=== PATIENT | male | born 1970 | race Caucasian/White ===

== ENCOUNTER 2018-09-21 15:08 | Inpatient (IN) | payer OTHER, SELFPAY ==
--- NOTE | 2018-09-21 16:33 | RAD ---
SINGLE VIEW OF THE CHEST: Comparison: 09-24-16 History: Chest pain, shortness of breath. FINDINGS: Single view of the chest shows an enlarged but stable cardiomediastinal silhouette. Multifocal mixed opacities are seen scattered throughout the lungs. IMPRESSION: Scattered multifocal opacities may represent pulmonary edema or multifocal infiltrates. POS: [facility]
[2018-09-21] MEDS ORDERED: Morphine 2 MG/ML SYRINGE ONE (17:19)
[2018-09-21] MEDS ORDERED: cefTRIAXone\\ROCEPHIN 2 GM VIAL ONE (17:20)
[2018-09-21 17:26] LABS: #Eosinphils 0.1 thou/uL (0.0-0.7); #Lymphocytes 2.6 thou/uL (1.20-3.40); #Monocytes 0.9 thou/uL (0.11-0.59); #Neutrophils 7.5 thou/uL (1.40-6.50); %Basophils 0.2 % (0.0-1.0); %Eosinophils 0.6 % (0.0-10.0); %Lymphocytes 23.7 % (21.0-51.0); %Monocytes 7.9 % (0.0-10.0); %Neutrophils 67.5 % (42.0-75.0); Hemoglobin 15.9 g/dL (14.0-18.0); Mean Corpuscular HGB CONC 34.2 g/dL (32.0-36.0); Mean Corpuscular Hemoglobin 35.2 pg (27.0-31.0); Mean Platelet Volume 7.3 fL (7.4-10.4); Platelet Count 266 thou/uL (130-400); RBC Distribution Width 13.5 % (11.5-14.5); Red Blood Cell (RBC) Count 4.52 mill/uL (4.70-6.10); White Blood Cell (WBC) Count 11.1 thou/uL (4.8-10.8)
--- NOTE | 2018-09-21 17:47 | ULT ---
BILATERAL LOWER EXTREMITY VENOUS ULTRASOUND: Comparison: 09-24-16 History: Severe bilateral lower extremity edema. Technique: Multiplanar grayscale and color doppler images were obtained in a bilateral lower extremit y venous ultrasound. Spectral analysis of the doppler waveforms were performed. FINDINGS: This is exam is limited due to patient's large body habitus. No thrombus is visualized within the com mon femoral veins, profunda femoral veins, superficial femoral veins, or popliteal veins. There is la ck of compressibility of the bilateral superficial femoral veins, but is likely to be secondary to shaniqua damon's body habitus rather than thrombus. The popliteal veins were unable to be seen on either side. The posterior tibial veins were unable to be seen. Greater saphenous vein is patent bilaterally. IMPRESSION: Limited exam without obvious thrombus in the venous structures above the knee. POS: [facility]
[2018-09-21 17:52] LABS: ALT (SGPT) 20 U/L (8-55); AST (SGOT) 24 U/L (5-34); Albumin 3.5 g/dL (3.5-5.0); Alkaline Phosphatase 123 U/L (40-150); Anion Gap 14 mmol/L (10-20); BUN (Urea Nitrogen) Less than 4 mg/dL (8.9-20.6); CK (CPK) 38 U/L (30-200); Calc. Creatinine Clearance 0 mL/min (70-130); Calcium 9.5 mg/dL (7.8-10.44); Carbon Dioxide 32 mmol/L (22-29); Chloride 90 mmol/L (98-107); Estimated GFR-MDRD Greater than 90; Globulin 3.6 g/dL (2.4-3.5); Glucose 93 mg/dL (70-105); Potassium 3.3 mmol/L (3.5-5.1); Protein, Total 7.1 g/dL (6.0-8.3); Sodium 133 mmol/L (136-145)
[2018-09-21 17:56] LABS: CKMB 0.9 ng/mL (0-6.6); Troponin I Less than 0.010 ng/mL (< 0.028)
[2018-09-21] MEDS ORDERED: Azithromycin 500 MG VIAL ONE (18:50)
[2018-09-21] MEDS ORDERED: Ondansetron ODT 4 MG TAB PO PRN (20:19)
[2018-09-21] MEDS ORDERED: Calcium Carbonate 500 MG ChewTAB PO PRN (20:19)
[2018-09-21] MEDS ORDERED: Zolpidem Tartrate 5 MG TAB PO PRN (20:19)
[2018-09-21] MEDS ORDERED: Acetaminophen 325 MG TAB PO PRN (20:19)
[2018-09-21] MEDS ORDERED: Ondansetron PF 4 MG/2 ML Vial IVP PRN (20:19)
[2018-09-21] MEDS ORDERED: Famotidine 20 MG TAB ONE (23:29)
[2018-09-22 03:52] LABS: #Lymphocytes 2.7 thou/uL (1.20-3.40); #Monocytes 0.8 thou/uL (0.11-0.59); #Neutrophils 6.5 thou/uL (1.40-6.50); %Basophils 0.2 % (0.0-1.0); %Eosinophils 0.5 % (0.0-10.0); %Neutrophils 64.3 % (42.0-75.0); Hemoglobin 14.9 g/dL (14.0-18.0); Mean Corpuscular HGB CONC 33.8 g/dL (32.0-36.0); Mean Corpuscular Hemoglobin 35.2 pg (27.0-31.0); Mean Platelet Volume 7.2 fL (7.4-10.4); Platelet Count 245 thou/uL (130-400); RBC Distribution Width 13.7 % (11.5-14.5); Red Blood Cell (RBC) Count 4.23 mill/uL (4.70-6.10)
[2018-09-22 04:09] LABS: Anion Gap 12 mmol/L (10-20); BUN (Urea Nitrogen) 5 mg/dL (8.9-20.6); Calc. Creatinine Clearance 0 mL/min (70-130); Carbon Dioxide 33 mmol/L (22-29); Chloride 93 mmol/L (98-107); Estimated GFR-MDRD Greater than 90; Glucose 105 mg/dL (70-105); Potassium 3.5 mmol/L (3.5-5.1); Sodium 134 mmol/L (136-145)
[2018-09-22] MEDS ORDERED: Furosemide 40 MG/4 ML VIAL ONE (05:58)
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
--- NOTE | 2018-09-22 09:15 | PDOC.PN ---
- Subjective Encounter Start Date: 09/22/18 Encounter Start Time: 09:13 Subjective: pleuritic pain with coughing - Objective Resuscitation Status - Order Detail: 09/21/18 20:19 Resuscitation Status Routine Resuscitation Status: FULL: Full Resuscitation MAR Reviewed: Yes Vital Signs & Weight: Vital Signs (12 hours) Pulse Resp Pulse Ox 09/22/18 06:54 90 20 93 L 09/21/18 23:19 93 L 09/21/18 23:18 103 H 22 H 93 L Result Diagrams: 09/22/18 03:33 09/22/18 03:33 Phys Exam - Physical Examination Neck: no JVD Respiratory: clear to auscultation bilateral Cardiovascular: RRR, no significant murmur Gastrointestinal: soft, positive bowel sounds lymphedema, chronic severe changes Dx/Plan (1) Chronic hypercapnic respiratory failure Code(s): J96.12 - CHRONIC RESPIRATORY FAILURE WITH HYPERCAPNIA Status: Acute (2) Alcohol abuse Code(s): F10.10 - ALCOHOL ABUSE, UNCOMPLICATED Status: Acute (3) COPD exacerbation Code(s): J44.1 - CHRONIC OBSTRUCTIVE PULMONARY DISEASE W (ACUTE) EXACERBATION Status: Acute (4) HTN (hypertension) Code(s): I10 - ESSENTIAL (PRIMARY) HYPERTENSION Status: Acute (5) Lymphedema of both lower extremities Code(s): I89.0 - LYMPHEDEMA, NOT ELSEWHERE CLASSIFIED Status: Acute (6) Pickwickian syndrome Code(s): E66.2 - MORBID (SEVERE) OBESITY WITH ALVEOLAR HYPOVENTILATION Status : Acute (7) Tobacco abuse Code(s): Z72.0 - TOBACCO USE Status: Acute (8) Morbid obesity Code(s): E66.01 - MORBID (SEVERE) OBESITY DUE TO EXCESS CALORIES Status: Chronic - Plan cont tx for COPD exac -: cont iv lasix -: cxr does not appear changed on my review * .
[2018-09-22] MEDS ORDERED: predniSONE 20 MG TAB ONE (09:18)
[2018-09-22] MEDS ORDERED: Famotidine/PF 20 mg/2ml Vial ONE (09:18)
[2018-09-22] MEDS ORDERED: Enoxaparin Sodium 40 MG/0.4 ML SYRINGE ONE ×2 (09:18)
[2018-09-22] MEDS ORDERED: Acetaminophen 325 MG TAB ONE (12:47)
[2018-09-22] MEDS: Famotidine 20 MG TAB PO SCH ×2 (15:08→20:42)
[2018-09-22] MEDS: Famotidine/PF 20 mg/2ml Vial SLOW IVP SCH ×2 (15:08→20:42)
[2018-09-22] MEDS: Enoxaparin Sodium 40 MG/0.4 ML SYRINGE SC SCH (15:09)
[2018-09-22] MEDS: predniSONE 20 MG TAB PO SCH (15:09)
[2018-09-22] MEDS: Furosemide 40 MG/4 ML VIAL SLOW IVP SCH ×2 (15:09→17:04)
[2018-09-23] MEDS: Furosemide 40 MG/4 ML VIAL SLOW IVP SCH ×2 (05:59→15:32)
[2018-09-23] MEDS: predniSONE 20 MG TAB PO SCH (08:26)
[2018-09-23] MEDS: Enoxaparin Sodium 40 MG/0.4 ML SYRINGE SC SCH (08:26)
[2018-09-23] MEDS: Famotidine 20 MG TAB PO SCH ×2 (08:26→20:17)
[2018-09-23] MEDS: Famotidine/PF 20 mg/2ml Vial SLOW IVP SCH ×2 (08:27→20:17)
--- NOTE | 2018-09-23 10:27 | PDOC.PN ---
- Subjective Encounter Start Date: 09/23/18 Encounter Start Time: 10:26 Subjective: less sob - Objective Resuscitation Status - Order Detail: 09/21/18 20:19 Resuscitation Status Routine Resuscitation Status: FULL: Full Resuscitation MAR Reviewed: Yes Vital Signs & Weight: Vital Signs (12 hours) Temp Pulse Resp BP BP Pulse Ox 09/23/18 07:24 98 F 90 21 H 147/72 H 91 L 09/23/18 07:06 90 18 09/23/18 04:00 97.9 F 88 20 157/83 H 92 L 09/23/18 01:23 87 18 89 L 09/23/18 00:00 97.7 F 92 20 143/68 H 92 L I&O: 09/22/18 09/23/18 09/24/18 06:59 06:59 06:59 Intake Total 630 Output Total 2400 200 Balance -1770 -200 Result Diagrams: 09/22/18 03:33 09/22/18 03:33 Phys Exam - Physical Examination Neck: no JVD Respiratory: clear to auscultation bilateral Cardiovascular: RRR, no significant murmur Gastrointestinal: soft, positive bowel sounds 4+ lymphedema Dx/Plan (1) Chronic hypercapnic respiratory failure Code(s): J96.12 - CHRONIC RESPIRATORY FAILURE WITH HYPERCAPNIA Status: Acute (2) Alcohol abuse Code(s): F10.10 - ALCOHOL ABUSE, UNCOMPLICATED Status: Acute (3) COPD exacerbation Code(s): J44.1 - CHRONIC OBSTRUCTIVE PULMONARY DISEASE W (ACUTE) EXACERBATION Status: Acute (4) HTN (hypertension) Code(s): I10 - ESSENTIAL (PRIMARY) HYPERTENSION Status: Acute (5) Lymphedema of both lower extremities Code(s): I89.0 - LYMPHEDEMA, NOT ELSEWHERE CLASSIFIED Status: Acute (6) Pickwickian syndrome Code(s): E66.2 - MORBID (SEVERE) OBESITY WITH ALVEOLAR HYPOVENTILATION Status : Acute (7) Tobacco abuse Code(s): Z72.0 - TOBACCO USE Status: Acute (8) Morbid obesity Code(s): E66.01 - MORBID (SEVERE) OBESITY DUE TO EXCESS CALORIES Status: Chronic - Plan cont iv lasix -: cont nebs, levaquin, teper steroids * .
[2018-09-24] MEDS: Furosemide 40 MG/4 ML VIAL SLOW IVP SCH ×2 (05:30→15:07)
[2018-09-24] MEDS: Famotidine 20 MG TAB PO SCH ×2 (08:13→20:00)
[2018-09-24] MEDS: Famotidine/PF 20 mg/2ml Vial SLOW IVP SCH ×2 (08:14→20:00)
[2018-09-24] MEDS: predniSONE 20 MG TAB PO SCH (08:14)
[2018-09-24] MEDS: Enoxaparin Sodium 40 MG/0.4 ML SYRINGE SC SCH (08:14)
--- NOTE | 2018-09-24 09:43 | PDOC.PN ---
- Subjective Encounter Start Date: 09/24/18 Encounter Start Time: 09:41 Subjective: some SOB, desats quickly with exertion - Objective Resuscitation Status - Order Detail: 09/21/18 20:19 Resuscitation Status Routine Resuscitation Status: FULL: Full Resuscitation MAR Reviewed: Yes Vital Signs & Weight: Vital Signs (12 hours) Temp Pulse Resp BP BP Pulse Ox 09/24/18 08:08 98.6 F 104 H 20 107/61 90 L 09/24/18 06:56 89 20 92 L 09/24/18 04:00 98.1 F 107 H 20 112/62 90 L 09/24/18 01:39 97.8 F 93 18 128/76 92 L 09/24/18 00:08 93 20 92 L I&O: 09/23/18 09/24/18 09/25/18 06:59 06:59 06:59 Intake Total 630 Output Total 2400 3000 Balance -1770 -3000 Result Diagrams: 09/22/18 03:33 09/22/18 03:33 Phys Exam - Physical Examination Neck: no JVD Respiratory: clear to auscultation bilateral Cardiovascular: RRR, no significant murmur Gastrointestinal: soft, positive bowel sounds 4+ lymphedema Dx/Plan (1) Chronic hypercapnic respiratory failure Code(s): J96.12 - CHRONIC RESPIRATORY FAILURE WITH HYPERCAPNIA Status: Acute (2) Alcohol abuse Code(s): F10.10 - ALCOHOL ABUSE, UNCOMPLICATED Status: Acute (3) COPD exacerbation Code(s): J44.1 - CHRONIC OBSTRUCTIVE PULMONARY DISEASE W (ACUTE) EXACERBATION Status: Acute (4) HTN (hypertension) Code(s): I10 - ESSENTIAL (PRIMARY) HYPERTENSION Status: Acute Qualifiers: Hypertension type: essential hypertension Qualified Code(s): I10 - Essential (primary) hypertension (5) Lymphedema of both lower extremities Code(s): I89.0 - LYMPHEDEMA, NOT ELSEWHERE CLASSIFIED Status: Acute (6) Pickwickian syndrome Code(s): E66.2 - MORBID (SEVERE) OBESITY WITH ALVEOLAR HYPOVENTILATION Status : Acute (7) Tobacco abuse Code(s): Z72.0 - TOBACCO USE Status: Acute (8) Morbid obesity Code(s): E66.01 - MORBID (SEVERE) OBESITY DUE TO EXCESS CALORIES Status: Chronic - Plan CXR, ABG, CBC-then reevaluate * .
[2018-09-24 09:57] LABS: Actual Bicarbonate (HCO3a) 33.4 mEq/L (22-28); Base Excess (BEa) 9.1 mEq/L (-2.0 to +3.0); CO2 Tension 43.8 mmHg (35.0-45.0); Calcium, Ionized 1.09 mmol/L (1.12-1.30); Carboxyhemoglobin (COHb) 2.3 gm% (0.0-3.0); Hemoglobin (Hb) 14.9 g/dL (14.0-18.0); Potassium - ABG Lab 3.54 mmol/L (3.70-5.30)
[2018-09-24 09:59] LABS: Puncture Site RRA
[2018-09-24 10:32] LABS: #Lymphocytes 1.5 thou/uL (1.20-3.40); #Monocytes 0.8 thou/uL (0.11-0.59); #Neutrophils 7.3 thou/uL (1.40-6.50); %Basophils 0.3 % (0.0-1.0); %Eosinophils 0.3 % (0.0-10.0); %Lymphocytes 15.7 % (21.0-51.0); %Monocytes 8.4 % (0.0-10.0); %Neutrophils 75.2 % (42.0-75.0); Hemoglobin 14.3 g/dL (14.0-18.0); Mean Corpuscular HGB CONC 31.9 g/dL (32.0-36.0); Mean Corpuscular Hemoglobin 33.4 pg (27.0-31.0); Mean Platelet Volume 7.3 fL (7.4-10.4); Platelet Count 258 thou/uL (130-400); RBC Distribution Width 13.4 % (11.5-14.5); Red Blood Cell (RBC) Count 4.27 mill/uL (4.70-6.10); White Blood Cell (WBC) Count 9.7 thou/uL (4.8-10.8)
--- NOTE | 2018-09-24 11:40 | RAD ---
CHEST ONE VIEW: History: Pneumonia. Comparison: 09-21-18 FINDINGS: Cardiac silhouette is magnified and enlarged. Pulmonary vasculature is more engorged than on the prio r study. Patient has had severe wide spread interstitial opacity for many years. It has become progressively m ore severe. No lobar consolidation is evident. No evidence of pneumothorax. IMPRESSION: 1. CHF is favored to be present, upon chronic/worsening interstitial lung disease. 2. No lobar consolidation is evident. POS: [facility]
--- NOTE | 2018-09-24 16:42 | PDOC.EVN ---
Event Note - Event Note Event Note: reviewed cxr, cbc, abg- pulmonology consult
[2018-09-25] MEDS: Furosemide 40 MG/4 ML VIAL SLOW IVP SCH ×2 (05:00→14:34)
[2018-09-25] MEDS: Famotidine/PF 20 mg/2ml Vial SLOW IVP SCH ×2 (08:37→20:14)
[2018-09-25] MEDS: Enoxaparin Sodium 40 MG/0.4 ML SYRINGE SC SCH (08:43)
[2018-09-25] MEDS: predniSONE 20 MG TAB PO SCH (08:43)
[2018-09-25] MEDS: Famotidine 20 MG TAB PO SCH ×2 (08:43→20:13)
--- NOTE | 2018-09-25 08:47 | PDOC.PN ---
- Subjective Encounter Start Date: 09/25/18 Encounter Start Time: 08:45 Subjective: less sob, pos 3000ml diuresis - Objective Resuscitation Status - Order Detail: 09/21/18 20:19 Resuscitation Status Routine Resuscitation Status: FULL: Full Resuscitation Vital Signs & Weight: Vital Signs (12 hours) Temp Pulse Resp BP Pulse Ox 09/25/18 07:15 98.6 F 103 H 22 H 114/64 90 L 09/25/18 06:45 97 16 93 L 09/25/18 04:09 91 L 09/25/18 00:19 95 09/25/18 00:14 102 H 16 94 L I&O: 09/24/18 09/25/18 09/26/18 06:59 06:59 06:59 Intake Total 950 Output Total 5729 5865 Balance -3965 -9692 Result Diagrams: 09/24/18 09:58 09/22/18 03:33 Phys Exam - Physical Examination Constitutional: NAD Neck: no JVD Respiratory: clear to auscultation bilateral Cardiovascular: RRR, no significant murmur Gastrointestinal: soft 4+ lymphedema Dx/Plan (1) Chronic hypercapnic respiratory failure Code(s): J96.12 - CHRONIC RESPIRATORY FAILURE WITH HYPERCAPNIA Status: Acute (2) Alcohol abuse Code(s): F10.10 - ALCOHOL ABUSE, UNCOMPLICATED Status: Acute (3) COPD exacerbation Code(s): J44.1 - CHRONIC OBSTRUCTIVE PULMONARY DISEASE W (ACUTE) EXACERBATION Status: Acute (4) HTN (hypertension) Code(s): I10 - ESSENTIAL (PRIMARY) HYPERTENSION Status: Acute Qualifiers: Hypertension type: essential hypertension Qualified Code(s): I10 - Essential (primary) hypertension (5) Lymphedema of both lower extremities Code(s): I89.0 - LYMPHEDEMA, NOT ELSEWHERE CLASSIFIED Status: Acute (6) Pickwickian syndrome Code(s): E66.2 - MORBID (SEVERE) OBESITY WITH ALVEOLAR HYPOVENTILATION Status : Acute (7) Tobacco abuse Code(s): Z72.0 - TOBACCO USE Status: Acute (8) Morbid obesity Code(s): E66.01 - MORBID (SEVERE) OBESITY DUE TO EXCESS CALORIES Status: Chronic - Plan cont antibx, nebs -: cont diuresis -: discuss with pulmonology * .
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
[2018-09-26] MEDS: Furosemide 40 MG/4 ML VIAL SLOW IVP SCH ×2 (05:22→15:22)
[2018-09-26] MEDS: Famotidine/PF 20 mg/2ml Vial SLOW IVP SCH ×2 (08:47→20:35)
[2018-09-26] MEDS: Enoxaparin Sodium 40 MG/0.4 ML SYRINGE SC SCH (08:48)
[2018-09-26] MEDS: Famotidine 20 MG TAB PO SCH ×2 (08:48→22:29)
[2018-09-26] MEDS: predniSONE 20 MG TAB PO SCH (08:48)
--- NOTE | 2018-09-26 08:53 | PRG ---
DATE OF SERVICE: 09/26/2018 SUBJECTIVE: He feels better. He is continuing diuresis profusely. OBJECTIVE: VITAL SIGNS: Temperature is 98.5, pulse 97, respirations 18, O2 saturation 92% on 3 L, and blood pressure 109/57. Intake 850, output 5900. HEENT: Unremarkable. NECK: No JVD. LUNGS: Clear, but distant. CARDIAC: S1 and S2, regular. ABDOMEN: Obese. EXTREMITIES: Edematous. ASSESSMENT: 1. Biventricular heart failure with significant edema. 2. Probable underlying sleep apnea. PLAN: He is continuing diuresis. Hopefully that will help the appearance of his chest x-ray. Pulmonary will be available as concerns arise. Job ID: [id number]
--- NOTE | 2018-09-26 13:52 | PDOC.PN ---
- Subjective Encounter Start Date: 09/26/18 Encounter Start Time: 10:10 Doing a little better. Breathing slightly better. Says he typically does get up and around a little at home. - Objective Resuscitation Status - Order Detail: 09/21/18 20:19 Resuscitation Status Routine Resuscitation Status: FULL: Full Resuscitation Vital Signs & Weight: Vital Signs (12 hours) Temp Pulse Resp BP BP Pulse Ox 09/26/18 11:45 92 16 93 L 09/26/18 11:35 98.8 F 92 18 116/67 90 L 09/26/18 08:00 98.5 F 97 18 109/57 L 90 L 09/26/18 05:48 95 16 92 L 09/26/18 05:00 99 F 95 20 119/71 92 L I&O: 09/25/18 09/26/18 09/27/18 06:59 06:59 06:59 Intake Total 950 850 Output Total 7251 5900 Balance -0725 -6390 Result Diagrams: 09/24/18 09:58 09/22/18 03:33 Phys Exam - Physical Examination Constitutional: NAD Morbidly obese. Respiratory: no wheezing, no rhonchi Scattered mild rales and coarse breath sounds. Cardiovascular: RRR, no significant murmur, no rub Gastrointestinal: soft, non-tender, no distention, positive bowel sounds Musculoskeletal: no edema Neurological: non-focal Psychiatric: normal affect, A&O x 3 Deviation from normal: Severe hypertrophic chronic stasis dermatitis LE's. Dx/Plan - Plan * .
[2018-09-27] MEDS: Furosemide 40 MG/4 ML VIAL SLOW IVP SCH (06:29)
[2018-09-27 07:05] LABS: #Basophils 0.1 thou/uL (0.0-0.2); #Eosinphils 0.1 thou/uL (0.0-0.7); #Lymphocytes 2.8 thou/uL (1.20-3.40); #Neutrophils 7.4 thou/uL (1.40-6.50); %Basophils 0.6 % (0.0-1.0); %Eosinophils 0.8 % (0.0-10.0); %Lymphocytes 24.9 % (21.0-51.0); %Monocytes 8.8 % (0.0-10.0); %Neutrophils 64.8 % (42.0-75.0); Hemoglobin 15.5 g/dL (14.0-18.0); Mean Corpuscular HGB CONC 32.9 g/dL (32.0-36.0); Mean Corpuscular Hemoglobin 33.9 pg (27.0-31.0); Mean Platelet Volume 7.2 fL (7.4-10.4); Platelet Count 303 thou/uL (130-400); RBC Distribution Width 13.2 % (11.5-14.5); Red Blood Cell (RBC) Count 4.57 mill/uL (4.70-6.10); White Blood Cell (WBC) Count 11.4 thou/uL (4.8-10.8)
[2018-09-27 07:26] LABS: Albumin 3.4 g/dL (3.5-5.0); Chloride 98 mmol/L (98-107)
[2018-09-27 07:27] LABS: Calcium 9.1 mg/dL (7.8-10.44); Potassium 4.4 mmol/L (3.5-5.1); Sodium 134 mmol/L (136-145)
[2018-09-27 07:28] LABS: Globulin 3.2 g/dL (2.4-3.5); Glucose 106 mg/dL (70-105); Protein, Total 6.6 g/dL (6.0-8.3)
[2018-09-27 07:29] LABS: Anion Gap 14 mmol/L (10-20); Carbon Dioxide 26 mmol/L (22-29)
[2018-09-27 07:30] LABS: Bilirubin, Total 1.1 mg/dL (0.2-1.2)
[2018-09-27 07:31] LABS: Alkaline Phosphatase 101 U/L (40-150); Calc. Creatinine Clearance 0 mL/min (70-130); Estimated GFR-MDRD Greater than 90
[2018-09-27 07:32] LABS: BUN (Urea Nitrogen) 13 mg/dL (8.9-20.6)
[2018-09-27 07:33] LABS: AST (SGOT) 47 U/L (5-34)
[2018-09-27 07:34] LABS: ALT (SGPT) 49 U/L (8-55)
[2018-09-27] MEDS: Famotidine/PF 20 mg/2ml Vial SLOW IVP SCH ×2 (07:54→20:10)
[2018-09-27] MEDS: Enoxaparin Sodium 40 MG/0.4 ML SYRINGE SC SCH (07:54)
[2018-09-27] MEDS: predniSONE 20 MG TAB PO SCH (07:54)
[2018-09-27] MEDS: Famotidine 20 MG TAB PO SCH ×2 (07:54→20:50)
--- NOTE | 2018-09-27 13:06 | PDOC.PN ---
- Subjective Encounter Start Date: 09/27/18 Encounter Start Time: 11:15 Patient is feeling better. Getting back to his baseline. Was able to get up to bathroom to get bathed. Gives history that he was given Lasix and HCTZ and lost 120 pounds over several months. He was getting routine monthly labs. He was told at one point that his kidneys were failing and to stop the HCTZ. He went to see the provider and was told that his kidneys and liver were failing and that he was terminal. He left that clinic out of frustration and therefore did not have any more diuretics. He then regained substantial weight and edema. - Objective Resuscitation Status - Order Detail: 09/21/18 20:19 Resuscitation Status Routine Resuscitation Status: FULL: Full Resuscitation Vital Signs & Weight: Vital Signs (12 hours) Temp Pulse Resp BP Pulse Ox 09/27/18 11:36 91 18 93 L 09/27/18 08:12 98.7 F 91 18 165/69 H 92 L 09/27/18 05:55 94 18 92 L I&O: 09/26/18 09/27/18 09/28/18 06:59 06:59 06:59 Intake Total 850 900 Output Total 5900 3900 Balance -5050 -3000 Result Diagrams: 09/27/18 06:50 09/27/18 06:50 Phys Exam - Physical Examination Constitutional: NAD Appears to have JULIA while sleeping. Fairly easily awakened. NAD. Respiratory: no wheezing, no rales, no rhonchi, clear to auscultation bilateral Cardiovascular: RRR, no significant murmur, no rub Gastrointestinal: soft, non-tender, no distention Substantial obesity in LE's, but edema largely resolved. Neurological: non-focal, normal sensation Psychiatric: normal affect, A&O x 3 Deviation from normal: Chronic, severe stasis dermatitis with thick scaling. Dx/Plan (1) Acute respiratory failure Code(s): J96.00 - ACUTE RESPIRATORY FAILURE, UNSP W HYPOXIA OR HYPERCAPNIA Status: Acute (2) Right heart failure Status: Chronic (3) Chronic hypercapnic respiratory failure Code(s): J96.12 - CHRONIC RESPIRATORY FAILURE WITH HYPERCAPNIA Status: Chronic (4) HTN (hypertension) Code(s): I10 - ESSENTIAL (PRIMARY) HYPERTENSION Status: Chronic Qualifiers: Hypertension type: essential hypertension Qualified Code(s): I10 - Essential (primary) hypertension (5) Lymphedema of both lower extremities Code(s): I89.0 - LYMPHEDEMA, NOT ELSEWHERE CLASSIFIED Status: Chronic (6) Pickwickian syndrome Code(s): E66.2 - MORBID (SEVERE) OBESITY WITH ALVEOLAR HYPOVENTILATION Status : Chronic (7) Tobacco abuse Code(s): Z72.0 - TOBACCO USE Status: Chronic (8) Morbid obesity Code(s): E66.01 - MORBID (SEVERE) OBESITY DUE TO EXCESS CALORIES Status: Chronic - Plan * Very close to his baseline. Will change IV's meds to po today. * Ambulate today. * Anticipate discharge tomorrow for outpatient followup. * Continue diuresis.
[2018-09-27] MEDS: Furosemide 40 MG TAB PO SCH (13:52)
[2018-09-28 06:36] LABS: #Basophils 0.1 thou/uL (0.0-0.2); #Eosinphils 0.1 thou/uL (0.0-0.7); #Lymphocytes 2.9 thou/uL (1.20-3.40); #Neutrophils 7.6 thou/uL (1.40-6.50); %Basophils 0.7 % (0.0-1.0); %Lymphocytes 24.6 % (21.0-51.0); %Monocytes 8.8 % (0.0-10.0); %Neutrophils 64.9 % (42.0-75.0); Hemoglobin 15.2 g/dL (14.0-18.0); Mean Corpuscular HGB CONC 32.8 g/dL (32.0-36.0); Mean Corpuscular Hemoglobin 33.6 pg (27.0-31.0); Mean Platelet Volume 7.2 fL (7.4-10.4); Platelet Count 301 thou/uL (130-400); RBC Distribution Width 13.1 % (11.5-14.5); Red Blood Cell (RBC) Count 4.52 mill/uL (4.70-6.10); White Blood Cell (WBC) Count 11.7 thou/uL (4.8-10.8)
[2018-09-28 06:53] LABS: Anion Gap 10 mmol/L (10-20); BUN (Urea Nitrogen) 14 mg/dL (8.9-20.6); Calc. Creatinine Clearance 0 mL/min (70-130); Calcium 9.1 mg/dL (7.8-10.44); Carbon Dioxide 31 mmol/L (22-29); Chloride 97 mmol/L (98-107); Estimated GFR-MDRD Greater than 90; Glucose 98 mg/dL (70-105); Potassium 4.1 mmol/L (3.5-5.1); Sodium 134 mmol/L (136-145)
[2018-09-28 07:25] VITALS: BP 136/74; TEMP 98.4
[2018-09-28] MEDS: Famotidine/PF 20 mg/2ml Vial SLOW IVP SCH (08:09)
[2018-09-28] MEDS: Famotidine 20 MG TAB PO SCH (08:11)
[2018-09-28] MEDS: Enoxaparin Sodium 40 MG/0.4 ML SYRINGE SC SCH (08:11)
[2018-09-28] MEDS: predniSONE 20 MG TAB PO SCH (08:11)
[2018-09-28] MEDS: Furosemide 40 MG TAB PO SCH (08:11)
--- NOTE | 2018-09-30 09:03 | DIS ---
DATE OF ADMISSION: 09/21/2018 DATE OF DISCHARGE: 09/28/2018 DISCHARGE DIAGNOSES: 1. Acute respiratory failure. 2. Right heart failure. 3. Chronic hypercapnic respiratory failure. 4. Hypertension. 5. Chronic lymphedema of both lower extremities. 6. Pickwickian syndrome. 7. Tobacco abuse. 8. Morbid obesity. HISTORY: This patient is a 48-year-old male, who is substantially obese, who has some chronic stasis in his lower extremities. The patient reports that he had been going to a clinic and was prescribed diuretics including Lasix and spironolactone for his severe fluid retention in his legs. He reports that he lost approximately 120 pounds with the diuretics. He reports he was getting regular lab work. He was subsequently told to follow up with the clinic, where he was told that he had kidney and liver failure and that he was terminal. He decided that he did not want to follow up with that clinic any further because of this, and he subsequently had no more access to his diuretics. He then gained about another 100 pounds and presented to the emergency department with complaints of dyspnea on exertion and generalized shortness of breath. His initial chest x-ray was concerning for the possibility of some pulmonary edema. Of note, the patient was also a continued fairly heavy smoker. HOSPITAL COURSE: The patient was admitted to the hospital with shortness of breath, likely a result of fluid overload and potentially some COPD. He was initially thought to possibly have some cellulitis of the lower extremities as well and he was started on antibiotics including vancomycin. The patient was started back on diuretics as well, and over the following several days, had substantial diuresis. The patient continued to have improvement and was able to become more functional and less short of breath. His lower extremities had decrease in erythema and it was felt that this was more likely related to chronic stasis dermatitis than it was acute infection, antibiotics were discontinued. He was seen in consultation by Pulmonology. The patient certainly was deserving a more workup. However, his morbid obesity made it impossible for him to undergo some of the testing that would have been appropriate including CT scan of the chest. The patient was felt to likely have congestive heart failure related to diastolic dysfunction and likely some systolic function as well, although this could not be fully elucidated given limitations of his workup. Ultimately, he did respond well to the antibiotics and felt like he was back to his baseline breathing and functional status. PHYSICAL EXAMINATION: VITAL SIGNS: On the day of discharge, temperature 98.4, pulse 93, respirations 20, O2 saturation 93% on 3 L, and BP was 136/74. GENERAL: He is awake, alert, oriented, pleasant, and cooperative. HEART: Regular rate and rhythm without murmurs, gallops, or rubs. LUNGS: Clear, slightly diminished. ABDOMEN: Morbidly obese, nondistended, and nontender. EXTREMITIES: Had persistent erythema and chronic thickened skin with scaling, but no evidence of acute cellulitic changes. DISPOSITION: The patient was strongly advised to quit smoking. He stated that he felt confident that he could stop smoking on his own as he had done it previously. He reports that his also smoked, but was very good about staying away from him. When she did so, so as not to make it harder for him to quit. He also understands that he likely has obstructive sleep apnea and needs to get full testing once he is capable of doing so as an outpatient. The patient is discharged to home. He is to be on a regular diet. His activity level is as tolerated. He will be on Lasix 40 mg p.o. daily. He is to follow up with Dr. Gurmeet Negrete as an outpatient. He can return to the hospital should he have any problems prior to that time. The patient also has information on establishing with a new PCP provider as well. Job ID: [id number]
== END 2018-09-28 13:09 | disposition home or self-care (01) | DRG 291 ==
LOC: ERS 15:08 → ERHOLD 19:49 → T4-A 09-22 14:39
PROVIDERS: ADMIT Internal Medicine; ATTEND Internal Medicine
PROC: B51D1ZZ Fluoroscopy of Bilateral Lower Extremity Veins using Low Osmolar Contrast (ICD-10-PCS; principal; 2018-09-21)
DX: I11.0 Hypertensive heart disease with heart failure (principal); J96.22 Acute and chronic respiratory failure with hypercapnia; J44.1 Chronic obstructive pulmonary disease with (acute) exacerbation; E66.2 Morbid (severe) obesity with alveolar hypoventilation; I50.42 Chronic combined systolic (congestive) and diastolic (congestive) heart failure; F10.10 Alcohol abuse, uncomplicated; I89.0 Lymphedema, not elsewhere classified; F17.210 Nicotine dependence, cigarettes, uncomplicated; E66.01 Morbid (severe) obesity due to excess calories; G47.33 Obstructive sleep apnea (adult) (pediatric)
CPT/HCPCS: 36415; 71045; 80048; 80053; 82550; 82553; 82805; 83880; 84484; 85025; 85379; 93005; 93970; 94640; 96365; 96366; 96367; 96375; 99406; J0456; J0696; J1650; J1940; J1956; J2270; J3370; J7050; J7506; J7620; S0028

== ENCOUNTER 2019-02-09 10:11 | Inpatient (IN) | payer SELFPAY ==
--- NOTE | 2019-02-09 10:44 | RAD ---
PORTABLE CHEST 1 VIEW: DATE: 02/09/2019. TIME: 10:21 a.m. HISTORY: Dyspnea. FINDINGS: Comparison is made with the exam of 09/24/2018. The heart is enlarged. There is pulmonary vascular congestion. Plate of atelectasis versus infiltra te is seen in the left mid lung. No pneumothoraces or large effusions are identified. POS: [facility]
[2019-02-09 11:07] LABS: #Eosinphils 0.1 thou/uL (0.0-0.7); #Lymphocytes 2.7 thou/uL (1.20-3.40); #Monocytes 0.7 thou/uL (0.11-0.59); #Neutrophils 5.2 thou/uL (1.40-6.50); %Basophils 0.5 % (0.0-1.0); %Eosinophils 1.2 % (0.0-10.0); %Lymphocytes 31.3 % (21.0-51.0); %Monocytes 7.8 % (0.0-10.0); %Neutrophils 59.1 % (42.0-75.0); Hemoglobin 16.7 g/dL (14.0-18.0); Mean Corpuscular HGB CONC 32.2 g/dL (32.0-36.0); Mean Corpuscular Hemoglobin 32.9 pg (27.0-31.0); Mean Platelet Volume 8.5 fL (7.4-10.4); Platelet Count 236 thou/uL (130-400); RBC Distribution Width 14.1 % (11.5-14.5); Red Blood Cell (RBC) Count 5.06 mill/uL (4.70-6.10); White Blood Cell (WBC) Count 8.7 thou/uL (4.8-10.8)
[2019-02-09] MEDS ORDERED: Aspirin Chewable 81 MG TAB ONE (11:59)
[2019-02-09 12:05] LABS: ALT (SGPT) 40 U/L (8-55); AST (SGOT) 55 U/L (5-34); Albumin 3.1 g/dL (3.5-5.0); Alkaline Phosphatase 124 U/L (40-150); Anion Gap 17 mmol/L (10-20); BUN (Urea Nitrogen) Less than 4 mg/dL (8.9-20.6); Bilirubin, Total 0.8 mg/dL (0.2-1.2); CK (CPK) 29 U/L (30-200); Calc. Creatinine Clearance 0 mL/min (70-130); Calcium 9.1 mg/dL (7.8-10.44); Carbon Dioxide 28 mmol/L (22-29); Chloride 95 mmol/L (98-107); Estimated GFR-MDRD Greater than 90; Globulin 3.9 g/dL (2.4-3.5); Glucose 76 mg/dL (70-105); Potassium 3.6 mmol/L (3.5-5.1); Sodium 136 mmol/L (136-145)
[2019-02-09 14:03] LABS: Troponin I Less than 0.010 ng/mL (< 0.028)
[2019-02-09 15:09] LABS: Lactic Acid 1.2 mmol/L (0.5-2.2)
[2019-02-09] MEDS ORDERED: Acetaminophen 325 MG TAB PO PRN (16:09)
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
[2019-02-09 17:25] LABS: Troponin I Less than 0.010 ng/mL (< 0.028)
[2019-02-09] MEDS: Nicotine 21 MG PATCH TD SCH (21:16)
--- NOTE | 2019-02-09 23:08 | ULT ---
Bilateral lower extremity venous Doppler ultrasound: 02/09/2019 COMPARISON: None HISTORY: Swelling, edema, assess for DVT TECHNIQUE: Multiplanar grayscale sonographic imaging venous structures bilateral lower extremities ob tained with color flow and spectral analysis FINDINGS: Bilateral common femoral veins, greater saphenous veins, profunda femoral veins, femoral ve ins, popliteal veins, and posterior tibial veins appear patent. There is normal blood flow augmentation and compression within the deep venous system bilaterally. No evidence for DVT. Prominen t edema is noted within bilateral lower extremities. IMPRESSION: No evidence for deep venous thrombosis of either lower extremity.
--- NOTE | 2019-02-10 01:09 | CON ---
DATE OF CONSULTATION: 02/09/2019 I am seeing Mr. 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 His problems are from, 1. Paroxysmal atrial flutter with rapid ventricular rates, possibly typical isthmus dependent in morphology. a. Spontaneous conversion back to sinus rhythm noted in the ER. 2. History of preserved LV systolic function by echo and no significant valvular heart disease. 3. Morbid obesity. 4. Chronic lower extremity lymphedema. ALLERGIES: NONE NOTED. MEDICATIONS: At home included ipratropium, aspirin, nicotine patch, furosemide , and Lovenox. SUBJECTIVE: Mr. Morgan is here with progressive dyspnea over last week. It is much worse with ambulation. Denies PND or orthopnea, but does wake up at night being feeling somewhat short of breath. Uses 2 L oxygen at home. He has occasional cough with mild productive atypical chest pains also noted. He does not pass out. Denies palpitations or sensation of rapid heartbeats. No fever, chills, cough. He has chronic lower extremity edema which is massive. REVIEW OF SYSTEMS: Rest of 12-point system otherwise unremarkable. PAST MEDICAL HISTORY: As above. He has history of obesity and hypoventilation syndrome, chronic bilateral lymphedema. SOCIAL HISTORY: The patient smokes one pack of cigarettes a day. Denies drug use. Drinks two alcoholic drinks a day. FAMILY HISTORY: Not contributory, but significant for hypertension and coronary artery disease. OBJECTIVE: VITAL SIGNS: Blood pressure is 146/68, heart rate 96, respirations 20. The patient is afebrile. GENERAL: Alert and oriented, morbidly obese man, in no apparent distress. NECK: Supple. Jugular veins not distended. CHEST: Coarse without crackles. HEART: Sounds are regular to rate and rhythm. No murmur or gallop is heard. Distant heart sounds are noted. PMI is nonpalpable. ABDOMEN: Benign. Bowel sounds positive. Hepatosplenomegaly is not able to palpate. LOWER EXTREMITIES: Bilaterally, has extreme swelling, chronic venous stasis, and lymphedema is present. Stasis dermatitis also noted. ASSESSMENT AND PLAN: Mr. Morgan is a pleasant 48-year-old man with prior history of atrial flutter, which is newly found, appears to be typical isthmus dependent based on EKG morphology. He spontaneously converted back to sinus rhythm. The exact duration of the flutter is unclear, but he has had symptoms for about a week. The atrial flutter with rapid rates could contribute to his exertional dyspnea. I discussed the mechanism of atrial flutter and the potential treatment options. We discussed option of medical suppression, but also discussed the benefit of atrial flutter ablation. This may be a consideration for him, although due to his morbid obesity, venous access might be challenging. For now, he is undecided for which treatment options to take. I will keep him n.p.o. for tomorrow for potential EP study ablation. Hold Lovenox tomorrow. 2D echo and venous Doppler will be requested. Addendum. Pt jackson proved to be in excess of the cathlab table's weight limit. Continuing medical therapy. Job ID: [id number] [facility]
[2019-02-10] MEDS: Furosemide 40 MG/4 ML VIAL SLOW IVP SCH ×2 (06:02→16:00)
[2019-02-10 06:43] LABS: #Basophils 0.1 thou/uL (0.0-0.2); #Eosinphils 0.1 thou/uL (0.0-0.7); #Lymphocytes 2.8 thou/uL (1.20-3.40); #Monocytes 0.8 thou/uL (0.11-0.59); #Neutrophils 5.6 thou/uL (1.40-6.50); %Basophils 0.8 % (0.0-1.0); %Eosinophils 1.1 % (0.0-10.0); %Lymphocytes 29.7 % (21.0-51.0); %Monocytes 8.3 % (0.0-10.0); %Neutrophils 60.1 % (42.0-75.0); Hemoglobin 14.5 g/dL (14.0-18.0); Mean Corpuscular HGB CONC 32.5 g/dL (32.0-36.0); Mean Corpuscular Hemoglobin 33.4 pg (27.0-31.0); Mean Platelet Volume 8.5 fL (7.4-10.4); Platelet Count 222 thou/uL (130-400); RBC Distribution Width 14.2 % (11.5-14.5); Red Blood Cell (RBC) Count 4.33 mill/uL (4.70-6.10); White Blood Cell (WBC) Count 9.3 thou/uL (4.8-10.8)
[2019-02-10 06:54] LABS: Anion Gap 10 mmol/L (10-20); BUN (Urea Nitrogen) 4 mg/dL (8.9-20.6); Calc. Creatinine Clearance 454 mL/min (70-130); Calcium 8.8 mg/dL (7.8-10.44); Carbon Dioxide 36 mmol/L (22-29); Chloride 95 mmol/L (98-107); Estimated GFR-MDRD Greater than 90; Glucose 96 mg/dL (70-105); Potassium 3.6 mmol/L (3.5-5.1); Sodium 137 mmol/L (136-145)
--- NOTE | 2019-02-10 13:49 | PDOC.PN ---
- Subjective Encounter Start Date: 02/10/19 Encounter Start Time: 13:40 Subjective: f/u for A-flutter with consideration of ablation. Tele with SR currently. -: Some SOB with ambulation. Appetite ok. Voiding regularly. - Objective MAR Reviewed: Yes Vital Signs & Weight: Vital Signs (12 hours) Temp Pulse Resp BP Pulse Ox 02/10/19 12:43 98.4 F 96 18 118/59 L 95 02/10/19 09:25 97.9 F 90 18 128/60 95 02/10/19 03:38 98.1 F 101 H 15 132/65 93 L Weight Weight 487 lb 14.4 oz I&O: 02/09/19 02/10/19 02/11/19 06:59 06:59 06:59 Intake Total 240 Balance 240 Result Diagrams: 02/10/19 06:20 02/10/19 06:19 Additional Labs: Microbiology 02/09/19 11:16 Venous blood - Right Arm Blood Culture - Preliminary Specimen has been received and culture in progress. No Growth to date. 02/09/19 11:08 Venous blood - Left Arm Blood Culture - Preliminary Specimen has been received and culture in progress. No Growth to date. Laboratory Tests 02/09/19 02/09/19 10:39 14:42 Lactic Acid 3.1 H 1.2 Radiology Reviewed by me: Yes (Echo - EF 55-60%, mild LAE) EKG Reviewed by me: Yes (Tele - SR) Phys Exam - Physical Examination Constitutional: NAD HEENT: PERRLA, sclera anicteric, oral pharynx no lesions Neck: no nodes, no JVD, supple, full ROM Respiratory: no wheezing, no rales, no rhonchi, clear to auscultation bilateral S1, S2 Cardiovascular: RRR, no significant murmur, no rub, gallop Gastrointestinal: soft, non-tender, no distention, positive bowel sounds Musculoskeletal: pulses present, edema present Neurological: non-focal, normal sensation, moves all 4 limbs Psychiatric: A&O x 3 Skin: normal turgor, cap refill <2 seconds Dx/Plan (1) Atrial flutter with rapid ventricular response Code(s): I48.92 - UNSPECIFIED ATRIAL FLUTTER Status: Acute Comment: Spontaneous conversion to SR, start Coreg 6.25mg BID, ASA 81mg daily, outpt follow up with Cardiology (2) Dyspnea Code(s): R06.00 - DYSPNEA, UNSPECIFIED Status: Chronic Comment: Likely multifactorial given morbid obesity, tobacco abuse and #1, stable currently (3) Lymphedema of both lower extremities Code(s): I89.0 - LYMPHEDEMA, NOT ELSEWHERE CLASSIFIED Status: Chronic Comment: chronic condition (4) Morbid obesity Code(s): E66.01 - MORBID (SEVERE) OBESITY DUE TO EXCESS CALORIES Status: Chronic Comment: Weight loss resources (5) Tobacco abuse Code(s): Z72.0 - TOBACCO USE Status: Chronic Comment: Tobacco cessation resources - Plan plan discussed w/ family, protective services social worker, out of bed/ambulate Stable currently -: Start Coreg 6.25mg BID -: Start ASA 81mg daily -: Continue Lasix IV another 24h -: Likely home in 24h * .
[2019-02-10 13:50] VITALS: BMI 74.2
[2019-02-10] MEDS ORDERED: Aspirin 81 mg Enteric Coated Tablet PO SCH (14:45)
[2019-02-10] MEDS ORDERED: Carvedilol 6.25 MG TAB PO SCH (15:00)
[2019-02-10] MEDS: Nicotine 21 MG PATCH TD SCH (16:01)
--- NOTE | 2019-02-10 16:07 | PDOC.CTH ---
Cardiology Progress Note - Subjective Ep follow up note 02/10/19 Abhinav feeling better. Continues withpout palpitations. - Objective Vital Signs Temp Pulse Resp BP BP Pulse Ox 02/10/19 16:02 105/54 L 02/10/19 12:43 98.4 F 96 18 118/59 L 95 02/10/19 09:25 97.9 F 90 18 128/60 95 Admit Weight 480 lb 8 oz Weight 487 lb 14.4 oz 02/09/19 02/10/19 02/11/19 06:59 06:59 06:59 Intake Total 240 Balance 240 - Physical Examination General/Neuro: alert & oriented x3, NAD Neck: no JVD present Lungs: CTA Heart: RRR Abdomen: no HSM, soft - Telemetry Telemetry Rhythm: SR - Labs Result Diagrams: 02/10/19 06:20 02/10/19 06:19 Troponin/CKMB Troponin I Less than 0.010 ng/mL (< 0.028) 02/09/19 16:38 - Assessment/Plan 1. Paroxysmal typical atrial flutter. Spontaneously resolved. Now in SR. -Considered ablation, but pt is too heavy for cathlb table. Advise medical therapy, possibly BB vs diltiazem. -CHADVASC SCORE 0. For now recommend ASA only. 2. Lymphodema.- Diurise as per primary team. 3. Morbid obesity- Weight loss recommended. 4. COPD/Smoking. Cessation. Will follow. If weight drastically reduced with diuresis <450lb, may reconsider ablation.
[2019-02-10] MEDS: Enoxaparin Sodium 40 MG/0.4 ML SYRINGE SC SCH (17:33)
[2019-02-11] MEDS: Furosemide 40 MG/4 ML VIAL SLOW IVP SCH ×2 (05:49→18:44)
[2019-02-11] MEDS ORDERED: Aspirin 81 mg Enteric Coated Tablet PO SCH (09:00)
[2019-02-11] MEDS: Carvedilol 6.25 MG TAB PO SCH ×2 (09:28→18:47)
[2019-02-11] MEDS: Enoxaparin Sodium 40 MG/0.4 ML SYRINGE SC SCH (09:28)
--- NOTE | 2019-02-11 12:53 | PDOC.CTH ---
Cardiology Progress Note - Subjective Ep follow up note 02/11/19 Abhinav feeling better. Continues withpout palpitations. - Objective Vital Signs Temp Pulse Resp BP BP Pulse Ox 02/11/19 09:28 108/64 02/11/19 08:10 94 L 02/11/19 08:00 98.9 F 88 18 108/64 94 L 02/11/19 04:50 97.5 F L 79 16 107/58 L 95 Admit Weight 480 lb 8 oz Weight 478 lb 9.6 oz 02/10/19 02/11/19 02/12/19 06:59 06:59 06:59 Intake Total 240 550 Output Total 3450 Balance 240 -2900 - Physical Examination General/Neuro: alert & oriented x3 Neck: no JVD present Lungs: CTA Heart: RRR Abdomen: no HSM - Telemetry Telemetry Rhythm: SR - Labs Result Diagrams: 02/10/19 06:20 02/10/19 06:19 Troponin/CKMB Troponin I Less than 0.010 ng/mL (< 0.028) 02/09/19 16:38 - Assessment/Plan 1. Paroxysmal typical atrial flutter. Spontaneously resolved. Now in SR. -Considered ablation, but pt is too heavy for cathlb table. Advise medical therapy, possibly BB vs diltiazem. -CHADVASC SCORE 0. For now recommend ASA only. 2. Lymphodema.- Diurise as per primary team. 3. Morbid obesity- Weight loss recommended. 4. COPD/Smoking. Cessation. Would sign off. If weight drastically reduced with diuresis <450lb, may reconsider ablation as outpt. Happy to see him back in office if needed in 6 weeks. Please call if further questions.
--- NOTE | 2019-02-11 18:05 | DIS ---
DATE OF ADMISSION: 02/09/2019 DATE OF DISCHARGE: 02/11/2019 DISCHARGE DIAGNOSES: 1. Paroxysmal atrial flutter with rapid ventricular response with spontaneous conversion to sinus mechanism. 2. Dyspnea, multifactorial including tobacco abuse. 3. Chronic lymphedema, bilateral lower extremities. 4. Morbid obesity. 5. Tobacco abuse. CONSULTATIONS: Star Francisco MD, with Electrophysiology Service. PERTINENT LAB AND X-RAY FINDINGS: Basic metabolic profile within normal limits. Lactic acid level ranged between 1.2 to 3.1. Troponin I negative x3. BNP 54. CBC within normal limits. Blood cultures x2 dated 02/09/2019, showed no growth to date. Portable chest x-ray dated 02/09/2019, showed cardiomegaly with pulmonary vascular prominence. 2D transthoracic echocardiogram dated 02/10/2019, showed ejection fraction of 55% to 60%. Technically suboptimal exam due to patient's body habitus. Mild left atrial enlargement. Bilateral lower extremity venous Doppler study dated 02/09/2019, showed no evidence for DVT. HOSPITAL COURSE: The patient was initially admitted to the telemetry unit after presenting with increased shortness of breath in the context of ongoing tobacco use and morbid obesity. The patient was initially evaluated in the emergency room with telemetry monitoring showing atrial flutter with rapid ventricular response with spontaneous conversion to sinus mechanism before transfer to the telemetry unit. The patient was initiated on Coreg 6.25 mg b.i.d. and aspirin 81 mg daily. The patient was evaluated by Electrophysiology Service with recommendations for medical management as the patient was morbidly obese and too large to undergo cardiac evaluation and ablation due to the limits of technical mechanism to perform the procedure. The patient overall remained clinically stable, receiving IV Lasix during the hospital course. The patient symptomatically improved and was counseled regarding the need for tobacco cessation. Current telemetry monitoring shows sinus mechanism without recurrence of atrial flutter or fibrillation. The patient may be deemed an appropriate candidate for ongoing cardiac evaluation and subsequent ablation in the future if patient is able to decrease his overall weight to less than 450 pounds. I examined the patient at the time of discharge and discussed followup instructions. The patient verbalized understanding and agreement ready for discharge on 02/11/2019. DISCHARGE MEDICATIONS: 1. Coreg 6.25 mg p.o. b.i.d. 2. Lasix 40 mg p.o. b.i.d. x3 days followed by 40 mg p.o. daily. 3. Enteric-coated aspirin 81 mg p.o. daily. FOLLOWUP: The patient may follow up with Dr. Tee Villalobos after discharge. CONDITION ON DISCHARGE: Fair. ACTIVITY: Ad-audrey. DIET: Heart healthy. CODE STATUS: Full. DISPOSITION: To home, 02/11/2019. TIME SPENT: Total time preparing and coordinating discharge, 32 minutes. Job ID: [id number]
[2019-02-11 18:47] VITALS: BP 127/60
[2019-02-11] MEDS: Nicotine 21 MG PATCH TD SCH (19:28)
[2019-02-11 23:03] VITALS: TEMP 97.9
== END 2019-02-11 20:41 | disposition home or self-care (01) | DRG 309 ==
LOC: ERS 10:11 → ERHOLD 12:00 → 2NO 19:22
PROVIDERS: ADMIT Internal Medicine; ATTEND Internal Medicine
DX: I48.3 Typical atrial flutter (principal); Z68.45 Body mass index [BMI] 70 or greater, adult; R06.00 Dyspnea, unspecified; I89.0 Lymphedema, not elsewhere classified; E66.01 Morbid (severe) obesity due to excess calories; J44.9 Chronic obstructive pulmonary disease, unspecified; E78.5 Hyperlipidemia, unspecified; F17.210 Nicotine dependence, cigarettes, uncomplicated; Z71.6 Tobacco abuse counseling; Z90.49 Acquired absence of other specified parts of digestive tract; Z90.89 Acquired absence of other organs
CPT/HCPCS: 36415; 71045; 80048; 80053; 82550; 83605; 83880; 84484; 85025; 87040; 90471; 90732; 93005; 93306; 93798; 93970; 94640; 99406; G0009; J1650; J1940; J7620

== ENCOUNTER 2019-03-22 05:55 | Inpatient (IN) | payer MEDICAID, SELFPAY ==
[2019-03-22 06:44] LABS: #Eosinphils 0.1 thou/uL (0.0-0.7); #Lymphocytes 2.2 thou/uL (1.20-3.40); #Monocytes 0.7 thou/uL (0.11-0.59); #Neutrophils 6.4 thou/uL (1.40-6.50); %Basophils 0.3 % (0.0-1.0); %Eosinophils 0.9 % (0.0-10.0); %Lymphocytes 23.3 % (21.0-51.0); %Monocytes 7.8 % (0.0-10.0); %Neutrophils 67.8 % (42.0-75.0); Mean Corpuscular HGB CONC 32.6 g/dL (32.0-36.0); Mean Corpuscular Hemoglobin 33.1 pg (27.0-31.0); Mean Platelet Volume 7.9 fL (7.4-10.4); Platelet Count 214 thou/uL (130-400); Red Blood Cell (RBC) Count 4.52 mill/uL (4.70-6.10); White Blood Cell (WBC) Count 9.4 thou/uL (4.8-10.8)
[2019-03-22 07:06] LABS: ALT (SGPT) 23 U/L (8-55); AST (SGOT) 31 U/L (5-34); Albumin 3.1 g/dL (3.5-5.0); Alkaline Phosphatase 114 U/L (40-150); Anion Gap 13 mmol/L (10-20); BUN (Urea Nitrogen) 8 mg/dL (8.9-20.6); Bilirubin, Total 2.7 mg/dL (0.2-1.2); Calc. Creatinine Clearance 0 mL/min (70-130); Calcium 8.7 mg/dL (7.8-10.44); Carbon Dioxide 34 mmol/L (22-29); Chloride 77 mmol/L (98-107); Estimated GFR-MDRD Greater than 90; Glucose 91 mg/dL (70-105); Potassium 3.4 mmol/L (3.5-5.1); Protein, Total 7.1 g/dL (6.0-8.3); Sodium 121 mmol/L (136-145)
[2019-03-22] MEDS ORDERED: Piperacillin/Tazobactam 4.5 GM VIAL ONE (07:23)
[2019-03-22] MEDS ORDERED: Furosemide 40 MG/4 ML VIAL ONE (07:23)
--- NOTE | 2019-03-22 07:37 | RAD ---
FRONTAL VIEW CHEST: COMPARISON: 02/09/2019. CLINICAL INDICATION: Difficulty breathing with productive cough. FINDINGS: There is diffuse abnormal alveolar and interstitial opacity throughout the lungs. The cardiomediasti nal silhouette and pulmonary vasculature are enlarged. There is slight blunting of the left lateral costophrenic sulcus. IMPRESSION: 1. Diffuse alveolar and interstitial opacities of the lungs which may be on the basis of edema and/o r atypical pneumonia. Enlarged cardiac silhouette and pulmonary vasculature. 2. Probable mild left pleural effusion. 3. Recommend continued imaging followup. POS: [facility]
[2019-03-22] MEDS ORDERED: Bisacodyl 5 MG TAB PO PRN (09:33)
[2019-03-22] MEDS ORDERED: Zolpidem Tartrate 5 MG TAB PO PRN (09:33)
[2019-03-22] MEDS ORDERED: Ondansetron PF 4 MG/2 ML Vial IVP PRN (09:33)
[2019-03-22] MEDS ORDERED: Acetaminophen 325 MG TAB PO PRN (09:33)
[2019-03-22] MEDS ORDERED: Guaifenesin DM 100-10/5 ML UDCUP PO PRN (09:33)
[2019-03-22 09:47] VITALS: BMI 74.7
[2019-03-22 11:02] LABS: Troponin I 0.022 ng/mL (< 0.028)
[2019-03-22] MEDS ORDERED: Dextrose 50% Abboject 50 ML SYRINGE SLOW IVP PRN (12:59)
[2019-03-22] MEDS ORDERED: HumaLOG 300 UNITS/3 ML VIAL SC PRN ×2 (12:59)
[2019-03-22] MEDS ORDERED: Dextrose 5% in Water 1,000 ML IV PRN (12:59)
--- NOTE | 2019-03-22 12:59 | PDOC.EVN ---
Event Note - Event Note Event Note: H&P #[id number]
[2019-03-22 13:53] LABS: Troponin I 0.023 ng/mL (< 0.028)
--- NOTE | 2019-03-22 13:55 | HP ---
CHIEF COMPLAINT: Shortness of breath. HISTORY OF PRESENT ILLNESS: This is a 48-year-old male, who is recently admitted here, presenting to the hospital complaining of shortness of breath and chest pain. The patient states that he has not had any opportunity to make any significant dietary changes, continues to smoke, and also notes that his lower legs have been swelling worse than prior. The patient was admitted to the Internal Medicine team from the ER, having given antibiotics as well as some diuretics. The patient at point in time during evaluation states that he is hurting all over, feels a bit short of breath as well. Otherwise, no complaints or symptoms. The patient is seen and examined in the hospital bed. All questions answered. at bedside. SOCIAL HISTORY: The patient is a smoker of 3 to 4 packs a day for the past 20 to 25 years, as well as a social drinker. FAMILY HISTORY: Positive for hypertension, diabetes. PAST MEDICAL HISTORY: Positive for sleep apnea, morbid obesity, hypertension, diabetes mellitus type 2, congestive heart failure, COPD, lymphedema, edema, as well as hyperlipidemia and metabolic syndrome. REVIEW OF SYSTEMS: All systems reviewed, pertinent positive in HPI, otherwise negative. HOME MEDICATIONS: See MAR. ALLERGIES: NO KNOWN DRUG ALLERGIES. PHYSICAL EXAMINATION: VITAL SIGNS: Blood pressure 130/64, O2 saturations 93% on 5 L high-flow nasal cannula, temperature 97.8, pulse of 83, respiratory rate of 20. GENERAL: The patient is morbidly obese with both legs flowing outside of the bed, appears in mild discomfort and significantly older than his stated age. HEENT: Pupils are equal, round, and reactive to light and accommodation. Extraocular muscles intact. Oral cavity, moist and pink. NECK: Large, nontender. PULMONARY: Mild wheezing noted. Distant lung sounds. No rales or rhonchi. No respiratory distress. CARDIOVASCULAR: Regular rate and rhythm. S1 and S2. Faint murmur appreciated. Distant heart sounds as well. ABDOMEN: Rotund. Positive bowel sounds. Soft, nontender. EXTREMITIES: 2+ peripheral pulses on upper extremities. Pulses nonpalpable for the dorsalis pedis or pedal pulses in bilateral lower extremities as well as popliteal and inguinal pulses are palpated through significant difficulty. The patient has bilateral lower extremity hypertrophic skin ranging from his feet all the way up to his upper thighs as well as significant lymphedema. LABORATORY DATA: Reviewed. IMAGING DATA: Reviewed. ASSESSMENT: 1. Congestive heart failure. 2. Hyponatremia, likely secondary to volume overload and congestive heart failure. 3. Hyperlipidemia. 4. Diabetes mellitus type 2. 5. Smoking addiction and tobacco dependence. 6. Morbid obesity with a BMI of 75. 7. Lymphedema. 8. Likely chronic kidney disease stage 3. Creatinine at 0.73. However, the patient appears to have probably close to 60 or 70 pounds of free water on him, so creatinine may be slightly higher. He does exhibit some uremic symptoms as well regarding food taste changes as well as sleep pattern reversals. PLAN: At this point in time, we will start the patient on Lasix 40 IV q.12h. Repeat BMP and CBC in the morning. Consult with Cardiology and Nephrology as well. The patient had an echocardiogram done approximately on 02/10 of this month, which showed suboptimal study. Ejection fraction was intact, however, some mild diastolic dysfunction likely present. Trace mitral regurgitation also noted. The patient's overall prognosis is significantly poor. The patient understands this. He states that he is unable to quit smoking. He also understands that his physical condition is significantly poor. Wishes to be a DNR at this point in time after discussion, but is interested in treatments for now. He states that he will consider hospice if he gets readmitted next time. For now, we will pursue with diuretics. We will await Cardio and Renal evaluation, and insulin for his diabetes. Case and plan discussed with the patient and at length, they understood and agreed with this plan. Job ID: [id number]
[2019-03-22] MEDS ORDERED: Furosemide 40 MG/4 ML VIAL SLOW IVP SCH (14:00)
[2019-03-22] MEDS: Carvedilol 6.25 MG TAB PO SCH (16:07)
[2019-03-22 16:20] LABS: Hemoglobin A1c 4.7 % (4.0-6.0)
--- NOTE | 2019-03-22 16:52 | CON ---
DATE OF CONSULTATION: HISTORY OF PRESENT ILLNESS: The patient is an unfortunate 48-year-old gentleman, who suffers from morbid obesity and presents with increasing dyspnea. The patient has a previous cardiac history of atrial flutter. Because of his excess weight, he has been on medical therapy. He underwent an echocardiogram last month, which revealed a normal left ventricular ejection fraction with normal PA systolic pressure. The patient presents with worsening edema and shortness of breath. PAST MEDICAL HISTORY: Significant for, 1. Hypertension. 2. Diabetes mellitus. 3. COPD. 4. Lymphedema. PAST SURGICAL HISTORY: He has had appendectomy, tonsillectomy, ankle surgery. SOCIAL HISTORY: The patient has a long history of tobacco abuse. MEDICATIONS: See nursing list. FAMILY HISTORY: Strong family history of coronary artery disease. REVIEW OF SYSTEMS: Ten-point system noticeable for worsening edema. PHYSICAL EXAMINATION: GENERAL: Morbidly obese gentleman. VITAL SIGNS: Blood pressure 130/64. NECK: Full. LUNGS: Have crackles in both lung jacques. HEART: Regular rate and rhythm. Normal S1 and S2. ABDOMEN: Markedly distended. EXTREMITIES: Showed severe bilateral edema. VASCULAR: Radial pulses 2+. LABORATORY DATA: Sodium 121, potassium 3.4, chloride 77, bicarb 34, BUN 8, and creatinine 0.73, glucose 91. Troponin 0.023. White blood cell count 9.4, hemoglobin 15.0, hematocrit 46.0, platelets are 214. IMAGING STUDIES: His EKG reveals him to have normal sinus rhythm with a nonspecific T-wave abnormality. His chest x-ray revealed cardiomegaly with bilateral edema. IMPRESSION: 1. Dyspnea, congestive heart failure, probably secondary to diastolic dysfunction. 2. Hypertension. 3. Diabetes mellitus. 4. Morbid obesity. 5. Chronic obstructive pulmonary disease. 6. Tobacco abuse. 7. Hyponatremia. PLAN: This gentleman presents with probable congestive heart failure secondary to diastolic dysfunction. With his low sodium, would recommend the patient be treated with tolvaptan. We will ask Renal to assist in the use of this medication. Would hold Lasix with his severe hyponatremia. We will follow this patient with you through his hospitalization. Please note my office. Job ID: [id number]
--- NOTE | 2019-03-22 19:26 | CON ---
DATE OF CONSULTATION: 03/22/2019 CONSULTING PHYSICIAN: Joseph Fry DO REASON FOR CONSULTATION: Hyponatremia. REASON FOR ADMISSION: Shortness of breath. HISTORY OF PRESENT ILLNESS: A 48-year-old male with history of sleep apnea, morbid obesity, hypertension, type 2 diabetes, COPD, and CHF, came to the hospital with shortness of breath and is being evaluated and was found to have hyponatremia with oliguria. Nephrology was consulted. The patient was also having shortness of breath. While examining him, no chest pain or palpitation reported to me. He continues to smoke. PAST MEDICAL HISTORY: Positive for sleep apnea, morbid obesity, hypertension, type 2 diabetes, CHF, COPD, lymphedema, hyperlipidemia, and metabolic syndrome. PAST SURGICAL HISTORY: Appendectomy, tonsillectomy, and left ankle surgery. HOME MEDICATIONS: 1. Aspirin. 2. Carvedilol. 3. Furosemide. ALLERGIES: NO KNOWN DRUG ALLERGIES. SOCIAL HISTORY: History of smoking present. No alcohol use reported. No illicit drug abuse. FAMILY HISTORY: Positive for hypertension and diabetes. REVIEW OF SYSTEMS: CONSTITUTIONAL: Negative for weight loss or gain, ability to conduct usual activities. SKIN: Negative for rash, itching. EYES: Negative for double vision, pain. ENT/MOUTH: Negative for nose bleeding, neck stiffness, pain, tenderness. CARDIOVASCULAR: Negative for palpitations, dyspnea on exertion, orthopnea. RESPIRATORY: Negative for shortness of breath, wheezing, cough, hemoptysis, fever or night sweats. GASTROINTESTINAL: Negative for poor appetite, abdominal pain, heartburn, nausea, vomiting, constipation, or diarrhea. GENITOURINARY: Negative for urgency, frequency, dysuria, nocturia. MUSCULOSKELETAL: Negative for pain, swelling. NEUROLOGIC/PSYCHIATRIC: Negative for anxiety, depression. ALLERGY/IMMUNOLOGIC: Negative for skin rash, bleeding tendency. PHYSICAL EXAMINATION: GENERAL: This is a morbidly obese white male, in no apparent distress. VITAL SIGNS: Temperature 97.8, pulse 85, respiratory rate 20, and blood pressure 130/64. HEENT: Atraumatic and normocephalic. NECK: Supple. CVS: S1 and S2 heard. RESPIRATORY: Crackles present. GI: Abdomen is obese. MUSCULOSKELETAL: 1+ edema. DERMATOLOGIC: No skin rash. NEUROLOGIC: Alert and awake. Moving all the extremities. PSYCHIATRIC: Mood and affect normal. LABORATORY DATA: Hemoglobin is 15.0. Potassium 3.4, sodium is 121, bicarb is 34, BUN is 8, and creatinine is 0.7. ASSESSMENT AND PLAN: 1. Hyponatremia, most likely from fluid overload. Agree with the Lasix and limiting fluid intake. 2. Hypokalemia, replaced. 3. Hypochloremia. 4. Metabolic alkalosis based on BMP. 5. Hypoalbuminemia. 6. History of hypertension. 7. Morbid obesity and metabolic syndrome. Long-term prognosis is poor. The patient was counseled and continued on Lasix. Limit fluid intake. We will follow sodium closely. Job ID: [id number]
[2019-03-22] MEDS ORDERED: Insulin Glargine 10 UNITS in Pre-Filled Syringe SC SCH (21:00)
[2019-03-23 04:07] LABS: #Basophils 0.1 thou/uL (0.0-0.2); #Eosinphils 0.1 thou/uL (0.0-0.7); #Lymphocytes 2.5 thou/uL (1.20-3.40); #Monocytes 0.8 thou/uL (0.11-0.59); #Neutrophils 6.1 thou/uL (1.40-6.50); %Basophils 0.6 % (0.0-1.0); %Eosinophils 1.2 % (0.0-10.0); %Lymphocytes 26.3 % (21.0-51.0); %Monocytes 7.9 % (0.0-10.0); Mean Corpuscular HGB CONC 32.4 g/dL (32.0-36.0); Mean Corpuscular Hemoglobin 33.2 pg (27.0-31.0); Mean Platelet Volume 7.7 fL (7.4-10.4); Platelet Count 225 thou/uL (130-400); RBC Distribution Width 16.8 % (11.5-14.5); Red Blood Cell (RBC) Count 4.22 mill/uL (4.70-6.10); White Blood Cell (WBC) Count 9.5 thou/uL (4.8-10.8)
[2019-03-23 04:20] LABS: BUN (Urea Nitrogen) 8 mg/dL (8.9-20.6); Calc. Creatinine Clearance 389 mL/min (70-130); Calcium 8.7 mg/dL (7.8-10.44); Estimated GFR-MDRD Greater than 90; Glucose 111 mg/dL (70-105)
[2019-03-23 04:26] LABS: Troponin I 0.019 ng/mL (< 0.028)
[2019-03-23 04:29] LABS: Anion Gap 12 mmol/L (10-20); Carbon Dioxide 40 mmol/L (22-29); Chloride 78 mmol/L (98-107); Potassium 3.3 mmol/L (3.5-5.1); Sodium 127 mmol/L (136-145)
[2019-03-23] MEDS: Aspirin 81 mg Enteric Coated Tablet PO SCH (09:04)
[2019-03-23] MEDS: Enoxaparin Sodium 40 MG/0.4 ML SYRINGE SC SCH (09:04)
[2019-03-23] MEDS: Carvedilol 6.25 MG TAB PO SCH ×2 (09:04→17:35)
[2019-03-23 10:21] LABS: BUN (Urea Nitrogen) 7 mg/dL (8.9-20.6); Calc. Creatinine Clearance 389 mL/min (70-130); Calcium 8.8 mg/dL (7.8-10.44); Estimated GFR-MDRD Greater than 90; Glucose 104 mg/dL (70-105)
[2019-03-23 10:31] LABS: Anion Gap 10 mmol/L (10-20); Chloride 77 mmol/L (98-107); Potassium 3.4 mmol/L (3.5-5.1); Sodium 127 mmol/L (136-145)
[2019-03-23 10:44] LABS: Carbon Dioxide 43 mmol/L (22-29)
--- NOTE | 2019-03-23 10:55 | PDOC.PN ---
- Subjective Encounter Start Date: 03/23/19 Encounter Start Time: 08:30 -: old records requested/rev pt does not feel good, no fever, no cough, weak Patient seen and examined. No new complaints. No overnight events - Objective Resuscitation Status - Order Detail: 03/22/19 18:32 Resuscitation Status Routine Resuscitation Status: FULL: Full Resuscitation Discussed with: ALVARO Robles Spoke with patient Additional comments: Physician updates at 1834 MAR Reviewed: Yes Vital Signs & Weight: Vital Signs (12 hours) Temp Pulse Resp BP BP Pulse Ox 03/23/19 09:04 121/56 L 03/23/19 08:00 98.0 F 60 18 121/56 L 90 L 03/23/19 04:00 97.6 F 91 19 129/63 90 L Weight Weight 491 lb 3.2 oz I&O: 03/22/19 03/23/19 03/24/19 06:59 06:59 06:59 Intake Total 520 340 Output Total 900 Balance -380 340 Result Diagrams: 03/23/19 03:53 03/23/19 09:39 Additional Labs: Accuchecks 03/23/19 03/23/19 03/22/19 10:38 06:06 22:47 POC Glucose 125 H 117 H 112 H Radiology Reviewed by me: Yes EKG Reviewed by me: Yes (nsr) Phys Exam - Physical Examination Constitutional: NAD HEENT: PERRLA, moist MMs, sclera anicteric Neck: no JVD, supple Respiratory: no wheezing, no rales, no rhonchi morbid obesity limiting exam Cardiovascular: RRR, no significant murmur, no rub Gastrointestinal: soft, non-tender, no distention, positive bowel sounds morbid obesity Musculoskeletal: edema present chronic lymphoedema Neurological: non-focal, normal sensation Lymphatic: no nodes Psychiatric: normal affect, A&O x 3 Skin: no rash, normal turgor Dx/Plan (1) Abnormal blood electrolyte level Code(s): E87.8 - OTH DISORDERS OF ELECTROLYTE AND FLUID BALANCE, NEC Status: Acute (2) Acute on chronic diastolic ACC/AHA stage C congestive heart failure Code(s): I50.33 - ACUTE ON CHRONIC DIASTOLIC (CONGESTIVE) HEART FAILURE Status : Acute (3) Acute on chronic respiratory failure with hypoxia and hypercapnia Code(s): J96.21 - ACUTE AND CHRONIC RESPIRATORY FAILURE WITH HYPOXIA; J96.22 - ACUTE AND CHRONIC RESPIRATORY FAILURE WITH HYPERCAPNIA Status: Acute (4) Alcohol abuse Code(s): F10.10 - ALCOHOL ABUSE, UNCOMPLICATED Status: Chronic (5) HTN (hypertension) Code(s): I10 - ESSENTIAL (PRIMARY) HYPERTENSION Status: Chronic Qualifiers: (6) Lymphedema of both lower extremities Code(s): I89.0 - LYMPHEDEMA, NOT ELSEWHERE CLASSIFIED Status: Chronic Comment: chronic condition (7) Macrocytosis Code(s): D75.89 - OTHER SPECIFIED DISEASES OF BLOOD AND BLOOD-FORMING ORGANS Status: Chronic (8) Morbid obesity with BMI of 70 and over, adult Code(s): E66.01 - MORBID (SEVERE) OBESITY DUE TO EXCESS CALORIES; Z68.45 - BODY MASS INDEX (BMI) 70 OR GREATER, ADULT Status: Chronic (9) Pickwickian syndrome Code(s): E66.2 - MORBID (SEVERE) OBESITY WITH ALVEOLAR HYPOVENTILATION Status : Chronic (10) Tobacco abuse Code(s): Z72.0 - TOBACCO USE Status: Chronic Comment: Tobacco cessation resources - Plan cont current plan of care, continue antibiotics * today will correct electrolyte abnormality * nephrology following * continue levaquin * he will need sleep study after discharge * medication reviewed as below * symptomatic treatment. * repeat labs tomorrow Review of Systems - Review of Systems Constitutional: weakness. negative: fever, chills, sweats, malaise, other ENT: negative: Ear Pain, Ear Discharge, Nose Pain, Nose Discharge, Nose Congestion, Mouth Pain, Mouth Swelling, Throat Pain, Throat Swelling, Other Respiratory: negative: Cough, Dry, Shortness of Breath, Hemoptysis, SOB with Excertion, Pleuritic Pain, Sputum, Wheezing Cardiovascular: negative: chest pain, palpitations, orthopnea, paroxysmal nocturnal dyspnea, edema, light headedness, other Gastrointestinal: negative: Nausea, Vomiting, Abdominal Pain, Diarrhea, Constipation, Melena, Hematochezia, Other Genitourinary: negative: Dysuria, Frequency, Incontinence, Hematuria, Retention , Other Musculoskeletal: negative: Neck Pain, Shoulder Pain, Arm Pain, Back Pain, Hand Pain, Leg Pain, Foot Pain, Other - Medications/Allergies Allergies/Adverse Reactions: Allergies Allergy/AdvReac Type Severity Reaction Status Date / Time No Known Drug Allergies Allergy Verified 03/22/19 09:37 Medications: Current Medications Acetaminophen (Tylenol) 650 mg PO Q4H PRN PRN Reason: Headache/Fever/Mild Pain (1-3) Aspirin (Ecotrin) 81 mg PO DAILY [facility] Last Admin: 03/23/19 09:04 Dose: 81 mg Bisacodyl (Dulcolax) 10 mg PO DAILYPRN PRN PRN Reason: Constipation Carvedilol (Coreg) 6.25 mg PO BID-[facility] Last Admin: 03/23/19 09:04 Dose: 6.25 mg Enoxaparin Sodium (Lovenox) 40 mg SC 0900 [facility] Last Admin: 03/23/19 09:04 Dose: 40 mg Guaifenesin/Dextromethorphan (Robitussin Dm) 15 ml PO Q4H PRN PRN Reason: Cough Levofloxacin 500 mg/ Device 100 mls @ 100 mls/hr IVPB 0800 [facility] Last Admin: 03/23/19 09:03 Dose: 100 mls Ondansetron HCl (Zofran) 4 mg IVP Q6H PRN PRN Reason: Nausea/Vomiting Sodium Chloride (Flush - Normal Saline) 10 ml IVF Q12HR [facility] Last Admin: 03/22/19 21:18 Dose: 10 ml Sodium Chloride (Flush - Normal Saline) 10 ml IVF PRN PRN PRN Reason: Saline Flush Zolpidem Tartrate (Ambien) 5 mg PO HSPRN PRN PRN Reason: Insomnia
[2019-03-23] MEDS ORDERED: Nystatin Powder 15 GM BOT TOP PRN (11:40)
[2019-03-23] MEDS ORDERED: Ondansetron ODT 4 MG TAB PO PRN (11:41)
[2019-03-23] MEDS ORDERED: hydrALAZINE 20 MG/ML VIAL SLOW IVP PRN (11:41)
[2019-03-23] MEDS ORDERED: Diabetic Tussin 200 MG/10 ML UDCUP PO PRN (11:41)
[2019-03-23] MEDS ORDERED: Cepastat Lozenges 1 LOZ PO PRN (11:41)
[2019-03-23] MEDS ORDERED: Calcium Carbonate 500 MG ChewTAB PO PRN (11:41)
[2019-03-23] MEDS ORDERED: Artificial Tears 18 DROP/0.9 ML EA EYE PRN (11:41)
[2019-03-23] MEDS ORDERED: Loperamide HCl 2 MG CAP PO PRN (11:41)
--- NOTE | 2019-03-23 11:43 | PRG ---
DATE OF SERVICE: 03/23/2019 SUBJECTIVE: This is a 48-year-old gentleman being seen for hyponatremia. The patient denies nausea, vomiting, or chest pain. PHYSICAL EXAMINATION: CONSTITUTIONAL: The patient is awake and alert. GENERAL APPEARANCE AND MENTAL STATUS: Fair. VITAL SIGNS: Afebrile, pulse 75, breathing 16, and blood pressure was 121/53. HEAD/NECK: Normocephalic. Atraumatic. EYES: EOMI. No deformity. EARS: Clear. No ulcers. NOSE: Intact. No lesions. MOUTH: Clear. No discharge. THROAT: Clear. No exudate. LUNGS: Clear. No crackles. CARDIAC: S1, S2. No rub. ABDOMEN: Benign. Bowel sounds positive. GENITALIA/RECTUM: Noguera absent. BACK/EXTREMITIES: Edema 0+. NEUROLOGICAL: Alert and motor intact. SKIN: LYMPHATICS: LABORATORY DATA: Labs show sodium of 127. ASSESSMENT AND PLAN: 1. Hyponatremia, improved. We would recommend fluid restriction. 2. Anemia, stable. I will order a TSH level as well as a serum osmolality and urine osmolality. 3. Hypokalemia, recommend high potassium diet. 4. Elevated bicarbonate. I would recommend getting a blood gas. Job ID: [id number]
[2019-03-23 20:43] LABS: BUN (Urea Nitrogen) 8 mg/dL (8.9-20.6); Calc. Creatinine Clearance 394 mL/min (70-130); Calcium 8.8 mg/dL (7.8-10.44); Estimated GFR-MDRD Greater than 90; Glucose 116 mg/dL (70-105)
[2019-03-23 20:44] LABS: Chloride 78 mmol/L (98-107); Potassium 3.5 mmol/L (3.5-5.1); Sodium 125 mmol/L (136-145)
[2019-03-23 20:58] LABS: Anion Gap 16 mmol/L (10-20); Carbon Dioxide 35 mmol/L (22-29)
[2019-03-24 08:14] LABS: Creatinine, Urine 141.91 mg/dL (63-166); Sodium, Urine Less than 20 mmol/L (Not Available)
[2019-03-24 09:12] LABS: BUN (Urea Nitrogen) 7 mg/dL (8.9-20.6); Calc. Creatinine Clearance 417 mL/min (70-130); Estimated GFR-MDRD Greater than 90; Glucose 110 mg/dL (70-105); Magnesium 1.2 mg/dL (1.6-2.6); Phosphorus 3.3 mg/dL (2.3-4.7)
[2019-03-24 09:21] LABS: Anion Gap 15 mmol/L (10-20); Carbon Dioxide 38 mmol/L (22-29); Chloride 77 mmol/L (98-107); Potassium 3.6 mmol/L (3.5-5.1); Sodium 126 mmol/L (136-145)
[2019-03-24] MEDS: Aspirin 81 mg Enteric Coated Tablet PO SCH (09:34)
[2019-03-24] MEDS: Cyanocobalamin (Vitamin B-12) 1,000 MCG TAB PO SCH (09:34)
[2019-03-24] MEDS: AcetaZOLAMIDE 250 MG TAB PO SCH ×2 (09:34→20:30)
[2019-03-24] MEDS: Carvedilol 6.25 MG TAB PO SCH ×2 (09:34→16:54)
[2019-03-24] MEDS: Enoxaparin Sodium 40 MG/0.4 ML SYRINGE SC SCH (09:35)
[2019-03-24] MEDS: Folic Acid 1 MG TAB PO SCH (09:35)
[2019-03-24] MEDS ORDERED: Magnesium Sulfate 3 GM in Sodium Chloride 0.9% 100 ML IVPB SCH (11:00)
--- NOTE | 2019-03-24 11:21 | PDOC.PN ---
- Subjective Encounter Start Date: 03/24/19 Encounter Start Time: 08:40 Patient seen and examined. No new complaints. No overnight events - Objective Resuscitation Status - Order Detail: 03/22/19 18:32 Resuscitation Status Routine Resuscitation Status: FULL: Full Resuscitation Discussed with: ALVARO Robles Spoke with patient Additional comments: Physician updates at 1834 MAR Reviewed: Yes Vital Signs & Weight: Vital Signs (12 hours) Temp Pulse Resp BP Pulse Ox 03/24/19 07:15 97.6 F 86 16 136/66 94 L 03/24/19 03:42 97.4 F L 87 20 123/68 92 L Weight Weight 491 lb 3.2 oz I&O: 03/23/19 03/24/19 03/25/19 06:59 06:59 06:59 Intake Total 520 1540 Output Total 900 1075 Balance -380 465 Result Diagrams: 03/23/19 03:53 03/24/19 08:22 Additional Labs: Accuchecks 03/24/19 03/23/19 03/23/19 05:18 20:08 16:53 POC Glucose 112 H 117 H 106 Phys Exam - Physical Examination Constitutional: NAD HEENT: PERRLA, moist MMs, sclera anicteric Neck: no JVD, supple Respiratory: no wheezing, no rales, no rhonchi Cardiovascular: RRR, no significant murmur, no rub Gastrointestinal: soft, non-tender, no distention, positive bowel sounds morbid obesity+ Musculoskeletal: pulses present chronic lymphoedema Neurological: non-focal, normal sensation Lymphatic: no nodes Psychiatric: normal affect, A&O x 3 Skin: no rash, normal turgor Dx/Plan (1) Abnormal blood electrolyte level Code(s): E87.8 - OTH DISORDERS OF ELECTROLYTE AND FLUID BALANCE, NEC Status: Acute (2) Acute on chronic diastolic ACC/AHA stage C congestive heart failure Code(s): I50.33 - ACUTE ON CHRONIC DIASTOLIC (CONGESTIVE) HEART FAILURE Status : Acute (3) Acute on chronic respiratory failure with hypoxia and hypercapnia Code(s): J96.21 - ACUTE AND CHRONIC RESPIRATORY FAILURE WITH HYPOXIA; J96.22 - ACUTE AND CHRONIC RESPIRATORY FAILURE WITH HYPERCAPNIA Status: Acute (4) Alcohol abuse Code(s): F10.10 - ALCOHOL ABUSE, UNCOMPLICATED Status: Chronic (5) HTN (hypertension) Code(s): I10 - ESSENTIAL (PRIMARY) HYPERTENSION Status: Chronic Qualifiers: (6) Lymphedema of both lower extremities Code(s): I89.0 - LYMPHEDEMA, NOT ELSEWHERE CLASSIFIED Status: Chronic Comment: chronic condition (7) Macrocytosis Code(s): D75.89 - OTHER SPECIFIED DISEASES OF BLOOD AND BLOOD-FORMING ORGANS Status: Chronic (8) Morbid obesity with BMI of 70 and over, adult Code(s): E66.01 - MORBID (SEVERE) OBESITY DUE TO EXCESS CALORIES; Z68.45 - BODY MASS INDEX (BMI) 70 OR GREATER, ADULT Status: Chronic (9) Pickwickian syndrome Code(s): E66.2 - MORBID (SEVERE) OBESITY WITH ALVEOLAR HYPOVENTILATION Status : Chronic (10) Tobacco abuse Code(s): Z72.0 - TOBACCO USE Status: Chronic Comment: Tobacco cessation resources - Plan cont current plan of care, continue antibiotics * follow on blood culture * continue IV levaquin 750 mg * medication reviewed as below * symptomatic treatment * will send hyponatremia work up * will repeat labs tomorrow. * replace magnesium for hypomagnesemia Review of Systems - Review of Systems ENT: negative: Ear Pain, Ear Discharge, Nose Pain, Nose Discharge, Nose Congestion, Mouth Pain, Mouth Swelling, Throat Pain, Throat Swelling, Other Respiratory: negative: Cough, Dry, Shortness of Breath, Hemoptysis, SOB with Excertion, Pleuritic Pain, Sputum, Wheezing Cardiovascular: negative: chest pain, palpitations, orthopnea, paroxysmal nocturnal dyspnea, edema, light headedness, other Gastrointestinal: negative: Nausea, Vomiting, Abdominal Pain, Diarrhea, Constipation, Melena, Hematochezia, Other Genitourinary: negative: Dysuria, Frequency, Incontinence, Hematuria, Retention , Other Musculoskeletal: negative: Neck Pain, Shoulder Pain, Arm Pain, Back Pain, Hand Pain, Leg Pain, Foot Pain, Other - Medications/Allergies Allergies/Adverse Reactions: Allergies Allergy/AdvReac Type Severity Reaction Status Date / Time No Known Drug Allergies Allergy Verified 03/22/19 09:37 Medications: Current Medications Acetaminophen (Tylenol) 650 mg PO Q4H PRN PRN Reason: Headache/Fever/Mild Pain (1-3) Acetazolamide (Diamox) 250 mg PO BID [facility] Last Admin: 03/24/19 09:34 Dose: 250 mg Albuterol/Ipratropium (Duoneb) 3 ml NEB [id number] PRN PRN Reason: SOB &/or Wheezing Artificial Tears (Tears Naturale) 2 drop EA EYE PRN PRN PRN Reason: Dry Eyes Aspirin (Ecotrin) 81 mg PO DAILY [facility] Last Admin: 03/24/19 09:34 Dose: 81 mg Bisacodyl (Dulcolax) 10 mg PO DAILYPRN PRN PRN Reason: Constipation Calcium Carbonate (Tums) 1,000 mg PO Q4H PRN PRN Reason: Heartburn or Indigestion Carvedilol (Coreg) 6.25 mg PO BID-[facility] Last Admin: 03/24/19 09:34 Dose: 6.25 mg Cyanocobalamin (Vitamin B-12) 1,000 mcg PO DAILY [facility] Last Admin: 03/24/19 09:34 Dose: 1,000 mcg Enoxaparin Sodium (Lovenox) 40 mg SC 0900 [facility] Last Admin: 03/24/19 09:35 Dose: 40 mg Folic Acid (Folvite) 1 mg PO DAILY [facility] Last Admin: 03/24/19 09:35 Dose: 1 mg Guaifenesin (Robitussin Sf) 200 mg PO Q4H PRN PRN Reason: Cough Guaifenesin/Dextromethorphan (Robitussin Dm) 15 ml PO Q4H PRN PRN Reason: Cough Hydralazine HCl (Apresoline) 10 mg SLOW IVP Q4H PRN PRN Reason: SBP > 180 and HR < 70 Levofloxacin 750 mg/ Device 150 mls @ 100 mls/hr IVPB 1000 [facility] Last Admin: 03/24/19 09:34 Dose: 150 mls Magnesium Sulfate 3 gm/ Sodium (Chloride) 106 mls @ 100 mls/hr IVPB NOW [facility] Stop: 03/24/19 13:00 Loperamide HCl (Imodium) 2 mg PO PRN PRN PRN Reason: Diarrhea/Loose Stools Nystatin (Mycostatin Powder) 1 gm TOP BID PRN PRN Reason: Topical Irritations Ondansetron HCl (Zofran) 4 mg IVP Q6H PRN PRN Reason: Nausea/Vomiting Ondansetron HCl (Zofran Odt) 4 mg PO Q6H PRN PRN Reason: Nausea/Vomiting Sodium Chloride (Flush - Normal Saline) 10 ml IVF Q12HR [facility] Last Admin: 03/24/19 09:48 Dose: 10 ml Sodium Chloride (Flush - Normal Saline) 10 ml IVF PRN PRN PRN Reason: Saline Flush Sodium Chloride ([place] Nasal [place] 0.65%) 0 ml EA NARE QIDPRN PRN PRN Reason: Nasal Congestion Throat Lozenges (Cepastat Lozenges) 1 ro PO Q2H PRN PRN Reason: Sore Throat Zolpidem Tartrate (Ambien) 5 mg PO HSPRN PRN PRN Reason: Insomnia
[2019-03-24] MEDS ORDERED: Magnesium Sulfate 1 GM/2 ML VIAL IM SCH (12:30)
--- NOTE | 2019-03-24 12:53 | PRG ---
DATE OF SERVICE: 03/24/2019 SUBJECTIVE: This is a 48-year-old gentleman, being seen for hyponatremia. The patient denies any nausea, vomiting, or chest pain. PHYSICAL EXAMINATION: CONSTITUTIONAL: The patient is awake and alert. VITAL SIGNS: Afebrile. Pulse 80, breathing 16, and blood pressure 127/65. GENERAL APPEARANCE AND MENTAL STATUS: Fair. HEAD/NECK: Normocephalic. Atraumatic. EYES: EOMI. No deformity. EARS: Clear. No ulcers. NOSE: Intact. No lesions. MOUTH: Clear. No discharge. THROAT: Clear. No exudate. LUNGS: Clear. No crackles. CARDIAC: S1, S2. No rub. ABDOMEN: Benign. Bowel sounds positive. GENITALIA/RECTUM: Noguera absent. BACK/EXTREMITIES: Edema 0+. NEUROLOGICAL: Alert and motor intact. SKIN: LYMPHATICS: LABORATORY DATA: Labs show sodium 126. ASSESSMENT AND PLAN: 1. Hyponatremia, improved. 2. Chronic kidney disease, stage 1, stable. I would recommend fluid restriction. 3. Hypomagnesemia. I would recommend 1 g of mag sulfate IV. Job ID: [id number]
[2019-03-25 05:13] LABS: BUN (Urea Nitrogen) 8 mg/dL (8.9-20.6); Calc. Creatinine Clearance 430 mL/min (70-130); Estimated GFR-MDRD Greater than 90; Glucose 105 mg/dL (70-105); Magnesium 1.7 mg/dL (1.6-2.6)
[2019-03-25 05:21] LABS: Anion Gap 14 mmol/L (10-20); Carbon Dioxide 38 mmol/L (22-29); Chloride 78 mmol/L (98-107); Potassium 3.5 mmol/L (3.5-5.1); Sodium 126 mmol/L (136-145)
[2019-03-25] MEDS: Folic Acid 1 MG TAB PO SCH (07:53)
[2019-03-25] MEDS: AcetaZOLAMIDE 250 MG TAB PO SCH (07:53)
[2019-03-25] MEDS: Cyanocobalamin (Vitamin B-12) 1,000 MCG TAB PO SCH (07:53)
[2019-03-25] MEDS: Aspirin 81 mg Enteric Coated Tablet PO SCH (07:53)
[2019-03-25] MEDS: Carvedilol 6.25 MG TAB PO SCH ×2 (07:53→16:42)
[2019-03-25] MEDS: Enoxaparin Sodium 40 MG/0.4 ML SYRINGE SC SCH (07:54)
--- NOTE | 2019-03-25 14:02 | PDOC.PN ---
- Subjective Encounter Start Date: 03/25/19 Encounter Start Time: 08:15 Patient seen and examined. No new complaints. No overnight events - Objective Resuscitation Status - Order Detail: 03/22/19 18:32 Resuscitation Status Routine Resuscitation Status: FULL: Full Resuscitation Discussed with: ALVARO Robles Spoke with patient Additional comments: Physician updates at 1834 MAR Reviewed: Yes Vital Signs & Weight: Vital Signs (12 hours) Temp Pulse Resp BP BP Pulse Ox 03/25/19 12:00 97.8 F 82 22 H 130/71 89 L 03/25/19 08:00 98.1 F 75 18 126/64 90 L 03/25/19 07:53 126/64 03/25/19 03:15 97.4 F L 81 20 124/62 94 L Weight Weight 491 lb 3.2 oz I&O: 03/24/19 03/25/19 03/26/19 06:59 06:59 06:59 Intake Total 1540 880 440 Output Total 1075 2470 Balance 465 -1590 440 Result Diagrams: 03/23/19 03:53 03/25/19 04:17 EKG Reviewed by me: Yes Phys Exam - Physical Examination Constitutional: NAD HEENT: PERRLA, moist MMs, sclera anicteric Neck: no JVD, supple Respiratory: no wheezing, no rales, no rhonchi obesity limiting exam Cardiovascular: RRR, no significant murmur, no rub Gastrointestinal: soft, non-tender, no distention, positive bowel sounds morbid obesity+ bilateral lymphoedema+ Neurological: non-focal, normal sensation, moves all 4 limbs Lymphatic: no nodes Psychiatric: normal affect, A&O x 3 Skin: no rash, normal turgor Dx/Plan (1) Abnormal blood electrolyte level Code(s): E87.8 - OTH DISORDERS OF ELECTROLYTE AND FLUID BALANCE, NEC Status: Acute (2) Acute on chronic diastolic ACC/AHA stage C congestive heart failure Code(s): I50.33 - ACUTE ON CHRONIC DIASTOLIC (CONGESTIVE) HEART FAILURE Status : Acute (3) Acute on chronic respiratory failure with hypoxia and hypercapnia Code(s): J96.21 - ACUTE AND CHRONIC RESPIRATORY FAILURE WITH HYPOXIA; J96.22 - ACUTE AND CHRONIC RESPIRATORY FAILURE WITH HYPERCAPNIA Status: Acute (4) Alcohol abuse Code(s): F10.10 - ALCOHOL ABUSE, UNCOMPLICATED Status: Chronic (5) HTN (hypertension) Code(s): I10 - ESSENTIAL (PRIMARY) HYPERTENSION Status: Chronic Qualifiers: (6) Lymphedema of both lower extremities Code(s): I89.0 - LYMPHEDEMA, NOT ELSEWHERE CLASSIFIED Status: Chronic Comment: chronic condition (7) Macrocytosis Code(s): D75.89 - OTHER SPECIFIED DISEASES OF BLOOD AND BLOOD-FORMING ORGANS Status: Chronic (8) Morbid obesity with BMI of 70 and over, adult Code(s): E66.01 - MORBID (SEVERE) OBESITY DUE TO EXCESS CALORIES; Z68.45 - BODY MASS INDEX (BMI) 70 OR GREATER, ADULT Status: Chronic (9) Pickwickian syndrome Code(s): E66.2 - MORBID (SEVERE) OBESITY WITH ALVEOLAR HYPOVENTILATION Status : Chronic (10) Tobacco abuse Code(s): Z72.0 - TOBACCO USE Status: Chronic Comment: Tobacco cessation resources - Plan cont current plan of care, plan discussed w/ family, continue antibiotics, PT/OT , bilingual social worker * continue levaquin * follow blood culture result * discussed with family bedside * nephrology managing sodium * will consult palliative care * medication reviewed as below * symptomatic treatment. Review of Systems - Review of Systems Constitutional: weakness. negative: fever, chills, sweats, malaise, other Respiratory: negative: Cough, Dry, Shortness of Breath, Hemoptysis, SOB with Excertion, Pleuritic Pain, Sputum, Wheezing Cardiovascular: light headedness. negative: chest pain, palpitations, orthopnea , paroxysmal nocturnal dyspnea, edema, other Gastrointestinal: negative: Nausea, Vomiting, Abdominal Pain, Diarrhea, Constipation, Melena, Hematochezia, Other Genitourinary: negative: Dysuria, Frequency, Incontinence, Hematuria, Retention , Other Musculoskeletal: negative: Neck Pain, Shoulder Pain, Arm Pain, Back Pain, Hand Pain, Leg Pain, Foot Pain, Other - Medications/Allergies Allergies/Adverse Reactions: Allergies Allergy/AdvReac Type Severity Reaction Status Date / Time No Known Drug Allergies Allergy Verified 03/22/19 09:37 Medications: Current Medications Acetaminophen (Tylenol) 650 mg PO Q4H PRN PRN Reason: Headache/Fever/Mild Pain (1-3) Albuterol/Ipratropium (Duoneb) 3 ml NEB [id number] PRN PRN Reason: SOB &/or Wheezing Artificial Tears (Tears Naturale) 2 drop EA EYE PRN PRN PRN Reason: Dry Eyes Aspirin (Ecotrin) 81 mg PO DAILY [facility] Last Admin: 03/25/19 07:53 Dose: 81 mg Bisacodyl (Dulcolax) 10 mg PO DAILYPRN PRN PRN Reason: Constipation Calcium Carbonate (Tums) 1,000 mg PO Q4H PRN PRN Reason: Heartburn or Indigestion Carvedilol (Coreg) 6.25 mg PO BID-[facility] Last Admin: 03/25/19 07:53 Dose: 6.25 mg Cyanocobalamin (Vitamin B-12) 1,000 mcg PO DAILY [facility] Last Admin: 03/25/19 07:53 Dose: 1,000 mcg Enoxaparin Sodium (Lovenox) 40 mg SC 0900 [facility] Last Admin: 03/25/19 07:54 Dose: 40 mg Folic Acid (Folvite) 1 mg PO DAILY [facility] Last Admin: 03/25/19 07:53 Dose: 1 mg Guaifenesin (Robitussin Sf) 200 mg PO Q4H PRN PRN Reason: Cough Guaifenesin/Dextromethorphan (Robitussin Dm) 15 ml PO Q4H PRN PRN Reason: Cough Hydralazine HCl (Apresoline) 10 mg SLOW IVP Q4H PRN PRN Reason: SBP > 180 and HR < 70 Levofloxacin 750 mg/ Device 150 mls @ 100 mls/hr IVPB 1000 [facility] Last Admin: 03/25/19 09:25 Dose: 150 mls Loperamide HCl (Imodium) 2 mg PO PRN PRN PRN Reason: Diarrhea/Loose Stools Nystatin (Mycostatin Powder) 1 gm TOP BID PRN PRN Reason: Topical Irritations Ondansetron HCl (Zofran) 4 mg IVP Q6H PRN PRN Reason: Nausea/Vomiting Ondansetron HCl (Zofran Odt) 4 mg PO Q6H PRN PRN Reason: Nausea/Vomiting Sodium Chloride (Flush - Normal Saline) 10 ml IVF Q12HR [facility] Last Admin: 03/25/19 07:54 Dose: 10 ml Sodium Chloride (Flush - Normal Saline) 10 ml IVF PRN PRN PRN Reason: Saline Flush Sodium Chloride ([place] Nasal [place] 0.65%) 0 ml EA NARE QIDPRN PRN PRN Reason: Nasal Congestion Throat Lozenges (Cepastat Lozenges) 1 ro PO Q2H PRN PRN Reason: Sore Throat Zolpidem Tartrate (Ambien) 5 mg PO HSPRN PRN PRN Reason: Insomnia
--- NOTE | 2019-03-25 14:51 | PRG ---
DATE OF SERVICE: 03/25/2019 SUBJECTIVE: This is a 48-year-old gentleman, being seen for hyponatremia. The patient denied nausea, vomiting, or chest pain. OBJECTIVE: CONSTITUTIONAL: The patient is awake, alert, in no acute distress. GENERAL APPEARANCE AND MENTAL STATUS: Fair. VITAL SIGNS: Pulse 75, breathing 16, blood pressure was 150/71. HEAD/NECK: Normocephalic. Atraumatic. EYES: EOMI. No deformity. EARS: Clear. No ulcers. NOSE: Intact. No lesions. MOUTH: Clear. No discharge. THROAT: Clear. No exudate. LUNGS: Clear. No crackles. CARDIAC: S1, S2. No rub. ABDOMEN: Benign. Bowel sounds positive. GENITALIA/RECTUM: Noguera absent. BACK/EXTREMITIES: Edema 0+. NEUROLOGICAL: Alert and motor intact. SKIN: LYMPHATICS: LABORATORY DATA: Hemoglobin 14. Sodium 126. ASSESSMENT AND PLAN: 1. Chronic kidney disease, stage 1, stable. 2. Hyponatremia, stable. 3. Respiratory acidosis. The patient is on acetazolamide. I would recommend Pulmonary consultation. 4. Hypomagnesemia, resolved. 5. Overall prognosis is poor. Job ID: [id number]
[2019-03-26] MEDS: Aspirin 81 mg Enteric Coated Tablet PO SCH (08:27)
[2019-03-26] MEDS: Carvedilol 6.25 MG TAB PO SCH ×2 (08:27→17:49)
[2019-03-26] MEDS: Cyanocobalamin (Vitamin B-12) 1,000 MCG TAB PO SCH (08:27)
[2019-03-26] MEDS: Folic Acid 1 MG TAB PO SCH (08:27)
[2019-03-26] MEDS: Enoxaparin Sodium 40 MG/0.4 ML SYRINGE SC SCH (08:27)
[2019-03-26 09:57] LABS: BUN (Urea Nitrogen) 9 mg/dL (8.9-20.6); Calc. Creatinine Clearance 394 mL/min (70-130); Calcium 9.2 mg/dL (7.8-10.44); Estimated GFR-MDRD Greater than 90; Glucose 97 mg/dL (70-105)
[2019-03-26 10:07] LABS: Anion Gap 15 mmol/L (10-20); Carbon Dioxide 37 mmol/L (22-29); Chloride 79 mmol/L (98-107); Potassium 3.5 mmol/L (3.5-5.1); Sodium 127 mmol/L (136-145)
--- NOTE | 2019-03-26 11:52 | PDOC.PN ---
- Subjective Encounter Start Date: 03/26/19 Encounter Start Time: 09:00 Patient seen and examined. No new complaints. No overnight events - Objective Resuscitation Status - Order Detail: 03/22/19 18:32 Resuscitation Status Routine Resuscitation Status: FULL: Full Resuscitation Discussed with: ALVARO Robles Spoke with patient Additional comments: Physician updates at 1834 MAR Reviewed: Yes Vital Signs & Weight: Vital Signs (12 hours) Temp Pulse Resp BP BP Pulse Ox 03/26/19 11:36 98.0 F 80 18 128/72 90 L 03/26/19 08:27 130/71 03/26/19 08:00 97.4 F L 78 18 131/75 93 L 03/26/19 03:57 97.2 F L 72 20 128/70 92 L Weight Weight 491 lb 3.2 oz I&O: 03/25/19 03/26/19 03/27/19 06:59 06:59 06:59 Intake Total 880 1010 240 Output Total 2470 1675 Balance -1590 -665 240 Result Diagrams: 03/23/19 03:53 03/26/19 09:17 EKG Reviewed by me: Yes (nsr) Phys Exam - Physical Examination Constitutional: NAD HEENT: PERRLA, moist MMs, sclera anicteric Neck: no JVD, supple Respiratory: no wheezing, no rales, no rhonchi morbid obesity limiting exam Cardiovascular: RRR, no significant murmur, no rub Gastrointestinal: soft, non-tender, no distention, positive bowel sounds morbid obesity+ chronic lymphoedema Lymphatic: no nodes Psychiatric: normal affect, A&O x 3 Skin: no rash, normal turgor Dx/Plan (1) Abnormal blood electrolyte level Code(s): E87.8 - OTH DISORDERS OF ELECTROLYTE AND FLUID BALANCE, NEC Status: Acute (2) Acute on chronic diastolic ACC/AHA stage C congestive heart failure Code(s): I50.33 - ACUTE ON CHRONIC DIASTOLIC (CONGESTIVE) HEART FAILURE Status : Acute (3) Acute on chronic respiratory failure with hypoxia and hypercapnia Code(s): J96.21 - ACUTE AND CHRONIC RESPIRATORY FAILURE WITH HYPOXIA; J96.22 - ACUTE AND CHRONIC RESPIRATORY FAILURE WITH HYPERCAPNIA Status: Acute (4) Alcohol abuse Code(s): F10.10 - ALCOHOL ABUSE, UNCOMPLICATED Status: Chronic (5) HTN (hypertension) Code(s): I10 - ESSENTIAL (PRIMARY) HYPERTENSION Status: Chronic Qualifiers: (6) Lymphedema of both lower extremities Code(s): I89.0 - LYMPHEDEMA, NOT ELSEWHERE CLASSIFIED Status: Chronic Comment: chronic condition (7) Macrocytosis Code(s): D75.89 - OTHER SPECIFIED DISEASES OF BLOOD AND BLOOD-FORMING ORGANS Status: Chronic (8) Morbid obesity with BMI of 70 and over, adult Code(s): E66.01 - MORBID (SEVERE) OBESITY DUE TO EXCESS CALORIES; Z68.45 - BODY MASS INDEX (BMI) 70 OR GREATER, ADULT Status: Chronic (9) Pickwickian syndrome Code(s): E66.2 - MORBID (SEVERE) OBESITY WITH ALVEOLAR HYPOVENTILATION Status : Chronic (10) Tobacco abuse Code(s): Z72.0 - TOBACCO USE Status: Chronic Comment: Tobacco cessation resources - Plan cont current plan of care, continue antibiotics, PT/OT, social insurance adviser * continue levaquin, pt is responding to this antibiotics * medication reviewed as below * symptomatic treatment * start PT/OT and discharge planning * supportive care. Review of Systems - Review of Systems ENT: negative: Ear Pain, Ear Discharge, Nose Pain, Nose Discharge, Nose Congestion, Mouth Pain, Mouth Swelling, Throat Pain, Throat Swelling, Other Respiratory: negative: Cough, Dry, Shortness of Breath, Hemoptysis, SOB with Excertion, Pleuritic Pain, Sputum, Wheezing Cardiovascular: negative: chest pain, palpitations, orthopnea, paroxysmal nocturnal dyspnea, edema, light headedness, other Gastrointestinal: negative: Nausea, Vomiting, Abdominal Pain, Diarrhea, Constipation, Melena, Hematochezia, Other Genitourinary: negative: Dysuria, Frequency, Incontinence, Hematuria, Retention , Other Musculoskeletal: negative: Neck Pain, Shoulder Pain, Arm Pain, Back Pain, Hand Pain, Leg Pain, Foot Pain, Other - Medications/Allergies Allergies/Adverse Reactions: Allergies Allergy/AdvReac Type Severity Reaction Status Date / Time No Known Drug Allergies Allergy Verified 03/22/19 09:37 Medications: Current Medications Acetaminophen (Tylenol) 650 mg PO Q4H PRN PRN Reason: Headache/Fever/Mild Pain (1-3) Albuterol/Ipratropium (Duoneb) 3 ml NEB [id number] PRN PRN Reason: SOB &/or Wheezing Artificial Tears (Tears Naturale) 2 drop EA EYE PRN PRN PRN Reason: Dry Eyes Aspirin (Ecotrin) 81 mg PO DAILY [facility] Last Admin: 03/26/19 08:27 Dose: 81 mg Bisacodyl (Dulcolax) 10 mg PO DAILYPRN PRN PRN Reason: Constipation Calcium Carbonate (Tums) 1,000 mg PO Q4H PRN PRN Reason: Heartburn or Indigestion Carvedilol (Coreg) 6.25 mg PO BID-[facility] Last Admin: 03/26/19 08:27 Dose: 6.25 mg Cyanocobalamin (Vitamin B-12) 1,000 mcg PO DAILY [facility] Last Admin: 03/26/19 08:27 Dose: 1,000 mcg Enoxaparin Sodium (Lovenox) 40 mg SC 0900 [facility] Last Admin: 03/26/19 08:27 Dose: 40 mg Folic Acid (Folvite) 1 mg PO DAILY [facility] Last Admin: 03/26/19 08:27 Dose: 1 mg Guaifenesin (Robitussin Sf) 200 mg PO Q4H PRN PRN Reason: Cough Guaifenesin/Dextromethorphan (Robitussin Dm) 15 ml PO Q4H PRN PRN Reason: Cough Hydralazine HCl (Apresoline) 10 mg SLOW IVP Q4H PRN PRN Reason: SBP > 180 and HR < 70 Levofloxacin 750 mg/ Device 150 mls @ 100 mls/hr IVPB 1000 [facility] Last Admin: 03/26/19 10:07 Dose: 150 mls Loperamide HCl (Imodium) 2 mg PO PRN PRN PRN Reason: Diarrhea/Loose Stools Nystatin (Mycostatin Powder) 1 gm TOP BID PRN PRN Reason: Topical Irritations Ondansetron HCl (Zofran) 4 mg IVP Q6H PRN PRN Reason: Nausea/Vomiting Ondansetron HCl (Zofran Odt) 4 mg PO Q6H PRN PRN Reason: Nausea/Vomiting Sodium Chloride (Flush - Normal Saline) 10 ml IVF Q12HR [facility] Last Admin: 03/26/19 08:28 Dose: 10 ml Sodium Chloride (Flush - Normal Saline) 10 ml IVF PRN PRN PRN Reason: Saline Flush Sodium Chloride ([place] Nasal [place] 0.65%) 0 ml EA NARE QIDPRN PRN PRN Reason: Nasal Congestion Throat Lozenges (Cepastat Lozenges) 1 ro PO Q2H PRN PRN Reason: Sore Throat Zolpidem Tartrate (Ambien) 5 mg PO HSPRN PRN PRN Reason: Insomnia
--- NOTE | 2019-03-26 12:45 | PRG ---
DATE OF SERVICE: 03/26/2019 SUBJECTIVE: A 48-year-old gentleman, being seen for hyponatremia. The patient denies any nausea, vomiting, or chest pain. OBJECTIVE: CONSTITUTIONAL: The patient is awake and alert. VITAL SIGNS: Afebrile, pulse 80, breathing 16, and blood pressure 122/72. GENERAL APPEARANCE AND MENTAL STATUS: Fair. HEAD/NECK: Normocephalic. Atraumatic. EYES: EOMI. No deformity. EARS: Clear. No ulcers. NOSE: Intact. No lesions. MOUTH: Clear. No discharge. THROAT: Clear. No exudate. LUNGS: Clear. No crackles. CARDIAC: S1, S2. No rub. ABDOMEN: Benign. Bowel sounds positive. GENITALIA/RECTUM: Noguera absent. BACK/EXTREMITIES: Edema 0+. NEUROLOGICAL: Alert and motor intact. SKIN: LYMPHATICS: LABORATORY DATA: Labs show creatinine 0.7 and sodium 127. ASSESSMENT AND PLAN: 1. Hyponatremia, improving. We would recommend 800 mL fluid restriction. 2. Anemia, stable. 3. Medication based on GFR appropriate. No indication for hypertonic saline. Job ID: [id number]
[2019-03-27 05:17] LABS: #Eosinphils 0.1 thou/uL (0.0-0.7); #Monocytes 0.8 thou/uL (0.11-0.59); #Neutrophils 4.2 thou/uL (1.40-6.50); %Basophils 0.4 % (0.0-1.0); %Eosinophils 1.8 % (0.0-10.0); %Lymphocytes 27.5 % (21.0-51.0); %Monocytes 10.7 % (0.0-10.0); %Neutrophils 59.6 % (42.0-75.0); Hemoglobin 13.6 g/dL (14.0-18.0); Mean Corpuscular HGB CONC 32.4 g/dL (32.0-36.0); Mean Corpuscular Hemoglobin 33.2 pg (27.0-31.0); Mean Platelet Volume 7.4 fL (7.4-10.4); Platelet Count 204 thou/uL (130-400); RBC Distribution Width 16.7 % (11.5-14.5); White Blood Cell (WBC) Count 7.1 thou/uL (4.8-10.8)
[2019-03-27 05:31] LABS: BUN (Urea Nitrogen) 9 mg/dL (8.9-20.6); Calc. Creatinine Clearance 443 mL/min (70-130); Calcium 9.1 mg/dL (7.8-10.44); Estimated GFR-MDRD Greater than 90; Glucose 97 mg/dL (70-105)
[2019-03-27 05:40] LABS: Anion Gap 15 mmol/L (10-20); Carbon Dioxide 34 mmol/L (22-29); Chloride 82 mmol/L (98-107); Potassium 3.6 mmol/L (3.5-5.1); Sodium 127 mmol/L (136-145)
[2019-03-27] MEDS ORDERED: Tolvaptan 15 MG TAB PO SCH (10:15)
[2019-03-27] MEDS: Carvedilol 6.25 MG TAB PO SCH ×2 (10:47→16:37)
[2019-03-27] MEDS: Enoxaparin Sodium 40 MG/0.4 ML SYRINGE SC SCH (10:48)
[2019-03-27] MEDS: Cyanocobalamin (Vitamin B-12) 1,000 MCG TAB PO SCH (10:48)
[2019-03-27] MEDS: Aspirin 81 mg Enteric Coated Tablet PO SCH (10:48)
[2019-03-27] MEDS: Folic Acid 1 MG TAB PO SCH (10:49)
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
--- NOTE | 2019-03-27 12:48 | PRG ---
DATE OF SERVICE: 03/27/2019 SUBJECTIVE: This 48-year-old gentleman being seen for hyponatremia. The patient denies any nausea, vomiting, or chest pain. OBJECTIVE: CONSTITUTIONAL: The patient is awake and alert. VITAL SIGNS: Afebrile, pulse 70, breathing 16, blood pressure 124/65. GENERAL APPEARANCE AND MENTAL STATUS: Fair. HEAD/NECK: Normocephalic. Atraumatic. EYES: EOMI. No deformity. EARS: Clear. No ulcers. NOSE: Intact. No lesions. MOUTH: Clear. No discharge. THROAT: Clear. No exudate. LUNGS: Clear. No crackles. CARDIAC: S1, S2. No rub. ABDOMEN: Benign. Bowel sounds positive. GENITALIA/RECTUM: Noguera absent. BACK/EXTREMITIES: Edema 0+. NEUROLOGICAL: Alert and motor intact. SKIN: LYMPHATICS: LABORATORY DATA: Hemoglobin 13.6. Creatinine 0.65, sodium 127. ASSESSMENT: 1. Hyponatremia, slight improvement, but no immediate change. We will start the patient on Samsca. I discussed the benefits of this medication including given side effects were discussed . 2. Hypertension, stable. 3. Anemia, stable. PLAN: 1. Medication based on GFR appropriate. 2. No indication for hypertonic saline. 3. I would again recommend aggressive fluid restriction. Job ID: [id number]
[2019-03-28] MEDS: Sodium Chloride 0.65% Nasal 44 ML BOT EA NARE PRN ×2 (05:33→08:57)
[2019-03-28] MEDS ORDERED: Clopidogrel Bisulfate 75 MG TAB ONE (07:24)
[2019-03-28] MEDS: Aspirin 81 mg Enteric Coated Tablet PO SCH (08:52)
[2019-03-28] MEDS: Carvedilol 6.25 MG TAB PO SCH ×2 (08:52→16:18)
[2019-03-28] MEDS: Enoxaparin Sodium 40 MG/0.4 ML SYRINGE SC SCH (08:53)
[2019-03-28] MEDS: Folic Acid 1 MG TAB PO SCH (08:53)
[2019-03-28] MEDS: Cyanocobalamin (Vitamin B-12) 1,000 MCG TAB PO SCH (08:53)
[2019-03-28 10:46] LABS: BUN (Urea Nitrogen) 8 mg/dL (8.9-20.6); Calc. Creatinine Clearance 430 mL/min (70-130); Calcium 9.5 mg/dL (7.8-10.44); Estimated GFR-MDRD Greater than 90; Glucose 74 mg/dL (70-105)
[2019-03-28 10:56] LABS: Anion Gap 15 mmol/L (10-20); Carbon Dioxide 34 mmol/L (22-29); Chloride 87 mmol/L (98-107); Potassium 3.8 mmol/L (3.5-5.1); Sodium 132 mmol/L (136-145)
--- NOTE | 2019-03-28 11:12 | PDOC.PN ---
- Subjective Encounter Start Date: 03/28/19 Encounter Start Time: 10:30 Patient seen and examined. No new complaints. No overnight events - Objective Resuscitation Status - Order Detail: 03/22/19 18:32 Resuscitation Status Routine Resuscitation Status: FULL: Full Resuscitation Discussed with: ALVARO Robles Spoke with patient Additional comments: Physician updates at 1834 MAR Reviewed: Yes Vital Signs & Weight: Vital Signs (12 hours) Temp Pulse Resp BP BP Pulse Ox 03/28/19 08:52 134/76 03/28/19 08:00 92 L 03/28/19 07:28 97.8 F 82 19 134/76 92 L 03/28/19 04:34 98.2 F 83 18 109/70 03/28/19 03:49 90 L 03/28/19 00:40 97.8 F 83 18 106/65 90 L Weight Weight 491 lb 3.2 oz I&O: 03/27/19 03/28/19 03/29/19 06:59 06:59 06:59 Intake Total 1600 1110 Output Total 2800 3515 400 Balance -1200 -2405 -400 Result Diagrams: 03/27/19 04:19 03/28/19 10:19 Phys Exam - Physical Examination Constitutional: NAD HEENT: PERRLA, moist MMs, sclera anicteric Neck: no JVD, supple Respiratory: no wheezing, no rales, no rhonchi Cardiovascular: RRR, no significant murmur, no rub Gastrointestinal: soft, non-tender, no distention, positive bowel sounds morbid obesity+ chronic lyphoedema Neurological: non-focal, normal sensation Psychiatric: normal affect, A&O x 3 Skin: no rash, normal turgor Dx/Plan (1) Abnormal blood electrolyte level Code(s): E87.8 - OTH DISORDERS OF ELECTROLYTE AND FLUID BALANCE, NEC Status: Acute (2) Acute on chronic diastolic ACC/AHA stage C congestive heart failure Code(s): I50.33 - ACUTE ON CHRONIC DIASTOLIC (CONGESTIVE) HEART FAILURE Status : Acute (3) Acute on chronic respiratory failure with hypoxia and hypercapnia Code(s): J96.21 - ACUTE AND CHRONIC RESPIRATORY FAILURE WITH HYPOXIA; J96.22 - ACUTE AND CHRONIC RESPIRATORY FAILURE WITH HYPERCAPNIA Status: Acute (4) Alcohol abuse Code(s): F10.10 - ALCOHOL ABUSE, UNCOMPLICATED Status: Chronic (5) HTN (hypertension) Code(s): I10 - ESSENTIAL (PRIMARY) HYPERTENSION Status: Chronic Qualifiers: (6) Lymphedema of both lower extremities Code(s): I89.0 - LYMPHEDEMA, NOT ELSEWHERE CLASSIFIED Status: Chronic Comment: chronic condition (7) Macrocytosis Code(s): D75.89 - OTHER SPECIFIED DISEASES OF BLOOD AND BLOOD-FORMING ORGANS Status: Chronic (8) Morbid obesity with BMI of 70 and over, adult Code(s): E66.01 - MORBID (SEVERE) OBESITY DUE TO EXCESS CALORIES; Z68.45 - BODY MASS INDEX (BMI) 70 OR GREATER, ADULT Status: Chronic (9) Pickwickian syndrome Code(s): E66.2 - MORBID (SEVERE) OBESITY WITH ALVEOLAR HYPOVENTILATION Status : Chronic (10) Tobacco abuse Code(s): Z72.0 - TOBACCO USE Status: Chronic Comment: Tobacco cessation resources - Plan cont current plan of care, continue antibiotics, 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 * sodium improving Review of Systems - Review of Systems Constitutional: weakness. negative: fever, chills, sweats, malaise, other ENT: negative: Ear Pain, Ear Discharge, Nose Pain, Nose Discharge, Nose Congestion, Mouth Pain, Mouth Swelling, Throat Pain, Throat Swelling, Other Respiratory: negative: Cough, Dry, Shortness of Breath, Hemoptysis, SOB with Excertion, Pleuritic Pain, Sputum, Wheezing Cardiovascular: negative: chest pain, palpitations, orthopnea, paroxysmal nocturnal dyspnea, edema, light headedness, other Gastrointestinal: negative: Nausea, Vomiting, Abdominal Pain, Diarrhea, Constipation, Melena, Hematochezia, Other Genitourinary: negative: Dysuria, Frequency, Incontinence, Hematuria, Retention , Other Musculoskeletal: negative: Neck Pain, Shoulder Pain, Arm Pain, Back Pain, Hand Pain, Leg Pain, Foot Pain, Other - Medications/Allergies Allergies/Adverse Reactions: Allergies Allergy/AdvReac Type Severity Reaction Status Date / Time No Known Drug Allergies Allergy Verified 03/22/19 09:37 Medications: Current Medications Acetaminophen (Tylenol) 650 mg PO Q4H PRN PRN Reason: Headache/Fever/Mild Pain (1-3) Albuterol/Ipratropium (Duoneb) 3 ml NEB [id number] PRN PRN Reason: SOB &/or Wheezing Artificial Tears (Tears Naturale) 2 drop EA EYE PRN PRN PRN Reason: Dry Eyes Aspirin (Ecotrin) 81 mg PO DAILY [facility] Last Admin: 03/28/19 08:52 Dose: 81 mg Bisacodyl (Dulcolax) 10 mg PO DAILYPRN PRN PRN Reason: Constipation Calcium Carbonate (Tums) 1,000 mg PO Q4H PRN PRN Reason: Heartburn or Indigestion Carvedilol (Coreg) 6.25 mg PO BID-[facility] Last Admin: 03/28/19 08:52 Dose: 6.25 mg Cyanocobalamin (Vitamin B-12) 1,000 mcg PO DAILY [facility] Last Admin: 03/28/19 08:53 Dose: 1,000 mcg Enoxaparin Sodium (Lovenox) 40 mg SC 0900 [facility] Last Admin: 03/28/19 08:53 Dose: 40 mg Folic Acid (Folvite) 1 mg PO DAILY [facility] Last Admin: 03/28/19 08:53 Dose: 1 mg Guaifenesin (Robitussin Sf) 200 mg PO Q4H PRN PRN Reason: Cough Guaifenesin/Dextromethorphan (Robitussin Dm) 15 ml PO Q4H PRN PRN Reason: Cough Hydralazine HCl (Apresoline) 10 mg SLOW IVP Q4H PRN PRN Reason: SBP > 180 and HR < 70 Levofloxacin (Levaquin) 750 mg PO 0600 [facility] Loperamide HCl (Imodium) 2 mg PO PRN PRN PRN Reason: Diarrhea/Loose Stools Nystatin (Mycostatin Powder) 1 gm TOP BID PRN PRN Reason: Topical Irritations Ondansetron HCl (Zofran) 4 mg IVP Q6H PRN PRN Reason: Nausea/Vomiting Ondansetron HCl (Zofran Odt) 4 mg PO Q6H PRN PRN Reason: Nausea/Vomiting Sodium Chloride (Flush - Normal Saline) 10 ml IVF Q12HR [facility] Last Admin: 03/28/19 08:53 Dose: 10 ml Sodium Chloride (Flush - Normal Saline) 10 ml IVF PRN PRN PRN Reason: Saline Flush Sodium Chloride ([place] Nasal [place] 0.65%) 0 ml EA NARE QIDPRN PRN PRN Reason: Nasal Congestion Last Admin: 03/28/19 08:57 Dose: 1 spr Throat Lozenges (Cepastat Lozenges) 1 ro PO Q2H PRN PRN Reason: Sore Throat Zolpidem Tartrate (Ambien) 5 mg PO HSPRN PRN PRN Reason: Insomnia
--- NOTE | 2019-03-28 11:26 | PRG ---
DATE OF SERVICE: 03/28/2019 SUBJECTIVE: This is a 48-year-old gentleman, being seen for hyponatremia. The patient denies any nausea, vomiting, or chest pain. OBJECTIVE: CONSTITUTIONAL: The patient is awake and alert. VITAL SIGNS: Afebrile, pulse 82, breathing 16, blood pressure 134/76. GENERAL APPEARANCE AND MENTAL STATUS: Fair. HEAD/NECK: Normocephalic. Atraumatic. EYES: EOMI. No deformity. EARS: Clear. No ulcers. NOSE: Intact. No lesions. MOUTH: Clear. No discharge. THROAT: Clear. No exudate. LUNGS: Clear. No crackles. CARDIAC: S1, S2. No rub. ABDOMEN: Benign. Bowel sounds positive. GENITALIA/RECTUM: [place] absent. BACK/EXTREMITIES: Edema 0+. NEUROLOGICAL: Alert and motor intact. SKIN: LYMPHATICS: LABORATORY DATA: Showed hemoglobin 13.6. Sodium 132. ASSESSMENT AND PLAN: 1. Hyponatremia, resolved. 2. Hypertension, stable. 3. Anemia, stable. We would recommend 800 mL fluid restriction. I will sign off on this patient. Please reconsult as needed. Job ID: [id number]
--- NOTE | 2019-03-28 15:12 | EKG ---
Test Reason : Blood Pressure : / mmHG Vent. Rate : 085 BPM Atrial Rate : 085 BPM P-R Int : 150 ms QRS Dur : 082 ms QT Int : 428 ms P-R-T Axes : 050 048 062 degrees QTc Int : 509 ms Normal sinus rhythm Possible Left atrial enlargement Nonspecific T wave abnormality Prolonged QT Abnormal ECG Confirmed by INDIA SORIA ([id number]), primer expeditor and drier FITZ DICKEY ([id number]) on 03/28/2019 3:12:29 PM Referred By: Confirmed By:INDIA SORIA
[2019-03-29] MEDS: Aspirin 81 mg Enteric Coated Tablet PO SCH (08:08)
[2019-03-29] MEDS: Cyanocobalamin (Vitamin B-12) 1,000 MCG TAB PO SCH (08:08)
[2019-03-29] MEDS: Carvedilol 6.25 MG TAB PO SCH ×2 (08:08→16:37)
[2019-03-29] MEDS: Folic Acid 1 MG TAB PO SCH (08:09)
[2019-03-29] MEDS: Enoxaparin Sodium 40 MG/0.4 ML SYRINGE SC SCH (08:09)
--- NOTE | 2019-03-29 12:34 | PDOC.PN ---
- Subjective Encounter Start Date: 03/29/19 Encounter Start Time: 10:00 Patient seen and examined. No new complaints. No overnight events - Objective Resuscitation Status - Order Detail: 03/22/19 18:32 Resuscitation Status Routine Resuscitation Status: FULL: Full Resuscitation Discussed with: ALVARO Robles Spoke with patient Additional comments: Physician updates at 1834 MAR Reviewed: Yes Vital Signs & Weight: Vital Signs (12 hours) Temp Pulse Resp BP BP Pulse Ox 03/29/19 08:08 118/73 03/29/19 08:00 97.5 F L 82 17 120/67 91 L 03/29/19 04:00 97.7 F 82 18 118/73 92 L Weight Weight 491 lb 3.2 oz I&O: 03/28/19 03/29/19 03/30/19 06:59 06:59 06:59 Intake Total 1110 820 Output Total 3515 2970 Balance -2405 -2150 Result Diagrams: 03/27/19 04:19 03/28/19 10:19 Phys Exam - Physical Examination Constitutional: NAD HEENT: PERRLA, moist MMs, sclera anicteric Neck: no JVD, supple Respiratory: no wheezing, no rales, no rhonchi Cardiovascular: RRR, no significant murmur, no rub Gastrointestinal: soft, non-tender, no distention, positive bowel sounds morbid obesity chronic lymphoedema Neurological: non-focal, normal sensation Lymphatic: no nodes Psychiatric: normal affect, A&O x 3 Skin: no rash, normal turgor Dx/Plan (1) Abnormal blood electrolyte level Code(s): E87.8 - OTH DISORDERS OF ELECTROLYTE AND FLUID BALANCE, NEC Status: Acute (2) Acute on chronic diastolic ACC/AHA stage C congestive heart failure Code(s): I50.33 - ACUTE ON CHRONIC DIASTOLIC (CONGESTIVE) HEART FAILURE Status : Acute (3) Acute on chronic respiratory failure with hypoxia and hypercapnia Code(s): J96.21 - ACUTE AND CHRONIC RESPIRATORY FAILURE WITH HYPOXIA; J96.22 - ACUTE AND CHRONIC RESPIRATORY FAILURE WITH HYPERCAPNIA Status: Acute (4) Alcohol abuse Code(s): F10.10 - ALCOHOL ABUSE, UNCOMPLICATED Status: Chronic (5) HTN (hypertension) Code(s): I10 - ESSENTIAL (PRIMARY) HYPERTENSION Status: Chronic Qualifiers: (6) Lymphedema of both lower extremities Code(s): I89.0 - LYMPHEDEMA, NOT ELSEWHERE CLASSIFIED Status: Chronic Comment: chronic condition (7) Macrocytosis Code(s): D75.89 - OTHER SPECIFIED DISEASES OF BLOOD AND BLOOD-FORMING ORGANS Status: Chronic (8) Morbid obesity with BMI of 70 and over, adult Code(s): E66.01 - MORBID (SEVERE) OBESITY DUE TO EXCESS CALORIES; Z68.45 - BODY MASS INDEX (BMI) 70 OR GREATER, ADULT Status: Chronic (9) Pickwickian syndrome Code(s): E66.2 - MORBID (SEVERE) OBESITY WITH ALVEOLAR HYPOVENTILATION Status : Chronic (10) Tobacco abuse Code(s): Z72.0 - TOBACCO USE Status: Chronic Comment: Tobacco cessation resources - Plan cont current plan of care, continue antibiotics, PT/OT, adoption social 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 Review of Systems - Review of Systems ENT: negative: Ear Pain, Ear Discharge, Nose Pain, Nose Discharge, Nose Congestion, Mouth Pain, Mouth Swelling, Throat Pain, Throat Swelling, Other Respiratory: negative: Cough, Dry, Shortness of Breath, Hemoptysis, SOB with Excertion, Pleuritic Pain, Sputum, Wheezing Cardiovascular: negative: chest pain, palpitations, orthopnea, paroxysmal nocturnal dyspnea, edema, light headedness, other Gastrointestinal: negative: Nausea, Vomiting, Abdominal Pain, Diarrhea, Constipation, Melena, Hematochezia, Other Genitourinary: negative: Dysuria, Frequency, Incontinence, Hematuria, Retention , Other - Medications/Allergies Allergies/Adverse Reactions: Allergies Allergy/AdvReac Type Severity Reaction Status Date / Time No Known Drug Allergies Allergy Verified 03/22/19 09:37 Medications: Current Medications Acetaminophen (Tylenol) 650 mg PO Q4H PRN PRN Reason: Headache/Fever/Mild Pain (1-3) Albuterol/Ipratropium (Duoneb) 3 ml NEB [id number] PRN PRN Reason: SOB &/or Wheezing Artificial Tears (Tears Naturale) 2 drop EA EYE PRN PRN PRN Reason: Dry Eyes Aspirin (Ecotrin) 81 mg PO DAILY [facility] Last Admin: 03/29/19 08:08 Dose: 81 mg Bisacodyl (Dulcolax) 10 mg PO DAILYPRN PRN PRN Reason: Constipation Calcium Carbonate (Tums) 1,000 mg PO Q4H PRN PRN Reason: Heartburn or Indigestion Carvedilol (Coreg) 6.25 mg PO BID-[facility] Last Admin: 03/29/19 08:08 Dose: 6.25 mg Cyanocobalamin (Vitamin B-12) 1,000 mcg PO DAILY [facility] Last Admin: 03/29/19 08:08 Dose: 1,000 mcg Enoxaparin Sodium (Lovenox) 40 mg SC 09 [facility] Last Admin: 03/29/19 08:09 Dose: 40 mg Folic Acid (Folvite) 1 mg PO DAILY [facility] Last Admin: 03/29/19 08:09 Dose: 1 mg Guaifenesin (Robitussin Sf) 200 mg PO Q4H PRN PRN Reason: Cough Guaifenesin/Dextromethorphan (Robitussin Dm) 15 ml PO Q4H PRN PRN Reason: Cough Hydralazine HCl (Apresoline) 10 mg SLOW IVP Q4H PRN PRN Reason: SBP > 180 and HR < 70 Levofloxacin (Levaquin) 750 mg PO 06 [facility] Last Admin: 03/29/19 05:40 Dose: 750 mg Loperamide HCl (Imodium) 2 mg PO PRN PRN PRN Reason: Diarrhea/Loose Stools Nystatin (Mycostatin Powder) 1 gm TOP BID PRN PRN Reason: Topical Irritations Ondansetron HCl (Zofran) 4 mg IVP Q6H PRN PRN Reason: Nausea/Vomiting Ondansetron HCl (Zofran Odt) 4 mg PO Q6H PRN PRN Reason: Nausea/Vomiting Sodium Chloride (Flush - Normal Saline) 10 ml IVF Q12HR [facility] Last Admin: 03/29/19 08:09 Dose: 10 ml Sodium Chloride (Flush - Normal Saline) 10 ml IVF PRN PRN PRN Reason: Saline Flush Sodium Chloride ([place] Nasal [place] 0.65%) 0 ml EA NARE QIDPRN PRN PRN Reason: Nasal Congestion Last Admin: 03/28/19 08:57 Dose: 1 spr Throat Lozenges (Cepastat Lozenges) 1 ro PO Q2H PRN PRN Reason: Sore Throat Zolpidem Tartrate (Ambien) 5 mg PO HSPRN PRN PRN Reason: Insomnia
[2019-03-30] MEDS: Carvedilol 6.25 MG TAB PO SCH ×2 (09:35→18:13)
[2019-03-30] MEDS: Folic Acid 1 MG TAB PO SCH (09:36)
[2019-03-30] MEDS: Cyanocobalamin (Vitamin B-12) 1,000 MCG TAB PO SCH (09:36)
[2019-03-30] MEDS: Enoxaparin Sodium 40 MG/0.4 ML SYRINGE SC SCH (09:36)
[2019-03-30] MEDS: Aspirin 81 mg Enteric Coated Tablet PO SCH (09:36)
--- NOTE | 2019-03-30 12:15 | PDOC.PN ---
- Subjective Encounter Start Date: 03/30/19 Encounter Start Time: 09:45 Patient seen and examined. No new complaints. No overnight events today pt was able to walk few steps - Objective Resuscitation Status - Order Detail: 03/22/19 18:32 Resuscitation Status Routine Resuscitation Status: FULL: Full Resuscitation Discussed with: ALVARO Robles Spoke with patient Additional comments: Physician updates at 1834 MAR Reviewed: Yes Vital Signs & Weight: Vital Signs (12 hours) Temp Pulse Resp BP BP Pulse Ox 03/30/19 09:35 105/66 03/30/19 08:00 97.7 F 83 20 105/66 89 L 03/30/19 04:00 98.2 F 85 18 104/66 91 L Weight Weight 491 lb 3.2 oz I&O: 03/29/19 03/30/19 03/31/19 06:59 06:59 06:59 Intake Total 820 790 Output Total 2970 1870 Balance -2150 -1080 Result Diagrams: 03/27/19 04:19 03/28/19 10:19 Phys Exam - Physical Examination Constitutional: NAD HEENT: PERRLA, moist MMs, sclera anicteric Neck: no JVD, supple Respiratory: no wheezing, no rales, no rhonchi Cardiovascular: RRR, no significant murmur, no rub Gastrointestinal: soft, non-tender, no distention, positive bowel sounds morbid obesity limiting exam chronic lymphoedema Neurological: non-focal, normal sensation Lymphatic: no nodes Psychiatric: normal affect, A&O x 3 Skin: no rash, normal turgor Dx/Plan (1) Abnormal blood electrolyte level Code(s): E87.8 - OTH DISORDERS OF ELECTROLYTE AND FLUID BALANCE, NEC Status: Acute (2) Acute on chronic diastolic ACC/AHA stage C congestive heart failure Code(s): I50.33 - ACUTE ON CHRONIC DIASTOLIC (CONGESTIVE) HEART FAILURE Status : Acute (3) Acute on chronic respiratory failure with hypoxia and hypercapnia Code(s): J96.21 - ACUTE AND CHRONIC RESPIRATORY FAILURE WITH HYPOXIA; J96.22 - ACUTE AND CHRONIC RESPIRATORY FAILURE WITH HYPERCAPNIA Status: Acute (4) Alcohol abuse Code(s): F10.10 - ALCOHOL ABUSE, UNCOMPLICATED Status: Chronic (5) HTN (hypertension) Code(s): I10 - ESSENTIAL (PRIMARY) HYPERTENSION Status: Chronic Qualifiers: (6) Lymphedema of both lower extremities Code(s): I89.0 - LYMPHEDEMA, NOT ELSEWHERE CLASSIFIED Status: Chronic Comment: chronic condition (7) Macrocytosis Code(s): D75.89 - OTHER SPECIFIED DISEASES OF BLOOD AND BLOOD-FORMING ORGANS Status: Chronic (8) Morbid obesity with BMI of 70 and over, adult Code(s): E66.01 - MORBID (SEVERE) OBESITY DUE TO EXCESS CALORIES; Z68.45 - BODY MASS INDEX (BMI) 70 OR GREATER, ADULT Status: Chronic (9) Pickwickian syndrome Code(s): E66.2 - MORBID (SEVERE) OBESITY WITH ALVEOLAR HYPOVENTILATION Status : Chronic (10) Tobacco abuse Code(s): Z72.0 - TOBACCO USE Status: Chronic Comment: Tobacco cessation resources - Plan cont current plan of care, continue antibiotics, PT/OT, 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 Review of Systems - Review of Systems Constitutional: weakness. negative: fever, chills, sweats, malaise, other ENT: negative: Ear Pain, Ear Discharge, Nose Pain, Nose Discharge, Nose Congestion, Mouth Pain, Mouth Swelling, Throat Pain, Throat Swelling, Other Respiratory: negative: Cough, Dry, Shortness of Breath, Hemoptysis, SOB with Excertion, Pleuritic Pain, Sputum, Wheezing Cardiovascular: negative: chest pain, palpitations, orthopnea, paroxysmal nocturnal dyspnea, edema, light headedness, other Gastrointestinal: negative: Nausea, Vomiting, Abdominal Pain, Diarrhea, Constipation, Melena, Hematochezia, Other Genitourinary: negative: Dysuria, Frequency, Incontinence, Hematuria, Retention , Other Musculoskeletal: negative: Neck Pain, Shoulder Pain, Arm Pain, Back Pain, Hand Pain, Leg Pain, Foot Pain, Other - Medications/Allergies Allergies/Adverse Reactions: Allergies Allergy/AdvReac Type Severity Reaction Status Date / Time No Known Drug Allergies Allergy Verified 03/22/19 09:37 Medications: Current Medications Acetaminophen (Tylenol) 650 mg PO Q4H PRN PRN Reason: Headache/Fever/Mild Pain (1-3) Albuterol/Ipratropium (Duoneb) 3 ml NEB [id number] PRN PRN Reason: SOB &/or Wheezing Artificial Tears (Tears Naturale) 2 drop EA EYE PRN PRN PRN Reason: Dry Eyes Aspirin (Ecotrin) 81 mg PO DAILY [facility] Last Admin: 03/30/19 09:36 Dose: 81 mg Bisacodyl (Dulcolax) 10 mg PO DAILYPRN PRN PRN Reason: Constipation Calcium Carbonate (Tums) 1,000 mg PO Q4H PRN PRN Reason: Heartburn or Indigestion Carvedilol (Coreg) 6.25 mg PO BID-[facility] Last Admin: 03/30/19 09:35 Dose: Not Given Cyanocobalamin (Vitamin B-12) 1,000 mcg PO DAILY [facility] Last Admin: 03/30/19 09:36 Dose: 1,000 mcg Enoxaparin Sodium (Lovenox) 40 mg SC 09 [facility] Last Admin: 03/30/19 09:36 Dose: 40 mg Folic Acid (Folvite) 1 mg PO DAILY [facility] Last Admin: 03/30/19 09:36 Dose: 1 mg Guaifenesin (Robitussin Sf) 200 mg PO Q4H PRN PRN Reason: Cough Guaifenesin/Dextromethorphan (Robitussin Dm) 15 ml PO Q4H PRN PRN Reason: Cough Hydralazine HCl (Apresoline) 10 mg SLOW IVP Q4H PRN PRN Reason: SBP > 180 and HR < 70 Levofloxacin (Levaquin) 750 mg PO 0600 [facility] Last Admin: 03/30/19 05:13 Dose: 750 mg Loperamide HCl (Imodium) 2 mg PO PRN PRN PRN Reason: Diarrhea/Loose Stools Nystatin (Mycostatin Powder) 1 gm TOP BID PRN PRN Reason: Topical Irritations Ondansetron HCl (Zofran) 4 mg IVP Q6H PRN PRN Reason: Nausea/Vomiting Ondansetron HCl (Zofran Odt) 4 mg PO Q6H PRN PRN Reason: Nausea/Vomiting Sodium Chloride (Flush - Normal Saline) 10 ml IVF Q12HR [facility] Last Admin: 03/30/19 09:37 Dose: 10 ml Sodium Chloride (Flush - Normal Saline) 10 ml IVF PRN PRN PRN Reason: Saline Flush Sodium Chloride ([place] Nasal [place] 0.65%) 0 ml EA NARE QIDPRN PRN PRN Reason: Nasal Congestion Last Admin: 03/28/19 08:57 Dose: 1 spr Throat Lozenges (Cepastat Lozenges) 1 ro PO Q2H PRN PRN Reason: Sore Throat Zolpidem Tartrate (Ambien) 5 mg PO HSPRN PRN PRN Reason: Insomnia
[2019-03-31] MEDS: Aspirin 81 mg Enteric Coated Tablet PO SCH (08:28)
[2019-03-31] MEDS: Cyanocobalamin (Vitamin B-12) 1,000 MCG TAB PO SCH (08:28)
[2019-03-31] MEDS: Folic Acid 1 MG TAB PO SCH (08:28)
[2019-03-31] MEDS: Carvedilol 6.25 MG TAB PO SCH (08:28)
[2019-03-31] MEDS: Enoxaparin Sodium 40 MG/0.4 ML SYRINGE SC SCH (08:32)
--- NOTE | 2019-03-31 11:25 | DIS ---
DATE OF ADMISSION: 03/22/2019 DATE OF DISCHARGE: 03/31/2019 PRIMARY CARE PHYSICIAN: Tee Villalobos MD. DISCHARGE DISPOSITION: Home with home health as well as oxygen. PRIMARY DISCHARGE DIAGNOSES: 1. Acute on chronic respiratory failure with hypoxia and hypercapnia. 2. Acute on chronic diastolic ACC AHA stage C congestive heart failure exacerbation. 3. Hyponatremia due to syndrome of inappropriate antidiuretic hormone secretion. 4. Bacteremia with Acinetobacter. SECONDARY DISCHARGE DIAGNOSES: Morbid obesity, obesity hypoventilation syndrome (Pickwickian syndrome), obstructive sleep apnea, macrocytosis, chronic lymphoedema of bilateral lower extremity, hypertension, history of alcohol abuse, tobacco abuse, chronic diastolic heart failure, chronic respiratory failure with hypoxia and hypercapnia, life-threatening obesity with BMI 74, physical deconditioning. PRIMARY PROCEDURE/OPERATION: None. RADIOLOGICAL INVESTIGATION: Chest x-ray showed cardiomegaly, pulmonary vascular congestion, pleural effusion, diffuse alveolar and interstitial opacity consistent with fluid overload status. SIGNIFICANT LABORATORY DATA: WBC 7.1, hemoglobin 13.6, platelets 204. Sodium 132, potassium 3.8, BUN 8, creatinine 0.67, calcium 9.5. Urinalysis, urine osmolarity 431, urine creatinine 141, urine sodium less than 20. Blood culture one out of two was positive for Acinetobacter. DISCHARGE MEDICATIONS: 1. Aspirin 81 mg p.o. daily. 2. Coreg 3.125 mg b.i.d. 3. Vitamin B12 of 1000 mcg p.o. daily. 4. Folic acid 1 mg daily. 5. Lasix 40 mg p.o. daily. 6. Levaquin 750 mg p.o. daily for 5 more days. CONTRAINDICATION: The patient has previous history of atrial flutter, but since then he does not have anymore atrial flutter and he does not require any chronic anticoagulation. He only requires aspirin. CODE STATUS: Full code. INPATIENT MOBILE SALES ASSISTANT: Nephrology, Dr. Edwards and Dr. Saini was following for hyponatremia. Dr. Cordero was following for diastolic heart failure. TEST RESULT PENDING ON DISCHARGE: None. ALLERGIES: NO KNOWN DRUG ALLERGIES. DISCHARGE PLAN: Posthospital, the patient will follow up with Dr. Villalobos on April 02, 2019 at 1:45 p.m. The patient will follow up with [facility]. The patient will follow up with Dr. Bairon Cordero. HOSPITAL COURSE: A 48-year-old male, who has life-threatening morbid obesity with BMI 74, who was admitted by Dr. Joseph Fry, please see his H and P for further details. On admission, the patient was found with fluid overload status. He was having bilateral interstitial infiltration on chest x-ray. He was also complaining of dyspnea and he was also requiring more oxygen to maintain his saturation. He was also having more weight gain. Clinically, he was having diastolic heart failure exacerbation that is why he was admitted to telemetry floor. Cardiology was consulted and Cardiology agreed with diuretic therapy. With diuretic therapy, his volume status improved. He was given Lasix 40 mg p.o. daily. Necessary patient education about fluid restriction, dietary education, and heart failure education given. He is instructed to follow up with [facility], and Dr. Cordero. The patient was also having hyponatremia, and that is why he was treated initially with fluid restriction, but his sodium was not improving and that is why addiction social worker started tolvaptan therapy and his sodium improved to 132. While in hospital, we have provided the patient education to avoid smoking as well as alcohol abuse. Initially, the patient was admitted to telemetry floor and subsequently, we transferred him to medical floor. This patient has been treated optimally with diuretic therapy and his volume status is now improved. Even after that, his oxygen saturation running less than 88% and with physical therapy, his oxygen saturation drops. This is related with his chronic respiratory failure from morbid obesity and life-threatening morbid obesity and obesity hypoventilation syndrome as well as sleep apnea. This patient needs home oxygen therapy upon discharge. He qualifies for home oxygen therapy. We treated him medically conservatively, but he still needs home oxygen therapy and that is why with help of correctional case records supervisor, we are arranging home oxygen therapy. If necessary, paperwork for home oxygen arrangement done. He has macrocytosis and that is why we are giving him folic acid and vitamin B12 therapy. I have seen and examined the patient bedside today. We have evaluated for his home oxygen and he qualifies for home oxygen. PHYSICAL EXAMINATION: VITAL SIGNS: Currently, temperature 97.7, pulse 83, blood pressure 105/70, saturation 91% on 4 L nasal cannula. Weight 491 pounds. GENERAL: The patient is currently alert, awake, in no obvious acute distress. HEENT: Head; normocephalic, atraumatic. NECK: Supple. No JVD. No thyromegaly. LUNGS: Clear to auscultation. Morbid obesity limiting examination. CARDIAC: S1 and S2 appears regular. No murmur. ABDOMEN: Morbid obesity limiting examination. EXTREMITIES: Bilateral lower extremity chronic lymphoedema. While in the hospital at this time, we noted that his blood culture was positive for Acinetobacter and that is why he received IV levofloxacin. On discharge, we prescribed 5 more days of levofloxacin therapy. We also noted during this admission that the patient's blood pressure was running low and that is why we reduced dose of Coreg as well as Lasix. Overall, the patient is medically stable for discharge once oxygen arrangement is done. Total time spent on discharge day 31 minutes. Job ID: [id number] MTDD
[2019-03-31 12:54] VITALS: BP 119/77; TEMP 98.3
== END 2019-03-31 14:59 | disposition home or self-care (01) | DRG 291 ==
LOC: ERS 05:55 → 2NO 09:05 → T4-B 03-27 17:39
PROVIDERS: ADMIT Internal Medicine; ATTEND Internal Medicine
DX: I13.0 Hypertensive heart and chronic kidney disease with heart failure and stage 1 through stage 4 chronic kidney disease, or unspecified chronic kidney disease (principal); I50.33 Acute on chronic diastolic (congestive) heart failure; J96.21 Acute and chronic respiratory failure with hypoxia; J96.22 Acute and chronic respiratory failure with hypercapnia; Z68.45 Body mass index [BMI] 70 or greater, adult; E87.3 Alkalosis; E22.2 Syndrome of inappropriate secretion of antidiuretic hormone; R78.81 Bacteremia; E66.2 Morbid (severe) obesity with alveolar hypoventilation; F17.210 Nicotine dependence, cigarettes, uncomplicated; E78.5 Hyperlipidemia, unspecified; J44.9 Chronic obstructive pulmonary disease, unspecified; E87.6 Hypokalemia; E87.8 Other disorders of electrolyte and fluid balance, not elsewhere classified; F10.10 Alcohol abuse, uncomplicated; I89.0 Lymphedema, not elsewhere classified; B96.89 Other specified bacterial agents as the cause of diseases classified elsewhere; N18.1 Chronic kidney disease, stage 1; Z79.899 Other long term (current) drug therapy; Z79.4 Long term (current) use of insulin; Z79.82 Long term (current) use of aspirin; E83.42 Hypomagnesemia; E11.22 Type 2 diabetes mellitus with diabetic chronic kidney disease; D63.1 Anemia in chronic kidney disease
CPT/HCPCS: 36415; 36416; 71045; 80048; 80053; 82533; 82570; 83036; 83605; 83735; 83880; 83930; 83935; 84100; 84300; 84443; 84484; 85025; 87040; 87077; 87149; 93005; 93798; 96365; 96367; 96375; J1650; J1825; J1940; J1956; J2543; J3370; J3475; J3490; J7620

== ENCOUNTER 2019-04-24 21:48 | Inpatient (IN) | payer MEDICAID, OTHER ==
[2019-04-24 22:11] LABS: Actual Bicarbonate (HCO3a) 36.4 mEq/L (22-28); Analyzer IN Cardio ER; Base Excess (BEa) 6.6 mEq/L (-2.0 to +3.0); Carboxyhemoglobin (COHb) 3.3 gm% (0.0-3.0); Hemoglobin (Hb) 14.5 g/dL (14.0-18.0); O2 Tension (PaO2) 75.7 mmHg (80.0-100.0); Potassium - ABG Lab 4.51 mmol/L (3.70-5.30); pH, Arterial 7.28 (7.35-7.45)
[2019-04-24 22:12] LABS: ALV-art Gradient 538.425 (0-20); CO2 Tension 79.1 mmHg (35.0-45.0); Puncture Site LRA
--- NOTE | 2019-04-24 23:11 | RAD ---
Exam: Chest one view HISTORY:Hypoxia. Altered mental status. Comparison: 03/22/2019 FINDINGS: Cardiac silhouette:Cardiomegaly. Pulmonary vessels: Prominent Costophrenic angles: Small bilateral pleural effusions are suspected LUNGS: Diffuse interstitial and alveolar opacities. Pneumothorax: None Osseous abnormalities: None IMPRESSION: 1. Congestive heart failure. Superimposed infiltrate cannot be excluded. 2. Continued surveillance.
[2019-04-24 23:17] LABS: #Lymphocytes 1.2 thou/uL (1.20-3.40); #Monocytes 0.7 thou/uL (0.11-0.59); #Neutrophils 3.6 thou/uL (1.40-6.50); %Basophils 0.3 % (0.0-1.0); %Eosinophils 0.6 % (0.0-10.0); %Lymphocytes 21.1 % (21.0-51.0); %Monocytes 12.7 % (0.0-10.0); %Neutrophils 65.3 % (42.0-75.0); Hemoglobin 13.3 g/dL (14.0-18.0); Mean Corpuscular HGB CONC 31.5 g/dL (32.0-36.0); Mean Corpuscular Hemoglobin 32.7 pg (27.0-31.0); Mean Platelet Volume 7.7 fL (7.4-10.4); Platelet Count 202 thou/uL (130-400); RBC Distribution Width 16.6 % (11.5-14.5); Red Blood Cell (RBC) Count 4.06 mill/uL (4.70-6.10); White Blood Cell (WBC) Count 5.5 thou/uL (4.8-10.8)
[2019-04-24] MEDS ORDERED: Acetaminophen 325 MG TAB PO PRN (23:42)
[2019-04-24] MEDS ORDERED: Acetaminophen 650 MG Suppository PR PRN (23:42)
[2019-04-24] MEDS ORDERED: Ondansetron ODT 4 MG TAB PO PRN (23:42)
[2019-04-24] MEDS ORDERED: Ondansetron PF 4 MG/2 ML Vial IVP PRN (23:42)
[2019-04-24] MEDS ORDERED: Nitroglycerin 2% Ointment 1 INCH/1 GM Packet ONE (23:48)
[2019-04-24] MEDS ORDERED: Furosemide 40 MG/4 ML VIAL ONE (23:48)
[2019-04-24] MEDS ORDERED: Metoprolol Tartrate 25 MG TAB ONE (23:48)
[2019-04-24] MEDS ORDERED: Metoprolol Tartrate 5 MG/5 ML VIAL ONE (23:50)
[2019-04-25 00:05] LABS: ALT (SGPT) 36 U/L (8-55); AST (SGOT) 63 U/L (5-34); Albumin 3.2 g/dL (3.5-5.0); Alkaline Phosphatase 97 U/L (40-150); Anion Gap 20 mmol/L (10-20); BUN (Urea Nitrogen) 22 mg/dL (8.9-20.6); Bilirubin, Total 1.9 mg/dL (0.2-1.2); Calc. Creatinine Clearance 0 mL/min (70-130); Calcium 8.8 mg/dL (7.8-10.44); Carbon Dioxide 31 mmol/L (22-29); Chloride 79 mmol/L (98-107); Estimated GFR-MDRD 23; Globulin 4.4 g/dL (2.4-3.5); Glucose 84 mg/dL (70-105); Potassium 4.6 mmol/L (3.5-5.1); Protein, Total 7.6 g/dL (6.0-8.3); Sodium 125 mmol/L (136-145)
[2019-04-25 00:15] LABS: CKMB 1.7 ng/mL (0-6.6)
[2019-04-25 00:36] LABS: Bacteria/HPF 1+ HPF (None Seen); Bilirubin 1+ (Negative); Blood, Urine Trace (Negative); Clarity Turbid (Clear); Glucose, Urine (Dipstick) Normal (Negative); Leukocyte Negative Leu/uL (Negative); Nitrite Negative (Negative); Protein, Urine (Dipstick) 50 mg/dL (Neg-Trace)
[2019-04-25] MEDS ORDERED: Rocuronium Bromide 50 MG/5 ML VIAL ONE (00:51)
[2019-04-25] MEDS ORDERED: Ketamine 50 MG/ML (10ML VIAL) ONE (00:51)
[2019-04-25] MEDS ORDERED: Cefepime 2 GM in Sodium Chloride 0.9% 100 ML IVPB SCH (01:00)
[2019-04-25 01:51] LABS: pH, Arterial 7.32 (7.35-7.45)
[2019-04-25 01:52] LABS: Actual Bicarbonate (HCO3a) 35.2 mEq/L (22-28); Base Excess (BEa) 6.3 mEq/L (-2.0 to +3.0); CO2 Tension 70.6 mmHg (35.0-45.0); O2 Tension (PaO2) 56.4 mmHg (80.0-100.0)
[2019-04-25 01:53] LABS: Analyzer IN Cardio ER; Calcium, Ionized 1.14 mmol/L (1.12-1.30); Hemoglobin (Hb) 14.4 g/dL (14.0-18.0); Puncture Site LRAD
[2019-04-25] MEDS: Azithromycin 500 MG in Sodium Chloride 0.9% 250 ML 250 ML IVPB SCH ×2 (02:05→23:55)
[2019-04-25] MEDS: methylPREDNISolone Sod Succ 40 MG VIAL IVP SCH ×5 (02:13→23:56)
[2019-04-25] MEDS ORDERED: Ventilator Sedation Protocol 1 EACH FS ONE (02:14)
[2019-04-25] MEDS ORDERED: Digoxin 0.5 MG/2 ML AMP SLOW IVP SCH (02:15)
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
[2019-04-25] MEDS ORDERED: Fentanyl BOLUS 250 ML IVPB PRN (02:23)
[2019-04-25] MEDS ORDERED: Propofol BOLUS 1,000 MG/100 ML VIAL IV PRN (02:23)
[2019-04-25] MEDS ORDERED: DISCONTINUE PREVIOUS NARCOTIC PAIN MEDICATIONS AND BENZODIAZEPINES FS SCH (02:23)
[2019-04-25] MEDS: Propofol 1,000 MG/100 ML VIAL IV PRN ×9 (02:33→22:55)
[2019-04-25] MEDS ORDERED: Vancomycin HCl 1 GM in Premix Bag 1 BAG IVPB SCH ×2 (03:00→09:00)
[2019-04-25 03:32] LABS: #Eosinphils 0.1 thou/uL (0.0-0.7); #Lymphocytes 1.8 thou/uL (1.20-3.40); #Neutrophils 4.2 thou/uL (1.40-6.50); %Basophils 0.1 % (0.0-1.0); %Eosinophils 0.8 % (0.0-10.0); %Lymphocytes 25.1 % (21.0-51.0); %Monocytes 14.8 % (0.0-10.0); %Neutrophils 59.2 % (42.0-75.0); Hemoglobin 13.2 g/dL (14.0-18.0); Mean Corpuscular HGB CONC 31.1 g/dL (32.0-36.0); Mean Corpuscular Hemoglobin 32.3 pg (27.0-31.0); Mean Platelet Volume 7.8 fL (7.4-10.4); Platelet Count 189 thou/uL (130-400); RBC Distribution Width 16.5 % (11.5-14.5); Red Blood Cell (RBC) Count 4.08 mill/uL (4.70-6.10); White Blood Cell (WBC) Count 7.1 thou/uL (4.8-10.8)
[2019-04-25 03:45] LABS: Anion Gap 19 mmol/L (10-20); BUN (Urea Nitrogen) 21 mg/dL (8.9-20.6); Calc. Creatinine Clearance 100 mL/min (70-130); Carbon Dioxide 32 mmol/L (22-29); Chloride 79 mmol/L (98-107); Estimated GFR-MDRD 24; Glucose 82 mg/dL (70-105); Potassium 4.6 mmol/L (3.5-5.1); Sodium 125 mmol/L (136-145)
[2019-04-25 03:55] LABS: Critical Call Chem Troponin I RESULT DECREASING; Troponin I 0.314 ng/mL (< 0.028)
[2019-04-25 08:34] LABS: Actual Bicarbonate (HCO3a) 32.4 mEq/L (22-28); Base Excess (BEa) 5.9 mEq/L (-2.0 to +3.0); CO2 Tension 54.6 mmHg (35.0-45.0); Hemoglobin (Hb) 13.9 g/dL (14.0-18.0); O2 Tension (PaO2) 64.9 mmHg (80.0-100.0); pH, Arterial 7.39 (7.35-7.45)
[2019-04-25 08:35] LABS: Calcium, Ionized 1.09 mmol/L (1.12-1.30); Carboxyhemoglobin (COHb) 2.5 gm% (0.0-3.0); Potassium - ABG Lab 4.43 mmol/L (3.70-5.30)
[2019-04-25 08:36] LABS: Puncture Site RRA
--- NOTE | 2019-04-25 08:43 | RAD ---
RADIOGRAPH CHEST 1 VIEW: DATE: 04/25/2019 TIME: 1:19 AM HISTORY: 48-year-old male with dyspnea, hypoxia, and pneumonia COMPARISON: 04/24/2019 11:05 PM FINDINGS: New endotracheal tube with distal tip 1.5 cm superior to evi. New NG tube in stomach. Bilateral pl eural effusions. Diffuse mixed interstitial and alveolar pulmonary densities throughout both lungs. No large pneumothorax visualized. No interval change in the appearance of the lungs. IMPRESSION: 1. Interval placement of endotracheal tube and esophagogastric tube. 2. No interval change in the appearance of lungs: Diffuse bilateral mixed interstitial and alveolar i nfiltrates which probably represent pulmonary edema (although it is difficult to rule out pneumonia completely) and bilateral pleural effusions, at least small.
[2019-04-25] MEDS ORDERED: Enoxaparin Sodium 40 MG/0.4 ML SYRINGE SC SCH (09:00)
[2019-04-25] MEDS ORDERED: Enoxaparin Sodium 30 MG/0.3 ML SYRINGE SC SCH (09:00)
[2019-04-25] MEDS: Lorazepam 2 MG/ML VIAL SLOW IVP PRN ×2 (10:10→15:24)
[2019-04-25] MEDS: Morphine 2 MG/ML SYRINGE SLOW IVP PRN ×2 (10:10→15:24)
--- NOTE | 2019-04-25 13:24 | PRG ---
DATE OF SERVICE: 04/25/2019 SUBJECTIVE: He is intubated and sedated. He is in intensive care unit, bed A9. OBJECTIVE: VITAL SIGNS: Blood pressure is 129/76, pulse is 104, respiratory rate is 24, and O2 saturation is 93% on FiO2 of 80%. GENERAL: He is morbidly obese man with weight of 488 pounds and BMI of 68. HEENT: His pupils are small, somewhat responsive to light. Sclerae are nonicteric. Conjunctivae are pinkish. He is orally intubated. NECK: Obese. LUNGS: Breath sounds diminished at both bases. HEART: S1 and S2 distant. No S3. No S4. ABDOMEN: Obese and soft. EXTREMITIES: Lymphedema, massive, both lower extremities. Pulses are not palpable. NEUROLOGIC: Postponed since he is sedated. LABORATORY DATA: Showed white count of 7.1, hemoglobin of 13.2, hematocrit 42.4, platelet count is 189,000. ABGs showed pH of 7.39, pO2 is 64.9, pCO2 is 54.6, base excess is 5.9. Sodium of 125, potassium 4.6, chloride 79, CO2 of 32, BUN 21, creatinine 2.87, glucose 82, estimated GFR is 24. Second troponin I came back at 0.314. Procalcitonin 0.11. Chest x-ray personally reviewed by me showed bilateral diffuse interstitial and alveolar pulmonary densities throughout both lungs and bilateral pleural effusion. IMPRESSION: 1. Respiratory failure, [id number], hypoxic and hypercapnic, most likely related to congestive heart failure exacerbation, less likely pneumonia. We will cover for both. 2. Acute congestive heart failure exacerbation. 3. Morbid obesity. 4. Hyponatremia. He has a history of syndrome of inappropriate antidiuretic hormone secretion in the past. This could be related to his congestive heart failure. We will continue monitoring. 5. Acute kidney injury with creatinine up to 2.9 with a previous normal kidney function. We will ask Nephrology to be involved in his care. 6. Mildly elevated troponin of 0.3 x2. This is most likely related to his congestive heart failure. 7. Hyperlipidemia. PLAN: He is going to remain in intensive care unit on the ventilator. He will be covered with broad-spectrum antibiotics, IV steroids, and intensive care. Job ID: [id number]
--- NOTE | 2019-04-25 18:26 | CON ---
DATE OF CONSULTATION: 04/25/2019 Time is 30 minutes. HISTORY OF PRESENT ILLNESS: The patient is an unfortunate 48-year-old gentleman who suffered from morbid obesity and atrial flutter, who presented with respiratory failure, noted to be in a rapid irregular heart rhythm. The patient has a history of atrial flutter. He has been admitted on several occasions with congestive heart failure. This is secondary to diastolic dysfunction. He underwent an echocardiogram which revealed normal left ventricular systolic function. The patient unfortunately suffers from morbid obesity, presented once again with respiratory failure. He was noted to be in a rapid irregular heart rhythm. The patient was intubated and sedated and unable to give a coherent history. PAST MEDICAL HISTORY: 1. Atrial flutter. 2. Morbid obesity. 3. Congestive heart failure, secondary to diastolic dysfunction. 4. Diabetes mellitus. 5. COPD. 6. Lymphedema. PAST SURGICAL HISTORY: Appendectomy, tonsillectomy, and ankle surgery. SOCIAL HISTORY: He has a past history of tobacco abuse. MEDICATIONS: See nursing list. PHYSICAL EXAMINATION: GENERAL AND VITAL SIGNS: Intubated gentleman who is sedated with a blood pressure 145/82. NECK: Showed no jugular venous distention. LUNGS: Have coarse breath sounds bilateral. HEART: Irregular rate and rhythm. ABDOMEN: Markedly distended. EXTREMITIES: Show 4+ edema. LABORATORY DATA: White blood cell count 7.1, hemoglobin 13.2, hematocrit 42.4, and platelets 189. Sodium 125, potassium 4.6, chloride 79, bicarb 32, BUN 21, and creatinine was 2.87. Troponin level is 0.314. IMPRESSION: 1. Respiratory failure. 2. Congestive heart failure, secondary to diastolic dysfunction. 3. Atrial fibrillation/ flutter. 4. Acute renal failure. 5. Diabetes mellitus. 6. Morbid obesity. PLAN: This gentleman presented with respiratory failure and atrial flutter. From a cardiac standpoint, we will place the patient on IV Cardizem. The patient's prognosis is very guarded. Job ID: [id number] [facility]
--- NOTE | 2019-04-25 19:09 | CON ---
DATE OF CONSULTATION: REASON FOR CONSULTATION: Hyponatremia. HISTORY OF PRESENT ILLNESS: This is a well-known 48-year-old gentleman, presented to the hospital with altered mentation and respiratory failure. The patient's creatinine has increased from less than 1 to more than 2. The patient can give no further history. PAST MEDICAL HISTORY: Significant for COPD, hypertension, and morbid obesity. REVIEW OF SYSTEMS: Unobtainable. FAMILY HISTORY: Unobtainable. PAST SURGICAL HISTORY: Significant for appendectomy and tonsillectomy. PSYCHIATRIC HISTORY: None. SOCIAL HISTORY: The patient drinks alcohol. ALLERGIES: REVIEWED. MEDICATIONS: Home medication list, reviewed. Hospital medication, reviewed. PHYSICAL EXAMINATION: GENERAL: The patient is resting. VITAL SIGNS: Afebrile, breathing 16, blood pressure was 104/54, pulse 138. GENERAL APPEARANCE AND MENTAL STATUS: Fair. HEAD/NECK: Normocephalic. Atraumatic. EYES: EOMI. No deformity. EARS: Clear. No ulcers. NOSE: Intact. No lesions. MOUTH: Clear. No discharge. THROAT: Clear. No exudate. LUNGS: Clear. No crackles. CARDIAC: S1, S2. No rub. ABDOMEN: Benign. Bowel sounds positive. GENITALIA/RECTUM: Noguera absent. BACK/EXTREMITIES: Edema 0+. NEUROLOGICAL: The patient is resting. SKIN: LYMPHATICS: LABORATORY DATA: Show hemoglobin 13.2. Creatinine is 2.8. ASSESSMENT AND PLAN: 1. Acute kidney injury with chronic kidney disease, stage 4 due to acute tubular necrosis due to cardiopulmonary syndrome. 2. Hyponatremia due to renal failure. Recommend fluid restriction. Medication based on GFR, appropriate. 3. Morbid obesity. Overall prognosis is poor. Job ID: [id number] [facility]
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
[2019-04-26] MEDS: Propofol 1,000 MG/100 ML VIAL IV PRN ×7 (01:15→22:25)
[2019-04-26] MEDS: Cefepime 2 GM in Sodium Chloride 0.9% 100 ML IVPB SCH (02:24)
[2019-04-26 04:34] LABS: #Monocytes 0.5 thou/uL (0.11-0.59); #Neutrophils 2.6 thou/uL (1.40-6.50); %Basophils 0.3 % (0.0-1.0); %Eosinophils 0.4 % (0.0-10.0); %Lymphocytes 23.8 % (21.0-51.0); %Monocytes 11.5 % (0.0-10.0); Hemoglobin 11.5 g/dL (14.0-18.0); Mean Corpuscular HGB CONC 31.8 g/dL (32.0-36.0); Mean Corpuscular Hemoglobin 32.5 pg (27.0-31.0); Mean Platelet Volume 7.9 fL (7.4-10.4); Platelet Count 123 thou/uL (130-400); RBC Distribution Width 16.7 % (11.5-14.5); Red Blood Cell (RBC) Count 3.54 mill/uL (4.70-6.10)
[2019-04-26 05:11] LABS: Anion Gap 14 mmol/L (10-20); BUN (Urea Nitrogen) 21 mg/dL (8.9-20.6); Calc. Creatinine Clearance 169 mL/min (70-130); Calcium 6.5 mg/dL (7.8-10.44); Carbon Dioxide 25 mmol/L (22-29); Chloride 93 mmol/L (98-107); Estimated GFR-MDRD 44; Glucose 89 mg/dL (70-105); Potassium 4.1 mmol/L (3.5-5.1); Sodium 128 mmol/L (136-145)
[2019-04-26] MEDS: methylPREDNISolone Sod Succ 40 MG VIAL IVP SCH ×4 (05:22→23:16)
[2019-04-26 08:13] LABS: CO2 Tension 48.3 mmHg (35.0-45.0); pH, Arterial 7.44 (7.35-7.45)
[2019-04-26 08:14] LABS: Actual Bicarbonate (HCO3a) 32.1 mEq/L (22-28); Base Excess (BEa) 6.7 mEq/L (-2.0 to +3.0); Calcium, Ionized 1.08 mmol/L (1.12-1.30); Carboxyhemoglobin (COHb) 1.7 gm% (0.0-3.0); Hemoglobin (Hb) 14.9 g/dL (14.0-18.0); Potassium - ABG Lab 4.67 mmol/L (3.70-5.30); Puncture Site LR
[2019-04-26 08:15] LABS: ALV-art Gradient 453.025 (0-20)
[2019-04-26] MEDS: Morphine 2 MG/ML SYRINGE SLOW IVP PRN (12:28)
--- NOTE | 2019-04-26 12:30 | PRG ---
DATE OF SERVICE: 04/26/2019 SUBJECTIVE: A 48-year-old gentleman being seen for acute kidney injury. The patient remains intubated. OBJECTIVE: CONSTITUTIONAL: The patient is resting. VITAL SIGNS: Afebrile, pulse 101, breathing 16, and blood pressure 138/79. See above. Awake, alert, in no acute distress. GENERAL APPEARANCE AND MENTAL STATUS: Fair. HEAD/NECK: Normocephalic. Atraumatic. EYES: EOMI. No deformity. EARS: Clear. No ulcers. NOSE: Intact. No lesions. MOUTH: Clear. No discharge. THROAT: Clear. No exudate. LUNGS: Clear. No crackles. CARDIAC: S1, S2. No rub. ABDOMEN: Benign. Bowel sounds positive. GENITALIA/RECTUM: Noguera absent. BACK/EXTREMITIES: Edema 0+. NEUROLOGICAL: The patient is comatose. SKIN: LYMPHATICS: LABORATORY DATA: Labs showed creatinine 1.6. ASSESSMENT AND PLAN: 1. Acute kidney injury, resolved. 2. Hypertension, stable. 3. Hyponatremia, stable. Please recommend fluid restriction. I will sign off on this patient. Please reconsult as needed. Job ID: [id number]
--- NOTE | 2019-04-26 14:26 | PRG ---
DATE OF SERVICE: 04/26/2019 SUBJECTIVE: The patient is seen and examined at the bedside. He is still on propofol, but lower dose, so he wakes up from time to time. His is present during my visit at his bedside. OBJECTIVE: VITAL SIGNS: Blood pressure is 100/54, pulse is 110 beats per minute, respiratory rate is 32, and O2 saturation 91%. He is on ventilator. FiO2 is still 80%. HEENT: His head is atraumatic and normocephalic. Pupils somewhat small, but still respond to light to some extent. LUNGS: Breath sounds diminished at both bases. HEART: S1 and S2, distant. No S3. No S4. ABDOMEN: Very obese. Bowel sounds present, sluggish. EXTREMITIES: Massive lymphedema. Pulses are not palpable. NEUROLOGICAL: Postponed since he is sedated. LABORATORY DATA: Labs showed white count of 4.0, hemoglobin 11.5, hematocrit 36.3, MCV 102, and platelet count is 123. ABGs showed a pH of 7.44, pCO2 of 48.3, pO2 of 57.0, and base excess is 6.7. Sodium of 128, potassium 4.1, chloride 93, CO2 of 25, BUN 21, creatinine 1.69, calcium 6.5, and procalcitonin 0.11. Microbiology, two blood cultures negative. IMPRESSION: 1. Respiratory failure, acute on chronic, hypoxic and hypercapnic. His procalcitonin came back normal, so it is less likely infectious process, although there is possible pneumonia. It is very difficult to interpret his x-rays, secondary to his size. 2. Possible acute congestive heart failure exacerbation. 3. Morbid obesity, to the point that is life-threatening. 4. Hyponatremia. Worship Director, Dr. Saini, said that the patient's creatinine is back to baseline. At this point, it is improved to 1.6. 5. Atrial flutter. Cardiology consulted. He was started on Cardizem drip. His heart rate is somewhat better controlled around 110. 6. Hyperlipidemia. PLAN: He will remain on the ventilator. He requires high dose of oxygen. His FiO2 is still around 80%. He will stay on azithromycin and vancomycin. We will continue methylprednisolone IV push every 6 hours. We will continue Cardizem drip. We will continue cefepime 2 g every 24 hours and continue DuoNeb q.4 hours. Prognosis is very poor. Job ID: [id number]
--- NOTE | 2019-04-26 15:19 | PRG ---
DATE OF SERVICE: 04/26/2019 SUBJECTIVE: Nikita Morgan sedated for mechanical ventilation. OBJECTIVE: VITAL SIGNS: Heart rate is 104, blood pressure 115/73, respiratory rate is 20. NECK: Unchanged. LUNGS: Clear. HEART: Regular rhythm. ABDOMEN: Soft. EXTREMITIES: Without asymmetry. 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 LABORATORY DATA: White count 4.0, hemoglobin 11.5, platelets 123. Sodium 128, potassium 4.1, chloride 93, bicarb 25, BUN 29, creatinine 1.69. Intake and outputs, positive 573. IMPRESSION: 1. Respiratory failure. 2. Obesity hypoventilation syndrome. His is at bedside. He says he rarely wears his CPAP. 3. Ongoing tobacco use. 4. Life-threatening obesity with documented at least 60 pounds weight gain in the last few years based on weights available in the computer system. 5. Acute on chronic kidney disease. 6. Diastolic dysfunction. 7. Atrial flutter. 8. History of diabetes. His says that he would want to anything necessary to continue living, but I have pointed out that he is not doing any of the medical things necessary that he has control over to continue living. He needs to be on serious diet, fluid restricted with careful monitoring in his renal function and also probably would be best served with a tracheostomy. She wants to think about this. We will continue current supportive care. CRITICAL CARE TIME: 30 minutes. Job ID: [id number]
[2019-04-26] MEDS: Heparin 5,000 UNITS/ML VIAL SC SCH ×2 (15:36→20:28)
[2019-04-26] MEDS ORDERED: Calcium Chloride 1 GM/10 ML Abboject SYRINGE IVP SCH (16:15)
[2019-04-26] MEDS ORDERED: Calcium Chloride 13.6 MEQ in Sodium Chloride 0.9% 100 ML IVPB SCH (16:15)
[2019-04-26] MEDS: Lorazepam 2 MG/ML VIAL SLOW IVP PRN (20:27)
[2019-04-26] MEDS: Azithromycin 500 MG in Sodium Chloride 0.9% 250 ML 250 ML IVPB SCH (23:15)
[2019-04-27] MEDS: Propofol 1,000 MG/100 ML VIAL IV PRN ×9 (01:30→22:34)
[2019-04-27] MEDS: Cefepime 2 GM in Sodium Chloride 0.9% 100 ML IVPB SCH (02:41)
[2019-04-27 02:59] LABS: Vancomycin, Trough 18.8 ug/mL
[2019-04-27] MEDS: methylPREDNISolone Sod Succ 40 MG VIAL IVP SCH ×3 (05:42→17:26)
[2019-04-27] MEDS: Heparin 5,000 UNITS/ML VIAL SC SCH ×3 (08:15→21:22)
[2019-04-27 08:20] LABS: Actual Bicarbonate (HCO3a) 33.1 mEq/L (22-28); Base Excess (BEa) 8.6 mEq/L (-2.0 to +3.0); CO2 Tension 45.3 mmHg (35.0-45.0); Calcium, Ionized 1.07 mmol/L (1.12-1.30); Carboxyhemoglobin (COHb) 1.2 gm% (0.0-3.0); Hemoglobin (Hb) 13.2 g/dL (14.0-18.0); Potassium - ABG Lab 4.92 mmol/L (3.70-5.30); pH, Arterial 7.48 (7.35-7.45)
[2019-04-27 08:22] LABS: ALV-art Gradient 458.275 (0-20); O2 Tension (PaO2) 55.5 mmHg (80.0-100.0); Puncture Site LRA
--- NOTE | 2019-04-27 10:52 | PDOC.PALCO ---
Palliative Care Consult - Consult Details Requesting Physician: Dr Jay Reason for Consult: assistance with communication prognosis/disease, complex decision-making Family Members Present: Patient sister Linda - Pertinent HPI Patient was recently discharged from the hospital secondary to pneumonia. Patient was at home with his partner, Bhumi, and became increasingly weak and confused. Patient presented to the ER with AMS and subsequently admitted secondary to hypercapnic and hypoxic respiratory failure. - Pertinent PMH Morbid Obesity, HTN, Hyperlipidemia, CKD, Atrial fib. - Social History Smoking Status: Current every day smoker Smoking: cigarettes Alcohol Use: daily Living Situation: with partner - Medications MAR Reviewed: Yes - Allergies Allergies/Adverse Reactions: Allergies Allergy/AdvReac Type Severity Reaction Status Date / Time No Known Drug Allergies Allergy Verified 03/22/19 09:37 - Subjective Patient nonresponsive, intubated and sedated. Sister at bedside. When spoken to patient furrows brow. - Objective Vital Signs: Vital Signs - Most Recent Temp Pulse Resp BP Pulse Ox 97.7 F 73 14 146/77 H 90 L 04/27/19 08:00 04/27/19 08:04 04/27/19 10:00 04/27/19 08:04 04/27/19 07:42 Palliative Performance Scale: 20 - Physical Exam Deviation from normal: Morbidily obese, sedated HEENT: moist MMs Gastrointestinal: hypoactive bowel sounds Musculoskeletal: edema present Deviation from normal: sedated Deviation from normal: Stasis changes to lower extremities, ichthyosis to lower extremities - Problem List (1) Palliative care encounter Code(s): Z51.5 - ENCOUNTER FOR PALLIATIVE CARE Current Visit: Yes Status: Acute - Plan/Recommendations Plan: Patient sister provided insight into patient history. Patient lives in a [facility] trailer with limited space. Mr Morgan is a daily drinker and smoker and animals in home. Morbidly obese. Lives with life partner Bhumi for the past 20 years, both with limited income on disability. After patient recent discharge from hospital he was unable to follow up with dr marinelli secondary to no transportation, and unable to access transportation arranged as he could not travel alone and his partner was not allowed to travel with him. Patient has had CPAP at home but did not use. *Sister states family is waiting on Cardiology echo. (Discussed that previous EF may remain unchanged or only minimally changed and patient has Diastolic heart failure) *Sister states family is hopeful that patient can wake up slightly to make decision if he desires to have the trach placed *assisted sister Linda states she is hopeful that Mr Eddie and his partner Bhumi will move to [facility] to be closer to family support *Dr Jay, Akil Almaraz Palliative Care RN, and RNs caring for patient notified of plan. Will follow up this afternoon for further discussion on trajectory of disease processes and potential realistic outcomes. [80] minutes spent on this encounter with >50% of the time in counseling and coordination of care. Thank you for this very appropriate consult.
[2019-04-27] MEDS: Morphine 2 MG/ML SYRINGE SLOW IVP PRN (12:26)
[2019-04-27 14:33] LABS: ALT (SGPT) 27 U/L (8-55); Alkaline Phosphatase 71 U/L (40-150)
[2019-04-27 14:36] LABS: AST (SGOT) 43 U/L (5-34); Albumin 3.2 g/dL (3.5-5.0); Anion Gap 20 mmol/L (10-20); BUN (Urea Nitrogen) 34 mg/dL (8.9-20.6); Bilirubin, Total 1.8 mg/dL (0.2-1.2); Calc. Creatinine Clearance 118 mL/min (70-130); Calcium 9.1 mg/dL (7.8-10.44); Carbon Dioxide 26 mmol/L (22-29); Chloride 83 mmol/L (98-107); Estimated GFR-MDRD 29; Globulin 4.2 g/dL (2.4-3.5); Glucose 125 mg/dL (70-105); Potassium 6.3 mmol/L (3.5-5.1); Protein, Total 7.4 g/dL (6.0-8.3); Sodium 123 mmol/L (136-145)
--- NOTE | 2019-04-27 14:37 | PRG ---
DATE OF SERVICE: 04/27/2019 SUBJECTIVE: The patient is seen and examined at the bedside. The patient's is present at the bedside. OBJECTIVE: GENERAL: He is orally intubated, sedated. HEENT: His pupils are relatively small. Sclerae are nonicteric. Oral mucosa not examined. LUNGS: Breath sounds diminished at both bases with some crackles at both bases. HEART: S1 and S2. Tachycardic. No S3. No S4. Distant. ABDOMEN: Obese. Bowel sounds sluggish. EXTREMITIES: Massive lymphedema, both lower extremities. NEUROLOGICAL: Postponed since he is under sedation. LABORATORY DATA: Pending. IMPRESSION: 1. Respiratory failure, acute on chronic, hypoxic and hypercapnic. 2. Possible acute congestive heart failure exacerbation, mostly diastolic. 3. Morbid obesity, life-threatening. 4. Hyponatremia. 5. Atrial flutter, on Cardizem drip 15 mg/hour and rate under better control. 6. Hyperlipidemia. PLAN: He remained on the ventilator. He still requires high FiO2 of 80%. His urine output is slowing down and have to use some Lasix today to improve his urine output. We will continue his DuoNeb, antibiotics, and supportive care. Job ID: [id number]
[2019-04-27] MEDS ORDERED: Furosemide 40 MG/4 ML VIAL SLOW IVP SCH (16:00)
[2019-04-27 20:24] LABS: Anion Gap 19 mmol/L (10-20); BUN (Urea Nitrogen) 36 mg/dL (8.9-20.6); Calc. Creatinine Clearance 126 mL/min (70-130); Calcium 9.1 mg/dL (7.8-10.44); Carbon Dioxide 30 mmol/L (22-29); Chloride 80 mmol/L (98-107); Estimated GFR-MDRD 31; Glucose 125 mg/dL (70-105); Potassium 5.3 mmol/L (3.5-5.1); Sodium 124 mmol/L (136-145)
[2019-04-27] MEDS: Lorazepam 2 MG/ML VIAL SLOW IVP PRN (21:25)
--- NOTE | 2019-04-27 22:55 | PRG ---
DATE OF SERVICE: 04/27/2019 SUBJECTIVE: Patient was seen and examined at bedside and overnight events noted. remains intubated. OBJECTIVE: GENERAL: This is a morbidly obese male, seen in ICU, intubated. VITAL SIGNS: Temperature 97.0, pulse 96, respiratory rate 18, blood pressure 148/72. HEENT: Intubated. CV: S1 and S2 heard. RESPIRATORY: Clear. GI: Abdomen obese. MUSCULOSKELETAL: +2 edema. DERMATOLOGIC: No skin lesions. NEUROLOGICAL: Intubated. LABORATORY DATA: Hemoglobin is 7.5. Potassium 5.3, BUN is 36, creatinine is 2.27. ASSESSMENT AND PLAN: 1. Acute kidney injury. Renal function getting worse with no significant urine output, poor prognosis. 2. Elevated BUN. 3. Hyponatremia, limit fluid intake. 4. Hyperkalemia, seems to be better this afternoon. 5. Hypochloremia. 6. Metabolic alkalosis. 7. Hypoalbuminemia. 8. Morbid obesity. 9. Anemia. 10. Acute hypoxic respiratory failure. Monitor labs. No acute indication for dialysis. The patient is high risk for dialysis. We will talk with his . We will follow. Job ID: [id number] [facility]
[2019-04-28] MEDS: Propofol 1,000 MG/100 ML VIAL IV PRN ×8 (01:37→20:31)
[2019-04-28] MEDS: Azithromycin 500 MG in Sodium Chloride 0.9% 250 ML 250 ML IVPB SCH (01:38)
[2019-04-28] MEDS: methylPREDNISolone Sod Succ 40 MG VIAL IVP SCH ×2 (01:38→05:23)
[2019-04-28] MEDS: Cefepime 2 GM in Sodium Chloride 0.9% 100 ML IVPB SCH (03:23)
[2019-04-28 04:55] LABS: ALT (SGPT) 29 U/L (8-55); AST (SGOT) 48 U/L (5-34); Albumin 3.3 g/dL (3.5-5.0); Alkaline Phosphatase 70 U/L (40-150); Anion Gap 21 mmol/L (10-20); BUN (Urea Nitrogen) 39 mg/dL (8.9-20.6); Bilirubin, Total 1.8 mg/dL (0.2-1.2); Calc. Creatinine Clearance 109 mL/min (70-130); Calcium 8.9 mg/dL (7.8-10.44); Carbon Dioxide 26 mmol/L (22-29); Chloride 82 mmol/L (98-107); Estimated GFR-MDRD 26; Globulin 4.1 g/dL (2.4-3.5); Glucose 127 mg/dL (70-105); Potassium 6.4 mmol/L (3.5-5.1); Protein, Total 7.4 g/dL (6.0-8.3); Sodium 123 mmol/L (136-145)
[2019-04-28 07:25] LABS: Actual Bicarbonate (HCO3a) 32.5 mEq/L (22-28); Base Excess (BEa) 8.1 mEq/L (-2.0 to +3.0); CO2 Tension 43.7 mmHg (35.0-45.0); Carboxyhemoglobin (COHb) 1.3 gm% (0.0-3.0); Hemoglobin (Hb) 14.4 g/dL (14.0-18.0); O2 Tension (PaO2) 50.6 mmHg (80.0-100.0); pH, Arterial 7.49 (7.35-7.45)
[2019-04-28 07:26] LABS: ALV-art Gradient 429.525 (0-20); Calcium, Ionized 1.07 mmol/L (1.12-1.30); Puncture Site LRA
[2019-04-28] MEDS: Heparin 5,000 UNITS/ML VIAL SC SCH ×3 (08:03→21:30)
--- NOTE | 2019-04-28 08:11 | RAD ---
Chest AP view INDICATION: Fluid overload COMPARISON: Prior exam dated April 25, 2019 FINDINGS: Lungs:Perihilar airspace opacities persist Cardiac silhouette pulmonary vasculature:Cardiomegaly pulmonary vascular congestion persists Pleural spaces:Small bilateral pleural effusions are stable Upper abdomen:No abnormality seen. Osseous structures: No acute osseous abnormality. Additional findings:ET tube and gastric catheter are unchanged. No pneumothorax is demonstrated. IMPRESSION: Stable exam
[2019-04-28] MEDS ORDERED: Dextrose 50% Abboject 50 ML SYRINGE SLOW IVP PRN (09:33)
[2019-04-28] MEDS ORDERED: Insulin Regular 300 UNITS/3 ML VIAL SC SCH (09:45)
[2019-04-28] MEDS ORDERED: Insulin Regular 300 UNITS/3 ML VIAL IVP SCH (11:00)
--- NOTE | 2019-04-28 11:01 | PRG ---
DATE OF SERVICE: 04/28/2019 TIME SPENT: 45 minutes of critical care time. SUBJECTIVE: The case was reviewed in detail. I had an extensive discussion with the patient's and sister at the bedside. The patient is a 48-year-old morbidly obese male, who was admitted to this facility on 04/25 with acute respiratory failure related to anasarca and fluid overload. The patient has been troubled with oliguria and needs dialysis. The family is not sure what they want to do. He remains intubated on mechanical ventilation. OBJECTIVE: VITAL SIGNS: Temperature 97, pulse 75, blood pressure 130/74, and O2 saturation 91%. His current ventilator settings are bilevel rate 14, high pressure 27, low pressure 13, inspiratory time 1.7 seconds, and FiO2 of 75% with a pressure support of 10. HEENT: Intubated with a 7.5 endotracheal tube orally. NECK: Obese. LUNGS: Diminished breath sounds throughout with crackles. CARDIAC: S1 and S2, regular without audible murmur. ABDOMEN: Morbidly obese, soft. EXTREMITIES: 4+ edema from the thighs downward. LABORATORY DATA: Sodium 123, potassium 6.4, chloride 82, CO2 of 26, BUN 39, creatinine 2.6, glucose 127. AST 48, ALT 29. PH 7.49, pCO2 of 43, pO2 of 50 on the above ventilator settings. White blood cell count 4, hematocrit 36.3, and platelet count 123. Chest x-ray shows diffuse bilateral infiltrates. ASSESSMENT: 1. Life-threatening hypoxemia as a result of anasarca and pulmonary edema. I do not suspect that this is pneumonia. 2. Morbid obesity. 3. Acute renal failure with severe oliguria. 4. History of alcohol and tobacco use. PLAN: I had a long blunt discussion with the family discussing the patient's prognosis. It is my opinion that dialysis needed for fluid overload and management of his hyperkalemia. I do not think he needs to be on antibiotics because I doubt he is infected. I also think the steroids can be stopped. I told the family that the patient would not be weanable until a considerable amount of fluid was removed. I told him I could not guarantee that dialysis will fix this situation. I am somewhat concerned of the long-term ramifications of interventions such as dialysis or tracheostomy. I do not think the family is going to be able to take care the patient at home long-term and taking the patient back and forth to dialysis sessions and his weight may be difficult for them. In all, he may end up in a residential if these interventions are to be carried out long-term. For the time being, I would hold off on tracheostomy placement until fluid removal has been achieved. We will follow. Job ID: [id number]
[2019-04-28 12:35] LABS: Potassium 5.3 mmol/L (3.5-5.1)
[2019-04-28 13:44] LABS: HBSAB Concentration 2.22 mIU/mL; HBSAg Index 0.27 S/CO (0-0.99); Hep B Core Total Ab Non-Reactive (NonReactive); Hep B Core Total Index 0.11 S/CO (0-0.79); Hep B Surf AB Non-Reactive (NonReactive); Hep B Surf Ag Non-Reactive S/CO (NonReactive); Hep C IgG Ab Non-Reactive (NonReactive); Hep C Index 0.09 S/CO (0-0.79)
--- NOTE | 2019-04-28 14:09 | PRG ---
DATE OF SERVICE: 04/28/2019 SUBJECTIVE: The patient was seen and examined at the bedside. Family was at the bedside including sister and . OBJECTIVE: GENERAL: This is a morbidly obese male, intubated in ICU. VITAL SIGNS: Temperature 96.4, pulse 87, respiratory rate 18, and blood pressure 123/67. HEENT: Intubated. CVS: S1 and S2 heard. RESPIRATORY: Clear. GI: Abdomen obese. MUSCULOSKELETAL: 2+ edema. DERMATOLOGIC: Chronic skin lesions. NEUROLOGIC: Intubated. LABORATORY DATA: Potassium is 6.4, BUN is 39, and creatinine is 2.6. ASSESSMENT AND PLAN: 1. Acute kidney injury on chronic kidney disease, stage 3 with worsening labs and hyperkalemia, needing dialysis. I had a lengthy discussion with the family and so did Dr. Negrete from Pulmonary Critical Care too. After discussion with everybody in the family, they decided not to have dialysis. All the risks and benefits were discussed and also the difficulty of getting dialyzed long-term with his morbid obesity and other comorbidities. 2. Azotemia. 3. Hyperkalemia. 4. Metabolic alkalosis. 5. Morbid obesity. 6. Anemia. 7. Acute hypoxic respiratory failure. 8. Prognosis guarded. Family is not interested in pursuing dialysis. We will continue to follow. Continue medical management for hyperkalemia. For now, the patient is at high risk for complications. Job ID: [id number]
--- NOTE | 2019-04-28 14:19 | PQF ---
CLINICAL DOCUMENTATION IMPROVEMENT CLARIFICATION FORM: ICD-10 Updated PLEASE DO AN ADDENDUM TO THE PROGRESS NOTE WITH ANY DOCUMENTATION UPDATES OR ADDITIONS AND CARRY THROUGH TO DC SUMMARY. THANK YOU. DATE: 04/28/19 ATTN: DR. LÓPEZ Please exercise your independent, professional judgment in responding to the clarification form. Clinical indicators are provided on the bottom of this form for your review Please check appropriate box(s) to clarify if the following diagnosis has been ruled in or ruled out: "SEPSIS" [ ] Ruled in diagnosis [ ] Continue to treat [ ] Resolved [ ] Ruled out diagnosis [ ] Cannot rule out diagnosis [ ] Other diagnosis [ x ] Unable to determine In addition, please specify: Present on Admission (POA): [ x ] Yes [ ] No [ ] Unable to determine For continuity of documentation, please document condition throughout progress notes and discharge summary. Thank You. CLINICAL INDICATORS - SIGNS / SYMPTOMS / LABS H&P: "POSSIBLE UNDERLYING SEPSIS" MENTAL STATUS CHANGES/ CONFUSION (PER ER NOTE) PULSE 101-138 RR 21-26 BP 79/57 RISKS: RECENT PNEUMONIA MULTIPLE COMORBIDITIES TREATMENT: IV FLUIDS (ER) IV AZITHROMYCIN (04/24-04/27) IV CEFEPIME (04/26-04/28) IV VANCOMYCIN (04/26-04/28) BLOOD CULTURES CRITICAL CARE MONITORING SAP [employer] Crystal Reports Winform Viewer (This form is maintained as a part of the permanent medical record) 2014 [employer]. All Rights Reserved [email or web address] [email or web address] Office: [phone] [facility]
--- NOTE | 2019-04-28 14:42 | PQF ---
CLINICAL DOCUMENTATION IMPROVEMENT CLARIFICATION FORM: ICD-10 Updated PLEASE DO AN ADDENDUM TO THE PROGRESS NOTE WITH ANY DOCUMENTATION UPDATES OR ADDITIONS AND CARRY THROUGH TO DC SUMMARY. THANK YOU. DATE: 04/28/19 ATTN: DR. LÓPEZ Please exercise your independent, professional judgment in responding to the clarification form. Clinical indicators are provided on the bottom of this form for your review Please check appropriate box(s) to clarify if the following diagnosis has been ruled in or ruled out: "PNEUMONIA" [ ] Ruled in diagnosis [ ] Continue to treat [ ] Resolved [ ] Ruled out diagnosis [ ] Other diagnosis [x ] Unable to determine In addition, please specify: Present on Admission (POA): [ x] Yes [ ] No [ ] Unable to determine For continuity of documentation, please document condition throughout progress notes and discharge summary. Thank You. CLINICAL INDICATORS - SIGNS / SYMPTOMS / LABS PROGRESS NOTE 04/26: "POSSIBLE PNEUMONIA" PULMONARY NOTE 04/28: "I DO NOT SUSPECT THIS IS PNEUMONIA." RISKS: RECENT PNEUMONIA RESPIRATORY FAILURE POSSIBLE COPD TREATMENT: IV AZITHROMYCIN (04/24-04/27) IV CEFEPIME (04/26-04/28) IV VANCOMYCIN (04/26-04/28) PULMONARY CONSULT SERIAL CHEST XRAYS SUPPLEMENTAL OXYGEN / MECHANICAL VENTILATION (This form is maintained as a part of the permanent medical record) SAP Lock Operator Crystal Reports Winform Viewer 2015 [employer]. All Rights Reserved [email or web address] [email or web address] Office: [phone] [facility] HOSPITALNick
--- NOTE | 2019-04-28 15:01 | PRG ---
DATE OF SERVICE: 04/28/2019 SUBJECTIVE: The patient is seen and examined at bedside. He is sedated, intubated. The family members at the bedside. OBJECTIVE: VITAL SIGNS: Blood pressure is 123/67, pulse is 87, respiratory rate is 15, O2 saturation is 98% on the ventilator with FiO2 of 75%. HEENT: His pupils are small, responding to light in sluggish way. He is orally intubated. LUNGS: Breath sounds diminished at both bases. HEART: S1 and S2, somewhat distant. No S3. No S4. ABDOMEN: Obese, soft. EXTREMITIES: Massive lymphedema. NEUROLOGICAL: Postponed. LABORATORY DATA: Labs showed sodium of 123, potassium 6.4, chloride 82, CO2 of 26, BUN 39, creatinine 2.64. Glycemia is ranging from 125 to 127. Total bilirubin 1.8, AST 48, albumin 3.3, globulin 4.1. Hepatitis panel within normal limits. Microbiology; blood cultures negative. IMPRESSION: 1. Respiratory failure, acute on chronic hypoxic and hypercapnic. 2. Possible acute congestive heart failure exacerbation, mostly diastolic. 3. Morbid obesity, life-threatening. 4. Hyponatremia. 5. Atrial flutter. 6. Hyperlipidemia. 7. Acute renal failure. 8. Hyperkalemia, treated. PLAN: The patient is leaning towards withdrawing supportive care. They just want to wait a couple of more days for some other members from the family to come over. Then, they will discontinue the treatment most likely. For now, we will continue current regimen. Ophthalmic Technologist wanted to dialyze him, but since the family decided to stop the treatment soon, we are not going to do that. We will check his status on a daily basis and continue current ventilator support. Job ID: [id number]
[2019-04-28] MEDS: Morphine 2 MG/ML SYRINGE SLOW IVP PRN (15:45)
[2019-04-28] MEDS: fentaNYL Citrate/PF 2,000 MCG in Sodium Chloride 0.9% 60 ML IV SCH (18:29)
[2019-04-28] MEDS: Lorazepam 2 MG/ML VIAL SLOW IVP PRN (21:37)
[2019-04-28 23:55] LABS: pH, Arterial 7.32 (7.35-7.45)
[2019-04-28 23:56] LABS: Actual Bicarbonate (HCO3a) 33.4 mEq/L (22-28); Base Excess (BEa) 5.1 mEq/L (-2.0 to +3.0); Calcium, Ionized 1.06 mmol/L (1.12-1.30); Carboxyhemoglobin (COHb) 0.7 gm% (0.0-3.0); Hemoglobin (Hb) 14.5 g/dL (14.0-18.0); O2 Tension (PaO2) 47.3 mmHg (80.0-100.0); Potassium - ABG Lab 5.17 mmol/L (3.70-5.30)
[2019-04-28 23:57] LABS: Analyzer IN Cardio ER; Puncture Site LBR
[2019-04-29] MEDS: Propofol 1,000 MG/100 ML VIAL IV PRN ×4 (00:19→23:30)
[2019-04-29] MEDS ORDERED: Pancrelipase DR 12000 1 CAP FS PRN (03:10)
[2019-04-29 07:07] LABS: ALT (SGPT) 40 U/L (8-55); AST (SGOT) 61 U/L (5-34); Albumin 3.4 g/dL (3.5-5.0); Alkaline Phosphatase 63 U/L (40-150); Anion Gap 20 mmol/L (10-20); BUN (Urea Nitrogen) 47 mg/dL (8.9-20.6); Bilirubin, Total 1.8 mg/dL (0.2-1.2); Calc. Creatinine Clearance 101 mL/min (70-130); Calcium 9.1 mg/dL (7.8-10.44); Carbon Dioxide 29 mmol/L (22-29); Chloride 82 mmol/L (98-107); Estimated GFR-MDRD 23; Globulin 3.7 g/dL (2.4-3.5); Glucose 126 mg/dL (70-105); Potassium 6.5 mmol/L (3.5-5.1); Protein, Total 7.1 g/dL (6.0-8.3); Sodium 124 mmol/L (136-145)
[2019-04-29 07:51] LABS: Actual Bicarbonate (HCO3a) 34.9 mEq/L (22-28); Base Excess (BEa) 7.4 mEq/L (-2.0 to +3.0); Calcium, Ionized 1.04 mmol/L (1.12-1.30); Carboxyhemoglobin (COHb) 1.1 gm% (0.0-3.0); Hemoglobin (Hb) 14.5 g/dL (14.0-18.0); Potassium - ABG Lab 5.38 mmol/L (3.70-5.30); pH, Arterial 7.37 (7.35-7.45)
[2019-04-29] MEDS: Heparin 5,000 UNITS/ML VIAL SC SCH ×3 (09:15→20:36)
--- NOTE | 2019-04-29 09:38 | PRG ---
DATE OF SERVICE: 04/29/2019 TIME SPENT: 35 minutes critical care time. SUBJECTIVE: The patient remains intubated on mechanical ventilation. His sedation has been lowered and he is actually a little more alert today than I have seen him. His sister was at the bedside and we conversed. OBJECTIVE: VITAL SIGNS: The temperature is 96.4, pulse 70, blood pressure 121/76. Intake for 24 hours 1144. Urine output has been a total of 3 mL. HEENT: Unremarkable. Endotracheal tube in place. NECK: Increased girth. LUNGS: Poor air movement. CARDIAC: S1 and S2. Regular. ABDOMEN: Morbidly obese. EXTREMITIES: Edematous throughout. LABORATORY DATA: Sodium 124, potassium 6.5, chloride 82, CO2 of 29, BUN 47, creatinine 2.9, glucose 126. ASSESSMENT: 1. Multiple organ failure including acute on chronic respiratory failure, acute on chronic diastolic congestive heart failure, acute renal failure. 2. Morbid obesity. PLAN: The patient's family has decided not to be aggressive in his care. They have made him DNR, and they are expected to withdraw care after several family members have arrived in town to see the patient. I think the family is going to have one more meeting to discuss ultimate plans of care as I think there are still some division amongst the ranks. For the current time, I do not see anything that needs to be changed. I do not think the potassium is going to come down without dialysis and the continued hyperkalemia may eventually lead to cardiac arrest. Job ID: [id number]
[2019-04-29 11:57] LABS: CO2 Tension 61.5 mmHg (35.0-45.0)
[2019-04-29 11:58] LABS: ALV-art Gradient 435.325 (0-20); O2 Tension (PaO2) 58.2 mmHg (80.0-100.0); Puncture Site L.R.
--- NOTE | 2019-04-29 12:35 | PRG ---
DATE OF SERVICE: 04/29/2019 SUBJECTIVE: Patient was seen and examined at bedside and overnight events noted. Patient denies any shortness of breath or chest pain or palpitation. No history of nausea or vomiting or diarrhea or fever or chills or cramps. OBJECTIVE: GENERAL: This is a morbidly male, seen in ICU, intubated. VITAL SIGNS: Temperature 96.7. Heart rate 79. Respiratory rate 18. Blood pressure . HEENT: Intubated. CV: S1 and S2 heard. RESPIRATORY: Clear. GI: Soft. MUSCULOSKELETAL: 2+ edema. DERMATOLOGIC: Chronic skin lesion. NEUROLOGICAL: Intubated. LABORATORY DATA: Potassium 6.5, BUN is 47, creatinine is 2.9, and sodium is 124. ASSESSMENT AND PLAN: 1. Acute kidney injury on chronic kidney disease with no significant improvement in urine output and renal function continues to get worse. Family decided not to be aggressive and the patient is DNR and family is thinking about withdrawing care once all the family members arrive. There are waiting for his mom and his sister to come from out of state. 2. Azotemia. 3. Hyperkalemia, getting worse. 4. Morbid obesity. 5. Anemia. 6. Acute hypoxic respiratory failure. 7. Diastolic dysfunction. 8. Multiorgan failure. 9. Prognosis guarded. I had a lengthy discussion with the sister again today regarding the prognosis and all the questions were answered. We will follow. Job ID: [id number]
[2019-04-29] MEDS ORDERED: Dextrose 50% Abboject 50 ML SYRINGE SLOW IVP PRN (15:42)
--- NOTE | 2019-04-29 15:56 | PRG ---
DATE OF SERVICE: 04/29/2019 SUBJECTIVE: The patient is seen and examined at the bedside. The family is present at the bedside. The patient's sedation was decreased overnight. The patient's family is contemplating on discontinuation of his supportive care. OBJECTIVE: VITAL SIGNS: Blood pressure is 109/57, pulse is 71, respirations 10, O2 saturation is 91% on the ventilator. GENERAL: The patient is DNR. This was changed per family wishes. The family met with Dr. Negrete. He is orally intubated. LUNGS: Breath sounds diminished at both bases with few crackles bilaterally at both bases. No wheezing. HEART: S1, S2 distant. No S3. No S4. ABDOMEN: Soft, obese. EXTREMITIES: Massive lymphedema. LABORATORY DATA: ABGs showed a pH of 7.37, pCO2 of 61.5, PO2 of 58.2, base excess 7.4. Sodium of 124, potassium 6.5, chloride 82, BUN 47, creatinine 2.92, total bilirubin 1.8, AST 61, ALT 40, alkaline phosphatase 63, albumin 3.4. Hepatitis panel, nonreactive on B surface antigen, B surface antibody, and B core total antibody, and C antibodies. IMPRESSION: 1. Respiratory failure, acute on chronic hypoxic and hypercapnic. 2. Possible acute congestive heart failure exacerbation, mostly diastolic. 3. Morbid obesity, life-threatening. 4. Hyperkalemia. 5. Atrial flutter, rate controlled with Cardizem drip. 6. Acute renal failure, worsening. 7. Hyperlipidemia. PLAN: The patient is still on a ventilator. The patient was made DNR after the family talked to Dr. Negrete, his attending pathologist, and the family members are supposed to gather today and make decision whether they will withdraw supportive care on not. For now, we will continue current regimen and ventilator support as attending pathologist/Critical Care, Dr. Negrete, mentioned that most likely his hyperkalemia will not get better without hemodialysis at this point. Job ID: [id number]
[2019-04-29] MEDS ORDERED: Insulin Regular 300 UNITS/3 ML VIAL IVP SCH (16:45)
[2019-04-29] MEDS: fentaNYL Citrate/PF 2,000 MCG in Sodium Chloride 0.9% 60 ML IV SCH (22:24)
[2019-04-30] MEDS: Propofol 1,000 MG/100 ML VIAL IV PRN (04:51)
[2019-04-30 06:06] LABS: ALT (SGPT) 42 U/L (8-55); AST (SGOT) 55 U/L (5-34); Albumin 3.4 g/dL (3.5-5.0); Alkaline Phosphatase 59 U/L (40-150); Anion Gap 19 mmol/L (10-20); BUN (Urea Nitrogen) 55 mg/dL (8.9-20.6); Bilirubin, Total 1.9 mg/dL (0.2-1.2); Calc. Creatinine Clearance 0 mL/min (70-130); Calcium 8.5 mg/dL (7.8-10.44); Carbon Dioxide 31 mmol/L (22-29); Chloride 80 mmol/L (98-107); Estimated GFR-MDRD 20; Globulin 3.6 g/dL (2.4-3.5); Glucose 109 mg/dL (70-105); Potassium 5.6 mmol/L (3.5-5.1); Sodium 124 mmol/L (136-145)
[2019-04-30] MEDS ORDERED: Dextrose 50% Abboject 50 ML SYRINGE SLOW IVP PRN (07:47)
[2019-04-30] MEDS ORDERED: Insulin Regular 300 UNITS/3 ML VIAL IVP SCH (08:00)
--- NOTE | 2019-04-30 08:18 | PRG ---
DATE OF SERVICE: 04/30/2019 35 minutes critical care time. SUBJECTIVE: The patient remains intubated on mechanical ventilation. He is awake and will move around once sedation is lessened. OBJECTIVE: VITAL SIGNS: On exam, his temperature 97.6, pulse 82, blood pressure 108/37. Intake for 24 hours 834 mL output total of 20 mL of urine. HEENT: Remarkable for ET tube in place. NECK: Increased girth. LUNGS: Coarse rhonchi. CARDIAC: S1, S2. Somewhat irregular. No murmur. ABDOMEN: Obese, soft, nontender. EXTREMITIES: 3+ edema throughout legs, arms and abdomen. LABORATORY DATA: Sodium is 124, potassium 5.6, chloride 80, CO2 of 31, BUN 55, creatinine 3.4, glucose 109. Blood gas has not been resulted today. ASSESSMENT: 1. Acute on chronic hypoxic and hypercapnic respiratory failure, requiring mechanical ventilation. 2. Acute renal failure. 3. Diastolic congestive heart failure. 4. Morbid obesity. 5. Hyperkalemia. PLAN: Again, I think the family will ultimately withdraw in this case. It also would not surprise me, if they did not come back and change their mind. Right now, I am continuing supportive care with mechanical ventilation until they tell me they are ready to have him extubated. This patient's prognosis is quite poor, especially without dialysis. Job ID: [id number]
--- NOTE | 2019-04-30 08:22 | PRG ---
DATE OF SERVICE: 04/30/2019 SUBJECTIVE: The patient is seen and examined at the bedside. He is receiving light sedation. He is still on Cardizem drip 10 mg/hour. OBJECTIVE: VITAL SIGNS: Blood pressure is 108/37, pulse is 84, respiratory rate is 14, O2 saturation is 91% on mechanical ventilation. He is orally intubated. HEENT: He opens his eyes. He tries to follow me with his eyes. His pupils are normal size. Sclerae are nonicteric. Conjunctivae are palish. LUNGS: Breath sounds diminished at both bases. HEART: S1 and S2, somewhat irregular. No S3. No S4. ABDOMEN: Very obese. Bowel sounds are present. EXTREMITIES: Distant extremities, massive lymphedema present as before. NEUROLOGICAL: Postponed since he is still under sedation. LABORATORY DATA: Sodium of 124, potassium 5.6, chloride 80, BUN 55, creatinine 3.39, glucose 109, total bilirubin 1.9, AST 55, ALT 42, alkaline phosphatase 59, albumin 3.4. IMPRESSION: 1. Respiratory failure, acute on chronic hypoxic and hypercapnic, still requiring 80% FiO2 on the ventilator. 2. Possible acute congestive heart failure exacerbation. 3. Morbid obesity, life-threatening. 4. Hyperkalemia. 5. Atrial flutter on Cardizem drip. Rate is controlled. 6. Acute renal failure, worsening. 7. Hyperlipidemia. PLAN: Continue current regimen. The patient is now DNR. The family gathered yesterday, and today, they are supposed to make decision about further treatment versus withdrawing the supportive care. We will treat his hyperkalemia again with D50 one amp and 10 units of insulin. His hyperkalemia improved yesterday after the treatment and potassium is down to 5.5 from 6.5 yesterday. Job ID: [id number]
[2019-04-30] MEDS: Heparin 5,000 UNITS/ML VIAL SC SCH ×3 (08:57→21:15)
--- NOTE | 2019-04-30 12:32 | PRG ---
DATE OF SERVICE: 04/30/2019 SUBJECTIVE: The patient is still intubated and surrounded by family, awake, not making much urine. OBJECTIVE: GENERAL: This is a morbidly obese white male, in no apparent distress, intubated in ICU. VITAL SIGNS: Temperature 97.7, pulse 85, respiratory rate 14, and blood pressure 122/69. HEENT: Intubated. CVS: S1 and S2 heard. RESPIRATORY: Clear. GI: Abdomen soft. MUSCULOSKELETAL: 2+ edema. DERMATOLOGIC: No skin rash. NEUROLOGIC: Awake and intubated. LABORATORY DATA: Potassium 5.6, BUN is 55, creatinine is 3.3, and sodium is 124. ASSESSMENT AND PLAN: 1. Acute kidney injury with worsening creatinine and no significant urine output. The family is still deciding. They were planning to withdraw the care, but now the patient is awake and they are in dilemma, they are having a discussion between them. 2. Hyponatremia. 3. Hyperkalemia. 4. Hypochloremia. 5. Alkalosis. 6. Morbid obesity. 7. Diastolic dysfunction. 8. Prognosis guarded. Family is discussing among themselves about goals of care and further plans will follow. Job ID: [id number] [facility]
--- NOTE | 2019-04-30 19:01 | PDOC.PALPN ---
Palliative Progress Note - Subjective Remains intubated, awake, communicating with pen and paper. Family at bedside. - Objective Vital Signs: Vital Signs - Most Recent Temp Pulse Resp BP Pulse Ox 97.4 F L 90 18 112/46 L 92 L 04/30/19 16:00 04/30/19 18:39 04/30/19 18:38 04/30/19 14:52 04/30/19 18:38 - Physical Exam HEENT: moist MMs, EOMI Deviation from normal: Intubated, excessive secretions. Cardiovascular: RRR Deviation from normal: Obtunded Musculoskeletal: edema present Deviation from normal: Ichthyosis - Assessment (1) Palliative care encounter Code(s): Z51.5 - ENCOUNTER FOR PALLIATIVE CARE Current Visit: Yes Status: Acute Assessment: Patient has become more alert, able to communicate with pen/paper. Will establish new goals of care. - Plan Plan: Sisters Linda Bell, and his mom Malissa as well as palliative care RN Marianne Gan present. Discussed with patient his desire to attempt to begin dialysis, have a tach and peg placed. Discussed with patient at length impact on life. Discussed risks and potential outcomes. Marianne Gan to follow up 05/01/19 to determine new goals of care with patient. I will sign off with Marianne Gan RNdirect support professional caregiver to continue to follow, however if further assistance is needed I will be available. [60] minutes spent on this encounter with >50% of the time in counseling and coordination of care.
[2019-04-30 20:19] LABS: INR-International Normal Ratio 1.1; Prothrombin Time 14.5 SEC (12.0-14.7)
[2019-04-30 20:20] LABS: PTT 28.1 SEC (22.9-36.1)
[2019-04-30 20:35] LABS: Band 3 % (5-11); Hemoglobin 11.8 g/dL (14.0-18.0); Hypochromia SLIGHT = 6-15 cells (100X) (0-5/hpf); Lymphocytes 20 % (21-51); MDiff Complete? YES; Mean Corpuscular HGB CONC 31.2 g/dL (32.0-36.0); Mean Corpuscular Hemoglobin 31.7 pg (27.0-31.0); Mean Platelet Volume 8.8 fL (7.4-10.4); Monocytes 9 % (0-10); Neutrophil 65 % (42-75); Platelet Count 108 thou/uL (130-400); Platelet Morphology Comment Appears Decreased; RBC Distribution Width 15.9 % (11.5-14.5); Reactive Lymphocytes 3 % (0-10); Red Blood Cell (RBC) Count 3.73 mill/uL (4.70-6.10); White Blood Cell (WBC) Count 7.5 thou/uL (4.8-10.8)
[2019-05-01 04:45] LABS: ALT (SGPT) 31 U/L (8-55); AST (SGOT) 42 U/L (5-34); Albumin 3.1 g/dL (3.5-5.0); Alkaline Phosphatase 58 U/L (40-150); Anion Gap 19 mmol/L (10-20); BUN (Urea Nitrogen) 64 mg/dL (8.9-20.6); Calc. Creatinine Clearance 72 mL/min (70-130); Calcium 8.3 mg/dL (7.8-10.44); Carbon Dioxide 28 mmol/L (22-29); Chloride 81 mmol/L (98-107); Estimated GFR-MDRD 16; Globulin 3.6 g/dL (2.4-3.5); Glucose 107 mg/dL (70-105); Potassium 6.3 mmol/L (3.5-5.1); Protein, Total 6.7 g/dL (6.0-8.3); Sodium 122 mmol/L (136-145)
[2019-05-01 07:50] LABS: Base Excess (BEa) 5.2 mEq/L (-2.0 to +3.0); Carboxyhemoglobin (COHb) 1.9 gm% (0.0-3.0); O2 Tension (PaO2) 63.5 mmHg (80.0-100.0); Potassium - ABG Lab 5.17 mmol/L (3.70-5.30); pH, Arterial 7.33 (7.35-7.45)
[2019-05-01 07:51] LABS: Puncture Site L.R.
--- NOTE | 2019-05-01 07:56 | PRG ---
DATE OF SERVICE: 05/01/2019 TIME SPENT: 35 minutes critical time. SUBJECTIVE: The patient has changed his mind regarding end of life care. He has decided to pursue dialysis. Tracheostomy is also under consideration. OBJECTIVE: VITAL SIGNS: His temperature is 98.3, pulse 78, blood pressure 120/50. A 24-hour intake 607, output 25 mL. HEENT: Unremarkable except for the ET tube. NECK: No JVD. LUNGS: Coarse breath sounds. CARDIAC: S1, S2. Regular. ABDOMEN: Morbidly obese. EXTREMITIES: Edematous throughout. LABORATORY DATA: ABG is pending. White blood cell count 7.5, hematocrit 37.9, and platelet count 108 yesterday. Sodium 122, potassium 6.3, chloride 81, CO2 of 20, BUN 64, creatinine 4.1, and glucose 107. ASSESSMENT: 1. Acute on chronic renal failure with oliguria. 2. Acute on chronic respiratory failure, requiring mechanical ventilation. 3. Likely underlying obstructive sleep apnea. 4. Diastolic heart failure. 5. Morbid obesity. 6. Hyperkalemia. PLAN: 1. We will need to re-consult General Surgery for dialysis access. The patient will probably also need a central line put in whatever location would be amenable to future dialysis access. 2. I will go ahead and reduce the patient's heparin dose to twice daily. 3. Await family's arrival for further discussion. Job ID: [id number]
[2019-05-01] MEDS: fentaNYL Citrate/PF 2,000 MCG in Sodium Chloride 0.9% 60 ML IV SCH (08:00)
[2019-05-01] MEDS: Heparin 5,000 UNITS/ML VIAL SC SCH ×2 (08:47→21:13)
--- NOTE | 2019-05-01 13:09 | PDOC.CTH ---
Cardiology Progress Note - Subjective Respiratory failure Morbid obesity JULIA Acute kidney injury atrial flutter HR controlled on IV CCB Pt scheduled for trach and peg Add PO CCB when peg tube can be used No further CV recommendations - Objective Vital Signs Temp Pulse Resp BP Pulse Ox 05/01/19 12:00 98.6 F 14 05/01/19 10:37 97 138/56 L 05/01/19 10:35 99 11 L 94 L 05/01/19 10:00 13 05/01/19 08:00 98.4 F 15 05/01/19 07:32 90 124/53 L 05/01/19 07:30 87 12 94 L 05/01/19 05:57 13 05/01/19 05:00 98.8 F 05/01/19 04:00 21 H 05/01/19 02:09 88 05/01/19 02:08 88 16 92 L 05/01/19 02:00 28 H Admit Weight 488 lb 9.6 oz Weight 8.074 oz 04/30/19 05/01/19 05/02/19 06:59 06:59 06:59 Intake Total 834.8 607 Output Total 20 25 Balance 814.8 582 - Labs Result Diagrams: 04/30/19 19:54 05/01/19 04:23 Troponin/CKMB CK-MB (CK-2) 1.7 ng/mL (0-6.6) 04/24/19 23:00 Troponin I 0.314 ng/mL (< 0.028) H* 04/25/19 03:23
--- NOTE | 2019-05-01 14:21 | PRG ---
DATE OF SERVICE: 05/01/2019 SUBJECTIVE: The patient is seen and examined at bedside. He is on minimal sedation at this point. He is able to respond to my communication. He is not in any pain. OBJECTIVE: VITAL SIGNS: Blood pressure is 127/49, pulse is 91, respiratory rate is 17, O2 saturation is 94% on ventilator. HEENT: His pupils are responding to light properly. Sclerae are nonicteric. LUNGS: Breath sounds diminished at both bases. No wheezing. HEART: S1 and S2 normal, distant. No S3, no S4. ABDOMEN: Very obese. Bowel sounds present, sluggish. EXTREMITIES: Massive lymphedema bilaterally. LABORATORY DATA: ABGs showed a pH of 7.33, PO2 63.5, pCO2 64.0. Sodium of 122, potassium is 6.3, CO2 28, BUN 64, creatinine of 4.08, glucose 107, total bilirubin 2.0, AST 42. IMPRESSION: 1. Respiratory failure, [id number] hypoxic and hypercapnic, still requiring high FiO2. 2. Possible acute congestive heart failure. 3. Morbid obesity, life-threatening. 4. Hyperkalemia. 5. Atrial flutter. 6. Acute renal failure, worsening, to be started on dialysis. 7. Hyperlipidemia. PLAN: The patient's potassium is elevated, but he had his catheter placed by general surgeon for dialysis, and he will be dialyzed very soon. We will continue ventilator support. He is supposed to have PEG placement and tracheostomy per family's wishes. Job ID: [id number]
--- NOTE | 2019-05-01 14:40 | PRG ---
DATE OF SERVICE: 05/01/2019 SUBJECTIVE: The patient was seen and examined in ICU. The patient wishes to have dialysis now. OBJECTIVE: GENERAL: He is a morbidly obese male, who was seen in ICU, intubated. VITAL SIGNS: Temperature 98.6, pulse 91, respiratory rate 18, and blood pressure 129/45. HEENT: Intubated. CV: S1 and S2 heard. RESPIRATORY: Clear. GI: Abdomen is soft. MUSCULOSKELETAL: 2+ to 3+ edema. NEUROLOGIC: Awake. LABORATORY DATA: Potassium is 6.3, BUN is 64, creatinine is 4.8. ASSESSMENT AND PLAN: 1. Acute kidney injury, getting worse. The patient and family wish to have dialysis now and dialysis catheter placed by Surgery, appreciate help. We will follow. 2. Hyponatremia. 3. Hyperkalemia. 4. Hypochloremia. 5. Alkalosis. 6. Morbid obesity. 7. Diastolic dysfunction. Plan is to start dialysis with fluid removal if tolerated. We will monitor. Prognosis remains guarded. Job ID: [id number]
[2019-05-01] MEDS ORDERED: Heparin 10,000 UNITS/1 ML VIAL ONE (15:00)
--- NOTE | 2019-05-01 17:14 | ULT ---
DOPPLER ARTERIAL EVALUATION OF THE LEFT LOWER EXTREMITY: 05/01/19 INDICATION: History of left great toe wound with no palpable pedal pulses. FINDINGS: The exam detail is heavily limited due to the patient's body habitus. The arterial waveform at the left common femoral artery demonstrates a predominantly antegrade monoph asic waveform with peak systolic velocity of 116.7 cm/s. Profunda femoral artery also demonstrates an antegrade monophasic waveform peak systolic velocity of 123.8 cm/s. Proximal femoral artery demonstr ates a more biphasic waveform with a peak systolic velocity of 136.3 cm/s. The mid to distal left fem oral artery is not seen. The popliteal artery was obscured. There is a monophasic antegrade waveform of the left posterior tibial artery. The anterior tibial artery demonstrates tardus parvus antegrade monophasic waveform. There is a monophasic waveform seen the dorsalis pedis artery with peak systolic velocity of 43.5 cm/s. IMPRESSION: Heavily limited Doppler arterial evaluation of the left lower extremity due to patient's body habitus . There is nonvisualization of the arterial structures of the mid femoral artery through the level of the popliteal artery. There is antegrade monophasic waveforms seen within the foreleg vasculature wi th more tardus parvus type waveform of the left anterior tibial artery which may reflect more proxima l hemodynamically significant stenosis near the origin of the anterior tibial artery. CTA examination of the abdomen and pelvis and lower extremities may be helpful for improved characterization due to limitations of this exam. POS: JAY
[2019-05-02] MEDS: Lorazepam 2 MG/ML VIAL SLOW IVP PRN ×2 (04:58→22:44)
[2019-05-02 05:29] LABS: Anion Gap 19 mmol/L (10-20); BUN (Urea Nitrogen) 63 mg/dL (8.9-20.6); Calc. Creatinine Clearance 72 mL/min (70-130); Calcium 8.1 mg/dL (7.8-10.44); Carbon Dioxide 31 mmol/L (22-29); Chloride 81 mmol/L (98-107); Estimated GFR-MDRD 16; Glucose 104 mg/dL (70-105); Potassium 5.2 mmol/L (3.5-5.1); Sodium 126 mmol/L (136-145)
[2019-05-02 05:36] LABS: Band 10 % (5-11); Hemoglobin 11.5 g/dL (14.0-18.0); Lymphocytes 9 % (21-51); MDiff Complete? YES; Macrocytosis SLIGHT = 6-15 cells (100X) (0-5/hpf); Mean Corpuscular HGB CONC 30.9 g/dL (32.0-36.0); Mean Corpuscular Hemoglobin 31.1 pg (27.0-31.0); Metamyelocyte 1 % (0-0); Monocytes 19 % (0-10); Neutrophil 60 % (42-75); Platelet Count 109 thou/uL (130-400); Platelet Morphology Comment Appears Decreased; RBC Distribution Width 15.9 % (11.5-14.5); Reactive Lymphocytes 1 % (0-10)
--- NOTE | 2019-05-02 07:12 | PDOC.OP ---
Operative Note - Operative Note Operative Note: PROCEDURE: Right femoral hemodialysis catheter placement with ultrasound guidance DATE OF PROCEDURE: 05/01/2019 DIAGNOSIS: Renal failure SURGEON: Sheri García M.D. LANDSCAPE ARTIST: Dwayne Murillo MS 3 HISTORY: Patient is a 48-year-old man with acute renal failure after admission for respiratory failure and super morbid obesity. The patient and family have decided to proceed with aggressive care and he requires dialysis access for this. PROCEDURE IN DETAIL: After informed consent was obtained the patient was prepped and draped in standard sterile fashion and placed in supine position, with upward retraction of the pannus and downward retraction of the thigh. A sterile ultrasound probe was used to identify the patent right femoral vein and local anesthesia was infused the skin and subcutaneous tissues overlying this. The vein was accessed under direct ultrasound guidance and a wire threaded through the needle. The needle was removed leaving the wire in place which was confirmed by ultrasound to be within the patent compressible vein. The skin was incised and the tract was dilated. A hemodialysis catheter was placed over the wire and secured to the skin with suture. A sterile Tegaderm dressing was placed. All ports easily aspirated dark venous nonpulsatile blood and easily flushed without resistance. There were no immediate complications. Estimated blood loss is minimal. There were no specimens. The inpatient dialysis nurse was alerted that the patient had dialysis access in place.
[2019-05-02 07:53] LABS: Actual Bicarbonate (HCO3a) 34.6 mEq/L (22-28); Base Excess (BEa) 8.3 mEq/L (-2.0 to +3.0); CO2 Tension 55.3 mmHg (35.0-45.0); Calcium, Ionized 0.98 mmol/L (1.12-1.30); Carboxyhemoglobin (COHb) 1.7 gm% (0.0-3.0); Hemoglobin (Hb) 12.7 g/dL (14.0-18.0); O2 Tension (PaO2) 73.2 mmHg (80.0-100.0); Potassium - ABG Lab 5.04 mmol/L (3.70-5.30); pH, Arterial 7.41 (7.35-7.45)
[2019-05-02 07:57] LABS: Puncture Site L.R.
[2019-05-02 07:58] LABS: ALV-art Gradient 249.825 (0-20)
--- NOTE | 2019-05-02 08:16 | PDOC.CTH ---
Cardiology Progress Note - Subjective No changes noted. Pt is more alert today. HR stable on IV CCB. dialysis catheter was pulled out yesterday - Objective Vital Signs Temp Pulse Resp BP Pulse Ox 05/02/19 08:00 14 05/02/19 07:38 112 H 122/46 L 05/02/19 07:36 118 H 19 95 05/02/19 06:00 16 05/02/19 04:00 98.8 F 16 05/02/19 02:42 104 H 05/02/19 02:41 111 H 27 H 96 05/02/19 02:00 12 05/02/19 00:00 98.9 F 12 05/01/19 22:36 97 05/01/19 22:35 93 14 94 L 05/01/19 22:00 12 Admit Weight 488 lb 9.6 oz Weight 500 lb 12 oz 05/01/19 05/02/19 05/03/19 06:59 06:59 06:59 Intake Total 607 1062.3 Output Total 25 0 Balance 582 1062.3 - Physical Examination General/Neuro: NAD Neck: no JVD present Lungs: unlabored respirations Heart: PMI normal, RRR Abdomen: NT/ND, soft Extremities: + femoral B - Labs Result Diagrams: 05/02/19 04:50 05/02/19 04:50 Troponin/CKMB CK-MB (CK-2) 1.7 ng/mL (0-6.6) 04/24/19 23:00 Troponin I 0.314 ng/mL (< 0.028) H* 04/25/19 03:23 - Assessment/Plan Respiratory failure Morbid obesity JULIA Acute kidney injury atrial flutter REC 05/02/2019 05/01/2019 REC HR controlled on IV CCB Pt scheduled for replacement of dialysis catheter Hold ACT for now given risk of bleeding No further CV recommendations
[2019-05-02] MEDS: Heparin 5,000 UNITS/ML VIAL SC SCH ×2 (08:59→22:39)
--- NOTE | 2019-05-02 10:00 | PRG ---
DATE OF SERVICE: 05/02/2019 TIME SPENT: 35 minutes of Critical Care time. SUBJECTIVE: The patient remains intubated on mechanical ventilation. He did receive dialysis yesterday, and 3 L of fluid was removed, and his x-ray looks dramatically better. Unfortunately, he pulled out his dialysis catheter accidentally last night. OBJECTIVE: VITAL SIGNS: His temperature is 98.9, pulse 150, blood pressure 105/57, saturations 96%. Total intake for 24 hours 1062, output 3 L. HEENT: Unremarkable. NECK: No JVD. LUNGS: Coarse breath sounds. CARDIAC: S1 and S2. Regular. ABDOMEN: Morbidly obese, soft, and nontender. EXTREMITIES: Edematous throughout. LABORATORY DATA: Sodium 126, potassium 5.2, chloride 81, CO2 of 31, BUN 63, creatinine 4.0, glucose 104. White blood cell count 9.0, hematocrit 37.3, platelet count 109. A pH 7.41, pCO2 of 55, pO2 of 73, that is on SIMV with a rate of 6, inspiratory pressure of 15, and FiO2 of 55% on 15 of PEEP. ASSESSMENT: 1. This patient has oknor-ox-qojpiqm respiratory failure secondary to pulmonary edema and probably some degree due to obesity hypoventilation syndrome. 2. Acute renal failure with fluid overload. 3. Diastolic heart failure. 4. Morbid obesity. 5. Improved hyperkalemia after dialysis. PLAN: I would forge ahead with continued dialysis. I think I will be able to extubate him after a few more sessions of dialysis, and perhaps, we can avoid the tracheostomy. I do think his sleep apnea will have to be addressed with CPAP or BiPAP. I have adjusted his ventilator settings by turning down his PEEP and his FiO2. Job ID: [id number]
--- NOTE | 2019-05-02 10:15 | RAD ---
CHEST 1 VIEW: Date: 05/02/19 INDICATION: History of pneumonia. COMPARISON: Prior exam dated 04/28/19. FINDINGS: ET tube and gastric catheter are unchanged. There is improvement in the perihilar opacity seen on the prior examination. Cardiomegaly and pulmonary vascular congestion remain. Small bilateral pleural ef fusions, left greater than right, remain. No definite pneumothorax is evident. IMPRESSION: 1. Improvement in the perihilar opacity seen from the comparison examination. 2. Persistent cardiomegaly, pulmonary vasculature congestion, and small bilateral pleural effusions may reflect a component of volume overload. Continued follow-up is recommended. POS: BH
--- NOTE | 2019-05-02 14:44 | PRG ---
DATE OF SERVICE: 05/02/2019 SUBJECTIVE: The patient is seen and examined at the bedside. The family members are at the bedside, the patient's mother. He is off sedation. OBJECTIVE: VITAL SIGNS: Blood pressure is 121/62, pulse is 95, respirations are 23, O2 saturation is 95%. His FiO2 was lowered after dialysis to 45%. HEENT: His pupils are responding to light properly. Sclerae are nonicteric. He is orally intubated. He responds to my voice. LUNGS: Breath sounds diminished at both bases. HEART: S1 and S2, distant. No S3. No S4. ABDOMEN: Obese and nontender. EXTREMITIES: Massive lymphedema, but somewhat smaller after dialysis. NEUROLOGIC: He is able to move his 4 extremities, and he seems to be comprehending what I am saying. LABORATORY DATA: Showed white count of 9.0, hemoglobin 11.5, hematocrit 37.3, platelet count is 109. ABG showed pH of 7.41, pCO2 of 55.3, and pO2 of 73.2. Sodium of 126, potassium 5.2, chloride 81, CO2 of 31, BUN 63, creatinine 4.06, calcium 8.1. Blood cultures, negative. Chest x-ray showed improvement in the perihilar opacities, but still persistent cardiomegaly and pulmonary vasculature congestion. IMPRESSION: 1. Respiratory failure, yfxeo-iz-[id number], hypoxic and hypercapnic, improved after dialysis. His FiO2 requirement is down to 45% now from 80% before the dialysis. 2. Congestive heart failure, uonat-aj-cuowmgt. 3. Morbid obesity, life-threatening. 4. Hyperkalemia. 5. Atrial flutter. 6. Acute renal failure, status post 2-hour dialysis. 7. Hyperlipidemia. PLAN: Continue dialysis per Nephrology Service. Continue ventilator support and mechanical ventilation. Clerical Proofreader is not sure yet whether he is going to have tracheostomy placed since he improved so much after the dialysis. I hope that we can extubate him after few sessions of dialysis and removal of more fluids. For now, we will continue his diltiazem for his atrial flutter, and we will continue supportive care. Job ID: [id number]
--- NOTE | 2019-05-02 17:01 | EKG ---
Test Reason : AMS Blood Pressure : / mmHG Vent. Rate : 138 BPM Atrial Rate : 276 BPM P-R Int : 000 ms QRS Dur : 082 ms QT Int : 358 ms P-R-T Axes : 000 051 199 degrees QTc Int : 542 ms Atrial flutter with 2:1 A-V conduction Cannot rule out Inferior infarct , age undetermined Abnormal ECG Confirmed by CARRIE CORTEZ, YESI ([id number]), film editor supervisor FITZ DICKEY ([id number]) on 05/02/2019 5:00:35 PM Referred By: Confirmed By:YESI BUTLER MD
[2019-05-03] MEDS: Propofol 1,000 MG/100 ML VIAL IV PRN ×5 (00:50→23:30)
[2019-05-03 04:42] LABS: Anion Gap 17 mmol/L (10-20); BUN (Urea Nitrogen) 56 mg/dL (8.9-20.6); Calc. Creatinine Clearance 76 mL/min (70-130); Calcium 8.4 mg/dL (7.8-10.44); Carbon Dioxide 31 mmol/L (22-29); Chloride 86 mmol/L (98-107); Estimated GFR-MDRD 17; Glucose 97 mg/dL (70-105); Potassium 4.6 mmol/L (3.5-5.1); Sodium 129 mmol/L (136-145)
[2019-05-03 05:24] LABS: Band 5 % (5-11); Eosinophils 2 % (0-10); Hemoglobin 11.6 g/dL (14.0-18.0); Hypochromia SLIGHT = 6-15 cells (100X) (0-5/hpf); Lymphocytes 8 % (21-51); MDiff Complete? YES; Macrocytosis SLIGHT = 6-15 cells (100X) (0-5/hpf); Mean Corpuscular HGB CONC 31.9 g/dL (32.0-36.0); Mean Platelet Volume 8.9 fL (7.4-10.4); Monocytes 20 % (0-10); Neutrophil 65 % (42-75); Platelet Count 115 thou/uL (130-400); Platelet Morphology Comment Appears Decreased; RBC Distribution Width 15.7 % (11.5-14.5); Red Blood Cell (RBC) Count 3.62 mill/uL (4.70-6.10); White Blood Cell (WBC) Count 8.2 thou/uL (4.8-10.8)
[2019-05-03 08:00] LABS: Actual Bicarbonate (HCO3a) 30.6 mEq/L (22-28); Base Excess (BEa) 5.4 mEq/L (-2.0 to +3.0); CO2 Tension 47.2 mmHg (35.0-45.0); Calcium, Ionized 1.02 mmol/L (1.12-1.30); Carboxyhemoglobin (COHb) 1.9 gm% (0.0-3.0); Hemoglobin (Hb) 12.8 g/dL (14.0-18.0); O2 Tension (PaO2) 62.3 mmHg (80.0-100.0); Potassium - ABG Lab 4.65 mmol/L (3.70-5.30); pH, Arterial 7.43 (7.35-7.45)
[2019-05-03 08:01] LABS: Puncture Site L.R.
[2019-05-03] MEDS: Heparin 5,000 UNITS/ML VIAL SC SCH ×2 (08:16→21:06)
--- NOTE | 2019-05-03 10:24 | PRG ---
DATE OF SERVICE: 05/03/2019 TIME SPENT: 35 minutes of critical care time. SUBJECTIVE: The patient is agitated. He wants to walk out here and go home. His family is trying to keep him calm. OBJECTIVE: VITAL SIGNS: His temperature is 99.0, pulse 109, blood pressure 157/83, and O2 saturation running 93% to 94%. HEENT: Unremarkable. ET tube in place. NECK: No JVD. LUNGS: Clear anteriorly. CARDIAC: S1 and S2, regular. ABDOMEN: Obese. EXTREMITIES: Edematous. DIAGNOSTIC DATA: His chest x-ray shows bilateral pulmonary edema, which is about the same as yesterday. LABORATORY DATA: A pH 7.43, pCO2 of 47, pO2 of 62, that is on SIMV rate 6 with a PEEP of 12, pressure support 15, and inspiratory pressure of 15. White blood cell count 8.2, hematocrit 32, and platelet count 115. Sodium 129, potassium 4.6, chloride 86, CO2 of 31, BUN 56, creatinine 3.8, and glucose 97. ASSESSMENT: 1. Acute on chronic respiratory failure, requiring mechanical ventilation. 2. Fluid overload secondary to acute renal failure. 3. Acute renal failure. 4. Diastolic heart dysfunction. 5. Morbid obesity. PLAN: Continue hemodialysis and aggressive fluid removal. I will go ahead and put him on a pressure support breathing mode. I do not think he is extubatable at this time, but may be after several more days of dialysis. Discussed with the patient and his sister. Job ID: [id number]
[2019-05-03] MEDS ORDERED: Heparin 1,000 UNITS/ML VIAL ONE (11:11)
--- NOTE | 2019-05-03 12:09 | RAD ---
CHEST 1 VIEW: Date: 05/03/19 INDICATION: Pneumonia. COMPARISON: Prior exam dated 05/02/19. FINDINGS: There is persistent cardiomegaly, pulmonary vascular congestion, and mild central edema pattern. Tiny pleural effusions remain. Patient remains intubated with associated gastric catheter placement. Tube s and lines project in the expected position. No pneumothorax is evident. IMPRESSION: Stable exam. POS: BH
[2019-05-03] MEDS: Acetaminophen 650 MG/20.3 ML UDCUP PO PRN ×2 (14:00→21:06)
--- NOTE | 2019-05-03 14:01 | PRG ---
DATE OF SERVICE: 05/03/2019 SUBJECTIVE: The patient is seen and examined in ICU. Remains intubated. OBJECTIVE: GENERAL: Morbidly obese male, intubated. VITAL SIGNS: Temperature 98.5, pulse 107, respiratory rate 16, and blood pressure 130/66. HEENT: Intubated. CV: S1 and S2 heard. RESPIRATORY: Clear. GI: Abdomen is soft. MUSCULOSKELETAL: 2+ edema. NEUROLOGIC: Currently intubated. LABORATORY DATA: Sodium is 129, potassium is 4.6, BUN is 56, and creatinine is 3.8. ASSESSMENT AND PLAN: 1. Acute kidney injury, dialysis dependent. We will remove fluid with dialysis. 2. Hyponatremia, limit fluid intake. 3. Hyperkalemia, better with dialysis. 4. Morbid obesity. 5. Continue dialysis as tolerated. Labs are looking better. Job ID: [id number]
--- NOTE | 2019-05-03 14:23 | PRG ---
DATE OF SERVICE: 05/03/2019 SUBJECTIVE: The patient is seen and examined at the bedside. He is on small dose of propofol. He got agitated last night and he was started on propofol small dose for that purpose. I believe sister is at the bedside. She is a nurse from out of town. The patient is tolerating his endotracheal tube today. OBJECTIVE: HEENT: His pupils are responding to light properly. Sclerae are nonicteric. LUNGS: Breath sounds diminished at both bases. HEART: S1 and S2, normal. No S3. No S4. ABDOMEN: Soft, nontender, obese. EXTREMITIES: Massive lymphedema present. NEUROLOGIC: He responds to me by squeezing hand. He seems to be comprehending. LABORATORY DATA: Labs showed white count of 8.2, hemoglobin 11.6, hematocrit 36.2, platelet count is 115. ABGs showed pH of 7.43, pCO2 of 47.2, pO2 of 62.3, this is on FiO2 of 48%. His sodium is 129, potassium 4.6, chloride 86, CO2 of 31, BUN 56, creatinine 3.88. His calcium is 8.4. Estimated GFR is 17. Chest x-ray looks very similar to the one which was obtained yesterday. IMPRESSION: 1. Acute on chronic respiratory failure, requiring mechanical ventilation. 2. Diastolic heart failure. 3. Morbid obesity. 4. Acute renal failure, on dialysis started. 5. Fluid overload secondary to acute renal failure. 6. Atrial flutter, rate controlled with Cardizem drip. PLAN: Plan is to continue hemodialysis per Nephrology Service, increasing the time of dialysis gradually. It looks like the patient is responding to that. His O2 requirements are down. We will continue his Cardizem drip for atrial flutter and we will continue his supportive care and mechanical ventilation for now. Skate Hop will make decision whether he is going to need tracheostomy placement. Job ID: [id number]
[2019-05-04 05:18] LABS: Anion Gap 15 mmol/L (10-20); BUN (Urea Nitrogen) 48 mg/dL (8.9-20.6); Calc. Creatinine Clearance 76 mL/min (70-130); Calcium 9.1 mg/dL (7.8-10.44); Carbon Dioxide 31 mmol/L (22-29); Chloride 90 mmol/L (98-107); Estimated GFR-MDRD 18; Glucose 103 mg/dL (70-105); Potassium 4.4 mmol/L (3.5-5.1); Sodium 132 mmol/L (136-145)
--- NOTE | 2019-05-04 07:42 | RAD ---
Portable frontal chest radiograph: 05/04/2019 COMPARISON: 05/03/2019 HISTORY: Pneumonia, respiratory distress FINDINGS: Stable endotracheal tube and nasogastric tube. The tip of the nasogastric tube is difficult to visualize secondary to body habitus and technique. There is stable widening of the superior mediastinum. There is increased density in bilateral perihilar regions as well as bilateral paratrach eal regions. This may signify airspace disease, lymphadenopathy, and/or vascular prominence. There are coarse increased interstitial and alveolar opacities noted centrally within both lungs, left grea ter than right, similar when compared to the prior examination. IMPRESSION: No significant interval change. Please see above discussion.
[2019-05-04] MEDS: Propofol 1,000 MG/100 ML VIAL IV PRN ×2 (09:33→22:04)
--- NOTE | 2019-05-04 09:52 | PRG ---
DATE OF SERVICE: TIME SPENT: 35 minutes critical care time. SUBJECTIVE: The patient remains intubated on mechanical ventilation. He is fully awake and able to communicate with a chalkboard. OBJECTIVE: VITAL SIGNS: On exam, his temperature is 98.5, pulse 113, blood pressure 146/69, O2 saturation 94%. HEENT: Unremarkable except the ET tube in place. NECK: No JVD. LUNGS: Coarse breath sounds. CARDIAC: S1, S2. Regular. ABDOMEN: Obese. EXTREMITIES: Less edema. LABORATORY DATA: Sodium 132, potassium 4.4, chloride 90, CO2 of 31, BUN 48, creatinine 3.7, glucose 103. Chest x-ray continues to clear slowly. ASSESSMENT: 1. Acute on chronic respiratory failure, requiring mechanical ventilation. 2. Fluid overload secondary to acute renal failure. 3. Diastolic heart dysfunction. 4. Morbid obesity. PLAN: Continue slowly wean ventilator. I think he will need many more pounds of fluid removed before considering extubation. So far, he has lost about 20 pounds of fluid weight. His progress is encouraging. Job ID: [id number]
--- NOTE | 2019-05-04 11:40 | PRG ---
DATE OF SERVICE: 05/02/2019 SUBJECTIVE: The patient was seen and examined in the ICU. He remains intubated. OBJECTIVE: GENERAL: This is a morbidly obese male, intubated. VITAL SIGNS: Temperature 99.0, pulse 93, blood pressure 119/59. HEENT: Intubated. CVS: . RESPIRATORY: Clear to auscultation. GASTROINTESTINAL: Abdomen is soft. MUSCULOSKELETAL: 3+ edema. NEUROLOGICAL: Awake. LABORATORY DATA: Potassium is 5.2, BUN is 63, and creatinine is 4.0. ASSESSMENT AND PLAN: 1. Acute kidney injury on chronic kidney disease, dialysis dependent. We will have dialysis today. 2. Hyperkalemia, better with dialysis. 3. Hyponatremia, will remove fluid with dialysis. 4. Alkalosis. 5. Morbid obesity . 6. Fluid overload seems to be better with dialysis. We will continue on dialysis as tolerated. Plan to have dialysis once a new catheter is placed . Job ID: [id number]
--- NOTE | 2019-05-04 12:08 | PRG ---
DATE OF SERVICE: 05/04/2019 SUBJECTIVE: This is a 48-year-old gentleman being seen for acute kidney injury, which is dialysis dependent. The patient denies any complaint. OBJECTIVE: CONSTITUTIONAL: On examination, the patient is resting. VITAL SIGNS: Afebrile, pulse 106, breathing 16, and blood pressure 142/69. GENERAL APPEARANCE AND MENTAL STATUS: Fair. HEAD/NECK: Normocephalic. Atraumatic. EYES: EOMI. No deformity. EARS: Clear. No ulcers. NOSE: Intact. No lesions. MOUTH: Clear. No discharge. THROAT: Clear. No exudate. LUNGS: Clear. No crackles. CARDIAC: S1, S2. No rub. ABDOMEN: Benign. Bowel sounds positive. GENITALIA/RECTUM: Noguera absent. BACK/EXTREMITIES: Edema 0+. NEUROLOGICAL: Alert and motor intact. SKIN: LYMPHATICS: LABORATORY DATA: Hemoglobin 11.6. Creatinine 3.72. ASSESSMENT AND PLAN: 1. Stage 6 chronic kidney disease, stable. Acute kidney injury due to acute tubular necrosis, multifactorial, stable. 2. Hyperkalemia, stable. Medication based on glomerular filtration rate appropriate. Continue replacement therapy due to massive volume overload. Overall, prognosis is poor. The patient's quality of life was discussed with the patient and his mother was present during the interview and outpatient dialysis options once the patient is discharged. The patient will need this aggressive Fiber [employer] Central Office Installer consultation for discharge planning. Job ID: [id number]
[2019-05-04] MEDS: Heparin 5,000 UNITS/ML VIAL SC SCH ×2 (12:27→22:05)
--- NOTE | 2019-05-04 14:21 | PRG ---
DATE OF SERVICE: 05/04/2019 SUBJECTIVE: The patient is seen and examined at bedside. He is in ICU 9. He is still intubated. His sister and his mother are at the bedside. He does not have much complaints to offer. He would like to take this endotracheal tube out as soon as possible. He is asking me questions about how long he is going to have to be on dialysis. OBJECTIVE: VITAL SIGNS: Blood pressure is 150/61, pulse is 122, respiratory rate is 32, O2 saturation is 92%. He is still on FiO2 of 45. HEENT: His sclerae are nonicteric. Conjunctivae are pinkish. Oral mucosa is not examined. LUNGS: Breath sounds diminished at both bases. HEART: S1 and S2 normal. No S3. No S4. Somewhat tachycardic. ABDOMEN: Soft, nontender. EXTREMITIES: Massive lymphedema present. NEUROLOGICAL: He follows my commands. He is able to communicate by writing on the board. LABORATORY DATA: Showed a sodium of 132, potassium 4.4, chloride 90, CO2 of 31, BUN 48, creatinine 3.72, calcium 8.1, and glucose 103. IMPRESSION: 1. Acute on chronic respiratory failure, requiring mechanical ventilation. 2. Diastolic heart failure. 3. Morbid obesity. 4. Acute renal failure on hemodialysis daily. 5. Fluid overload secondary to acute renal failure. 6. Atrial flutter, rate controlled with Cardizem drip. PLAN: Continue dialysis per Nephrology. Continue supportive care with mechanical ventilation. Continue Cardizem drip. Job ID: [id number]
[2019-05-05] MEDS: Morphine 2 MG/ML SYRINGE SLOW IVP PRN (00:59)
[2019-05-05] MEDS ORDERED: Morphine 2 MG/ML SYRINGE SLOW IVP PRN (05:12)
[2019-05-05 05:22] LABS: Anion Gap 15 mmol/L (10-20); BUN (Urea Nitrogen) 41 mg/dL (8.9-20.6); Calc. Creatinine Clearance 81 mL/min (70-130); Calcium 9.1 mg/dL (7.8-10.44); Carbon Dioxide 30 mmol/L (22-29); Chloride 92 mmol/L (98-107); Estimated GFR-MDRD 19; Glucose 93 mg/dL (70-105); Potassium 4.2 mmol/L (3.5-5.1); Sodium 133 mmol/L (136-145)
[2019-05-05] MEDS ORDERED: Artificial Tear Sol 15 ML BOT EA EYE PRN (05:40)
[2019-05-05] MEDS: Propofol 1,000 MG/100 ML VIAL IV PRN ×2 (05:56→19:30)
[2019-05-05] MEDS: Heparin 5,000 UNITS/ML VIAL SC SCH ×2 (07:29→22:18)
--- NOTE | 2019-05-05 09:08 | RAD ---
PORTABLE CHEST: HISTORY: Respiratory distress. COMPARISON: Prior day's study. FINDINGS: Heart size is enlarged. Endotracheal and NG tubes are in satisfactory position. The interstitial al veolar lung markings appear essentially stable as compared to the prior examination. Slightly promin ent hilar regions are also seen. IMPRESSION: Cardiomegaly with stable appearance to the interstitial alveolar lung change. Prominent hilar and me diastinal density seen. This may jut all be related to technique. The possibility of underlying med iastinal adenopathy would be a consideration. Followup at some point with a PA and lateral chest gladys m would be helpful in assessment. Overall findings at this point are stable as compared to the previ ous study. POS: OFF
--- NOTE | 2019-05-05 09:38 | PRG ---
DATE OF SERVICE: 05/05/2019 SUBJECTIVE: Nikita is doing better. He is currently on mechanical ventilation. Awake and alert. OBJECTIVE: VITAL SIGNS: Temperature is 98.3, pulse 103, blood pressure 105/48, O2 sats 94%. Intake, last 24 hours, 1598; output 4800. HEENT: Unremarkable except for the endotracheal tube. NECK: No JVD. LUNGS: Clear anteriorly. CARDIAC: S1 and S2. Regular. ABDOMEN: Obese, soft, and nontender. EXTREMITIES: Lymphedema. LABORATORY DATA: Sodium 133, potassium 4.2, BUN 41, creatinine 3.4, and glucose 93. IMAGING STUDIES: His chest x-ray continues to show some pulmonary edema. ASSESSMENT: 1. Fluid overload, which is rapidly improving with continued dialysis and ultrafiltration. 2. Acute hypoxic respiratory failure. 3. Diastolic cardiac dysfunction. 4. Obesity. PLAN: 1. Decrease pressure support. 2. Plan to extubate tomorrow if he has a good day today and we will see how he does from that point forward. Job ID: [id number]
--- NOTE | 2019-05-05 13:39 | PRG ---
DATE OF SERVICE: 05/05/2019 SUBJECTIVE: A 48-year-old gentleman being seen for end-stage renal disease. The patient denies any nausea, vomiting, or chest pain. OBJECTIVE: CONSTITUTIONAL: The patient is resting. VITAL SIGNS: Pulse 115, breathing 16, blood pressure 112/61. GENERAL APPEARANCE AND MENTAL STATUS: Fair. HEAD/NECK: Normocephalic. Atraumatic. EYES: EOMI. No deformity. EARS: Clear. No ulcers. NOSE: Intact. No lesions. MOUTH: Clear. No discharge. THROAT: Clear. No exudate. LUNGS: Clear. No crackles. CARDIAC: S1, S2. No rub. ABDOMEN: Benign. Bowel sounds positive. GENITALIA/RECTUM: Noguera absent. BACK/EXTREMITIES: Edema 0+. NEUROLOGICAL: Alert and motor intact. LABORATORY DATA: Reviewed. ASSESSMENT AND PLAN: 1. Stage 6 chronic kidney disease. Plan: Dialysis. 2. Hypertension. Stable. 3. Anemia. Stable. 4. Congestive heart failure and respiratory failure. Plan: Ultrafiltration. Job ID: [id number]
--- NOTE | 2019-05-05 15:29 | PRG ---
DATE OF SERVICE: 05/05/2019 SUBJECTIVE: The patient is seen and examined at the bedside. He is off sedation. He is able to communicate with the board, writing on it. He is asking how much longer he is going to be on the ventilator. We hope that in the next day or 2 after daily dialysis, we would be able to pull his endotracheal tube out. OBJECTIVE: VITAL SIGNS: Blood pressure is 114/45, pulse is 102, respiratory rate is 22, O2 saturations is 89%. His FiO2 is down to 35%. HEENT: His sclerae are nonicteric. He is orally intubated. NECK: Obese. LUNGS: Breath sounds diminished at both bases. HEART: S1 and S2, somewhat tachycardic. No S3. No S4. ABDOMEN: Obese, soft, nontender. EXTREMITIES: Massive lymphedema present, somewhat diminished since he was started on dialysis. NEUROLOGIC: He follows my commands. He understands. LABORATORY DATA: Labs showed sodium of 133, potassium 4.2, chloride 92, CO2 of 30, BUN 41, creatinine 3.47. Microbiology, no growth on blood cultures. IMAGING STUDIES: 1. Chest x-ray done this morning showed cardiomegaly with an interstitial and alveolar lung changes. 2. Chest x-ray looks very similar to the previous one, which was taken yesterday. IMPRESSION: 1. Acute on chronic respiratory failure, requiring mechanical ventilation. We will continue that in the next, I believe 22 to 48 hours. Talent Management Manager will make decision about extubation. 2. Diastolic heart failure. 3. Morbid obesity. 4. Acute renal failure, on hemodialysis daily. 5. Fluid overload secondary to acute renal failure. 6. Atrial flutter, rate controlled with Cardizem drip. PLAN: Plan is to continue dialysis and continue supportive care. Continue mechanical ventilation. Continue Cardizem drip, and most likely, he will be extubated by Dr. Negrete in the next 24 to 48 hours. Job ID: [id number]
[2019-05-05] MEDS: Acetaminophen 650 MG/20.3 ML UDCUP PO PRN (22:18)
[2019-05-06 05:10] LABS: Anion Gap 13 mmol/L (10-20); BUN (Urea Nitrogen) 38 mg/dL (8.9-20.6); Calc. Creatinine Clearance 81 mL/min (70-130); Calcium 9.6 mg/dL (7.8-10.44); Carbon Dioxide 30 mmol/L (22-29); Chloride 94 mmol/L (98-107); Estimated GFR-MDRD 19; Glucose 96 mg/dL (70-105); Potassium 4.1 mmol/L (3.5-5.1); Sodium 133 mmol/L (136-145)
[2019-05-06] MEDS: Heparin 5,000 UNITS/ML VIAL SC SCH ×2 (07:37→22:55)
--- NOTE | 2019-05-06 07:58 | RAD ---
Chest AP view INDICATION: Intubation and pneumonia COMPARISON: May 05, 2019 FINDINGS: Tubes and Lines: Stable. Lungs:Perihilar interstitial and airspace opacities persist. Cardiac silhouette pulmonary vasculature:Cardiomegaly and pulmonary vascular congestion persists. Pleural spaces: Tiny pleural effusions persists Upper abdomen:No abnormality seen. Osseous structures: No acute abnormality. IMPRESSION: Stable exam.
--- NOTE | 2019-05-06 09:36 | PRG ---
DATE OF SERVICE: 05/06/2019 TIME SPENT: 35 minutes of critical care time. SUBJECTIVE: The patient is awake, alert. He is doing a spontaneous breathing trial this morning and is tolerating it well. OBJECTIVE: VITAL SIGNS: His temperature is 98.3, pulse 90, blood pressure 94/45, and O2 saturation 98%. Intake for 24 hours 2195, output 5600 by dialysis. HEENT: Unremarkable. NECK: No JVD. LUNGS: Clear anteriorly. CARDIAC: S1 and S2. Regular. ABDOMEN: Obese, soft. EXTREMITIES: Less edema. IMAGING DATA: His chest x-ray shows continued mild pulmonary edema. LABORATORY DATA: Sodium 133, potassium 4.1, chloride 94, CO2 of 30, BUN 30, creatinine 6.4, and glucose 96. ASSESSMENT: 1. Acute respiratory failure, requiring mechanical ventilation. 2. Pulmonary edema. 3. Acute renal failure with gross fluid overload - now has had about 40 pounds of fluid removes. 4. Morbid obesity. 5. Diastolic cardiac dysfunction. PLAN: 1. Extubation trial with high-flow oxygen and see if he tolerates that. 2. I have purged some of the unnecessary orders from the MAR. Job ID: [id number]
--- NOTE | 2019-05-06 10:52 | PRG ---
DATE OF SERVICE: 05/06/2019 SUBJECTIVE: A 48-year-old gentleman, being seen for end-stage renal disease. The patient denies any nausea, vomiting, or chest pain. OBJECTIVE: CONSTITUTIONAL: The patient is awake, alert. VITAL SIGNS: Afebrile, pulse 101, breathing 16, blood pressure . GENERAL APPEARANCE AND MENTAL STATUS: Fair. HEAD/NECK: Normocephalic. Atraumatic. EYES: EOMI. No deformity. EARS: Clear. No ulcers. NOSE: Intact. No lesions. MOUTH: Clear. No discharge. THROAT: Clear. No exudate. LUNGS: Clear. No crackles. CARDIAC: S1, S2. No rub. ABDOMEN: Benign. Bowel sounds positive. GENITALIA/RECTUM: Noguera absent. BACK/EXTREMITIES: Edema 0+. NEUROLOGICAL: Alert and motor intact. SKIN: LYMPHATICS: LABORATORY DATA: Hemoglobin 11.6. ASSESSMENT AND PLAN: 1. Stage 6 chronic kidney disease, plan dialysis. 2. . 3. Anemia, stable. 4. ATN. Continue dialysis. 5. Prognosis is poor. Job ID: [id number]
--- NOTE | 2019-05-06 13:35 | PDOC.PN ---
- Subjective Encounter Start Date: 05/06/19 Encounter Start Time: 12:45 Subjective: is on high flow oxygen, got extubated this am -: awake, responds to verbal stimuli, not sure if has a hearing issue - Objective Resuscitation Status - Order Detail: 05/01/19 22:38 Resuscitation Status Routine Resuscitation Status: FULL: Full Resuscitation Additional comments: Revocation form signed by Linda Valencia on 05/01/19 at 1545 MAR Reviewed: Yes Vital Signs & Weight: Vital Signs (12 hours) Pulse Resp BP Pulse Ox 05/06/19 11:03 95 20 90 L 05/06/19 08:05 88 L 05/06/19 07:22 88 95/45 L 05/06/19 07:21 99 19 93 L 05/06/19 07:16 92 L 05/06/19 06:00 18 05/06/19 04:00 17 05/06/19 02:14 77 106/48 L 05/06/19 02:00 20 Weight Admit Weight 488 lb 9.6 oz Weight 462 lb Most Recent Monitor Data Heart Rate from ECG 96 NIBP 102/62 NIBP BP-Mean 75 Respiration from ECG 22 SpO2 90 I&O: 05/05/19 05/06/19 05/07/19 06:59 06:59 06:59 Intake Total 1598 2195 300 Output Total 0 0 0 Balance 1598 2195 300 Result Diagrams: 05/03/19 04:09 05/06/19 04:21 Phys Exam - Physical Examination HEENT: PERRLA, moist MMs Neck: no JVD, supple Respiratory: no wheezing, no rales Cardiovascular: RRR, no significant murmur Gastrointestinal: soft, non-tender, positive bowel sounds Musculoskeletal: pulses present, edema present Neurological: non-focal, moves all 4 limbs Dx/Plan (1) Acute on chronic respiratory failure with hypoxia and hypercapnia Code(s): J96.21 - ACUTE AND CHRONIC RESPIRATORY FAILURE WITH HYPOXIA; J96.22 - ACUTE AND CHRONIC RESPIRATORY FAILURE WITH HYPERCAPNIA Status: Acute Comment : extubated 05/06/2019 (2) Acute on chronic diastolic ACC/AHA stage C congestive heart failure Code(s): I50.33 - ACUTE ON CHRONIC DIASTOLIC (CONGESTIVE) HEART FAILURE Status : Acute (3) Morbid obesity with BMI of 60.0-69.9, adult Code(s): E66.01 - MORBID (SEVERE) OBESITY DUE TO EXCESS CALORIES; Z68.44 - BODY MASS INDEX (BMI) 60.0-69.9, ADULT Status: Acute Comment: has life threatening obesity (4) Atrial flutter Code(s): I48.92 - UNSPECIFIED ATRIAL FLUTTER Status: Acute Comment: in sinus this am (5) Volume overload Code(s): E87.70 - FLUID OVERLOAD, UNSPECIFIED Status: Acute Comment: resolving (6) HTN (hypertension) Code(s): I10 - ESSENTIAL (PRIMARY) HYPERTENSION Status: Chronic Qualifiers: (7) Lymphedema of both lower extremities Code(s): I89.0 - LYMPHEDEMA, NOT ELSEWHERE CLASSIFIED Status: Chronic Comment: chronic condition (8) Pickwickian syndrome Code(s): E66.2 - MORBID (SEVERE) OBESITY WITH ALVEOLAR HYPOVENTILATION Status : Chronic - Plan is on high flow oxygen -: palliative care for code status, has life threatening obesity, may not surv -: -amber code blue given multiple comorbid issues plus deconditioning -: PT to mobilize him as tolerated -: is on cardizem drip, may switch to oral, await opinion * . Add aspirin, continue nebs, heparin for dvt prophylaxis. Poor prognosis. Likely may need placement either swing/snf. Review of Systems - Medications/Allergies Allergies/Adverse Reactions: Allergies Allergy/AdvReac Type Severity Reaction Status Date / Time No Known Drug Allergies Allergy Verified 03/22/19 09:37 Medications: Current Medications Acetaminophen (Tylenol) 650 mg AR Q4H PRN PRN Reason: Headache/Fever/Mild Pain (1-3) Acetaminophen (Tylenol Elixir) 650 mg PO Q4H PRN PRN Reason: Headache/Fever or Pain 1-3 Last Admin: 05/05/19 22:18 Dose: 650 mg Albuterol/Ipratropium (Duoneb) 3 ml NEB Q4H PRN PRN Reason: SOB &/or Wheezing Albuterol/Ipratropium (Duoneb) 3 ml NEB [id number] RAIN Last Admin: 05/06/19 11:03 Dose: 3 ml Lipase/Protease/[place]ylase ([place] [id number]) 1 cap FS .PER PROTOCOL PRN PRN Reason: TUBE OCCLUSION PROTOCOL Artificial Tears (Liquitears 15ml Bottle) 0 drop EA EYE PRN PRN PRN Reason: Dry Eyes Last Admin: 05/05/19 05:52 Dose: 1 drop Aspirin (Aspirin Chewable) 81 mg PO DAILY [facility] Heparin Sodium (Porcine) (Heparin) 5,000 units SC BID [facility] Last Admin: 05/06/19 07:37 Dose: 5,000 units Diltiazem HCl 125 mg/Miscellaneous Medication 1 each/ Sodium Chloride 125 mls @ 15 mls/hr IVPB INF [facility]; Protocol Last Admin: 05/06/19 04:25 Dose: 125 mls Discontinue Previous Narcotic Pain Medications And Benzodiazepines 1 each FS .ONE [facility] Stop: 05/25/19 02:23 Ondansetron HCl (Zofran Odt) 4 mg PO Q6H PRN PRN Reason: Nausea/Vomiting Ondansetron HCl (Zofran) 4 mg IVP Q6H PRN PRN Reason: Nausea/Vomiting Sodium Bicarbonate (Bicarbonate, Sodium) 650 mg PER TUBE .PER PROTOCOL PRN PRN Reason: ENTERAL TUBE OCCLUSION Sodium Chloride (Flush - Normal Saline) 10 ml IVF Q12HR [facility] Last Admin: 05/06/19 07:37 Dose: 10 ml Sodium Chloride (Flush - Normal Saline) 10 ml IVF PRN PRN PRN Reason: Saline Flush
[2019-05-06] MEDS: Aspirin Chewable 81 MG TAB PO SCH (15:09)
[2019-05-06] MEDS: Sodium Bicarbonate Tab 325 MG TAB PER TUBE PRN ×2 (17:13→22:55)
[2019-05-06] MEDS ORDERED: Ondansetron PF 4 MG/2 ML Vial SLOW IVP PRN (20:09)
[2019-05-07 04:43] LABS: Anion Gap 15 mmol/L (10-20); BUN (Urea Nitrogen) 35 mg/dL (8.9-20.6); Calc. Creatinine Clearance 0 mL/min (70-130); Calcium 9.8 mg/dL (7.8-10.44); Carbon Dioxide 29 mmol/L (22-29); Chloride 94 mmol/L (98-107); Estimated GFR-MDRD 20; Glucose 85 mg/dL (70-105); Potassium 4.2 mmol/L (3.5-5.1); Sodium 134 mmol/L (136-145)
[2019-05-07] MEDS ORDERED: CEFAZOLIN 2 GM in Premix Bag 1 BAG IVPB SCH (04:45)
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
[2019-05-07] MEDS: Heparin 5,000 UNITS/ML VIAL SC SCH ×2 (08:44→19:49)
[2019-05-07] MEDS: Aspirin Chewable 81 MG TAB PO SCH (08:44)
[2019-05-07] MEDS ORDERED: Pantoprazole 40 MG VIAL IVP SCH (08:45)
--- NOTE | 2019-05-07 09:34 | PRG ---
DATE OF SERVICE: 05/07/2019 SUBJECTIVE: The patient was extubated yesterday. He is actually doing very well, talkative. He is requiring BiPAP at night for his JULIA and on high-flow oxygen during the day. OBJECTIVE: VITAL SIGNS: On exam, his temperature 98.3, O2 sats 93% on high-flow, blood pressure 132/66. HEENT: Unremarkable. NECK: No JVD. LUNGS: Fairly clear anteriorly. CARDIAC: S1, S2. Regular. ABDOMEN: Obese, soft, nontender. EXTREMITIES: Less edema. LABORATORY DATA: Sodium 134, potassium 4.2, BUN 35, creatinine 3.4. ASSESSMENT: 1. Status post respiratory failure, requiring mechanical ventilation. 2. Severe obstructive sleep apnea. 3. Acute on chronic renal failure. PLAN: Tunneled dialysis catheter placement and CVC placement today. Continue BiPAP at night. Continue high-flow oxygen. He needs to remain in the ICU because of the acuity of care. Job ID: [id number]
--- NOTE | 2019-05-07 09:34 | ULT ---
DOPPLER ULTRASOUND VASCULAR STRUCTURES BILATERAL UPPER EXTREMITIES: Date: 05/07/19 COMPARISON: None. HISTORY: Renal failure. TECHNIQUE: Multiplanar grayscale sonographic imaging of the vascular structures of the upper extremit ies obtained with color flow and spectral analysis. FINDINGS: The internal jugular vein, subclavian vein, and axillary vein is patent bilaterally. VESSEL DIAMETER (mm) Right Brachial Artery 5.6 Right Radial Artery 3.6 Right Ulnar Artery 2.4 Left Brachial Artery 5.2 Left Radial Artery 3.9 Left Ulnar Artery 2.7 RIGHT CEPHALIC VEIN: Above Elbow Proximal 4.1 Above Elbow Mid 3.8 Above Elbow Distal 4.6 At Elbow 4.7 Below Elbow Proximal 2.8 Below Elbow Mid 3.6 Below Elbow Distal 1.9 RIGHT BASILIC VEIN: Above Elbow Proximal 6.2 Above Elbow Mid 8.6 Above Elbow Distal 6.6 At Elbow 7.2 Below Elbow Proximal 2.9 Below Elbow Mid 3.2 Below Elbow Distal 2.4 LEFT BASILIC VEIN: Above Elbow Proximal 8.0 Above Elbow Mid 7.5 Above Elbow Distal 6.7 At Elbow 5.8 Below Elbow Proximal 2.2 Below Elbow Mid 2.5 Below Elbow Distal 2.7 LEFT CEPHALIC VEIN: Above Elbow Proximal 2.7 Above Elbow Mid 2.7 Above Elbow Distal 3.0 At Elbow 7.5 Below Elbow Proximal 3.2 Below Elbow Mid 3.3 Below Elbow Distal 3.0 IMPRESSION: Vein mapping for dialysis access as detailed above. Transcribed Date/Time: 05/07/2019 9:28 AM
[2019-05-07] MEDS ORDERED: Heparin 0 ML ONE (09:48)
[2019-05-07] MEDS ORDERED: Bupivacaine/Epinephrine 0.25% 30 ML VIAL ONE (09:48)
[2019-05-07] MEDS ORDERED: Lidocaine 2% PF 5 ML VIAL ONE (09:48)
[2019-05-07] MEDS ORDERED: Sodium Chloride 0.9% 10 ML ONE (09:48)
[2019-05-07] MEDS ORDERED: Heparin 10,000 UNITS/1 ML VIAL ONE (09:53)
[2019-05-07] MEDS ORDERED: Propofol 1,000 MG/100 ML VIAL IV ONE (09:55)
[2019-05-07] MEDS ORDERED: Fentanyl 100 MCG/2 ML VIAL ONE (09:55)
[2019-05-07] MEDS ORDERED: Sodium Chloride 0.9% 0 ML ONE (10:14)
[2019-05-07] MEDS ORDERED: Bisacodyl 10 MG SUPP PR PRN (11:06)
[2019-05-07] MEDS ORDERED: Heparin 1,000 UNITS/ML VIAL ONE (11:11)
[2019-05-07] MEDS ORDERED: Ketamine 50 MG/ML (10ML VIAL) ONE (11:29)
[2019-05-07] MEDS ORDERED: Mag-Al 1200 mg/1200 mg/30 ML UDCUP PO PRN (13:34)
--- NOTE | 2019-05-07 13:37 | PDOC.PN ---
- Subjective Encounter Start Date: 05/07/19 Encounter Start Time: 08:10 Subjective: awake, on high flow oxygen -: is getting vein mapping done at bedside - Objective Resuscitation Status - Order Detail: 05/01/19 22:38 Resuscitation Status Routine Resuscitation Status: FULL: Full Resuscitation Additional comments: Revocation form signed by Linda Valencia on 05/01/19 at 1545 MAR Reviewed: Yes Vital Signs & Weight: Vital Signs (12 hours) Temp Pulse Resp Pulse Ox 05/07/19 11:00 98.8 F 05/07/19 10:55 101 H 20 90 L 05/07/19 08:18 93 L 05/07/19 08:12 87 23 H 93 L 05/07/19 08:00 98.3 F 91 L 05/07/19 02:38 76 Weight Admit Weight 488 lb 9.6 oz Weight 7.281 oz Most Recent Monitor Data Heart Rate from ECG 99 NIBP 177/92 NIBP BP-Mean 120 Respiration from ECG 21 SpO2 94 I&O: 05/06/19 05/07/19 05/08/19 06:59 06:59 06:59 Intake Total 2195 1612 Output Total 0 0 0 Balance 2195 1612 0 Result Diagrams: 05/03/19 04:09 05/07/19 04:02 Phys Exam - Physical Examination HEENT: PERRLA, moist MMs Neck: no JVD, supple Respiratory: no wheezing, no rales Cardiovascular: RRR, no significant murmur Gastrointestinal: soft, non-tender, positive bowel sounds Musculoskeletal: pulses present, edema present Neurological: non-focal, moves all 4 limbs Psychiatric: A&O x 3 Dx/Plan (1) Acute on chronic respiratory failure with hypoxia and hypercapnia Code(s): J96.21 - ACUTE AND CHRONIC RESPIRATORY FAILURE WITH HYPOXIA; J96.22 - ACUTE AND CHRONIC RESPIRATORY FAILURE WITH HYPERCAPNIA Status: Acute Comment : extubated 05/06/2019 (2) Acute on chronic diastolic ACC/AHA stage C congestive heart failure Code(s): I50.33 - ACUTE ON CHRONIC DIASTOLIC (CONGESTIVE) HEART FAILURE Status : Acute (3) Morbid obesity with BMI of 60.0-69.9, adult Code(s): E66.01 - MORBID (SEVERE) OBESITY DUE TO EXCESS CALORIES; Z68.44 - BODY MASS INDEX (BMI) 60.0-69.9, ADULT Status: Chronic Comment: has life threatening obesity (4) Atrial flutter Code(s): I48.92 - UNSPECIFIED ATRIAL FLUTTER Status: Acute Comment: in sinus this am, paroxysmal (5) Volume overload Code(s): E87.70 - FLUID OVERLOAD, UNSPECIFIED Status: Acute Comment: resolving (6) HTN (hypertension) Code(s): I10 - ESSENTIAL (PRIMARY) HYPERTENSION Status: Chronic Qualifiers: (7) Lymphedema of both lower extremities Code(s): I89.0 - LYMPHEDEMA, NOT ELSEWHERE CLASSIFIED Status: Chronic Comment: chronic condition (8) Pickwickian syndrome Code(s): E66.2 - MORBID (SEVERE) OBESITY WITH ALVEOLAR HYPOVENTILATION Status : Chronic - Plan is doing well on high flow Oxygen during day and bipap at night -: PT to start therapy, oob to chair and mobilize as tolerated -: protonix, nebs, aspirin, cardizem drip -: will HD tunnelled access today -: CM for help with placement once he is off high flow oxygen * . Palliative care to help with code status, has life threatening obesity with high risk for resp depression. Review of Systems - Medications/Allergies Allergies/Adverse Reactions: Allergies Allergy/AdvReac Type Severity Reaction Status Date / Time No Known Drug Allergies Allergy Verified 03/22/19 09:37 Medications: Current Medications Acetaminophen (Tylenol) 650 mg TN Q4H PRN PRN Reason: Headache/Fever/Mild Pain (1-3) Acetaminophen (Tylenol Elixir) 650 mg PO Q4H PRN PRN Reason: Headache/Fever or Pain 1-3 Last Admin: 05/05/19 22:18 Dose: 650 mg Al Hydroxide/Mg Hydroxide (Maalox) 30 ml PO Q4H PRN PRN Reason: Heartburn or Indigestion Albuterol/Ipratropium (Duoneb) 3 ml NEB Q4H PRN PRN Reason: SOB &/or Wheezing Albuterol/Ipratropium (Duoneb) 3 ml NEB [id number] RAIN Last Admin: 05/07/19 10:55 Dose: 3 ml Lipase/Protease/Amylase ([place] [id number]) 1 cap FS .PER PROTOCOL PRN PRN Reason: TUBE OCCLUSION PROTOCOL Artificial Tears (Liquitears 15ml Bottle) 0 drop EA EYE PRN PRN PRN Reason: Dry Eyes Last Admin: 05/05/19 05:52 Dose: 1 drop Aspirin (Aspirin Chewable) 81 mg PO DAILY [facility] Last Admin: 05/07/19 08:44 Dose: Not Given Bisacodyl (Dulcolax) 10 mg TN Q8H PRN PRN Reason: Constipation Docusate Sodium (Colace Liquid) 100 mg PO BID [facility] Heparin Sodium (Porcine) (Heparin) 5,000 units SC BID [facility] Last Admin: 05/07/19 08:44 Dose: Not Given Diltiazem HCl 125 mg/Miscellaneous Medication 1 each/ Sodium Chloride 125 mls @ 15 mls/hr IVPB INF RAIN; Protocol Last Admin: 05/07/19 06:11 Dose: 125 mls Cefazolin Sodium/Dextrose 2 gm (/ Device) 50 mls @ 100 mls/hr IVPB ONCALL-OR ARIN Discontinue Previous Narcotic Pain Medications And Benzodiazepines 1 each FS .ONE RAIN Stop: 05/25/19 02:23 Ondansetron HCl (Zofran Odt) 4 mg PO Q6H PRN PRN Reason: Nausea/Vomiting Ondansetron HCl (Zofran) 8 mg SLOW IVP Q6H PRN PRN Reason: Nausea/Vomiting Pantoprazole Sodium (Protonix) 40 mg PO DAILY [facility] Polyethylene Glycol (Miralax) 17 gm PO DAILY [facility] Sodium Bicarbonate (Bicarbonate, Sodium) 650 mg PER TUBE .PER PROTOCOL PRN PRN Reason: ENTERAL TUBE OCCLUSION Last Admin: 05/06/19 22:55 Dose: 650 mg Sodium Chloride (Flush - Normal Saline) 10 ml IVF Q12HR RAIN Last Admin: 05/07/19 09:30 Dose: 10 ml Sodium Chloride (Flush - Normal Saline) 10 ml IVF PRN PRN PRN Reason: Saline Flush Last Admin: 05/07/19 09:30 Dose: 10 ml
--- NOTE | 2019-05-07 14:59 | PDOC.OP ---
Operative Note - Operative Note Operative Note: DATE OF PROCEDURE: 05/07/2019 PROCEDURE: Placement of right internal jugular tunneled hemodialysis catheter and left internal jugular central venous catheter with ultrasound and fluoroscopic guidance. SURGEON: Sheri García M.D. PREOPERATIVE DIAGNOSIS: Renal failure. POSTOPERATIVE DIAGNOSIS: Renal failure. HISTORY: Patient who presented in renal failure, respiratory failure, heart failure and fluid overload. He has improved clinically after dialysis via a femoral catheter. A tunneled hemodialysis catheter for ongoing dialysis has been requested by the patients organic extractions technician. In addition, due to the patient's super morbid obesity he has very limited peripheral IV access so a central venous catheter has been requested as well. PROCEDURE: After informed consent was obtained and appropriate preoperative antibiotics were administered, the patient was taken to the Operating Room, placed in the supine position and monitored anesthesia care was administered. The neck and chest were prepped and draped in a standard sterile fashion and the patient placed in Trendelenburg position. A sterile ultrasound probe was used to identify the patent compressible right IJ vein which was accessed under direct ultrasound guidance. A wire was threaded through the needle and confirmed by ultrasound to be within the patent compressible vessel with the tip in the vena cava by fluoroscopy. Local anesthesia was infused to the skin and subcutaneous tissues of the right neck and chest. An infraclavicular incision was made and a catheter tunneled from the infraclavicular to the right IJ access site. The right IJ was sequentially dilated over the wire following which a dilator and sheath were placed over the wire and the dilator and wire removed leaving the sheath in place. The catheter was tunneled through the sheath which was then split and removed leaving the catheter in place. This was confirmed by fluoroscopy to be in good position in the superior vena cava with no kinking of the course of the catheter. Both ports easily aspirated dark venous nonpulsatile blood and easily flushed without resistance. Heparin was instilled to the quantity specified on the hub, and the hub was secured to the skin with 3-0 nylon sutures. The skin incision at the neck was closed in two layers with 4-0 Monocryl suture and Dermabond dressings were placed. The skin at the exit site was snugged up around the catheter with 4-0 Monocryl suture and Dermabond was placed there as well. Once the Dermabond was dry, a Biopatch and Tegaderm dressing was placed at the exit site. Attention was then turned to the left internal jugular central venous catheter placement. Local anesthesia was infused the skin and subcutaneous tissues tissues overlying the patent compressible left internal jugular vein.. The vein was identified and accessed under ultrasound guidance and a wire threaded into the vein. The wire was confirmed by ultrasound to be within the patent compressible vein in the neck, and with the tip in the superior vena cava by fluoroscopy. The skin was incised the tract was dilated over the wire. A central venous catheter was placed over the wire and secured to the skin, and all 3 ports easily aspirated and easily flushed. The catheter was secured to the skin and a Biopatch and Tegaderm dressing was placed. The patient was taken to Recovery in good condition. Estimated blood loss was minimal. There were no complications. There were no specimens.
[2019-05-07] MEDS: traMADol HCl 50 MG TAB PO PRN ×2 (15:14→20:46)
--- NOTE | 2019-05-07 15:34 | RAD ---
CHEST 1 VIEW: Date: 05/07/19 HISTORY: Hemodialysis catheter and central venous catheter. COMPARISON: Chest radiograph prior day. FINDINGS: A dialysis catheter is in place with tip somewhat high in the mid SVC. Patient has been extubated. Th ere is some circumferential narrowing of the trachea. A left IJ central venous catheter tip is in inf erior SVC. Heart size is enlarged. Moderate to severe edema. Moderate effusions. IMPRESSION: 1. Interval extubation. 2. Cardiomegaly, severe edema, and moderate effusions. 3. Long segmental narrowing of the trachea may be from scarring from prior intubation, although seem s worse than the September 2018 study. Some mass effect cannot be totally excluded from hematoma. CT m ay be beneficial if clinically warranted. POS: HOME
[2019-05-07] MEDS: Docusate Sodium 100 MG/10 ML UDCUP PO SCH (19:49)
[2019-05-08 06:13] LABS: Anion Gap 15 mmol/L (10-20); BUN (Urea Nitrogen) 32 mg/dL (8.9-20.6); Calc. Creatinine Clearance 0 mL/min (70-130); Calcium 9.4 mg/dL (7.8-10.44); Carbon Dioxide 28 mmol/L (22-29); Chloride 96 mmol/L (98-107); Estimated GFR-MDRD 20; Glucose 81 mg/dL (70-105); Sodium 135 mmol/L (136-145)
[2019-05-08] MEDS: traMADol HCl 50 MG TAB PO PRN ×3 (06:29→19:32)
[2019-05-08] MEDS: Heparin 5,000 UNITS/ML VIAL SC SCH ×2 (09:01→19:30)
[2019-05-08] MEDS: Docusate Sodium 100 MG/10 ML UDCUP PO SCH ×2 (09:01→19:30)
[2019-05-08] MEDS: Polyethylene Glycol 3350 17 GM Packet PO SCH (09:01)
[2019-05-08] MEDS: Aspirin Chewable 81 MG TAB PO SCH (09:02)
--- NOTE | 2019-05-08 09:24 | PRG ---
DATE OF SERVICE: 05/08/2019 SUBJECTIVE: Mr. Morgan is in good spirits this morning. He had his tunneled dialysis catheter and triple-lumen catheter placed yesterday by Dr. García. He says he is starting to pee again. OBJECTIVE: VITAL SIGNS: On exam, temperature is 98.0, pulse 99, blood pressure 131/74, and O2 saturation running in the high 80s to low 90s. Intake for 24 hours 1258, output 4800. HEENT: Unremarkable. NECK: No JVD. LUNGS: Clear anteriorly. CARDIAC: S1 and S2. Regular. ABDOMEN: Morbidly obese. EXTREMITIES: Edematous. LABORATORY DATA: Sodium of 135, potassium 4, chloride 96, CO2 of 28, BUN 32, creatinine 3.4, and glucose 81. IMAGING DATA: Chest x-ray shows bilateral infiltrative changes consistent with pulmonary edema that was obtained prior to dialysis today. ASSESSMENT: 1. Respiratory failure, requiring mechanical ventilation. 2. Atrial flutter, controlled on diltiazem. 3. Morbid obesity. 4. Obstructive sleep apnea. 5. Acute kidney injury. PLAN: 1. Continue hemodialysis. 2. Continue high-flow oxygen during the day and BiPAP during the night. 3. Diltiazem for heart rate control. 4. Advance diet as tolerated. 5. Continue physical therapy. 6. Ordinarily, I would recommend LTAC placement, but the patient has Medicaid, so he will not be able to go to an LTAC. I would continue to leave the patient in the CCU for the indefinite future. Job ID: [id number]
--- NOTE | 2019-05-08 10:38 | PDOC.PN ---
- Subjective Encounter Start Date: 05/08/19 Encounter Start Time: 10:37 Mr. Morgan was seen today in follow-up of Respiratory failure. He does not have any new complaints. He is still on high flow oxygen. He has not gotten up yet to try to walk. He denies any chest pain. - Objective Resuscitation Status - Order Detail: 05/01/19 22:38 Resuscitation Status Routine Resuscitation Status: FULL: Full Resuscitation Additional comments: Revocation form signed by Linda Valencia on 05/01/19 at 1545 MAR Reviewed: Yes Vital Signs & Weight: Vital Signs (12 hours) Temp Pulse Resp Pulse Ox 05/08/19 08:00 94 L 05/08/19 07:59 99 20 94 L 05/08/19 07:54 89 L 05/08/19 07:00 97.8 F 05/08/19 04:00 98.0 F 05/08/19 02:50 86 14 95 05/08/19 00:00 98.0 F Weight Admit Weight 488 lb 9.6 oz Weight 426 lb Most Recent Monitor Data Heart Rate from ECG 99 NIBP 117/66 NIBP BP-Mean 83 Respiration from ECG 21 SpO2 86 I&O: 05/07/19 05/08/19 05/09/19 06:59 06:59 06:59 Intake Total 1612 1258 600 Output Total 0 0 Balance 1612 1258 600 Result Diagrams: 05/03/19 04:09 05/08/19 05:37 Phys Exam - Physical Examination HEENT: PERRLA + coarse breath sounds, and some rhonchi at the bases Cardiovascular: RRR, no significant murmur, no rub Gastrointestinal: soft, non-tender, no distention, positive bowel sounds Musculoskeletal: pulses present, edema present + edema bilatertally and chronic venous stasis changes Neurological: non-focal, normal sensation Dx/Plan (1) Acute on chronic respiratory failure with hypoxia and hypercapnia Code(s): J96.21 - ACUTE AND CHRONIC RESPIRATORY FAILURE WITH HYPOXIA; J96.22 - ACUTE AND CHRONIC RESPIRATORY FAILURE WITH HYPERCAPNIA Status: Acute Comment : extubated 05/06/2019 (2) Acute on chronic diastolic ACC/AHA stage C congestive heart failure Code(s): I50.33 - ACUTE ON CHRONIC DIASTOLIC (CONGESTIVE) HEART FAILURE Status : Acute (3) Morbid obesity with BMI of 50.0-59.9, adult Code(s): E66.01 - MORBID (SEVERE) OBESITY DUE TO EXCESS CALORIES; Z68.43 - BODY MASS INDEX (BMI) 50-59.9, ADULT Status: Chronic (4) Atrial flutter Code(s): I48.92 - UNSPECIFIED ATRIAL FLUTTER Status: Acute Comment: in sinus this am, paroxysmal (5) HTN (hypertension) Code(s): I10 - ESSENTIAL (PRIMARY) HYPERTENSION Status: Chronic Qualifiers: (6) End stage renal disease on dialysis Code(s): N18.6 - END STAGE RENAL DISEASE; Z99.2 - DEPENDENCE ON RENAL DIALYSIS Status: Acute - Plan * Acute on chronic respiratory failure- improving, however he continues to require high flow oxygen * Continue fluid removal with dialysis * Continue BiPAP as needed * ESRD- continue dialysis * HTN - blood pressure is stable * Atrial flutter- will transition to oral Cardizem, and plan is for ablation on Saturday.
--- NOTE | 2019-05-08 10:51 | PRG ---
DATE OF SERVICE: 05/08/2019 SUBJECT: A 48-year-old gentleman being seen for end-stage renal disease. The patient is intubated. Denies any complaint. OBJECTIVE: CONSTITUTIONAL: The patient is resting. VITAL SIGNS: Pulse 95, breathing 16, and blood pressure 170/66. GENERAL APPEARANCE AND MENTAL STATUS: Fair. HEAD/NECK: Normocephalic. Atraumatic. EYES: EOMI. No deformity. EARS: Clear. No ulcers. NOSE: Intact. No lesions. MOUTH: Clear. No discharge. THROAT: Clear. No exudate. LUNGS: Clear. No crackles. CARDIAC: S1, S2. No rub. ABDOMEN: Benign. Bowel sounds positive. GENITALIA/RECTUM: Noguera absent. BACK/EXTREMITIES: Edema 0+. NEUROLOGICAL: Alert and motor intact. SKIN: LYMPHATICS: LABORATORY DATA: Labs reviewed. ASSESSMENT AND PLAN: 1. Stage 6 chronic kidney disease, plan dialysis. 2. Hypertension, stable. 3. Anemia, stable. 4. Congestive heart failure, plan dialysis. Prognosis remains poor. Job ID: [id number]
--- NOTE | 2019-05-08 11:05 | PRG ---
DATE OF SERVICE: 05/08/2019 SUBJECTIVE: A 48-year-old gentleman being seen for acute kidney injury, dialysis dependent. The patient is resting. Denies any complaint. OBJECTIVE: CONSTITUTIONAL: The patient is awake and alert. VITAL SIGNS: Pulse 99, breathing 16, and blood pressure 172/62. GENERAL APPEARANCE AND MENTAL STATUS: Fair. HEAD/NECK: Normocephalic. Atraumatic. EYES: EOMI. No deformity. EARS: Clear. No ulcers. NOSE: Intact. No lesions. MOUTH: Clear. No discharge. THROAT: Clear. No exudate. LUNGS: Clear. No crackles. CARDIAC: S1, S2. No rub. ABDOMEN: Benign. Bowel sounds positive. GENITALIA/RECTUM: Noguera absent. BACK/EXTREMITIES: Edema 0+. NEUROLOGICAL: Alert and motor intact. SKIN: LYMPHATICS: LABORATORY DATA: Labs reviewed. ASSESSMENT AND PLAN: 1. Stage 6 chronic kidney disease, plan dialysis. 2. Hypertension, stable. 3. Anemia, stable. 4. Acute kidney injury, plan dialysis. 5. Congestive heart failure. Prognosis is poor. Job ID: [id number]
--- NOTE | 2019-05-08 17:25 | CON ---
DATE OF CONSULTATION: 05/08/2019 HISTORY OF PRESENT ILLNESS: I am seeing Mr. 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 His problems are; 1. Chronic atrial flutter, possibly isthmus dependent in morphology. a. Spontaneous conversion back to sinus rhythm in January, now with recurrence. 2. History of preserved LV systolic function by echo without significant valvular heart disease on 02/10/2019. 3. Morbid obesity. 4. Pulmonary disease including COPD. 5. Chronic lymphedema in lower extremities. 6. Acute diastolic CHF exacerbation versus pneumonia, causing respiratory failure on admission. 7. New onset of end-stage renal disease, now on hemodialysis. ALLERGIES: NONE NOTED. MEDICATIONS: At home, include; 1. Aspirin. 2. Vitamin B12. 3. Folic acid. 4. Levofloxacin. 5. Carvedilol. 6. Furosemide. Currently, the patient also is on; 1. IV diltiazem. 2. Subcutaneous heparin. SUBJECTIVE: Mr. Morgan is admitted with respiratory failure, who has history of paroxysmal atrial flutter, now admitted with respiratory failure and he had noted to have recurrence. He was started on hemodialysis and he lost significant amount of weight, initially 481 pounds, the most recent documented is 426 pounds. He is somewhat improved in his respiratory status. He is still on high-flow oxygen, but breathing easier, still receiving antibiotic therapy. He does not pass out. He denies stroke-like symptoms. No new bleeding issues. Had chronic lower extremity edema. No fever, chills, or cough. REVIEW OF SYSTEMS: The rest of the 12-point review of system is currently unremarkable. PAST HISTORY: As above. SOCIAL HISTORY: The patient denies smoking, EtOH, or drug abuse. FAMILY HISTORY: Noncontributory. OBJECTIVE DATA: VITAL SIGNS: Blood pressure is 126/58, heart rate is 101, respirations 14, and temperature 98.4 degrees Fahrenheit. GENERAL: He is alert and oriented. He is a morbidly obese man, in no apparent distress. NECK: Supple. Jugular veins difficult to visualize. CHEST: Coarse crackles. HEART: Sounds are irregularly irregular. S1 and S2 are variable. No murmur or gallop. ABDOMEN: Benign. Bowel sounds are positive. EXTREMITIES: Lower extremities clubbing, or cyanosis. Pulses are adequate. NEUROLOGIC: The patient is nonfocal. MUSCULOSKELETAL: Without joint swelling or deformities. SKIN: Without rash. DATABASE: The EKG was reviewed, appears to show typical isthmus dependent atrial flutter, persisting throughout this hospitalization with reasonable ventricular rate control about 100 beats per minute. DISCUSSION: Discussed these condition with the patient and his mother who was also in the room at the time of my consult. This gentleman has had recurrent atrial flutter, previously self converting, but now recurrent and persisting. Again, we discussed treatment options. Antiarrhythmic medications are somewhat difficult proposition in this gentleman with end-stage renal disease. Anticoagulation also a possibility, that could be difficult again due to his end-stage renal disease. I discussed also option for radiofrequency ablation to terminate his atrial flutter. We discussed the mechanism of atrial flutter and differences atrial flutter and fibrillation. Also discussed the potential for atrial fibrillation on him, for which a left atrial ablation might be necessity. On the other hand, he may be a poor candidate for that. Morbid obesity likely contribute to his condition and weight loss will be strongly encouraged. He has CHADS-VASc score is 2 due to heart failure and type 2 diabetes. We are planning on proceeding with a LO and radiofrequency ablation of the atrial flutter. In the meantime, continue anticoagulation as per repair weaver services. Continue to diurese and hopefully keep on losing weight as well. Job ID: [id number] [facility]
[2019-05-09 05:10] LABS: Anion Gap 13 mmol/L (10-20); BUN (Urea Nitrogen) 29 mg/dL (8.9-20.6); Calc. Creatinine Clearance 78 mL/min (70-130); Calcium 9.6 mg/dL (7.8-10.44); Carbon Dioxide 29 mmol/L (22-29); Chloride 97 mmol/L (98-107); Estimated GFR-MDRD 21; Glucose 87 mg/dL (70-105); Sodium 135 mmol/L (136-145)
[2019-05-09] MEDS: Docusate Sodium 100 MG/10 ML UDCUP PO SCH ×2 (07:25→20:22)
[2019-05-09] MEDS: traMADol HCl 50 MG TAB PO PRN ×2 (07:25→20:20)
[2019-05-09] MEDS: Polyethylene Glycol 3350 17 GM Packet PO SCH (07:25)
[2019-05-09] MEDS: Heparin 5,000 UNITS/ML VIAL SC SCH ×2 (07:27→20:20)
[2019-05-09] MEDS: Aspirin Chewable 81 MG TAB PO SCH (07:27)
[2019-05-09] MEDS ORDERED: Heparin 1,000 UNITS/ML VIAL ONE (11:11)
--- NOTE | 2019-05-09 11:12 | PRG ---
DATE OF SERVICE: 05/09/2019 SUBJECTIVE: A 48-year-old gentleman, being seen for end-stage renal disease. The patient denied any nausea, vomiting, or chest pain. OBJECTIVE: GENERAL: The patient is awake and alert. VITAL SIGNS: Afebrile, pulse 118, breathing 16, blood pressure 134/83. GENERAL APPEARANCE AND MENTAL STATUS: Fair. HEAD/NECK: Normocephalic. Atraumatic. EYES: EOMI. No deformity. EARS: Clear. No ulcers. NOSE: Intact. No lesions. MOUTH: Clear. No discharge. THROAT: Clear. No exudate. LUNGS: Clear. No crackles. CARDIAC: S1, S2. No rub. ABDOMEN: Benign. Bowel sounds positive. GENITALIA/RECTUM: Noguera absent. BACK/EXTREMITIES: Edema 0+. NEUROLOGICAL: Alert and motor intact. SKIN: LYMPHATICS: LABORATORY DATA: Labs showed hemoglobin 11.6, potassium 4. ASSESSMENT AND PLAN: 1. Stage 6 chronic kidney disease, continue hemodialysis. 2. Hypertension, stable. 3. Anemia, stable. 4. Medication based on GFR, appropriate. Job ID: [id number]
--- NOTE | 2019-05-09 11:34 | PDOC.PN ---
- Subjective Encounter Start Date: 05/09/19 Encounter Start Time: 11:33 Mr. Morgan was seen today in follow-up of respiratory failure. He does not have any new complaints. He says he is breathing better. He is undergoing dialysis now. He is still requiring high flow oxygen. - Objective Resuscitation Status - Order Detail: 05/01/19 22:38 Resuscitation Status Routine Resuscitation Status: FULL: Full Resuscitation Additional comments: Revocation form signed by Linda Valencia on 05/01/19 at 1545 MAR Reviewed: Yes Vital Signs & Weight: Vital Signs (12 hours) Temp Pulse Resp Pulse Ox 05/09/19 11:17 105 H 20 93 L 05/09/19 07:34 98.0 F 93 L 05/09/19 07:25 92 L 05/09/19 07:18 103 H 17 05/09/19 06:57 98.9 F 05/09/19 04:00 96.4 F L 05/09/19 02:10 100 05/09/19 00:00 97.6 F Weight Admit Weight 488 lb 9.6 oz Weight 432 lb 12.8 oz Most Recent Monitor Data Heart Rate from ECG 129 NIBP 107/63 NIBP BP-Mean 77 Respiration from ECG 24 SpO2 94 I&O: 05/08/19 05/09/19 05/10/19 06:59 06:59 06:59 Intake Total 1258 1446 360 Output Total 0 60 0 Balance 1258 1386 360 Result Diagrams: 05/03/19 04:09 05/09/19 04:32 Phys Exam - Physical Examination HEENT: PERRLA + decreased breath sounds at the bases Cardiovascular: RRR, no significant murmur, no rub Gastrointestinal: soft, non-tender, no distention, positive bowel sounds Musculoskeletal: no edema, pulses present Dx/Plan (1) Acute on chronic respiratory failure with hypoxia and hypercapnia Code(s): J96.21 - ACUTE AND CHRONIC RESPIRATORY FAILURE WITH HYPOXIA; J96.22 - ACUTE AND CHRONIC RESPIRATORY FAILURE WITH HYPERCAPNIA Status: Acute Comment : extubated 05/06/2019 (2) Acute on chronic diastolic ACC/AHA stage C congestive heart failure Code(s): I50.33 - ACUTE ON CHRONIC DIASTOLIC (CONGESTIVE) HEART FAILURE Status : Acute (3) Morbid obesity with BMI of 50.0-59.9, adult Code(s): E66.01 - MORBID (SEVERE) OBESITY DUE TO EXCESS CALORIES; Z68.43 - BODY MASS INDEX (BMI) 50-59.9, ADULT Status: Chronic (4) Atrial flutter Code(s): I48.92 - UNSPECIFIED ATRIAL FLUTTER Status: Acute Comment: in sinus this am, paroxysmal (5) HTN (hypertension) Code(s): I10 - ESSENTIAL (PRIMARY) HYPERTENSION Status: Chronic Qualifiers: (6) End stage renal disease on dialysis Code(s): N18.6 - END STAGE RENAL DISEASE; Z99.2 - DEPENDENCE ON RENAL DIALYSIS Status: Acute - Plan * Acute on chronic respiratory failure- slowly improving * Acute on chronic diastolic heart failure- compensated. * HTN- blood pressure is stable * ESRD- continue dialysis as per Nephrology * Rigth upper extremity swelling- will check a venous ultrasound of the right upper extremity * Atrial fibrillation/atrial flutter- plan is for ablation on Saturday
--- NOTE | 2019-05-09 14:04 | PRG ---
DATE OF SERVICE: 05/09/2019 SERVICE: Pulmonary Medicine. INTERVAL HISTORY: The patient underwent dialysis yesterday and ended up having 2.5 L taken off again. He denies any current chest pain, fevers, or chills. He is breathing comfortably otherwise. There has been no interval change to his condition. PHYSICAL EXAMINATION: VITAL SIGNS: Afebrile, pulse 105, blood pressure 107/63, respirations 24, saturation 94%, currently on 47% FiO2 delivered via high-flow nasal cannula. HEENT: Normocephalic and atraumatic. Sclerae white. Conjunctivae pink. Oral mucosa is moist without lesions. LUNGS: Decent air entry. There is no crackles present. No prolonged expiratory phase or wheezing is appreciated. HEART: Normal rate and regular. ABDOMEN: Soft, nontender, and nondistended. Bowel sounds are positive. MUSCULOSKELETAL: No cyanosis or clubbing. There is no pitting in the bilateral lower extremities. If anything, there is skin tenting present. : No Noguera catheter in place. NEUROLOGICAL: Grossly nonfocal. LABORATORY DATA: Creatinine 3.25 and stable. Basic metabolic profile is otherwise unremarkable. Blood cultures x2 are negative. ASSESSMENT: 1. [id number] hypoxic and hypercapnic respiratory failure. 2. Morbid obesity. 3. Atrial flutter. 4. Obstructive sleep apnea. 5. Acute kidney injury. DISCUSSION AND PLAN: The patient has returned to euvolemia. At this point, we do not have to be too terribly aggressive with fluid removal. Pulmonary/Critical Care will continue to follow along. We will wean the high-flow nasal cannula and see if we can get him onto regular nasal cannula. He can be transitioned out of the ICU to the intermediate care unit. I will continue BiPAP at night. Job ID: [id number]
--- NOTE | 2019-05-09 17:45 | ULT ---
RIGHT UPPER EXTREMITY VENOUS DUPLEX EXAM: 05/09/19 HISTORY: Right upper arm pain and swelling for four days. Edema is noted throughout the arm and subcu tissue. Real time examination was performed including the internal jugular, subclavian, axillary, brachial, b asilic, and cephalic veins. It shows a patent deep venous system. There is normal compressibility and augmentation. There is no evidence of DVT. IMPRESSION: No evidence of DVT in the right upper extremity. POS: BLAYNE
[2019-05-09] MEDS: Acetaminophen 650 MG/20.3 ML UDCUP PO PRN (20:20)
[2019-05-10] MEDS: traMADol HCl 50 MG TAB PO PRN (06:55)
[2019-05-10] MEDS: Aspirin Chewable 81 MG TAB PO SCH (08:57)
[2019-05-10] MEDS: Docusate Sodium 100 MG/10 ML UDCUP PO SCH ×2 (08:57→21:04)
[2019-05-10] MEDS: Heparin 5,000 UNITS/ML VIAL SC SCH ×2 (08:57→21:03)
[2019-05-10] MEDS: Polyethylene Glycol 3350 17 GM Packet PO SCH (08:58)
--- NOTE | 2019-05-10 11:31 | PRG ---
DATE OF SERVICE: 05/10/2019 SERVICE: Pulmonary Medicine. INTERVAL HISTORY: The patient is doing really well from a breathing standpoint. We were able to wean him off the high-flow nasal cannula on to just a regular low-flow nasal cannula. He does not have any shortness of breath. He is working with Physical Therapy otherwise. There has been no interval change to his condition. PHYSICAL EXAMINATION: VITAL SIGNS: Afebrile, pulse 107, blood pressure 145/80, respirations 21, saturation 96% on 30% FiO2 delivered via high-flow and 88% via nasal cannula. HEENT: Normocephalic and atraumatic. Sclerae are white. Conjunctivae are pink. Oral mucosa is moist without lesions. LUNGS: Decent air entry. There is no prolonged expiratory phase or crackles appreciated. HEART: Normal rate, regular. ABDOMEN: Soft, nontender, and nondistended. Bowel sounds are positive. MUSCULOSKELETAL: No cyanosis or clubbing. No pitting in the bilateral lower extremities. NEUROLOGIC: Grossly nonfocal. ASSESSMENT: 1. [id number] hypoxic and hypercapnic respiratory failure. 2. Morbid obesity. 3. Atrial flutter. 4. Obstructive sleep apnea. 5. Acute kidney injury. DISCUSSION AND PLAN: We will continue noninvasive ventilation at night. We will keep his saturations between 84% and 88% so long as he is comfortable with a little bit of oxygen via nasal cannula. Pulmonary/Critical Care will continue to follow along while the patient remains inhouse. He is approaching readiness for being discharged from the hospital. Job ID: [id number]
--- NOTE | 2019-05-10 13:07 | PRG ---
DATE OF SERVICE: 05/10/2019 SUBJECTIVE: This is a 48-year-old gentleman, being seen for end-stage renal disease. The patient denied nausea, vomiting, or chest pain. OBJECTIVE: CONSTITUTIONAL: The patient is awake and alert. VITAL SIGN: Afebrile. Pulse 130, breathing 16, blood pressure 117/65. GENERAL APPEARANCE AND MENTAL STATUS: Fair. HEAD/NECK: Normocephalic. Atraumatic. EYES: EOMI. No deformity. EARS: Clear. No ulcers. NOSE: Intact. No lesions. MOUTH: Clear. No discharge. THROAT: Clear. No exudate. LUNGS: Clear. No crackles. CARDIAC: S1, S2. No rub. ABDOMEN: Benign. Bowel sounds positive. GENITALIA/RECTUM: Noguera absent. BACK/EXTREMITIES: Edema 0+. NEUROLOGICAL: Alert and motor intact. SKIN: LYMPHATICS: LABORATORY DATA: Labs reviewed. ASSESSMENT AND PLAN: 1. Stage 6 chronic kidney disease, continue hemodialysis. 2. Hypertension, stable. 3. Anemia, stable. 4. Medication based on GFR, appropriate. Job ID: [id number]
[2019-05-10 13:40] LABS: Hemoglobin 11.4 g/dL (14.0-18.0)
--- NOTE | 2019-05-11 08:16 | PRG ---
DATE OF SERVICE: 05/11/2019 SUBJECTIVE: He continues to be in atrial flutter. I am told he is going down for an ablation later today. OBJECTIVE: VITAL SIGNS: His heart rate is running at 155 in flutter, temperature 99.5, blood pressure 136/86, and O2 saturation high 80s to low 90s on nasal cannula. HEENT: Unremarkable. NECK: No JVD. LUNGS: Clear anteriorly. CARDIAC: S1 and S2. Regular. ABDOMEN: Morbidly obese. EXTREMITIES: Edematous throughout. LABORATORY DATA: No new labs were done today. ASSESSMENT: 1. Acute on chronic hypercapnic and hypoxic respiratory failure, requiring BiPAP at night. 2. Morbid obesity. 3. Atrial flutter. 4. Acute kidney injury requiring hemodialysis. PLAN: 1. Continue dialysis. 2. Cardiac ablation today. 3. Continue nocturnal BiPAP. 4. We will need Case Management to work on the possibility of BiPAP when he is discharged. Job ID: [id number]
--- NOTE | 2019-05-11 08:38 | PDOC.PN ---
- Subjective Encounter Start Date: 05/11/19 Encounter Start Time: 08:38 Mr. Morgan was seen today in follow-up of respiratory failure. He says he is a bit nervous today about the procedure. He denies chest pain or difficulty breathing. - Objective Resuscitation Status - Order Detail: 05/01/19 22:38 Resuscitation Status Routine Resuscitation Status: FULL: Full Resuscitation Additional comments: Revocation form signed by Linda Valencia on 05/01/19 at 1545 MAR Reviewed: Yes Vital Signs & Weight: Vital Signs (12 hours) Temp Pulse Resp Pulse Ox 05/11/19 07:45 99.5 F 05/11/19 07:37 144 H 23 H 90 L 05/11/19 04:00 98.4 F 05/11/19 02:22 115 H 05/10/19 23:43 98.1 F 05/10/19 21:46 105 H 05/10/19 21:45 106 H 16 Weight Admit Weight 488 lb 9.6 oz Weight 436 lb 3.2 oz Most Recent Monitor Data Heart Rate from ECG 153 NIBP 142/78 NIBP BP-Mean 99 Respiration from ECG 23 SpO2 90 I&O: 05/10/19 05/11/19 05/12/19 06:59 06:59 06:59 Intake Total 690 880 Output Total 0 Balance 690 880 Result Diagrams: 05/10/19 13:23 05/09/19 04:32 Phys Exam - Physical Examination HEENT: PERRLA + coarse breath sounds, and rales at the bases Cardiovascular: RRR, no significant murmur, no rub tachy- with intermittent gallop Gastrointestinal: soft, non-tender, no distention, positive bowel sounds Musculoskeletal: pulses present, edema present + chronic venous stasis changes Neurological: non-focal Dx/Plan (1) Acute on chronic respiratory failure with hypoxia and hypercapnia Code(s): J96.21 - ACUTE AND CHRONIC RESPIRATORY FAILURE WITH HYPOXIA; J96.22 - ACUTE AND CHRONIC RESPIRATORY FAILURE WITH HYPERCAPNIA Status: Acute Comment : extubated 05/06/2019 (2) Acute on chronic diastolic ACC/AHA stage C congestive heart failure Code(s): I50.33 - ACUTE ON CHRONIC DIASTOLIC (CONGESTIVE) HEART FAILURE Status : Acute (3) Morbid obesity with BMI of 50.0-59.9, adult Code(s): E66.01 - MORBID (SEVERE) OBESITY DUE TO EXCESS CALORIES; Z68.43 - BODY MASS INDEX (BMI) 50-59.9, ADULT Status: Chronic (4) Atrial flutter Code(s): I48.92 - UNSPECIFIED ATRIAL FLUTTER Status: Acute Comment: in sinus this am, paroxysmal (5) HTN (hypertension) Code(s): I10 - ESSENTIAL (PRIMARY) HYPERTENSION Status: Chronic Qualifiers: (6) End stage renal disease on dialysis Code(s): N18.6 - END STAGE RENAL DISEASE; Z99.2 - DEPENDENCE ON RENAL DIALYSIS Status: Acute - Plan * Acute on chronic respiratory failure- improved with diureses * Atrial flutter- his heart rate is elevated- will give a dose of IV Cardizem. Plan is for ablation today * ESRD- continue dialysis as per Nephrology * HTN- blood pressure is stable * .
[2019-05-11] MEDS: Aspirin Chewable 81 MG TAB PO SCH (09:15)
[2019-05-11] MEDS: Heparin 5,000 UNITS/ML VIAL SC SCH ×2 (09:15→22:05)
[2019-05-11] MEDS: Docusate Sodium 100 MG/10 ML UDCUP PO SCH ×2 (09:15→22:04)
[2019-05-11] MEDS: Polyethylene Glycol 3350 17 GM Packet PO SCH (09:16)
[2019-05-11 10:15] LABS: Anion Gap 14 mmol/L (10-20); BUN (Urea Nitrogen) 31 mg/dL (8.9-20.6); Calc. Creatinine Clearance 74 mL/min (70-130); Calcium 9.4 mg/dL (7.8-10.44); Carbon Dioxide 27 mmol/L (22-29); Chloride 97 mmol/L (98-107); Estimated GFR-MDRD 19; Glucose 84 mg/dL (70-105); Potassium 3.6 mmol/L (3.5-5.1); Sodium 134 mmol/L (136-145)
--- NOTE | 2019-05-11 10:44 | PRG ---
DATE OF SERVICE: 05/11/2019 SUBJECTIVE: Patient was seen and examined at bedside and overnight events noted. Patient denies any shortness of breath or chest pain or palpitation. No history of nausea or vomiting or diarrhea or fever or chills or cramps. OBJECTIVE: GENERAL: This is a morbidly obese male, in no apparent distress. VITAL SIGNS: Temperature 99.5. Heart rate 137. Respiratory rate 28. Blood pressure 124/63. HEENT: Atraumatic, normocephalic. Oral mucosa is moist NECK: Supple. CARDIOVASCULAR: S1, S2 heard. Rate and rhythm regular. RESPIRATORY: Clear to auscultation. GASTROINTESTINAL: Abdomen is soft. MUSCULOSKELETAL: No tenderness. 2+ edema. DERMATOLOGIC: No skin rash. NEUROLOGIC: Alert and awake and oriented X3. No focal neurologic deficits. Moving all the extremities. PSYCHIATRIC: Mood and affect normal. LABORATORY DATA: Potassium is 3.6, BUN is 31, creatinine is 3.4. ASSESSMENT AND PLAN: 1. Acute kidney injury on chronic kidney disease stage 3, dialysis dependent. Labs are stable. The patient reports increased urine output. Monitor urine output and plan is to have dialysis for ultrafiltration. 2. Hypertension, stable. 3. Anemia, monitor. 4. Edema. Much better. 5. Morbid obesity. 6. Acute hypoxic respiratory failure, status post fluid removal. 7. The patient is feeling better. We will continue to monitor closely. Plan is to have daily dialysis for ultrafiltration. Job ID: [id number]
[2019-05-11] MEDS ORDERED: Diltiazem HCl 125 MG, Admixture Fee 1 EACH in Sodium Chloride 0.9% 100 ML IVPB SCH (11:00)
[2019-05-11] MEDS ORDERED: Heparin 10,000 UNITS/ 10 ML VIAL ONE (12:00)
[2019-05-11] MEDS ORDERED: Lidocaine 1% (PF) 30 ML VIAL ONE (14:34)
[2019-05-11] MEDS ORDERED: Ketamine 50 MG/ML (10ML VIAL) ONE (14:46)
[2019-05-11] MEDS ORDERED: Vecuronium 10 MG VIAL ONE (14:57)
[2019-05-11] MEDS ORDERED: PROPOFOL 200 MG/20 ML VIAL ONE (14:57)
[2019-05-11] MEDS ORDERED: Lidocaine 1% PF 5 ML VIAL ONE (14:57)
[2019-05-11] MEDS ORDERED: Rocuronium Bromide 10 MG/ML (10ML VIAL) ONE (14:57)
[2019-05-11] MEDS ORDERED: PHENYLEPHRINE-NS 100 MCG/ML 10 ML SYRINGE ONE (14:57)
[2019-05-11] MEDS ORDERED: Phenylephrine HCL 10 MG/ML VIAL ONE (15:50)
[2019-05-11] MEDS ORDERED: SUGAMMADEX SODIUM 200 MG/2 ML VIAL ONE (16:34)
[2019-05-11] MEDS ORDERED: DOPamine 400 MG/D5W 250 ML 250 ML ONE (16:59)
--- NOTE | 2019-05-11 18:12 | PRG ---
DATE OF SERVICE: 05/11/2019 SUBJECTIVE: This is a morbidly obese 48-year-old gentleman whom I was called to see after he was left intubated on the vent following an EP procedure. He is in the ICU on the vent, intubated. Sedated, unresponsive. OBJECTIVE: VITAL SIGNS: Pulse 119, sats are 91% to 92%, blood pressure 120/67, and respiratory rate 18. CHEST: Decreased breath sounds. Minimal wheezing. CARDIAC: Normal S1, S2. No masses. LABORATORY DATA: Creatinine 3.45. IMPRESSION: 1. Status post electrophysiology procedure for a recurrent supraventricular tachycardia. 2. Acute on chronic respiratory failure, morbid obesity, probably sleep apnea renal failure on dialysis. Leave the patient intubated overnight. In the meantime, continue neb treatments, supportive care, PT. Primary care, Pulmonology is following in the morning. Job ID: [id number]
[2019-05-11 18:47] LABS: Actual Bicarbonate (HCO3a) 26.5 mEq/L (22-28); Base Excess (BEa) 1.1 mEq/L (-2.0 to +3.0); CO2 Tension 45.4 mmHg (35.0-45.0); Calcium, Ionized 1.19 mmol/L (1.12-1.30); Carboxyhemoglobin (COHb) 1.5 gm% (0.0-3.0); Hemoglobin (Hb) 12.6 g/dL (14.0-18.0); Potassium - ABG Lab 3.82 mmol/L (3.70-5.30); pH, Arterial 7.38 (7.35-7.45)
[2019-05-11 18:49] LABS: O2 Tension (PaO2) 55.2 mmHg (80.0-100.0)
[2019-05-11 18:50] LABS: Puncture Site RRA
[2019-05-11] MEDS ORDERED: Ventilator Sedation Protocol 1 EACH FS ONE (21:16)
[2019-05-11] MEDS ORDERED: Lorazepam 2 MG/ML VIAL SLOW IVP PRN (21:22)
[2019-05-11] MEDS ORDERED: DISCONTINUE PREVIOUS NARCOTIC PAIN MEDICATIONS AND BENZODIAZEPINES FS SCH (21:22)
[2019-05-11] MEDS ORDERED: Propofol BOLUS 1,000 MG/100 ML VIAL IV PRN (21:22)
[2019-05-11] MEDS ORDERED: Morphine 2 MG/ML SYRINGE SLOW IVP PRN (21:22)
[2019-05-11] MEDS ORDERED: Fentanyl BOLUS 250 ML IVPB PRN (21:22)
[2019-05-11] MEDS ORDERED: Propofol 1,000 MG/100 ML VIAL IV PRN (21:22)
[2019-05-11] MEDS ORDERED: fentaNYL Citrate/PF 2,000 MCG in Sodium Chloride 0.9% 60 ML IV SCH (21:22)
[2019-05-11] MEDS ORDERED: Heparin 10,000 UNITS/ 10 ML VIAL CATH SCH (22:45)
[2019-05-12 07:56] LABS: CO2 Tension 37.1 mmHg (35.0-45.0); pH, Arterial 7.48 (7.35-7.45)
[2019-05-12 07:57] LABS: Actual Bicarbonate (HCO3a) 26.9 mEq/L (22-28); Base Excess (BEa) 3.4 mEq/L (-2.0 to +3.0); Calcium, Ionized 1.16 mmol/L (1.12-1.30); Carboxyhemoglobin (COHb) 2.1 gm% (0.0-3.0); Hemoglobin (Hb) 12.2 g/dL (14.0-18.0); O2 Tension (PaO2) 52.2 mmHg (80.0-100.0); Potassium - ABG Lab 3.91 mmol/L (3.70-5.30)
[2019-05-12 07:58] LABS: ALV-art Gradient 122.455 (0-20); Puncture Site RR
[2019-05-12] MEDS: Polyethylene Glycol 3350 17 GM Packet PO SCH (08:22)
[2019-05-12] MEDS: Aspirin Chewable 81 MG TAB PO SCH (08:22)
[2019-05-12] MEDS: Heparin 5,000 UNITS/ML VIAL SC SCH ×2 (08:22→21:17)
--- NOTE | 2019-05-12 08:23 | PRG ---
DATE OF SERVICE: 05/12/2019 TIME SPENT: 35 minutes critical time. SUBJECTIVE: The patient was left intubated after EP study yesterday. He is awake, alert, and wants to have his ET tube removed this morning. OBJECTIVE: VITAL SIGNS: Temperature is 98.8, pulse 114, blood pressure 135/73, O2 saturation 91%. Intake for 24 hours 880, output 2000 by dialysis. HEENT: Unremarkable. NECK: No JVD. CHEST: Clear to auscultation anteriorly. CARDIAC: S1 and S2. Slightly tachycardic, but regular and not in atrial flutter. ABDOMEN: Soft, obese, nontender, and nondistended. EXTREMITIES: No edema. LABORATORY DATA: No new labs were done today other than a blood gas, which looked appropriate. ASSESSMENT: 1. Status post ablation for atrial flutter. 2. Acute renal failure with no evidence of renal recovery to this point. 3. Morbid obesity. 4. Obstructive sleep apnea/obesity hypoventilation syndrome. 5. Acute respiratory failure requiring mechanical ventilation. PLAN: The patient will be extubated to high flow and wean from there. We will go ahead and have his diet resumed. Hopefully, he can go back to [facility] by tomorrow. Job ID: [id number]
[2019-05-12] MEDS: Acetaminophen 650 MG/20.3 ML UDCUP PO PRN (08:32)
[2019-05-12] MEDS: Docusate Sodium 100 MG/10 ML UDCUP PO SCH ×2 (08:37→21:18)
--- NOTE | 2019-05-12 08:49 | PRG ---
DATE OF SERVICE: 05/12/2019 SUBJECTIVE: Patient was seen and examined at bedside and overnight events noted. Patient denies any shortness of breath or chest pain or palpitation. No history of nausea or vomiting or diarrhea or fever or chills or cramps. OBJECTIVE: GENERAL: This is a morbidly obese male, in no apparent distress. VITAL SIGNS: Temperature 98.8. Heart rate 115. Respiratory rate 25. Blood pressure 119/63. HEENT: Atraumatic, normocephalic. Oral mucosa is moist. NECK: Supple. CARDIOVASCULAR: S1, S2 heard. Rate and rhythm regular. RESPIRATORY: Clear to auscultation. GASTROINTESTINAL: Abdomen is soft. MUSCULOSKELETAL: No tenderness. No edema. DERMATOLOGIC: No skin rash. NEUROLOGIC: Alert and awake and oriented x3. No focal neurologic deficits. Moving all the extremities. PSYCHIATRIC: Mood and affect normal. LABORATORY DATA: Not done today. ASSESSMENT AND PLAN: 1. Acute kidney injury on chronic kidney disease, stage 3, dialysis dependent. No dialysis today. The patient is reporting increased urine output. We will have strict I's and O's. 2. Hypertension, stable. 3. Anemia. 4. Edema, remove fluid with dialysis. 5. Morbid obesity. Plan to limit fluid intake and we will remove fluid dialysis as tolerated. No dialysis today. Repeat labs in the morning. Job ID: [id number]
--- NOTE | 2019-05-12 09:23 | OP ---
DATE OF PROCEDURE: 05/11/2019 PROCEDURE PERFORMED: Electrophysiology study and radiofrequency ablation. REASON FOR PROCEDURE: Mr. Morgan is a 48-year-old man with prior history of morbid obesity, recurrent atrial flutter is noted. He underwent a LO prior to the procedure, demonstrating no intracardiac clots. He is here for ablation. DESCRIPTION OF PROCEDURE: The patient received general anesthesia by Anesthesia specialist. The femoral venous areas were prepped and draped and anesthetized using subcutaneous lidocaine and the left femoral vein was cannulated x2 under ultrasound guidance with some difficulty due to morbid obesity. Through the femoral venous access, two 8-Wolof short sheaths were introduced, and through them, a ThermoCool SFST catheter was introduced into the right atrium as well as a decapolar catheter was advanced through the CS position. Also, the His bundle and right ventricular positions were also located. Pacing, mapping, and recording were performed in each location. Of note, the coronary sinus system had direct connection to the left inferior vena cava, suggestive of persistent left IVC, noted during CARTO study. Following numerical findings were noted: Baseline rhythm with atrial flutter, appears to be typical, isthmus dependent, activation on the CS. Overdrive pacing attempted at the cavotricuspid isthmus area and the post pacing interval matched the tachycardia cycle length about 230 milliseconds. The CS positions also pace mapped and there appears to be a shorter post-pacing intervals by the proximal CS and the lateral CS. At this point, cavotricuspid isthmus ablation was performed. During the cavotricuspid isthmus ablation, which was performed with 40 tran, total of 8 lesions at 6 minutes and 56 seconds, were delivered. During this ablation, the isthmus dependent flutter broken, sinus rhythm ensued. At the proximal CS pacing, further mapping was performed and ablations delivered to achieve a transisthmus block over 150 milliseconds. Transisthmus block was demonstrated by longest postablation isthmus time at 150 milliseconds adjacent to the ablation line. At this point, basic EP study was performed. RV pacing was delivered with VA conduction was noted down to 280 milliseconds. Concentric VA conduction was seen. AV Wenckebach cycle length was 370 milliseconds. AV anastasiia ERP was 600/280 milliseconds. Sinus node recovery time was 1053 with corrected sinus node recovery time was 300 milliseconds. No dual AV anastasiia physiology was noted. Burst atrial pacing did not reinduce the arrhythmia. Dopamine was administered and then the pacing maneuvers were repeated. Also, the cavotricuspid isthmus block was re-evaluated and the correction was re-ablated. No atrial fibrillation was inducible during this study. At the end of the case, the cardiac silhouette did not change. Catheters removed and IV sheaths were also closed by Vascade closure. CONCLUSION: 1. Typical isthmus dependent atrial flutter at baseline. 2. Successful termination of the flutter with cavotricuspid isthmus ablation, rendering it noninducible. Cavotricuspid isthmus block is achieved. 3. Normal sinus and AV anastasiia function seen. 4. No evidence of accessory pathway or the slow pathways. No other supraventricular tachycardia or atrial flutter or fibrillation inducible. PLAN: Short-term anticoagulation with warfarin or heparin and routine followup. Job ID: [id number]
[2019-05-12 11:26] LABS: INR-International Normal Ratio 1.2; Prothrombin Time 15.1 SEC (12.0-14.7)
--- NOTE | 2019-05-12 12:47 | PRG ---
DATE OF SERVICE: 05/12/2019 SUBJECTIVE: Mr. Morgan is doing better after his ablation procedure yesterday. He was extubated. He is breathing more easy. OBJECTIVE: VITAL SIGNS: Blood pressure is 106/45, heart rate is 116, and respirations 14. He is afebrile. GENERAL: He is alert and oriented, morbidly obese man, in no apparent distress, lying in the bed on high-flow oxygen. O2 sats are at 90% to 93%. NECK: Supple. Jugular veins not visible due to obesity. CHEST: Coarse. No crackles. HEART: Sounds are regular to rate and rhythm. No murmur or gallop. ABDOMEN: Benign. Bowel sounds positive. EXTREMITIES: Lower extremities with 4+ edema bilaterally. The left femoral vein catheter insertion site appears to be healing well. DATA: Telemetry strips reviewed, revealing sinus rhythm with PACs. No atrial flutter or fibrillation seen. LABORATORY DATA: Hemoglobin is 9.4 on the . INR is 1.2. ASSESSMENT AND PLAN: Mr. Morgan is a 48-year-old man with history of recurrent atrial flutter, right ventricular enlargement, and pulmonary hypertension, likely related to morbid obesity and pulmonary issues, who underwent an atrial flutter ablation yesterday by me. He also had a LO prior to that, demonstrating normal left ventricular systolic function and only mild left atrial enlargement. There are no clots on LO. At this point, I find him stable post ablation. Continue routine management, diastolic heart failure treatment as per Dr. Cordero. We also planned to continue warfarin. He received 10 mg of Cardizem today. He is also on subcutaneous heparin, which is likely sufficient for now due to potential lack of clots during the ablation. Routine followup will be requested in the office in about 6 weeks, but for now, we will follow with you. Job ID: [id number]
--- NOTE | 2019-05-12 13:11 | ECHO ---
DATE OF SERVICE: 05/11/19 REFERRING PHYSICIAN: Dr. Cordero REASON FOR PROCEDURE: The patient is a 48-year-old male with prior history of atrial flutter presenting with recurrence and heart failure. Also has morbid obesity. He had renal insufficiency with end-stage renal disease. He is undergoing dialysis. He is here for potential LO to rule out endocardiac clots to planned ablatio n procedure. PROCEDURE: The patient received Propofol by Anesthesia specialist. After adequate level of sedation achieved, a standard transesophageal echocardiogram probe was passed into the esophagus without michelle r difficulty. Patient tolerated the procedure well, no complications noted. RESULTS: Left atrium is well visualized. Atrial appendage contains no clots. The left atrial appendage velocit ies up to 60 cm per second. Four out of four pulmonary veins were well seen. The mitral valve has tr joe regurgitation. Tricuspid valve has trace regurgitation. The aortic valve is nonregurgitant. Thre e leaflets visualized. The pulmonary valve appears to be normal without major regurgitation or stenos is. No valvular stenosis identified. Interatrial septum is free of defect. No anteroseptal defect see n either. Left ventricular systolic function is preserved. Mild LVH is noted. Right sided chambers ar e dilated. Mild right sided hypertrophy is noted. Pericardial space without effusion. The visualize d portion of ascending and descending aorta without aneurysm, dissection or atheroma. CONCLUSION: 1. No intracardiac clots. 2. Preserved LV systolic function. 3. Mild left atrial enlargement measuring up to 4.5 cm. 4. No significant valvular heart disease. 5. Dilated right sided chambers are noted. PLAN: Proceed with planned ablation procedure.
--- NOTE | 2019-05-12 15:25 | PDOC.HOSPP ---
- Subjective Subjective: Mr. Morgan was seen today in follow-up of acute respiratory failure. He does not have any complaints. He is s/p ablation. He has been extubated, and is back on high flow oxygen. - Objective Vital Signs & Weight: Vital Signs (12 hours) Temp Pulse Pulse Pulse Resp BP BP 05/12/19 14:10 05/12/19 14:05 114 H 21 H 05/12/19 11:31 113 H 113 H 127/67 119/67 05/12/19 10:25 113 H 14 05/12/19 08:00 99.2 F 05/12/19 07:46 05/12/19 07:35 05/12/19 06:00 24 H 05/12/19 04:00 98.8 F 22 H Pulse Ox Pulse Ox Pulse Ox 05/12/19 14:10 92 L 05/12/19 14:05 92 L 05/12/19 11:31 90 L 92 L 05/12/19 10:25 91 L 05/12/19 08:00 92 L 05/12/19 07:46 91 L 05/12/19 07:35 91 L 05/12/19 06:00 05/12/19 04:00 Weight Admit Weight 488 lb 9.6 oz Weight 425 lb 14.929 oz Most Recent Monitor Data Heart Rate from ECG 113 NIBP 127/67 NIBP BP-Mean 87 Respiration from ECG 29 SpO2 90 I&O: 05/11/19 05/12/19 05/13/19 06:59 06:59 06:59 Intake Total 880 200 480 Output Total 0 200 Balance 880 200 280 Result Diagrams: 05/10/19 13:23 05/11/19 09:41 ROS - Review of Systems All systems: All other ROS were reviewed and found negative. - Medication Medications: Active Medications Generic Name Dose Route Start Last Admin Trade Name Freq PRN Reason Stop Dose Admin Acetaminophen 650 mg 05/03/19 13:26 05/12/19 08:32 Tylenol Elixir PO 650 mg Q4H PRN Administration Headache/Fever or Pain 1-3 Albuterol/Ipratropium 3 ml 04/25/19 02:30 05/12/19 14:05 Duoneb NEB 3 ml [id number] RAIN Administration Artificial Tears 0 drop 05/05/19 05:40 05/05/19 05:52 Liquitears 15ml Bottle EA EYE 1 drop PRN PRN Administration Dry Eyes Docusate Sodium 100 mg 05/07/19 21:00 05/12/19 08:37 Colace Liquid PO Not Given BID RAIN Pantoprazole Sodium 40 mg 05/08/19 09:00 05/12/19 08:22 Protonix PO 40 mg DAILY RAIN Administration Polyethylene Glycol 17 gm 05/08/19 09:00 05/12/19 08:22 Miralax PO Not Given DAILY RAIN Sodium Bicarbonate 650 mg 04/29/19 03:10 05/06/19 22:55 Bicarbonate, Sodium PER TUBE 650 mg .PER PROTOCOL PRN Administration ENTERAL TUBE OCCLUSION Sodium Chloride 10 ml 04/28/19 21:00 05/12/19 08:25 Flush - Normal Saline IVF 10 ml Q12HR RAIN Administration Sodium Chloride 10 ml 04/28/19 09:44 05/07/19 09:30 Flush - Normal Saline IVF 10 ml PRN PRN Administration Saline Flush - Exam Eye: PERRL, anicteric sclera Heart: RRR, no murmur, no gallops Respiratory: CTAB, no wheezes, no rales, no ronchi, normal chest expansion Gastrointestinal: soft, non-tender, non-distended, normal bowel sounds Extremities: no cyanosis, no clubbing, no edema Hosp A/P (1) Acute on chronic respiratory failure with hypoxia and hypercapnia Code(s): J96.21 - ACUTE AND CHRONIC RESPIRATORY FAILURE WITH HYPOXIA; J96.22 - ACUTE AND CHRONIC RESPIRATORY FAILURE WITH HYPERCAPNIA Status: Acute (2) Acute on chronic diastolic ACC/AHA stage C congestive heart failure Code(s): I50.33 - ACUTE ON CHRONIC DIASTOLIC (CONGESTIVE) HEART FAILURE Status : Acute (3) Morbid obesity with BMI of 50.0-59.9, adult Code(s): E66.01 - MORBID (SEVERE) OBESITY DUE TO EXCESS CALORIES; Z68.43 - BODY MASS INDEX (BMI) 50-59.9, ADULT Status: Chronic (4) Atrial flutter Code(s): I48.92 - UNSPECIFIED ATRIAL FLUTTER Status: Acute (5) HTN (hypertension) Code(s): I10 - ESSENTIAL (PRIMARY) HYPERTENSION Status: Chronic Qualifiers: (6) End stage renal disease on dialysis Code(s): N18.6 - END STAGE RENAL DISEASE; Z99.2 - DEPENDENCE ON RENAL DIALYSIS Status: Acute - Plan * Acute on chronic diastolic heart failure- improved * Atrial flutter- he is s/p ablation- he has been started on warfarin for CVA prophylaxis * ESRD- continue dialysis * HTN- blood pressure is stable
[2019-05-12] MEDS ORDERED: Warfarin Sodium 10 MG TAB PO SCH (17:00)
[2019-05-12] MEDS: Warfarin Sodium 10 MG TAB PO SCH (18:06)
[2019-05-13 03:41] LABS: INR-International Normal Ratio 1.2; Prothrombin Time 15.4 SEC (12.0-14.7)
[2019-05-13 03:50] LABS: #Eosinphils 0.1 thou/uL (0.0-0.7); #Lymphocytes 1.2 thou/uL (1.20-3.40); #Monocytes 0.4 thou/uL (0.11-0.59); #Neutrophils 2.8 thou/uL (1.40-6.50); %Basophils 0.7 % (0.0-1.0); %Lymphocytes 26.9 % (21.0-51.0); %Monocytes 8.8 % (0.0-10.0); %Neutrophils 61.6 % (42.0-75.0); ALT (SGPT) Less than 7 U/L (8-55); AST (SGOT) 16 U/L (5-34); Alkaline Phosphatase 85 U/L (40-150); Anion Gap 11 mmol/L (10-20); BUN (Urea Nitrogen) 29 mg/dL (8.9-20.6); Bilirubin, Total 0.9 mg/dL (0.2-1.2); Calc. Creatinine Clearance 97 mL/min (70-130); Calcium 9.5 mg/dL (7.8-10.44); Carbon Dioxide 30 mmol/L (22-29); Chloride 100 mmol/L (98-107); Estimated GFR-MDRD 27; Globulin 3.5 g/dL (2.4-3.5); Glucose 96 mg/dL (70-105); Mean Corpuscular HGB CONC 30.8 g/dL (32.0-36.0); Mean Corpuscular Hemoglobin 31.1 pg (27.0-31.0); Mean Platelet Volume 7.6 fL (7.4-10.4); Platelet Count 96 thou/uL (130-400); Platelet Morphology Comment Appears Decreased; Potassium 3.8 mmol/L (3.5-5.1); Protein, Total 6.5 g/dL (6.0-8.3); RBC Distribution Width 14.9 % (11.5-14.5); Red Blood Cell (RBC) Count 3.52 mill/uL (4.70-6.10); Sodium 137 mmol/L (136-145); White Blood Cell (WBC) Count 4.6 thou/uL (4.8-10.8)
--- NOTE | 2019-05-13 06:36 | PDOC.PULCC ---
CCU Progress Note: Subj/Obj - Subjective Date: 05/13/19 Time: 06:34 Subjective: Slept with Bipap last night. Now weaned to nasal cannula - Objective Allergies/Adverse Reactions: Allergies Allergy/AdvReac Type Severity Reaction Status Date / Time No Known Drug Allergies Allergy Verified 03/22/19 09:37 Medications: Current Medications Acetaminophen (Tylenol) 650 mg ND Q4H PRN PRN Reason: Headache/Fever/Mild Pain (1-3) Acetaminophen (Tylenol Elixir) 650 mg PO Q4H PRN PRN Reason: Headache/Fever or Pain 1-3 Last Admin: 05/12/19 08:32 Dose: 650 mg Al Hydroxide/Mg Hydroxide (Maalox) 30 ml PO Q4H PRN PRN Reason: Heartburn or Indigestion Albuterol/Ipratropium (Duoneb) 3 ml NEB Q4H PRN PRN Reason: SOB &/or Wheezing Albuterol/Ipratropium (Duoneb) 3 ml NEB [id number] [facility] Last Admin: 05/13/19 06:21 Dose: 3 ml Lipase/Protease/Amylase ([place] [id number]) 1 cap FS .PER PROTOCOL PRN PRN Reason: TUBE OCCLUSION PROTOCOL Artificial Tears (Liquitears 15ml Bottle) 0 drop EA EYE PRN PRN PRN Reason: Dry Eyes Last Admin: 05/05/19 05:52 Dose: 1 drop Bisacodyl (Dulcolax) 10 mg ND Q8H PRN PRN Reason: Constipation Docusate Sodium (Colace Liquid) 100 mg PO BID [facility] Last Admin: 05/12/19 21:18 Dose: Not Given Heparin Sodium (Porcine) (Heparin 1,000 Units/Ml (10 Ml)) 0 units CATH .ASDIR [facility] Heparin Sodium (Porcine) (Heparin) 5,000 units SC BID [facility] Last Admin: 05/12/19 21:17 Dose: 5,000 units Ondansetron HCl (Zofran Odt) 4 mg PO Q6H PRN PRN Reason: Nausea/Vomiting Ondansetron HCl (Zofran) 8 mg SLOW IVP Q6H PRN PRN Reason: Nausea/Vomiting Pantoprazole Sodium (Protonix) 40 mg PO DAILY [facility] Last Admin: 05/12/19 08:22 Dose: 40 mg Polyethylene Glycol (Miralax) 17 gm PO DAILY [facility] Last Admin: 05/12/19 08:22 Dose: Not Given Sodium Bicarbonate (Bicarbonate, Sodium) 650 mg PER TUBE .PER PROTOCOL PRN PRN Reason: ENTERAL TUBE OCCLUSION Last Admin: 05/06/19 22:55 Dose: 650 mg Sodium Chloride (Flush - Normal Saline) 10 ml IVF Q12HR [facility] Last Admin: 05/12/19 21:18 Dose: 10 ml Sodium Chloride (Flush - Normal Saline) 10 ml IVF PRN PRN PRN Reason: Saline Flush Last Admin: 05/07/19 09:30 Dose: 10 ml Warfarin Sodium (Coumadin) 10 mg PO 1700 [facility] Last Admin: 05/12/19 18:06 Dose: 10 mg MAR Reviewed: Yes Vital Signs and I&O: Vital Signs Temp 98.6 F 05/13/19 04:00 Pulse 104 H 05/13/19 06:21 Resp 26 H 05/13/19 06:21 BP 127/67 05/12/19 11:31 Pulse Ox 90 L 05/13/19 06:32 Intake & Output 05/12/19 05/12/19 05/13/19 06:59 18:59 06:59 Intake Total 1120 Output Total 0 350 450 Balance 0 770 -450 Weight 425 lb 14.929 oz 424 lb 6.4 oz Intake: Oral 1120 Output: Urine 0 350 450 Other: *Amount Reported-OUT Dialysis 2,000 Voiding Method Incontinent Urinal # Bowel Movements 1 Lines (incl Aterial, CVC, PICC+Insertion date): has a tunneled Right IJ dialysis catheter and a Left IJ central line CCU Progress Note: Exam - Physical Exam Constitutional: NAD Deviation from normal: morbidly obese HEENT: PERRLA Neck: no nodes, no JVD Cardiovascular: RRR Deviation from normal: slightly tachy Respiratory: clear to auscultation anteriorly Gastrointestinal: soft, non-tender Musculoskeletal: edema present Psychiatric: normal affect, A&O x 3 Skin: no rash CCU Progress Note: Data - Labs Result Diagrams: 05/13/19 03:25 05/13/19 03:25 Lab results: Laboratory Results 05/11/19 05/11/19 05/12/19 09:41 18:30 07:20 WBC RBC Hgb Hct MCV MCH MCHC RDW Plt Count MPV Neutrophils % Lymphocytes % Monocytes % Eosinophils % Basophils % Neutrophils # Lymphocytes # Monocytes # Eosinophils # Basophils # Plt Morphology Comment PT INR Specimen Type ART ARTERIAL Puncture Site RRA RR Bicarbonate Actual 26.5 26.9 ABG pH 7.38 7.48 H ABG pCO2 45.4 H 37.1 ABG pO2 55.2 L* 52.2 L* ABG O2 Sat Calc/Fiona 87.9 L 88.8 L ABG O2 Content 15.3 L 14.9 L ABG Base Excess 1.1 3.4 H ABG Hematocrit 37.0 L 36.0 L ABG Hemoglobin 12.6 L 12.2 L ABG Oxyhemoglobin 86.3 L 86.7 L ABG Carboxyhemoglobin 1.5 2.1 ABG Methemoglobin 0.30 0.30 ABG Deoxyhemoglobin 11.9 H Zach Test POSITIVE POSITIVE A-a O2 Gradient 137.600 H 122.455 H Ionized Calcium 1.19 1.16 Mode of Support SIMV PSV % Minute Volume 10.7 Mechanical Rate 12 Spontaneous Rate 21 Inspired O2 35 31 Tidal Volume 550 Spontaneous Tidal Vol 501 Pressure Support 10 15 PEEP or CPAP 8.0 8.0 Sodium 134 L 136 135 Potassium 3.6 3.82 3.91 Chloride 97 L 99 99 Carbon Dioxide 27 Anion Gap 14 BUN 31 H Creatinine 3.45 H Estimated GFR (MDRD) 19 Glucose 84 Calcium 9.4 Total Bilirubin AST ALT Alkaline Phosphatase Serum Total Protein Albumin Globulin Albumin/Globulin Ratio 05/12/19 05/13/19 05/13/19 11:10 03:25 03:25 WBC RBC Hgb Hct MCV MCH MCHC RDW Plt Count MPV Neutrophils % Lymphocytes % Monocytes % Eosinophils % Basophils % Neutrophils # Lymphocytes # Monocytes # Eosinophils # Basophils # Plt Morphology Comment PT 15.1 H 15.4 H INR 1.2 1.2 Specimen Type Puncture Site Bicarbonate Actual ABG pH ABG pCO2 ABG pO2 ABG O2 Sat Calc/Fiona ABG O2 Content ABG Base Excess ABG Hematocrit ABG Hemoglobin ABG Oxyhemoglobin ABG Carboxyhemoglobin ABG Methemoglobin ABG Deoxyhemoglobin Zach Test A-a O2 Gradient Ionized Calcium Mode of Support % Minute Volume Mechanical Rate Spontaneous Rate Inspired O2 Tidal Volume Spontaneous Tidal Vol Pressure Support PEEP or CPAP Sodium 137 Potassium 3.8 Chloride 100 Carbon Dioxide 30 H Anion Gap 11 BUN 29 H Creatinine 2.57 H Estimated GFR (MDRD) 27 Glucose 96 Calcium 9.5 Total Bilirubin 0.9 AST 16 ALT Less than 7 L Alkaline Phosphatase 85 Serum Total Protein 6.5 Albumin 3.0 L Globulin 3.5 Albumin/Globulin Ratio 0.9 L 05/13/19 03:25 WBC 4.6 L RBC 3.52 L Hgb 11.0 L Hct 35.6 L MCV 101.0 H MCH 31.1 H MCHC 30.8 L RDW 14.9 H Plt Count 96 L MPV 7.6 Neutrophils % 61.6 Lymphocytes % 26.9 Monocytes % 8.8 Eosinophils % 2.0 Basophils % 0.7 Neutrophils # 2.8 Lymphocytes # 1.2 Monocytes # 0.4 Eosinophils # 0.1 Basophils # 0.0 Plt Morphology Comment Appears Decreased L PT INR Specimen Type Puncture Site Bicarbonate Actual ABG pH ABG pCO2 ABG pO2 ABG O2 Sat Calc/Fiona ABG O2 Content ABG Base Excess ABG Hematocrit ABG Hemoglobin ABG Oxyhemoglobin ABG Carboxyhemoglobin ABG Methemoglobin ABG Deoxyhemoglobin Zach Test A-a O2 Gradient Ionized Calcium Mode of Support % Minute Volume Mechanical Rate Spontaneous Rate Inspired O2 Tidal Volume Spontaneous Tidal Vol Pressure Support PEEP or CPAP Sodium Potassium Chloride Carbon Dioxide Anion Gap BUN Creatinine Estimated GFR (MDRD) Glucose Calcium Total Bilirubin AST ALT Alkaline Phosphatase Serum Total Protein Albumin Globulin Albumin/Globulin Ratio - ABG Interpretation ABG Results: ABG pH 7.48 (7.35-7.45) H 05/12/19 07:20 ABG pCO2 37.1 mmHg (35.0-45.0) 05/12/19 07:20 ABG O2 Sat Calc/Fiona 88.8 % (94.0-98.0) L 05/12/19 07:20 ABG Base Excess 3.4 mEq/L (-2.0 to +3.0) H 05/12/19 07:20 CCU Progress Note: A/P - Problems (1) Atrial flutter Current Visit: Yes Status: Acute Code(s): I48.92 - UNSPECIFIED ATRIAL FLUTTER Assessment and Plan: post ablation, doing well (2) End stage renal disease on dialysis Current Visit: Yes Status: Acute Code(s): N18.6 - END STAGE RENAL DISEASE; Z99.2 - DEPENDENCE ON RENAL DIALYSIS Assessment and Plan: on MWF hemodialysis (3) Volume overload Current Visit: Yes Status: Acute Code(s): E87.70 - FLUID OVERLOAD, UNSPECIFIED (4) Acute on chronic respiratory failure with hypoxia and hypercapnia Current Visit: No Status: Acute Code(s): J96.21 - ACUTE AND CHRONIC RESPIRATORY FAILURE WITH HYPOXIA; J96.22 - ACUTE AND CHRONIC RESPIRATORY FAILURE WITH HYPERCAPNIA Assessment and Plan: BIPAP at night, nasal cannula day (5) Pickwickian syndrome Current Visit: No Status: Chronic Code(s): E66.2 - MORBID (SEVERE) OBESITY WITH ALVEOLAR HYPOVENTILATION - Time Spent with Patient Time (minutes): 30 (cc time) - Plan Plan: Move to IMCU and focus on PT/OT. Needs outpt dialysis placement
[2019-05-13] MEDS: Heparin 5,000 UNITS/ML VIAL SC SCH ×2 (08:35→21:45)
[2019-05-13] MEDS: Polyethylene Glycol 3350 17 GM Packet PO SCH (08:35)
[2019-05-13] MEDS: Docusate Sodium 100 MG/10 ML UDCUP PO SCH ×2 (08:35→21:43)
--- NOTE | 2019-05-13 12:00 | PRG ---
DATE OF SERVICE: 05/13/2019 SUBJECTIVE: Patient was seen and examined at bedside and overnight events noted. Patient denies any shortness of breath or chest pain or palpitation. No history of nausea or vomiting or diarrhea or fever or chills or cramps. OBJECTIVE: GENERAL: This is an obese male, in no acute distress. VITAL SIGNS: Temperature 98.6. Heart rate 113. Respiratory rate 34. Blood pressure 150/92. HEENT: Atraumatic, normocephalic. Oral mucosa is moist NECK: Supple. CARDIOVASCULAR: S1, S2 heard. Rate and rhythm regular. RESPIRATORY: Clear to auscultation. GASTROINTESTINAL: Abdomen is soft. MUSCULOSKELETAL: 2+ edema. DERMATOLOGIC: No skin rash. NEUROLOGIC: Alert and awake and oriented X3. No focal neurologic deficits. Moving all the extremities. PSYCHIATRIC: Mood and affect normal. LABORATORY DATA: Potassium 3.8, BUN is 29, and creatinine is 2.5. ASSESSMENT AND PLAN: 1. Acute kidney injury on chronic kidney disease, stage 3, dialysis dependent. Plan to have dialysis today for fluid removal. 2. Seems like his urine output is improving. We will monitor I's and O's. 3. Hypertension, stable. 4. Anemia. 5. Edema, remove fluid. 6. Morbid obesity. 7. Acute hypoxic respiratory failure. Plan is to have dialysis today. Monitor urine output closely. Monitor labs. Job ID: [id number]
--- NOTE | 2019-05-13 12:00 | PDOC.HOSPP ---
- Subjective Subjective: Patient seen and examined. No new complaints. No overnight events - Objective Vital Signs & Weight: Vital Signs (12 hours) Temp Pulse Resp Pulse Ox 05/13/19 10:12 91 L 05/13/19 10:11 110 H 20 05/13/19 08:46 93 L 05/13/19 07:01 89 L 05/13/19 06:32 90 L 05/13/19 06:22 89 L 05/13/19 06:21 104 H 26 H 05/13/19 04:00 98.6 F 90 L 05/13/19 02:14 101 H 05/13/19 00:00 98.7 F Weight Admit Weight 488 lb 9.6 oz Weight 424 lb 6.4 oz Most Recent Monitor Data Heart Rate from ECG 113 NIBP 150/92 NIBP BP-Mean 111 Respiration from ECG 34 SpO2 92 I&O: 05/12/19 05/13/19 05/14/19 06:59 06:59 06:59 Intake Total 200 1120 480 Output Total 0 800 Balance 200 320 480 Result Diagrams: 05/13/19 03:25 05/13/19 03:25 EKG Reviewed by me: Yes (tachycardia) ROS - Review of Systems All systems: All other ROS were reviewed and found negative. Constitutional: reports: weakness. denies: fever, chills, sweats, malaise, other ENT: denies: ear pain, ear discharge, nose pain, nose discharge, nose congestion , mouth pain, mouth swelling, throat pain, throat swelling, other Respiratory: reports: shortness of breath, SOB with excertion. denies: cough, dry, hemoptysis, pleuritic pain, sputum, wheezing, other Cardiovascular: denies: chest pain, palpitations, orthopnea, paroxysmal noc. dyspnea, edema, light headedness, other Gastrointestinal: denies: nausea, vomitting, abdominal pain, diarrhea, constipation, melena, hematochezia, other Genitourinary: denies: dysuria, frequency, incontinence, hematuria, retention, other Musculoskeletal: denies: neck pain, shoulder pain, arm pain, back pain, hand pain, leg pain, foot pain, other Skin: denies: rash, lesions, ramon, bruising, other - Medication Medications: Active Medications Generic Name Dose Route Start Last Admin Trade Name Freq PRN Reason Stop Dose Admin Acetaminophen 650 mg 05/03/19 13:26 05/12/19 08:32 Tylenol Elixir PO 650 mg Q4H PRN Administration Headache/Fever or Pain 1-3 Albuterol/Ipratropium 3 ml 04/25/19 02:30 05/13/19 10:11 Duoneb NEB 3 ml [id number] RAIN Administration Artificial Tears 0 drop 05/05/19 05:40 05/05/19 05:52 Liquitears 15ml Bottle EA EYE 1 drop PRN PRN Administration Dry Eyes Docusate Sodium 100 mg 05/07/19 21:00 05/13/19 08:35 Colace Liquid PO Not Given BID [facility] Heparin Sodium (Porcine) 5,000 units 05/12/19 21:00 05/13/19 08:35 Heparin SC 5,000 units BID RAIN Administration Pantoprazole Sodium 40 mg 05/08/19 09:00 05/13/19 08:35 Protonix PO 40 mg DAILY RAIN Administration Polyethylene Glycol 17 gm 05/08/19 09:00 05/13/19 08:35 Miralax PO Not Given DAILY [facility] Sodium Bicarbonate 650 mg 04/29/19 03:10 05/06/19 22:55 Bicarbonate, Sodium PER TUBE 650 mg .PER PROTOCOL PRN Administration ENTERAL TUBE OCCLUSION Sodium Chloride 10 ml 04/28/19 21:00 05/13/19 08:36 Flush - Normal Saline IVF 10 ml Q12HR RAIN Administration Sodium Chloride 10 ml 04/28/19 09:44 05/07/19 09:30 Flush - Normal Saline IVF 10 ml PRN PRN Administration Saline Flush Warfarin Sodium 10 mg 05/12/19 17:00 05/12/19 18:06 Coumadin PO 10 mg 1700 RAIN Administration - Exam NAD, awake alert Eye: PERRL, anicteric sclera ENT: normocephalic atraumatic, no oropharyngeal lesions Neck: symmetric, no JVD Heart: RRR, no murmur, no gallops Respiratory: no wheezes, no rales, no ronchi Gastrointestinal: soft, non-tender, non-distended, normal bowel sounds Extremities: 1+ LE edema Skin: normal turgor, no lesions, no rashes Neurological: CN's grossly intact, normal sensation to touch, no focal deficits Musculoskeletal: normal tone, normal strength, no muscle wasting Psychiatric: normal affect, normal behavior Hosp A/P (1) Acute on chronic diastolic ACC/AHA stage C congestive heart failure Code(s): I50.33 - ACUTE ON CHRONIC DIASTOLIC (CONGESTIVE) HEART FAILURE Status : Acute (2) Acute on chronic respiratory failure with hypoxia and hypercapnia Code(s): J96.21 - ACUTE AND CHRONIC RESPIRATORY FAILURE WITH HYPOXIA; J96.22 - ACUTE AND CHRONIC RESPIRATORY FAILURE WITH HYPERCAPNIA Status: Acute (3) Atrial flutter Code(s): I48.92 - UNSPECIFIED ATRIAL FLUTTER Status: Acute (4) End stage renal disease on dialysis Code(s): N18.6 - END STAGE RENAL DISEASE; Z99.2 - DEPENDENCE ON RENAL DIALYSIS Status: Acute (5) Volume overload Code(s): E87.70 - FLUID OVERLOAD, UNSPECIFIED Status: Acute (6) Alcohol abuse Code(s): F10.10 - ALCOHOL ABUSE, UNCOMPLICATED Status: Chronic (7) HTN (hypertension) Code(s): I10 - ESSENTIAL (PRIMARY) HYPERTENSION Status: Chronic Qualifiers: (8) Lymphedema of both lower extremities Code(s): I89.0 - LYMPHEDEMA, NOT ELSEWHERE CLASSIFIED Status: Chronic (9) Macrocytosis Code(s): D75.89 - OTHER SPECIFIED DISEASES OF BLOOD AND BLOOD-FORMING ORGANS Status: Chronic (10) Morbid obesity with BMI of 50.0-59.9, adult Code(s): E66.01 - MORBID (SEVERE) OBESITY DUE TO EXCESS CALORIES; Z68.43 - BODY MASS INDEX (BMI) 50-59.9, ADULT Status: Chronic (11) Pickwickian syndrome Code(s): E66.2 - MORBID (SEVERE) OBESITY WITH ALVEOLAR HYPOVENTILATION Status : Chronic (12) Tobacco abuse Code(s): Z72.0 - TOBACCO USE Status: Chronic - Plan 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
--- NOTE | 2019-05-13 16:39 | PRG ---
DATE OF SERVICE: 05/13/2019 This is Olivia Allen NP dictating a report for Star Francisco MD. CHIEF COMPLAINT: Atrial flutter. SUBJECTIVE: The patient reports to be feeling better today. He denies any chest discomfort, palpitations, presyncope, or syncope. OBJECTIVE: GENERAL: The patient is well appearing and in no apparent distress. He is utilizing nasal CPAP. RESPIRATORY: Breath sounds are diminished throughout the lung jacques, but no adventitious sounds noted. Respiratory effort unlabored with good bilateral excursion. CARDIOVASCULAR: Regular rate and rhythm. S1 and S2. EXTREMITIES: Left groin site was clean and dry. There was no hematoma. 2+ bilateral lower extremity edema noted with stasis changes. NEUROLOGIC/PSYCHIATRIC: Oriented x3. Normal affect. Cranial nerves 2 through 12 grossly intact. DIAGNOSTIC DATA: The telemetry tracings were reviewed. We have seen sinus tachycardia, but no more episodes of atrial flutter and no atrial arrhythmias. IMPRESSION: 1. Paroxysmal typical atrial flutter, currently demonstrating sinus mechanism status post radiofrequency ablation of the cavotricuspid isthmus on 05/11/2019. 2. History of preserved left ventricular ejection fraction. 3. Morbid obesity. 4. Chronic obstructive pulmonary disease. 5. Acute on chronic kidney insufficiency, currently on hemodialysis. 6. Diastolic heart failure. 7. Severe lymphedema. 8. Hypoxic respiratory failure, improved. 9. Anticoagulation with Coumadin with subtherapeutic INR. PLAN: The patient underwent successful ablation of the cavotricuspid isthmus and is currently maintaining sinus mechanism. We would recommend continuing Coumadin to maintain an INR between 2 and 3. We will continue following the patient during hospitalization. Job ID: [id number] [facility]
[2019-05-13] MEDS: Warfarin Sodium 10 MG TAB PO SCH (18:08)
[2019-05-13] MEDS: Acetaminophen 650 MG/20.3 ML UDCUP PO PRN (21:42)
[2019-05-13] MEDS: Diltiazem HCl 125 MG, Admixture Fee 1 EACH in Sodium Chloride 0.9% 100 ML IVPB SCH (22:30)
[2019-05-14] MEDS: traMADol HCl 50 MG TAB PO PRN ×3 (04:29→19:39)
[2019-05-14 06:26] LABS: INR-International Normal Ratio 2.4
--- NOTE | 2019-05-14 08:51 | PRG ---
DATE OF SERVICE: 05/14/2019 SUBJECTIVE: This morning, he is awake, alert, responsive, complaining of pain in the groin, where he had the ablation done. OBJECTIVE: VITAL SIGNS: Temperature 98.7, pulse 107, saturations are 92 on high-flow at 45, and blood pressure 145/80. CHEST: Decreased breath sounds. No wheezing. CARDIAC: Normal S1 and S2. No gallops. ABDOMEN: No masses. IMPRESSION AND PLAN: Status post ablation, supraventricular tachycardia, morbid obesity, sleep apnea, and groin pain. Pulmonary fuller, continue high-flow. Continue PT and supportive care. We will follow. Job ID: [id number]
--- NOTE | 2019-05-14 10:02 | PRG ---
DATE OF SERVICE: 05/14/2019 SUBJECTIVE: Mr. Morgan is doing fair except for his left hip pain. This pain seems to be more sciatic in appearance. He has no pain or discomfort at the left frontal area of the left hip at the catheter insertion site. Overnight, he did develop some rapid heartbeats which appears to be atrial fibrillation with PAT runs alternating, eventually terminated with his Cardizem drip. He was started on Multaq this morning. OBJECTIVE: VITAL SIGNS: Blood pressure is 145/80, heart rate is 107, respirations 28, temperature 97.9 degrees Fahrenheit, O2 sats are 91%. GENERAL: He is alert and oriented morbidly obese man, in no apparent distress. NECK: Supple. Jugular veins difficult to visualize. CHEST: Coarse. No crackles. CARDIAC: Heart sounds are regular rate and rhythm. No murmur or gallop. ABDOMEN: Benign. Bowel sounds are positive. EXTREMITIES: The lower extremity is with 3+ lower extremity edema. Chronic venous stasis signs. The left femoral venous catheter insertion site seems to be healing adequately. LABORATORY DATA: The INR this morning is 2.4, jumped from yesterday at 1.2. The BUN is 29. Creatinine is 2.57. The platelet count is 96. ASSESSMENT AND PLAN: Mr. Morgan is a pleasant 48-year-old man with prior history of morbid obesity, recurrent atrial flutter, post ablation 2 days ago. He is maintaining sinus rhythm, but overnight had developed runs of PAT while being agitated in pain from his hip he says. He is responding well to diltiazem and also Multaq was initiated which is reasonable for suppression of atrial fibrillation. Alternatively, we could attempt diltiazem long-term as well. I discussed with him the difference between atrial flutter and fibrillation. Clearly, his atrial flutter circuit is not operative anymore after the ablation. Hence, he did not organize into atrial flutter even after the atrial fibrillation episode occurred. On the other hand, he is still not persisting atrial fibrillation, therefore drug suppression is more reasonable than considering an ablation procedure which would be complicated due to his morbid obesity with higher risk and with less success rate. He clearly needs to lose weight. For now, fluid weight loss is welcome with hemodialysis. Eventually, he might require some gastric bypass surgery. Short to medium term oral anticoagulation is reasonable post ablation about a month. If no recurrent atrial fibrillation is seen, he may be able to transition to aspirin. His CHADS-VASC score is 2 with diastolic CHF and hypertension. Coumadin therapy. INR increased today. Coumadin is on hold. We will need adjustment of the dose as he received higher dose of warfarin initially. We will follow up with you. Job ID: [id number]
[2019-05-14] MEDS: Polyethylene Glycol 3350 17 GM Packet PO SCH (10:40)
[2019-05-14] MEDS: Docusate Sodium 100 MG/10 ML UDCUP PO SCH ×2 (10:40→20:10)
[2019-05-14] MEDS ORDERED: Tuberculin PPD 0.1 ML VIAL I-DERMAL SCH ×2 (11:00→12:00)
--- NOTE | 2019-05-14 11:09 | PRG ---
DATE OF SERVICE: 05/14/2019 SUBJECTIVE: Patient was seen and examined at bedside and overnight events noted. Patient denies any shortness of breath or chest pain or palpitation. No history of nausea or vomiting or diarrhea or fever or chills or cramps. OBJECTIVE: GENERAL: This is a morbidly obese male, in no acute distress. VITAL SIGNS: Temperature 98.3. Heart rate 104. Respiratory rate . Blood pressure 147/83. HEENT: Atraumatic, normocephalic. Oral mucosa is moist NECK: Supple. CARDIOVASCULAR: S1, S2 heard. Rate and rhythm regular. RESPIRATORY: Clear to auscultation. GASTROINTESTINAL: Abdomen is soft. MUSCULOSKELETAL: 2+ edema. DERMATOLOGIC: No skin rash. NEUROLOGIC: Alert and awake and oriented X3. No focal neurologic deficits. Moving all the extremities. PSYCHIATRIC: Mood and affect normal. LABORATORY DATA: No labs done today. ASSESSMENT AND PLAN: 1. Acute kidney injury on chronic kidney disease, stage 3, dialysis dependent. No dialysis today. 2. Fluid overload. We will remove fluid. 3. Morbid obesity. 4. Hypertension. 5. Anemia of chronic disease. We will continue dialysis as tolerated. No dialysis today. Limit fluid intake. Job ID: [id number]
--- NOTE | 2019-05-14 13:25 | PDOC.HOSPP ---
- Subjective Subjective: Patient seen and examined. No new complaints. No overnight events - Objective Vital Signs & Weight: Vital Signs (12 hours) Temp Pulse Resp Pulse Ox 05/14/19 10:42 98.3 F 05/14/19 10:20 90 L 05/14/19 10:19 104 H 24 H 90 L 05/14/19 07:41 91 L 05/14/19 07:39 107 H 28 H 91 L 05/14/19 07:11 97.9 F 05/14/19 04:18 98.9 F 05/14/19 02:25 108 H 23 H 95 Weight Admit Weight 488 lb 9.6 oz Weight 413 lb Most Recent Monitor Data Heart Rate from ECG 103 NIBP 132/76 NIBP BP-Mean 94 Respiration from ECG 28 SpO2 91 I&O: 05/13/19 05/14/19 05/15/19 06:59 06:59 06:59 Intake Total 1120 1208.9 Output Total 800 6050 Balance 320 -4841.1 Result Diagrams: 05/13/19 03:25 05/13/19 03:25 EKG Reviewed by me: Yes ROS - Review of Systems All systems: All other ROS were reviewed and found negative. ENT: denies: ear pain, ear discharge, nose pain, nose discharge, nose congestion , mouth pain, mouth swelling, throat pain, throat swelling, other Respiratory: reports: cough, shortness of breath. denies: dry, hemoptysis, SOB with excertion, pleuritic pain, sputum, wheezing, other Cardiovascular: denies: chest pain, palpitations, orthopnea, paroxysmal noc. dyspnea, edema, light headedness, other Gastrointestinal: denies: nausea, vomitting, abdominal pain, diarrhea, constipation, melena, hematochezia, other Genitourinary: denies: dysuria, frequency, incontinence, hematuria, retention, other Musculoskeletal: denies: neck pain, shoulder pain, arm pain, back pain, hand pain, leg pain, foot pain, other Skin: denies: rash, lesions, ramon, bruising, other - Medication Medications: Active Medications Generic Name Dose Route Start Last Admin Trade Name Freq PRN Reason Stop Dose Admin Acetaminophen 650 mg 05/03/19 13:26 05/13/19 21:42 Tylenol Elixir PO 650 mg Q4H PRN Administration Headache/Fever or Pain 1-3 Albuterol/Ipratropium 3 ml 04/25/19 02:30 05/14/19 10:19 Duoneb NEB 3 ml [id number] RAIN Administration Artificial Tears 0 drop 05/05/19 05:40 05/05/19 05:52 Liquitears 15ml Bottle EA EYE 1 drop PRN PRN Administration Dry Eyes Docusate Sodium 100 mg 05/07/19 21:00 05/14/19 10:40 Colace Liquid PO 100 mg BID RAIN Administration Diltiazem HCl 125 mg/ 125 mls @ 5 mls/hr 05/13/19 22:30 05/13/19 22:30 Miscellaneous Medication 1 IVPB 125 mls each/ Sodium Chloride INF RAIN Administration Protocol Pantoprazole Sodium 40 mg 05/08/19 09:00 05/14/19 10:40 Protonix PO 40 mg DAILY RAIN Administration Polyethylene Glycol 17 gm 05/08/19 09:00 05/14/19 10:40 Miralax PO 17 gm DAILY RAIN Administration Sodium Bicarbonate 650 mg 04/29/19 03:10 05/06/19 22:55 Bicarbonate, Sodium PER TUBE 650 mg .PER PROTOCOL PRN Administration ENTERAL TUBE OCCLUSION Sodium Chloride 10 ml 04/28/19 21:00 05/14/19 10:58 Flush - Normal Saline IVF 10 ml Q12HR RAIN Administration Sodium Chloride 10 ml 04/28/19 09:44 05/07/19 09:30 Flush - Normal Saline IVF 10 ml PRN PRN Administration Saline Flush Tramadol HCl 50 mg 05/14/19 04:24 05/14/19 10:57 Ultram PO 50 mg Q6H PRN Administration Pain - Exam NAD, awake alert Eye: PERRL, anicteric sclera ENT: normocephalic atraumatic, no oropharyngeal lesions Neck: supple, symmetric Heart: RRR, no murmur Respiratory: no wheezes, no rales Gastrointestinal: soft, non-tender, non-distended Extremities: no cyanosis, no clubbing (lymphoedema) Skin: normal turgor, no lesions Hosp A/P (1) Acute on chronic diastolic ACC/AHA stage C congestive heart failure Code(s): I50.33 - ACUTE ON CHRONIC DIASTOLIC (CONGESTIVE) HEART FAILURE Status : Acute (2) Acute on chronic respiratory failure with hypoxia and hypercapnia Code(s): J96.21 - ACUTE AND CHRONIC RESPIRATORY FAILURE WITH HYPOXIA; J96.22 - ACUTE AND CHRONIC RESPIRATORY FAILURE WITH HYPERCAPNIA Status: Acute (3) Atrial flutter Code(s): I48.92 - UNSPECIFIED ATRIAL FLUTTER Status: Acute (4) End stage renal disease on dialysis Code(s): N18.6 - END STAGE RENAL DISEASE; Z99.2 - DEPENDENCE ON RENAL DIALYSIS Status: Acute (5) Volume overload Code(s): E87.70 - FLUID OVERLOAD, UNSPECIFIED Status: Acute (6) Alcohol abuse Code(s): F10.10 - ALCOHOL ABUSE, UNCOMPLICATED Status: Chronic (7) HTN (hypertension) Code(s): I10 - ESSENTIAL (PRIMARY) HYPERTENSION Status: Chronic Qualifiers: (8) Lymphedema of both lower extremities Code(s): I89.0 - LYMPHEDEMA, NOT ELSEWHERE CLASSIFIED Status: Chronic (9) Macrocytosis Code(s): D75.89 - OTHER SPECIFIED DISEASES OF BLOOD AND BLOOD-FORMING ORGANS Status: Chronic (10) Morbid obesity with BMI of 50.0-59.9, adult Code(s): E66.01 - MORBID (SEVERE) OBESITY DUE TO EXCESS CALORIES; Z68.43 - BODY MASS INDEX (BMI) 50-59.9, ADULT Status: Chronic (11) Pickwickian syndrome Code(s): E66.2 - MORBID (SEVERE) OBESITY WITH ALVEOLAR HYPOVENTILATION Status : Chronic (12) Tobacco abuse Code(s): Z72.0 - TOBACCO USE Status: Chronic - Plan old records reviewed/req, social services director, respiratory therapy still on high flow oxygen on cardizem drip will need placement medication reviewed as below symptomatic treatment not ready for discharge pulmonary and cardiology following
[2019-05-14] MEDS: Dronedarone HCl 400 MG TAB PO SCH (17:53)
[2019-05-14] MEDS: Diltiazem HCl 125 MG, Admixture Fee 1 EACH in Sodium Chloride 0.9% 100 ML IVPB SCH (22:12)
[2019-05-15] MEDS: traMADol HCl 50 MG TAB PO PRN ×3 (03:20→19:50)
[2019-05-15 05:14] LABS: INR-International Normal Ratio 2.1; Prothrombin Time 23.1 SEC (12.0-14.7)
[2019-05-15 05:26] LABS: Anion Gap 12 mmol/L (10-20); BUN (Urea Nitrogen) 18 mg/dL (8.9-20.6); Calc. Creatinine Clearance 218 mL/min (70-130); Calcium 9.4 mg/dL (7.8-10.44); Carbon Dioxide 29 mmol/L (22-29); Chloride 100 mmol/L (98-107); Estimated GFR-MDRD 71; Glucose 86 mg/dL (70-105); Sodium 137 mmol/L (136-145)
[2019-05-15] MEDS: Docusate Sodium 100 MG/10 ML UDCUP PO SCH ×2 (09:05→20:41)
[2019-05-15] MEDS: Polyethylene Glycol 3350 17 GM Packet PO SCH (09:05)
[2019-05-15] MEDS: Dronedarone HCl 400 MG TAB PO SCH ×2 (09:05→16:12)
--- NOTE | 2019-05-15 09:09 | PRG ---
DATE OF SERVICE: 05/15/2019 SUBJECTIVE: This morning, awake, alert, and responsive. Denies difficulty breathing. He still complains of hip pain. OBJECTIVE: VITAL SIGNS: Saturations are 92% on high-flow 30 L, pulse 120, temperature 97, and blood pressure 120/75. CHEST: Decreased breath sounds. No wheezing. CARDIAC: Normal S1 and S2. No gallops. ABDOMEN: No masses. LABORATORY DATA: Creatinine is normal. INR is 2.1. ASSESSMENT: 1. Morbid obesity. 2. Sleep apnea. 3. Supraventricular tachycardia. PLAN: Continue high-flow. Continue neb treatment. Continue PT. Eventually placement. Job ID: [id number]
[2019-05-15] MEDS ORDERED: Digoxin 0.5 MG/2 ML AMP SLOW IVP SCH (13:00)
--- NOTE | 2019-05-15 14:37 | PRG ---
DATE OF SERVICE: 05/15/2019 SUBJECTIVE: He noticed a lot of discomfort in his left hip, left thigh area since the time of his cardiac ablation. Also, he said that since he started doing PT today, his heart was starting acting up. OBJECTIVE: VITAL SIGNS: Blood pressure is 129/89, pulse is 120s, respiratory rate is 23, and O2 saturation is 95% on O2. HEENT: His pupils are responding to light properly. Sclerae are nonicteric. NECK: Supple and obese. LUNGS: Breath sounds diminished at both bases. HEART: S1 and S2, somewhat irregular fast rhythm. ABDOMEN: Soft, obese, and nontender. EXTREMITIES: Massive lymphedema present. NEUROLOGICAL: He is able to follow my commands. He moves his lower extremities with difficulty since he is very overweight or obese. LABORATORY DATA: Showed INR of 2.1, PT of 23.1. Normal chemistry. IMPRESSION: 1. Acute on chronic diastolic stage C congestive heart failure. 2. Acute on chronic respiratory failure with hypoxia and hypercapnia. 3. Atrial flutter. 4. Renal failure, status post dialysis. Kidney function improved. 5. Hypertension. 6. Lymphedema of both lower extremities. 7. Pickwickian syndrome. PLAN: The patient was started on digoxin by Dr. Cordero for his atrial flutter. He was on Multaq and on Cardizem drip and JENNIE CORTEZ was called in to help. His warfarin will be restarted at 5 mg daily. The next dose is tonight at 5 o'clock. We will continue p.r.n. medication, which is tramadol for his left hip/thigh pain of unclear etiology at this point. We will continue the rest of the regimen and we will continue PT. Job ID: [id number]
[2019-05-15] MEDS: Digoxin 0.5 MG/2 ML AMP SLOW IVP SCH ×2 (16:11→17:51)
[2019-05-15] MEDS: Warfarin Sodium 5 MG TAB PO SCH (16:12)
--- NOTE | 2019-05-15 16:44 | PRG ---
DATE OF SERVICE: 05/15/2019 SUBJECTIVE: Patient was seen and examined at bedside and overnight events noted. Patient denies any shortness of breath or chest pain or palpitation. No history of nausea or vomiting or diarrhea or fever or chills or cramps. OBJECTIVE: GENERAL: This is a morbidly obese in no apparent distress. VITAL SIGNS: Temperature 98.9. Heart rate 105. Respiratory rate . Blood pressure 126/71. HEENT: Atraumatic, normocephalic. Oral mucosa is moist NECK: Supple. CARDIOVASCULAR: S1, S2 heard. Rate and rhythm regular. RESPIRATORY: Clear to auscultation. GASTROINTESTINAL: Abdomen is soft. MUSCULOSKELETAL: No tenderness. No edema. DERMATOLOGIC: No skin rash. NEUROLOGIC: Alert and awake and oriented X3. No focal neurologic deficits. Moving all the extremities. PSYCHIATRIC: Mood and affect normal. LABORATORY DATA: Potassium is 4.0, BUN is 18, creatinine is 1.1. ASSESSMENT AND PLAN: 1. Acute kidney injury on chronic kidney disease stage 3. Renal function is much better. He is making urine. Plan is to hold dialysis and monitor limit fluid intake. 2. Fluid overload. Limit fluid intake. 3. Morbid obesity. 4. Hypertension. 5. Anemia. 6. We will put on fluid restriction and we will monitor. Job ID: [id number]
--- NOTE | 2019-05-15 17:14 | PRG ---
DATE OF SERVICE: 05/15/2019 I am seeing Mr. Morgan at our [facility] step-down ICU as an electrophysiology continuous improvement consultant followup. SUBJECTIVE: Mr. Morgan seems to be doing fair. He still has lots of back and leg pains, which upsets him and also seem to be provoking some of his arrhythmia runs. He is receiving steroids and pain medications for that. His dyspnea has improved. His heart is beating regular at times, but also feels some palpitations frequently. Denies chest pains. No stroke-like symptoms. No neurological deficit deficits. No bleeding issues are noted. OBJECTIVE: VITAL SIGNS: Blood pressure is 126/71, heart rate 105, respiration is 15, and temperature 98.9 degrees Fahrenheit. GENERAL: Alert and oriented, morbidly obese man, in no apparent distress. NECK: Supple. Jugular veins not distended. CHEST: Coarse with crackles. HEART: Sounds are regular to rate and rhythm. The occasional ectopy is noted. No murmur or gallop. ABDOMEN: Obese. Benign. EXTREMITIES: Lower extremities without cyanosis. 3+ edema is noted. In's and out's: The patient is down to 414 pounds with presumed negative output from yesterday. LABORATORY DATA: From today; BUN is 18, creatinine 1.1, sodium 137, potassium is 4, and albumin level is 3. ASSESSMENT AND PLAN: Mr. Morgan is a 48-year-old man with prior history of morbid obesity, preserved left ventricular ejection fraction on recent LO, who has also end-stage renal disease, required hemodialysis. He had sustained atrial flutter and underwent LO-guided CTI ablation elevating the atrial flutter for while he was in sinus rhythm, but last two days we are noticing the recurrent episodes of atrial fibrillation. Episode seems to be provoked by some discomfort and distress, likely he is struggling to achieve a less painful position, could put extra stress on his heart increasing his atrial ectopy. He seems to be tolerating Multaq well, which was initiated on , and is still being loaded at this time. He is reasonably rate controlled most of the time with the addition of digoxin. Our plan at this point is continued rate and rhythm control with Multaq and digoxin, p.r.n. IV diltiazem. Also continue Coumadin for anticoagulation and adjust INRs to 2 to 3 range, currently is therapeutic. He is not a good candidate for pulmonary venous isolation procedure, hence his morbid obesity and continued weight loss efforts should be continued and pursued. If necessary, could consider more potent antiarrhythmic agents, although choices are limited. He has history of renal insufficiency with flecainide, could be difficult choice, especially renal function will be worsen in the future and also amiodarone might be a limited choice, hence his poor pulmonary status. For now, I agree with continuing Tessa. At this point, we will check on him next week. My partners will be rounding on him as well. Job ID: [id number]
[2019-05-16] MEDS: Diltiazem HCl 125 MG, Admixture Fee 1 EACH in Sodium Chloride 0.9% 100 ML IVPB SCH
[2019-05-16 05:21] LABS: INR-International Normal Ratio 2.4
[2019-05-16 05:31] LABS: Anion Gap 11 mmol/L (10-20); BUN (Urea Nitrogen) 16 mg/dL (8.9-20.6); Calc. Creatinine Clearance 250 mL/min (70-130); Calcium 9.3 mg/dL (7.8-10.44); Carbon Dioxide 30 mmol/L (22-29); Chloride 100 mmol/L (98-107); Estimated GFR-MDRD 83; Glucose 98 mg/dL (70-105); Potassium 4.1 mmol/L (3.5-5.1); Sodium 137 mmol/L (136-145)
[2019-05-16] MEDS: Furosemide 40 MG/4 ML VIAL SLOW IVP SCH (09:00)
[2019-05-16] MEDS: Dronedarone HCl 400 MG TAB PO SCH ×2 (09:00→17:23)
[2019-05-16] MEDS: Digoxin 0.25 MG TAB PO SCH (09:00)
[2019-05-16] MEDS: Docusate Sodium 100 MG/10 ML UDCUP PO SCH ×2 (09:00→21:38)
[2019-05-16] MEDS: Polyethylene Glycol 3350 17 GM Packet PO SCH (09:01)
--- NOTE | 2019-05-16 10:19 | PRG ---
DATE OF SERVICE: 05/16/2019 SUBJECTIVE: This is a 48-year-old, morbidly obese gentleman. OBJECTIVE: VITAL SIGNS: On high-flow, O2 saturations 88 to 90. He is still in atrial fibrillation. Blood pressure 164/70. Pulse 90, irregular. Respiratory rate 20. No shortness of breath. CHEST: Clear. CARDIAC: Normal S1 and S2. No gallops. ABDOMEN: Soft. IMPRESSION: 1. Morbid obesity, sleep apnea. 2. Atrial fibrillation, status post ablation. 3. Renal failure, improved. Pulmonary has nothing additional to offer except for aggressive PT, supportive care. Job ID: [id number]
[2019-05-16] MEDS ORDERED: READ PPD TEST SITE PO SCH (14:00)
[2019-05-16] MEDS: Warfarin Sodium 5 MG TAB PO SCH (17:23)
--- NOTE | 2019-05-16 17:43 | PDOC.HOSPP ---
- Subjective Subjective: 48 y/o morbidly obese male with chronic bilateral lower extremity lymphedema admitted with acute mental status change. Also found to have acute on chronic respiratory failure with hypercarbia and hypoxia as well as hyponatremia. - Objective Vital Signs & Weight: Vital Signs (12 hours) Temp Pulse Pulse Pulse Resp BP BP 05/16/19 15:14 98.4 F 05/16/19 15:01 05/16/19 14:58 100 21 H 05/16/19 11:17 97.6 F 05/16/19 11:03 05/16/19 10:56 97 17 05/16/19 10:08 100 93 166/82 H 161/75 H 05/16/19 09:00 95 05/16/19 08:15 05/16/19 07:38 97.6 F 05/16/19 07:18 05/16/19 07:16 95 19 Pulse Ox 05/16/19 15:14 05/16/19 15:01 89 L 05/16/19 14:58 89 L 05/16/19 11:17 05/16/19 11:03 90 L 05/16/19 10:56 91 L 05/16/19 10:08 05/16/19 09:00 05/16/19 08:15 87 L 05/16/19 07:38 05/16/19 07:18 90 L 05/16/19 07:16 90 L Weight Admit Weight 488 lb 9.6 oz Weight 416 lb 1.6 oz Most Recent Monitor Data Heart Rate from ECG 101 NIBP 131/59 NIBP BP-Mean 83 Respiration from ECG 19 SpO2 83 I&O: 05/15/19 05/16/19 05/17/19 06:59 06:59 06:59 Intake Total 910 1670 Output Total 1000 1300 Balance -90 370 Result Diagrams: 05/13/19 03:25 05/16/19 03:30 ROS - Review of Systems All systems: All other ROS were reviewed and found negative. - Medication Medications: Active Medications Generic Name Dose Route Start Last Admin Trade Name Freq PRN Reason Stop Dose Admin Acetaminophen 650 mg 05/03/19 13:26 05/13/19 21:42 Tylenol Elixir PO 650 mg Q4H PRN Administration Headache/Fever or Pain 1-3 Albuterol/Ipratropium 3 ml 04/25/19 02:30 07/27/19 14:58 Duoneb NEB 3 ml [id number] RAIN Administration Artificial Tears 0 drop 05/05/19 05:40 05/05/19 05:52 Liquitears 15ml Bottle EA EYE 1 drop PRN PRN Administration Dry Eyes Digoxin 0.25 mg 05/16/19 09:00 05/16/19 09:00 Lanoxin PO 0.25 mg QAM RAIN Administration Docusate Sodium 100 mg 05/07/19 21:00 05/16/19 09:00 Colace Liquid PO 100 mg BID RAIN Administration Dronedarone 400 mg 05/14/19 17:00 05/16/19 17:23 Multaq PO 400 mg BID-WM RAIN Administration Furosemide 40 mg 05/16/19 09:00 05/16/19 09:00 Lasix SLOW IVP 40 mg DAILY RAIN Administration Diltiazem HCl 125 mg/ 125 mls @ 5 mls/hr 05/13/19 22:30 05/16/19 00:00 Miscellaneous Medication 1 IVPB 125 mls each/ Sodium Chloride INF RAIN Administration Protocol Pantoprazole Sodium 40 mg 05/08/19 09:00 05/16/19 09:00 Protonix PO 40 mg DAILY RAIN Administration Polyethylene Glycol 17 gm 05/08/19 09:00 05/16/19 09:01 Miralax PO 17 gm DAILY RAIN Administration Sodium Bicarbonate 650 mg 04/29/19 03:10 05/06/19 22:55 Bicarbonate, Sodium PER TUBE 650 mg .PER PROTOCOL PRN Administration ENTERAL TUBE OCCLUSION Sodium Chloride 10 ml 04/28/19 21:00 05/16/19 09:01 Flush - Normal Saline IVF 10 ml Q12HR RAIN Administration Sodium Chloride 10 ml 04/28/19 09:44 05/07/19 09:30 Flush - Normal Saline IVF 10 ml PRN PRN Administration Saline Flush Tramadol HCl 50 mg 05/14/19 04:24 05/15/19 19:50 Ultram PO 50 mg Q6H PRN Administration Pain Warfarin Sodium 5 mg 05/15/19 17:00 05/16/19 17:23 Coumadin PO 5 mg 1700 RAIN Administration - Exam awake alert (morbidly obese) Eye: PERRL ENT: normocephalic atraumatic Neck: symmetric (short thick neck noted) Heart: RRR Respiratory: no rales, no ronchi (diminished air movement at the bases) Gastrointestinal: soft, non-tender, non-distended, normal bowel sounds ( morbidly obese) Extremities: no cyanosis (massive bilateral lower extremities with chronic lymphedema changes.) Neurological: CN's grossly intact, no focal deficits Psychiatric: normal affect, A&O x 3 Hosp A/P (1) Acute renal failure Status: Acute (2) Hyponatremia Code(s): E87.1 - HYPO-OSMOLALITY AND HYPONATREMIA Status: Acute (3) Acute on chronic diastolic ACC/AHA stage C congestive heart failure Code(s): I50.33 - ACUTE ON CHRONIC DIASTOLIC (CONGESTIVE) HEART FAILURE Status : Acute (4) Acute on chronic respiratory failure with hypoxia and hypercapnia Code(s): J96.21 - ACUTE AND CHRONIC RESPIRATORY FAILURE WITH HYPOXIA; J96.22 - ACUTE AND CHRONIC RESPIRATORY FAILURE WITH HYPERCAPNIA Status: Acute (5) Atrial flutter Code(s): I48.92 - UNSPECIFIED ATRIAL FLUTTER Status: Acute (6) Volume overload Code(s): E87.70 - FLUID OVERLOAD, UNSPECIFIED Status: Acute (7) HTN (hypertension) Code(s): I10 - ESSENTIAL (PRIMARY) HYPERTENSION Status: Chronic Qualifiers: (8) Lymphedema of both lower extremities Code(s): I89.0 - LYMPHEDEMA, NOT ELSEWHERE CLASSIFIED Status: Chronic (9) Morbid obesity with BMI of 50.0-59.9, adult Code(s): E66.01 - MORBID (SEVERE) OBESITY DUE TO EXCESS CALORIES; Z68.43 - BODY MASS INDEX (BMI) 50-59.9, ADULT Status: Chronic (10) Pickwickian syndrome Code(s): E66.2 - MORBID (SEVERE) OBESITY WITH ALVEOLAR HYPOVENTILATION Status : Chronic - Plan Continue oxygen therapy as well as non invasive respiratory support. Continue prn diuretics. Rate control medications as per cardiology. Follow CBC and BMP
[2019-05-16] MEDS: traMADol HCl 50 MG TAB PO PRN (19:23)
[2019-05-17] MEDS: Diltiazem HCl 125 MG, Admixture Fee 1 EACH in Sodium Chloride 0.9% 100 ML IVPB SCH (02:30)
[2019-05-17 08:10] LABS: Anion Gap 12 mmol/L (10-20); BUN (Urea Nitrogen) 14 mg/dL (8.9-20.6); Calc. Creatinine Clearance 273 mL/min (70-130); Calcium 9.1 mg/dL (7.8-10.44); Carbon Dioxide 29 mmol/L (22-29); Chloride 99 mmol/L (98-107); Estimated GFR-MDRD Greater than 90; Glucose 87 mg/dL (70-105); Potassium 4.3 mmol/L (3.5-5.1); Sodium 136 mmol/L (136-145)
[2019-05-17 08:12] LABS: INR-International Normal Ratio 3.7; Prothrombin Time 36.5 SEC (12.0-14.7)
[2019-05-17] MEDS: Furosemide 40 MG/4 ML VIAL SLOW IVP SCH (08:50)
[2019-05-17] MEDS: Digoxin 0.25 MG TAB PO SCH (08:50)
[2019-05-17] MEDS: Docusate Sodium 100 MG/10 ML UDCUP PO SCH ×2 (08:50→21:09)
[2019-05-17] MEDS: Dronedarone HCl 400 MG TAB PO SCH ×2 (08:51→17:51)
[2019-05-17] MEDS: Polyethylene Glycol 3350 17 GM Packet PO SCH (08:51)
--- NOTE | 2019-05-17 09:12 | PRG ---
DATE OF SERVICE: 05/17/2019 SUBJECTIVE: This morning, he is better. OBJECTIVE: VITAL SIGNS: His high-flow 30 L, saturations high 80s, temperature 98, pulse 95, and blood pressure 130/83. LUNGS: Denies any difficulty breathing. CHEST: Decreased breath sounds. No wheezing. CARDIAC: Normal S1 and S2. No gallops. LABORATORY DATA: INR 3.7. IMPRESSION: Supraventricular tachycardia status post ablation, chronic obstructive pulmonary disease, and hypoventilation syndrome. Eventually placement, nocturnal continuous positive airway pressure/bilevel positive airway pressure, daytime high-flow. We will follow. Job ID: [id number]
--- NOTE | 2019-05-17 12:15 | PRG ---
DATE OF SERVICE: 05/17/2019 SUBJECTIVE: Patient was seen and examined at bedside and overnight events noted. Patient denies any shortness of breath or chest pain or palpitation. No history of nausea or vomiting or diarrhea or fever or chills or cramps. OBJECTIVE: GENERAL: This is a morbidly obese male, in no apparent distress. VITAL SIGNS: Temperature 97.7. Heart rate 97. Respiratory rate 21. Blood pressure 132/56. Urine output was 3950. HEENT: Atraumatic, normocephalic. Oral mucosa is moist NECK: Supple. CARDIOVASCULAR: S1, S2 heard. Rate and rhythm regular. RESPIRATORY: Clear to auscultation. GASTROINTESTINAL: Abdomen is soft. MUSCULOSKELETAL: No tenderness. No edema. DERMATOLOGIC: No skin rash. NEUROLOGIC: Alert and awake and oriented X3. No focal neurologic deficits. Moving all the extremities. PSYCHIATRIC: Mood and affect normal. LABORATORY DATA: Potassium is 4.3, BUN is 14, and creatinine is 0.8. ASSESSMENT AND PLAN: 1. Acute kidney injury on chronic kidney stage 3, now off dialysis. Making urine, almost made 3 L of urine yesterday on Lasix. Recommend cautious use of Lasix. Also the dialysis catheter can be removed. He feels renal function stays stable. 2. Fluid overload on Lasix. Cautious use of Lasix. Monitor I's and O's closely. 3. Morbid obesity. 4. Hypertension. 5. Anemia of chronic disease. 6. Morbid obesity. 7. Acute hypoxic respiratory failure, fluid overload on Lasix. Monitor cardiorespiratory status and fluid intake and output closely. Avoid nephrotoxins at this point. Job ID: [id number]
--- NOTE | 2019-05-17 13:18 | PDOC.HOSPP ---
- Subjective Subjective: 48 y/o morbidly obese male with chronic bilateral lower extremity lymphedema admitted with acute mental status change. Also found to have acute on chronic respiratory failure with hypercarbia and hypoxia as well as hyponatremia. No new problem. Diuresing well with diuretics. Still on high flow oxygen /BIPAP. - Objective Vital Signs & Weight: Vital Signs (12 hours) Temp Pulse Resp Pulse Ox 05/17/19 11:22 97.7 F 05/17/19 10:32 97 22 H 05/17/19 08:50 95 05/17/19 07:33 98.0 F 05/17/19 06:18 86 L 05/17/19 06:17 95 18 05/17/19 04:31 98.2 F 05/17/19 02:20 92 16 87 L Weight Admit Weight 488 lb 9.6 oz Weight 410 lb 3.2 oz Most Recent Monitor Data Heart Rate from ECG 96 NIBP 149/73 NIBP BP-Mean 98 Respiration from ECG 28 SpO2 85 I&O: 05/16/19 05/17/19 05/18/19 06:59 06:59 06:59 Intake Total 1670 1520 Output Total 1300 3950 100 Balance 370 -2430 -100 Result Diagrams: 05/13/19 03:25 05/17/19 03:30 ROS - Review of Systems All systems: All other ROS were reviewed and found negative. - Medication Medications: Active Medications Generic Name Dose Route Start Last Admin Trade Name Freq PRN Reason Stop Dose Admin Acetaminophen 650 mg 05/03/19 13:26 05/13/19 21:42 Tylenol Elixir PO 650 mg Q4H PRN Administration Headache/Fever or Pain 1-3 Albuterol/Ipratropium 3 ml 04/25/19 02:30 05/17/19 10:32 Duoneb NEB 3 ml [id number] RAIN Administration Artificial Tears 0 drop 05/05/19 05:40 05/05/19 05:52 Liquitears 15ml Bottle EA EYE 1 drop PRN PRN Administration Dry Eyes Digoxin 0.25 mg 05/16/19 09:00 05/17/19 08:50 Lanoxin PO 0.25 mg QAM RAIN Administration Docusate Sodium 100 mg 05/07/19 21:00 05/17/19 08:50 Colace Liquid PO 100 mg BID RAIN Administration Dronedarone 400 mg 05/14/19 17:00 05/17/19 08:51 Multaq PO 400 mg BID-WM RAIN Administration Furosemide 40 mg 05/16/19 09:00 05/17/19 08:50 Lasix SLOW IVP 40 mg DAILY RAIN Administration Diltiazem HCl 125 mg/ 125 mls @ 5 mls/hr 05/13/19 22:30 05/17/19 02:30 Miscellaneous Medication 1 IVPB 125 mls each/ Sodium Chloride INF RAIN Administration Protocol Pantoprazole Sodium 40 mg 05/08/19 09:00 05/17/19 08:50 Protonix PO 40 mg DAILY RAIN Administration Polyethylene Glycol 17 gm 05/08/19 09:00 05/17/19 08:51 Miralax PO Not Given DAILY RAIN Sodium Bicarbonate 650 mg 04/29/19 03:10 05/06/19 22:55 Bicarbonate, Sodium PER TUBE 650 mg .PER PROTOCOL PRN Administration ENTERAL TUBE OCCLUSION Sodium Chloride 10 ml 04/28/19 21:00 05/17/19 08:51 Flush - Normal Saline IVF 10 ml Q12HR RAIN Administration Sodium Chloride 10 ml 04/28/19 09:44 05/07/19 09:30 Flush - Normal Saline IVF 10 ml PRN PRN Administration Saline Flush Tramadol HCl 50 mg 05/14/19 04:24 05/16/19 19:23 Ultram PO 50 mg Q6H PRN Administration Pain Warfarin Sodium 5 mg 05/15/19 17:00 05/16/19 17:23 Coumadin PO 5 mg 1700 RAIN Administration - Exam awake alert (morbidly obese) Eye: anicteric sclera ENT: normocephalic atraumatic Neck: symmetric Heart: RRR Respiratory: no wheezes, no ronchi (fair air entry bilaterally though decreased at the bases) Gastrointestinal: soft, non-tender (morbidly obese), non-distended, normal bowel sounds Extremities: no cyanosis (huge lower extremities with no obvious edema. chronic lymhedematous changes noted on bolth lower limbs) Neurological: CN's grossly intact, no focal deficits Psychiatric: A&O x 3 Hosp A/P (1) Acute on chronic respiratory failure with hypoxia and hypercapnia Code(s): J96.21 - ACUTE AND CHRONIC RESPIRATORY FAILURE WITH HYPOXIA; J96.22 - ACUTE AND CHRONIC RESPIRATORY FAILURE WITH HYPERCAPNIA Status: Acute (2) Acute on chronic diastolic ACC/AHA stage C congestive heart failure Code(s): I50.33 - ACUTE ON CHRONIC DIASTOLIC (CONGESTIVE) HEART FAILURE Status : Acute (3) Acute renal failure Status: Acute (4) Hyponatremia Code(s): E87.1 - HYPO-OSMOLALITY AND HYPONATREMIA Status: Acute (5) Atrial flutter Code(s): I48.92 - UNSPECIFIED ATRIAL FLUTTER Status: Acute (6) Volume overload Code(s): E87.70 - FLUID OVERLOAD, UNSPECIFIED Status: Acute (7) HTN (hypertension) Code(s): I10 - ESSENTIAL (PRIMARY) HYPERTENSION Status: Chronic Qualifiers: (8) Lymphedema of both lower extremities Code(s): I89.0 - LYMPHEDEMA, NOT ELSEWHERE CLASSIFIED Status: Chronic (9) Morbid obesity with BMI of 50.0-59.9, adult Code(s): E66.01 - MORBID (SEVERE) OBESITY DUE TO EXCESS CALORIES; Z68.43 - BODY MASS INDEX (BMI) 50-59.9, ADULT Status: Chronic (10) Pickwickian syndrome Code(s): E66.2 - MORBID (SEVERE) OBESITY WITH ALVEOLAR HYPOVENTILATION Status : Chronic - Plan Atrial flutter treatment as per cardiology. Still on caradizem infusion and multaq. Continue diuretic as per [employer] high flow oxygen during the day and BIPAP at nights to continue.
[2019-05-17] MEDS: traMADol HCl 50 MG TAB PO PRN ×2 (14:55→21:08)
[2019-05-17] MEDS ORDERED: Warfarin Sodium 5 MG TAB PO SCH (17:00)
[2019-05-18 04:34] LABS: #Eosinphils 0.1 thou/uL (0.0-0.7); #Lymphocytes 1.6 thou/uL (1.20-3.40); #Monocytes 0.5 thou/uL (0.11-0.59); #Neutrophils 2.1 thou/uL (1.40-6.50); %Basophils 0.8 % (0.0-1.0); %Eosinophils 3.4 % (0.0-10.0); %Lymphocytes 37.1 % (21.0-51.0); %Neutrophils 47.7 % (42.0-75.0); Hemoglobin 11.4 g/dL (14.0-18.0); Mean Corpuscular HGB CONC 32.4 g/dL (32.0-36.0); Mean Corpuscular Hemoglobin 31.7 pg (27.0-31.0); Mean Corpuscular Volume 97.6 fL (78.0-98.0); Mean Platelet Volume 7.8 fL (7.4-10.4); Platelet Count 214 thou/uL (130-400); RBC Distribution Width 14.4 % (11.5-14.5); Red Blood Cell (RBC) Count 3.59 mill/uL (4.70-6.10); White Blood Cell (WBC) Count 4.4 thou/uL (4.8-10.8)
[2019-05-18 04:36] LABS: INR-International Normal Ratio 3.3; Prothrombin Time 33.5 SEC (12.0-14.7)
[2019-05-18 04:51] LABS: Anion Gap 12 mmol/L (10-20); BUN (Urea Nitrogen) 13 mg/dL (8.9-20.6); Calc. Creatinine Clearance 276 mL/min (70-130); Calcium 9.1 mg/dL (7.8-10.44); Carbon Dioxide 34 mmol/L (22-29); Chloride 97 mmol/L (98-107); Estimated GFR-MDRD Greater than 90; Glucose 87 mg/dL (70-105); Potassium 4.2 mmol/L (3.5-5.1); Sodium 139 mmol/L (136-145)
--- NOTE | 2019-05-18 08:39 | EKG ---
Test Reason : STAT Blood Pressure : / mmHG Vent. Rate : 146 BPM Atrial Rate : 085 BPM P-R Int : 000 ms QRS Dur : 086 ms QT Int : 336 ms P-R-T Axes : 000 041 065 degrees QTc Int : 523 ms Supraventricular tachycardia Otherwise normal ECG When compared with ECG of 24-APR-2019 22:29, Sinus rhythm has replaced Atrial flutter Minimal criteria for Inferior infarct are no longer Present ST no longer depressed in Inferior leads T wave inversion no longer evident in Lateral leads Confirmed by DR. Cece DODD ([id number]) on 05/18/2019 8:39:17 AM Referred By: MARK Confirmed By:DR. Cece DODD
--- NOTE | 2019-05-18 09:20 | HP ---
HISTORY OF PRESENT ILLNESS: Nikita Morgan is a 48-year-old morbidly obese gentleman, who is still on high-flow, still having difficulty breathing. No coughing, chest pain. PHYSICAL EXAMINATION: VITAL SIGNS: His saturations are 93%, pulse 73, respiratory rate 24, blood pressure 126/60. CHEST: Bilateral rhonchi. CARDIAC: Normal S1, S2. No gallops. ABDOMEN: No masses. LABORATORY DATA: Unremarkable. IMPRESSION: Chronic obstructive pulmonary disease, sleep apnea, respiratory failure, renal failure, resolved. Continue high-flow. Continue neb treatments. Continue nocturnal BiPAP. Eventually placement. Job ID: [id number]
[2019-05-18] MEDS: Furosemide 40 MG/4 ML VIAL SLOW IVP SCH (10:00)
[2019-05-18] MEDS: Dronedarone HCl 400 MG TAB PO SCH ×2 (10:01→17:36)
[2019-05-18] MEDS: Digoxin 0.25 MG TAB PO SCH (10:02)
[2019-05-18] MEDS: Polyethylene Glycol 3350 17 GM Packet PO SCH (10:02)
[2019-05-18] MEDS: Docusate Sodium 100 MG/10 ML UDCUP PO SCH ×2 (10:02→21:19)
[2019-05-18] MEDS: traMADol HCl 50 MG TAB PO PRN ×2 (10:04→21:17)
--- NOTE | 2019-05-18 15:37 | PRG ---
DATE OF SERVICE: 05/16/2019 SUBJECTIVE: Patient was seen and examined at bedside and overnight events noted. Patient denies any shortness of breath or chest pain or palpitation. No history of nausea or vomiting or diarrhea or fever or chills or cramps. OBJECTIVE: GENERAL: This is a morbidly obese male, in no apparent distress. VITAL SIGNS: Temperature . Heart rate 95. Respiratory rate . Blood pressure . HEENT: Atraumatic, normocephalic. Oral mucosa is moist NECK: Supple. CARDIOVASCULAR: S1, S2 heard. Rate and rhythm regular. RESPIRATORY: Clear to auscultation. GASTROINTESTINAL: Abdomen is soft. MUSCULOSKELETAL: No tenderness. No edema. DERMATOLOGIC: No skin rash. NEUROLOGIC: Alert and awake and oriented X3. No focal neurologic deficits. Moving all the extremities. PSYCHIATRIC: Mood and affect normal. LABORATORY DATA: Potassium is 4.1, BUN is 16, and creatinine is 0.9. ASSESSMENT AND PLAN: 1. Acute kidney injury on chronic kidney disease stage , much better. Renal function is better, most likely not on any dialysis. We will hold dialysis. We will monitor. 2. fluid overload. Limit fluid intake 2 L per day, and also, we will add Lasix and monitor. 3. Morbid obesity. 4. Hypertension. 5. Anemia. 6. Overall renal function is stable. Urine output is improving. We will monitor. Job ID: [id number]
--- NOTE | 2019-05-18 18:30 | PDOC.HOSPP ---
- Subjective Subjective: Patient seen and examined for Resp failure and other issues. No CP/SOB. No new complaints. No overnight events - Objective Vital Signs & Weight: Vital Signs (12 hours) Temp Pulse Pulse Resp BP BP BP 05/18/19 15:24 97.6 F 05/18/19 14:45 05/18/19 14:43 88 18 05/18/19 11:13 05/18/19 11:11 94 21 H 05/18/19 10:41 98.5 F 05/18/19 10:02 83 106/63 05/18/19 08:44 105 H 137/73 123/63 05/18/19 08:00 05/18/19 07:15 97.4 F L 05/18/19 06:44 83 24 H Pulse Ox 05/18/19 15:24 05/18/19 14:45 91 L 05/18/19 14:43 91 L 05/18/19 11:13 90 L 05/18/19 11:11 90 L 05/18/19 10:41 05/18/19 10:02 05/18/19 08:44 05/18/19 08:00 89 L 05/18/19 07:15 05/18/19 06:44 93 L Weight Admit Weight 488 lb 9.6 oz Weight 410 lb 3.2 oz Most Recent Monitor Data Heart Rate from ECG 88 NIBP 105/51 NIBP BP-Mean 69 Respiration from ECG 20 SpO2 92 I&O: 05/17/19 05/18/19 05/19/19 06:59 06:59 06:59 Intake Total 1520 1510 890 Output Total 3950 4650 1400 Balance -4380 -3140 -510 Result Diagrams: 05/18/19 04:20 05/19/19 04:44 EKG Reviewed by me: Yes (Tele SR) ROS - Review of Systems All systems: All other ROS were reviewed and found negative. Constitutional: denies: fever, chills, sweats, weakness, malaise, other Respiratory: denies: cough, dry, shortness of breath, hemoptysis, SOB with excertion, pleuritic pain, sputum, wheezing, other Cardiovascular: denies: chest pain, palpitations, orthopnea, paroxysmal noc. dyspnea, edema, light headedness, other - Medication Medications: Active Medications Generic Name Dose Route Start Last Admin Trade Name Freq PRN Reason Stop Dose Admin Acetaminophen 650 mg 05/03/19 13:26 05/13/19 21:42 Tylenol Elixir PO 650 mg Q4H PRN Administration Headache/Fever or Pain 1-3 Albuterol/Ipratropium 3 ml 04/25/19 02:30 05/18/19 14:43 Duoneb NEB 3 ml [id number] RAIN Administration Artificial Tears 0 drop 05/05/19 05:40 05/05/19 05:52 Liquitears 15ml Bottle EA EYE 1 drop PRN PRN Administration Dry Eyes Digoxin 0.25 mg 05/16/19 09:00 05/18/19 10:02 Lanoxin PO 0.25 mg QAM RAIN Administration Diltiazem HCl 120 mg 05/18/19 09:00 05/18/19 10:02 Cardizem Cd PO 120 mg DAILY RAIN Administration Docusate Sodium 100 mg 05/07/19 21:00 05/18/19 10:02 Colace Liquid PO Not Given BID RAIN Dronedarone 400 mg 05/14/19 17:00 05/18/19 17:36 Multaq PO 400 mg BID-WM RAIN Administration Furosemide 40 mg 05/16/19 09:00 05/18/19 10:00 Lasix SLOW IVP 40 mg DAILY RAIN Administration Pantoprazole Sodium 40 mg 05/08/19 09:00 05/18/19 10:01 Protonix PO 40 mg DAILY RAIN Administration Polyethylene Glycol 17 gm 05/08/19 09:00 05/18/19 10:02 Miralax PO Not Given DAILY RAIN Sodium Bicarbonate 650 mg 04/29/19 03:10 05/06/19 22:55 Bicarbonate, Sodium PER TUBE 650 mg .PER PROTOCOL PRN Administration ENTERAL TUBE OCCLUSION Sodium Chloride 10 ml 04/28/19 21:00 05/18/19 10:03 Flush - Normal Saline IVF 10 ml Q12HR RAIN Administration Sodium Chloride 10 ml 04/28/19 09:44 05/07/19 09:30 Flush - Normal Saline IVF 10 ml PRN PRN Administration Saline Flush Tramadol HCl 50 mg 05/14/19 04:24 05/18/19 10:04 Ultram PO 50 mg Q6H PRN Administration Pain - Exam NAD Heart: RRR, no rubs Respiratory: CTAB, rhonchi Gastrointestinal: soft, normal bowel sounds Psychiatric: normal affect, A&O x 3 Hosp A/P (1) Acute on chronic respiratory failure with hypoxia and hypercapnia Code(s): J96.21 - ACUTE AND CHRONIC RESPIRATORY FAILURE WITH HYPOXIA; J96.22 - ACUTE AND CHRONIC RESPIRATORY FAILURE WITH HYPERCAPNIA (2) HTN (hypertension) Code(s): I10 - ESSENTIAL (PRIMARY) HYPERTENSION Qualifiers: (3) Morbid obesity with BMI of 50.0-59.9, adult Code(s): E66.01 - MORBID (SEVERE) OBESITY DUE TO EXCESS CALORIES; Z68.43 - BODY MASS INDEX (BMI) 50-59.9, ADULT (4) Acute on chronic diastolic ACC/AHA stage C congestive heart failure Code(s): I50.33 - ACUTE ON CHRONIC DIASTOLIC (CONGESTIVE) HEART FAILURE (5) Atrial flutter Code(s): I48.92 - UNSPECIFIED ATRIAL FLUTTER (6) Hyponatremia Code(s): E87.1 - HYPO-OSMOLALITY AND HYPONATREMIA (7) Acute renal failure Status: Acute - Plan PT/OT DC Dialysis catheter Cont supportive care Wean O2 Cont Multaq/Digoxin Cont other meds as below
[2019-05-19 04:59] LABS: Prothrombin Time 31.2 SEC (12.0-14.7)
[2019-05-19 05:11] LABS: Anion Gap 12 mmol/L (10-20); BUN (Urea Nitrogen) 11 mg/dL (8.9-20.6); Calc. Creatinine Clearance 273 mL/min (70-130); Calcium 8.9 mg/dL (7.8-10.44); Carbon Dioxide 35 mmol/L (22-29); Chloride 94 mmol/L (98-107); Estimated GFR-MDRD Greater than 90; Glucose 88 mg/dL (70-105); Sodium 137 mmol/L (136-145)
[2019-05-19] MEDS: Digoxin 0.25 MG TAB PO SCH (08:51)
[2019-05-19] MEDS: Dronedarone HCl 400 MG TAB PO SCH ×2 (08:52→17:42)
[2019-05-19] MEDS: Polyethylene Glycol 3350 17 GM Packet PO SCH (08:54)
[2019-05-19] MEDS: Docusate Sodium 100 MG/10 ML UDCUP PO SCH ×2 (08:54→21:49)
--- NOTE | 2019-05-19 09:33 | PRG ---
DATE OF SERVICE: 05/19/2019 SUBJECTIVE: This morning, he is awake, alert, and responsive. OBJECTIVE: VITAL SIGNS: Still hypoxic on high-flow 95%, temperature 98, pulse 87, blood pressure 116/53. CHEST: Decreased breath sounds. No wheezing. CARDIAC: Normal S1, S2. No gallops. ABDOMEN: Soft without masses. LABORATORY DATA: Creatinine is normal. Bicarb is 35. His renal functions are normal. His LO echocardiogram shows underlying preserved LV systolic function. No need to leave him on the diuretics. He has right-sided failure. He has metabolic alkalosis. IMPRESSION: 1. Morbid obesity. 2. Chronic obstructive pulmonary disease. 3. Respiratory failure. 4. Severe deconditioning. 5. Sleep apnea. 6. Supraventricular tachycardia. PLAN: Awaiting placement, supportive care, physical therapy. Job ID: [id number]
[2019-05-19] MEDS: traMADol HCl 50 MG TAB PO PRN ×2 (12:42→21:48)
--- NOTE | 2019-05-19 22:44 | PDOC.HOSPP ---
- Subjective Subjective: Patient seen and examined for Resp failure. On high flow O2. No new complaints. No overnight events - Objective Vital Signs & Weight: Vital Signs (12 hours) Temp Pulse Resp Pulse Ox 05/19/19 22:04 88 16 86 L 05/19/19 19:30 98.2 F 05/19/19 18:26 93 14 88 L 05/19/19 15:29 97.9 F 05/19/19 15:00 88 L 05/19/19 14:57 98 18 90 L 05/19/19 11:30 88 L 05/19/19 11:00 89 16 89 L Weight Admit Weight 488 lb 9.6 oz Weight 398 lb 12.8 oz Most Recent Monitor Data Heart Rate from ECG 95 NIBP 111/54 NIBP BP-Mean 73 Respiration from ECG 25 SpO2 90 I&O: 05/18/19 05/19/19 05/20/19 06:59 06:59 06:59 Intake Total 1510 1490 860 Output Total 4650 1900 1250 Balance -3140 -410 -390 Result Diagrams: 05/18/19 04:20 05/19/19 04:44 EKG Reviewed by me: Yes (Tele SR) ROS - Review of Systems All systems: All other ROS were reviewed and found negative. Respiratory: reports: shortness of breath, SOB with excertion. denies: cough, dry, hemoptysis, pleuritic pain, sputum, wheezing, other Cardiovascular: denies: chest pain, palpitations, orthopnea, paroxysmal noc. dyspnea, edema, light headedness, other Gastrointestinal: denies: nausea, vomitting, abdominal pain, diarrhea, constipation, melena, hematochezia, other - Medication Medications: Active Medications Generic Name Dose Route Start Last Admin Trade Name Freq PRN Reason Stop Dose Admin Acetaminophen 650 mg 05/03/19 13:26 05/13/19 21:42 Tylenol Elixir PO 650 mg Q4H PRN Administration Headache/Fever or Pain 1-3 Al Hydroxide/Mg Hydroxide 30 ml 05/07/19 13:34 05/19/19 21:48 Maalox PO 30 ml Q4H PRN Administration Heartburn or Indigestion Albuterol/Ipratropium 3 ml 04/25/19 02:30 05/19/19 22:04 Duoneb NEB 3 ml [id number] RAIN Administration Artificial Tears 0 drop 05/05/19 05:40 05/05/19 05:52 Liquitears 15ml Bottle EA EYE 1 drop PRN PRN Administration Dry Eyes Digoxin 0.25 mg 05/16/19 09:00 05/19/19 08:51 Lanoxin PO 0.25 mg QAM RAIN Administration Diltiazem HCl 120 mg 05/18/19 09:00 05/19/19 08:54 Cardizem Cd PO 120 mg DAILY RAIN Administration Docusate Sodium 100 mg 05/07/19 21:00 05/19/19 21:49 Colace Liquid PO Not Given BID RAIN Dronedarone 400 mg 05/14/19 17:00 05/19/19 17:42 Multaq PO 400 mg BID-WM RAIN Administration Pantoprazole Sodium 40 mg 05/08/19 09:00 05/19/19 08:54 Protonix PO 40 mg DAILY RAIN Administration Polyethylene Glycol 17 gm 05/08/19 09:00 05/19/19 08:54 Miralax PO Not Given DAILY RAIN Sodium Bicarbonate 650 mg 04/29/19 03:10 05/06/19 22:55 Bicarbonate, Sodium PER TUBE 650 mg .PER PROTOCOL PRN Administration ENTERAL TUBE OCCLUSION Sodium Chloride 10 ml 04/28/19 21:00 05/19/19 21:49 Flush - Normal Saline IVF 10 ml Q12HR RAIN Administration Sodium Chloride 10 ml 04/28/19 09:44 05/07/19 09:30 Flush - Normal Saline IVF 10 ml PRN PRN Administration Saline Flush Tramadol HCl 50 mg 05/14/19 04:24 05/19/19 21:48 Ultram PO 50 mg Q6H PRN Administration Pain - Exam NAD (on high flow O2) Heart: RRR, no rubs Respiratory: CTAB, no rales Gastrointestinal: soft, non-tender, normal bowel sounds Extremities: 2+ LE edema Hosp A/P (1) Acute on chronic respiratory failure with hypoxia and hypercapnia Code(s): J96.21 - ACUTE AND CHRONIC RESPIRATORY FAILURE WITH HYPOXIA; J96.22 - ACUTE AND CHRONIC RESPIRATORY FAILURE WITH HYPERCAPNIA (2) HTN (hypertension) Code(s): I10 - ESSENTIAL (PRIMARY) HYPERTENSION Qualifiers: (3) Morbid obesity with BMI of 50.0-59.9, adult Code(s): E66.01 - MORBID (SEVERE) OBESITY DUE TO EXCESS CALORIES; Z68.43 - BODY MASS INDEX (BMI) 50-59.9, ADULT (4) Acute on chronic diastolic ACC/AHA stage C congestive heart failure Code(s): I50.33 - ACUTE ON CHRONIC DIASTOLIC (CONGESTIVE) HEART FAILURE (5) Atrial flutter Code(s): I48.92 - UNSPECIFIED ATRIAL FLUTTER (6) Hyponatremia Code(s): E87.1 - HYPO-OSMOLALITY AND HYPONATREMIA (7) Acute renal failure Status: Acute - Plan Cont supportive care Wean O2 Cont Multaq/Digoxin and other meds as below Await placement
[2019-05-20 06:32] LABS: INR-International Normal Ratio 2.5; Prothrombin Time 26.7 SEC (12.0-14.7)
--- NOTE | 2019-05-20 09:01 | PRG ---
DATE OF SERVICE: 05/20/2019 SUBJECTIVE: This morning, he is awake, alert, and responsive. OBJECTIVE: VITAL SIGNS: His saturations 93%, temperature 98, pulse 76, respiratory rate 17, blood pressure 125/65. CHEST: No wheezing, crackles. CARDIAC: Normal S1, S2. No gallops. ABDOMEN: No masses. IMPRESSION: 1. Respiratory failure, morbid obesity, sleep apnea. 2. Renal failure, resolved with abnormal chest x-ray. Schedule neb treatment. PT, supportive care. Try and get a baseline chest x- ray today. start low dose prednisone Job ID: [id number] [facility]
--- NOTE | 2019-05-20 09:11 | RAD ---
XR Chest 1 View Portable HISTORY: CHF COMPARISON: 05/07/2019 FINDINGS: A right-sided dialysis catheter and left-sided central line remain in place. The heart size is stable. Tracheal narrowing is again seen. There is pulmonary vascular congestion. No pneumothoraces or large effusions are seen. Small effusions may be present. A focal masslike density in the right lung is likely loculated fluid in the fissure. This was not seen on the previous exam
[2019-05-20] MEDS: Digoxin 0.25 MG TAB PO SCH (10:05)
[2019-05-20] MEDS: Dronedarone HCl 400 MG TAB PO SCH ×2 (10:05→16:10)
[2019-05-20] MEDS: traMADol HCl 50 MG TAB PO PRN ×2 (10:06→22:49)
[2019-05-20] MEDS: Docusate Sodium 100 MG/10 ML UDCUP PO SCH ×2 (10:08→22:48)
[2019-05-20] MEDS: Polyethylene Glycol 3350 17 GM Packet PO SCH (10:08)
--- NOTE | 2019-05-20 10:28 | PDOC.HOSPP ---
- Subjective Subjective: Patient seen and examined. pt still requiring high flow oxygen, No overnight events - Objective Vital Signs & Weight: Vital Signs (12 hours) Temp Pulse Resp BP Pulse Ox 05/20/19 10:06 87 108/60 05/20/19 10:05 92 05/20/19 07:21 90 L 05/20/19 07:18 98.7 F 05/20/19 07:15 76 17 90 L 05/20/19 04:18 98.8 F 05/20/19 02:24 87 20 91 L 05/19/19 23:58 97.9 F Weight Admit Weight 488 lb 9.6 oz Weight 402 lb 3.2 oz Most Recent Monitor Data Heart Rate from ECG 73 NIBP 125/64 NIBP BP-Mean 84 Respiration from ECG 19 SpO2 90 I&O: 05/19/19 05/20/19 05/21/19 06:59 06:59 06:59 Intake Total 1490 1460 Output Total 1900 1850 Balance -410 -390 Result Diagrams: 05/18/19 04:20 05/19/19 04:44 EKG Reviewed by me: Yes (nsr) ROS - Review of Systems All systems: All other ROS were reviewed and found negative. Constitutional: reports: weakness. denies: fever, chills, sweats, malaise, other Eyes: denies: pain, vision change, conjunctivae inflammation, eyelid inflammation, redness, other ENT: denies: ear pain, ear discharge, nose pain, nose discharge, nose congestion , mouth pain, mouth swelling, throat pain, throat swelling, other Respiratory: reports: SOB with excertion. denies: cough, dry, shortness of breath, hemoptysis, pleuritic pain, sputum, wheezing, other Cardiovascular: denies: chest pain, palpitations, orthopnea, paroxysmal noc. dyspnea, edema, light headedness, other Gastrointestinal: denies: nausea, vomitting, abdominal pain, diarrhea, constipation, melena, hematochezia, other Genitourinary: denies: dysuria, frequency, incontinence, hematuria, retention, other Musculoskeletal: denies: neck pain, shoulder pain, arm pain, back pain, hand pain, leg pain, foot pain, other - Medication Medications: Active Medications Generic Name Dose Route Start Last Admin Trade Name Freq PRN Reason Stop Dose Admin Acetaminophen 650 mg 05/03/19 13:26 05/13/19 21:42 Tylenol Elixir PO 650 mg Q4H PRN Administration Headache/Fever or Pain 1-3 Al Hydroxide/Mg Hydroxide 30 ml 05/07/19 13:34 05/19/19 21:48 Maalox PO 30 ml Q4H PRN Administration Heartburn or Indigestion Albuterol/Ipratropium 3 ml 04/25/19 02:30 05/20/19 07:15 Duoneb NEB 3 ml [id number] RAIN Administration Artificial Tears 0 drop 05/05/19 05:40 05/05/19 05:52 Liquitears 15ml Bottle EA EYE 1 drop PRN PRN Administration Dry Eyes Digoxin 0.25 mg 05/16/19 09:00 05/20/19 10:05 Lanoxin PO 0.25 mg QAM RAIN Administration Diltiazem HCl 120 mg 05/18/19 09:00 05/20/19 10:06 Cardizem Cd PO 120 mg DAILY RAIN Administration Docusate Sodium 100 mg 05/07/19 21:00 05/20/19 10:08 Colace Liquid PO Not Given BID RAIN Dronedarone 400 mg 05/14/19 17:00 05/20/19 10:05 Multaq PO 400 mg BID-WM RAIN Administration Pantoprazole Sodium 40 mg 05/08/19 09:00 05/20/19 10:08 Protonix PO 40 mg DAILY RAIN Administration Polyethylene Glycol 17 gm 05/08/19 09:00 05/20/19 10:08 Miralax PO Not Given DAILY RAIN Sodium Bicarbonate 650 mg 04/29/19 03:10 05/06/19 22:55 Bicarbonate, Sodium PER TUBE 650 mg .PER PROTOCOL PRN Administration ENTERAL TUBE OCCLUSION Sodium Chloride 10 ml 04/28/19 21:00 05/20/19 10:09 Flush - Normal Saline IVF 10 ml Q12HR RAIN Administration Sodium Chloride 10 ml 04/28/19 09:44 05/07/19 09:30 Flush - Normal Saline IVF 10 ml PRN PRN Administration Saline Flush Tramadol HCl 50 mg 05/14/19 04:24 05/20/19 10:06 Ultram PO 50 mg Q6H PRN Administration Pain - Exam NAD, awake alert Eye: PERRL, anicteric sclera ENT: normocephalic atraumatic, no oropharyngeal lesions Neck: supple, symmetric, no JVD Heart: RRR, no murmur, no gallops, no rubs Respiratory: CTAB, no wheezes, no rales Gastrointestinal: soft, non-tender, non-distended, normal bowel sounds Extremities: no cyanosis, no clubbing (chronic lymphoedema) Skin: normal turgor, no lesions Neurological: CN's grossly intact, normal sensation to touch, no focal deficits Musculoskeletal: normal tone, normal strength Psychiatric: normal affect, normal behavior Hosp A/P (1) Acute on chronic diastolic ACC/AHA stage C congestive heart failure Code(s): I50.33 - ACUTE ON CHRONIC DIASTOLIC (CONGESTIVE) HEART FAILURE Status : Acute (2) Acute on chronic respiratory failure with hypoxia and hypercapnia Code(s): J96.21 - ACUTE AND CHRONIC RESPIRATORY FAILURE WITH HYPOXIA; J96.22 - ACUTE AND CHRONIC RESPIRATORY FAILURE WITH HYPERCAPNIA Status: Acute (3) Atrial flutter Code(s): I48.92 - UNSPECIFIED ATRIAL FLUTTER Status: Acute (4) End stage renal disease on dialysis Code(s): N18.6 - END STAGE RENAL DISEASE; Z99.2 - DEPENDENCE ON RENAL DIALYSIS Status: Deleted (5) Volume overload Code(s): E87.70 - FLUID OVERLOAD, UNSPECIFIED Status: Acute (6) Alcohol abuse Code(s): F10.10 - ALCOHOL ABUSE, UNCOMPLICATED Status: Chronic (7) HTN (hypertension) Code(s): I10 - ESSENTIAL (PRIMARY) HYPERTENSION Status: Chronic Qualifiers: (8) Lymphedema of both lower extremities Code(s): I89.0 - LYMPHEDEMA, NOT ELSEWHERE CLASSIFIED Status: Chronic (9) Macrocytosis Code(s): D75.89 - OTHER SPECIFIED DISEASES OF BLOOD AND BLOOD-FORMING ORGANS Status: Chronic (10) Morbid obesity with BMI of 50.0-59.9, adult Code(s): E66.01 - MORBID (SEVERE) OBESITY DUE TO EXCESS CALORIES; Z68.43 - BODY MASS INDEX (BMI) 50-59.9, ADULT Status: Chronic (11) Pickwickian syndrome Code(s): E66.2 - MORBID (SEVERE) OBESITY WITH ALVEOLAR HYPOVENTILATION Status : Chronic (12) Tobacco abuse Code(s): Z72.0 - TOBACCO USE Status: Chronic - Plan old records reviewed/req, PT/OT, long term care social worker, respiratory therapy once his oxygen requirement reduces to nasal cannula, at that point we can consider his discharge planning medication reviewed as below symptomatic treatment pulmonary following monitor in [facility]
[2019-05-20] MEDS: Warfarin Sodium 2.5 MG TAB PO SCH (16:10)
[2019-05-20] MEDS ORDERED: Warfarin Sodium 2.5 MG TAB PO SCH (17:00)
[2019-05-21 07:48] LABS: INR-International Normal Ratio 2.4; Prothrombin Time 26.4 SEC (12.0-14.7)
--- NOTE | 2019-05-21 09:22 | PRG ---
DATE OF SERVICE: 05/21/2019 SUBJECTIVE: Nikita Morgan, this morning, is awake, alert, and responsive. He is somewhat better. OBJECTIVE: VITAL SIGNS: His saturations are 95% on high-flow, temperature 98, blood pressure 121/61, pulse 80, and respirations 18. CHEST: No wheezing or crackles. CARDIAC: Normal S1 and S2. No gallops. ABDOMEN: No masses. IMAGING DATA: X-ray yesterday shows extensive bilateral interstitial alveolar infiltrates. IMPRESSION: 1. Renal failure, resolved. 2. Probably organizing pneumonia. 3. Morbid obesity. 4. Sleep apnea. PLAN: Continue steroids, PT, supportive care. Hopefully, we can start weaning his high-flow O2 for discharge purposes. We will follow. Job ID: [id number]
[2019-05-21] MEDS: Furosemide 40 MG TAB PO SCH (09:26)
[2019-05-21] MEDS: predniSONE 20 MG TAB PO SCH (09:26)
[2019-05-21] MEDS: Digoxin 0.25 MG TAB PO SCH (09:26)
[2019-05-21] MEDS: Dronedarone HCl 400 MG TAB PO SCH ×2 (09:26→16:19)
[2019-05-21] MEDS: Polyethylene Glycol 3350 17 GM Packet PO SCH (09:30)
[2019-05-21] MEDS: Docusate Sodium 100 MG/10 ML UDCUP PO SCH ×2 (09:30→21:20)
--- NOTE | 2019-05-21 15:02 | PDOC.HOSPP ---
- Subjective Subjective: 48 y/o morbidly obese male with chronic bilateral lower extremity lymphedema admitted with acute mental status change. Also found to have acute on chronic respiratory failure with hypercarbia and hypoxia as well as hyponatremia. Treated with non invasive respiratory support qith improvement. No new problem. Still on high flow oxygen during the day and BIPAP at nights. - Objective Vital Signs & Weight: Vital Signs (12 hours) Temp Pulse Resp BP Pulse Ox 05/21/19 14:41 86 20 05/21/19 11:53 98.6 F 05/21/19 10:53 91 20 05/21/19 09:26 90 137/66 05/21/19 08:00 98.3 F 92 L 05/21/19 07:51 86 20 05/21/19 03:39 98.9 F Weight Admit Weight 488 lb 9.6 oz Weight 396 lb 12.8 oz Most Recent Monitor Data Heart Rate from ECG 90 NIBP 149/77 NIBP BP-Mean 101 Respiration from ECG 21 SpO2 92 I&O: 05/20/19 05/21/19 05/22/19 06:59 06:59 06:59 Intake Total 1460 980 Output Total 1850 1640 250 Balance -390 -660 -250 Result Diagrams: 05/18/19 04:20 05/19/19 04:44 ROS - Review of Systems All systems: All other ROS were reviewed and found negative. - Medication Medications: Active Medications Generic Name Dose Route Start Last Admin Trade Name Freq PRN Reason Stop Dose Admin Acetaminophen 650 mg 05/03/19 13:26 05/13/19 21:42 Tylenol Elixir PO 650 mg Q4H PRN Administration Headache/Fever or Pain 1-3 Al Hydroxide/Mg Hydroxide 30 ml 05/07/19 13:34 05/19/19 21:48 Maalox PO 30 ml Q4H PRN Administration Heartburn or Indigestion Albuterol/Ipratropium 3 ml 04/25/19 02:30 05/21/19 14:41 Duoneb NEB 3 ml [id number] RAIN Administration Artificial Tears 0 drop 05/05/19 05:40 05/05/19 05:52 Liquitears 15ml Bottle EA EYE 1 drop PRN PRN Administration Dry Eyes Digoxin 0.25 mg 05/16/19 09:00 05/21/19 09:26 Lanoxin PO 0.25 mg QAM RAIN Administration Diltiazem HCl 120 mg 05/18/19 09:00 05/21/19 09:26 Cardizem Cd PO 120 mg DAILY RAIN Administration Docusate Sodium 100 mg 05/07/19 21:00 05/21/19 09:30 Colace Liquid PO Not Given BID RAIN Dronedarone 400 mg 05/14/19 17:00 05/21/19 09:26 Multaq PO 400 mg BID-WM RAIN Administration Furosemide 40 mg 05/21/19 07:30 05/21/19 09:26 Lasix PO 40 mg DAILY-AC RAIN Administration Pantoprazole Sodium 40 mg 05/08/19 09:00 05/21/19 09:26 Protonix PO 40 mg DAILY RAIN Administration Polyethylene Glycol 17 gm 05/08/19 09:00 05/21/19 09:30 Miralax PO Not Given DAILY RAIN Prednisone 20 mg 05/21/19 08:00 05/21/19 09:26 Prednisone PO 05/28/19 08:01 20 mg QAM-WM RAIN Administration Sodium Bicarbonate 650 mg 04/29/19 03:10 05/06/19 22:55 Bicarbonate, Sodium PER TUBE 650 mg .PER PROTOCOL PRN Administration ENTERAL TUBE OCCLUSION Sodium Chloride 10 ml 04/28/19 21:00 05/21/19 09:27 Flush - Normal Saline IVF 10 ml Q12HR RAIN Administration Sodium Chloride 10 ml 04/28/19 09:44 05/07/19 09:30 Flush - Normal Saline IVF 10 ml PRN PRN Administration Saline Flush Tramadol HCl 50 mg 05/14/19 04:24 05/20/19 22:49 Ultram PO 50 mg Q6H PRN Administration Pain Warfarin Sodium 2.5 mg 05/20/19 17:00 05/20/19 16:10 Coumadin PO 2.5 mg 1700 RAIN Administration - Exam awake alert (morbidly obese) Eye: PERRL, anicteric sclera ENT: normocephalic atraumatic Neck: symmetric (Very shorth and thick neck neck noted . Left IJ TLC noted) Respiratory: no wheezes, no ronchi (Fair air entry bilaterally) Gastrointestinal: soft, non-tender, non-distended, normal bowel sounds ( Morbidly obese) Extremities: no cyanosis (large lower extremities with lymphedematous changes. No obvious edema appreciated) Neurological: CN's grossly intact, no focal deficits Hosp A/P (1) Acute on chronic respiratory failure with hypoxia and hypercapnia Code(s): J96.21 - ACUTE AND CHRONIC RESPIRATORY FAILURE WITH HYPOXIA; J96.22 - ACUTE AND CHRONIC RESPIRATORY FAILURE WITH HYPERCAPNIA Status: Acute (2) Acute on chronic diastolic ACC/AHA stage C congestive heart failure Code(s): I50.33 - ACUTE ON CHRONIC DIASTOLIC (CONGESTIVE) HEART FAILURE Status : Acute (3) Acute renal failure Status: Acute (4) Hyponatremia Code(s): E87.1 - HYPO-OSMOLALITY AND HYPONATREMIA Status: Acute (5) Atrial flutter Code(s): I48.92 - UNSPECIFIED ATRIAL FLUTTER Status: Acute (6) Volume overload Code(s): E87.70 - FLUID OVERLOAD, UNSPECIFIED Status: Acute (7) HTN (hypertension) Code(s): I10 - ESSENTIAL (PRIMARY) HYPERTENSION Status: Chronic Qualifiers: (8) Lymphedema of both lower extremities Code(s): I89.0 - LYMPHEDEMA, NOT ELSEWHERE CLASSIFIED Status: Chronic (9) Morbid obesity with BMI of 50.0-59.9, adult Code(s): E66.01 - MORBID (SEVERE) OBESITY DUE TO EXCESS CALORIES; Z68.43 - BODY MASS INDEX (BMI) 50-59.9, ADULT Status: Chronic (10) Pickwickian syndrome Code(s): E66.2 - MORBID (SEVERE) OBESITY WITH ALVEOLAR HYPOVENTILATION Status : Chronic - Plan Continue current treatments. Respiratory support weaning as per pulmonary.
[2019-05-21] MEDS: Warfarin Sodium 2.5 MG TAB PO SCH (16:19)
[2019-05-21] MEDS: traMADol HCl 50 MG TAB PO PRN (21:24)
[2019-05-22 05:13] LABS: #Eosinphils 0.1 thou/uL (0.0-0.7); #Lymphocytes 1.8 thou/uL (1.20-3.40); #Monocytes 0.6 thou/uL (0.11-0.59); #Neutrophils 2.6 thou/uL (1.40-6.50); %Basophils 0.8 % (0.0-1.0); %Eosinophils 1.3 % (0.0-10.0); %Lymphocytes 34.5 % (21.0-51.0); %Monocytes 12.5 % (0.0-10.0); %Neutrophils 50.8 % (42.0-75.0); Hemoglobin 11.8 g/dL (14.0-18.0); Mean Corpuscular HGB CONC 33.3 g/dL (32.0-36.0); Mean Corpuscular Hemoglobin 31.6 pg (27.0-31.0); Mean Platelet Volume 8.4 fL (7.4-10.4); Platelet Count 282 thou/uL (130-400); RBC Distribution Width 14.1 % (11.5-14.5); Red Blood Cell (RBC) Count 3.73 mill/uL (4.70-6.10); White Blood Cell (WBC) Count 5.1 thou/uL (4.8-10.8)
[2019-05-22 05:18] LABS: INR-International Normal Ratio 2.6; Prothrombin Time 27.5 SEC (12.0-14.7)
[2019-05-22 05:29] LABS: Anion Gap 13 mmol/L (10-20); BUN (Urea Nitrogen) 9 mg/dL (8.9-20.6); BUN/Creatinine Ratio 10.59; Calc. Creatinine Clearance 274 mL/min (70-130); Calcium 8.7 mg/dL (7.8-10.44); Carbon Dioxide 35 mmol/L (22-29); Chloride 93 mmol/L (98-107); Estimated GFR-MDRD Greater than 90; Glucose 93 mg/dL (70-105); Potassium 3.8 mmol/L (3.5-5.1); Sodium 137 mmol/L (136-145)
[2019-05-22 05:32] LABS: Magnesium 0.9 mg/dL (1.6-2.6)
[2019-05-22] MEDS ORDERED: Magnesium 2 GM/50 ML 2 GM in Premix Bag 1 BAG IVPB SCH (06:00)
[2019-05-22] MEDS: Furosemide 40 MG TAB PO SCH (06:34)
[2019-05-22] MEDS: Digoxin 0.25 MG TAB PO SCH (08:59)
[2019-05-22] MEDS: Docusate Sodium 100 MG/10 ML UDCUP PO SCH ×2 (09:00→20:40)
[2019-05-22] MEDS: Dronedarone HCl 400 MG TAB PO SCH ×2 (09:00→17:55)
[2019-05-22] MEDS: Polyethylene Glycol 3350 17 GM Packet PO SCH (09:00)
[2019-05-22] MEDS: predniSONE 20 MG TAB PO SCH (09:00)
--- NOTE | 2019-05-22 09:28 | PRG ---
DATE OF SERVICE: 05/22/2019 SUBJECTIVE: This morning, he is better. He is less short of breath. OBJECTIVE: VITAL SIGNS: His saturations are still 95% on 30 high-flow, pulse 85, temperature 98, blood pressure 130/72. CHEST: Crackles. CARDIAC: Normal S1 and S2. No gallops. ABDOMEN: No masses. LABORATORY DATA: Lytes are normal. CBC is unremarkable. IMPRESSION: Respiratory failure, hypoxemia, abnormal x-ray, congestive heart failure, interstitial lung disease, probably some acute respiratory distress syndrome. PLAN: Low-dose steroids initiated, p.o. Lasix. Supportive care. Once his oxygenation improves, he can probably be transferred to rehab. Job ID: [id number]
[2019-05-22] MEDS: Warfarin Sodium 2.5 MG TAB PO SCH (17:55)
--- NOTE | 2019-05-22 18:32 | PDOC.HOSPP ---
- Subjective Subjective: 48 y/o morbidly obese male with chronic bilateral lower extremity lymphedema admitted with acute mental status change. Also found to have acute on chronic respiratory failure with hypercarbia and hypoxia as well as hyponatremia. Treated with non invasive respiratory support with improvement. No new problem. Now off high flow oxygen and on nasal cannula oxygen. On BIPAP at nights. - Objective Vital Signs & Weight: Vital Signs (12 hours) Temp Pulse Pulse Pulse Resp BP BP 05/22/19 15:08 97.7 F 05/22/19 14:05 80 21 H 05/22/19 12:00 05/22/19 11:33 98.2 F 05/22/19 10:49 83 78 126/64 05/22/19 10:21 05/22/19 10:20 87 16 05/22/19 09:00 85 129/68 05/22/19 08:59 88 05/22/19 08:13 05/22/19 08:11 85 16 05/22/19 08:00 98 F BP Pulse Ox Pulse Ox Pulse Ox Pulse Ox 05/22/19 15:08 05/22/19 14:05 89 L 05/22/19 12:00 91 L 05/22/19 11:33 05/22/19 10:49 121/57 L 89 L 83 L 91 L 05/22/19 10:21 91 L 05/22/19 10:20 91 L 05/22/19 09:00 05/22/19 08:59 05/22/19 08:13 92 L 05/22/19 08:11 92 L 05/22/19 08:00 91 L Weight Admit Weight 488 lb 9.6 oz Weight 384 lb 9.6 oz Most Recent Monitor Data Heart Rate from ECG 85 NIBP 123/63 NIBP BP-Mean 83 Respiration from ECG 22 SpO2 90 I&O: 05/21/19 05/22/19 05/23/19 06:59 06:59 06:59 Intake Total 980 1150 1140 Output Total 6131 3097 4764 Balance -771 -3526 -3487 Result Diagrams: 05/22/19 04:51 05/22/19 04:51 ROS - Review of Systems All systems: All other ROS were reviewed and found negative. - Medication Medications: Active Medications Generic Name Dose Route Start Last Admin Trade Name Freq PRN Reason Stop Dose Admin Acetaminophen 650 mg 05/03/19 13:26 05/13/19 21:42 Tylenol Elixir PO 650 mg Q4H PRN Administration Headache/Fever or Pain 1-3 Al Hydroxide/Mg Hydroxide 30 ml 05/07/19 13:34 05/19/19 21:48 Maalox PO 30 ml Q4H PRN Administration Heartburn or Indigestion Albuterol/Ipratropium 3 ml 04/25/19 02:30 05/22/19 14:05 Duoneb NEB 3 ml [id number] RAIN Administration Artificial Tears 0 drop 05/05/19 05:40 05/05/19 05:52 Liquitears 15ml Bottle EA EYE 1 drop PRN PRN Administration Dry Eyes Digoxin 0.25 mg 05/16/19 09:00 05/22/19 08:59 Lanoxin PO 0.25 mg QAM RAIN Administration Diltiazem HCl 120 mg 05/18/19 09:00 05/22/19 09:00 Cardizem Cd PO 120 mg DAILY RAIN Administration Docusate Sodium 100 mg 05/07/19 21:00 05/22/19 09:00 Colace Liquid PO Not Given BID RAIN Dronedarone 400 mg 05/14/19 17:00 05/22/19 17:55 Multaq PO 400 mg BID-WM RAIN Administration Furosemide 40 mg 05/21/19 07:30 05/22/19 06:34 Lasix PO 40 mg DAILY-AC RAIN Administration Pantoprazole Sodium 40 mg 05/08/19 09:00 05/22/19 09:00 Protonix PO 40 mg DAILY RAIN Administration Polyethylene Glycol 17 gm 05/08/19 09:00 05/22/19 09:00 Miralax PO Not Given DAILY RAIN Prednisone 20 mg 05/21/19 08:00 05/22/19 09:00 Prednisone PO 05/28/19 08:01 20 mg QAM-WM RAIN Administration Sodium Bicarbonate 650 mg 04/29/19 03:10 05/06/19 22:55 Bicarbonate, Sodium PER TUBE 650 mg .PER PROTOCOL PRN Administration ENTERAL TUBE OCCLUSION Sodium Chloride 10 ml 04/28/19 21:00 05/22/19 09:01 Flush - Normal Saline IVF 10 ml Q12HR RAIN Administration Sodium Chloride 10 ml 04/28/19 09:44 05/07/19 09:30 Flush - Normal Saline IVF 10 ml PRN PRN Administration Saline Flush Tramadol HCl 50 mg 05/14/19 04:24 05/21/19 21:24 Ultram PO 50 mg Q6H PRN Administration Pain Warfarin Sodium 2.5 mg 05/20/19 17:00 05/22/19 17:55 Coumadin PO 2.5 mg 1700 RAIN Administration - Exam awake alert (morbidly obese) Eye: anicteric sclera ENT: normocephalic atraumatic Heart: RRR Respiratory: no wheezes, no rales (Fair air entry but decreased at the bases) Gastrointestinal: soft, non-tender, non-distended, normal bowel sounds Neurological: CN's grossly intact, no focal deficits Psychiatric: normal affect, A&O x 3 Hosp A/P (1) Acute on chronic respiratory failure with hypoxia and hypercapnia Code(s): J96.21 - ACUTE AND CHRONIC RESPIRATORY FAILURE WITH HYPOXIA; J96.22 - ACUTE AND CHRONIC RESPIRATORY FAILURE WITH HYPERCAPNIA Status: Acute (2) Acute on chronic diastolic ACC/AHA stage C congestive heart failure Code(s): I50.33 - ACUTE ON CHRONIC DIASTOLIC (CONGESTIVE) HEART FAILURE Status : Acute (3) Acute renal failure Status: Acute (4) Hyponatremia Code(s): E87.1 - HYPO-OSMOLALITY AND HYPONATREMIA Status: Acute (5) Atrial flutter Code(s): I48.92 - UNSPECIFIED ATRIAL FLUTTER Status: Acute (6) Volume overload Code(s): E87.70 - FLUID OVERLOAD, UNSPECIFIED Status: Acute (7) HTN (hypertension) Code(s): I10 - ESSENTIAL (PRIMARY) HYPERTENSION Status: Chronic Qualifiers: (8) Lymphedema of both lower extremities Code(s): I89.0 - LYMPHEDEMA, NOT ELSEWHERE CLASSIFIED Status: Chronic (9) Morbid obesity with BMI of 50.0-59.9, adult Code(s): E66.01 - MORBID (SEVERE) OBESITY DUE TO EXCESS CALORIES; Z68.43 - BODY MASS INDEX (BMI) 50-59.9, ADULT Status: Chronic (10) Pickwickian syndrome Code(s): E66.2 - MORBID (SEVERE) OBESITY WITH ALVEOLAR HYPOVENTILATION Status : Chronic - Plan Continue to wean oxygen as tolerated. Continue BIPAP at nights. Appreciate input from Cardiology/EPS and Pulm/critical care.
[2019-05-22] MEDS: traMADol HCl 50 MG TAB PO PRN (21:04)
[2019-05-23 05:21] LABS: INR-International Normal Ratio 2.9; Prothrombin Time 30.3 SEC (12.0-14.7)
[2019-05-23] MEDS: Dronedarone HCl 400 MG TAB PO SCH ×2 (08:07→16:55)
[2019-05-23] MEDS: Digoxin 0.25 MG TAB PO SCH (08:07)
[2019-05-23] MEDS: Furosemide 40 MG TAB PO SCH (08:08)
[2019-05-23] MEDS: predniSONE 20 MG TAB PO SCH (08:08)
[2019-05-23] MEDS: Polyethylene Glycol 3350 17 GM Packet PO SCH (08:10)
[2019-05-23] MEDS: Docusate Sodium 100 MG/10 ML UDCUP PO SCH ×2 (08:15→20:29)
--- NOTE | 2019-05-23 13:12 | PDOC.HOSPP ---
- Subjective Subjective: Patient seen and examined, no new issues. - Objective Vital Signs & Weight: Vital Signs (12 hours) Temp Pulse Resp Pulse Ox 05/23/19 11:37 98.2 F 05/23/19 10:40 92 25 H 92 L 05/23/19 08:13 84 16 90 L 05/23/19 08:07 80 05/23/19 08:06 80 05/23/19 08:00 98.0 F 90 L 05/23/19 07:34 98.0 F 05/23/19 03:50 96 05/23/19 03:34 98.2 F Weight Admit Weight 488 lb 9.6 oz Weight 378 lb 3.2 oz Most Recent Monitor Data Heart Rate from ECG 91 NIBP 121/65 NIBP BP-Mean 83 Respiration from ECG 27 SpO2 83 I&O: 05/22/19 05/23/19 05/24/19 06:59 06:59 06:59 Intake Total 1150 1650 Output Total 4000 3425 Balance -1645 -7149 Result Diagrams: 05/22/19 04:51 05/22/19 04:51 ROS - Review of Systems All systems: All other ROS were reviewed and found negative. - Medication Medications: Active Medications Generic Name Dose Route Start Last Admin Trade Name Freq PRN Reason Stop Dose Admin Acetaminophen 650 mg 05/03/19 13:26 05/13/19 21:42 Tylenol Elixir PO 650 mg Q4H PRN Administration Headache/Fever or Pain 1-3 Al Hydroxide/Mg Hydroxide 30 ml 05/07/19 13:34 05/19/19 21:48 Maalox PO 30 ml Q4H PRN Administration Heartburn or Indigestion Albuterol/Ipratropium 3 ml 04/25/19 02:30 05/23/19 10:40 Duoneb NEB 3 ml [id number] RAIN Administration Artificial Tears 0 drop 05/05/19 05:40 05/05/19 05:52 Liquitears 15ml Bottle EA EYE 1 drop PRN PRN Administration Dry Eyes Digoxin 0.25 mg 05/16/19 09:00 05/23/19 08:07 Lanoxin PO 0.25 mg QAM RAIN Administration Diltiazem HCl 120 mg 05/18/19 09:00 05/23/19 08:06 Cardizem Cd PO 120 mg DAILY RAIN Administration Docusate Sodium 100 mg 05/07/19 21:00 05/23/19 08:15 Colace Liquid PO Not Given BID RAIN Dronedarone 400 mg 05/14/19 17:00 05/23/19 08:07 Multaq PO 400 mg BID-WM RAIN Administration Furosemide 40 mg 05/21/19 07:30 05/23/19 08:08 Lasix PO 40 mg DAILY-AC RAIN Administration Pantoprazole Sodium 40 mg 05/08/19 09:00 05/23/19 08:07 Protonix PO 40 mg DAILY RAIN Administration Polyethylene Glycol 17 gm 05/08/19 09:00 05/23/19 08:10 Miralax PO 17 gm DAILY RAIN Administration Prednisone 20 mg 05/21/19 08:00 05/23/19 08:08 Prednisone PO 05/28/19 08:01 20 mg QAM-WM RAIN Administration Sodium Bicarbonate 650 mg 04/29/19 03:10 05/06/19 22:55 Bicarbonate, Sodium PER TUBE 650 mg .PER PROTOCOL PRN Administration ENTERAL TUBE OCCLUSION Sodium Chloride 10 ml 04/28/19 21:00 05/23/19 08:08 Flush - Normal Saline IVF 10 ml Q12HR RAIN Administration Sodium Chloride 10 ml 04/28/19 09:44 05/07/19 09:30 Flush - Normal Saline IVF 10 ml PRN PRN Administration Saline Flush Tramadol HCl 50 mg 05/14/19 04:24 05/22/19 21:04 Ultram PO 50 mg Q6H PRN Administration Pain Warfarin Sodium 2.5 mg 05/20/19 17:00 05/22/19 17:55 Coumadin PO 2.5 mg 1700 RAIN Administration - Exam NAD (obese), awake alert Eye: PERRL, anicteric sclera ENT: normocephalic atraumatic, no oropharyngeal lesions Neck: supple, symmetric, no JVD Heart: RRR, no murmur, no gallops Respiratory: CTAB, no wheezes, no rales Gastrointestinal: soft, non-tender, non-distended Extremities: no cyanosis, no clubbing Neurological: CN's grossly intact Hosp A/P (1) Acute on chronic diastolic ACC/AHA stage C congestive heart failure Code(s): I50.33 - ACUTE ON CHRONIC DIASTOLIC (CONGESTIVE) HEART FAILURE Status : Acute (2) Volume overload Code(s): E87.70 - FLUID OVERLOAD, UNSPECIFIED Status: Acute (3) HTN (hypertension) Code(s): I10 - ESSENTIAL (PRIMARY) HYPERTENSION Status: Chronic Qualifiers: (4) Morbid obesity with BMI of 50.0-59.9, adult Code(s): E66.01 - MORBID (SEVERE) OBESITY DUE TO EXCESS CALORIES; Z68.43 - BODY MASS INDEX (BMI) 50-59.9, ADULT Status: Chronic (5) Pickwickian syndrome Code(s): E66.2 - MORBID (SEVERE) OBESITY WITH ALVEOLAR HYPOVENTILATION Status : Chronic (6) Tobacco abuse Code(s): Z72.0 - TOBACCO USE Status: Chronic - Plan - cont current plan of care - pending placement once he's able to be weaned off oxygen - DC once conditions met - case and plan d/w patient at length, he understood and agreed with this plan.
[2019-05-23] MEDS: Warfarin Sodium 2.5 MG TAB PO SCH (16:56)
[2019-05-23] MEDS: traMADol HCl 50 MG TAB PO PRN (22:16)
[2019-05-24 07:49] LABS: INR-International Normal Ratio 3.2; Prothrombin Time 32.2 SEC (12.0-14.7)
[2019-05-24] MEDS: Dronedarone HCl 400 MG TAB PO SCH ×2 (09:25→15:26)
[2019-05-24] MEDS: predniSONE 20 MG TAB PO SCH (09:26)
[2019-05-24] MEDS: Furosemide 40 MG TAB PO SCH (09:26)
[2019-05-24] MEDS: Docusate Sodium 100 MG/10 ML UDCUP PO SCH ×2 (09:29→19:56)
[2019-05-24] MEDS: Polyethylene Glycol 3350 17 GM Packet PO SCH (09:29)
--- NOTE | 2019-05-24 12:37 | PDOC.HOSPP ---
- Subjective Subjective: Patient seen and examined no new issues. - Objective Vital Signs & Weight: Vital Signs (12 hours) Temp Pulse Pulse Pulse Resp BP BP 05/24/19 11:41 98.1 F 05/24/19 11:20 91 18 05/24/19 10:47 86 82 150/84 H 05/24/19 09:25 85 116/56 L 05/24/19 08:12 97.9 F 05/24/19 08:08 87 28 H 05/24/19 08:00 05/24/19 03:58 05/24/19 03:57 BP Pulse Ox Pulse Ox Pulse Ox Pulse Ox 05/24/19 11:41 05/24/19 11:20 92 L 05/24/19 10:47 136/72 86 L 89 L 91 L 05/24/19 09:25 05/24/19 08:12 05/24/19 08:08 94 L 05/24/19 08:00 93 L 05/24/19 03:58 91 L 05/24/19 03:57 91 L Weight Admit Weight 488 lb 9.6 oz Weight 376 lb 6.4 oz Most Recent Monitor Data Heart Rate from ECG 89 NIBP 116/56 NIBP BP-Mean 76 Respiration from ECG 21 SpO2 93 I&O: 05/23/19 05/24/19 05/25/19 06:59 06:59 06:59 Intake Total 1650 1070 Output Total 3425 4150 Balance -3893 -8929 Result Diagrams: 05/22/19 04:51 05/22/19 04:51 ROS - Review of Systems All systems: All other ROS were reviewed and found negative. - Medication Medications: Active Medications Generic Name Dose Route Start Last Admin Trade Name Freq PRN Reason Stop Dose Admin Acetaminophen 650 mg 05/03/19 13:26 05/13/19 21:42 Tylenol Elixir PO 650 mg Q4H PRN Administration Headache/Fever or Pain 1-3 Al Hydroxide/Mg Hydroxide 30 ml 05/07/19 13:34 05/19/19 21:48 Maalox PO 30 ml Q4H PRN Administration Heartburn or Indigestion Albuterol/Ipratropium 3 ml 04/25/19 02:30 05/24/19 11:20 Duoneb NEB 3 ml [id number] RAIN Administration Artificial Tears 0 drop 05/05/19 05:40 05/05/19 05:52 Liquitears 15ml Bottle EA EYE 1 drop PRN PRN Administration Dry Eyes Diltiazem HCl 120 mg 05/18/19 09:00 05/24/19 09:25 Cardizem Cd PO 120 mg DAILY RAIN Administration Docusate Sodium 100 mg 05/07/19 21:00 05/24/19 09:29 Colace Liquid PO Not Given BID RAIN Dronedarone 400 mg 05/14/19 17:00 05/24/19 09:25 Multaq PO 400 mg BID-WM RAIN Administration Furosemide 40 mg 05/21/19 07:30 05/24/19 09:26 Lasix PO 40 mg DAILY-AC RAIN Administration Pantoprazole Sodium 40 mg 05/08/19 09:00 05/24/19 09:26 Protonix PO 40 mg DAILY RAIN Administration Polyethylene Glycol 17 gm 05/08/19 09:00 05/24/19 09:29 Miralax PO Not Given DAILY RAIN Prednisone 20 mg 05/21/19 08:00 05/24/19 09:26 Prednisone PO 05/28/19 08:01 20 mg QAM-WM RAIN Administration Sodium Bicarbonate 650 mg 04/29/19 03:10 05/06/19 22:55 Bicarbonate, Sodium PER TUBE 650 mg .PER PROTOCOL PRN Administration ENTERAL TUBE OCCLUSION Sodium Chloride 10 ml 04/28/19 21:00 05/24/19 09:27 Flush - Normal Saline IVF 10 ml Q12HR RAIN Administration Sodium Chloride 10 ml 04/28/19 09:44 05/07/19 09:30 Flush - Normal Saline IVF 10 ml PRN PRN Administration Saline Flush Warfarin Sodium 2.5 mg 05/20/19 17:00 05/23/19 16:56 Coumadin PO 2.5 mg 1700 RAIN Administration - Exam NAD (obese), awake alert Eye: PERRL, anicteric sclera ENT: normocephalic atraumatic, no oropharyngeal lesions Neck: supple, symmetric, no JVD Heart: RRR, no murmur, no gallops Respiratory: CTAB, no wheezes Gastrointestinal: soft, non-tender Skin: normal turgor Neurological: CN's grossly intact Hosp A/P (1) Acute on chronic diastolic ACC/AHA stage C congestive heart failure Code(s): I50.33 - ACUTE ON CHRONIC DIASTOLIC (CONGESTIVE) HEART FAILURE Status : Acute (2) Volume overload Code(s): E87.70 - FLUID OVERLOAD, UNSPECIFIED Status: Acute (3) HTN (hypertension) Code(s): I10 - ESSENTIAL (PRIMARY) HYPERTENSION Status: Chronic Qualifiers: (4) Morbid obesity with BMI of 50.0-59.9, adult Code(s): E66.01 - MORBID (SEVERE) OBESITY DUE TO EXCESS CALORIES; Z68.43 - BODY MASS INDEX (BMI) 50-59.9, ADULT Status: Chronic (5) Pickwickian syndrome Code(s): E66.2 - MORBID (SEVERE) OBESITY WITH ALVEOLAR HYPOVENTILATION Status : Chronic (6) Tobacco abuse Code(s): Z72.0 - TOBACCO USE Status: Chronic - Plan - cont with rehab - pending placement - no changes in medical plan of care - once patient is able to ambulate some and not requiring high flow he can qualify for rehab - DC to rehab once arrangements made - case and plan d/w patient at length, he understood and agreed with this plan.
[2019-05-24] MEDS: traMADol HCl 50 MG TAB PO PRN ×2 (15:26→23:32)
[2019-05-24] MEDS: Warfarin Sodium 2.5 MG TAB PO SCH (15:26)
[2019-05-25 04:07] LABS: INR-International Normal Ratio 3.1; Prothrombin Time 31.4 SEC (12.0-14.7)
[2019-05-25] MEDS: Dronedarone HCl 400 MG TAB PO SCH ×2 (09:58→16:28)
[2019-05-25] MEDS: predniSONE 20 MG TAB PO SCH (09:58)
[2019-05-25] MEDS: Furosemide 40 MG TAB PO SCH (09:58)
[2019-05-25] MEDS: Docusate Sodium 100 MG/10 ML UDCUP PO SCH ×2 (10:04→20:56)
[2019-05-25] MEDS: Polyethylene Glycol 3350 17 GM Packet PO SCH (10:07)
--- NOTE | 2019-05-25 11:45 | PRG ---
DATE OF SERVICE: 05/25/2019 SUBJECTIVE: The patient is doing very well compared to several weeks ago. No specific complaints at this time. OBJECTIVE: VITAL SIGNS: Temperature 97.3, pulse 74, blood pressure 134/71, O2 saturation on room air at 92% on 2 L. HEENT: Unremarkable. NECK: No adenopathy or JVD. CHEST: Clear. CARDIAC: S1 and S2. Regular. ABDOMEN: Soft. EXTREMITIES: Brawny edema. LABORATORY DATA: No labs were done today. ASSESSMENT: 1. Resolving acute renal failure. 2. Anticoagulated for atrial flutter with slightly sub/supratherapeutic INR. 3. Obesity hypoventilation. PLAN: It looks like the dose of Coumadin has been reduced by Dr. Cordero. Increase activity as tolerated. Probably stable for rehab at any time from my standpoint. Job ID: [id number]
--- NOTE | 2019-05-25 13:43 | PRG ---
DATE OF SERVICE: 05/25/2019 SUBJECTIVE: Mr. Morgan seems to be doing well. Minimal right upper quadrant discomfort, this is felt on occasion. He is breathing reasonably. Denies palpitations. OBJECTIVE: VITAL SIGNS: Blood pressure is 150/86, heart rate 81, respirations 12. The patient is afebrile. GENERAL: This is an alert and oriented morbidly obese man, in no apparent distress. NECK: Supple. Jugular veins not distended or visible. CHEST: Coarse without crackles. HEART: Sounds are regular to rate and rhythm. No murmur or gallop. ABDOMEN: Benign. Bowel sounds positive. EXTREMITIES: Lower extremities without edema, clubbing, or cyanosis. IMAGING STUDIES: Telemetry strips revealed sinus rhythm, sinus tachycardia, continued. LABORATORY DATA: None recent, where the BUN and creatinine seems to have normalized despite no hemodialysis was performed almost a week. ASSESSMENT AND PLAN: Mr. Morgan is a pleasant 48-year-old morbidly obese man with presence of atrial flutter, status post cavotricuspid isthmus ablation, residual atrial fibrillation, which seems to be well suppressed now with Multaq. His initial renal insufficiency has improved and he is not requiring hemodialysis anymore. His INR is slightly over-therapeutic today, but continue warfarin to target INR 2 to 3. Continue Multaq therapy as well. Routine followup in the office is requested. Strongly advised weight loss. Job ID: [id number]
[2019-05-25] MEDS ORDERED: Lidocaine 1% (PF) 30 ML VIAL ONE (14:07)
[2019-05-25] MEDS ORDERED: Lidocaine 1% (PF) 30 ML VIAL FS SCH (14:30)
--- NOTE | 2019-05-25 16:13 | PDOC.HOSPP ---
- Subjective Subjective: 48 y/o morbidly obese male with chronic bilateral lower extremity lymphedema admitted with acute mental status change. Also found to have acute on chronic respiratory failure with hypercarbia and hypoxia as well as hyponatremia. Treated with non invasive respiratory support with improvement. Now off high flow oxygen and on nasal cannula oxygen. On BIPAP at nights. Ambulated with assistance today. - Objective Vital Signs & Weight: Vital Signs (12 hours) Temp Pulse Pulse Pulse Resp BP BP 05/25/19 15:23 98.7 F 05/25/19 14:28 89 18 05/25/19 13:45 77 99 139/76 144/79 H 05/25/19 12:00 97.6 F 05/25/19 09:58 81 05/25/19 07:58 81 19 05/25/19 07:55 05/25/19 07:43 97.9 F Pulse Ox Pulse Ox 05/25/19 15:23 05/25/19 14:28 85 L 05/25/19 13:45 89 L 05/25/19 12:00 05/25/19 09:58 05/25/19 07:58 91 L 05/25/19 07:55 93 L 05/25/19 07:43 Weight Admit Weight 488 lb 9.6 oz Weight 368 lb 9.6 oz Most Recent Monitor Data Heart Rate from ECG 86 NIBP 136/63 NIBP BP-Mean 87 Respiration from ECG 23 SpO2 89 I&O: 05/24/19 05/25/19 05/26/19 06:59 06:59 06:59 Intake Total 1070 1080 Output Total 4150 2550 Balance -3080 -4540 Result Diagrams: 05/22/19 04:51 05/22/19 04:51 ROS - Review of Systems All systems: All other ROS were reviewed and found negative. - Medication Medications: Active Medications Generic Name Dose Route Start Last Admin Trade Name Freq PRN Reason Stop Dose Admin Acetaminophen 650 mg 05/03/19 13:26 05/13/19 21:42 Tylenol Elixir PO 650 mg Q4H PRN Administration Headache/Fever or Pain 1-3 Al Hydroxide/Mg Hydroxide 30 ml 05/07/19 13:34 05/19/19 21:48 Maalox PO 30 ml Q4H PRN Administration Heartburn or Indigestion Albuterol/Ipratropium 3 ml 04/25/19 02:30 05/25/19 14:28 Duoneb NEB 3 ml [id number] RAIN Administration Artificial Tears 0 drop 05/05/19 05:40 05/05/19 05:52 Liquitears 15ml Bottle EA EYE 1 drop PRN PRN Administration Dry Eyes Diltiazem HCl 120 mg 05/18/19 09:00 05/25/19 09:58 Cardizem Cd PO 120 mg DAILY RAIN Administration Docusate Sodium 100 mg 05/07/19 21:00 05/25/19 10:04 Colace Liquid PO Not Given BID RAIN Dronedarone 400 mg 05/14/19 17:00 05/25/19 09:58 Multaq PO 400 mg BID-WM RAIN Administration Furosemide 40 mg 05/21/19 07:30 05/25/19 09:58 Lasix PO 40 mg DAILY-AC RAIN Administration Pantoprazole Sodium 40 mg 05/08/19 09:00 05/25/19 09:57 Protonix PO 40 mg DAILY RAIN Administration Polyethylene Glycol 17 gm 05/08/19 09:00 05/25/19 10:07 Miralax PO Not Given DAILY RAIN Prednisone 20 mg 05/21/19 08:00 05/25/19 09:58 Prednisone PO 05/28/19 08:01 20 mg QAM-WM RAIN Administration Sodium Bicarbonate 650 mg 04/29/19 03:10 05/06/19 22:55 Bicarbonate, Sodium PER TUBE 650 mg .PER PROTOCOL PRN Administration ENTERAL TUBE OCCLUSION Sodium Chloride 10 ml 04/28/19 21:00 05/25/19 09:58 Flush - Normal Saline IVF 10 ml Q12HR RAIN Administration Sodium Chloride 10 ml 04/28/19 09:44 05/07/19 09:30 Flush - Normal Saline IVF 10 ml PRN PRN Administration Saline Flush Tramadol HCl 50 mg 05/24/19 14:45 05/24/19 23:32 Ultram PO 50 mg Q6H PRN Administration Moderate Pain (4-6) - Exam awake alert Eye: PERRL, anicteric sclera ENT: normocephalic atraumatic Heart: RRR Respiratory: no wheezes, no rales, no ronchi Gastrointestinal: soft, non-tender, non-distended, normal bowel sounds ( morbidly obese) Extremities: no edema (No obvious pitting edema but both legs are huge) Neurological: CN's grossly intact, no focal deficits Psychiatric: normal affect, A&O x 3 Hosp A/P (1) Acute on chronic respiratory failure with hypoxia and hypercapnia Code(s): J96.21 - ACUTE AND CHRONIC RESPIRATORY FAILURE WITH HYPOXIA; J96.22 - ACUTE AND CHRONIC RESPIRATORY FAILURE WITH HYPERCAPNIA Status: Acute (2) Acute on chronic diastolic ACC/AHA stage C congestive heart failure Code(s): I50.33 - ACUTE ON CHRONIC DIASTOLIC (CONGESTIVE) HEART FAILURE Status : Acute (3) Acute renal failure Status: Acute (4) Hyponatremia Code(s): E87.1 - HYPO-OSMOLALITY AND HYPONATREMIA Status: Acute (5) Atrial flutter Code(s): I48.92 - UNSPECIFIED ATRIAL FLUTTER Status: Acute (6) Volume overload Code(s): E87.70 - FLUID OVERLOAD, UNSPECIFIED Status: Acute (7) HTN (hypertension) Code(s): I10 - ESSENTIAL (PRIMARY) HYPERTENSION Status: Chronic Qualifiers: (8) Lymphedema of both lower extremities Code(s): I89.0 - LYMPHEDEMA, NOT ELSEWHERE CLASSIFIED Status: Chronic (9) Morbid obesity with BMI of 50.0-59.9, adult Code(s): E66.01 - MORBID (SEVERE) OBESITY DUE TO EXCESS CALORIES; Z68.43 - BODY MASS INDEX (BMI) 50-59.9, ADULT Status: Chronic (10) Pickwickian syndrome Code(s): E66.2 - MORBID (SEVERE) OBESITY WITH ALVEOLAR HYPOVENTILATION Status : Chronic (11) Chronic anticoagulation Code(s): Z79.01 - CORRECTION (CURRENT) USE OF ANTICOAGULANTS Status: Acute - Plan Continue coumadin and monitor INR. Continue PT/OT wean oxygen as tolerated. consult rehab intake. get repeat CBC, mag and renal panel in the am.
[2019-05-25] MEDS: traMADol HCl 50 MG TAB PO PRN (22:01)
[2019-05-26 06:03] LABS: #Eosinphils 0.1 thou/uL (0.0-0.7); #Lymphocytes 2.4 thou/uL (1.20-3.40); #Monocytes 0.8 thou/uL (0.11-0.59); %Basophils 0.6 % (0.0-1.0); %Eosinophils 1.6 % (0.0-10.0); %Lymphocytes 32.8 % (21.0-51.0); %Monocytes 10.8 % (0.0-10.0); %Neutrophils 54.3 % (42.0-75.0); Hemoglobin 11.7 g/dL (14.0-18.0); Mean Corpuscular HGB CONC 31.6 g/dL (32.0-36.0); Mean Corpuscular Hemoglobin 30.3 pg (27.0-31.0); Mean Corpuscular Volume 95.9 fL (78.0-98.0); Platelet Count 244 thou/uL (130-400); RBC Distribution Width 14.1 % (11.5-14.5); Red Blood Cell (RBC) Count 3.85 mill/uL (4.70-6.10); White Blood Cell (WBC) Count 7.3 thou/uL (4.8-10.8)
[2019-05-26 06:06] LABS: INR-International Normal Ratio 2.5; Prothrombin Time 26.7 SEC (12.0-14.7)
[2019-05-26 06:23] LABS: Albumin 3.3 g/dL (3.5-5.0); Anion Gap 14 mmol/L (10-20); BUN (Urea Nitrogen) 8 mg/dL (8.9-20.6); BUN/Creatinine Ratio 10.13; Calc. Creatinine Clearance 273 mL/min (70-130); Calcium 8.3 mg/dL (7.8-10.44); Carbon Dioxide 32 mmol/L (22-29); Chloride 94 mmol/L (98-107); Estimated GFR-MDRD Greater than 90; Glucose 90 mg/dL (70-105); Magnesium 1.3 mg/dL (1.6-2.6); Phosphorus 5.1 mg/dL (2.3-4.7); Potassium 3.3 mmol/L (3.5-5.1); Sodium 137 mmol/L (136-145)
[2019-05-26] MEDS: Furosemide 40 MG TAB PO SCH (08:55)
[2019-05-26] MEDS: Dronedarone HCl 400 MG TAB PO SCH ×2 (08:55→17:19)
[2019-05-26] MEDS: predniSONE 20 MG TAB PO SCH (08:55)
--- NOTE | 2019-05-26 10:07 | PRG ---
DATE OF SERVICE: 05/26/2019 SUBJECTIVE: He is doing well, has no acute complaints. He is supposed to have his dialysis catheter removed today. OBJECTIVE: VITAL SIGNS: His temperature is 97.8, pulse 86, blood pressure 139/64, O2 saturation 89% to 91%. HEENT: Unremarkable. NECK: No adenopathy or JVD. CHEST: Clear anteriorly. CARDIAC: S1, S2. Regular. ABDOMEN: Soft. Obese. EXTREMITIES: No edema. LABORATORY DATA: White blood cell count 7.3, hematocrit 37, platelet count 244. Sodium 137, potassium 3.3, BUN 8, creatinine 0.7. ASSESSMENT: 1. Resolved acute renal failure. 2. Obesity hypoventilation syndrome. 3. Morbid obesity. PLAN: 1. Increase activity as tolerated. 2. He can be transferred to the medical unit from my standpoint if okay with Dr. Francisco. Job ID: [id number]
--- NOTE | 2019-05-26 14:44 | PDOC.HOSPP ---
- Subjective Subjective: 48 y/o morbidly obese male with chronic bilateral lower extremity lymphedema admitted with acute mental status change. Also found to have acute on chronic respiratory failure with hypercarbia and hypoxia as well as hyponatremia. Treated with non invasive respiratory support with improvement. Now off high flow oxygen and on nasal cannula oxygen. - Objective Vital Signs & Weight: Vital Signs (12 hours) Temp Pulse Pulse Pulse Resp BP BP 05/26/19 14:08 86 88 148/76 H 120/61 05/26/19 10:37 97.8 F 05/26/19 10:25 81 15 05/26/19 07:48 05/26/19 07:18 97.8 F 05/26/19 06:18 93 15 05/26/19 04:10 05/26/19 03:21 98.6 F Pulse Ox Pulse Ox Pulse Ox 05/26/19 14:08 92 L 91 L 05/26/19 10:37 05/26/19 10:25 90 L 05/26/19 07:48 90 L 05/26/19 07:18 05/26/19 06:18 93 L 05/26/19 04:10 91 L 05/26/19 03:21 Weight Admit Weight 488 lb 9.6 oz Weight 362 lb 12.8 oz Most Recent Monitor Data Heart Rate from ECG 91 NIBP 120/61 NIBP BP-Mean 80 Respiration from ECG 20 SpO2 85 I&O: 05/25/19 05/26/19 05/27/19 06:59 06:59 06:59 Intake Total 1080 2000 Output Total 2550 2500 Balance -1470 -500 Result Diagrams: 05/26/19 05:50 05/26/19 05:50 ROS - Review of Systems All systems: All other ROS were reviewed and found negative. - Medication Medications: Active Medications Generic Name Dose Route Start Last Admin Trade Name Freq PRN Reason Stop Dose Admin Acetaminophen 650 mg 05/03/19 13:26 05/13/19 21:42 Tylenol Elixir PO 650 mg Q4H PRN Administration Headache/Fever or Pain 1-3 Al Hydroxide/Mg Hydroxide 30 ml 05/07/19 13:34 05/19/19 21:48 Maalox PO 30 ml Q4H PRN Administration Heartburn or Indigestion Albuterol/Ipratropium 3 ml 04/25/19 02:30 05/26/19 10:25 Duoneb NEB 3 ml [id number] RAIN Administration Artificial Tears 0 drop 05/05/19 05:40 05/05/19 05:52 Liquitears 15ml Bottle EA EYE 1 drop PRN PRN Administration Dry Eyes Diltiazem HCl 120 mg 05/18/19 09:00 05/25/19 09:58 Cardizem Cd PO 120 mg DAILY RAIN Administration Docusate Sodium 100 mg 05/07/19 21:00 05/25/19 20:56 Colace Liquid PO Not Given BID RAIN Dronedarone 400 mg 05/14/19 17:00 05/26/19 08:55 Multaq PO 400 mg BID-WM RAIN Administration Furosemide 40 mg 05/21/19 07:30 05/26/19 08:55 Lasix PO 40 mg DAILY-AC RAIN Administration Pantoprazole Sodium 40 mg 05/08/19 09:00 05/26/19 08:55 Protonix PO 40 mg DAILY RAIN Administration Polyethylene Glycol 17 gm 05/08/19 09:00 05/25/19 10:07 Miralax PO Not Given DAILY RAIN Prednisone 20 mg 05/21/19 08:00 05/26/19 08:55 Prednisone PO 05/28/19 08:01 20 mg QAM-WM RAIN Administration Sodium Bicarbonate 650 mg 04/29/19 03:10 05/06/19 22:55 Bicarbonate, Sodium PER TUBE 650 mg .PER PROTOCOL PRN Administration ENTERAL TUBE OCCLUSION Sodium Chloride 10 ml 04/28/19 21:00 05/26/19 08:56 Flush - Normal Saline IVF 10 ml Q12HR RAIN Administration Sodium Chloride 10 ml 04/28/19 09:44 05/07/19 09:30 Flush - Normal Saline IVF 10 ml PRN PRN Administration Saline Flush Tramadol HCl 50 mg 05/24/19 14:45 05/25/19 22:01 Ultram PO 50 mg Q6H PRN Administration Moderate Pain (4-6) - Exam awake alert Eye: PERRL, anicteric sclera ENT: normocephalic atraumatic Heart: RRR Respiratory: no wheezes, no rales, no ronchi Gastrointestinal: soft, non-tender, non-distended, normal bowel sounds ( morbidly obese) Extremities: no edema Skin: normal turgor (chronic lymphedema changes noted) Neurological: CN's grossly intact, no focal deficits Psychiatric: normal affect, A&O x 3 Hosp A/P (1) Acute on chronic respiratory failure with hypoxia and hypercapnia Code(s): J96.21 - ACUTE AND CHRONIC RESPIRATORY FAILURE WITH HYPOXIA; J96.22 - ACUTE AND CHRONIC RESPIRATORY FAILURE WITH HYPERCAPNIA Status: Acute (2) Acute on chronic diastolic ACC/AHA stage C congestive heart failure Code(s): I50.33 - ACUTE ON CHRONIC DIASTOLIC (CONGESTIVE) HEART FAILURE Status : Acute (3) Acute renal failure Status: Acute (4) Hyponatremia Code(s): E87.1 - HYPO-OSMOLALITY AND HYPONATREMIA Status: Acute (5) Atrial flutter Code(s): I48.92 - UNSPECIFIED ATRIAL FLUTTER Status: Acute (6) Volume overload Code(s): E87.70 - FLUID OVERLOAD, UNSPECIFIED Status: Acute (7) HTN (hypertension) Code(s): I10 - ESSENTIAL (PRIMARY) HYPERTENSION Status: Chronic Qualifiers: (8) Lymphedema of both lower extremities Code(s): I89.0 - LYMPHEDEMA, NOT ELSEWHERE CLASSIFIED Status: Chronic (9) Morbid obesity with BMI of 50.0-59.9, adult Code(s): E66.01 - MORBID (SEVERE) OBESITY DUE TO EXCESS CALORIES; Z68.43 - BODY MASS INDEX (BMI) 50-59.9, ADULT Status: Chronic (10) Pickwickian syndrome Code(s): E66.2 - MORBID (SEVERE) OBESITY WITH ALVEOLAR HYPOVENTILATION Status : Chronic (11) Chronic anticoagulation Code(s): Z79.01 - ZOOLOGY PROFESSOR (CURRENT) USE OF ANTICOAGULANTS Status: Acute - Plan Continue current care. Wean off oxygen as tolerated. Awaiting placement
[2019-05-26] MEDS: traMADol HCl 50 MG TAB PO PRN (15:18)
[2019-05-26] MEDS ORDERED: Warfarin Sodium 2 MG TAB PO SCH ×2 (17:00)
[2019-05-26] MEDS: Polyethylene Glycol 3350 17 GM Packet PO SCH (17:16)
[2019-05-26] MEDS: Docusate Sodium 100 MG/10 ML UDCUP PO SCH ×2 (17:16→20:18)
--- NOTE | 2019-05-26 17:31 | PDOC.OP ---
Operative Note - Operative Note Operative Note: PROCEDURE: Removal of tunneled hemodialysis catheter SURGEON: Sheri García M.D. DATE OF PROCEDURE: 05/26/2019 PREOPERATIVE DIAGNOSIS: Resolved acute renal failure PROCEDURE: After informed consent was obtained, the patient was placed in the supine position. The neck and chest were prepped with ChloraPrep and the sutures securing the dialysis catheter to the skin were cut. Local anesthesia was infused to the skin and subcutaneous tissues surrounding the subcutaneous cuff and the cuff was dissected free of the surrounding subcutaneous tissue. The catheter was then removed during exhalation and a sterile gauze and Tegaderm dressing placed at that site. Pressure was held for 5 minutes and hemostasis confirmed. Estimated blood loss was minimal. There were no complications. There were no specimens.
[2019-05-26] MEDS ORDERED: Clopidogrel Bisulfate 75 MG TAB ONE (20:16)
[2019-05-27 05:59] LABS: INR-International Normal Ratio 2.1; Prothrombin Time 23.2 SEC (12.0-14.7)
[2019-05-27] MEDS: Dronedarone HCl 400 MG TAB PO SCH ×2 (08:46→17:55)
[2019-05-27] MEDS: predniSONE 20 MG TAB PO SCH (08:46)
[2019-05-27] MEDS: Furosemide 40 MG TAB PO SCH (08:46)
[2019-05-27] MEDS: Docusate Sodium 100 MG/10 ML UDCUP PO SCH ×2 (08:49→21:29)
--- NOTE | 2019-05-27 08:59 | PRG ---
DATE OF SERVICE: 05/27/2019 SUBJECTIVE: Eddie is doing well. He has no acute complaints. Actually, he did not even BiPAP last night. OBJECTIVE: VITAL SIGNS: On exam , temperature 98, pulse 88, blood pressure 122/71. HEENT: Unremarkable. NECK: No JVD. CHEST: Clear. CARDIAC: S1 and S2. Regular. ABDOMEN: Obese. LABORATORY DATA: INR is 2.1. ASSESSMENT: 1. Obesity hypoventilation. 2. Status post acute renal failure requiring hemodialysis. 3. Morbid obesity. PLAN: Can be transferred to the medical unit awaiting placement. Job ID: [id number]
[2019-05-27] MEDS: Polyethylene Glycol 3350 17 GM Packet PO SCH ×2 (14:57→18:33)
--- NOTE | 2019-05-27 15:13 | PDOC.HOSPP ---
- Subjective Encounter Date: 05/27/19 Encounter Time: 14:13 Subjective: 48 y/o morbidly obese male with chronic bilateral lower extremity lymphedema admitted with acute mental status change. Also found to have acute on chronic respiratory failure with hypercarbia and hypoxia as well as hyponatremia. Treated with non invasive respiratory support with improvement. Now off high flow oxygen and on nasal cannula oxygen. No new problem. awaiting placement. - Objective Vital Signs & Weight: Vital Signs (12 hours) Temp Pulse Resp BP Pulse Ox 05/27/19 15:04 98.0 F 05/27/19 14:30 81 20 94 L 05/27/19 11:22 97.8 F 05/27/19 10:53 83 19 95 05/27/19 08:46 91 138/75 05/27/19 08:00 93 L 05/27/19 07:17 97.1 F L 05/27/19 07:05 93 L 05/27/19 07:03 80 20 94 L 05/27/19 03:57 98.0 F Weight Admit Weight 488 lb 9.6 oz Weight 360 lb 12.8 oz Most Recent Monitor Data Heart Rate from ECG 91 NIBP 148/79 NIBP BP-Mean 102 Respiration from ECG 15 SpO2 88 I&O: 05/26/19 05/27/19 05/28/19 06:59 06:59 06:59 Intake Total 1999 1950 Output Total 2500 3820 Balance -500 -1870 Result Diagrams: 05/26/19 05:50 05/26/19 05:50 ROS - Medication Medications: Active Medications Generic Name Dose Route Start Last Admin Trade Name Freq PRN Reason Stop Dose Admin Acetaminophen 650 mg 05/03/19 13:26 05/13/19 21:42 Tylenol Elixir PO 650 mg Q4H PRN Administration Headache/Fever or Pain 1-3 Al Hydroxide/Mg Hydroxide 30 ml 05/07/19 13:34 05/19/19 21:48 Maalox PO 30 ml Q4H PRN Administration Heartburn or Indigestion Albuterol/Ipratropium 3 ml 04/25/19 02:30 05/27/19 14:30 Duoneb NEB 3 ml [id number] RAIN Administration Artificial Tears 0 drop 05/05/19 05:40 05/05/19 05:52 Liquitears 15ml Bottle EA EYE 1 drop PRN PRN Administration Dry Eyes Diltiazem HCl 120 mg 05/18/19 09:00 05/27/19 08:46 Cardizem Cd PO 120 mg DAILY RAIN Administration Docusate Sodium 100 mg 05/07/19 21:00 05/27/19 08:49 Colace Liquid PO Not Given BID RAIN Dronedarone 400 mg 05/14/19 17:00 05/27/19 08:46 Multaq PO 400 mg BID-WM RAIN Administration Furosemide 40 mg 05/21/19 07:30 05/27/19 08:46 Lasix PO 40 mg DAILY-AC RAIN Administration Pantoprazole Sodium 40 mg 05/08/19 09:00 05/27/19 08:47 Protonix PO 40 mg DAILY RAIN Administration Polyethylene Glycol 17 gm 05/08/19 09:00 05/27/19 14:57 Miralax PO Not Given DAILY RAIN Prednisone 20 mg 05/21/19 08:00 05/27/19 08:46 Prednisone PO 05/28/19 08:01 20 mg QAM-WM RAIN Administration Sodium Bicarbonate 650 mg 04/29/19 03:10 05/06/19 22:55 Bicarbonate, Sodium PER TUBE 650 mg .PER PROTOCOL PRN Administration ENTERAL TUBE OCCLUSION Sodium Chloride 10 ml 04/28/19 21:00 05/27/19 08:50 Flush - Normal Saline IVF 10 ml Q12HR RAIN Administration Sodium Chloride 10 ml 04/28/19 09:44 05/07/19 09:30 Flush - Normal Saline IVF 10 ml PRN PRN Administration Saline Flush Tramadol HCl 50 mg 05/24/19 14:45 05/26/19 15:18 Ultram PO 50 mg Q6H PRN Administration Moderate Pain (4-6) - Exam awake alert Eye: PERRL, anicteric sclera ENT: normocephalic atraumatic Neck: supple, no JVD Heart: RRR Respiratory: no wheezes, no rales, no ronchi Gastrointestinal: soft, non-tender, non-distended, normal bowel sounds Gastrointestinal - other findings: morbidly obese Extremeties - other findings: huge bilateral legs with no ovbious edema. lymphedema changes noted Neurological: CN's grossly intact, no focal deficits Psychiatric: normal affect, normal behavior, A&O x 3 Hosp A/P (1) Acute on chronic respiratory failure with hypoxia and hypercapnia Code(s): J96.21 - ACUTE AND CHRONIC RESPIRATORY FAILURE WITH HYPOXIA; J96.22 - ACUTE AND CHRONIC RESPIRATORY FAILURE WITH HYPERCAPNIA Status: Acute (2) Acute on chronic diastolic ACC/AHA stage C congestive heart failure Code(s): I50.33 - ACUTE ON CHRONIC DIASTOLIC (CONGESTIVE) HEART FAILURE Status : Acute (3) Acute renal failure Status: Acute (4) Hyponatremia Code(s): E87.1 - HYPO-OSMOLALITY AND HYPONATREMIA Status: Acute (5) Atrial flutter Code(s): I48.92 - UNSPECIFIED ATRIAL FLUTTER Status: Acute (6) Volume overload Code(s): E87.70 - FLUID OVERLOAD, UNSPECIFIED Status: Acute (7) HTN (hypertension) Code(s): I10 - ESSENTIAL (PRIMARY) HYPERTENSION Status: Chronic Qualifiers: (8) Lymphedema of both lower extremities Code(s): I89.0 - LYMPHEDEMA, NOT ELSEWHERE CLASSIFIED Status: Chronic (9) Morbid obesity with BMI of 50.0-59.9, adult Code(s): E66.01 - MORBID (SEVERE) OBESITY DUE TO EXCESS CALORIES; Z68.43 - BODY MASS INDEX (BMI) 50-59.9, ADULT Status: Chronic (10) Pickwickian syndrome Code(s): E66.2 - MORBID (SEVERE) OBESITY WITH ALVEOLAR HYPOVENTILATION Status : Chronic (11) Chronic anticoagulation Code(s): Z79.01 - FPC (CURRENT) USE OF ANTICOAGULANTS Status: Acute - Plan Continue supportice acre Awaiting Placement.
[2019-05-27] MEDS: Warfarin Sodium 2 MG TAB PO SCH (17:56)
[2019-05-27] MEDS: traMADol HCl 50 MG TAB PO PRN (21:27)
[2019-05-28] MEDS: traMADol HCl 50 MG TAB PO PRN ×3 (05:53→22:31)
[2019-05-28 06:03] LABS: INR-International Normal Ratio 1.8; Prothrombin Time 20.5 SEC (12.0-14.7)
--- NOTE | 2019-05-28 09:28 | PRG ---
DATE OF SERVICE: 05/28/2019 SUBJECTIVE: Doing well. He is a little disappointed that Physical Therapy did not seem yesterday. OBJECTIVE: VITAL SIGNS: Temperature 97.9, pulse , respirations 20, O2 saturation 97% on 2 L, blood pressure 137/74. HEENT: Unremarkable. NECK: No adenopathy or JVD. CHEST: Clear to auscultation. CARDIAC: S1 and S2 regular. ABDOMEN: Soft. EXTREMITIES: No edema. LABORATORY DATA: INR is 1.8. ASSESSMENT: 1. Atrial flutter. 2. Obesity hypoventilation. 3. Status post acute renal failure requiring dialysis. PLAN: I spoke with Case Management about possible placement at rehab for reconditioning. Coumadin management per Cardiology and Internal Medicine. I will see less often. Job ID: [id number]
[2019-05-28] MEDS: Dronedarone HCl 400 MG TAB PO SCH ×2 (10:00→16:37)
[2019-05-28] MEDS: Furosemide 40 MG TAB PO SCH (10:00)
[2019-05-28] MEDS: Polyethylene Glycol 3350 17 GM Packet PO SCH (10:02)
[2019-05-28] MEDS: Docusate Sodium 100 MG/10 ML UDCUP PO SCH ×2 (10:02→20:39)
--- NOTE | 2019-05-28 11:54 | PQF ---
CLINICAL DOCUMENTATION IMPROVEMENT CLARIFICATION FORM: ICD-10 Updated PLEASE DO AN ADDENDUM TO THE PROGRESS NOTE WITH ANY DOCUMENTATION UPDATES OR ADDITIONS AND CARRY THROUGH TO DC SUMMARY. THANK YOU. DATE: 05/27/19 ATTN: DR. AVILES Please exercise your independent, professional judgment in responding to the clarification form. Clinical indicators are provided on the bottom of this form for your review Please check appropriate box(s) to clarify if the following diagnosis has been ruled in or ruled out: "SEPSIS" [ ] Ruled in diagnosis [ ] Continue to treat [ ] Resolved [ ] Ruled out diagnosis [ X] Cannot rule out diagnosis [ ] Other diagnosis [ ] Unable to determine In addition, please specify: Present on Admission (POA): [ X ] Yes [ ] No [ ] Unable to determine For continuity of documentation, please document condition throughout progress notes and discharge summary. Thank You. CLINICAL INDICATORS - SIGNS / SYMPTOMS / LABS H&P: "POSSIBLE UNDERLYING SEPSIS" MENTAL STATUS CHANGES/ CONFUSION (PER ER NOTE) PULSE 101-138 RR 21-26 BP 79/57 RISKS: RECENT PNEUMONIA MULTIPLE COMORBIDITIES TREATMENT: IV FLUIDS (ER) IV AZITHROMYCIN (04/24-04/27) IV CEFEPIME (04/26-04/28) IV VANCOMYCIN (04/26-04/28) BLOOD CULTURES CRITICAL CARE MONITORING SAP Pawn Shop Keeper Crystal Reports Winform Viewer (This form is maintained as a part of the permanent medical record) 2014 [employer]. All Rights Reserved ALVARO [email or web address] Office: [phone] [facility]
--- NOTE | 2019-05-28 11:55 | PQF ---
CLINICAL DOCUMENTATION IMPROVEMENT CLARIFICATION FORM: ICD-10 Updated PLEASE DO AN ADDENDUM TO THE PROGRESS NOTE WITH ANY DOCUMENTATION UPDATES OR ADDITIONS AND CARRY THROUGH TO DC SUMMARY. THANK YOU. DATE: 05/28/19 ATTN: DR. AVILES Please exercise your independent, professional judgment in responding to the clarification form. Clinical indicators are provided on the bottom of this form for your review Please check appropriate box(s) to clarify if the following diagnosis has been ruled in or ruled out: "PNEUMONIA" [ ] Ruled in diagnosis [ ] Continue to treat [ ] Resolved [ ] Ruled out diagnosis [ ] Cannot rule out diagnosis [ ] Other diagnosis [ ] Unable to determine In addition, please specify: Present on Admission (POA): [ ] Yes [ ] No [ ] Unable to determine For continuity of documentation, please document condition throughout progress notes and discharge summary. Thank You. CLINICAL INDICATORS - SIGNS / SYMPTOMS / LABS PROGRESS NOTE 04/26: "POSSIBLE PNEUMONIA" PULMONARY NOTE 04/28: "I DO NOT SUSPECT THIS IS PNEUMONIA." RISKS: RECENT PNEUMONIA RESPIRATORY FAILURE POSSIBLE COPD TREATMENT: IV AZITHROMYCIN (04/24-04/27) IV CEFEPIME (04/26-04/28) IV VANCOMYCIN (04/26-04/28) PULMONARY CONSULT SERIAL CHEST XRAYS SUPPLEMENTAL OXYGEN / MECHANICAL VENTILATION (This form is maintained as a part of the permanent medical record) SAP Garden Tractor Mechanic [employer] Winform Viewer 2015 [employer]. All Rights Reserved [email or web address] [email or web address] Office: [phone] [facility]
[2019-05-28] MEDS: Warfarin Sodium 2 MG TAB PO SCH (16:37)
[2019-05-29 04:55] LABS: INR-International Normal Ratio 1.6; Prothrombin Time 19.3 SEC (12.0-14.7)
[2019-05-29] MEDS: Furosemide 40 MG TAB PO SCH (08:49)
[2019-05-29] MEDS: Dronedarone HCl 400 MG TAB PO SCH ×2 (08:50→17:11)
[2019-05-29] MEDS: Docusate Sodium 100 MG/10 ML UDCUP PO SCH ×2 (08:50→21:41)
[2019-05-29] MEDS: Polyethylene Glycol 3350 17 GM Packet PO SCH (08:51)
[2019-05-29 09:22] LABS: Anion Gap 11 mmol/L (10-20); BUN (Urea Nitrogen) 9 mg/dL (8.9-20.6); Calc. Creatinine Clearance 274 mL/min (70-130); Calcium 8.4 mg/dL (7.8-10.44); Carbon Dioxide 31 mmol/L (22-29); Chloride 97 mmol/L (98-107); Estimated GFR-MDRD Greater than 90; Glucose 99 mg/dL (70-105); Potassium 3.8 mmol/L (3.5-5.1); Sodium 135 mmol/L (136-145)
--- NOTE | 2019-05-29 13:51 | PDOC.HOSPP ---
- Subjective Encounter Date: 05/29/19 Encounter Time: 10:50 Subjective: 48 y/o morbidly obese male with chronic bilateral lower extremity lymphedema admitted with acute mental status change. Also found to have acute on chronic respiratory failure with hypercarbia and hypoxia as well as hyponatremia. Treated with non invasive respiratory support with improvement. Now off high flow oxygen and on nasal cannula oxygen. No new problem. Working with PT. Awaiting placement. - Objective Vital Signs & Weight: Vital Signs (12 hours) Temp Pulse Pulse Pulse Resp BP BP 05/29/19 11:37 80 20 05/29/19 10:42 97 105 H 05/29/19 08:49 78 119/77 05/29/19 08:00 97.6 F 78 18 119/77 05/29/19 06:46 76 18 05/29/19 01:57 78 16 Pulse Ox Pulse Ox Pulse Ox 05/29/19 11:37 05/29/19 10:42 88 L 90 L 05/29/19 08:49 05/29/19 08:00 93 L 05/29/19 06:46 92 L 05/29/19 01:57 93 L Weight Admit Weight 488 lb 9.6 oz Weight 350 lb 3.2 oz Most Recent Monitor Data Heart Rate from ECG 84 NIBP 137/71 NIBP BP-Mean 93 Respiration from ECG 22 SpO2 93 I&O: 05/28/19 05/29/19 05/30/19 06:59 06:59 06:59 Intake Total 1570 0 Output Total 3975 1500 Balance -2405 -1500 Result Diagrams: 05/26/19 05:50 05/29/19 08:51 ROS - Medication Medications: Active Medications Generic Name Dose Route Start Last Admin Trade Name Freq PRN Reason Stop Dose Admin Acetaminophen 650 mg 05/03/19 13:26 05/13/19 21:42 Tylenol Elixir PO 650 mg Q4H PRN Administration Headache/Fever or Pain 1-3 Al Hydroxide/Mg Hydroxide 30 ml 05/07/19 13:34 05/19/19 21:48 Maalox PO 30 ml Q4H PRN Administration Heartburn or Indigestion Albuterol/Ipratropium 3 ml 04/25/19 02:30 05/29/19 11:37 Duoneb NEB 3 ml [id number] RAIN Administration Artificial Tears 0 drop 05/05/19 05:40 05/05/19 05:52 Liquitears 15ml Bottle EA EYE 1 drop PRN PRN Administration Dry Eyes Diltiazem HCl 120 mg 05/18/19 09:00 05/29/19 08:49 Cardizem Cd PO 120 mg DAILY RAIN Administration Docusate Sodium 100 mg 05/07/19 21:00 05/29/19 08:50 Colace Liquid PO Not Given BID RAIN Dronedarone 400 mg 05/14/19 17:00 05/29/19 08:50 Multaq PO 400 mg BID-WM RAIN Administration Furosemide 40 mg 05/21/19 07:30 05/29/19 08:49 Lasix PO 40 mg DAILY-AC RAIN Administration Pantoprazole Sodium 40 mg 05/08/19 09:00 05/29/19 08:50 Protonix PO 40 mg DAILY RAIN Administration Polyethylene Glycol 17 gm 05/08/19 09:00 05/29/19 08:51 Miralax PO Not Given DAILY RAIN Sodium Bicarbonate 650 mg 04/29/19 03:10 05/06/19 22:55 Bicarbonate, Sodium PER TUBE 650 mg .PER PROTOCOL PRN Administration ENTERAL TUBE OCCLUSION Sodium Chloride 10 ml 04/28/19 21:00 05/29/19 08:52 Flush - Normal Saline IVF Not Given Q12HR RAIN Sodium Chloride 10 ml 04/28/19 09:44 05/07/19 09:30 Flush - Normal Saline IVF 10 ml PRN PRN Administration Saline Flush Tramadol HCl 50 mg 05/24/19 14:45 05/28/19 22:31 Ultram PO 50 mg Q6H PRN Administration Moderate Pain (4-6) Warfarin Sodium 2.5 mg 05/27/19 17:00 05/28/19 16:37 Coumadin PO 2.5 mg 1700 RAIN Administration - Exam awake alert Eye: PERRL, anicteric sclera ENT: normocephalic atraumatic, moist mucosa Neck: symmetric Heart: RRR Respiratory: no wheezes, no rales, no ronchi Gastrointestinal: soft, non-tender, non-distended, normal bowel sounds Gastrointestinal - other findings: morbidly obese Extremities: no cyanosis Extremeties - other findings: Chronic lympedema changes with no obvious edema noted Neurological: CN's grossly intact, no focal deficits Psychiatric: normal affect, A&O x 3 Hosp A/P (1) Acute on chronic respiratory failure with hypoxia and hypercapnia Code(s): J96.21 - ACUTE AND CHRONIC RESPIRATORY FAILURE WITH HYPOXIA; J96.22 - ACUTE AND CHRONIC RESPIRATORY FAILURE WITH HYPERCAPNIA Status: Acute (2) Acute on chronic diastolic ACC/AHA stage C congestive heart failure Code(s): I50.33 - ACUTE ON CHRONIC DIASTOLIC (CONGESTIVE) HEART FAILURE Status : Acute (3) Acute renal failure Status: Acute (4) Hyponatremia Code(s): E87.1 - HYPO-OSMOLALITY AND HYPONATREMIA Status: Acute (5) Atrial flutter Code(s): I48.92 - UNSPECIFIED ATRIAL FLUTTER Status: Acute (6) Volume overload Code(s): E87.70 - FLUID OVERLOAD, UNSPECIFIED Status: Acute (7) HTN (hypertension) Code(s): I10 - ESSENTIAL (PRIMARY) HYPERTENSION Status: Chronic Qualifiers: (8) Lymphedema of both lower extremities Code(s): I89.0 - LYMPHEDEMA, NOT ELSEWHERE CLASSIFIED Status: Chronic (9) Morbid obesity with BMI of 50.0-59.9, adult Code(s): E66.01 - MORBID (SEVERE) OBESITY DUE TO EXCESS CALORIES; Z68.43 - BODY MASS INDEX (BMI) 50-59.9, ADULT Status: Chronic (10) Pickwickian syndrome Code(s): E66.2 - MORBID (SEVERE) OBESITY WITH ALVEOLAR HYPOVENTILATION Status : Chronic (11) Chronic anticoagulation Code(s): Z79.01 - ALF (CURRENT) USE OF ANTICOAGULANTS Status: Acute - Plan Continue supportive Wean oxygen as tolerated. Continue diuretic. Awaiting Placement. Check BMP given continue diuretic therapy
[2019-05-29] MEDS: traMADol HCl 50 MG TAB PO PRN ×2 (14:52→21:41)
[2019-05-29] MEDS: Warfarin Sodium 2 MG TAB PO SCH (17:12)
[2019-05-30 05:53] LABS: INR-International Normal Ratio 1.6; Prothrombin Time 18.9 SEC (12.0-14.7)
[2019-05-30] MEDS ORDERED: Magnesium Sulfate 4 GM in Sodium Chloride 0.9% 250 ML 250 ML IVPB SCH (08:30)
[2019-05-30] MEDS: Dronedarone HCl 400 MG TAB PO SCH ×2 (09:19→17:48)
[2019-05-30] MEDS: Furosemide 40 MG TAB PO SCH (09:19)
[2019-05-30] MEDS: Docusate Sodium 100 MG/10 ML UDCUP PO SCH ×2 (09:19→20:56)
[2019-05-30] MEDS: Polyethylene Glycol 3350 17 GM Packet PO SCH (09:20)
--- NOTE | 2019-05-30 15:30 | PDOC.HOSPP ---
- Subjective Encounter Date: 05/30/19 Encounter Time: 12:29 Subjective: 48 y/o morbidly obese male with chronic bilateral lower extremity lymphedema admitted with acute mental status change. Also found to have acute on chronic respiratory failure with hypercarbia and hypoxia as well as hyponatremia. Treated with non invasive respiratory support with improvement. Now off high flow oxygen and on nasal cannula oxygen. No new problem. Working with PT. Awaiting placement. - Objective Vital Signs & Weight: Vital Signs (12 hours) Pulse Resp BP Pulse Ox 05/30/19 15:13 79 20 90 L 05/30/19 11:08 81 20 93 L 05/30/19 09:19 79 123/67 05/30/19 09:00 94 L 05/30/19 07:21 94 L 05/30/19 07:19 79 20 94 L Weight Admit Weight 488 lb 9.6 oz Weight 351 lb Most Recent Monitor Data Heart Rate from ECG 84 NIBP 137/71 NIBP BP-Mean 93 Respiration from ECG 22 SpO2 93 I&O: 05/29/19 05/30/19 05/31/19 06:59 06:59 06:59 Intake Total 0 1800 Output Total 1500 1450 Balance -1500 350 Result Diagrams: 05/26/19 05:50 05/29/19 08:51 ROS - Medication Medications: Active Medications Generic Name Dose Route Start Last Admin Trade Name Freq PRN Reason Stop Dose Admin Acetaminophen 650 mg 05/03/19 13:26 05/13/19 21:42 Tylenol Elixir PO 650 mg Q4H PRN Administration Headache/Fever or Pain 1-3 Al Hydroxide/Mg Hydroxide 30 ml 05/07/19 13:34 05/19/19 21:48 Maalox PO 30 ml Q4H PRN Administration Heartburn or Indigestion Albuterol/Ipratropium 3 ml 04/25/19 02:30 05/30/19 15:13 Duoneb NEB 3 ml [id number] RAIN Administration Artificial Tears 0 drop 05/05/19 05:40 05/05/19 05:52 Liquitears 15ml Bottle EA EYE 1 drop PRN PRN Administration Dry Eyes Diltiazem HCl 120 mg 05/18/19 09:00 05/30/19 09:19 Cardizem Cd PO 120 mg DAILY RAIN Administration Docusate Sodium 100 mg 05/07/19 21:00 05/30/19 09:19 Colace Liquid PO 100 mg BID RAIN Administration Dronedarone 400 mg 05/14/19 17:00 05/30/19 09:19 Multaq PO 400 mg BID-WM RAIN Administration Furosemide 40 mg 05/21/19 07:30 05/30/19 09:19 Lasix PO 40 mg DAILY-AC RAIN Administration Pantoprazole Sodium 40 mg 05/08/19 09:00 05/30/19 09:20 Protonix PO 40 mg DAILY RAIN Administration Polyethylene Glycol 17 gm 05/08/19 09:00 05/30/19 09:20 Miralax PO 17 gm DAILY RAIN Administration Sodium Bicarbonate 650 mg 04/29/19 03:10 05/06/19 22:55 Bicarbonate, Sodium PER TUBE 650 mg .PER PROTOCOL PRN Administration ENTERAL TUBE OCCLUSION Sodium Chloride 10 ml 04/28/19 21:00 05/30/19 09:21 Flush - Normal Saline IVF Not Given Q12HR RAIN Sodium Chloride 10 ml 04/28/19 09:44 05/07/19 09:30 Flush - Normal Saline IVF 10 ml PRN PRN Administration Saline Flush Tramadol HCl 50 mg 05/24/19 14:45 05/29/19 21:41 Ultram PO 50 mg Q6H PRN Administration Moderate Pain (4-6) Warfarin Sodium 2.5 mg 05/27/19 17:00 05/29/19 17:12 Coumadin PO 2.5 mg 1700 RAIN Administration - Exam awake alert General - other findings: morbidly obese Eye: PERRL, anicteric sclera ENT: normocephalic atraumatic, moist mucosa Neck: supple, symmetric Heart: RRR Respiratory: no wheezes, no rales, no ronchi Respiratory - other findings: air entry is decreased at the bases Gastrointestinal: soft, non-tender, non-distended, normal bowel sounds Gastrointestinal - other findings: morbidly obese Extremities: no cyanosis Extremeties - other findings: huge lower extremities with lympedema changes. No obvious edema Neurological: CN's grossly intact, no focal deficits Psychiatric: normal affect, A&O x 3 Hosp A/P (1) Acute on chronic respiratory failure with hypoxia and hypercapnia Code(s): J96.21 - ACUTE AND CHRONIC RESPIRATORY FAILURE WITH HYPOXIA; J96.22 - ACUTE AND CHRONIC RESPIRATORY FAILURE WITH HYPERCAPNIA Status: Acute (2) Acute on chronic diastolic ACC/AHA stage C congestive heart failure Code(s): I50.33 - ACUTE ON CHRONIC DIASTOLIC (CONGESTIVE) HEART FAILURE Status : Acute (3) Acute renal failure Status: Acute (4) Hyponatremia Code(s): E87.1 - HYPO-OSMOLALITY AND HYPONATREMIA Status: Acute (5) Atrial flutter Code(s): I48.92 - UNSPECIFIED ATRIAL FLUTTER Status: Acute (6) Volume overload Code(s): E87.70 - FLUID OVERLOAD, UNSPECIFIED Status: Acute (7) HTN (hypertension) Code(s): I10 - ESSENTIAL (PRIMARY) HYPERTENSION Status: Chronic Qualifiers: (8) Lymphedema of both lower extremities Code(s): I89.0 - LYMPHEDEMA, NOT ELSEWHERE CLASSIFIED Status: Chronic (9) Morbid obesity with BMI of 50.0-59.9, adult Code(s): E66.01 - MORBID (SEVERE) OBESITY DUE TO EXCESS CALORIES; Z68.43 - BODY MASS INDEX (BMI) 50-59.9, ADULT Status: Chronic (10) Pickwickian syndrome Code(s): E66.2 - MORBID (SEVERE) OBESITY WITH ALVEOLAR HYPOVENTILATION Status : Chronic (11) Chronic anticoagulation Code(s): Z79.01 - [facility] (CURRENT) USE OF ANTICOAGULANTS Status: Acute (12) Hypomagnesemia Code(s): E83.42 - HYPOMAGNESEMIA Status: Acute (13) Physical deconditioning Code(s): R53.81 - OTHER MALAISE Status: Acute - Plan Replete serum magnesium with magnesium sulphate Continue supportive and PT Wean oxygen as tolerated. Continue diuretic. Awaiting Placement.
[2019-05-30] MEDS: Warfarin Sodium 2 MG TAB PO SCH (17:48)
[2019-05-31 06:09] LABS: INR-International Normal Ratio 1.5; Prothrombin Time 18.2 SEC (12.0-14.7)
[2019-05-31] MEDS: Docusate Sodium 100 MG/10 ML UDCUP PO SCH ×2 (08:43→20:09)
[2019-05-31] MEDS: Furosemide 40 MG TAB PO SCH (08:43)
[2019-05-31] MEDS: Dronedarone HCl 400 MG TAB PO SCH ×2 (08:43→16:25)
[2019-05-31] MEDS: Polyethylene Glycol 3350 17 GM Packet PO SCH (08:43)
--- NOTE | 2019-05-31 14:13 | PDOC.HOSPP ---
- Subjective Encounter Date: 05/31/19 Encounter Time: 10:31 Subjective: 48 y/o morbidly obese male with chronic bilateral lower extremity lymphedema admitted with acute mental status change. Also found to have acute on chronic respiratory failure with hypercarbia and hypoxia as well as hyponatremia. Treated with non invasive respiratory support with improvement. Now off high flow oxygen and on nasal cannula oxygen. No new problem. Working with PT. Awaiting placement. - Objective Vital Signs & Weight: Vital Signs (12 hours) Temp Pulse Resp BP BP Pulse Ox 05/31/19 10:17 80 16 05/31/19 08:43 87 114/69 05/31/19 08:00 92 L 05/31/19 06:54 98.6 F 87 19 114/69 92 L 05/31/19 06:18 82 16 96 Weight Admit Weight 488 lb 9.6 oz Weight 346 lb 4 oz Most Recent Monitor Data Heart Rate from ECG 84 NIBP 137/71 NIBP BP-Mean 93 Respiration from ECG 22 SpO2 93 I&O: 05/30/19 05/31/19 06/01/19 06:59 06:59 06:59 Intake Total 1800 1740 480 Output Total 1450 2410 1850 Balance 350 -670 -1370 Result Diagrams: 05/26/19 05:50 05/29/19 08:51 ROS - Medication Medications: Active Medications Generic Name Dose Route Start Last Admin Trade Name Freq PRN Reason Stop Dose Admin Acetaminophen 650 mg 05/03/19 13:26 05/13/19 21:42 Tylenol Elixir PO 650 mg Q4H PRN Administration Headache/Fever or Pain 1-3 Al Hydroxide/Mg Hydroxide 30 ml 05/07/19 13:34 05/19/19 21:48 Maalox PO 30 ml Q4H PRN Administration Heartburn or Indigestion Albuterol/Ipratropium 3 ml 04/25/19 02:30 05/31/19 10:17 Duoneb NEB 3 ml [id number] RAIN Administration Artificial Tears 0 drop 05/05/19 05:40 05/05/19 05:52 Liquitears 15ml Bottle EA EYE 1 drop PRN PRN Administration Dry Eyes Diltiazem HCl 120 mg 05/18/19 09:00 05/31/19 08:43 Cardizem Cd PO 120 mg DAILY RAIN Administration Docusate Sodium 100 mg 05/07/19 21:00 05/31/19 08:43 Colace Liquid PO Not Given BID RAIN Dronedarone 400 mg 05/14/19 17:00 05/31/19 08:43 Multaq PO 400 mg BID-WM RAIN Administration Furosemide 40 mg 05/21/19 07:30 05/31/19 08:43 Lasix PO 40 mg DAILY-AC RAIN Administration Pantoprazole Sodium 40 mg 05/08/19 09:00 05/31/19 08:43 Protonix PO 40 mg DAILY RAIN Administration Polyethylene Glycol 17 gm 05/08/19 09:00 05/31/19 08:43 Miralax PO Not Given DAILY RAIN Sodium Bicarbonate 650 mg 04/29/19 03:10 05/06/19 22:55 Bicarbonate, Sodium PER TUBE 650 mg .PER PROTOCOL PRN Administration ENTERAL TUBE OCCLUSION Sodium Chloride 10 ml 04/28/19 21:00 05/31/19 08:43 Flush - Normal Saline IVF 10 ml Q12HR RAIN Administration Sodium Chloride 10 ml 04/28/19 09:44 05/07/19 09:30 Flush - Normal Saline IVF 10 ml PRN PRN Administration Saline Flush Tramadol HCl 50 mg 05/24/19 14:45 05/29/19 21:41 Ultram PO 50 mg Q6H PRN Administration Moderate Pain (4-6) Warfarin Sodium 2.5 mg 05/27/19 17:00 05/30/19 17:48 Coumadin PO 2.5 mg 1700 RAIN Administration - Exam awake alert Eye: PERRL, anicteric sclera ENT: normocephalic atraumatic Neck: supple Heart: RRR Respiratory: no rales, no ronchi Respiratory - other findings: Fair air entry bilaterally Gastrointestinal: soft, non-tender, non-distended, normal bowel sounds Gastrointestinal - other findings: morbidly obese Extremities: no cyanosis, no edema Extremeties - other findings: large lower extremities with lymphedema changes. No obvious edema Neurological: CN's grossly intact, no focal deficits Psychiatric: normal affect, A&O x 3 Hosp A/P (1) Acute on chronic respiratory failure with hypoxia and hypercapnia Code(s): J96.21 - ACUTE AND CHRONIC RESPIRATORY FAILURE WITH HYPOXIA; J96.22 - ACUTE AND CHRONIC RESPIRATORY FAILURE WITH HYPERCAPNIA Status: Acute (2) Acute on chronic diastolic ACC/AHA stage C congestive heart failure Code(s): I50.33 - ACUTE ON CHRONIC DIASTOLIC (CONGESTIVE) HEART FAILURE Status : Acute (3) Acute renal failure Status: Acute (4) Hyponatremia Code(s): E87.1 - HYPO-OSMOLALITY AND HYPONATREMIA Status: Acute (5) Atrial flutter Code(s): I48.92 - UNSPECIFIED ATRIAL FLUTTER Status: Acute (6) Volume overload Code(s): E87.70 - FLUID OVERLOAD, UNSPECIFIED Status: Acute (7) HTN (hypertension) Code(s): I10 - ESSENTIAL (PRIMARY) HYPERTENSION Status: Chronic Qualifiers: (8) Lymphedema of both lower extremities Code(s): I89.0 - LYMPHEDEMA, NOT ELSEWHERE CLASSIFIED Status: Chronic (9) Morbid obesity with BMI of 50.0-59.9, adult Code(s): E66.01 - MORBID (SEVERE) OBESITY DUE TO EXCESS CALORIES; Z68.43 - BODY MASS INDEX (BMI) 50-59.9, ADULT Status: Chronic (10) Pickwickian syndrome Code(s): E66.2 - MORBID (SEVERE) OBESITY WITH ALVEOLAR HYPOVENTILATION Status : Chronic (11) Chronic anticoagulation Code(s): Z79.01 - [facility]IDENT[facility] (CURRENT) USE OF ANTICOAGULANTS Status: Acute (12) Hypomagnesemia Code(s): E83.42 - HYPOMAGNESEMIA Status: Acute (13) Physical deconditioning Code(s): R53.81 - OTHER MALAISE Status: Acute - Plan Continue supportive and PT Continue diuretic and wean oxygen as tolerated. repeat CBC, BMP and mag in the am. Awaiting Placement. for possible discharge tomorrow
[2019-05-31] MEDS: traMADol HCl 50 MG TAB PO PRN (16:24)
[2019-05-31] MEDS: Warfarin Sodium 2 MG TAB PO SCH (16:25)
[2019-06-01] MEDS: traMADol HCl 50 MG TAB PO PRN ×3 (00:40→22:25)
[2019-06-01 05:51] LABS: #Basophils 0.1 thou/uL (0.0-0.2); #Eosinphils 0.4 thou/uL (0.0-0.7); #Lymphocytes 2.8 thou/uL (1.20-3.40); #Monocytes 1.1 thou/uL (0.11-0.59); #Neutrophils 6.3 thou/uL (1.40-6.50); %Basophils 0.6 % (0.0-1.0); %Eosinophils 3.4 % (0.0-10.0); %Lymphocytes 26.1 % (21.0-51.0); %Monocytes 10.1 % (0.0-10.0); %Neutrophils 59.9 % (42.0-75.0); Mean Corpuscular HGB CONC 32.7 g/dL (32.0-36.0); Mean Corpuscular Hemoglobin 30.2 pg (27.0-31.0); Mean Corpuscular Volume 92.3 fL (78.0-98.0); Mean Platelet Volume 9.4 fL (7.4-10.4); Platelet Count 213 thou/uL (130-400); RBC Distribution Width 14.3 % (11.5-14.5); Red Blood Cell (RBC) Count 3.97 mill/uL (4.70-6.10); White Blood Cell (WBC) Count 10.6 thou/uL (4.8-10.8)
[2019-06-01 05:56] LABS: INR-International Normal Ratio 1.4; Prothrombin Time 17.2 SEC (12.0-14.7)
[2019-06-01 06:15] LABS: Anion Gap 14 mmol/L (10-20); BUN (Urea Nitrogen) 9 mg/dL (8.9-20.6); Calc. Creatinine Clearance 270 mL/min (70-130); Calcium 9.2 mg/dL (7.8-10.44); Carbon Dioxide 25 mmol/L (22-29); Chloride 100 mmol/L (98-107); Estimated GFR-MDRD Greater than 90; Glucose 98 mg/dL (70-105); Magnesium 1.8 mg/dL (1.6-2.6); Potassium 3.7 mmol/L (3.5-5.1); Sodium 135 mmol/L (136-145)
[2019-06-01] MEDS: Furosemide 40 MG TAB PO SCH (09:00)
[2019-06-01] MEDS: Polyethylene Glycol 3350 17 GM Packet PO SCH (09:01)
[2019-06-01] MEDS: Dronedarone HCl 400 MG TAB PO SCH ×2 (09:01→16:27)
[2019-06-01] MEDS: Docusate Sodium 100 MG/10 ML UDCUP PO SCH ×2 (09:02→19:56)
--- NOTE | 2019-06-01 15:30 | PDOC.HOSPP ---
- Subjective Encounter Date: 06/01/19 Encounter Time: 12:28 Subjective: 48 y/o morbidly obese male with chronic bilateral lower extremity lymphedema admitted with acute mental status change. Also found to have acute on chronic respiratory failure with hypercarbia and hypoxia as well as hyponatremia. Treated with non invasive respiratory support with improvement. Now off high flow oxygen and on nasal cannula oxygen. No new problem. Ambulating with walker. Awaiting placement. - Objective Vital Signs & Weight: Vital Signs (12 hours) Temp Pulse Pulse Resp BP BP Pulse Ox 06/01/19 14:15 88 16 91 L 06/01/19 10:49 105 H 06/01/19 10:34 83 16 95 06/01/19 09:10 95 06/01/19 09:00 83 135/67 06/01/19 07:58 98.1 F 83 18 135/67 95 06/01/19 06:50 74 16 94 L Pulse Ox 06/01/19 14:15 06/01/19 10:49 87 L 06/01/19 10:34 06/01/19 09:10 06/01/19 09:00 06/01/19 07:58 06/01/19 06:50 Weight Admit Weight 488 lb 9.6 oz Weight 339 lb 12.8 oz Most Recent Monitor Data Heart Rate from ECG 84 NIBP 137/71 NIBP BP-Mean 93 Respiration from ECG 22 SpO2 93 I&O: 05/31/19 06/01/19 06/02/19 06:59 06:59 06:59 Intake Total 1740 1700 Output Total 2410 6035 Balance -542 -5230 Result Diagrams: 06/01/19 05:27 06/01/19 05:27 ROS - Medication Medications: Active Medications Generic Name Dose Route Start Last Admin Trade Name Freq PRN Reason Stop Dose Admin Acetaminophen 650 mg 05/03/19 13:26 05/13/19 21:42 Tylenol Elixir PO 650 mg Q4H PRN Administration Headache/Fever or Pain 1-3 Al Hydroxide/Mg Hydroxide 30 ml 05/07/19 13:34 05/19/19 21:48 Maalox PO 30 ml Q4H PRN Administration Heartburn or Indigestion Albuterol/Ipratropium 3 ml 04/25/19 02:30 06/01/19 14:15 Duoneb NEB 3 ml [id number] RAIN Administration Artificial Tears 0 drop 05/05/19 05:40 05/05/19 05:52 Liquitears 15ml Bottle EA EYE 1 drop PRN PRN Administration Dry Eyes Diltiazem HCl 120 mg 05/18/19 09:00 06/01/19 09:00 Cardizem Cd PO 120 mg DAILY RAIN Administration Docusate Sodium 100 mg 05/07/19 21:00 06/01/19 09:02 Colace Liquid PO 100 mg BID RAIN Administration Dronedarone 400 mg 05/14/19 17:00 06/01/19 09:01 Multaq PO 400 mg BID-WM RAIN Administration Furosemide 40 mg 05/21/19 07:30 06/01/19 09:00 Lasix PO 40 mg DAILY-AC RAIN Administration Pantoprazole Sodium 40 mg 05/08/19 09:00 06/01/19 09:00 Protonix PO 40 mg DAILY RAIN Administration Polyethylene Glycol 17 gm 05/08/19 09:00 06/01/19 09:01 Miralax PO Not Given DAILY RAIN Sodium Bicarbonate 650 mg 04/29/19 03:10 05/06/19 22:55 Bicarbonate, Sodium PER TUBE 650 mg .PER PROTOCOL PRN Administration ENTERAL TUBE OCCLUSION Sodium Chloride 10 ml 04/28/19 21:00 06/01/19 09:03 Flush - Normal Saline IVF 10 ml Q12HR RAIN Administration Sodium Chloride 10 ml 04/28/19 09:44 05/07/19 09:30 Flush - Normal Saline IVF 10 ml PRN PRN Administration Saline Flush Tramadol HCl 50 mg 05/24/19 14:45 06/01/19 00:40 Ultram PO 50 mg Q6H PRN Administration Moderate Pain (4-6) Warfarin Sodium 2.5 mg 05/27/19 17:00 05/31/19 16:25 Coumadin PO 2.5 mg 1700 RAIN Administration - Exam awake alert Eye: PERRL, anicteric sclera ENT: normocephalic atraumatic Neck: supple, symmetric Heart: RRR Respiratory: no rales, no ronchi Respiratory - other findings: fair air entry bilaterally Gastrointestinal: soft, non-tender, non-distended, normal bowel sounds Gastrointestinal - other findings: morbidly obese Extremities: no edema Extremeties - other findings: huge lower extremities with chronic lymphedema changes Neurological: CN's grossly intact, no focal deficits Musculoskeletal: generalized weakness Psychiatric: normal affect, A&O x 3 Hosp A/P (1) Acute on chronic respiratory failure with hypoxia and hypercapnia Code(s): J96.21 - ACUTE AND CHRONIC RESPIRATORY FAILURE WITH HYPOXIA; J96.22 - ACUTE AND CHRONIC RESPIRATORY FAILURE WITH HYPERCAPNIA Status: Acute (2) Acute on chronic diastolic ACC/AHA stage C congestive heart failure Code(s): I50.33 - ACUTE ON CHRONIC DIASTOLIC (CONGESTIVE) HEART FAILURE Status : Acute (3) Acute renal failure Status: Acute (4) Hyponatremia Code(s): E87.1 - HYPO-OSMOLALITY AND HYPONATREMIA Status: Acute (5) Atrial flutter Code(s): I48.92 - UNSPECIFIED ATRIAL FLUTTER Status: Acute (6) Volume overload Code(s): E87.70 - FLUID OVERLOAD, UNSPECIFIED Status: Acute (7) HTN (hypertension) Code(s): I10 - ESSENTIAL (PRIMARY) HYPERTENSION Status: Chronic Qualifiers: (8) Lymphedema of both lower extremities Code(s): I89.0 - LYMPHEDEMA, NOT ELSEWHERE CLASSIFIED Status: Chronic (9) Morbid obesity with BMI of 50.0-59.9, adult Code(s): E66.01 - MORBID (SEVERE) OBESITY DUE TO EXCESS CALORIES; Z68.43 - BODY MASS INDEX (BMI) 50-59.9, ADULT Status: Chronic (10) Pickwickian syndrome Code(s): E66.2 - MORBID (SEVERE) OBESITY WITH ALVEOLAR HYPOVENTILATION Status : Chronic (11) Chronic anticoagulation Code(s): Z79.01 - [facility] (CURRENT) USE OF ANTICOAGULANTS Status: Acute (12) Hypomagnesemia Code(s): E83.42 - HYPOMAGNESEMIA Status: Acute (13) Physical deconditioning Code(s): R53.81 - OTHER MALAISE Status: Acute - Plan Continue supportive and PT Continue diuretic and wean oxygen as tolerated. Awaiting Placement. For discharge once placement is concluded
[2019-06-01] MEDS: Warfarin Sodium 2 MG TAB PO SCH (16:26)
[2019-06-01] MEDS: Magnesium Oxide 400 MG TAB PO SCH (19:56)
[2019-06-02 06:34] LABS: INR-International Normal Ratio 1.4
[2019-06-02] MEDS: Dronedarone HCl 400 MG TAB PO SCH ×2 (08:27→17:36)
[2019-06-02] MEDS: Magnesium Oxide 400 MG TAB PO SCH ×2 (08:28→19:58)
[2019-06-02] MEDS: Furosemide 40 MG TAB PO SCH (08:28)
[2019-06-02] MEDS: Docusate Sodium 100 MG/10 ML UDCUP PO SCH ×2 (08:28→19:57)
[2019-06-02] MEDS: Polyethylene Glycol 3350 17 GM Packet PO SCH ×2 (08:28→17:43)
[2019-06-02 08:39] VITALS: BMI 46.4
--- NOTE | 2019-06-02 17:05 | PDOC.HOSPP ---
- Subjective Encounter Date: 06/02/19 Encounter Time: 14:04 Subjective: 48 y/o morbidly obese male with chronic bilateral lower extremity lymphedema admitted with acute mental status change. Also found to have acute on chronic respiratory failure with hypercarbia and hypoxia as well as hyponatremia. Treated with non invasive respiratory support with improvement. Now off high flow oxygen and on nasal cannula oxygen. No new problem. Ambulating with walker. - Objective Vital Signs & Weight: Vital Signs (12 hours) Temp Pulse Resp BP BP Pulse Ox 06/02/19 14:46 91 20 94 L 06/02/19 10:30 88 16 92 L 06/02/19 08:30 93 L 06/02/19 08:28 85 157/72 H 06/02/19 07:54 98.1 F 85 22 H 157/72 H 93 L 06/02/19 06:45 91 L 06/02/19 06:43 82 16 92 L Weight Admit Weight 488 lb 9.6 oz Weight 333 lb Most Recent Monitor Data Heart Rate from ECG 84 NIBP 137/71 NIBP BP-Mean 93 Respiration from ECG 22 SpO2 93 I&O: 06/01/19 06/02/19 06/03/19 06:59 06:59 06:59 Intake Total 1700 1540 Output Total 4129 3310 Balance -7185 -2246 Result Diagrams: 06/01/19 05:27 06/01/19 05:27 ROS - Medication Medications: Active Medications Generic Name Dose Route Start Last Admin Trade Name Freq PRN Reason Stop Dose Admin Acetaminophen 650 mg 05/03/19 13:26 05/13/19 21:42 Tylenol Elixir PO 650 mg Q4H PRN Administration Headache/Fever or Pain 1-3 Al Hydroxide/Mg Hydroxide 30 ml 05/07/19 13:34 05/19/19 21:48 Maalox PO 30 ml Q4H PRN Administration Heartburn or Indigestion Albuterol/Ipratropium 3 ml 04/25/19 02:30 06/02/19 14:46 Duoneb NEB 3 ml [id number] RAIN Administration Artificial Tears 0 drop 05/05/19 05:40 05/05/19 05:52 Liquitears 15ml Bottle EA EYE 1 drop PRN PRN Administration Dry Eyes Diltiazem HCl 120 mg 05/18/19 09:00 06/02/19 08:28 Cardizem Cd PO 120 mg DAILY RAIN Administration Docusate Sodium 100 mg 05/07/19 21:00 06/02/19 08:28 Colace Liquid PO 100 mg BID RAIN Administration Dronedarone 400 mg 05/14/19 17:00 06/02/19 08:27 Multaq PO 400 mg BID-WM RAIN Administration Furosemide 40 mg 05/21/19 07:30 06/02/19 08:28 Lasix PO 40 mg DAILY-AC RAIN Administration Magnesium Oxide 400 mg 06/01/19 21:00 06/02/19 08:28 Magnesium Oxide PO 400 mg BID RAIN Administration Pantoprazole Sodium 40 mg 05/08/19 09:00 06/02/19 08:28 Protonix PO 40 mg DAILY RAIN Administration Polyethylene Glycol 17 gm 05/08/19 09:00 06/02/19 08:28 Miralax PO Not Given DAILY [facility] Sodium Bicarbonate 650 mg 04/29/19 03:10 05/06/19 22:55 Bicarbonate, Sodium PER TUBE 650 mg .PER PROTOCOL PRN Administration ENTERAL TUBE OCCLUSION Sodium Chloride 10 ml 04/28/19 21:00 06/02/19 08:29 Flush - Normal Saline IVF 10 ml Q12HR RAIN Administration Sodium Chloride 10 ml 04/28/19 09:44 05/07/19 09:30 Flush - Normal Saline IVF 10 ml PRN PRN Administration Saline Flush Tramadol HCl 50 mg 05/24/19 14:45 06/01/19 22:25 Ultram PO 50 mg Q6H PRN Administration Moderate Pain (4-6) Warfarin Sodium 2.5 mg 05/27/19 17:00 06/01/19 16:26 Coumadin PO 2.5 mg 1700 RAIN Administration - Exam awake alert Eye: PERRL ENT: normocephalic atraumatic Neck: supple, no JVD Heart: RRR Respiratory: no wheezes, no rales, no ronchi Gastrointestinal: soft, non-tender, non-distended, normal bowel sounds Gastrointestinal - other findings: morbidly obese Extremities: no cyanosis Extremeties - other findings: Chronic lymphedema changes noted but no obvious edema Neurological: CN's grossly intact, no focal deficits Psychiatric: normal affect, A&O x 3 Hosp A/P (1) Acute on chronic respiratory failure with hypoxia and hypercapnia Code(s): J96.21 - ACUTE AND CHRONIC RESPIRATORY FAILURE WITH HYPOXIA; J96.22 - ACUTE AND CHRONIC RESPIRATORY FAILURE WITH HYPERCAPNIA Status: Acute (2) Acute on chronic diastolic ACC/AHA stage C congestive heart failure Code(s): I50.33 - ACUTE ON CHRONIC DIASTOLIC (CONGESTIVE) HEART FAILURE Status : Acute (3) Acute renal failure Status: Acute (4) Hyponatremia Code(s): E87.1 - HYPO-OSMOLALITY AND HYPONATREMIA Status: Acute (5) Atrial flutter Code(s): I48.92 - UNSPECIFIED ATRIAL FLUTTER Status: Acute (6) Volume overload Code(s): E87.70 - FLUID OVERLOAD, UNSPECIFIED Status: Acute (7) HTN (hypertension) Code(s): I10 - ESSENTIAL (PRIMARY) HYPERTENSION Status: Chronic Qualifiers: (8) Lymphedema of both lower extremities Code(s): I89.0 - LYMPHEDEMA, NOT ELSEWHERE CLASSIFIED Status: Chronic (9) Morbid obesity with BMI of 50.0-59.9, adult Code(s): E66.01 - MORBID (SEVERE) OBESITY DUE TO EXCESS CALORIES; Z68.43 - BODY MASS INDEX (BMI) 50-59.9, ADULT Status: Chronic (10) Pickwickian syndrome Code(s): E66.2 - MORBID (SEVERE) OBESITY WITH ALVEOLAR HYPOVENTILATION Status : Chronic (11) Chronic anticoagulation Code(s): Z79.01 - [facility] HOME (CURRENT) USE OF ANTICOAGULANTS Status: Acute (12) Hypomagnesemia Code(s): E83.42 - HYPOMAGNESEMIA Status: Acute (13) Physical deconditioning Code(s): R53.81 - OTHER MALAISE Status: Acute - Plan Had a meeting with patient and spouse with case mgt in attendance. 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 Patient unequivocally does not want to go for that amount of time hence he declined the offer with the support of his . we discussed the only other option Home. He has oxygen already at home . He certainly will need walker. We will also set up home health RN/PT for him. He will be discharged tomorrow. patient and spouse are in agreement. Continue supportive and PT Continue diuretic and wean oxygen as tolerated.
[2019-06-02] MEDS ORDERED: Warfarin Sodium 2 MG TAB PO SCH (17:15)
[2019-06-02] MEDS: Warfarin Sodium 2 MG TAB PO SCH (17:36)
[2019-06-03 05:45] LABS: INR-International Normal Ratio 1.4; Prothrombin Time 17.5 SEC (12.0-14.7)
[2019-06-03 06:07] LABS: Albumin 3.4 g/dL (3.5-5.0); Anion Gap 13 mmol/L (10-20); BUN (Urea Nitrogen) 9 mg/dL (8.9-20.6); BUN/Creatinine Ratio 11.25; Calc. Creatinine Clearance 244 mL/min (70-130); Calcium 9.3 mg/dL (7.8-10.44); Carbon Dioxide 27 mmol/L (22-29); Chloride 97 mmol/L (98-107); Estimated GFR-MDRD Greater than 90; Glucose 102 mg/dL (70-105); Phosphorus 5.5 mg/dL (2.3-4.7); Potassium 3.8 mmol/L (3.5-5.1); Sodium 133 mmol/L (136-145)
--- NOTE | 2019-06-03 07:54 | PRG ---
DATE OF SERVICE: 06/03/2019 SUBJECTIVE: The patient is doing reasonably well. He says he is going home today. OBJECTIVE: VITAL SIGNS: Temperature 98.5, pulse 81, respirations 16, O2 saturation 95% on 0.5 L, and blood pressure 128/66. His weight is currently 330 pounds. Of note, he was over 500 pounds at time of admission. HEENT: Unremarkable. NECK: No adenopathy or JVD. LUNGS: Clear anteriorly. CARDIAC: S1 and S2. Regular. ABDOMEN: Obese. EXTREMITIES: No edema. ASSESSMENT: 1. Status post respiratory failure related to overt fluid overload and renal failure. 2. Atrial flutter. 3. Likely some degree of obesity hypoventilation syndrome. PLAN: I have asked him to follow up in the office in 3 to 4 weeks. At some point, he will need a sleep study. Very impressive that he has lost 170 pounds of weight during his hospitalization. Job ID: [id number]
[2019-06-03] MEDS: Polyethylene Glycol 3350 17 GM Packet PO SCH (08:22)
[2019-06-03] MEDS: Docusate Sodium 100 MG/10 ML UDCUP PO SCH (08:22)
[2019-06-03] MEDS: Furosemide 40 MG TAB PO SCH (08:22)
[2019-06-03] MEDS: Dronedarone HCl 400 MG TAB PO SCH (08:22)
[2019-06-03] MEDS: Magnesium Oxide 400 MG TAB PO SCH (08:22)
[2019-06-03 11:07] VITALS: BP 120/73; TEMP 98.1
[2019-06-03] MEDS: traMADol HCl 50 MG TAB PO PRN (12:08)
--- NOTE | 2019-06-03 14:29 | DIS ---
DATE OF ADMISSION: 04/24/2019 DATE OF DISCHARGE: 06/03/2019 PRIMARY CARE PHYSICIAN: Dr. Tee Villalobos. DISCHARGE DIAGNOSES: 1. Fboao-bf-gjmrhpd respiratory failure with hypoxia and hypercapnia. 2. Daili-ab-pxjywef diastolic heart failure. 3. Acute renal failure, requiring hemodialysis. 4. Hyponatremia. 5. Atrial flutter with rapid ventricular response. 6. Atrial fibrillation with rapid ventricular response. 7. Status post ablation. 8. Volume overload. 9. Hypertension. 10. Chronic lymphedema of both lower extremities. 11. Morbid obesity with BMI of 50 to 59. 12. Pickwickian syndrome. 13. Hypomagnesemia. 14. Physical deconditioning. 15. Chronic anticoagulation. CONSULTS: 1. Nephrology. 2. Pulmonary and Critical Care. 3. General Surgery. 4. Cardiology. 5. Electrophysiology. PROCEDURES PERFORMED: 1. Temporary dialysis catheter placement. 2. Removal of temporary femoral dialysis catheter. 3. Tunneled hemodialysis catheter placement. 4. Removal of tunneled hemodialysis catheter. 5. LO cardioversion. 6. Electrophysiology study and radiofrequency ablation. HOSPITAL COURSE: A 48-year-old morbidly obese male with known history of chronic respiratory failure, chronic bilateral lower extremity lymphedema, was admitted with acute mental status change. The patient was found to have ahjlt-mw-knapyue respiratory failure with hypercarbia and hypoxia as well as severe hyponatremia. This was felt to be due to rivgj-lp-jraehfl diastolic heart failure. There was also a concern for possible pneumonia. The patient also was found to have acute kidney injury. The patient initially was started on noninvasive respiratory support, oxygen supplementation, antibiotics, and diuretics. He improved, and noninvasive respiratory support was weaned off to high flow, high humidity oxygen. Hospital course was however complicated by development of acute renal failure and volume overload, that is resistant to diuretics, hence the patient was started on hemodialysis. Acute kidney injury was felt to be due to ATN as he also developed hypotension. He however made a remarkable recovery in his renal function and dialysis was weaned off and creatinine trended downwards to another of 0.75. The patient also was felt to have some component of COPD exacerbation and was treated with bronchodilators and steroids. Hospital course also was complicated by development of atrial flutter and atrial fibrillation with rapid ventricular response. Electrophysiology saw the patient and he had radiofrequency ablation of the atrial flutter, which led to residual atrial fibrillation. The patient was subsequently started on rate, stroke, rhythm control medication, as well as anticoagulation with Coumadin. He was found to be physically deconditioned and received physical therapy with some improvement suggesting he is walking with a walker. He was however felt to be in need of further restorative therapy, and [facility] facility placement was considered. The patient was in agreement; however, due to the product, he has used up all his days and the [facility] could not be reimbursed if we could commit to stay in 30 days, but the patient would not commit to the 30 days required, preferring to go home instead. Arrangement was made for Home Health, and the patient was subsequently discharged home. Of note, respiratory status improved significantly such that the patient was only requiring 0.5 L of oxygen per minute and at times actually on room air. PHYSICAL EXAMINATION: VITAL SIGNS: Temperature 98.1, pulse 86, respiratory rate 20, SpO2 of 92% on room air, blood pressure 120/73. GENERAL: Morbidly obese male, in no obvious distress. Afebrile. Anicteric. Acyanotic. HEENT: Normocephalic, atraumatic. Pupils are reacting to light. CARDIOVASCULAR: Regular rhythm and rate with normal heart sounds 1 and 2. RESPIRATORY: Fair air entry bilaterally with mildly decreased air movement at both bases. No respiratory distress appreciated. GI: Morbidly obese, soft, nontender, nondistended with normal bowel sounds. EXTREMITIES: Huge bilateral lower extremities with chronic lymphedema changes. No obvious edema appreciated. SCHEDULER: Conscious, alert, oriented x3 with appropriate mental status. Cranial nerves 2 through 12 are grossly intact. DISCHARGE DISPOSITION: Home with Home Health. DISCHARGE CONDITION: Improved. FOLLOWUP: Follow up; 1. With Pulmonary in 3 to 4 weeks. 2. With EPS in 3 to 4 weeks. 3. With primary care physician in 3 days. 4. With Cardiology in 1 to 2 weeks. DISCHARGE MEDICATIONS: 1. Acetaminophen 650 mg q.4 p.r.n. for pain. 2. Aspirin 81 mg p.o. daily. 3. Vitamin D, vitamin B12 of 1000 mcg p.o. daily. 4. Diltiazem 120 mg p.o. daily. 5. Multaq 400 mg p.o. b.i.d. 6. Folic acid 1 mg p.o. daily. 7. Lasix 40 mg p.o. daily. 8. DuoNeb 3 mL nebulization q.4 p.r.n. for shortness of breath. 9. Magnesium oxide 400 mg p.o. b.i.d. 10. Protonix 40 mg p.o. daily. 11. MiraLAX 17 g p.o. daily. 12. Warfarin 4 mg p.o. daily. TIME SPENT: This discharge took more than 45 minutes. Job ID: [id number]
[2019-06-03] MEDS ORDERED: Warfarin Sodium 3 MG TAB PO SCH (17:00)
== END 2019-06-03 13:25 | disposition home health service (06) | DRG 273 ==
LOC: ERS 21:48 → CCU 23:30 → IMCU/EMU 05-09 11:51 → CCU 05-11 18:09 → IMCU/EMU 05-13 10:38 → T4-A 05-28 00:01
PROVIDERS: ADMIT Hospitalist; ATTEND Hospitalist
PROC: 02HV33Z Insertion of Infusion Device into Superior Vena Cava, Percutaneous Approach (ICD-10-PCS; 2019-05-01)
PROC: B548ZZA Ultrasonography of Superior Vena Cava, Guidance (ICD-10-PCS; 2019-05-01)
PROC: 0JH63XZ Insertion of Tunneled Vascular Access Device into Chest Subcutaneous Tissue and Fascia, Percutaneous Approach (ICD-10-PCS; 2019-05-07)
PROC: 02HV33Z Insertion of Infusion Device into Superior Vena Cava, Percutaneous Approach (ICD-10-PCS; 2019-05-07)
PROC: B548ZZA Ultrasonography of Superior Vena Cava, Guidance (ICD-10-PCS; 2019-05-07)
PROC: B5180ZA Fluoroscopy of Superior Vena Cava using High Osmolar Contrast, Guidance (ICD-10-PCS; 2019-05-07)
PROC: 5A1935Z Respiratory Ventilation, Less than 24 Consecutive Hours (ICD-10-PCS; 2019-05-08)
PROC: 02583ZZ Destruction of Conduction Mechanism, Percutaneous Approach (ICD-10-PCS; 2019-05-11)
PROC: 02K83ZZ Map Conduction Mechanism, Percutaneous Approach (ICD-10-PCS; 2019-05-11)
PROC: 4A023FZ Measurement of Cardiac Rhythm, Percutaneous Approach (ICD-10-PCS; 2019-05-11)
PROC: 4A0234Z Measurement of Cardiac Electrical Activity, Percutaneous Approach (ICD-10-PCS; 2019-05-11)
PROC: 5A1D70Z Performance of Urinary Filtration, Intermittent, Less than 6 Hours Per Day (ICD-10-PCS; 2019-05-13)
PROC: 5A1955Z Respiratory Ventilation, Greater than 96 Consecutive Hours (ICD-10-PCS; principal; 2019-05-18)
PROC: 0BH17EZ Insertion of Endotracheal Airway into Trachea, Via Natural or Artificial Opening (ICD-10-PCS; 2019-05-18)
PROC: 0JPT3XZ Removal of Tunneled Vascular Access Device from Trunk Subcutaneous Tissue and Fascia, Percutaneous Approach (ICD-10-PCS; 2019-05-26)
PROC: 02PYX3Z Removal of Infusion Device from Great Vessel, External Approach (ICD-10-PCS; 2019-05-26)
DX: I13.0 Hypertensive heart and chronic kidney disease with heart failure and stage 1 through stage 4 chronic kidney disease, or unspecified chronic kidney disease (principal); J96.22 Acute and chronic respiratory failure with hypercapnia; N17.0 Acute kidney failure with tubular necrosis; I50.33 Acute on chronic diastolic (congestive) heart failure; N18.6 End stage renal disease; J96.21 Acute and chronic respiratory failure with hypoxia; E87.1 Hypo-osmolality and hyponatremia; I48.92 Unspecified atrial flutter; Z68.43 Body mass index [BMI] 50.0-59.9, adult; E66.2 Morbid (severe) obesity with alveolar hypoventilation; N18.4 Chronic kidney disease, stage 4 (severe); Z68.42 Body mass index [BMI] 45.0-49.9, adult; E87.3 Alkalosis; I47.1 Supraventricular tachycardia; Z51.5 Encounter for palliative care; E87.70 Fluid overload, unspecified; J44.9 Chronic obstructive pulmonary disease, unspecified; D63.1 Anemia in chronic kidney disease; E87.5 Hyperkalemia; E87.8 Other disorders of electrolyte and fluid balance, not elsewhere classified; F17.210 Nicotine dependence, cigarettes, uncomplicated; I48.0 Paroxysmal atrial fibrillation; I89.0 Lymphedema, not elsewhere classified; E78.5 Hyperlipidemia, unspecified; E83.42 Hypomagnesemia; Z99.2 Dependence on renal dialysis; Z79.01 Long term (current) use of anticoagulants; Z90.49 Acquired absence of other specified parts of digestive tract
CPT/HCPCS: 36415; 36416; 51702; 71045; 76942; 80048; 80053; 80069; 80202; 81003; 81015; 82140; 82553; 82805; 83605; 83735; 83880; 84145; 84484; 85014; 85018; 85025; 85610; 85730; 86580; 86704; 86706; 86803; 87040; 87340; 90935; 93005; 93010; 93312; 93613; 93623; 93653; 93798; 93923; 93970; 94002; 94003; 94640; 94660; 96360; 96374; 96375; C1730; C1732; C1752; C1769; C9113; G0257; G0365; J0456; J0692; J1160; J1265; J1644; J1650; J1815; J1940; J2001; J2060; J2270; J2370; J2704; J2920; J3010; J3370; J3475; J3490; J7050; J7512; J7620

== ENCOUNTER 2019-06-22 02:22 | Inpatient (IN) | payer OTHER ==
[2019-06-22 03:16] LABS: #Eosinphils 0.1 thou/uL (0.0-0.7); #Monocytes 0.6 thou/uL (0.11-0.59); #Neutrophils 5.3 thou/uL (1.40-6.50); %Basophils 0.6 % (0.0-1.0); %Eosinophils 1.1 % (0.0-10.0); %Neutrophils 66.4 % (42.0-75.0); Hemoglobin 7.8 g/dL (14.0-18.0); Mean Corpuscular HGB CONC 35.3 g/dL (32.0-36.0); Mean Corpuscular Hemoglobin 32.3 pg (27.0-31.0); Mean Corpuscular Volume 91.6 fL (78.0-98.0); Mean Platelet Volume 8.1 fL (7.4-10.4); Platelet Count 178 thou/uL (130-400); RBC Distribution Width 15.9 % (11.5-14.5); Red Blood Cell (RBC) Count 2.41 mill/uL (4.70-6.10); White Blood Cell (WBC) Count 7.9 thou/uL (4.8-10.8)
[2019-06-22 03:24] LABS: PTT 112.6 SEC (22.9-36.1)
[2019-06-22 03:31] LABS: Prothrombin Time 73.7 SEC (12.0-14.7)
[2019-06-22 03:36] LABS: INR-International Normal Ratio 9.2
[2019-06-22 04:22] LABS: Albumin 3.3 g/dL (3.5-5.0)
[2019-06-22 04:23] LABS: Chloride 95 mmol/L (98-107); Potassium 4.1 mmol/L (3.5-5.1); Sodium 133 mmol/L (136-145)
[2019-06-22 04:24] LABS: Calcium 8.5 mg/dL (7.8-10.44); Glucose 108 mg/dL (70-105)
[2019-06-22 04:25] LABS: Globulin 2.2 g/dL (2.4-3.5); Protein, Total 5.5 g/dL (6.0-8.3)
[2019-06-22 04:26] LABS: Bilirubin, Total 1.1 mg/dL (0.2-1.2); Carbon Dioxide 26 mmol/L (22-29)
[2019-06-22 04:27] LABS: Alkaline Phosphatase 70 U/L (40-150)
[2019-06-22 04:28] LABS: BUN (Urea Nitrogen) 25 mg/dL (8.9-20.6); Calc. Creatinine Clearance 0 mL/min (70-130); Estimated GFR-MDRD Greater than 90
[2019-06-22 04:30] LABS: ALT (SGPT) 17 U/L (8-55); AST (SGOT) 27 U/L (5-34)
[2019-06-22 04:32] LABS: Anion Gap 16 mmol/L (10-20)
[2019-06-22] MEDS ORDERED: Phytonadione 10 MG/ML AMP PO SCH (05:15)
--- NOTE | 2019-06-22 07:31 | CT ---
PRELIMINARY REPORT/[facility]/EMERGENCY AFTER HOURS PROCEDURE: EXAM: CT Head Without Contrast EXAM DATE/TIME: 06/22/2019 2:56 AM CLINICAL HISTORY: 48 years old, male; Syncope and collapse; Patient HX: M48 presents to ED for fainting. PT reports las t thing he remembered was sitting on edge of bed, became lightheaded, then loc falling onto floor. Pt 's family reports his hands were shaking, similar to seizing. PT is able to move and feel all extremities. PT reports multiple episodes of diarrhea, black in color. PT was in hospital for 1.5 mon ths for kidney, heart lung failure, was on ventilator, discharged to home 2 weeks ago. On oxygen at h ome. Denies any new chest pain or new SOB. Hx- chf, recent oblation done; On blood thinner. TECHNIQUE: Imaging protocol: Computed tomography of the head without contrast. COMPARISON: No relevant prior studies available. FINDINGS: Brain: No mass, hemorrhage, or acute infarction. Ventricles: Normal. Bones/joints: Normal. Sinuses: Minimal ethmoid sinus disease. Mastoid air cells: Normal as visualized. Soft tissues: Unremarkable. Vasculature: Atherosclerotic vascular calcifications. IMPRESSION: No acute intracranial abnormality. Thank you for allowing us to participate in the care of your patient. Dictated and Authenticated by: Elvis Wiseman MD 06/22/2019 3:08 AM Central Time ([place] & [place]) FINAL REPORT BRAIN CT WITHOUT IV CONTRAST: EMERGENT AFTER HOURS EXAM TIME: 2:57 a.m. DATE: 06/22/2019. No mass or bleed or other acute process. This report is in agreement with the preliminary report. POS: [facility]
--- NOTE | 2019-06-22 09:05 | RAD ---
CHEST 1 VIEW PORTABLE: Date: 06/22/19 HISTORY: Dizziness and bloody stool. Patient on blood thinners. COMPARISON: 05/20/19. FINDINGS: Minimal increased markings bilaterally, but definitely improvement in the previously noted interstiti al and alveolar opacity changes from the prior study. Exam is somewhat limited by large body habitus. No confluent pneumonia, overt edema, or pleural effusion. IMPRESSION: Increased markings bilaterally. Improvement from prior study. No significant new process. POS: [facility]
[2019-06-22] MEDS ORDERED: Senokot S 8.6-50 MG TAB PO PRN (12:13)
[2019-06-22] MEDS ORDERED: Dextrose 5% in Water 1,000 ML IV PRN (12:13)
[2019-06-22] MEDS ORDERED: Guaifenesin DM 100-10/5 ML UDCUP PO PRN (12:13)
[2019-06-22] MEDS ORDERED: Acetaminophen 325 MG TAB PO PRN (12:13)
[2019-06-22] MEDS ORDERED: HumaLOG 300 UNITS/3 ML VIAL SC PRN ×2 (12:13)
[2019-06-22] MEDS ORDERED: Dextrose 50% Abboject 50 ML SYRINGE SLOW IVP PRN (12:13)
[2019-06-22] MEDS ORDERED: Bisacodyl 10 MG SUPP PR PRN (12:13)
[2019-06-22 12:34] LABS: Hemoglobin 6.7 g/dL (14.0-18.0)
[2019-06-22 12:43] LABS: PTT 100.1 SEC (22.9-36.1)
[2019-06-22] MEDS ORDERED: ADMIXTURE FEE IV SCH (15:15)
[2019-06-22] MEDS ORDERED: HUMAN PROTHROMBIN COMPLX IV SCH (15:15)
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
[2019-06-22 16:58] VITALS: BMI 50.7
[2019-06-22] MEDS: Dronedarone HCl 400 MG TAB PO SCH (17:25)
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
[2019-06-22 18:42] LABS: Hemoglobin 6.1 g/dL (14.0-18.0)
[2019-06-22] MEDS ORDERED: Magnesium Oxide 400 MG TAB PO SCH (21:00)
[2019-06-23 01:27] LABS: Hemoglobin 6.8 g/dL (14.0-18.0)
[2019-06-23] MEDS ORDERED: Sodium Chloride 0.9% 500 ML IV SCH (02:00)
[2019-06-23 05:12] LABS: #Eosinphils 0.1 thou/uL (0.0-0.7); #Lymphocytes 2.6 thou/uL (1.20-3.40); #Monocytes 0.5 thou/uL (0.11-0.59); #Neutrophils 3.4 thou/uL (1.40-6.50); %Basophils 0.5 % (0.0-1.0); %Eosinophils 1.5 % (0.0-10.0); %Lymphocytes 39.7 % (21.0-51.0); %Monocytes 7.1 % (0.0-10.0); %Neutrophils 51.2 % (42.0-75.0); Hemoglobin 6.8 g/dL (14.0-18.0); Mean Corpuscular HGB CONC 35.1 g/dL (32.0-36.0); Mean Corpuscular Hemoglobin 32.4 pg (27.0-31.0); Mean Corpuscular Volume 92.3 fL (78.0-98.0); Mean Platelet Volume 8.6 fL (7.4-10.4); Platelet Count 133 thou/uL (130-400); RBC Distribution Width 16.6 % (11.5-14.5); Red Blood Cell (RBC) Count 2.08 mill/uL (4.70-6.10); White Blood Cell (WBC) Count 6.6 thou/uL (4.8-10.8)
[2019-06-23 05:22] LABS: Prothrombin Time 31.1 SEC (12.0-14.7)
[2019-06-23 05:28] LABS: Anion Gap 9 mmol/L (10-20); BUN (Urea Nitrogen) 18 mg/dL (8.9-20.6); Calc. Creatinine Clearance 247 mL/min (70-130); Calcium 8.5 mg/dL (7.8-10.44); Carbon Dioxide 28 mmol/L (22-29); Chloride 98 mmol/L (98-107); Estimated GFR-MDRD Greater than 90; Glucose 103 mg/dL (70-105); Potassium 3.4 mmol/L (3.5-5.1); Sodium 132 mmol/L (136-145)
[2019-06-23] MEDS ORDERED: Phytonadione 5 MG in Sodium Chloride 0.9% 50 ML IVPB SCH (08:30)
[2019-06-23] MEDS: Folic Acid 1 MG TAB PO SCH (08:45)
[2019-06-23] MEDS: Cyanocobalamin (Vitamin B-12) 1,000 MCG TAB PO SCH (08:45)
[2019-06-23] MEDS: Dronedarone HCl 400 MG TAB PO SCH ×2 (08:46→16:26)
[2019-06-23] MEDS: Furosemide 40 MG TAB PO SCH (08:46)
[2019-06-23] MEDS ORDERED: Aspirin 81 mg Enteric Coated Tablet PO SCH (09:00)
[2019-06-23] MEDS ORDERED: Polyethylene Glycol 3350 17 GM Packet PO SCH (09:00)
[2019-06-23] MEDS: traMADol HCl 50 MG TAB PO PRN ×2 (11:40→23:46)
--- NOTE | 2019-06-23 13:08 | PDOC.HOSPP ---
- Subjective Subjective: Seen and examined. Resting in bed in no acute distress. No BM since yesterday, though he states yesterday it was black. Having no abdominal pain at this time. No nausea, no vomiting. Does have chronic pains, requests Tramadol. - Objective Vital Signs & Weight: Vital Signs (12 hours) Temp Pulse Pulse Resp BP BP BP 06/23/19 11:50 97.7 F 82 18 127/58 L 06/23/19 11:37 97.8 F 82 18 123/57 L 06/23/19 08:45 82 120/58 L 06/23/19 08:15 97.3 F L 95 20 109/53 L 06/23/19 05:00 96.5 F L 90 18 120/53 L 06/23/19 04:00 97.8 F 92 18 94/43 L 06/23/19 01:46 98.1 F 87 18 106/53 L Pulse Ox 06/23/19 11:50 98 06/23/19 11:37 100 06/23/19 08:45 06/23/19 08:15 97 06/23/19 05:00 96 06/23/19 04:00 99 06/23/19 01:46 98 Weight Admit Weight 333 lb 6.4 oz Weight 333 lb 6.4 oz I&O: 06/22/19 06/23/19 06/24/19 06:59 06:59 06:59 Intake Total 850 367 Output Total 400 Balance 450 367 Result Diagrams: 06/23/19 04:43 06/23/19 04:43 Additional Labs: Accuchecks 06/23/19 06/23/19 06/22/19 11:12 06:28 22:10 POC Glucose 97 107 111 H Hospitalist ROS - Review of Systems All other systems reviewed; all pertinent +/- noted in HPI/Subj - Medication Medications: Active Medications Generic Name Dose Route Start Last Admin Trade Name Freq PRN Reason Stop Dose Admin Aspirin 81 mg 06/23/19 09:00 06/23/19 08:46 Ecotrin PO 81 mg DAILY RAIN Administration Cyanocobalamin 1,000 mcg 06/23/19 09:00 06/23/19 08:45 Vitamin B-12 PO 1,000 mcg DAILY RAIN Administration Diltiazem HCl 120 mg 06/23/19 09:00 06/23/19 08:45 Cardizem Cd PO 120 mg DAILY RAIN Administration Dronedarone 400 mg 06/22/19 17:00 06/23/19 08:46 Multaq PO 400 mg BID-WM RAIN Administration Folic Acid 1 mg 06/23/19 09:00 06/23/19 08:45 Folvite PO 1 mg DAILY RAIN Administration Furosemide 40 mg 06/23/19 09:00 06/23/19 08:46 Lasix PO 40 mg DAILY RAIN Administration Pantoprazole Sodium 40 mg 06/22/19 21:00 06/23/19 08:46 Protonix PO 40 mg BID RAIN Administration Sodium Chloride 10 ml 06/22/19 14:42 06/23/19 08:47 Flush - Normal Saline IVF 10 ml PRN PRN Administration Saline Flush Tramadol HCl 50 mg 06/23/19 09:57 06/23/19 11:40 Ultram PO 50 mg Q6H PRN Administration Moderate to Severe Pain (6-10) - Exam General Appearance: NAD, awake alert Eye: PERRL, anicteric sclera Eye - other findings: EOMI ENT: no oropharyngeal lesions, moist mucosa Neck: supple, symmetric, no lymphadenopathy Heart: RRR, no murmur, no gallops, no rubs Respiratory: CTAB, no wheezes, no rales, no ronchi, normal chest expansion Gastrointestinal: soft, non-tender, non-distended, no palpable masses, no guarding, no rigidity Extremeties - other findings: +4 LE edema is chronic with chronic skin changes Skin - other findings: chronic skin changes LE with lymphedema. Improved per patient Neurological: CN's grossly intact, no focal deficits Musculoskeletal: normal tone, normal strength Psychiatric: normal affect, A&O x 3 Hosp A/P (1) Acute blood loss anemia Code(s): D62 - ACUTE POSTHEMORRHAGIC ANEMIA Status: Acute (2) GI bleeding Code(s): K92.2 - GASTROINTESTINAL HEMORRHAGE, UNSPECIFIED Status: Acute (3) Coagulopathy Status: Acute (4) Afib Code(s): I48.91 - UNSPECIFIED ATRIAL FIBRILLATION Status: Acute (5) CKD (chronic kidney disease) Code(s): N18.9 - CHRONIC KIDNEY DISEASE, UNSPECIFIED Status: Acute (6) Morbid obesity Code(s): E66.01 - MORBID (SEVERE) OBESITY DUE TO EXCESS CALORIES Status: Acute (7) Leg edema Code(s): R60.0 - LOCALIZED EDEMA Status: Acute (8) Physical deconditioning Code(s): R53.81 - OTHER MALAISE Status: Acute (9) Volume overload Code(s): E87.70 - FLUID OVERLOAD, UNSPECIFIED Status: Acute (10) HTN (hypertension) Code(s): I10 - ESSENTIAL (PRIMARY) HYPERTENSION Status: Chronic Qualifiers: (11) Lymphedema of both lower extremities Code(s): I89.0 - LYMPHEDEMA, NOT ELSEWHERE CLASSIFIED Status: Chronic (12) Macrocytosis Code(s): D75.89 - OTHER SPECIFIED DISEASES OF BLOOD AND BLOOD-FORMING ORGANS Status: Chronic (13) Pickwickian syndrome Code(s): E66.2 - MORBID (SEVERE) OBESITY WITH ALVEOLAR HYPOVENTILATION Status : Chronic - Plan Plan: GI consult, recommendations appreciated Cardiology consult, recommendations appreciated May require endoscopy for definitive diagnosis/ treatment of acute GI bleeding PPI BID Elevated INR, add another dose of Vit K Hgb 6.8 will add another unit of PRBC, total of 3 thusfar Continue home meds as able Pain control DVT PPX
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
[2019-06-24] MEDS: Furosemide 40 MG TAB PO SCH (08:39)
[2019-06-24] MEDS: Folic Acid 1 MG TAB PO SCH (08:39)
[2019-06-24] MEDS: Dronedarone HCl 400 MG TAB PO SCH ×2 (08:40→16:57)
[2019-06-24] MEDS: Cyanocobalamin (Vitamin B-12) 1,000 MCG TAB PO SCH (08:41)
[2019-06-24 09:17] LABS: INR-International Normal Ratio 1.2; Prothrombin Time 14.7 SEC (12.0-14.7)
[2019-06-24 09:22] LABS: #Basophils 0.1 thou/uL (0.0-0.2); #Eosinphils 0.3 thou/uL (0.0-0.7); #Lymphocytes 2.6 thou/uL (1.20-3.40); #Monocytes 0.5 thou/uL (0.11-0.59); #Neutrophils 3.8 thou/uL (1.40-6.50); %Eosinophils 3.8 % (0.0-10.0); %Lymphocytes 35.8 % (21.0-51.0); %Neutrophils 52.4 % (42.0-75.0); Hemoglobin 8.7 g/dL (14.0-18.0); Mean Corpuscular HGB CONC 34.7 g/dL (32.0-36.0); Mean Corpuscular Hemoglobin 32.6 pg (27.0-31.0); Mean Platelet Volume 8.4 fL (7.4-10.4); Platelet Count 170 thou/uL (130-400); RBC Distribution Width 16.7 % (11.5-14.5); Red Blood Cell (RBC) Count 2.67 mill/uL (4.70-6.10); White Blood Cell (WBC) Count 7.2 thou/uL (4.8-10.8)
[2019-06-24 09:25] LABS: Anion Gap 14 mmol/L (10-20); BUN (Urea Nitrogen) 12 mg/dL (8.9-20.6); Calc. Creatinine Clearance 274 mL/min (70-130); Calcium 8.6 mg/dL (7.8-10.44); Carbon Dioxide 23 mmol/L (22-29); Chloride 99 mmol/L (98-107); Estimated GFR-MDRD Greater than 90; Glucose 102 mg/dL (70-105); Potassium 3.5 mmol/L (3.5-5.1); Sodium 132 mmol/L (136-145)
[2019-06-24] MEDS: traMADol HCl 50 MG TAB PO PRN ×2 (13:18→21:20)
--- NOTE | 2019-06-24 14:04 | PDOC.HOSPP ---
- Subjective Subjective: Seen and examined. Patient has not had any further BM. Blood counts improving. Patient refused any endoscopy or any procedures. Denies abdominal pain. Tolerating diet. No acute overnight events. No new complaints. Patient would like to go home. - Objective Vital Signs & Weight: Vital Signs (12 hours) Temp Pulse Resp BP Pulse Ox 06/24/19 13:10 97.6 F 86 16 111/55 L 94 L 06/24/19 08:00 100 06/24/19 07:26 97.7 F 75 18 125/60 100 06/24/19 04:00 97.7 F 76 18 115/58 L 98 Weight Admit Weight 333 lb 6.4 oz Weight 336 lb 4.8 oz I&O: 06/23/19 06/24/19 06/25/19 06:59 06:59 06:59 Intake Total 850 1087 Output Total 400 325 Balance 450 762 Result Diagrams: 06/24/19 08:49 06/24/19 08:49 Additional Labs: Accuchecks 06/24/19 06/23/19 06/23/19 05:47 20:38 16:36 POC Glucose 97 113 H 117 H Hospitalist ROS - Medication Medications: Active Medications Generic Name Dose Route Start Last Admin Trade Name Freq PRN Reason Stop Dose Admin Cyanocobalamin 1,000 mcg 06/23/19 09:00 06/24/19 08:41 Vitamin B-12 PO 1,000 mcg DAILY RAIN Administration Diltiazem HCl 120 mg 06/23/19 09:00 06/24/19 08:41 Cardizem Cd PO 120 mg DAILY RAIN Administration Dronedarone 400 mg 06/22/19 17:00 06/24/19 08:40 Multaq PO 400 mg BID-WM RAIN Administration Folic Acid 1 mg 06/23/19 09:00 06/24/19 08:39 Folvite PO 1 mg DAILY RAIN Administration Furosemide 40 mg 06/23/19 09:00 06/24/19 08:39 Lasix PO 40 mg DAILY RAIN Administration Pantoprazole Sodium 40 mg 06/22/19 21:00 06/24/19 08:40 Protonix PO 40 mg BID RAIN Administration Sodium Chloride 10 ml 06/22/19 14:42 06/23/19 08:47 Flush - Normal Saline IVF 10 ml PRN PRN Administration Saline Flush Tramadol HCl 50 mg 06/23/19 09:57 06/24/19 13:18 Ultram PO 50 mg Q6H PRN Administration Moderate to Severe Pain (6-10) - Exam General Appearance: NAD, awake alert Eye: anicteric sclera Eye - other findings: EOMI ENT: no oropharyngeal lesions, moist mucosa Neck: supple, symmetric, no lymphadenopathy Heart: RRR, no murmur, no gallops, no rubs, normal peripheral pulses Respiratory: CTAB, no wheezes, no rales, no ronchi Gastrointestinal: soft, non-tender, non-distended, normal bowel sounds, no guarding, no rigidity Extremeties - other findings: +4 LE edema at baseline Skin - other findings: Chronic LE skin changes with lymphedema Neurological: CN's grossly intact, no new deficit Musculoskeletal: generalized weakness Psychiatric: normal affect, A&O x 3 Hosp A/P (1) Acute blood loss anemia Code(s): D62 - ACUTE POSTHEMORRHAGIC ANEMIA Status: Acute (2) GI bleeding Code(s): K92.2 - GASTROINTESTINAL HEMORRHAGE, UNSPECIFIED Status: Acute (3) Coagulopathy Status: Acute (4) Afib Code(s): I48.91 - UNSPECIFIED ATRIAL FIBRILLATION Status: Acute (5) CKD (chronic kidney disease) Code(s): N18.9 - CHRONIC KIDNEY DISEASE, UNSPECIFIED Status: Acute (6) Morbid obesity Code(s): E66.01 - MORBID (SEVERE) OBESITY DUE TO EXCESS CALORIES Status: Acute (7) Leg edema Code(s): R60.0 - LOCALIZED EDEMA Status: Acute (8) Physical deconditioning Code(s): R53.81 - OTHER MALAISE Status: Acute (9) Volume overload Code(s): E87.70 - FLUID OVERLOAD, UNSPECIFIED Status: Acute (10) HTN (hypertension) Code(s): I10 - ESSENTIAL (PRIMARY) HYPERTENSION Status: Chronic Qualifiers: (11) Lymphedema of both lower extremities Code(s): I89.0 - LYMPHEDEMA, NOT ELSEWHERE CLASSIFIED Status: Chronic (12) Macrocytosis Code(s): D75.89 - OTHER SPECIFIED DISEASES OF BLOOD AND BLOOD-FORMING ORGANS Status: Chronic (13) Pickwickian syndrome Code(s): E66.2 - MORBID (SEVERE) OBESITY WITH ALVEOLAR HYPOVENTILATION Status : Chronic - Plan Plan: GI consult, recommendations appreciated Cardiology consult, recommendations appreciated Patient refused any endoscopy - May require endoscopy for definitive diagnosis/ treatment of acute GI bleeding PPI BID Elevated INR, now normalized after Vit K Improved Hgb 8.7 after total of 3 units of PRBC, thus far Risk of bleeding at this time outweigh benefits of CVA prevention from Afib - will defer oral anticoagulation to specialist, at this time contraindicated Continue home meds as able Pain control DVT PPX
--- NOTE | 2019-06-24 14:13 | PQF ---
DATE: 06-24-19 ATTN: DR. ANITRA SANTOS Please exercise your independent, professional judgment in responding to the clarification form. Clinical indicators are provided on the bottom of this form for your review Please check appropriate box(s): [ ] Hyponatremia please specify etiology, if known [ XX ] Insignificant Lab Values [ ] Other diagnosis [ ] Unable to determine In addition, please specify: Present on Admission (POA): [ ] Yes [ ] No [ ] Unable to determine CLINICAL INDICATORS - SIGNS / SYMPTOMS / LABS: SODIUM: 06-22-19: 133 06-23-19: 132 06-24-19: 132 ER NOTE 06-22-19: FAINTING, BECAME LIGHTHEADED, THEN LOC FALLING ONTO FLOOR RISK FACTORS: PN DR. ANITRA SANTOS 06-23-19: ACUTE BLOOD LOSS ANEMIA, GI BLEEDING, COAGULOPATHY, A FIB, ACUTE CKD H&P 06-22-19: HOME MED: LASIX PO TREATMENTS: MAR: 06-23-19: NS IV SERIES OF LABS (This form is maintained as a part of the permanent medical record) 2014 [employer] All Rights Reserved [email or web address] [email or web address] Office: [phone] [facility]
[2019-06-25 06:24] LABS: INR-International Normal Ratio 1.1; Prothrombin Time 14.2 SEC (12.0-14.7)
[2019-06-25 06:31] LABS: #Eosinphils 0.2 thou/uL (0.0-0.7); #Lymphocytes 2.1 thou/uL (1.20-3.40); #Monocytes 0.5 thou/uL (0.11-0.59); %Basophils 0.1 % (0.0-1.0); %Eosinophils 3.4 % (0.0-10.0); %Monocytes 8.3 % (0.0-10.0); %Neutrophils 52.2 % (42.0-75.0); Hemoglobin 8.4 g/dL (14.0-18.0); Mean Corpuscular Hemoglobin 32.2 pg (27.0-31.0); Mean Corpuscular Volume 97.7 fL (78.0-98.0); Mean Platelet Volume 8.5 fL (7.4-10.4); Platelet Count 201 thou/uL (130-400); RBC Distribution Width 17.8 % (11.5-14.5); White Blood Cell (WBC) Count 5.8 thou/uL (4.8-10.8)
[2019-06-25 06:35] LABS: Anion Gap 13 mmol/L (10-20); BUN (Urea Nitrogen) 11 mg/dL (8.9-20.6); Calc. Creatinine Clearance 270 mL/min (70-130); Calcium 8.4 mg/dL (7.8-10.44); Carbon Dioxide 24 mmol/L (22-29); Chloride 99 mmol/L (98-107); Estimated GFR-MDRD Greater than 90; Glucose 77 mg/dL (70-105); Potassium 4.1 mmol/L (3.5-5.1); Sodium 132 mmol/L (136-145)
[2019-06-25] MEDS: Furosemide 40 MG TAB PO SCH (08:47)
[2019-06-25] MEDS: Folic Acid 1 MG TAB PO SCH (08:47)
[2019-06-25] MEDS: Cyanocobalamin (Vitamin B-12) 1,000 MCG TAB PO SCH (08:47)
[2019-06-25] MEDS: Dronedarone HCl 400 MG TAB PO SCH (08:47)
--- NOTE | 2019-06-25 10:26 | PRG ---
DATE OF SERVICE: 06/24/2019 SUBJECTIVE: Mr. Morgan has had no abdominal pain. No nausea, vomiting, and no stool output since admission. He has had no further evidence of overt bleeding. OBJECTIVE: VITAL SIGNS: Temperature is 97.6, pulse 86, blood pressure 111/55. GENERAL: He is in no acute distress. Alert and oriented x3. LUNGS: Clear to auscultation bilaterally. HEART: Regular rate and rhythm. ABDOMEN: Soft, nontender, nondistended. Bowel sounds are present. EXTREMITIES: Trace lower extremity edema. IMPRESSION: 1. Gastrointestinal bleed while on anticoagulation with supratherapeutic INR at 9.0. Since his warfarin was reversed, he has had no further bleeding overtly. 2. Anemia secondary to acute blood loss. His hemoglobin has improved from 6.7 to 8.7. He has had a total of 3 units transfused at this point. 3. Cardiac arrhythmia. He states that he was told by Dr. Cordero today that he would not require ongoing anticoagulation. 4. Obesity hypoventilation syndrome. RECOMMENDATIONS: 1. The patient has declined endoscopy. If he has not planned to restart anticoagulation, then really treatment with a proton pump inhibitor should be adequate at this point. This can be changed to once daily dosing at this point orally. 2. He is tolerating a solid diet. 3. I will sign off. Please call if GI can be of assistance. Job ID: [id number]
[2019-06-25 11:19] VITALS: BP 121/57; TEMP 97.9
--- NOTE | 2019-06-26 06:28 | DIS ---
DATE OF ADMISSION: 06/22/2019 DATE OF DISCHARGE: 06/25/2019 REASON FOR HOSPITALIZATION: Acute blood loss anemia and black stools. PROCEDURES PERFORMED AND TREATMENTS RENDERED: The patient was admitted to medical unit with telemetry for close observation, the patient was seen by Gastroenterology and Cardiology, please see full consultation and progress notes for details. The patient was transfused 3 units of packed red blood cells with good response. The patient recommended safe for discharge by specialists on 06/25/2019. CONDITION ON DISCHARGE: Stable. SPECIFIC INSTRUCTIONS FOR THE PATIENT/FAMILY: 1. The patient is recommended to take all medications as outlined, to be re-evaluated by primary care physician in the next 5 to 7 days. 2. The patient is recommended to stop Coumadin and any blood thinner medications per specialist's recommendations. 3. The patient is recommended to take Protonix 1 pill twice a day. 4. The patient was strictly recommended that if there is any more black or blood in his bowel movement, or any other new symptoms, he is to return to acute care hospital immediately for re-evaluation. 5. The patient is to follow up with Gastroenterology in the next 1 to 2 weeks to talk about when he will be completing endoscopies including upper and lower if needed. 6. The patient recommended to followup with Cardiology in the next 1 to 2 weeks. 7. The patient is recommended . DISCHARGE MEDICATIONS: Please see full medication list for details. 1. Protonix 40 mg 1 tab p.o. b.i.d. 2. Aspirin 81 mg 1 tab p.o. daily. 3. Vitamin B12, 1000 mcg 1 tab p.o. daily. 4. Diltiazem CD 120 mg 1 tab p.o. daily. 5. Multaq 400 mg 1 tab p.o. b.i.d. 6. Lasix 40 mg 1 tab p.o. daily. 7. DuoNeb q.4 hours p.r.n. shortness of breath. 8. Magnesium oxide 400 mg 1 tab p.o. b.i.d. HOSPITAL COURSE: Mr. Morgan is a very pleasant 48-year-old gentleman with past medical history of paroxysmal atrial fibrillation, hypertension, morbid obesity, and chronic kidney disease, who presents with acute blood loss anemia and blackened stools. The patient was admitted to medical unit with telemetry for close observation. The patient was seen by Gastroenterology, please see full consultation and progress notes for details. Gastroenterology recommending acute endoscopy at this time, however, unfortunately the patient refused any procedures or endoscopies. Extensive lengths were taken by myself to recommend endoscopy, the patient continued to refuse. Extensive lengths were made by Gastroenterology to consider endoscopy, the patient continued to refuse. The patient was seen by Cardiology, please see full consultation notes for details. Cardiology recommending cessation of oral anticoagulation. The patient was monitored acute [facility] for greater than 72 hours, and no further episodes of bleeding were identified. The patient's hemoglobin remained stable for greater than 36 hours with a hemoglobin of 8.4 on the day of discharge, 06/25/2019. The patient is recommended safe for discharge by all specialists with close followup in the outpatient setting. The patient initially with INR of 9.2 on arrival, normalized to 1.1 on day of discharge. The patient was recommended by Cardiology to stop Coumadin completely and no oral anticoagulation recommended at this time. The patient is recommended to follow up with Gastroenterology in the next 1 to 2 weeks and will further discuss endoscopy in the outpatient clinic. The patient is recommended to follow up with Cardiology in the next 1 to 2 weeks and further discuss the necessity of oral anticoagulation for paroxysmal atrial fibrillation. With massive GI bleeding, the patient was stopped on blood thinners by specialist. The patient is recommended to return to acute care hospital immediately if signs or symptoms return, worsen, or any other new symptoms occur. Greater than 39 minutes spent coordinating care and discharge process for this patient. Job ID: [id number]
--- NOTE | 2019-06-27 05:37 | PQF ---
[employer] Ghotra ANITRA OLIVARES [id number] [id number] CLINICAL DOCUMENTATION CLARIFICATION FORM: POST DISCHARGE Addendum to original discharge summary date: ____ Late entry note date: __ DATE: 06/27/2019 ATTN: ANITRA SANTOS Please exercise your independent, professional judgment in responding to the clarification form. Clinical indicators are provided on the bottom of this form for your review Please check appropriate box(s): [ ] GI bleed due to Coagulopathy [ ] GI bleed due to PUD [ XX ] GI bleed due to Adverse effect of Coumadin [ ] GI bleed unspecified cause [ ] Other diagnosis [ ] Unable to determine For continuity of documentation, please document condition throughout progress notes and discharge summary. Thank You. CLINICAL INDICATORS - SIGNS / SYMPTOMS / LABS -Coagulopathy, likely GI bleed, acute blood loss anemia-H&P, 06/22, Ron Lobo MD -Likely GI bleed due to coagulopathy-H&P, 06/22, Ron Lobo MD -The patient is on coumadin for atrial fibrillation-H&P, 06/22, Ron Lobo MD -Supratherapeutic INR-Consult note, 06/22, Bolivar Cardenas MD - Acute GI bleed presenting with melena and syncope and anemia of acute blood loss, most likely peptic ulcer is the source-Consult note, 06/23, Demarco See MD - Coumadin Toxicitiy-Consult note, 06/23, Demarco See MD - elevated INR, even small distal lesion or vscular ectasia could be also be a source-Consult note, 06/23, Demarco See MD RISK FACTORS -Cardiac arrhythmia-Progress note. 06/24, Demarco See MD -obesity hypoventilation syndrome-Progress note. 06/24, Demarco See MD -Coagulopathy-Progress note. 06/24, Demaroc See MD TREATMENTS: -Stop Coumadin-DS, 06/25, ANITRA SANTOS MD -Kcenta kit-IV-MAR, 06/22 MTDD
== END 2019-06-25 12:05 | disposition home or self-care (01) | DRG 378 ==
LOC: ERS 02:22 → ERHOLD 05:10 → 2NO 14:51
PROVIDERS: ADMIT Internal Medicine; ATTEND Internal Medicine
PROC: 30233N1 Transfusion of Nonautologous Red Blood Cells into Peripheral Vein, Percutaneous Approach (ICD-10-PCS; principal; 2019-06-22)
DX: K92.2 Gastrointestinal hemorrhage, unspecified (principal); D62 Acute posthemorrhagic anemia; J96.10 Chronic respiratory failure, unspecified whether with hypoxia or hypercapnia; I50.32 Chronic diastolic (congestive) heart failure; E66.2 Morbid (severe) obesity with alveolar hypoventilation; I13.0 Hypertensive heart and chronic kidney disease with heart failure and stage 1 through stage 4 chronic kidney disease, or unspecified chronic kidney disease; I89.0 Lymphedema, not elsewhere classified; E78.5 Hyperlipidemia, unspecified; N18.9 Chronic kidney disease, unspecified; F17.210 Nicotine dependence, cigarettes, uncomplicated; T45.515A Adverse effect of anticoagulants, initial encounter; E66.01 Morbid (severe) obesity due to excess calories; D75.89 Other specified diseases of blood and blood-forming organs; J44.9 Chronic obstructive pulmonary disease, unspecified; I48.91 Unspecified atrial fibrillation; Z79.01 Long term (current) use of anticoagulants; Z90.49 Acquired absence of other specified parts of digestive tract; Y92.9 Unspecified place or not applicable
CPT/HCPCS: 36415; 36416; 36430; 70450; 71045; 80048; 80053; 82274; 83880; 84484; 85014; 85018; 85025; 85610; 85730; 86850; 86900; 86901; 93005; C9132; J3430; P9016

== ENCOUNTER 2019-07-15 00:42 | Emergency (ER) | payer OTHER ==
[2019-07-15 01:02] LABS: #Basophils 0.1 thou/uL (0.0-0.2); #Lymphocytes 1.7 thou/uL (1.20-3.40); #Monocytes 0.5 thou/uL (0.11-0.59); #Neutrophils 3.2 thou/uL (1.40-6.50); %Basophils 1.4 % (0.0-1.0); %Eosinophils 0.7 % (0.0-10.0); %Monocytes 8.9 % (0.0-10.0); %Neutrophils 58.1 % (42.0-75.0); Mean Corpuscular HGB CONC 32.9 g/dL (32.0-36.0); Mean Corpuscular Hemoglobin 30.3 pg (27.0-31.0); Mean Corpuscular Volume 92.2 fL (78.0-98.0); Mean Platelet Volume 7.8 fL (7.4-10.4); Platelet Count 174 thou/uL (130-400); RBC Distribution Width 15.7 % (11.5-14.5); White Blood Cell (WBC) Count 5.5 thou/uL (4.8-10.8)
[2019-07-15 01:10] LABS: PTT 31.7 SEC (22.9-36.1); Prothrombin Time 13.6 SEC (12.0-14.7)
[2019-07-15 01:24] LABS: ALT (SGPT) 88 U/L (8-55); AST (SGOT) 140 U/L (5-34); Albumin 3.9 g/dL (3.5-5.0); Alkaline Phosphatase 174 U/L (40-110); Anion Gap 21 mmol/L (10-20); BUN (Urea Nitrogen) 10 mg/dL (8.9-20.6); Calc. Creatinine Clearance 0 mL/min (70-130); Calcium 8.9 mg/dL (7.8-10.44); Carbon Dioxide 34 mmol/L (22-29); Chloride 81 mmol/L (98-107); Estimated GFR-MDRD 72; Globulin 3.5 g/dL (2.4-3.5); Glucose 98 mg/dL (70-105); Potassium 3.2 mmol/L (3.5-5.1); Protein, Total 7.4 g/dL (6.0-8.3); Sodium 133 mmol/L (136-145)
--- NOTE | 2019-07-15 07:41 | RAD ---
CHEST 1 VIEW: Date: 07/15/19 INDICATION: Blood in stool with lightheadedness. COMPARISON: Prior exam dated 06/22/19. FINDINGS: Cardiomegaly is stable. Chronic lung changes are similar appearing. Osseous structures are unchanged. IMPRESSION: No acute abnormality. Stable chronic findings. POS: BH
== END 2019-07-15 01:50 | disposition home or self-care (01) ==
LOC: ERS 00:42
DX: E86.1 Hypovolemia (principal); R19.7 Diarrhea, unspecified; I10 Essential (primary) hypertension; E78.5 Hyperlipidemia, unspecified; I48.92 Unspecified atrial flutter; N19 Unspecified kidney failure; F17.210 Nicotine dependence, cigarettes, uncomplicated; Z79.82 Long term (current) use of aspirin; Z79.899 Other long term (current) drug therapy
CPT/HCPCS: 71045; 80053; 84484; 85025; 85610; 85730; 93005; 94760

== ENCOUNTER 2019-09-27 12:13 | Inpatient (IN) | payer OTHER ==
[2019-09-27] MEDS ORDERED: Iopamidol-370 76% 500 ML 1 ML ONE (12:39)
[2019-09-27 13:11] LABS: Hemoglobin 10.6 g/dL (14.0-18.0); Mean Corpuscular HGB CONC 35.7 g/dL (32.0-36.0); Mean Corpuscular Hemoglobin 35.6 pg (27.0-31.0); Mean Corpuscular Volume 99.6 fL (78.0-98.0); RBC Distribution Width 16.2 % (11.5-14.5); Red Blood Cell (RBC) Count 2.98 mill/uL (4.70-6.10); White Blood Cell (WBC) Count 4.5 thou/uL (4.8-10.8)
[2019-09-27 13:12] LABS: #Basophils 0.1 thou/uL (0.0-0.2); #Monocytes 0.6 thou/uL (0.11-0.59); #Neutrophils 2.9 thou/uL (1.40-6.50); %Basophils 1.1 % (0.0-1.0); %Eosinophils 0.9 % (0.0-10.0); %Lymphocytes 21.4 % (21.0-51.0); %Monocytes 12.9 % (0.0-10.0); %Neutrophils 63.7 % (42.0-75.0)
[2019-09-27 13:18] LABS: INR-International Normal Ratio 1.1; Prothrombin Time 14.1 SEC (12.0-14.7)
[2019-09-27 13:19] LABS: PTT 32.6 SEC (22.9-36.1)
[2019-09-27 13:32] LABS: Hypochromia SLIGHT = 6-15 cells (100X) (0-5/hpf); MDiff Complete? YES; Mean Platelet Volume 9.4 fL (7.4-10.4); Platelet Count 110 thou/uL (130-400); Platelet Morphology Comment Appears Decreased; Polychromasia SLIGHT = 2-3 cells (100X) (0-2/hpf); Target Cells SLIGHT = 2-5 cells (100X) (0-1/hpf)
[2019-09-27 13:33] LABS: ALT (SGPT) 50 U/L (8-55); AST (SGOT) 129 U/L (5-34); Albumin 3.3 g/dL (3.5-5.0); Alkaline Phosphatase 342 U/L (40-110); Anion Gap 20 mmol/L (10-20); BUN (Urea Nitrogen) 18 mg/dL (8.9-20.6); Bilirubin, Total 20.4 mg/dL (0.2-1.2); CK (CPK) 11 U/L (30-200); Calc. Creatinine Clearance 0 mL/min (70-130); Calcium 9.4 mg/dL (7.8-10.44); Carbon Dioxide 35 mmol/L (22-29); Estimated GFR-MDRD Greater than 90; Glucose 101 mg/dL (70-105); Lipase 7 U/L (8-78); Potassium 3.1 mmol/L (3.5-5.1); Protein, Total 6.3 g/dL (6.0-8.3); Sodium 120 mmol/L (136-145)
[2019-09-27 13:42] LABS: Chloride 68 mmol/L (98-107)
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
--- NOTE | 2019-09-27 15:22 | ULT ---
US Gallbladder RUQ: 09/27/2019 1:46 PM CLINICAL HISTORY: Elevated bilirubin and jaundice. STUDY: Limited right upper quadrant ultrasound of abdomen. COMPARISON: None. FINDINGS: Liver: Size: Normal. Echogenicity: Hyperechoic consistent with hepatic steatosis. Contour: Smooth. Mass: None. Bile ducts: No intrahepatic or extrahepatic biliary dilatation. Common bile duct measures 5 mm. Gallbladder: Moderate sludge without shadowing stones. There is gallbladder wall thickening. Pancreas: Head and body appear normal; tail obscured by bowel gas. Right kidney: No pelvicalyceal dilatation. Right kidney measuring 12.1 cm in length. IMPRESSION: 1. Fatty liver 2. Gallbladder sludge
[2019-09-27 15:25] LABS: Clarity Hazy (Clear)
[2019-09-27 15:26] LABS: Leukocyte Unable to Interpret (Negative); Nitrite Unable to Interpret (Negative); Protein, Urine (Dipstick) Unable to Interpret mg/dL (Neg-Trace)
[2019-09-27 15:27] LABS: Bacteria/HPF 2+ HPF (None Seen); Bilirubin Unable to Interpret (Negative); Blood, Urine Unable to Interpret (Negative); Glucose, Urine (Dipstick) Unable to Interpret mg/dL (Negative); RBC/HPF 0-3 HPF (0-3); Squamous Epithelial 0-3 HPF (0-3); Transitional Epithelial 0-3 HPF (None Seen); Urobilinogen UNABLE TO INTERPRET mg/dL (Less than 2)
[2019-09-27 15:47] LABS: Actual Bicarbonate (HCO3a) 30.6 mEq/L (22-28); Analyzer IN Cardio ER; Base Excess (BEa) 7.3 mEq/L (-2.0 to +3.0); CO2 Tension 38.1 mmHg (35.0-45.0); Calcium, Ionized 1.07 mmol/L (1.12-1.30); Carboxyhemoglobin (COHb) 5.7 gm% (0.0-3.0); Hemoglobin (Hb) 10.4 g/dL (14.0-18.0); O2 Tension (PaO2) 67.4 mmHg (80.0-100.0); Potassium - ABG Lab 3.26 mmol/L (3.70-5.30); pH, Arterial 7.52 (7.35-7.45)
[2019-09-27 16:01] LABS: ALV-art Gradient 84.615 (0-20); Puncture Site LRA
[2019-09-27 16:10] LABS: Hemoglobin A1c 3.9 % (4.0-6.0)
[2019-09-27 16:17] LABS: Lactic Acid 1.6 mmol/L (0.5-2.2)
[2019-09-27 16:22] LABS: Band 14 % (5-11); Bilirubin, Total 20.1 mg/dL (0.2-1.2); Eosinophils 4 % (0-10); Hypochromia SLIGHT = 6-15 cells (100X) (0-5/hpf); Lymphocytes 19 % (21-51); MDiff Complete? YES; Mean Corpuscular HGB CONC 35.2 g/dL (32.0-36.0); Mean Corpuscular Hemoglobin 34.6 pg (27.0-31.0); Mean Corpuscular Volume 98.4 fL (78.0-98.0); Mean Platelet Volume 9.6 fL (7.4-10.4); Monocytes 3 % (0-10); Neutrophil 50 % (42-75); Platelet Count 107 thou/uL (130-400); Platelet Morphology Comment Appears Decreased; Polychromasia SLIGHT = 2-3 cells (100X) (0-2/hpf); RBC Distribution Width 16.6 % (11.5-14.5); Reactive Lymphocytes 10 % (0-10); Stomatocytes SLIGHT = 2-5 cells (100X) (0-1/hpf); Target Cells SLIGHT = 2-5 cells (100X) (0-1/hpf); White Blood Cell (WBC) Count 4.7 thou/uL (4.8-10.8)
[2019-09-27 16:39] LABS: Cholesterol 110 mg/dl (< 200 Desired); HDL Cholesterol Less than 8 mg/dL (>60 Neg Risk); Iron Binding Capacity, Total 170 mcg/dL (261-462); Magnesium 1.7 mg/dL (1.6-2.6); Phosphorus Less than 1.0 mg/dL (2.3-4.7); Triglycerides 165 mg/dL (Less than 150)
[2019-09-27 16:45] LABS: Bilirubin, Direct 14.5 mg/dL (0.1-0.3)
[2019-09-27 16:47] LABS: Thyroid Stimulating Hormone 1.9007 uIU/mL (0.35-4.94)
[2019-09-27 16:48] LABS: Syphilis Antibody Nonreactive (Nonreactive); Syphilis Antibody Index 0.17 S/CO (<1.00 Non-Reactive)
[2019-09-27 17:00] LABS: HIV (1/2) Antibody/Antigen Non-Reactive (NonReactive); HIV 1/2 INDEX 0.17 S/CO (<1.00); Hep C IgG Ab Non-Reactive (NonReactive); Hep C Index 0.64 S/CO (0-0.79)
[2019-09-27 17:12] LABS: HBCM Index 0.07 S/CO (0-0.79); HBSAg Index 0.21 S/CO (0-0.99); Hep A IgM AB Non-Reactive (NonReactive); Hep A IgM S/CO 0.15 S/CO (0-0.79); Hep B Surf Ag Non-Reactive S/CO (NonReactive); Hep C IgG Ab Non-Reactive (NonReactive); Hepatitis B Core IgM Abs Non-Reactive (NonReactive)
[2019-09-27] MEDS ORDERED: Potassium Chloride 20 MEQ TAB PO SCH (17:15)
--- NOTE | 2019-09-27 17:16 | CT ---
CT abdomen and pelvis without and with IV contrast HISTORY: Jaundice. Abdominal pain. FINDINGS: Mild atelectasis at the lung bases. Liver measures up to 23.5 cm length and is diffusely lo w density. Spleen measures up to 16.2 cm without focal abnormality. No focal liver masses are apparent. Hyperdense stones in the dependent portion of the gallbladder lumen. No evidence of biliary obstructi on. Dystrophic calcification lies immediately medial to the distal aspect of the ilium. No associated sof t tissue density mass. Appendix not visualized. Ill-defined stranding within the central mesenteric fat. No focal mass evident. Retroaortic left renal vein. Degenerative changes throughout the lumbar spine. IMPRESSION: Hepatosplenomegaly. Hepatic steatosis. 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 Cholelithiasis.
[2019-09-27 17:26] LABS: Ferritin 2245.54 ng/mL (22-322)
--- NOTE | 2019-09-27 17:37 | RAD ---
SINGLE VIEW OF THE CHEST: Comparison: 07-15-19 History: COPD with increased oxygen usage. FINDINGS: Single view of the chest shows a normal sized cardiomediastinal silhouette. There is no evidence of c onsolidation, mass, or pleural effusion. The bones are unremarkable. IMPRESSION: No evidence of acute cardiopulmonary disease. POS: [facility]
[2019-09-27] MEDS ORDERED: Potassium Phosphate 30 MMOL in Sodium Chloride 0.9% 500 ML IVPB SCH (17:45)
[2019-09-27 18:20] LABS: Acetaminophen Less than 6.0 mcg/mL (10.0-30.0); Alcohol Less than 10 mg/dL (Less than 10); Salicylate Less than 8.0 mg/dL (15.0-30.0)
[2019-09-27 20:11] LABS: Hemoglobin 10.2 g/dL (14.0-18.0)
[2019-09-27] MEDS: Sodium Chloride 0.9% 1,000 ML IV SCH (20:26)
[2019-09-27] MEDS ORDERED: Potassium Chloride 20 MEQ/100 ML PREMIX BAG ONE (20:29)
[2019-09-27] MEDS ORDERED: Potassium Chloride 20 MEQ TAB ONE (20:30)
[2019-09-27 20:32] LABS: ALT (SGPT) 45 U/L (8-55); AST (SGOT) 122 U/L (5-34); Albumin 3.2 g/dL (3.5-5.0); Alkaline Phosphatase 344 U/L (40-110); Anion Gap 15 mmol/L (10-20); BUN (Urea Nitrogen) 17 mg/dL (8.9-20.6); Calc. Creatinine Clearance 0 mL/min (70-130); Calcium 8.9 mg/dL (7.8-10.44); Carbon Dioxide 36 mmol/L (22-29); Estimated GFR-MDRD Greater than 90; Globulin 2.9 g/dL (2.4-3.5); Glucose 108 mg/dL (70-105); Potassium 3.2 mmol/L (3.5-5.1); Protein, Total 6.1 g/dL (6.0-8.3); Sodium 120 mmol/L (136-145)
[2019-09-27 20:40] LABS: Chloride 72 mmol/L (98-107)
[2019-09-28] MEDS ORDERED: Potassium Chloride 20 MEQ/100 ML PREMIX BAG ONE (01:04)
[2019-09-28 02:29] LABS: #Basophils 0.1 thou/uL (0.0-0.2); #Eosinphils 0.1 thou/uL (0.0-0.7); #Monocytes 0.6 thou/uL (0.11-0.59); #Neutrophils 2.5 thou/uL (1.40-6.50); %Basophils 1.2 % (0.0-1.0); %Eosinophils 1.7 % (0.0-10.0); %Lymphocytes 23.7 % (21.0-51.0); %Monocytes 13.3 % (0.0-10.0); %Neutrophils 60.1 % (42.0-75.0); Hemoglobin 9.8 g/dL (14.0-18.0); Mean Corpuscular HGB CONC 34.9 g/dL (32.0-36.0); Mean Corpuscular Hemoglobin 34.5 pg (27.0-31.0); Mean Corpuscular Volume 98.8 fL (78.0-98.0); Mean Platelet Volume 9.5 fL (7.4-10.4); Platelet Count 125 thou/uL (130-400); RBC Distribution Width 16.6 % (11.5-14.5); Red Blood Cell (RBC) Count 2.84 mill/uL (4.70-6.10); White Blood Cell (WBC) Count 4.2 thou/uL (4.8-10.8)
[2019-09-28 03:00] LABS: Phosphorus Less than 1.0 mg/dL (2.3-4.7)
[2019-09-28 03:07] LABS: ALT (SGPT) 46 U/L (8-55); AST (SGOT) 120 U/L (5-34); Albumin 3.1 g/dL (3.5-5.0); Alkaline Phosphatase 335 U/L (40-110); Anion Gap 17 mmol/L (10-20); BUN (Urea Nitrogen) 16 mg/dL (8.9-20.6); Bilirubin, Total 19.6 mg/dL (0.2-1.2); Calc. Creatinine Clearance 0 mL/min (70-130); Calcium 9.1 mg/dL (7.8-10.44); Carbon Dioxide 32 mmol/L (22-29); Chloride 77 mmol/L (98-107); Estimated GFR-MDRD Greater than 90; Globulin 2.9 g/dL (2.4-3.5); Glucose 107 mg/dL (70-105); Potassium 3.7 mmol/L (3.5-5.1); Sodium 122 mmol/L (136-145)
[2019-09-28] MEDS: Sodium Chloride 0.9% 1,000 ML IV SCH ×5 (04:21→20:32)
--- NOTE | 2019-09-28 06:22 | PDOC.FM ---
- Subjective Subjective: NAEO. Patient resting in bed. No concerns per nursing. Patient states he feels better than yesterday. Patient did have loss of bowels in the ER - patient states he is unable to ambulate right now. He is not very ambulatory at home either. - Objective MAR Reviewed: Yes Vital Signs & Weight: Vital Signs (12 hours) Pulse Resp Pulse Ox 09/28/19 00:31 98 16 98 09/27/19 19:27 99 16 93 L Result Diagrams: 09/28/19 02:18 09/28/19 02:18 Phys Exam - Physical Examination Constitutional: NAD HEENT: PERRLA, moist MMs sclera icteric Neck: supple, full ROM Cardiovascular: RRR, no significant murmur, no rub Gastrointestinal: soft, non-tender, positive bowel sounds HSM Musculoskeletal: pulses present non pitting edema b/l LE Neurological: non-focal, moves all 4 limbs Psychiatric: normal affect, A&O x 3 Skin: normal turgor, cap refill <2 seconds Deviation from normal: diffuse jaundice Dx/Plan (1) Orthostatic syncope Code(s): I95.1 - ORTHOSTATIC HYPOTENSION Status: Acute (2) High anion gap metabolic acidosis Code(s): E87.2 - ACIDOSIS Status: Acute (3) Chronic respiratory acidosis Code(s): E87.2 - ACIDOSIS Status: Chronic (4) Hypokalemia Code(s): E87.6 - HYPOKALEMIA Status: Acute (5) Hyperbilirubinemia Code(s): E80.6 - OTHER DISORDERS OF BILIRUBIN METABOLISM Status: Acute (6) Transaminitis Code(s): R74.0 - NONSPEC ELEV OF LEVELS OF TRANSAMNS & LACTIC ACID DEHYDRGNSE Status: Chronic (7) Pancytopenia Code(s): D61.818 - OTHER PANCYTOPENIA Status: Acute (8) QT prolongation Code(s): R94.31 - ABNORMAL ELECTROCARDIOGRAM [ECG] [EKG] Status: Acute (9) Physical deconditioning Code(s): R53.81 - OTHER MALAISE Status: Acute (10) Alcohol abuse Code(s): F10.10 - ALCOHOL ABUSE, UNCOMPLICATED Status: Chronic (11) HTN (hypertension) Code(s): I10 - ESSENTIAL (PRIMARY) HYPERTENSION Status: Chronic Qualifiers: (12) Lymphedema of both lower extremities Code(s): I89.0 - LYMPHEDEMA, NOT ELSEWHERE CLASSIFIED Status: Chronic (13) Tobacco abuse Code(s): Z72.0 - TOBACCO USE Status: Chronic - Plan Plan: #Syncope 2/2 orthostatic hypotension Likely 2/2 volume depletion vs symptomatic anemia vs electrolyte derangement - BP initially 100s/60s, improved with 2L NS, will cont NS @170cc/hr - Hgb stable, will continue to monitor with daily CBCs - LO in Sept normal - unlikely cardiac origin. EKG did show sinus tach with QT prolonged at 536. Repeat this AM. - Fall precautions #Hyperbilirubinemia 2/2 Acute Alcoholic Hepatitis TBili 20.3, painless jaundice on exam, liver edge palpable. MELD score of 27. - Increased conjugated bili. LDH normal - no hemolysis. Haptoglobin pending. - Blood/Ur Cx pending - anti-Mitochondrial ab pending for possible PBC - Continue to monitor INR - Will consult GI #Primary chronic respiratory alkalosis with secondary metabolic alkalosis Suspect 2/2 liver pathology vs pulm edema vs infection. ABG on 09/27: pH:7.52, pCO2: 38.1, O2 67.4, bicarb 30.6, base excess 7.3. CXR showing no acute abnormality. - Lactic acidosis - now downtrended. 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 Nephro has been consulted in the past and had tolvaptan therapy. Will contiue fluids for now and monitor. Can consider consulting nephro if not correcting. - K initially low, replaced. Phos low and replaced. Will continue to monitor and replace lytes as necessary. #Hematuria 2/2 bilirubin in urine not blood - UA, workup per above - Bladder scan 2/2 low UOP - Strict I's and O's - monitor H/H and vitals #Pancytopenia Suspected 2/2 chronic malnutrition and EtOH abuse, concern for underlying malignancy. WBC 4.5, plt 110. On B12 and folate at home, macrocytic anemia. - Peripheral smear, iron studies - Hold ASA and DVT PPx at this time - Hb 10.6, was 13 at last discharge - hematuria, obtaining UA, fractionated bili , LDH, haptoglobin. Repeat H/H in PM #Chronic Transaminitis AST/ALT 129/50 consistent with EtOH abuse. Elevated Alk Phos to 129. Lipase 7 - RUQ US ordered - BATISTA and gallbladder sludge - Abd CT showing hepatosplenomegaly, cholelithiasis - Hep Panel ordered; HIV, RPR - negative #QT prolongation Suspected 2/2 electrolyte derangements. EKG showing QT of 536. - Avoid QT prolonging medication - repeat EKG this AM - monitor on Tele #EtOH abuse Per hx - 4-5 shots of vodka daily. Upon further discussion today patient admits to drinking about a bottle of vodka/day. - give Thiamine - ASE protocol, monitor closely - Counselled on cessation of alcohol use #Tobacco abuse - encourage cessation, nicotine patch #H/o illicit drug use - Hep C, RPR, HIV testing - negative #HTN - initially hypotensive on presentation, no home meds - orthostatics positive #COPD - no acute exacerbation, on 2L NC at home, will cont to keep sats 88-92% - Duoneb RAIN and can space to PRN as tolerated #Chronic lymphedema and poor physical status Fam hx of lymphedema - PT/OT/Wound care/Conference Services Coordinator to eval/tx - On lasix at home, will hold at this time 2/2 fluid resuscitation - Alb 3.3, preAlb low as well #JULIA vs Obesity hypoventilation syndrome - CPAP ordered at night Code: Full Diet: CC PPx: SCDs, protonix PCP: OJVITA Garcia Dispo: LOS >48hours. Pending clinical course. Case discussed with Dr. Scott. Addendum - Attending - Attending Attestation Date/Time: 09/28/19 1028 I personally evaluated the patient and discussed the management with Dr. Nair. I agree with the History, Examination, Assessment and Plan documented above with any addition or exceptions noted below. Patient here with multiple lab abnormalities and noted jaundice likely 2/2 alcoholic hepatitis. He has some evidence of liver dysfunction, and U/S shows fatty liver. He is not coagulopathy, but cholesterol panels are very abnormal likely signifying poor synthetic function. He has characteristic 2:1 elevation AST:ALT likely due to alcohol toxicity. He is hyponatremic and hypoPhos 2/2 potomania. He will need repletion, IVF hydration, and alcohol cessation. CT did not reveal major pathology. Will consult GI but continue supportive treatment and monitor for withdrawals at this time.
[2019-09-28] MEDS: Nicotine 21 MG PATCH TD SCH ×2 (07:40→17:21)
[2019-09-28] MEDS ORDERED: Folic Acid 1 MG TAB ONE (07:48)
[2019-09-28] MEDS ORDERED: Thiamine 100 MG TAB ONE ×3 (07:49→07:50)
[2019-09-28 08:48] LABS: Phosphorus Less than 1.0 mg/dL (2.3-4.7)
[2019-09-28] MEDS: Folic Acid 1 MG TAB PO SCH (08:51)
[2019-09-28] MEDS: Thiamine 100 MG TAB PO SCH (08:52)
[2019-09-28] MEDS ORDERED: Enoxaparin Sodium 40 MG/0.4 ML SYRINGE SC SCH (10:15)
[2019-09-28 10:24] LABS: Amphetamine Not Detected (NotDetected); Barbiturates Screen Not Detected (NotDetected); Benzodiazepine Screen Not Detected (NotDetected); Cocaine Metabolite Screen Not Detected (NotDetected); Medtox Control Line Valid? VALID (VALID); Medtox Reader # READER 4; Methadone Not Detected (NotDetected); Methamphetamine Not Detected (NotDetected); Opiate Screen Not Detected (NotDetected); Oxycodone Screen Not Detected (NotDetected); Phencyclidine (PCP) Not Detected (NotDetected); THC/Cannabinoid Screen Not Detected (NotDetected); Tricyclic Screen Not Detected (NotDetected)
[2019-09-28] MEDS: Cyanocobalamin (Vitamin B-12) 1,000 MCG TAB PO SCH (11:14)
[2019-09-28] MEDS: PHOS-NAK 1 PKT PACK PO SCH ×3 (11:15→20:29)
[2019-09-28 12:30] LABS: EliA Vaculitis New Method **** NEW METHOD ****; Mitochondrial Ab 0.6 U/mL (<4 Negative)
[2019-09-28 12:40] LABS: INR-International Normal Ratio 1.1; Prothrombin Time 14.1 SEC (12.0-14.7)
--- NOTE | 2019-09-28 14:32 | CON ---
DATE OF CONSULTATION: 09/28/2019 REQUESTING PHYSICIAN: Meredith Nair MD REASON FOR CONSULTATION: Jaundice. HISTORY OF PRESENT ILLNESS: Nikita Morgan is a 49-year-old man, who was admitted to the hospital yesterday with several episodes of syncope over the past few days. He says this is new for him. Notably, he has a history of congestive heart failure with diastolic dysfunction, COPD with active tobacco abuse and sleep apnea. He notably has lost he says over 200 pounds over the past year, primarily fluid weight due to diuretic therapy. He also reports a significant history of heavy alcohol use, which he says has never caused any problems. He would estimate he drinks at least a bottle of vodka every day and that is actually has been his pattern for a long time, though he had never really mentioned it to medical providers before. At any rate upon presentation, he was found to be jaundiced, which he had not noted before up with total bilirubin of 20. He also has significant electrolyte abnormalities including hyponatremia and hypophosphatemia. Vitamin D level is very low at 4.0. He has been admitted to the hospital and is currently undergoing supportive care. Imaging has not demonstrated any evidence of biliary obstruction, but he does have hepatosplenomegaly. He is not having any withdrawal symptoms. He denies any confusion. He denies any abdominal pain or nausea. His chronic lower extremity edema is actually better than it has been in a while. His last drink was a couple of days ago. Alcohol level is actually negative. REVIEW OF SYSTEMS: Full review of systems including constitutional, head, eyes, ears, nose, throat, GI, , cardiovascular, respiratory, musculoskeletal, and neurologic systems is negative except as noted in the HPI. PAST MEDICAL HISTORY: Morbid obesity; CHF with diastolic dysfunction; Pickwickian syndrome; obstructive sleep apnea; COPD; tobacco abuse, ongoing; hypertension; alcohol abuse; remote history of drug abuse; atrial fibrillation, status post ablation; appendectomy; lymphedema; and left ankle surgery. FAMILY HISTORY: Negative for liver disease. SOCIAL HISTORY: The patient does smoke. He also reports drinking about a bottle of vodka every day and this has been his pattern for a long time. Prior history of drug abuse, but none recently. ALLERGIES: WARFARIN IS ON HIS ALLERGY LIST, WAS DISCONTINUED IN AFTER PRESENTATION WITH MELENA AND SUPRATHERAPEUTIC INR. OUTPATIENT MEDICATIONS: 1. Folic acid 1 mg daily. 2. Pantoprazole 40 mg daily. 3. Magnesium oxide 400 mg daily. 4. DuoNeb p.r.n. 5. Lasix 40 mg daily. 6. Vitamin B12 of 1000 mcg daily. 7. Aspirin 81 mg daily. PHYSICAL EXAMINATION: VITAL SIGNS: Temperature 97.8, pulse 100, blood pressure 103/59, and oxygen saturation 98% on 2 L nasal cannula. GENERAL: A 49-year-old man, who was grossly jaundiced, lying in bed comfortably, in no distress. SKIN: He is jaundiced. No rashes are palpable. EYES: He has scleral icterus. Extraocular movements intact. ENT: Mucous membranes moist. No oral lesions. LYMPH: No submandibular or supraclavicular lymphadenopathy. THYROID: Nontender to palpation. HEART: Regular. Borderline tachycardia. LUNGS: Clear to auscultation bilaterally. ABDOMEN: Nondistended. Bowel sounds are present. Soft and nontender to palpation. He does have a palpable liver edge 2 to 3 cm below the right costal margin, but this is nontender. EXTREMITIES: He has chronic lymphedema. 1+ pitting edema below the knees bilaterally. NEURO: Cranial nerves II through XII intact bilaterally. No asterixis. VESSELS: Radial pulses 2+ bilaterally. LABORATORY STUDIES: WBC 4.2, hemoglobin 9.8, platelets 125, and MCV 98.8. Sodium 122, potassium 3.7, BUN 16, creatinine 0.77, glucose 107, calcium 9.1, and phosphorus less than 1.0. INR 1.1. Total bilirubin 19.6, alkaline phosphatase 335, AST 120, ALT 46, and albumin 3.1. Vitamin D is 4.0. Direct bilirubin 14.5. Ferritin 2245. Urinalysis shows 7 to 10 wbc's. Blood cultures show no growth to date. Alcohol level negative. Acetaminophen level negative. Salicylate level negative. Urine drug screen negative. Viral hepatitis serologies negative. HIV negative. Syphilis IgG and IgA were negative. CK 11. Lactic acid 1.6. LDH 180. IMAGING STUDIES: Chest x-ray showed no acute processes. Abdominal ultrasound showed fatty liver and gallbladder sludge, but no evidence of biliary dilation with common bile duct only [address] of the abdomen and pelvis demonstrates hepatosplenomegaly, but no liver mass. There are stones in the gallbladder. ASSESSMENT AND PLAN: 1. Acute alcoholic hepatitis. 2. Hyperbilirubinemia, secondary to alcoholic hepatitis. 3. Chronic alcohol abuse. I note the patient has negative viral hepatitis serologies. He does have an elevated ferritin, but this could just be consistent with alcoholic fatty liver disease. We do need to round out the liver lab workup a bit including autoimmune markers, ceruloplasmin, and AFP. I would also go ahead and get hereditary hemochromatosis genetic testing to rule this out, but overall presentation is consistent with acute alcoholic hepatitis. His discriminant function calculates out to 24.7, which is actually a favorable prognosis. I do not recommend initiation of any steroids. Continue with supportive care and trend the CMP and INR daily. I agree with vitamin D replacement, which has been initiated. Though on discharge, I would recommend treating with vitamin D3 of 50,000 units weekly x12 weeks and then reassessment. Continue watching with the LEONOR protocol. I had a long discussion with the patient that he is going to need to completely quit all alcohol from this point forward, and he is agreeable to this. Thank you for the consultation. Please call anytime with questions or concerns. Job ID: [id number]
[2019-09-28] MEDS: Magnesium Oxide 400 MG TAB PO SCH (15:12)
[2019-09-28 18:58] LABS: Anion Gap 14 mmol/L (10-20); BUN (Urea Nitrogen) 12 mg/dL (8.9-20.6); Calc. Creatinine Clearance 260 mL/min (70-130); Calcium 8.6 mg/dL (7.8-10.44); Carbon Dioxide 33 mmol/L (22-29); Chloride 81 mmol/L (98-107); Estimated GFR-MDRD Greater than 90; Glucose 95 mg/dL (70-105); Potassium 3.3 mmol/L (3.5-5.1); Sodium 125 mmol/L (136-145)
[2019-09-28] MEDS ORDERED: Potassium Chloride 20 MEQ TAB PO SCH (21:30)
[2019-09-29] MEDS: Sodium Chloride 0.9% 1,000 ML IV SCH ×2 (00:29→10:13)
[2019-09-29 05:08] LABS: #Eosinphils 0.1 thou/uL (0.0-0.7); #Lymphocytes 0.8 thou/uL (1.20-3.40); #Monocytes 0.5 thou/uL (0.11-0.59); #Neutrophils 1.7 thou/uL (1.40-6.50); %Basophils 1.6 % (0.0-1.0); %Eosinophils 2.4 % (0.0-10.0); %Monocytes 14.6 % (0.0-10.0); %Neutrophils 55.4 % (42.0-75.0); Hemoglobin 8.4 g/dL (14.0-18.0); Mean Corpuscular HGB CONC 34.2 g/dL (32.0-36.0); Mean Corpuscular Hemoglobin 34.6 pg (27.0-31.0); Platelet Count 137 thou/uL (130-400); RBC Distribution Width 16.7 % (11.5-14.5); Red Blood Cell (RBC) Count 2.42 mill/uL (4.70-6.10); White Blood Cell (WBC) Count 3.1 thou/uL (4.8-10.8)
[2019-09-29 05:11] LABS: INR-International Normal Ratio 1.1; PTT 32.2 SEC (22.9-36.1); Prothrombin Time 14.6 SEC (12.0-14.7)
[2019-09-29 05:49] LABS: ALT (SGPT) 37 U/L (8-55); AST (SGOT) 111 U/L (5-34); Albumin 2.7 g/dL (3.5-5.0); Alkaline Phosphatase 348 U/L (40-110); Anion Gap 11 mmol/L (10-20); BUN (Urea Nitrogen) 9 mg/dL (8.9-20.6); Bilirubin, Total 14.5 mg/dL (0.2-1.2); Calc. Creatinine Clearance 275 mL/min (70-130); Calcium 8.4 mg/dL (7.8-10.44); Carbon Dioxide 34 mmol/L (22-29); Chloride 85 mmol/L (98-107); Estimated GFR-MDRD Greater than 90; Globulin 2.7 g/dL (2.4-3.5); Glucose 98 mg/dL (70-105); Potassium 3.6 mmol/L (3.5-5.1); Protein, Total 5.4 g/dL (6.0-8.3); Sodium 126 mmol/L (136-145)
[2019-09-29] MEDS ORDERED: Senokot 8.6 MG TAB PO PRN ×2 (06:28)
[2019-09-29] MEDS ORDERED: Polyethylene Glycol 3350 17 GM Packet PO PRN (06:28)
--- NOTE | 2019-09-29 06:42 | PDOC.FM ---
- Subjective Subjective: NAEO. Patient resting comfortably in bed. No complaints or concerns. States he is feeling better. Patient was able to sleep some last night. Tolerating PO well. Endorses normal BMs. Patient is concerned about his swelling and resuming his lasix. He does endorse some mild dizziness still when he gets up to go to the bathroom or walk around his room. He denies any SOB, chest pain, NVD, sweating, hallucinations, numbness/tingling. - Objective MAR Reviewed: Yes Vital Signs & Weight: Vital Signs (12 hours) Temp Pulse Resp BP Pulse Ox 09/29/19 04:02 98.1 F 100 14 111/57 L 100 09/28/19 23:38 95 16 93 L 09/28/19 20:24 97.9 F 100 102/50 L 98 09/28/19 19:07 90 16 95 Weight Weight 142.003 kg I&O: 09/27/19 09/28/19 09/29/19 06:59 06:59 06:59 Intake Total 4310 Output Total 1015 Balance 3295 Result Diagrams: 09/29/19 04:38 09/29/19 04:38 Phys Exam - Physical Examination Constitutional: NAD HEENT: PERRLA, moist MMs sclera icteric Neck: supple, full ROM Respiratory: no wheezing, no rales, no rhonchi, clear to auscultation bilateral Cardiovascular: RRR, no significant murmur, no rub Gastrointestinal: soft, non-tender, no distention, positive bowel sounds Musculoskeletal: pulses present non pitting edema in b/l LE Neurological: non-focal, moves all 4 limbs Psychiatric: normal affect, A&O x 3 Skin: normal turgor, cap refill <2 seconds Deviation from normal: Jaundice in face and upper extremities; improved color in hands Dx/Plan (1) Orthostatic syncope Code(s): I95.1 - ORTHOSTATIC HYPOTENSION Status: Acute (2) High anion gap metabolic acidosis Code(s): E87.2 - ACIDOSIS Status: Acute (3) Chronic respiratory acidosis Code(s): E87.2 - ACIDOSIS Status: Chronic (4) Hypokalemia Code(s): E87.6 - HYPOKALEMIA Status: Acute (5) Hyperbilirubinemia Code(s): E80.6 - OTHER DISORDERS OF BILIRUBIN METABOLISM Status: Acute (6) Transaminitis Code(s): R74.0 - NONSPEC ELEV OF LEVELS OF TRANSAMNS & LACTIC ACID DEHYDRGNSE Status: Chronic (7) Pancytopenia Code(s): D61.818 - OTHER PANCYTOPENIA Status: Acute (8) QT prolongation Code(s): R94.31 - ABNORMAL ELECTROCARDIOGRAM [ECG] [EKG] Status: Acute (9) Physical deconditioning Code(s): R53.81 - OTHER MALAISE Status: Acute (10) Alcohol abuse Code(s): F10.10 - ALCOHOL ABUSE, UNCOMPLICATED Status: Chronic (11) HTN (hypertension) Code(s): I10 - ESSENTIAL (PRIMARY) HYPERTENSION Status: Chronic Qualifiers: (12) Lymphedema of both lower extremities Code(s): I89.0 - LYMPHEDEMA, NOT ELSEWHERE CLASSIFIED Status: Chronic (13) Tobacco abuse Code(s): Z72.0 - TOBACCO USE Status: Chronic - Plan Plan: #Acute Alcoholic Hepatitis Tbili 20.3, painless jaundice on exam, liver edge palpable. AST/ALT >2:1 ratio on admission. Significant alcohol use hx. Discriminant function: 31.1 - good prognosis. MELD score (original scoring) 18, (new scoring with Na = 26). - Viral hepatitis serologies negative, elevated ferritin - Autoimmune markers pending including: ceruloplasmin, AFP. HH labs pending. - Clinical picture fits alcoholic hepatitis. Supportive care at this point. GI consulted, appreciate recs. Do not recommend steroids at this time. Will continue to monitor INR and CMP daily. Vit D replacement initiated. INR today 1.1. CMP with improved liver enzymes and alk phos. - Continue to encourage patient daily to completely quit drinking alcohol from this point forward. Patient agreeable. States he is confident he will be able to quit. #Syncope 2/2 orthostatic hypotension Likely 2/2 volume depletion vs symptomatic anemia vs electrolyte derangement - BP initially 100s/60s, s/p 3L NS and mIVF. Will encourage PO hydration. - Hgb stable, will continue to monitor with daily CBCs - LO in Sept normal - unlikely cardiac origin. EKG did show sinus tach with QT prolonged. - Fall precautions #Hyponatremia Na 120 on admission. s/p 3L NS and continued on mIVF. - Patient has had an appropriate rate of rise of sodium. Na 126 this AM. Will continue to monitor. Patient's baseline Na is 130s. Will stop mIVF and encourage PO hydration. #Hyperbilirubinemia 2/2 Acute Alcoholic Hepatitis - see above #Primary chronic respiratory alkalosis with secondary metabolic alkalosis Suspect 2/2 liver pathology vs pulm edema vs infection. ABG on 09/27: pH:7.52, pCO2: 38.1, O2 67.4, bicarb 30.6, base excess 7.3. CXR showing no acute abnormality. ASA level normal. - Lactic acidosis - now downtrended. - Blood/ur cx NGTD #Pancytopenia Suspected 2/2 chronic malnutrition and EtOH abuse. Initialy - WBC 4.5, plt 110. On B12 and folate at home, macrocytic anemia. - Hgb stable, plt increased to 137. Will continue to trend - DVT ppx initiated #Chronic Transaminitis AST/ALT 129/50 consistent with EtOH abuse. Elevated Alk Phos to 129. - RUQ US ordered - hepatic steatosis and gallbladder sludge. Abd CT showing hepatosplenomegaly, cholelithiasis - Hep panel, HIV, RPR negative for any underlying cause. Autoimmune labs pending. #QT prolongation Suspected 2/2 electrolyte derangements. Initial EKG showing QT of 536. - Avoid QT prolonging medications - monitor on Tele #EtOH abuse Per hx - 4-5 shots of vodka daily. Upon further discussion today patient admits to drinking about a bottle of vodka/day. - give Thiamine, folic acid, PRN ativan; ASE protocol -has not been documented. CIWA score of 1 this AM per my exam. Will likely give a librium taper upon discharge and have close f/u with patient. - Counselled on cessation of alcohol use #Tobacco abuse - Encourage cessation, nicotine patch #H/o illicit drug use - Hep C, RPR, HIV - negative. UDS neg. Patient denies any current use. #HTN - initially hypotensive on presentation, no home meds - orthostatics positive. BPs have been low/normal. Will continue to monitor. Encourage PO hydration. #COPD - no acute exacerbation, on 2L NC at home, will cont to keep sats 88-92% - Duoneb RAIN and can space to PRN as tolerated #Chronic lymphedema and poor physical status Fam hx of lymphedema - PT/OT/Wound care/School Psychology Specialist to eval/tx - Will restart lasix - Alb 3.3 -> 2.7, preAlb low as well #Pickwickian syndrome - CPAP ordered at night Code: Full Diet: CC PPx: lovenox, protonix PCP: JOVITA Garcia Dispo: LOS >48hours. Pending clinical course. Case discussed with Dr. Scott. Addendum - Attending - Attending Attestation Date/Time: 09/29/19 1010 I personally evaluated the patient and discussed the management with Dr. Nair. I agree with the History, Examination, Assessment and Plan documented above with any addition or exceptions noted below. Patient with with suspected alcoholic hepatitis. He is feeling better. Labs stable. Sodium improving. Needs to cease all alcohol. Labs for other causes of liver dysfunction sent out. GI on board. Will need to monitor for withdrawals. Continue diet and trending labs.
[2019-09-29] MEDS ORDERED: Cholecalciferol (Vitamin D3) 400 UNITS TAB PO SCH (09:00)
--- NOTE | 2019-09-29 09:39 | PDOC.PALCO ---
Palliative Care Consult - Consult Details Requesting Physician: Dr Nair Reason for Consult: goals of care Family Members Present: None - Pertinent HPI Presented to the emergency room with syncopal episodes for the past three days. Trigger for syncope is position transition with dizziness and loss of vision preempting syncope. Discharged from the hospital several weeks ago, was to follow up at rehab but states that he did not secondary to his significant other / Bhumi being admitted to the hospital/icu. He confirms that he has followed up with Dr Cordero and the [facility]. Reports he has not taken his lasix for the past two days, and has had an increase in edema. - Pertinent PMH COPD O2 use in home setting, Heart failure, diabetes, chronic alcohol abuse, morbid obesity, Pickwickian disease - Social History Smoking Status: Current every day smoker Smoking: cigarettes Alcohol Use: heavy, daily (Confirmed he drinks a liter of vodka a day) Drug Use History: none Living Situation: (Partner/ ) - Medications MAR Reviewed: Yes - Allergies Allergies/Adverse Reactions: Allergies Allergy/AdvReac Type Severity Reaction Status Date / Time warfarin Allergy Verified 09/28/19 08:44 - ROS Constitutional: alert, weakness Eyes: other (negative for blurry vision, drainage) Respiratory: other (shrotness of breath with exertion, negative for cough.) Cardiology: other (negative for chest pain, palpitaitons) Neurological: dizziness - Objective Vital Signs: Vital Signs - Most Recent Temp Pulse Resp BP Pulse Ox 97.6 F 88 16 108/57 L 98 09/29/19 07:28 09/29/19 07:51 09/29/19 07:51 09/29/19 07:28 09/29/19 07:51 Palliative Performance Scale: 50 - Physical Exam Constitutional: ill appearing HEENT: moist MMs (diminished to bases), scleral icterus Musculoskeletal: edema present Neurology: moves all 4 limbs Skin: bruising Psychiatric: A&O x 3 - Problem List (1) Acute on chronic diastolic ACC/AHA stage C congestive heart failure Code(s): I50.33 - ACUTE ON CHRONIC DIASTOLIC (CONGESTIVE) HEART FAILURE Current Visit: No Status: Acute (2) CKD (chronic kidney disease) Code(s): N18.9 - CHRONIC KIDNEY DISEASE, UNSPECIFIED Current Visit: No Status: Acute (3) Morbid obesity Code(s): E66.01 - MORBID (SEVERE) OBESITY DUE TO EXCESS CALORIES Current Visit : No Status: Acute (4) Palliative care encounter Code(s): Z51.5 - ENCOUNTER FOR PALLIATIVE CARE Current Visit: No Status: Acute (5) Physical deconditioning Code(s): R53.81 - OTHER MALAISE Current Visit: No Status: Acute (6) Alcohol abuse Code(s): F10.10 - ALCOHOL ABUSE, UNCOMPLICATED Current Visit: No Status: Chronic (7) Pickwickian syndrome Code(s): E66.2 - MORBID (SEVERE) OBESITY WITH ALVEOLAR HYPOVENTILATION Current Visit: No Status: Chronic - Plan/Recommendations Plan: Discussed activity post discharge. Patient states he did not follow up with rehab. Confirms he purchased a car and is able to park by the ramp by his door. States he has been compliant with Dr marinelli with Dr Read and [facility]. D Discussed alcohol consumption and triggers. Consumes "around" 1 liter of vodka a day, and has drank "a long time". In attempting to discuss behaviors or methods to implement for replacement for alcohol Mr Morgan was not interested, said "I will just not drink." I aware of AA and is not interested in information or resources. Goal of Care: Goal is to return home, not interested in rehab or interventions to mitigate alcohol use. Return to home setting with Bhumi, follow up with [facility]. Palliative Care will sign off, thank you for the consult. We are happy to continue to assist as needed, please let us know in the future how we can assist in optimal care for Mr. Morgan. [60] minutes spent on this encounter with >50% of the time in counseling and coordination of care. Thank you for this very appropriate consult.
[2019-09-29] MEDS: Magnesium Oxide 400 MG TAB PO SCH (09:41)
[2019-09-29] MEDS: Folic Acid 1 MG TAB PO SCH (09:42)
[2019-09-29] MEDS: Thiamine 100 MG TAB PO SCH (09:42)
[2019-09-29] MEDS: Enoxaparin Sodium 40 MG/0.4 ML SYRINGE SC SCH (09:42)
[2019-09-29] MEDS: Cyanocobalamin (Vitamin B-12) 1,000 MCG TAB PO SCH (09:42)
[2019-09-29 11:09] LABS: ANA Symphony (Qualitative) Negative (Negative); ANA Symphony (Quantitative) 0.2 Ratio (< 0.7 Negative); dsDNA IgG Antibody Less than 0.5 IU/mL (<10 Negative)
--- NOTE | 2019-09-29 12:03 | PQF ---
DATE: 09-29-19 ATTN: DR. HERMAN QUINTANA Please exercise your independent, professional judgment in responding to the clarification form. Clinical indicators are provided on the bottom of this form for your review Please check appropriate box(s): [ ] Acute Respiratory Failure: [ ] with Hypoxia[ ] with Hypercapnia [ ] Acute On Chronic Respiratory Failure: [ ] with Hypoxia [ ] with Hypercapnia [ ] Acute Respiratory Failure due to: (etiology) [ x] Chronic Respiratory Failure only [ ] with Hypoxia [ ] with Hypercapnia [ ] Other diagnosis [ ] Unable to determine In addition, please specify: Present on Admission (POA): [x ] Yes [ ] No [ ] Unable to determine For continuity of documentation, please document condition throughout progress notes and discharge summary. Thank You. CLINICAL INDICATORS - SIGNS / SYMPTOMS / LABS / RESULTS AND LOCATION IN MR: ER 09-27-19: O2 SAT: 91 ON RA, USES AT -HOME OXYGEN, SOB H&P 09-27-19: PATIENT RELATES MARKED WEIGHT LOSS > 100 LBS SINCE APRIL 2019 ADMISSION WITH RESPIRATORY FAILURE AND ARF SECONDARY TO ATN, HX OBESITY/COPD/ JULIA/A FIB S/P ABLATION/CHRONIC LYMPHEDEMA/HYPONATREMIA/TOBACCO ALCOHOL USE H&P 09-27-19: CPAP ORDERED AT NIGHT, ON 2L NC AT HOME, WILL CONT TO KEEP SATS 88-92%, DUONEB RAIN AND CAN SPACE TO PRN TOLERATED RISK FACTORS / RESULTS AND LOCATION IN MR: ER 09-27-19: O2 SAT: 91 ON RA, USES AT -HOME OXYGEN, SOB H&P 09-27-19: PATIENT RELATES MARKED WEIGHT LOSS > 100 LBS SINCE APRIL 2019 ADMISSION WITH RESPIRATORY FAILURE AND ARF SECONDARY TO ATN, HX OBESITY/COPD/ JULIA/A FIB S/P ABLATION/CHRONIC LYMPHEDEMA/HYPONATREMIA/TOBACCO ALCOHOL USE TREATMENTS / RESULTS AND LOCATION IN MR: H&P 09-27-19: CPAP ORDERED AT NIGHT, ON 2L NC AT HOME, WILL CONT TO KEEP SATS 88-92%, DUONEB RAIN AND CAN SPACE TO PRN TOLERATED Acute Respiratory Failure: ABG pH < 7.35 or > 7.45; Decreased oxygen saturation (<90% room air or < 95% on oxygen); PCO2 > 50 mm Hg; PO2 < 60 mm Hg; Labored or rapid respirations ARDS: Dx Criteria [[place]ar ARDS]: Respiratory symptoms within one week of a known clinical insult (e.g. shock, infection, surgery, trauma) Bilateral opacities in CXR/Chest CT not due to CHF or fluid (This form is maintained as a part of the permanent medical record) 2014 [employer]. All Rights Reserved ALVARO [email or web address] Office: [phone] [facility]
[2019-09-29 13:20] LABS: Phosphorus 1.2 mg/dL (2.3-4.7)
[2019-09-29] MEDS: PHOS-NAK 1 PKT PACK PO SCH ×2 (14:25→20:45)
[2019-09-29] MEDS: Nicotine 21 MG PATCH TD SCH (14:26)
[2019-09-29 15:24] LABS: Anion Gap 13 mmol/L (10-20); BUN (Urea Nitrogen) 9 mg/dL (8.9-20.6); Calc. Creatinine Clearance 249 mL/min (70-130); Calcium 8.7 mg/dL (7.8-10.44); Carbon Dioxide 31 mmol/L (22-29); Chloride 85 mmol/L (98-107); Estimated GFR-MDRD Greater than 90; Glucose 122 mg/dL (70-105); Potassium 3.5 mmol/L (3.5-5.1); Sodium 125 mmol/L (136-145)
[2019-09-30 05:03] LABS: #Basophils 0.1 thou/uL (0.0-0.2); #Eosinphils 0.1 thou/uL (0.0-0.7); #Lymphocytes 1.2 thou/uL (1.20-3.40); #Monocytes 0.5 thou/uL (0.11-0.59); #Neutrophils 2.1 thou/uL (1.40-6.50); %Basophils 1.5 % (0.0-1.0); %Eosinophils 2.9 % (0.0-10.0); %Lymphocytes 29.6 % (21.0-51.0); %Monocytes 13.4 % (0.0-10.0); %Neutrophils 52.6 % (42.0-75.0); Hemoglobin 8.1 g/dL (14.0-18.0); Mean Corpuscular HGB CONC 34.3 g/dL (32.0-36.0); Mean Corpuscular Hemoglobin 35.4 pg (27.0-31.0); Platelet Count 173 thou/uL (130-400); RBC Distribution Width 16.8 % (11.5-14.5); Red Blood Cell (RBC) Count 2.28 mill/uL (4.70-6.10); White Blood Cell (WBC) Count 3.9 thou/uL (4.8-10.8)
[2019-09-30 05:12] LABS: ALT (SGPT) 36 U/L (8-55); AST (SGOT) 105 U/L (5-34); Albumin 2.6 g/dL (3.5-5.0); Alkaline Phosphatase 350 U/L (40-110); Anion Gap 11 mmol/L (10-20); BUN (Urea Nitrogen) 8 mg/dL (8.9-20.6); Bilirubin, Total 14.3 mg/dL (0.2-1.2); Calc. Creatinine Clearance 271 mL/min (70-130); Calcium 8.6 mg/dL (7.8-10.44); Carbon Dioxide 31 mmol/L (22-29); Chloride 87 mmol/L (98-107); Estimated GFR-MDRD Greater than 90; Globulin 2.7 g/dL (2.4-3.5); Glucose 97 mg/dL (70-105); Potassium 3.7 mmol/L (3.5-5.1); Protein, Total 5.3 g/dL (6.0-8.3); Sodium 125 mmol/L (136-145)
--- NOTE | 2019-09-30 06:32 | PDOC.FM ---
- Subjective Subjective: NAEO. Patient resting comfortably in bed. No complaints or concerns. States he is tolerating his diet well. Has been getting up and walking. Denies any sweating, fidgeting, headaches, NV, hallucinations. - Objective MAR Reviewed: Yes Vital Signs & Weight: Vital Signs (12 hours) Temp Pulse Resp BP BP Pulse Ox 09/30/19 04:00 110/52 L 09/30/19 03:40 97.8 F 101 H 19 110/52 L 95 09/29/19 23:35 86 16 95 09/29/19 20:41 98.1 F 96 18 105/51 L 95 09/29/19 20:00 105/51 L Weight Admit Weight 142.003 kg Weight 143.063 kg I&O: 09/28/19 09/29/19 09/30/19 06:59 06:59 06:59 Intake Total 4310 1370 Output Total 1015 1150 Balance 3295 220 Result Diagrams: 09/30/19 04:33 09/30/19 04:33 Phys Exam - Physical Examination Constitutional: NAD HEENT: PERRLA, moist MMs, sclera anicteric Neck: supple, full ROM Respiratory: no wheezing, no rales, no rhonchi, clear to auscultation bilateral Cardiovascular: RRR, no significant murmur, no rub Gastrointestinal: soft, non-tender, no distention, positive bowel sounds Musculoskeletal: pulses present non pitting edema b/l LE Neurological: non-focal, moves all 4 limbs Psychiatric: normal affect, A&O x 3 Skin: no rash, normal turgor, cap refill <2 seconds Dx/Plan (1) Orthostatic syncope Code(s): I95.1 - ORTHOSTATIC HYPOTENSION Status: Acute (2) High anion gap metabolic acidosis Code(s): E87.2 - ACIDOSIS Status: Acute (3) Chronic respiratory acidosis Code(s): E87.2 - ACIDOSIS Status: Chronic (4) Hypokalemia Code(s): E87.6 - HYPOKALEMIA Status: Acute (5) Hyperbilirubinemia Code(s): E80.6 - OTHER DISORDERS OF BILIRUBIN METABOLISM Status: Acute (6) Transaminitis Code(s): R74.0 - NONSPEC ELEV OF LEVELS OF TRANSAMNS & LACTIC ACID DEHYDRGNSE Status: Chronic (7) Pancytopenia Code(s): D61.818 - OTHER PANCYTOPENIA Status: Acute (8) QT prolongation Code(s): R94.31 - ABNORMAL ELECTROCARDIOGRAM [ECG] [EKG] Status: Acute (9) Physical deconditioning Code(s): R53.81 - OTHER MALAISE Status: Acute (10) Alcohol abuse Code(s): F10.10 - ALCOHOL ABUSE, UNCOMPLICATED Status: Chronic (11) HTN (hypertension) Code(s): I10 - ESSENTIAL (PRIMARY) HYPERTENSION Status: Chronic Qualifiers: (12) Lymphedema of both lower extremities Code(s): I89.0 - LYMPHEDEMA, NOT ELSEWHERE CLASSIFIED Status: Chronic (13) Tobacco abuse Code(s): Z72.0 - TOBACCO USE Status: Chronic - Plan Plan: #Acute Alcoholic Hepatitis Tbili 20.3, painless jaundice on exam, liver edge palpable. AST/ALT >2:1 ratio on admission. Significant alcohol use hx. - Viral hepatitis serologies negative, elevated ferritin. AFP tumor marker negative. - Autoimmune markers pending including: ceruloplasmin. HH labs pending. - Clinical picture fits alcoholic hepatitis. Supportive care at this point. GI consulted, appreciate recs. Do not recommend steroids at this time. Vit D replacement initiated. CMP with improved liver enzymes. - Continue to encourage patient daily to completely quit drinking alcohol from this point forward. Patient agreeable. States he is confident he will be able to quit. #Syncope 2/2 orthostatic hypotension Likely 2/2 volume depletion vs symptomatic anemia vs electrolyte derangement - BP initially 100s/60s, s/p 3L NS and mIVF. Will encourage PO hydration. - Hgb stable, will continue to monitor with daily CBCs - LO in Sept normal - unlikely cardiac origin. EKG did show sinus tach with QT prolonged. - Fall precautions #UTI - Ucx grew out serratia and enteroccus. Will treat with one time dose of Gentamicin #Hyponatremia Na 120 on admission. s/p 3L NS and continued on mIVF. - Patient has had an appropriate rate of rise of sodium. Na 125 this AM. Will continue to monitor. Patient's baseline Na is 130s. Will stop mIVF and encourage PO hydration. #Hyperbilirubinemia 2/2 Acute Alcoholic Hepatitis - see above #Primary chronic respiratory alkalosis with secondary metabolic alkalosis Suspect 2/2 liver pathology vs pulm edema vs infection. ABG on 09/27: pH:7.52, pCO2: 38.1, O2 67.4, bicarb 30.6, base excess 7.3. CXR showing no acute abnormality. ASA level normal. - Lactic acidosis - now downtrended. - Blood/ur cx NGTD #Pancytopenia Suspected 2/2 chronic malnutrition and EtOH abuse. Initialy - WBC 4.5, plt 110. On B12 and folate at home, macrocytic anemia. - Hgb stable but steadily decreasing, plt increased to 173. - DVT ppx initiated #Chronic Transaminitis AST/ALT 129/50 consistent with EtOH abuse. Elevated Alk Phos to 129. - RUQ US ordered - hepatic steatosis and gallbladder sludge. Abd CT showing hepatosplenomegaly, cholelithiasis - Hep panel, HIV, RPR negative for any underlying cause. Autoimmune labs neg thus far. #QT prolongation Suspected 2/2 electrolyte derangements. Initial EKG showing QT of 536. - Avoid QT prolonging medications - monitor on Tele #EtOH abuse Per hx - 4-5 shots of vodka daily. Upon further discussion today patient admits to drinking about a bottle of vodka/day. - give Thiamine, folic acid, PRN ativan; ASE protocol -has not been documented. CIWA score of 1 this AM per my exam. Will give a librium taper upon discharge and have close f/u with patient. Discussed with patient the importance of discontinuing alcohol use and not to mix librium with alcohol. - Counselled on cessation of alcohol use #Tobacco abuse - Encourage cessation, nicotine patch #H/o illicit drug use - Hep C, RPR, HIV - negative. UDS neg. Patient denies any current use. #HTN - Initially hypotensive on presentation, no home meds - orthostatics positive. BPs have been low/normal. Will continue to monitor. Encourage PO hydration. #COPD - no acute exacerbation, on 2L NC at home, will cont to keep sats 88-92% - Duoneb RAIN and can space to PRN as tolerated #Chronic lymphedema and poor physical status Fam hx of lymphedema - PT/OT/Wound care/Accounts Receivable Assistant to eval/tx - Will restart lasix - Alb 3.3 -> 2.7, preAlb low as well #Pickwickian syndrome - CPAP ordered at night Code: Full Diet: CC PPx: lovenox, protonix PCP: JOVITA Garcia Dispo: LOS >48hours. Discharge today. Case discussed with Dr. Scott. Addendum - Attending - Attending Attestation Date/Time: 09/30/19 0857 I personally evaluated the patient and discussed the management with Dr. Nair. I agree with the History, Examination, Assessment and Plan documented above with any addition or exceptions noted below. Patient overall doing well. Labs continue to improve, sodium level overall stable. Anticipate his illness was related to chronic alcoholism and acute alcoholic hepatitis. He will need to cease all alcohol, and will likely be sent home with Librium taper to prevent withdrawal symptoms. Patient seems motivated at current time. Awaiting further GI recs but possible dc later today. Will need outpatient lab check next week. Gent x1 for his asymptomatic serratia in urine.
[2019-09-30] MEDS: Magnesium Oxide 400 MG TAB PO SCH (09:32)
[2019-09-30] MEDS: Folic Acid 1 MG TAB PO SCH (09:32)
[2019-09-30] MEDS: Thiamine 100 MG TAB PO SCH (09:32)
[2019-09-30] MEDS: Cyanocobalamin (Vitamin B-12) 1,000 MCG TAB PO SCH (09:32)
[2019-09-30] MEDS: Furosemide 40 MG TAB PO SCH (09:32)
[2019-09-30] MEDS: Enoxaparin Sodium 40 MG/0.4 ML SYRINGE SC SCH (09:34)
[2019-09-30] MEDS ORDERED: Gentamicin Sulfate 490 MG in Sodium Chloride 0.9% 100 ML IVPB SCH (10:00)
[2019-09-30 10:07] LABS: INR-International Normal Ratio 1.1; PTT 33.1 SEC (22.9-36.1)
[2019-09-30] MEDS: PHOS-NAK 1 PKT PACK PO SCH ×3 (10:30→21:16)
[2019-09-30] MEDS: Nicotine 21 MG PATCH TD SCH (15:15)
--- NOTE | 2019-09-30 15:39 | PRG ---
DATE OF SERVICE: 09/30/2019 SUBJECTIVE: Mr. Morgan has no acute complaints today. He still feels weak when he gets up and goes to the bathroom. OBJECTIVE: VITAL SIGNS: Temperature 97.9, pulse 98, blood pressure 103/55. GENERAL: He is in no acute distress. He is alert and oriented x3. No asterixis. He is jaundiced. LUNGS: Clear to auscultation bilaterally. HEART: Regular rate and rhythm without murmur. ABDOMEN: Soft, nontender, nondistended. Bowel sounds are present. EXTREMITIES: No pitting lower extremity edema. LABORATORY DATA: White blood cell count 3.9, hemoglobin 8.1, platelets 173. INR 1.1. Creatinine 0.67, bilirubin 4.3, AST 105, ALT 36, alkaline phosphatase 350. IMPRESSION: 1. Acute alcoholic hepatitis. He has been drinking a bottle of vodka daily. His bilirubin is trending down along with the other labs as well. 2. Morbid obesity. 3. Orthostatic symptoms. 4. Hyponatremia. RECOMMENDATIONS: 1. I again discussed complete abstinence from alcohol. 2. Plan is for discharge home today. We will await additional lab work sent to evaluate for other causes of liver disease in addition to the alcohol. Job ID: [id number]
[2019-09-30] MEDS ORDERED: Meclizine HCl 12.5 MG TAB PO PRN (15:53)
[2019-09-30] MEDS ORDERED: Meclizine HCl 12.5 MG TAB PO SCH (16:00)
[2019-10-01 04:22] LABS: #Basophils 0.1 thou/uL (0.0-0.2); #Eosinphils 0.1 thou/uL (0.0-0.7); #Lymphocytes 1.6 thou/uL (1.20-3.40); #Monocytes 0.7 thou/uL (0.11-0.59); #Neutrophils 2.9 thou/uL (1.40-6.50); %Basophils 1.1 % (0.0-1.0); %Eosinophils 2.6 % (0.0-10.0); %Lymphocytes 29.8 % (21.0-51.0); %Monocytes 12.6 % (0.0-10.0); Hemoglobin 8.3 g/dL (14.0-18.0); Mean Corpuscular HGB CONC 33.7 g/dL (32.0-36.0); Mean Corpuscular Hemoglobin 34.5 pg (27.0-31.0); Mean Platelet Volume 8.5 fL (7.4-10.4); Platelet Count 233 thou/uL (130-400); RBC Distribution Width 17.1 % (11.5-14.5); Red Blood Cell (RBC) Count 2.39 mill/uL (4.70-6.10); White Blood Cell (WBC) Count 5.4 thou/uL (4.8-10.8)
[2019-10-01 04:43] LABS: ALT (SGPT) 36 U/L (8-55); AST (SGOT) 108 U/L (5-34); Albumin 2.7 g/dL (3.5-5.0); Alkaline Phosphatase 373 U/L (40-110); Anion Gap 13 mmol/L (10-20); BUN (Urea Nitrogen) 9 mg/dL (8.9-20.6); Bilirubin, Total 14.1 mg/dL (0.2-1.2); Calc. Creatinine Clearance 244 mL/min (70-130); Calcium 8.8 mg/dL (7.8-10.44); Carbon Dioxide 31 mmol/L (22-29); Chloride 86 mmol/L (98-107); Estimated GFR-MDRD Greater than 90; Globulin 2.9 g/dL (2.4-3.5); Glucose 94 mg/dL (70-105); Potassium 3.7 mmol/L (3.5-5.1); Protein, Total 5.6 g/dL (6.0-8.3); Sodium 126 mmol/L (136-145)
--- NOTE | 2019-10-01 06:20 | PDOC.FM ---
- Subjective Subjective: NAEO. Patient resting comfortably in bed. States that he still was dizzy going from laying to sitting position. States his SBP dropped 14 points when changing positions. States that his dizziness gets better after being seated a couple minutes. States that his is able ambulate getting only mildly dizzy. He is not sure if the meclizine really made any difference. States he has been drinking water. Endorses normal PO intake. Regular BMs. Urine is still dark in color. Otherwise feels well. No symptoms of withdrawal. - Objective MAR Reviewed: Yes Vital Signs & Weight: Vital Signs (12 hours) Temp Pulse Resp BP BP Pulse Ox 10/01/19 04:00 115/57 L 10/01/19 03:47 97.7 F 97 20 115/57 L 96 09/30/19 23:56 92 L 09/30/19 23:46 95 16 92 L 09/30/19 20:00 101/50 L 09/30/19 19:23 97.9 F 97 18 101/50 L 100 Weight Admit Weight 142.003 kg Weight 143.063 kg I&O: 09/29/19 09/30/19 10/01/19 06:59 06:59 06:59 Intake Total 4310 1370 1072 Output Total 1015 1150 850 Balance 3295 220 222 Result Diagrams: 10/01/19 03:54 10/01/19 03:54 Phys Exam - Physical Examination Constitutional: NAD morbidly obese HEENT: PERRLA, moist MMs sclera icteric Neck: supple, full ROM Respiratory: clear to auscultation bilateral Cardiovascular: RRR, no significant murmur Gastrointestinal: soft, non-tender, no distention, positive bowel sounds Musculoskeletal: pulses present LE non pitting edema Neurological: non-focal Psychiatric: normal affect, A&O x 3 Skin: no rash, normal turgor, cap refill <2 seconds Deviation from normal: skin of face and shoulders still jaundiced, mildly improved Dx/Plan (1) Orthostatic syncope Code(s): I95.1 - ORTHOSTATIC HYPOTENSION Status: Acute (2) High anion gap metabolic acidosis Code(s): E87.2 - ACIDOSIS Status: Acute (3) Chronic respiratory acidosis Code(s): E87.2 - ACIDOSIS Status: Chronic (4) Hypokalemia Code(s): E87.6 - HYPOKALEMIA Status: Acute (5) Hyperbilirubinemia Code(s): E80.6 - OTHER DISORDERS OF BILIRUBIN METABOLISM Status: Acute (6) Transaminitis Code(s): R74.0 - NONSPEC ELEV OF LEVELS OF TRANSAMNS & LACTIC ACID DEHYDRGNSE Status: Chronic (7) Pancytopenia Code(s): D61.818 - OTHER PANCYTOPENIA Status: Acute (8) QT prolongation Code(s): R94.31 - ABNORMAL ELECTROCARDIOGRAM [ECG] [EKG] Status: Acute (9) Physical deconditioning Code(s): R53.81 - OTHER MALAISE Status: Acute (10) Alcohol abuse Code(s): F10.10 - ALCOHOL ABUSE, UNCOMPLICATED Status: Chronic (11) HTN (hypertension) Code(s): I10 - ESSENTIAL (PRIMARY) HYPERTENSION Status: Chronic Qualifiers: (12) Lymphedema of both lower extremities Code(s): I89.0 - LYMPHEDEMA, NOT ELSEWHERE CLASSIFIED Status: Chronic (13) Tobacco abuse Code(s): Z72.0 - TOBACCO USE Status: Chronic - Plan Plan: #Acute Alcoholic Hepatitis Tbili 20.3, painless jaundice on exam, liver edge palpable. AST/ALT >2:1 ratio on admission. Significant alcohol use hx. Discriminant Function score of 31.6 - good prognosis. Meld-Na Score of 26. - Viral hepatitis serologies negative, elevated ferritin. AFP tumor marker negative. - Autoimmune markers negative thus far. HH labs pending. - Clinical picture fits alcoholic hepatitis. Supportive care at this point. GI consulted, appreciate recs. Do not recommend steroids at this time. Vit D replacement initiated. CMP with improved liver enzymes. - Continue to encourage patient daily to completely quit drinking alcohol from this point forward. Patient agreeable. States he is confident he will be able to quit. #Syncope 2/2 orthostatic hypotension Likely 2/2 volume depletion vs symptomatic anemia vs electrolyte derangement. Dizziness likely symptoms of orthostatic hypotension. - BP initially 100s/60s, s/p 3L NS and mIVF. Will encourage PO hydration. - Hgb stable, will continue to monitor with daily CBCs - Given meclizine to see if this helped with symptoms. - LO in Sept normal - unlikely cardiac origin. EKG did show sinus tach with QT prolonged. - Fall precautions #UTI, treated - Ucx grew out serratia and enteroccus. S/p 1x of high dose gentamicin. #Hyponatremia Na 120 on admission. s/p 3L NS and continued on mIVF. - Patient has had an appropriate rate of rise of sodium. Na 126 this AM. Will continue to monitor. Patient's baseline Na is 130s. Encourage PO hydration. #Hyperbilirubinemia 2/2 Acute Alcoholic Hepatitis - see above #Primary chronic respiratory alkalosis with secondary metabolic alkalosis Suspect 2/2 liver pathology vs pulm edema vs infection. ABG on 09/27: pH:7.52, pCO2: 38.1, O2 67.4, bicarb 30.6, base excess 7.3. CXR showing no acute abnormality. ASA level normal. - Lactic acidosis - now downtrended. - Blood cx: Streptococcus 1/2 - likely contaminent. Ur cx: serratia and strep- tx with 1 x dose of gent. #Pancytopenia Suspected 2/2 chronic malnutrition and EtOH abuse. Initialy - WBC 4.5, plt 110. On B12 and folate at home, macrocytic anemia. - Hgb stable but steadily decreasing, plt increased to 173. - DVT ppx initiated #Chronic Transaminitis AST/ALT 129/50 consistent with EtOH abuse. Elevated Alk Phos to 129. - RUQ US ordered - hepatic steatosis and gallbladder sludge. Abd CT showing hepatosplenomegaly, cholelithiasis - Hep panel, HIV, RPR negative for any underlying cause. Autoimmune labs neg thus far. #QT prolongation Suspected 2/2 electrolyte derangements. Initial EKG showing QT of 536. - Avoid QT prolonging medications - monitor on Tele #EtOH abuse Per hx - 4-5 shots of vodka daily. Upon further discussion today patient admits to drinking about a bottle of vodka/day. - give Thiamine, folic acid, PRN ativan; ASE protocol -has not been documented. CIWA score of 1 this AM per my exam. Will give a librium taper upon discharge and have close f/u with patient. Discussed with patient the importance of discontinuing alcohol use and not to mix librium with alcohol. - Counselled on cessation of alcohol use #Tobacco abuse - Encourage cessation, nicotine patch #H/o illicit drug use - Hep C, RPR, HIV - negative. UDS neg. Patient denies any current use. #HTN - Initially hypotensive on presentation, no home meds - orthostatics positive. BPs have been low/normal. Will continue to monitor. Encourage PO hydration. #COPD - no acute exacerbation, on 2L NC at home, will cont to keep sats 88-92% - Duoneb RAIN and can space to PRN as tolerated #Chronic lymphedema and poor physical status Fam hx of lymphedema - PT/OT/Wound care/Lock Setter to eval/tx - Will restart lasix - Alb 3.3 -> 2.7, preAlb low as well #Pickwickian syndrome - CPAP ordered at night Code: Full Diet: CC PPx: lovenox, protonix PCP: JOVITA Garcia Dispo: LOS >48hours. Discharge today. Case discussed with Dr. Scott. Addendum - Attending - Attending Attestation Date/Time: 10/01/19 1002 I personally evaluated the patient and discussed the management with Dr. Nair. I agree with the History, Examination, Assessment and Plan documented above with any addition or exceptions noted below. Patient overall stable. Continues to complain of orthostatic symptoms, consider bolus 1L fluids. This is likely due to poor oncotic pressure from his liver disease and will require behavioral modifications. Continue PT as needed. No evidence of withdrawals, labs stable. Overall stable for discharge if feeling well.
[2019-10-01 06:50] LABS: INR-International Normal Ratio 1.2; Prothrombin Time 14.8 SEC (12.0-14.7)
[2019-10-01 06:51] LABS: PTT 33.9 SEC (22.9-36.1)
[2019-10-01 07:28] LABS: Phosphorus 1.3 mg/dL (2.3-4.7)
[2019-10-01] MEDS: Furosemide 40 MG TAB PO SCH (08:15)
[2019-10-01] MEDS: Thiamine 100 MG TAB PO SCH (08:16)
[2019-10-01] MEDS: Magnesium Oxide 400 MG TAB PO SCH (08:16)
[2019-10-01] MEDS: Cyanocobalamin (Vitamin B-12) 1,000 MCG TAB PO SCH (08:17)
[2019-10-01] MEDS: Enoxaparin Sodium 40 MG/0.4 ML SYRINGE SC SCH (08:17)
[2019-10-01] MEDS: Folic Acid 1 MG TAB PO SCH (08:17)
[2019-10-01] MEDS: PHOS-NAK 1 PKT PACK PO SCH ×2 (08:17→11:42)
[2019-10-01 08:21] VITALS: TEMP 97.8
[2019-10-01] MEDS ORDERED: PHOS-NAK 1 PKT PACK PO SCH ×2 (10:00→11:45)
[2019-10-01] MEDS ORDERED: Sodium Chloride 0.45% 1,000 ML IV SCH (10:00)
[2019-10-01] MEDS ORDERED: Sodium Phosphate 15 MMOL in Sodium Chloride 0.9% 250 ML 250 ML IVPB SCH (10:45)
[2019-10-01 12:08] VITALS: BP 115/54
[2019-10-01 13:39] VITALS: BMI 48.0
[2019-10-02 13:10] LABS: Smooth Muscle Total ABS 38 Units (0-19)
--- NOTE | 2019-10-02 13:27 | DIS ---
DATE OF ADMISSION: 09/27/2019 DATE OF DISCHARGE: 10/01/2019 RESIDENT: Meredith Nair MD ADMITTING ATTENDING: Balbir Servin MD DISCHARGE ATTENDING: George Scott MD. CONSULTS: Gastroenterology. PROCEDURES: None. DISCHARGE MEDICATIONS: 1. Vitamin D3 7000 units oral daily. 2. Nicotine 21 mg transdermal every 24 hours. 3. Aspirin 81 mg oral daily. 4. Vitamin B12 of 1000 mcg oral daily. 5. Lasix 40 mg oral daily. 6. Folic acid 1 mg oral daily. 7. Protonix 40 mg oral daily. 8. Magnesium oxide 400 mg oral daily. 9. Ipratropium inhalation every 6 hours as needed. 10. Meclizine every 4-6hours as needed. DISCONTINUED MEDICATIONS: None. PRIMARY DIAGNOSES: 1. Acute alcoholic hepatitis. 2. Syncope secondary to orthostatic hypotension. 3. Urinary tract infection. 4. Hyponatremia. 5. Hyperbilirubinemia secondary to acute alcoholic hepatitis. SECONDARY DIAGNOSES: 1. Alcohol abuse. 2. Tobacco abuse. 3. Hypertension. 4. Chronic obstructive pulmonary disease. 5. Chronic lymphedema with poor physical status. 6. Pickwickian syndrome. HISTORY OF PRESENT ILLNESS/HOSPITAL COURSE: This is a 49-year-old male who presented to the ER with a history of syncope x3 days. The patient states that he would get dizzy when changing from a sitting to a standing position. His vision would go dark, dizzy, and faint. These episodes did not last very long. The patient also endorses that over the last few days, his urine has been brown. The patient was found to have elevated liver enzymes on admission with an AST of 120 and Tbili of 19.6. The patient also had a sodium lvel of 120 on admission. The patient did endorse a significant alcohol history of drinking almost a liter of vodka per day. The patient also presented with very jaundiced skin. The patient was admitted with alcohol hepatitis and was admitted for further workup. GI was consulted, who recommended supportive therapy. Further work up for secondary causes of the patient's findings were negative including autoimmune causes, infectious causes and inherited causes. There are a few results still pending at the time of discharge. The patient's liver enzymes, tbili and electrolyte levels improved throughout his stay. The patient remained vitally stable throughout his stay. The patient was given meclizine to help with dizziness although his dizziness is likely orthostatic in nature and will improve with time. The patient did have 1/2 blood cultures grow out gram neg but this is likely contaminant. The patient's urine cx grew out serratia - this was treated with a one time dose of high dose gentamicin. The patient did not ever go into withdraw during his stay. He was closely monitored with the ASE protocol. Several conversations with specialists in the Medicine Team were had with the patient to completely stop drinking alcohol. The patient was adamant that he would be able to quit drinking completely. The patient was given a Librium taper upon discharge. Discussed with the patient the importance to NOT drink while taking this medication. He acknowledged understanding of this. The patient's other chronic conditions remained stable throughout his stay. DISPOSITION: Stable. DISCHARGE INSTRUCTIONS: 1. Location: Home. 2. Diet: Heart healthy, consistent carbohydrate, low-sodium. 3. Activity: ad audrey 4. Follow up with PCP, Dr. Garcia at [facility] and within 1 week. Job ID: [id number] [facility]
--- NOTE | 2019-10-02 18:48 | PQF ---
[employer] PACHECO GOLDBERG JASON MD *r* [id number] CLINICAL DOCUMENTATION CLARIFICATION FORM: POST DISCHARGE Addendum to original discharge summary date: ____ Late entry note date: __ Date: 10/02/19 ATTN: George Santiago Please exercise your independent, professional judgment in responding to the clarification form. Clinical indicators are provided on the bottom of this form for your review Can you please further clarify the specificity of malnutrition? Please check appropriate box(s): [ ] Protein Calorie Malnutrition: [ ] Mild [ ] Moderate [ ] Severe [ ] Other Malnutrition (please specify) __ [ ] Other diagnosis [ ] Unable to determine In addition, please specify: Present on Admission (POA): [ ] Yes [ ] No [ ] Unable to determine CLINICAL INDICATORS - SIGNS / SYMPTOMS / LABS H and P pg.11- 49 years old Morbid obese male H and P pg.11- Patients relates marked weight loss >100lbs since april 2019 BMI 48 H and P pg.6- Pancytopenia 2/2 chronic malnutrition and EtOH abuse RISK FACTORS H and P pg.4- orthostatic hypotension Tobacco abuse- H and P pg.5 HTN- H and P pg.5 COPD- H and P pg.5 JULIA- H and P pg.11 Chronic alcohol abuse- H Palliative Consult pg.1 Everyday smoker- Palliative Consult pg.1 Acute alcoholic hepatitis- PN 09/30 pg.1 Pickwickian syndrome-Family Med PN 10/01 pg.5 TREATMENT: IV fluids- MAR I and O monitoring Dietary Consult Multi Vitamins- MAR Moderate Malnutrition (in acute illness) Energy Intake: <75% of estimated energy requirement for > 7 days Weight Loss: 1-2%/1 week; 5%/ 1 month; 7.5%/3 months Other: mild body fat loss; mild muscle mass loss; mild fluid accumulation; Severe Malnutrition (in acute illness) Energy Intake: < 50% of estimated energy requirement for > 5 days Weight Loss: >1-2%/1 week; >5%/1 month; >7.5%/3 months Other: moderate body fat loss; moderate muscle mass loss; moderate- severe fluid accumulation; measurably reduced supervisor printing and stamping strength Moderate Malnutrition (in chronic illness) Energy Intake: <75% of estimated energy requirement for >1 month Weight Loss: 5%/1 month; 7.5%/3 months; 10%/6 months; 20%/1 year Other: mild body fat loss; mild muscle mass loss; mild fluid accumulation Severe Malnutrition (in chronic illness) Energy Intake: <75% of estimated energy requirement for >1 month Weight Loss: >5%/1 month; >7.5%/3 months; >10%/6 months; >20%/1 year Other: severe body fat loss; severe muscle mass loss; severe fluid accumulation ; measurably reduced supervisor printing and stamping strength (This form is maintained as a part of the permanent medical record) 2014 [employer]. All Rights Reserved Qasim [not provided] MTDNick
--- NOTE | 2019-10-02 18:55 | PQF ---
PACHECO GOLDBERG JASON MD *r* [id number] CLINICAL DOCUMENTATION CLARIFICATION FORM: POST DISCHARGE Addendum to original discharge summary date: ____ Late entry note date: __ DATE: 10/02/19 ATTN: George Qiu Please exercise your independent, professional judgment in responding to the clarification form. Clinical indicators are provided on the bottom of this form for your review Please check appropriate box(s): HEART FAILURE: A. TYPE: [ ] Systolic / HFrEF [ ] Diastolic / HFpEF [ ] Combined Systolic / Diastolic B. ACUITY [ ] Acute [ ] Acute on Chronic [ ] Chronic [ ] No CHF [ ] Other diagnosis [ ] Unable to determine In addition, please specify: Present on Admission (POA): [ ] Yes [ ] No [ ] Unable to determine For continuity of documentation, please document condition throughout progress notes and discharge summary. Thank You. CLINICAL INDICATORS - SIGNS / SYMPTOMS / LABS Palliative Consult pg.2- "Hx of CHF" Palliative Consult pg.2- acute on chronic diastolic heart failure Chest X ray 09/27- no evidence of acute cardiopulmonary disease RISKS: H and P pg.4- orthostatic hypotension Tobacco abuse- H and P pg.5 HTN- H and P pg.5 COPD- H and P pg.5 JULIA- H and P pg.11 Chronic alcohol abuse- H Palliative Consult pg.1 Everyday smoker- Palliative Consult pg.1 CKD- H and P pg.4 Acute alcoholic hepatitis- PN 09/30 pg.1 Pickwickian syndrome-Family Med PN 10/01 pg.5 TREATMENTS: Chest X ray 09/27 Furosemide Lasix 40mg PO daily- mAR 09/30 IV fluids- DEC I and O monitoring (This form is maintained as a part of the permanent medical record) 2014 [employer]. All Rights Reserved [email or web address] [not provided] MTDD
== END 2019-10-01 15:24 | disposition home or self-care (01) | DRG 433 ==
LOC: ERS 12:13 → 2NO 14:00 → ERHOLD 14:57 → 2NO 09-28 12:13
PROVIDERS: ADMIT Family Medicine; ATTEND Family Medicine
DX: K70.10 Alcoholic hepatitis without ascites (principal); E87.2 Acidosis; D61.818 Other pancytopenia; E87.3 Alkalosis; E87.1 Hypo-osmolality and hyponatremia; E46 Unspecified protein-calorie malnutrition; Z68.42 Body mass index [BMI] 45.0-49.9, adult; E66.2 Morbid (severe) obesity with alveolar hypoventilation; F10.188 Alcohol abuse with other alcohol-induced disorder; I13.0 Hypertensive heart and chronic kidney disease with heart failure and stage 1 through stage 4 chronic kidney disease, or unspecified chronic kidney disease; J96.10 Chronic respiratory failure, unspecified whether with hypoxia or hypercapnia; I50.22 Chronic systolic (congestive) heart failure; N39.0 Urinary tract infection, site not specified; Z51.5 Encounter for palliative care; I95.1 Orthostatic hypotension; E78.5 Hyperlipidemia, unspecified; J44.9 Chronic obstructive pulmonary disease, unspecified; E87.6 Hypokalemia; I45.81 Long QT syndrome; I89.0 Lymphedema, not elsewhere classified; D53.9 Nutritional anemia, unspecified; N18.9 Chronic kidney disease, unspecified; R31.9 Hematuria, unspecified; B95.2 Enterococcus as the cause of diseases classified elsewhere; B96.89 Other specified bacterial agents as the cause of diseases classified elsewhere; F17.210 Nicotine dependence, cigarettes, uncomplicated; Z90.49 Acquired absence of other specified parts of digestive tract; Z88.5 Allergy status to narcotic agent; Z79.82 Long term (current) use of aspirin; Z79.899 Other long term (current) drug therapy; Z99.81 Dependence on supplemental oxygen; Z88.8 Allergy status to other drugs, medicaments and biological substances
CPT/HCPCS: 36415; 71045; 74178; 76705; 80053; 80061; 80074; 80306; 80307; 81003; 81015; 81256; 82105; 82247; 82306; 82390; 82550; 82728; 82805; 83010; 83036; 83516; 83550; 83605; 83615; 83690; 83735; 83930; 83935; 83970; 84100; 84134; 84145; 84300; 84443; 84484; 85025; 85060; 85610; 85730; 86038; 86225; 86780; 86803; 87040; 87077; 87086; 87149; 87186; 87389; 93005; 93010; 94640; 94760; J1580; J1650; J3480; J3490; J7050; J7620; J8597; Q9967

== ENCOUNTER 2020-03-26 15:29 | Inpatient (IN) | payer OTHER ==
[2020-03-26] MEDS ORDERED: Lorazepam 2 MG/ML VIAL ONE (16:01)
[2020-03-26 16:07] LABS: #Basophils 0.1 thou/uL (0.0-0.2); #Lymphocytes 1.8 thou/uL (1.20-3.40); #Monocytes 0.6 thou/uL (0.11-0.59); #Neutrophils 5.7 thou/uL (1.40-6.50); %Basophils 1.1 % (0.0-1.0); %Eosinophils 0.5 % (0.0-10.0); %Lymphocytes 21.4 % (21.0-51.0); %Monocytes 7.8 % (0.0-10.0); %Neutrophils 69.3 % (42.0-75.0); Mean Corpuscular HGB CONC 34.6 g/dL (32.0-36.0); Mean Platelet Volume 8.6 fL (7.4-10.4); Platelet Count 128 thou/uL (130-400); RBC Distribution Width 19.6 % (11.5-14.5); Red Blood Cell (RBC) Count 3.99 mill/uL (4.70-6.10); White Blood Cell (WBC) Count 8.2 thou/uL (4.8-10.8)
[2020-03-26 16:24] LABS: ALT (SGPT) 42 U/L (8-55); AST (SGOT) 82 U/L (5-34); Acetaminophen Less than 6.0 mcg/mL (10.0-30.0); Albumin 3.5 g/dL (3.5-5.0); Alcohol Less than 10 mg/dL (Less than 10); Alkaline Phosphatase 263 U/L (40-110); Anion Gap 16 mmol/L (10-20); BUN (Urea Nitrogen) 6 mg/dL (8.9-20.6); Bilirubin, Total 6.8 mg/dL (0.2-1.2); CK (CPK) 97 U/L (30-200); Calc. Creatinine Clearance 0 mL/min (70-130); Calcium 8.6 mg/dL (7.8-10.44); Carbon Dioxide 34 mmol/L (22-29); Estimated GFR-MDRD Greater than 90; Globulin 3.3 g/dL (2.4-3.5); Glucose 111 mg/dL (70-105); Potassium 3.4 mmol/L (3.5-5.1); Protein, Total 6.8 g/dL (6.0-8.3); Salicylate Less than 8.0 mg/dL (15.0-30.0)
--- NOTE | 2020-03-26 16:25 | RAD ---
FRONTAL RADIOGRAPH CHEST PORTABLE UPRIGHT: 03/26/20 COMPARISON: 09/27/19. HISTORY: Seizure. FINDINGS: There is stable prominence of the right hilar shadow. There are areas of increased linear density in bilateral perihilar regions, bilateral mid lung zones, and the left base, similar when compared to th e prior examination, suggesting a combination of scar and volume loss. No pneumothorax, lobar consoli dation or alveolar edema. IMPRESSION: Chronic appearing findings as detailed above. POS: [facility]
[2020-03-26 16:29] LABS: Anisocytosis SLIGHT = 6-15 cells (100X) (0-5/hpf); Chloride 69 mmol/L (98-107); MDiff Complete? YES; Macrocytosis SLIGHT = 6-15 cells (100X) (0-5/hpf); Platelet Morphology Comment Appears Decreased; Polychromasia SLIGHT = 2-3 cells (100X) (0-2/hpf); Sodium 116 mmol/L (136-145)
--- NOTE | 2020-03-26 16:55 | CT ---
HEAD CT WITHOUT CONTRAST: 03/26/20 COMPARISON: None. HISTORY: Seizure. TECHNIQUE: Axial CT imaging at 5 mm intervals from vertex through skull base without contrast. FINDINGS: The imaged paranasal sinuses and mastoid air cells are well aerated. No displaced calvarial fracture. No intracranial hemorrhage, midline shift, mass effect, or ventricular enlargement. IMPRESSION: No acute findings. POS: [facility]
[2020-03-26 17:39] LABS: Bilirubin Moderate (Negative); Blood, Urine Negative (Negative); Glucose, Urine (Dipstick) Negative (Negative); Leukocyte Negative (Negative); Nitrite Negative (Negative); Protein, Urine (Dipstick) Negative (Neg-Trace)
[2020-03-26 17:49] LABS: Amphetamine Not Detected (NotDetected); Barbiturates Screen Not Detected (NotDetected); Benzodiazepine Screen Not Detected (NotDetected); Cocaine Metabolite Screen Not Detected (NotDetected); Medtox Control Line Valid? VALID (VALID); Medtox Reader # READER 4; Methadone Not Detected (NotDetected); Methamphetamine Not Detected (NotDetected); Opiate Screen Not Detected (NotDetected); Oxycodone Screen Not Detected (NotDetected); Phencyclidine (PCP) Not Detected (NotDetected); THC/Cannabinoid Screen Not Detected (NotDetected); Tricyclic Screen Not Detected (NotDetected)
[2020-03-26 17:53] LABS: Clarity Clear (Clear)
[2020-03-26 17:55] LABS: Bacteria/HPF None Seen HPF (None Seen); RBC/HPF 0-3 HPF (0-3); Squamous Epithelial 0-3 HPF (0-3); WBC/HPF 0-3 HPF (0-3)
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
[2020-03-26] MEDS ORDERED: Ondansetron ODT 4 MG TAB PO PRN (19:12)
[2020-03-26] MEDS ORDERED: Loperamide HCl 2 MG CAP PO PRN (19:12)
[2020-03-26] MEDS ORDERED: Calcium Carbonate 500 MG ChewTAB PO PRN (19:12)
[2020-03-26] MEDS ORDERED: Cosyntropin 250 MCG VIAL SLOW IVP SCH (19:15)
[2020-03-26 19:27] LABS: Lactic Acid 0.8 mmol/L (0.5-2.2)
[2020-03-26 19:30] LABS: BUN (Urea Nitrogen) 5 mg/dL (8.9-20.6); Calc. Creatinine Clearance 0 mL/min (70-130); Calcium 8.3 mg/dL (7.8-10.44); Estimated GFR-MDRD Greater than 90; Glucose 99 mg/dL (70-105)
[2020-03-26 19:39] LABS: Anion Gap 18 mmol/L (10-20); Carbon Dioxide 32 mmol/L (22-29)
[2020-03-26 19:45] LABS: INR-International Normal Ratio 1.1; Prothrombin Time 14.4 sec (12.0-14.7)
[2020-03-26 19:45] LABS: Chloride 72 mmol/L (98-107); Sodium 119 mmol/L (136-145)
[2020-03-26 19:46] LABS: PTT 35.3 sec (22.9-36.1)
[2020-03-26] MEDS ORDERED: Sodium Chloride 0.9% 1,000 ML IV SCH (20:15)
[2020-03-26] MEDS ORDERED: Labetalol HCl 100 MG/20 ML VIAL SLOW IVP PRN (20:56)
[2020-03-26] MEDS: Famotidine 20 MG TAB PO SCH (22:15)
[2020-03-26] MEDS: chlordiazePOXIDE HCl 25 MG CAP PO SCH (22:15)
[2020-03-26 22:35] VITALS: BMI 54.2
[2020-03-26] MEDS ORDERED: Potassium Chloride 20 MEQ TAB PO SCH (23:59)
[2020-03-27] MEDS: Gentamicin Ophth Ointment 0.3% 3.5 gm Tube EA EYE SCH ×7 (00:31→21:22)
[2020-03-27 00:49] LABS: Anion Gap 13 mmol/L (10-20); BUN (Urea Nitrogen) 5 mg/dL (8.9-20.6); Calc. Creatinine Clearance 262 mL/min (70-130); Calcium 8.2 mg/dL (7.8-10.44); Carbon Dioxide 35 mmol/L (22-29); Estimated GFR-MDRD Greater than 90; Glucose 90 mg/dL (70-105)
[2020-03-27 01:00] LABS: Chloride 74 mmol/L (98-107); Potassium 2.8 mmol/L (3.5-5.1); Sodium 119 mmol/L (136-145)
[2020-03-27] MEDS ORDERED: Sodium Chloride 0.9% 1,000 ML IV SCH (01:20)
[2020-03-27] MEDS ORDERED: Potassium Chloride 40 MEQ in Sodium Chloride 0.9% 500 ML IVPB SCH (02:00)
[2020-03-27 04:19] LABS: Anisocytosis SLIGHT = 6-15 cells (100X) (0-5/hpf); Band 5 % (5-11); Eosinophils 2 % (0-10); Hemoglobin 13.4 g/dL (14.0-18.0); Lymphocytes 37 % (21-51); MDiff Complete? YES; Macrocytosis SLIGHT = 6-15 cells (100X) (0-5/hpf); Mean Corpuscular HGB CONC 34.3 g/dL (32.0-36.0); Mean Corpuscular Hemoglobin 35.1 pg (27.0-31.0); Mean Platelet Volume 9.8 fL (7.4-10.4); Monocytes 6 % (0-10); Neutrophil 50 % (42-75); Platelet Count 133 thou/uL (130-400); Platelet Morphology Comment Appears Adequate; Polychromasia SLIGHT = 2-3 cells (100X) (0-2/hpf); RBC Distribution Width 19.6 % (11.5-14.5); Red Blood Cell (RBC) Count 3.82 mill/uL (4.70-6.10); White Blood Cell (WBC) Count 7.7 thou/uL (4.8-10.8)
[2020-03-27] MEDS: chlordiazePOXIDE HCl 25 MG CAP PO SCH ×3 (05:10→18:28)
--- NOTE | 2020-03-27 05:28 | PDOC.FM ---
- Subjective Subjective: Patient doing well this morning. Denies n/v/d. Patient states he would like to decrease the amount he drinks, and does not desire to quit drinking overall. Discussed that patient had a prior positive smooth muscle antibody during previous hospitalization. He denies following up with a GI physician at that time. - Objective Vital Signs & Weight: Vital Signs (12 hours) Temp Pulse Resp Pulse Ox 03/27/20 04:00 99.4 F 03/27/20 00:00 98.9 F 03/26/20 23:59 100 16 100 03/26/20 20:39 98.4 F Weight Weight 161.842 kg Most Recent Monitor Data Heart Rate from ECG 92 NIBP 145/91 NIBP BP-Mean 109 Respiration from ECG 16 SpO2 93 Result Diagrams: 03/27/20 03:09 03/27/20 06:34 Phys Exam - Physical Examination Constitutional: NAD HEENT: moist MMs, sclera anicteric Neck: supple, full ROM Respiratory: wheezing present (scant throughout all lung jacques) Cardiovascular: RRR, no significant murmur Gastrointestinal: soft, non-tender BLE non-pitting edema Neurological: non-focal, moves all 4 limbs Psychiatric: normal affect, A&O x 3 Skin: no rash, normal turgor Dx/Plan (1) Seizure Code(s): R56.9 - UNSPECIFIED CONVULSIONS Status: Acute (2) Hypokalemia Code(s): E87.6 - HYPOKALEMIA Status: Acute (3) Hyponatremia Code(s): E87.1 - HYPO-OSMOLALITY AND HYPONATREMIA Status: Acute (4) CKD (chronic kidney disease) Code(s): N18.9 - CHRONIC KIDNEY DISEASE, UNSPECIFIED Status: Acute (5) Alcohol abuse Code(s): F10.10 - ALCOHOL ABUSE, UNCOMPLICATED Status: Chronic (6) HTN (hypertension) Code(s): I10 - ESSENTIAL (PRIMARY) HYPERTENSION Status: Chronic Qualifiers: (7) Lymphedema of both lower extremities Code(s): I89.0 - LYMPHEDEMA, NOT ELSEWHERE CLASSIFIED Status: Chronic (8) Transaminitis Code(s): R74.0 - NONSPEC ELEV OF LEVELS OF TRANSAMNS & LACTIC ACID DEHYDRGNSE Status: Chronic - Plan Plan: Patient is a 49M with PMHx of alcohol abuse, lympmhedema, HTN, COPD, HLD, Aflutter s/p ablation, CKD, HFpEF that is admitted for: #Seizure - Unknown etiology, does not have known seizure disorder - Likely 2/2 to alcohol withdrawal vs hyponatremia. - Will monitor. #Hyponatremia - Na 116 > 119 - Urine osm 67, Urine Na 400, Posm 240 - Likely hypotonic hyponatremia with intravascular volume depletion. - Pending AM ACTH stim test to r/o adrenal insufficiency - NS @ 125mL/hour as patient's sodium has not made change @ 75ml/hr and @100ml/ hr #Hyperbilirubinemia #Positive antibody to smooth muscle - TBili improved from last admission. - Autoimmune hepatitis workup last admission, determined likely to be alcoholic hepatitis. - Will monitor, and recommend patient see GI on an outpatient basis #Chronic Transaminitis - AST/ALT 82/42 consistent with EtOH abuse - Elevated Alk Phos to 263 #EtOH abuse - Daily drinker, endorses 6-9 beverages. - Thiamine and Folic acid daily - ASE surveillance protocol, monitor closely - Started on Librium q6hr overnight. Patient does not wish to quit drinking. Will pursue the ASE medication protocol at this time. 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 - Continue to Monitor edema and respiratory status closely. - Echo 01/2019 PCP: JOVITA Garcia IVF: NS @ 125cc/hr Code: Full Diet: Heart healthy DVT: Lovenox Dispo: Inpatient, IMCU. ASE protocol for alcohol withdrawal. Continued monitoring of sodium correction. Anticipate hospitalization >48hours. Addendum - Physician - Physician Attestation Date/Time: 03/27/20 1044 I personally performed or re-performed the physical examination and medical decision making. I have verified all resident documentation or findings, including history, physical exam and/or medical decision making. replace electrolytes. Increased NS to 125mL/hr since Na stable. continue frequent lab draws. Goal Na replacement 8 mEq in 24 hrs. Continue librium while in hospital. Can transfer to stroke unit.
[2020-03-27 06:57] LABS: Anion Gap 13 mmol/L (10-20); BUN (Urea Nitrogen) 4 mg/dL (8.9-20.6); Calc. Creatinine Clearance 269 mL/min (70-130); Carbon Dioxide 33 mmol/L (22-29); Chloride 76 mmol/L (98-107); Estimated GFR-MDRD Greater than 90; Glucose 90 mg/dL (70-105); Magnesium 1.9 mg/dL (1.6-2.6); Phosphorus 1.8 mg/dL (2.3-4.7)
[2020-03-27 07:03] LABS: Sodium 119 mmol/L (136-145)
[2020-03-27] MEDS ORDERED: Potassium Phosphate 30 MMOL in Sodium Chloride 0.9% 500 ML IVPB SCH ×2 (07:45→11:30)
[2020-03-27] MEDS ORDERED: Thiamine HCl 200 MG/2 ML VIAL IM SCH (07:45)
[2020-03-27] MEDS ORDERED: Diazepam 5 MG TAB PO PRN (07:45)
[2020-03-27] MEDS: Sodium Chloride 0.9% 1,000 ML IV SCH ×3 (08:37→18:27)
[2020-03-27] MEDS: Enoxaparin Sodium 40 MG/0.4 ML SYRINGE SC SCH (08:40)
[2020-03-27] MEDS: Diazepam 5 MG TAB PO SCH ×2 (08:41→09:06)
[2020-03-27] MEDS: Famotidine 20 MG TAB PO SCH ×2 (08:41→21:22)
[2020-03-27] MEDS: Multivitamin W/ Minerals 1 TAB PO SCH (08:42)
[2020-03-27] MEDS: Folic Acid 1 MG TAB PO SCH (08:43)
[2020-03-27] MEDS ORDERED: Thiamine 100 MG TAB PO SCH (09:00)
[2020-03-27] MEDS ORDERED: Folic Acid 1 MG TAB PO SCH (09:00)
[2020-03-27 11:07] LABS: Anion Gap 13 mmol/L (10-20); BUN (Urea Nitrogen) 4 mg/dL (8.9-20.6); Calc. Creatinine Clearance 269 mL/min (70-130); Carbon Dioxide 33 mmol/L (22-29); Chloride 78 mmol/L (98-107); Estimated GFR-MDRD Greater than 90; Glucose 92 mg/dL (70-105); Magnesium 2.2 mg/dL (1.6-2.6); Potassium 3.3 mmol/L (3.5-5.1); Sodium 121 mmol/L (136-145)
[2020-03-27 11:11] LABS: Phosphorus 1.7 mg/dL (2.3-4.7)
[2020-03-27 15:22] LABS: Anion Gap 13 mmol/L (10-20); BUN (Urea Nitrogen) 4 mg/dL (8.9-20.6); Calc. Creatinine Clearance 252 mL/min (70-130); Calcium 8.1 mg/dL (7.8-10.44); Carbon Dioxide 34 mmol/L (22-29); Chloride 79 mmol/L (98-107); Estimated GFR-MDRD Greater than 90; Glucose 102 mg/dL (70-105); Magnesium 2.2 mg/dL (1.6-2.6); Potassium 3.6 mmol/L (3.5-5.1); Sodium 122 mmol/L (136-145)
[2020-03-27 15:29] LABS: Phosphorus 2.9 mg/dL (2.3-4.7)
[2020-03-27] MEDS: Mometasone 200 MCG/Formoterol 5 MCG 120 PUFF INHALER INH SCH (18:21)
[2020-03-27 18:25] LABS: Anion Gap 13 mmol/L (10-20); BUN (Urea Nitrogen) 5 mg/dL (8.9-20.6); Calc. Creatinine Clearance 258 mL/min (70-130); Calcium 8.2 mg/dL (7.8-10.44); Carbon Dioxide 35 mmol/L (22-29); Chloride 79 mmol/L (98-107); Estimated GFR-MDRD Greater than 90; Glucose 97 mg/dL (70-105); Potassium 3.5 mmol/L (3.5-5.1); Sodium 123 mmol/L (136-145)
--- NOTE | 2020-03-27 19:39 | CON ---
DATE OF CONSULTATION: HISTORY OF PRESENT ILLNESS: Nikita Morgan is a 49-year-old obese gentleman, weight 158 kg, presented with dizziness, weakness, lightheadedness and shortness of breath. He had been drinking six packs of vodka every day, smoking a pack a day. He has low-flow oxygen. He has sees Dr. Negrete in our office, but not recently. He was lightheaded and confused, came to the hospital. His sodium was very low. This morning, he is somewhat more appropriate. He has not seized. He still appears somewhat lethargic. PAST MEDICAL HISTORY: As outlined recent hospitalization for a month and a half with multiorgan failure with marked weight loss. He said he has now gained 30 pounds back. He has history of sleep apnea, probably COPD, chronic stasis, morbid obesity, atrial fibrillation, hypertension, alcohol abuse and tobacco abuse. PREVIOUS SURGERIES: Appendix, ankle, tonsils. HOME MEDICATIONS: 1. Aspirin. 2. Lasix 40. 3. Folic acid. 4. Protonix. 5. Meclizine. ALLERGIES: COUMADIN. SOCIAL HISTORY: He is disabled. REVIEW OF SYSTEMS: Otherwise negative. PHYSICAL EXAMINATION: VITAL SIGNS: Temperature 99, pulse 102, blood pressure 120/83. CHEST: Decreased breath sounds. Minimal rhonchi. CARDIAC: Normal S1, S2. No gallops. ABDOMEN: No masses. EXTREMITIES: Trace edema. NEUROLOGIC: He is awake, responsive. LABORATORY DATA: White count 7000, H and H 13 and 39, and platelet count is normal. Sodium was 119 on admission, it is 121 right now. He was started on normal saline. IMAGING: CT brain was normal. Chest x-ray shows evidence of chronic changes, but no acute infiltrates. ASSESSMENT: 1. Hyponatremia secondary to alcohol abuse. 2. Encephalopathy secondary to hyponatremia. 3. Morbid obesity. 4. Chronic obstructive pulmonary disease. 5. Chronic stasis. 6. Agree with thiamine and folic acid replacement. 7. He needs ongoing inpatient counseling regarding his alcohol abuse. 8. He needs to follow up with Dr. Negrete at some stage to get an outpatient sleep study done. I have added some Dilaudid to his present treatment. We will follow on the MICU. This is a consultation note, 70 minutes, 50% direct patient care. Job ID: [id number]
[2020-03-27 23:02] LABS: Anion Gap 12 mmol/L (10-20); BUN (Urea Nitrogen) 6 mg/dL (8.9-20.6); Calc. Creatinine Clearance 249 mL/min (70-130); Calcium 8.1 mg/dL (7.8-10.44); Carbon Dioxide 35 mmol/L (22-29); Chloride 81 mmol/L (98-107); Estimated GFR-MDRD Greater than 90; Glucose 97 mg/dL (70-105); Potassium 3.5 mmol/L (3.5-5.1); Sodium 124 mmol/L (136-145)
[2020-03-28] MEDS: chlordiazePOXIDE HCl 25 MG CAP PO SCH ×4 (01:13→17:45)
[2020-03-28] MEDS: Gentamicin Ophth Ointment 0.3% 3.5 gm Tube EA EYE SCH ×5 (02:50→17:47)
[2020-03-28] MEDS ORDERED: Diazepam 5 MG TAB PO PRN (04:00)
[2020-03-28 05:06] LABS: Anion Gap 11 mmol/L (10-20); BUN (Urea Nitrogen) 5 mg/dL (8.9-20.6); Calc. Creatinine Clearance 269 mL/min (70-130); Calcium 7.7 mg/dL (7.8-10.44); Carbon Dioxide 34 mmol/L (22-29); Chloride 86 mmol/L (98-107); Estimated GFR-MDRD Greater than 90; Glucose 96 mg/dL (70-105); Potassium 3.2 mmol/L (3.5-5.1); Sodium 128 mmol/L (136-145)
[2020-03-28] MEDS: Sodium Chloride 0.9% 1,000 ML IV SCH (05:06)
[2020-03-28] MEDS: Mometasone 200 MCG/Formoterol 5 MCG 120 PUFF INHALER INH SCH (06:40)
[2020-03-28 07:01] LABS: Anion Gap 10 mmol/L (10-20); BUN (Urea Nitrogen) 6 mg/dL (8.9-20.6); Calc. Creatinine Clearance 269 mL/min (70-130); Calcium 8.1 mg/dL (7.8-10.44); Carbon Dioxide 36 mmol/L (22-29); Chloride 84 mmol/L (98-107); Estimated GFR-MDRD Greater than 90; Glucose 95 mg/dL (70-105); Potassium 3.2 mmol/L (3.5-5.1); Sodium 127 mmol/L (136-145)
--- NOTE | 2020-03-28 08:20 | PDOC.FM ---
- Subjective Subjective: Patient doing okay this morning. States he was able to use CPAP overnight. He does not have a home CPAP as he was previously denied by his insurance for this. He needs to have an outpatient sleep study done but says he cannot afford it at this time. Patient also needs outpatient GI follow up but patient states he is not really willing to go to a clinic at this time due to COVID19 outbreak. Patient expresses that he does not desire to quit drinking at this time, but maybe will attempt to drink a little less. - Objective MAR Reviewed: Yes Vital Signs & Weight: Vital Signs (12 hours) Temp Pulse Resp BP Pulse Ox 03/28/20 07:25 98.2 F 105 H 21 H 118/68 95 03/28/20 06:39 99 18 98 03/28/20 04:00 99.1 F 101 H 18 136/73 96 03/28/20 00:02 107 H 19 94 L Weight Weight 161.842 kg Most Recent Monitor Data Heart Rate from ECG 105 NIBP 103/69 NIBP BP-Mean 80 Respiration from ECG 18 SpO2 95 I&O: 03/27/20 03/28/20 03/29/20 06:59 06:59 06:59 Intake Total 4477 Output Total 1350 Balance 3127 Result Diagrams: 03/27/20 03:09 03/28/20 06:36 Phys Exam - Physical Examination Constitutional: NAD morbidly obese HEENT: moist MMs, sclera anicteric Neck: no JVD, supple, full ROM Respiratory: no wheezing, clear to auscultation bilateral Cardiovascular: RRR, no significant murmur Gastrointestinal: soft, positive bowel sounds Musculoskeletal: pulses present BLE non-pitting edema Neurological: normal sensation, moves all 4 limbs Psychiatric: normal affect, A&O x 3 Skin: no rash, normal turgor Dx/Plan (1) Seizure Code(s): R56.9 - UNSPECIFIED CONVULSIONS Status: Acute (2) Hyponatremia Code(s): E87.1 - HYPO-OSMOLALITY AND HYPONATREMIA Status: Acute (3) Alcohol abuse Code(s): F10.10 - ALCOHOL ABUSE, UNCOMPLICATED Status: Chronic (4) Lymphedema of both lower extremities Code(s): I89.0 - LYMPHEDEMA, NOT ELSEWHERE CLASSIFIED Status: Chronic (5) Morbid obesity with BMI of 50.0-59.9, adult Code(s): E66.01 - MORBID (SEVERE) OBESITY DUE TO EXCESS CALORIES; Z68.43 - BODY MASS INDEX (BMI) 50.0-59.9, ADULT Status: Chronic (6) Pickwickian syndrome Code(s): E66.2 - MORBID (SEVERE) OBESITY WITH ALVEOLAR HYPOVENTILATION Status : Chronic - Plan Plan: Patient is a 49M with PMHx of alcohol abuse, lympmhedema, HTN, COPD, HLD, Aflutter s/p ablation, CKD, HFpEF that is admitted for: #Seizure - Unknown etiology, does not have known seizure disorder - Likely 2/2 to alcohol withdrawal vs hyponatremia. - Will monitor. #Hyponatremia - Na 116 > 119 >124 > 128 - Urine osm 67, Urine Na 400, Posm 240 - Likely hypotonic hyponatremia with intravascular volume depletion. - AM ACTH stim test to r/o adrenal insufficiency--results wnl - NS @ 125mL/hour as patient's sodium has not made change @ 75ml/hr and @100ml/ hr #Hyperbilirubinemia #Positive antibody to smooth muscle - TBili improved from last admission. - Autoimmune hepatitis workup last admission, determined likely to be alcoholic hepatitis. - Will monitor, and recommend patient see GI on an outpatient basis #Chronic Transaminitis - AST/ALT 82/42 consistent with EtOH abuse - Elevated Alk Phos to 263 #EtOH abuse - Daily drinker, endorses 6-9 beverages. - Thiamine and Folic acid daily - ASE surveillance protocol, monitor closely - Started on Librium q6hr overnight. Patient does not wish to quit drinking. Will continue ASE medication protocol at this time. #Tobacco abuse - encourage cessation #HTN - prn antihypertensives overnight #COPD - no acute exacerbation, on 3L NC at home, will cont to keep sats 88-92%, currently at home O2 req - duoneb q6hr jeb #Chronic lymphadenma and poor physical status - PT/OT/Wound care/[facility] to eval/tx - Alb 3.5 - PreAlb low #JULIA and [facility] - CPAP at night - will check [facility] records to see why patient previously denied CPAP, ultimately he will likely need an outpatient sleep study with Dr. Negrete or ordered through PCP #HFpEF - Will hold lasix until hyponatremia is resolved. - Continue to Monitor edema and respiratory status closely. - Echo 01/2019 PCP: JOVITA Garcia IVF: NS @ 125cc/hr Code: Full Diet: Heart healthy DVT: Lovenox Dispo: Stable, admitte to Inpatient on stroke/tele unit. ASE protocol for alcohol withdrawal. Continued monitoring of sodium correction. Anticipate discharge in next 24-48hours. Addendum - Attending - Attending Attestation Date/Time: 03/28/20 2138 I personally evaluated the patient and discussed the management with Dr. Treadwell. I agree with the History, Examination, Assessment and Plan documented above with any addition or exceptions noted below. Patient here with chronic HypoNa due to alcoholism. Will start salt tabs at this time, d/c IVF. Counselling on cessation. If labs stable this afternoon, stable for discharge home. He is on his baseline chronic O2 requirement.
[2020-03-28] MEDS ORDERED: Potassium Chloride 20 MEQ TAB PO SCH (08:30)
[2020-03-28] MEDS ORDERED: Magnesium Oxide 400 MG TAB PO SCH (09:00)
[2020-03-28] MEDS ORDERED: Thiamine 100 MG TAB PO SCH (09:00)
[2020-03-28] MEDS: Famotidine 20 MG TAB PO SCH (09:12)
[2020-03-28] MEDS: Folic Acid 1 MG TAB PO SCH (09:14)
[2020-03-28] MEDS: Enoxaparin Sodium 40 MG/0.4 ML SYRINGE SC SCH (09:14)
[2020-03-28] MEDS: Multivitamin W/ Minerals 1 TAB PO SCH (09:14)
[2020-03-28] MEDS ORDERED: Sodium Chloride 1 GM TAB PO SCH ×3 (09:45→21:00)
[2020-03-28 11:43] LABS: Actual Bicarbonate (HCO3a) 33.9 mEq/L (22-28); Analyzer IN Cardio OR; Base Excess (BEa) 9.3 mEq/L (-2.0 to +3.0); CO2 Tension 45.8 mmHg (35.0-45.0); Calcium, Ionized 1.06 mmol/L (1.12-1.30); Carboxyhemoglobin (COHb) 2.6 gm% (0.0-3.0); Hemoglobin (Hb) 12.5 g/dL (14.0-18.0); Potassium - ABG Lab 3.35 mmol/L (3.70-5.30); pH, Arterial 7.49 (7.35-7.45)
[2020-03-28 11:51] LABS: Puncture Site RRA
[2020-03-28 15:18] LABS: Anion Gap 11 mmol/L (10-20); BUN (Urea Nitrogen) 4 mg/dL (8.9-20.6); Calc. Creatinine Clearance 283 mL/min (70-130); Calcium 8.1 mg/dL (7.8-10.44); Carbon Dioxide 32 mmol/L (22-29); Chloride 87 mmol/L (98-107); Estimated GFR-MDRD Greater than 90; Glucose 110 mg/dL (70-105); Potassium 3.6 mmol/L (3.5-5.1); Sodium 126 mmol/L (136-145)
[2020-03-28 15:46] VITALS: BP 127/60; TEMP 98.6
--- NOTE | 2020-03-29 08:33 | DIS ---
DATE OF ADMISSION: 03/26/2020 DATE OF DISCHARGE: 03/28/2020 RESIDENT: Tonia Treadwell DO ADMITTING ATTENDING: Katharine Meneses MD DISCHARGE ATTENDING: George Scott MD CONSULTS: Pulmonology, Dr. Robertson. PROCEDURES: 1. Brain CT on March 26, 2020: No acute findings. 2. Chest x-ray on March 26, 2020: Chronic findings. Comparison to September 27, 2019, chest x-ray. There is stable prominence of the right hilar shadow. There are areas of increased linear density in bilateral perihilar regions, bilateral mid lung zones, and the left base which was similar compared to prior exam, suggesting a combination of scar and volume loss. PRIMARY DIAGNOSIS: Hyponatremia. SECONDARY DIAGNOSES: 1. Seizure, likely secondary to alcohol withdrawal versus hyponatremia. 2. Hyperbilirubinemia. 3. Chronic transaminitis. 4. Alcohol abuse. 5. Tobacco abuse. 6. Hypertension. 7. Chronic obstructive pulmonary disease. 8. Chronic lymphedema. 9. Obstructive sleep apnea and Pickwickian syndrome. 10. Heart failure with preserved ejection fraction. DISCHARGE MEDICATIONS: 1. Aspirin 81 mg p.o. daily. 2. Furosemide 40 mg p.o. daily. 3. Folic acid 1 mg p.o. daily. 4. Pantoprazole 40 mg p.o. daily. 5. Meclizine hydrochloride 12.5 mg p.o. t.i.d. p.r.n. 6. Potassium chloride 10 mEq p.o. daily. 7. Sodium chloride 1 g p.o. b.i.d. DISCONTINUED MEDICATIONS: None. HISTORY OF PRESENT ILLNESS/HOSPITAL COURSE: The patient is a 49-year-old male who presented to [facility] Emergency Department on March 26, 2020, after a seizure. The patient stated that he had been feeling bad for 2-3 days prior to admission and had soft stools all day. The patient stated that he usually drinks 6-9 alcoholic beverages per day, but he drank less the day before because he felt bad. He did endorse decreased urination and had been eating a lot of fast food. Denied any sick contacts at the time. The patient stated he was sitting in his living room and had a seizure, he has no recollection of the event, but his witnessed and reported it. Per the , the seizure lasted for 2 minutes approximately 3 hours prior to arrival. The patient normally wears 3 L of O2 via nasal cannula at home. In the emergency department, he was given 2 L of normal saline, thiamine, and Ativan 2 mg. The patient was admitted to inpatient in the IMCU initially for hyponatremia and a seizure of unknown etiology. He was eventually transitioned to the Stroke Unit. The patient's initial sodium was 116, thought to be a hypotonic hyponatremia due to intravascular volume depletion. Urine osm was 67, urine sodium 400, plasma osm 240. The patient did have an ACTH stimulation test to rule out adrenal insufficiency, this testing was within normal limits. The patient was also noted to have an elevated AST 82, ALT 42, consistent with alcohol abuse. The patient was continued on thiamine and folic acid supplementation daily. He was placed on ASE protocol. He was also started on Librium q.6 hours, which was continued during this hospitalization. The patient expressed to multiple providers on each day of admission that he had no desire to quit drinking. He said he would consider decreasing the amount of drinking but did not think he would ever stop altogether. The patient's home Lasix was held during this hospitalization. The patient was able to use a CPAP during this hospitalization at night. He will ultimately need an outpatient sleep study in order to get approved by insurance to have a CPAP at home, however, he would likely greatly benefit from this. The patient's lab work did suggest a metabolic alkalosis primarily with respiratory acidosis compensation. However, this respiratory acidosis is probably being contributed to as well by his obstructive sleep apnea and Pickwickian syndrome. On March 28, 2020, the patient's sodium had improved to 126, this was thought to be near his baseline. He was deemed stable for discharge at that point. The patient will need to continue taking salt tabs for sodium supplementation given that he has poor nutrition at home. DISPOSITION: Stable. DISCHARGE INSTRUCTIONS: 1. Location: Home. 2. Diet: Heart healthy. 3. Activity: As tolerated. 4. Follow up with Dr. Garcia, PCP at [facility] in 2 to 3 days. 5. Follow up with Dr. Negrete in 2 weeks, will need outpatient sleep study performed. 6. Referral placed to GI, Dr. Pal, for followup of positive antismooth muscle antibody. The patient was encouraged to make an appointment with [facility] crenshaw. Job ID: [id number]
--- NOTE | 2020-03-30 07:24 | PQF ---
PACHECO GOLDBERG JASON MD [id number] [facility] [id number] CLINICAL DOCUMENTATION CLARIFICATION FORM: POST DISCHARGE Addendum to original discharge summary date: ____ Late entry note date: __ DATE:03/30/2020 ATTN: George Byrne Please exercise your independent, professional judgment in responding to the clarification form. Clinical indicators are provided on the bottom of this form for your review Please check appropriate box(s): Encephalopathy: Etiology:[ X] Metabolic [ ] Toxic [ ] Other (please specify) [ ] Ruled out Encephalopathy [ ] Other diagnosis [ ] Unable to determine In addition, please specify: Present on Admission (POA): [ X ] Yes [ ] No [ ] Unable to determine For continuity of documentation, please document condition throughout progress notes and discharge summary. Thank You. CLINICAL INDICATORS - SIGNS / SYMPTOMS / LABS Laboratory 03/26 Sodium 116, Potassium 3.4, Chloride 69, Carbon Dioxide 34 H&P p1 03/26 Dr Hernandez He states he usually drinks 6-9 alcoholic beverages per volodymyr and he drank less yesterday because he felt bad H&P p1 03/26 Dr Hernandez presents after seizure H&P p5 03/26 Dr Hernandez Seizure, etiology 2/2 alcohol withdrawal vs hyponatremia Consult p2 03/27 DrAmin Encephalopathy secondary to hyponatremia H&P p7 03/26 Dr Hernandez He is not sure about duration of seizure or confusion Consult p1 03/27 Dramin He was lightheaded and confused RISK FACTORS H&P p5 03/26 Hyponatremia H&P p5 03/26 Alcohol abuse H&P p5 03/26 - Smoker H&P p6 03/26 - HTN H&P p6 03/26 - COPD H&P p6 03/26 - HfpEF H&P p6 03/26 JULIA and [facility] TREATMENTS: Admitted to ICU DS 03/28DEC 24 IVF Sodium Chloride 1L DEC 24 IV Ativan 2mg DEC 24 Thiamine Hcl 100mg IM DEC 24 Theragran M 1tab oral DEC 24 Valium [address] Brain 03/26 (This form is maintained as a part of the permanent medical record) 2014 [employer]. All Rights Reserved [email or web address]
== END 2020-03-28 17:54 | disposition home or self-care (01) | DRG 896 ==
LOC: ERS 15:29 → IMCU/EMU 17:25 → 2SE 20:39
PROVIDERS: ADMIT Family Medicine; ATTEND Family Medicine
PROC: 5A1935Z Respiratory Ventilation, Less than 24 Consecutive Hours (ICD-10-PCS; principal; 2020-03-27)
DX: F10.239 Alcohol dependence with withdrawal, unspecified (principal); G93.41 Metabolic encephalopathy; E87.1 Hypo-osmolality and hyponatremia; E66.2 Morbid (severe) obesity with alveolar hypoventilation; Z68.43 Body mass index [BMI] 50.0-59.9, adult; I50.32 Chronic diastolic (congestive) heart failure; E87.4 Mixed disorder of acid-base balance; I13.0 Hypertensive heart and chronic kidney disease with heart failure and stage 1 through stage 4 chronic kidney disease, or unspecified chronic kidney disease; R56.9 Unspecified convulsions; E80.6 Other disorders of bilirubin metabolism; R74.0 Nonspecific elevation of levels of transaminase and lactic acid dehydrogenase [LDH]; J44.9 Chronic obstructive pulmonary disease, unspecified; I89.0 Lymphedema, not elsewhere classified; E86.9 Volume depletion, unspecified; E78.5 Hyperlipidemia, unspecified; I48.91 Unspecified atrial fibrillation; F17.210 Nicotine dependence, cigarettes, uncomplicated; F17.220 Nicotine dependence, chewing tobacco, uncomplicated; N18.9 Chronic kidney disease, unspecified; K70.10 Alcoholic hepatitis without ascites; E87.6 Hypokalemia; Z90.49 Acquired absence of other specified parts of digestive tract; Z88.8 Allergy status to other drugs, medicaments and biological substances; Z79.899 Other long term (current) drug therapy; Z79.82 Long term (current) use of aspirin; Z99.81 Dependence on supplemental oxygen
CPT/HCPCS: 36415; 70450; 71045; 80048; 80053; 80306; 80307; 80400; 81003; 82533; 82550; 82805; 83605; 83735; 83930; 83935; 84100; 84134; 84300; 84484; 85025; 85610; 85730; 87040; 87086; 87149; 93005; 94640; 94660; J1650; J2060; J3411; J3475; J3480; J3490; J7030; J7050; J7620

== ENCOUNTER 2020-06-14 13:56 | Inpatient (IN) | payer OTHER ==
--- NOTE | 2020-06-14 14:41 | RAD ---
Chest AP view INDICATION: Dyspnea and COPD COMPARISON: March 26, 2020 FINDINGS: Lungs: There is new linear airspace opacities in the right lower lobe suspicious for subsegmental vo lume loss. No consolidation is evident. Cardiac silhouette: Mild cardiomegaly is stable. Pulmonary vasculature: Normal Pleural spaces: No pleural effusion or pneumothorax is demonstrated. Upper abdomen: No abnormality seen. Osseous structures: No acute osseous abnormality. Additional findings: None. IMPRESSION: New linear airspace opacity right lower most suspicious for subsegmental volume loss. No overt consol idation is evident to suggest presence of pneumonia. Stable mild cardiomegaly.
[2020-06-14 15:14] LABS: #Eosinphils 0.1 thou/uL (0.0-0.7); #Lymphocytes 0.7 thou/uL (1.20-3.40); #Monocytes 0.4 thou/uL (0.11-0.59); #Neutrophils 2.9 thou/uL (1.40-6.50); %Basophils 0.6 % (0.0-1.0); %Eosinophils 1.5 % (0.0-10.0); %Lymphocytes 18.1 % (21.0-51.0); %Monocytes 10.2 % (0.0-10.0); %Neutrophils 69.6 % (42.0-75.0); Hemoglobin 11.3 g/dL (14.0-18.0); Mean Corpuscular HGB CONC 33.8 g/dL (32.0-36.0); Mean Corpuscular Hemoglobin 33.2 pg (27.0-31.0); Mean Corpuscular Volume 98.1 fL (78.0-98.0); Mean Platelet Volume 10.9 fL (7.4-10.4); Platelet Count 102 thou/uL (130-400); RBC Distribution Width 20.8 % (11.5-14.5); Red Blood Cell (RBC) Count 3.41 mill/uL (4.70-6.10); White Blood Cell (WBC) Count 4.1 thou/uL (4.8-10.8)
[2020-06-14 15:24] LABS: INR-International Normal Ratio 1.2; PTT 33.5 sec (22.9-36.1); Prothrombin Time 15.4 sec (12.0-14.7)
--- NOTE | 2020-06-14 15:38 | ULT ---
RIGHT UPPER QUADRANT ULTRASOUND CLINICAL HISTORY: Right upper quadrant pain. COMPARISON: None FINDINGS: Limited image detail due to overlying bowel gas and body habitus Liver:Diffuse fatty infiltration with coarse echotexture Intrahepatic bile ducts: No intrahepatic or extrahepatic biliary dilation.; Common bile duct: , But was not seen. Gallbladder: Distended with internal debris and small stones. The gallbladder wall was moderate to pr ominently thickened. No pericholecystic fluid was evident. No sonographic Leon's sign is reported. Leon's sign:None Main portal vein:Not well seen Pancreas:Visualized pancreas appears normal. Right kidney: Right kidney measures 10.6 x 5.8 x 5.7 cm. No focal renal lesion or hydronephrosis. Additional findings: None. IMPRESSION: 1. Limited exam due to body habitus and overlying bowel gas. 2. Findings of chronic liver disease and fatty infiltration. 3. Cholelithiasis with gallbladder wall thickening distention without definite pericholecystic fluid or sonographic Leon's sign reported. Findings are equivocal by sonography for acute cholecystitis. HIDA scan may be helpful for further evaluation
[2020-06-14 15:54] LABS: Albumin 3.1 g/dL (3.5-5.0)
[2020-06-14 15:55] LABS: Chloride 80 mmol/L (98-107); Potassium 3.4 mmol/L (3.5-5.1); Sodium 128 mmol/L (136-145)
[2020-06-14 15:56] LABS: Calcium 8.5 mg/dL (7.8-10.44)
[2020-06-14 15:57] LABS: Globulin 2.9 g/dL (2.4-3.5); Glucose 101 mg/dL (70-105)
[2020-06-14 15:58] LABS: Anion Gap 16 mmol/L (10-20); Bilirubin, Total 20.9 mg/dL (0.2-1.2); Carbon Dioxide 35 mmol/L (22-29)
[2020-06-14 15:59] LABS: Alcohol Less than 10 mg/dL (Less than 10); Alkaline Phosphatase 287 U/L (40-110)
[2020-06-14 16:00] LABS: Calc. Creatinine Clearance 0 mL/min (70-130); Estimated GFR-MDRD 45
[2020-06-14 16:01] LABS: BUN (Urea Nitrogen) 21 mg/dL (8.9-20.6)
[2020-06-14 16:02] LABS: ALT (SGPT) 76 U/L (8-55); AST (SGOT) 168 U/L (5-34)
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
[2020-06-14 18:31] LABS: Acetaminophen Less than 6.0 mcg/mL (10.0-30.0)
[2020-06-14] MEDS ORDERED: Calcium Carbonate 500 MG ChewTAB PO PRN (20:30)
[2020-06-14] MEDS ORDERED: Ondansetron ODT 4 MG TAB PO PRN (20:30)
[2020-06-14] MEDS ORDERED: Lorazepam 2 MG/ML VIAL SLOW IVP PRN (20:30)
[2020-06-14] MEDS ORDERED: Ondansetron PF 4 MG/2 ML Vial IVP PRN (20:30)
[2020-06-14] MEDS ORDERED: Potassium Chloride 20 MEQ TAB PO SCH (20:45)
[2020-06-14] MEDS ORDERED: Lactated Ringer's 1,000 ML IV SCH (20:45)
[2020-06-14] MEDS ORDERED: Famotidine/PF 20 mg/2ml Vial SLOW IVP SCH (21:00)
--- NOTE | 2020-06-14 21:22 | CT ---
EXAM: CT brain without contrast HISTORY: Dizziness after fall COMPARISON: 03/26/2020 TECHNIQUE: Multiple contiguous axial images were obtained and a CT of the brain without contrast. FINDINGS: The brain is normal in morphology and attenuation without focal lesions or confluent areas of infarction. There is no evidence of hydrocephalus, intracranial hemorrhage, or extra-axial fluid collection. The calvarium and overlying soft tissues are unremarkable. The visualized paranasal sinuses and masto id air cells are well aerated. IMPRESSION: No evidence of acute intracranial abnormality
[2020-06-14 21:43] LABS: Acetaminophen Less than 6.0 mcg/mL (10.0-30.0); Alcohol Less than 10 mg/dL (Less than 10); Bilirubin, Direct Greater than 10.0 mg/dL (0.1-0.3); Lipase 36 U/L (8-78); Salicylate Less than 8.0 mg/dL (15.0-30.0)
[2020-06-14] MEDS: Multivitamins, Adult 10 ML, Folic Acid 1 MG, Thiamine HCl 100 MG in Dextrose 5 %-0.45 %... IV SCH (21:52)
[2020-06-14] MEDS: Polymyxin B Sulf/Trimethoprim 10 ML OPHTH DROPS OP SCH (21:52)
[2020-06-14 22:07] LABS: Anion Gap 20 mmol/L (10-20); BUN (Urea Nitrogen) 20 mg/dL (8.9-20.6); Calc. Creatinine Clearance 159 mL/min (70-130); Calcium 8.3 mg/dL (7.8-10.44); Carbon Dioxide 29 mmol/L (22-29); Chloride 84 mmol/L (98-107); Estimated GFR-MDRD 56; Glucose 86 mg/dL (70-105); Potassium 3.6 mmol/L (3.5-5.1); Sodium 129 mmol/L (136-145)
[2020-06-14 22:38] LABS: Magnesium 1.7 mg/dL (1.6-2.6)
[2020-06-14] MEDS ORDERED: Azithromycin 250 MG TAB PO SCH (22:45)
[2020-06-14 22:51] LABS: Phosphorus Less than 1.0 mg/dL (2.3-4.7)
[2020-06-14 22:58] LABS: HBSAB Concentration Less than 8.00 mIU/mL; HBSAg Index 0.16 S/CO (0-0.99); Hep B Core Total Ab Non-Reactive (NonReactive); Hep B Core Total Index 0.07 S/CO (0-0.79); Hep B Surf AB Non-Reactive (NonReactive); Hep B Surf Ag Non-Reactive S/CO (NonReactive); Hep C IgG Ab Non-Reactive (NonReactive); Hep C Index 0.37 S/CO (0-0.79)
[2020-06-14] MEDS ORDERED: PHOS-NAK 1 PKT PACK PO SCH ×2 (23:00→23:15)
[2020-06-15] MEDS: cefTRIAXone\\ROCEPHIN 1 GM in Sodium Chloride 0.9% 100 ML IVPB SCH (00:01)
[2020-06-15 00:11] LABS: HIV (1/2) Antibody/Antigen Reflxed Confirmation (NonReactive)
[2020-06-15] MEDS ORDERED: Metoprolol Tartrate 5 MG/5 ML VIAL IVP SCH (01:00)
[2020-06-15] MEDS ORDERED: Lactated Ringer's 500 ML IV SCH ×2 (02:00→04:15)
[2020-06-15] MEDS ORDERED: Lactated Ringer's 1,000 ML IV SCH (02:00)
[2020-06-15] MEDS: Lactated Ringer's 1,000 ML IV SCH ×4 (02:10→21:12)
[2020-06-15 04:21] LABS: INR-International Normal Ratio 1.2; PTT 36.9 sec (22.9-36.1); Prothrombin Time 15.6 sec (12.0-14.7)
[2020-06-15 04:32] LABS: #Eosinphils 0.1 thou/uL (0.0-0.7); #Lymphocytes 1.2 thou/uL (1.20-3.40); #Monocytes 0.5 thou/uL (0.11-0.59); #Neutrophils 1.9 thou/uL (1.40-6.50); %Basophils 0.4 % (0.0-1.0); %Eosinophils 2.2 % (0.0-10.0); %Lymphocytes 31.9 % (21.0-51.0); %Monocytes 13.2 % (0.0-10.0); %Neutrophils 52.3 % (42.0-75.0); Hemoglobin 10.3 g/dL (14.0-18.0); Mean Corpuscular HGB CONC 32.7 g/dL (32.0-36.0); Mean Corpuscular Hemoglobin 32.4 pg (27.0-31.0); Mean Platelet Volume 8.8 fL (7.4-10.4); Platelet Count 71 thou/uL (130-400); RBC Distribution Width 21.1 % (11.5-14.5); Red Blood Cell (RBC) Count 3.17 mill/uL (4.70-6.10); White Blood Cell (WBC) Count 3.6 thou/uL (4.8-10.8)
[2020-06-15 04:40] LABS: ALT (SGPT) 65 U/L (8-55); AST (SGOT) 154 U/L (5-34); Albumin 2.6 g/dL (3.5-5.0); Alkaline Phosphatase 242 U/L (40-110); Anion Gap 13 mmol/L (10-20); BUN (Urea Nitrogen) 18 mg/dL (8.9-20.6); Bilirubin, Total 17.3 mg/dL (0.2-1.2); Calc. Creatinine Clearance 149 mL/min (70-130); Carbon Dioxide 33 mmol/L (22-29); Chloride 84 mmol/L (98-107); Estimated GFR-MDRD 52; Globulin 2.8 g/dL (2.4-3.5); Glucose 111 mg/dL (70-105); Potassium 3.2 mmol/L (3.5-5.1); Protein, Total 5.4 g/dL (6.0-8.3); Sodium 127 mmol/L (136-145)
[2020-06-15 04:42] LABS: Phosphorus Less than 1.0 mg/dL (2.3-4.7)
[2020-06-15] MEDS ORDERED: Potassium Chloride 20 MEQ TAB PO SCH (05:30)
[2020-06-15] MEDS ORDERED: PHOS-NAK 1 PKT PACK PO SCH (05:30)
--- NOTE | 2020-06-15 06:57 | PDOC.FM ---
- Subjective Subjective: Patient reports that he is tired because he did not sleep well last night. Otherwise he reports that he has no concerns. He denies SOB, chest pain, abdominal pain, N/V. We discussed his positive HIV Ab test. He is unsure how he would've gotten it and denies IVDA and sexual activity since his last negative test in September. He does report that he has received blood transfusion during hospitalizations over that time. Overnight he has been having low BP typically in 80-90/50-60. Patient is asymptomatic besides the fatigue. - Objective MAR Reviewed: Yes Vital Signs & Weight: Vital Signs (12 hours) Temp Pulse Resp BP Pulse Ox 06/15/20 03:48 98.6 F 104 H 21 H 94 L 06/15/20 03:40 110 H 86/40 L 06/15/20 01:50 110 H 70/34 L 06/14/20 23:30 98.5 F 116 H 18 160/65 H 100 06/14/20 20:00 98.2 F 98 Weight Weight 169.445 kg Most Recent Monitor Data Heart Rate from ECG 114 NIBP 105/58 NIBP BP-Mean 73 Respiration from ECG 17 SpO2 99 I&O: 06/13/20 06/14/20 06/15/20 06:59 06:59 06:59 Intake Total 3680 Output Total 425 Balance 3255 Result Diagrams: 06/15/20 03:55 06/15/20 03:55 Phys Exam - Physical Examination Constitutional: NAD BL conjunctival injection, purulent dc Neck: supple, full ROM mild diffuse wheezing, poor air movement Cardiovascular: RRR, no significant murmur, no rub Gastrointestinal: soft, non-tender, no distention Significant edema with overlying chronic skin changes in BLE Neurological: non-focal, moves all 4 limbs Psychiatric: normal affect, A&O x 3 Skin: no rash, cap refill <2 seconds Dx/Plan - Plan Plan: Acute hepatic failure - concern for acute on chronic hepatic failure - Admission AST 180, ALT 79, bilirubin 20.9, history of etoh abuse - AM CBC, CMP, COAGs - Protonix 40 mg QD - Consulted GI Hypotension - Likely 2/2 hypotension given low UOP with IVF treatment - patient does not appear hypervolemic on exam - 500 mL NS bolus New onset HIV - positive HIV Ab screen - Obtain viral load, CD4 count, RPR - Consult ID Dizziness - may be position related, fluid status related, or etoh/tobacco withdrawal related - CTH negative - consider MRI brain based on sx hx CHRIS - Hepatorenal syndrome vs ATN vs HIVAN - baseline SCr <1 - mIVF - monitor SCr Bilateral Conjunctivitis - Likely bacterial given course and purulent discharge - polymyxin B/ TMP eye drops QID for 5 d Alcohol abuse - history of DT, question of seizure caused by DT vs hyponatremia - likely cause of chronic liver disease - ASE protocol - 2 mg Ativan q4h PRN per protocol - banana bag QD Hypophosphatemia - PO repletion - monitor in AM Hypokalemia - replete 20 mEq PO - Home KCl QD - continue to monitor Hyponatremia - chronic, appears to be near baseline - continue to monitor COPD - home med rec - Q4h PRN duonebs - check procal for possible PNA given CXR CHF - HFpEF - monitor fluid status - consider restarting lasix with improvement of CHRIS Lymphedema - Chronic condition - Monitor skin for breakdown Hx of A flutter s/p ablation - Monitor HR - episodes of A fib/flutter overnight, asymptomatic, HR downtrending to normal range VTE: hold 2/2 liver dysfunction and hx of bleed Fluids: LR @ 140 mls/hr Diet: Code: Full Dispo: Admit to stroke inpatient
[2020-06-15 08:09] LABS: Acetaminophen Less than 6.0 mcg/mL (10.0-30.0); Alcohol Less than 10 mg/dL (Less than 10); Salicylate Less than 8.0 mg/dL (15.0-30.0)
[2020-06-15] MEDS: Azithromycin 250 MG TAB PO SCH (08:59)
[2020-06-15] MEDS ORDERED: Sodium Chloride 0.9% 500 ML IV SCH (09:00)
[2020-06-15] MEDS: Polymyxin B Sulf/Trimethoprim 10 ML OPHTH DROPS OP SCH ×4 (09:29→21:10)
[2020-06-15] MEDS: PHOS-NAK 1 PKT PACK PO SCH ×2 (11:20→18:20)
[2020-06-15 12:00] LABS: Anion Gap 15 mmol/L (10-20); BUN (Urea Nitrogen) 17 mg/dL (8.9-20.6); Calc. Creatinine Clearance 214 mL/min (70-130); Calcium 8.1 mg/dL (7.8-10.44); Carbon Dioxide 32 mmol/L (22-29); Chloride 85 mmol/L (98-107); Estimated GFR-MDRD 79; Glucose 112 mg/dL (70-105); Sodium 128 mmol/L (136-145)
[2020-06-15 12:30] LABS: SARS-CoV-2 MS2 Positive; SARS-CoV-2 N Gene Negative; SARS-CoV-2 S Gene Negative; SARS-CoV-2 by NAA Not Detected (NotDetected); SARS-CoV-2 orf1ab Negative
--- NOTE | 2020-06-15 14:45 | PRG ---
DATE OF SERVICE: 06/15/2020 ADDENDUM: This is an addendum to the note of Dr. Jarad Plunkett. Mr. Morgan is a morbidly obese, 49-year-old, heavy smoking male, with a possible history of sleep apnea, who presented with fatigue, lightheadedness, and hypotension yesterday. There was a concern for hepatic failure as well as he had a bilirubin in excess of 21 and is a heavy drinker. We also recently discovered a positive HIV and are further working this up. In the event, this morning, he is awake, alert, appears to be in no acute distress. LABORATORY DATA: On admission, his white count was 4100, hemoglobin 11.3 with hematocrit of 33.4. Chemistry showed sodium initially at 129, potassium 3.6, chloride of 84, BUN 20, creatinine was 1.36. Liver enzymes were elevated with an AST of 154 and ALT of 65 and alkaline phosphatase elevated at 242. His total bilirubin on admission was 20.9. His HIV antigen was positive. Hepatitis B panel and C panel so far are negative. We will consult Dr. Raines. We will continue to evaluate and monitor his liver status. He also has evidence of acute alcoholic hepatitis and we are treating this as well. Job ID: [id number]
[2020-06-15 15:32] LABS: Anion Gap 12 mmol/L (10-20); BUN (Urea Nitrogen) 16 mg/dL (8.9-20.6); Calc. Creatinine Clearance 185 mL/min (70-130); Calcium 8.2 mg/dL (7.8-10.44); Carbon Dioxide 35 mmol/L (22-29); Chloride 85 mmol/L (98-107); Estimated GFR-MDRD 67; Glucose 106 mg/dL (70-105); Potassium 3.6 mmol/L (3.5-5.1); Sodium 128 mmol/L (136-145)
[2020-06-15 15:40] LABS: Bilirubin Large (Negative); Blood, Urine Negative (Negative); Protein, Urine (Dipstick) Trace mg/dL (Neg-Trace); Urobilinogen > or = 8.0 mg/dL (Less than 2)
[2020-06-15 15:41] LABS: Clarity Clear (Clear)
[2020-06-15 15:42] LABS: Phosphorus Less than 1.0 mg/dL (2.3-4.7)
[2020-06-15 15:42] LABS: Glucose, Urine (Dipstick) Unable to Interpret mg/dL (Negative); Leukocyte Unable to Interpret (Negative); Nitrite Unable to Interpret (Negative)
[2020-06-15 15:43] LABS: Ketone, Urine Negative (Negative)
[2020-06-15 15:49] LABS: Bacteria/HPF None Seen HPF (None Seen); RBC/HPF 0-3 HPF (0-3); Squamous Epithelial 0-3 HPF (0-3)
[2020-06-15 15:50] LABS: Transitional Epithelial 0-3 HPF (None Seen)
[2020-06-15 17:00] LABS: Actual Bicarbonate (HCO3a) 34.9 mEq/L (22-28); Base Excess (BEa) 11.2 mEq/L (-2.0 to +3.0); CO2 Tension 42.1 mmHg (35.0-45.0); Calcium, Ionized (arterial) 0.99 mmol/L (1.12-1.30); Carboxyhemoglobin (COHb) 2.1 gm% (0.0-3.0); Potassium - ABG Lab 3.38 mmol/L (3.70-5.30); pH, Arterial 7.54 (7.35-7.45)
[2020-06-15 17:04] LABS: ALV-art Gradient 121.235 (0-20); O2 Tension (PaO2), arterial 54.3 mmHg (80.0-100.0); Puncture Site RRA
--- NOTE | 2020-06-15 19:31 | CON ---
DATE OF CONSULTATION: 06/15/2020 REASON FOR CONSULTATION: Alcoholic hepatitis. HISTORY OF PRESENT ILLNESS: Mr. Morgan is a 49-year-old man with a known history of chronic alcoholic hepatitis as documented by the last GI workup when he was admitted in September of 2019, evaluated by Dr. Rebolledo. At that time, he came in with acute alcoholic hepatitis with extensive liver workup for any underlying viral hepatitis, autoimmune hepatitis, and hemochromatosis. At this time, he presented to the ER with severe dizziness and fatigue over the last one week. He felt 2 to 3 times at home. He denies having any loss of consciousness. He continues to drink vodka heavily up until six days ago. Currently, he denies having any nausea, vomiting , or abdominal pain. He denies having any evidence of GI bleeding such as melena, hematochezia, or rectal bleeding. On admission, he was noted to have a bilirubin of 20.9, AST of 168, ALT of 76, alkaline phosphatase of 287 with a PT of 15.4 seconds. He is alert and lucid with a normal serum ammonia level. There is no signs of alcohol withdrawal or DTs. PAST MEDICAL HISTORY: 1. Congestive heart failure with diastolic dysfunction. 2. Morbid obesity. 3. Obstructive sleep apnea. 4. Pickwickian syndrome. 5. COPD. 6. Hypertension. 7. Chronic alcoholism. 8. History of atrial fibrillation, status post ablation. 9. Appendectomy. 10. History of ankle surgery. ALLERGIES: WARFARIN. MEDICATIONS: At home include; 1. Pantoprazole 40 mg daily. 2. Magnesium 1000 mg daily. 3. Furosemide 40 mg daily. 4. Folic acid 1 mg daily. 5. Vitamin B12 oral daily. 6. Aspirin 81 mg daily. 7. Potassium chloride 10 mEq daily. SOCIAL HISTORY: The patient is . He drinks on the average of six shots of vodka daily, at times more. He does chew tobacco. Formal cigarette smoker. FAMILY HISTORY: Negative for any known GI problem, liver disease, or GI malignancy. REVIEW OF SYSTEMS: GENERAL: The patient has poor appetite, but no weight loss. HEENT: Eye exam showed no new symptoms. CV: Denies any chest pain. CHEST: He is chronically short of breath, especially exertion. GI: As above. : No urinary symptoms. NEURO: No motor sensory deficit, just diffuse weakness. SKIN: No rash. PSYCH: No suicidal ideation or thoughts. Denies depression or anxiety. PHYSICAL EXAMINATION: VITAL SIGNS: Temperature 98.8, blood pressure 136/57, and pulse of 110. GENERAL: He appears to be somewhat anxious, but not tremulous. HEENT: Shows icteric sclerae bilaterally. Oropharynx is clear. NECK: Very supple. CV: Shows normal S1 and S2. Regular rate and rhythm. CHEST: Shows a breath sounds. ABDOMEN: Very protuberant, but soft. No distention. No tympany. Organomegaly is difficult to assess secondary to size. He has active bowel sounds. EXTREMITIES: Shows 2+ edema. LABORATORY DATA: WBCs 3.6, hemoglobin 10.3, and platelet count of 71. INR of 1.2 with PT of 15.6 seconds. Sodium 128, potassium 3.6, CO2 of 35, creatinine 1.17 , BUN of 16, and phosphorus less than 1.0. Bilirubin on admission was 20, now 17.3, AST 154, ALT is 65, alkaline phosphatase 242, and albumin of 2.6. Repeat hepatitis testing showed nonreactive hepatitis B and C antibody. HIV antigen and antibody show presumptive positive. Abdominal ultrasound showed fatty liver with gallstones. Exam is limited because of body size. ASSESSMENT: 1. Acute alcoholic hepatitis. I do not suspect any superimposed process. Salicylate and acetaminophen level were not detected. The patient continues to drink heavily up until a few days ago. His Maddrey's discriminant function is 43 based on his bilirubin of 17 and INR 1.5. This puts him at high risk mortality category. There is clear evidence of hepatic synthetic function with elevated Protime. However, he is alert and lucid without any evidence of encephalopathy. 2. Chronic alcohol abuse. 3. Severe hyperbilirubinemia from alcoholic liver disease. 4. Presumptive positive human immunodeficiency virus. 5. Cholelithiasis, likely asymptomatic. RECOMMENDATION: 1. As he has high Maddrey's discriminant function and absence of any infection, we will start prednisolone 40 mg daily. 2. Restress importance of alcohol abstinence going forward. 3. We will follow and trend his LFT and Protime. Job ID: [id number] [facility]
[2020-06-15] MEDS: Multivitamins, Adult 10 ML, Folic Acid 1 MG, Thiamine HCl 100 MG in Dextrose 5 %-0.45 %... IV SCH (21:10)
[2020-06-16] MEDS: cefTRIAXone\\ROCEPHIN 1 GM in Sodium Chloride 0.9% 100 ML IVPB SCH ×2 (00:12→22:09)
[2020-06-16] MEDS: PHOS-NAK 1 PKT PACK PO SCH (00:15)
[2020-06-16 04:54] LABS: INR-International Normal Ratio 1.3; PTT 34.6 sec (22.9-36.1); Prothrombin Time 16.1 sec (12.0-14.7)
[2020-06-16 05:04] LABS: #Basophils 0.1 thou/uL (0.0-0.2); #Eosinphils 0.1 thou/uL (0.0-0.7); #Lymphocytes 1.5 thou/uL (1.20-3.40); #Monocytes 0.6 thou/uL (0.11-0.59); #Neutrophils 1.9 thou/uL (1.40-6.50); %Basophils 1.3 % (0.0-1.0); %Eosinophils 1.9 % (0.0-10.0); %Lymphocytes 36.9 % (21.0-51.0); %Monocytes 14.3 % (0.0-10.0); %Neutrophils 45.6 % (42.0-75.0); Hemoglobin 10.1 g/dL (14.0-18.0); Mean Corpuscular HGB CONC 32.7 g/dL (32.0-36.0); Mean Corpuscular Hemoglobin 32.8 pg (27.0-31.0); Mean Platelet Volume 8.8 fL (7.4-10.4); Platelet Count 94 thou/uL (130-400); RBC Distribution Width 21.8 % (11.5-14.5); Red Blood Cell (RBC) Count 3.07 mill/uL (4.70-6.10); White Blood Cell (WBC) Count 4.2 thou/uL (4.8-10.8)
[2020-06-16 05:06] LABS: Phosphorus Less than 1.0 mg/dL (2.3-4.7)
[2020-06-16 05:15] LABS: ALT (SGPT) 62 U/L (8-55); AST (SGOT) 140 U/L (5-34); Albumin 2.6 g/dL (3.5-5.0); Alkaline Phosphatase 268 U/L (40-110); Anion Gap 14 mmol/L (10-20); BUN (Urea Nitrogen) 15 mg/dL (8.9-20.6); Bilirubin, Total 18.3 mg/dL (0.2-1.2); Calc. Creatinine Clearance 180 mL/min (70-130); Calcium 8.1 mg/dL (7.8-10.44); Carbon Dioxide 32 mmol/L (22-29); Chloride 85 mmol/L (98-107); Estimated GFR-MDRD 65; Globulin 2.9 g/dL (2.4-3.5); Glucose 108 mg/dL (70-105); Potassium 3.2 mmol/L (3.5-5.1); Protein, Total 5.5 g/dL (6.0-8.3); Sodium 128 mmol/L (136-145)
--- NOTE | 2020-06-16 05:46 | PDOC.FM ---
- Subjective Subjective: Patient reports no acute concerns, no diffculty breathing, and improved abdominal bloating after having BM yesterday. - Objective MAR Reviewed: Yes Vital Signs & Weight: Vital Signs (12 hours) Temp Pulse Resp BP BP Pulse Ox 06/16/20 04:10 98.3 F 107 H 14 123/58 L 97 06/16/20 04:00 123/58 L 06/16/20 00:00 123/56 L 123/56 L 06/15/20 21:08 97.9 F 105 H 24 H 137/90 95 06/15/20 20:00 137/90 Weight Admit Weight 169.445 kg Weight 169.445 kg Most Recent Monitor Data Heart Rate from ECG 114 NIBP 105/58 NIBP BP-Mean 73 Respiration from ECG 17 SpO2 99 I&O: 06/14/20 06/15/20 06/16/20 06:59 06:59 06:59 Intake Total 3680 1760 Output Total 425 550 Balance 3255 1210 Result Diagrams: 06/16/20 04:09 06/16/20 04:09 Phys Exam - Physical Examination Constitutional: NAD HEENT: moist MMs Neck: no nodes, no JVD Respiratory: no rales mild diffuse wheezing Cardiovascular: RRR, no significant murmur, no rub Gastrointestinal: soft, non-tender, no distention Musculoskeletal: pulses present significant lower extremity edema, nonpitting Neurological: non-focal, moves all 4 limbs Psychiatric: normal affect, A&O x 3 Deviation from normal: Persistent jaundice Dx/Plan - Plan Plan: Acute hepatic failure - concern for acute on chronic hepatic failure - Admission AST 180, ALT 79, bilirubin 20.9, history of etoh abuse - AM CBC, CMP, COAGs - Protonix 40 mg QD - Consulted GI -Start prednisolone 40 QD Hypotension - Likely 2/2 orthostatic hypotension given low UOP with IVF treatment - patient does not appear hypervolemic on exam Respiratory acidosis with compensated metabolic alkalosis - likely chronic given COPD and JULIA diagnosis - CPAP at night New onset HIV - positive HIV Ab screen - Obtain viral load, CD4 count, RPR - Consult ID (Olu out of town until 06/17) Dizziness -> lightheadedness - Patient reports sx start when he stands up from lying down/sitting - appears to be orthostatic hypotension CHRIS - Hepatorenal syndrome vs ATN vs HIVAN - baseline SCr <1 - mIVF - monitor SCr Bilateral Conjunctivitis - Likely bacterial given course and purulent discharge - polymyxin B/ TMP eye drops QID for 5 d Alcohol abuse - history of DT, question of seizure caused by DT vs hyponatremia - likely cause of chronic liver disease - ASE protocol - 2 mg Ativan q4h PRN per protocol - PO vitamin replacement Hypophosphatemia - IV repletion - PO repletion - monitor in AM Hypokalemia - replete 20 mEq PO - Home KCl QD - continue to monitor Hyponatremia - chronic, appears to be near baseline - continue to monitor COPD - Q4h PRN duonebs CHF - HFpEF - monitor fluid status - consider restarting lasix with improvement of CHRIS Lymphedema - Chronic condition - Monitor skin for breakdown Hx of A flutter s/p ablation - Monitor HR - episodes of A fib/flutter overnight, asymptomatic, HR downtrending to normal range VTE: hold 2/2 liver dysfunction and hx of bleed Fluids: LR @ 140 mls/hr Diet: Code: Full Dispo: Admit to stroke inpatient
[2020-06-16] MEDS ORDERED: Potassium Phosphate 15 MMOL in Sodium Chloride 0.9% 250 ML 250 ML IVPB SCH (07:15)
[2020-06-16] MEDS: Azithromycin 250 MG TAB PO SCH (08:51)
[2020-06-16 08:52] LABS: Syphilis Antibody Nonreactive (Nonreactive); Syphilis Antibody Index 0.13 S/CO (<1.00 Non-Reactive)
[2020-06-16] MEDS: prednisoLONE 10 MG ODT TAB PO SCH (08:52)
[2020-06-16] MEDS: Polymyxin B Sulf/Trimethoprim 10 ML OPHTH DROPS OP SCH ×4 (08:53→20:12)
[2020-06-16] MEDS: Lactated Ringer's 1,000 ML IV SCH ×3 (08:53→20:06)
[2020-06-16] MEDS ORDERED: prednisoLONE 10 MG ODT TAB PO SCH (09:00)
--- NOTE | 2020-06-16 13:21 | PRG ---
DATE OF SERVICE: 06/16/2020 SUBJECTIVE: Mr. Morgan has no abdominal pain, nausea, or vomiting today. No bowel movement today. OBJECTIVE: VITAL SIGNS: Temperature 98.1, pulse 103, and blood pressure is 104/55. GENERAL: He is in no acute distress, jaundiced. He is alert and oriented x3. LUNGS: Clear to auscultation bilaterally. HEART: Regular rate and rhythm without murmur. ABDOMEN: Obese, nontender, and nondistended. Bowel sounds are present. EXTREMITIES: Have lymphedema and stasis. LABORATORY DATA: White blood cell count 4.2, hemoglobin 10.1, and platelets 94. INR 1.3. Sodium 128, creatinine 1.2, bilirubin 18, AST 140, ALT 62, alkaline phosphatase 268, and albumin 2.9. IMPRESSION: 1. Severe acute alcoholic hepatitis. He has significant mortality risk given his elevated discriminant function. He has been started on methylprednisolone. He has no encephalopathy or asterixis at this time. 2. History of delirium tremens and alcohol withdrawal. He is being covered with benzodiazepine. 3. Morbid obesity, obstructive sleep apnea, chronic obstructive pulmonary disease, and congestive heart failure. 4. HIV antibody positive. RECOMMENDATIONS: 1. We will continue the methylprednisolone for now. 2. Follow trend of his liver tests. 3. Await HIV RNA level to confirm. Additional labs have been ordered including CD4 count. 4. Complete alcohol cessation is recommended. Job ID: [id number]
--- NOTE | 2020-06-16 14:12 | PRG ---
DATE OF SERVICE: 06/16/2020 Mr. Morgan is awake, alert, no distress. He was seen by GI, who recommends that we restart his prednisolone for acute alcoholic hepatitis. We are screening him for other possible causes of cirrhosis to determine whether or not he needs vaccinations against hep A and B. ABG done yesterday seems to show respiratory acidosis and a mild degree of contraction alkalosis as he was volume depleted upon admission. We will continue with judicious fluids and prednisolone. Job ID: [id number]
[2020-06-16 17:14] LABS: Absolute CD4 442 /uL (359-1519); Lymphocytes/Gated Cell Count 1.3 x10E3/uL (0.7-3.1); Total Lymphocyte 35 % (Not Estab.); WBC Total Count 3.6 x10E3/uL (3.4-10.8)
[2020-06-17] MEDS: Lactated Ringer's 1,000 ML IV SCH (03:51)
[2020-06-17 05:16] LABS: ALT (SGPT) 55 U/L (8-55); AST (SGOT) 118 U/L (5-34); Albumin 2.5 g/dL (3.5-5.0); Alkaline Phosphatase 275 U/L (40-110); Anion Gap 14 mmol/L (10-20); BUN (Urea Nitrogen) 11 mg/dL (8.9-20.6); Bilirubin, Total 18.3 mg/dL (0.2-1.2); Calc. Creatinine Clearance 232 mL/min (70-130); Calcium 8.1 mg/dL (7.8-10.44); Carbon Dioxide 32 mmol/L (22-29); Chloride 87 mmol/L (98-107); Estimated GFR-MDRD 87; Globulin 3.1 g/dL (2.4-3.5); Glucose 112 mg/dL (70-105); Potassium 3.5 mmol/L (3.5-5.1); Protein, Total 5.6 g/dL (6.0-8.3); Sodium 129 mmol/L (136-145)
[2020-06-17 05:19] LABS: Phosphorus 1.8 mg/dL (2.3-4.7)
[2020-06-17 06:25] LABS: Band 7 % (5-11); Hemoglobin 10.4 g/dL (14.0-18.0); Lymphocytes 23 % (21-51); MDiff Complete? YES; Mean Corpuscular HGB CONC 32.8 g/dL (32.0-36.0); Mean Corpuscular Hemoglobin 33.2 pg (27.0-31.0); Mean Platelet Volume 8.7 fL (7.4-10.4); Monocytes 5 % (0-10); Neutrophil 65 % (42-75); Platelet Count 113 thou/uL (130-400); Platelet Morphology Comment Appears Decreased; RBC Distribution Width 21.7 % (11.5-14.5); Red Blood Cell (RBC) Count 3.14 mill/uL (4.70-6.10); Target Cells SLIGHT = 2-5 cells (100X) (0-1/hpf); White Blood Cell (WBC) Count 3.9 thou/uL (4.8-10.8)
[2020-06-17 07:24] LABS: INR-International Normal Ratio 1.2; PTT 35.8 sec (22.9-36.1); Prothrombin Time 15.5 sec (12.0-14.7)
[2020-06-17] MEDS: prednisoLONE 10 MG ODT TAB PO SCH (08:19)
[2020-06-17] MEDS: Multivit, Therapeutic 1 TAB PO SCH (08:20)
[2020-06-17] MEDS: Thiamine 100 MG TAB PO SCH (08:20)
[2020-06-17] MEDS: Folic Acid 1 MG TAB PO SCH (08:20)
[2020-06-17] MEDS: Polymyxin B Sulf/Trimethoprim 10 ML OPHTH DROPS OP SCH ×4 (08:20→20:22)
[2020-06-17] MEDS: Azithromycin 250 MG TAB PO SCH (08:20)
[2020-06-17] MEDS ORDERED: Potassium Phosphate 15 MMOL in Sodium Chloride 0.9% 250 ML 250 ML IVPB SCH (09:00)
--- NOTE | 2020-06-17 09:11 | PDOC.FM ---
- Subjective Subjective: Patient with no acute concerns. Reports that he had some SOB earlier this morning that is improving. He slept well with CPAP. - Objective MAR Reviewed: Yes Vital Signs & Weight: Vital Signs (12 hours) Temp Pulse Resp BP Pulse Ox 06/17/20 04:00 98.4 F 100 20 118/68 94 L 06/17/20 00:16 98 06/17/20 00:07 97 06/17/20 00:00 98.7 F 107 H 20 98/54 L 98 Weight Admit Weight 169.445 kg Weight 168.736 kg Most Recent Monitor Data Heart Rate from ECG 114 NIBP 105/58 NIBP BP-Mean 73 Respiration from ECG 17 SpO2 99 I&O: 06/16/20 06/17/20 06/18/20 06:59 06:59 06:59 Intake Total 1760 2677 Output Total 550 1600 Balance 1210 1077 Result Diagrams: 06/17/20 04:22 06/17/20 04:22 Phys Exam - Physical Examination Constitutional: NAD HEENT: moist MMs scleral icterus Neck: no JVD, full ROM Respiratory: no wheezing, no rales, no rhonchi, clear to auscultation bilateral Cardiovascular: RRR, no significant murmur, no rub Gastrointestinal: soft, non-tender, no distention, positive bowel sounds Significant Chronic lymphedema Neurological: non-focal, moves all 4 limbs Psychiatric: normal affect, A&O x 3 Dx/Plan - Plan Plan: Acute hepatic failure - concern for acute on chronic hepatic failure - Admission AST 180, ALT 79, bilirubin 20.9, history of etoh abuse - AM CBC, CMP, COAGs - Protonix 40 mg QD - Consulted GI -Prednisolone 40 QD Hypotension - Likely 2/2 orthostatic hypotension given low UOP with IVF treatment - patient does not appear hypervolemic on exam Respiratory acidosis with compensated metabolic alkalosis - likely chronic given COPD and JULIA diagnosis - CPAP at night New onset HIV - positive HIV Ab screen, CD4 442 - Obtain viral load, RPR - Consult ID (Olu out of town until 06/17) Dizziness -> lightheadedness - Patient reports sx start when he stands up from lying down/sitting - appears to be orthostatic hypotension CHRIS - Hepatorenal syndrome vs ATN vs HIVAN - baseline SCr <1 - mIVF - monitor SCr Bilateral Conjunctivitis - Likely bacterial given course and purulent discharge - polymyxin B/ TMP eye drops QID for 5 d Alcohol abuse - history of DT, question of seizure caused by DT vs hyponatremia - likely cause of chronic liver disease - ASE protocol - 2 mg Ativan q4h PRN per protocol - PO vitamin replacement Hypophosphatemia - IV repletion - PO repletion - monitor in AM Hypokalemia - Home KCl QD - continue to monitor Hyponatremia - chronic, appears to be near baseline - continue to monitor COPD - Q4h PRN duonebs CHF - HFpEF - monitor fluid status - consider restarting lasix with improvement of CHRIS Lymphedema - Chronic condition - Monitor skin for breakdown Hx of A flutter s/p ablation - Monitor HR VTE: hold 2/2 liver dysfunction and hx of bleed Fluids: SL Diet: HH Code: Full Dispo: Admit to stroke inpatient
[2020-06-17] MEDS: Acetaminophen 500 MG TAB PO PRN (10:28)
--- NOTE | 2020-06-17 17:10 | PRG ---
DATE OF SERVICE: 06/17/2020 Mr. Morgan is resting in bed comfortably, in no acute distress. We again had a discussion regarding his sleep apnea and the need to treat this every night. We are awaiting further input from Infectious Disease given his new diagnosis of HIV positivity. Job ID: [id number]
[2020-06-17 21:34] LABS: HIV-1 Quantitative, RNA PCR <20 copies/mL (.)
--- NOTE | 2020-06-17 22:12 | PRG ---
DATE OF SERVICE: 06/17/2020 SUBJECTIVE: Mr. Morgan has no acute complaints. No abdominal pain. He had a large bowel movement this evening. PHYSICAL EXAMINATION: VITAL SIGNS: Temperature 98.3, pulse 101, and blood pressure 126/59. GENERAL: He is in no acute distress. He is awake and alert. No signs of withdrawal currently. LUNGS: Clear to auscultation bilaterally. HEART: Regular rate and rhythm without murmur. ABDOMEN: Soft, nontender, and nondistended. Bowel sounds are present. EXTREMITIES: No lower extremity edema. LABORATORY DATA: White blood cell count 3.9, hemoglobin 10.4, platelets 113. INR 1.2. Bilirubin 18.3, AST 118, ALT 55, and alkaline phosphatase 275. IMPRESSION: 1. Acute alcoholic hepatitis. He has been started on prednisolone for now. We will continue to monitor the trend of his liver tests to see how he responds. His bilirubin remained stable, but his transaminases dropped very slightly. 2. Human immunodeficiency virus antibody positive. Await RNA to determine if he has true infection. RECOMMENDATIONS: 1. Continue prednisolone. 2. Continue to follow trend of liver tests. Job ID: [id number]
[2020-06-17] MEDS: cefTRIAXone\\ROCEPHIN 1 GM in Sodium Chloride 0.9% 100 ML IVPB SCH (22:36)
[2020-06-18 04:29] LABS: #Monocytes 0.6 thou/uL (0.11-0.59); #Neutrophils 2.6 thou/uL (1.40-6.50); %Basophils 0.4 % (0.0-1.0); %Eosinophils 0.4 % (0.0-10.0); %Lymphocytes 23.7 % (21.0-51.0); %Monocytes 14.3 % (0.0-10.0); %Neutrophils 61.2 % (42.0-75.0); Hemoglobin 10.3 g/dL (14.0-18.0); Mean Corpuscular HGB CONC 32.5 g/dL (32.0-36.0); Mean Corpuscular Hemoglobin 32.8 pg (27.0-31.0); Mean Platelet Volume 8.6 fL (7.4-10.4); Platelet Count 164 thou/uL (130-400); RBC Distribution Width 21.5 % (11.5-14.5); Red Blood Cell (RBC) Count 3.13 mill/uL (4.70-6.10); White Blood Cell (WBC) Count 4.3 thou/uL (4.8-10.8)
[2020-06-18 04:35] LABS: INR-International Normal Ratio 1.2; Prothrombin Time 15.3 sec (12.0-14.7)
[2020-06-18 05:11] LABS: ALT (SGPT) 62 U/L (8-55); AST (SGOT) 131 U/L (5-34); Albumin 2.6 g/dL (3.5-5.0); Alkaline Phosphatase 339 U/L (40-110); Anion Gap 14 mmol/L (10-20); BUN (Urea Nitrogen) 12 mg/dL (8.9-20.6); Bilirubin, Total 17.6 mg/dL (0.2-1.2); Calc. Creatinine Clearance 284 mL/min (70-130); Calcium 8.4 mg/dL (7.8-10.44); Carbon Dioxide 30 mmol/L (22-29); Chloride 88 mmol/L (98-107); Estimated GFR-MDRD Greater than 90; Globulin 3.3 g/dL (2.4-3.5); Glucose 108 mg/dL (70-105); Potassium 3.9 mmol/L (3.5-5.1); Protein, Total 5.9 g/dL (6.0-8.3); Sodium 128 mmol/L (136-145)
--- NOTE | 2020-06-18 05:31 | PDOC.FM ---
- Subjective Subjective: Mr. Morgan is doing well this morning. He expressed frustrations that nursing did not bring him his BIPAP until 4am so he did not rest very well. - Objective Vital Signs & Weight: Vital Signs (12 hours) Temp Pulse Resp BP Pulse Ox 06/18/20 04:43 97 06/18/20 00:00 118/58 L 06/17/20 20:00 97 06/17/20 19:11 98.3 F 101 H 20 126/59 L 94 L Weight Admit Weight 169.445 kg Weight 168.328 kg Most Recent Monitor Data Heart Rate from ECG 114 NIBP 105/58 NIBP BP-Mean 73 Respiration from ECG 17 SpO2 99 I&O: 06/16/20 06/17/20 06/18/20 06:59 06:59 06:59 Intake Total 1760 2677 1860 Output Total 550 1600 450 Balance 1210 1077 1410 Result Diagrams: 06/18/20 04:16 06/18/20 04:16 EKG Reviewed by me: Yes (tele: SR, episodes of tachycardia 90-100s) Phys Exam - Physical Examination Constitutional: NAD HEENT: moist MMs, sclera anicteric Neck: no JVD, full ROM Respiratory: clear to auscultation bilateral Cardiovascular: RRR, no significant murmur Gastrointestinal: soft, non-tender chronic lymphedema bilaterally Neurological: moves all 4 limbs Psychiatric: normal affect, A&O x 3 Dx/Plan - Plan Plan: Acute hepatic failure - Likely acute alcoholic hepatitis - Protonix 40 mg QD - Consulted GI -Prednisolone 40 QD - trend LFTs - TBili: 20.9--> 17.6, AST 168 --> 131, ALT 76 --> 62 Hypotension - Likely 2/2 orthostatic hypotension given low UOP with IVF treatment - patient does not appear hypervolemic on exam Respiratory acidosis with compensated metabolic alkalosis - likely chronic given COPD and JULIA diagnosis - CPAP at night New onset HIV??? - positive HIV Ab screen, CD4 442 - HIV RNA negative - Obtain viral load - RPR nonreactive - Consult ID ([facility] out of town until 06/17) Dizziness -> lightheadedness - Patient reports sx start when he stands up from lying down/sitting - appears to be orthostatic hypotension CHRIS - Hepatorenal syndrome vs ATN vs HIVAN - SCr improved to 0.76 from 1.65 with mIVF - Continue to monitor SCr Bilateral Conjunctivitis - Likely bacterial given course and purulent discharge - polymyxin B/ TMP eye drops QID for 5 d Alcohol abuse - history of DT, question of seizure caused by DT vs hyponatremia - likely cause of chronic liver disease - ASE protocol - 2 mg Ativan q4h PRN per protocol - PO vitamin replacement Hypophosphatemia - Replaced to 1.8 via PO and IV - PO today - Recheck in AM Hypokalemia - Home KCl QD - continue to monitor Hyponatremia - chronic, appears to be near baseline - continue to monitor COPD - Q4h PRN duonebs CHF - HFpEF - monitor fluid status - consider restarting lasix with improvement of CHRIS Lymphedema - Chronic condition - Monitor skin for breakdown Hx of A flutter s/p ablation - sinus rhythm with episodes of tachycardia 90-100s on telemetry - Continue to monitor VTE: hold 2/2 liver dysfunction and hx of bleed Fluids: SL Diet: Code: Full Dispo: Admit to stroke inpatient Addendum - Attending - Attending Attestation Date/Time: 06/18/20 6854 I personally evaluated the patient and discussed the management with Dr. Jordan. I agree with the History, Examination, Assessment and Plan documented above with any addition or exceptions noted below. Pt's hb is stable. Pt will continue steroids per GI. Pt asymptomatic from an alcohol withdrawal standpoint. HIV-1 RNA was negative, will discuss further with ID. Continue to trend LFT's, Hb.
[2020-06-18] MEDS: PHOS-NAK 1 PKT PACK PO SCH ×2 (09:18→20:24)
[2020-06-18] MEDS: Multivit, Therapeutic 1 TAB PO SCH (09:18)
[2020-06-18] MEDS: Polymyxin B Sulf/Trimethoprim 10 ML OPHTH DROPS OP SCH ×4 (09:18→20:24)
[2020-06-18] MEDS: Folic Acid 1 MG TAB PO SCH (09:18)
[2020-06-18] MEDS: Thiamine 100 MG TAB PO SCH (09:18)
[2020-06-18] MEDS: Azithromycin 250 MG TAB PO SCH (09:19)
[2020-06-18] MEDS: prednisoLONE 10 MG ODT TAB PO SCH (09:19)
[2020-06-18] MEDS ORDERED: PHOS-NAK 1 PKT PACK PO SCH (12:30)
--- NOTE | 2020-06-18 14:01 | PRG ---
DATE OF SERVICE: 06/18/2020 SUBJECTIVE: Mr. Morgan has no abdominal pain. He had one bowel movement yesterday and no bowel movements today. OBJECTIVE: VITAL SIGNS: Temperature 99.4, pulse 103, blood pressure 126/60s. GENERAL: In no acute distress. Awake and alert. LUNGS: Clear to auscultation bilaterally. HEART: Regular rate and rhythm without murmur. ABDOMEN: Soft, nontender, and nondistended. Bowel sounds are present. EXTREMITIES: No lower extremity edema. IMPRESSION: 1. Acute alcoholic hepatitis. His bilirubin still remains stable at 17.6. Transaminases and alkaline phosphatase are also stable. However, the alkaline phosphatase has bumped up a bit. Albumin 2.6. He does have known small stones in the gallbladder, but the bile duct was not large enough to even be identified by ultrasound. 2. Morbid obesity. 3. Human immunodeficiency virus antibody positive. We are awaiting an RNA level to determine if he does have chronic human immunodeficiency virus infection. 4. Alcohol withdrawal. Appears to be resolved without delirium tremens at this moment. 5. Hyponatremia. RECOMMENDATIONS: 1. We will continue prednisolone for now. 2. We will continue to monitor the trend of his liver tests. Job ID: [id number]
[2020-06-18 21:37] LABS: HIV 1 Antibody Multi-Spot Negative (Negative); HIV 2 Antibody Multi-Spot Negative (Negative); HIV Multi-spot Interp Negative (.)
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
[2020-06-18] MEDS: cefTRIAXone\\ROCEPHIN 1 GM in Sodium Chloride 0.9% 100 ML IVPB SCH (23:38)
[2020-06-19 04:35] LABS: PTT 33.3 sec (22.9-36.1)
[2020-06-19 04:47] LABS: INR-International Normal Ratio 1.3; Prothrombin Time 15.8 sec (12.0-14.7)
[2020-06-19 04:50] LABS: ALT (SGPT) 73 U/L (8-55); AST (SGOT) 148 U/L (5-34); Albumin 2.8 g/dL (3.5-5.0); Alkaline Phosphatase 389 U/L (40-110); Anion Gap 12 mmol/L (10-20); BUN (Urea Nitrogen) 13 mg/dL (8.9-20.6); Bilirubin, Total 17.5 mg/dL (0.2-1.2); Calc. Creatinine Clearance 272 mL/min (70-130); Calcium 8.6 mg/dL (7.8-10.44); Carbon Dioxide 32 mmol/L (22-29); Chloride 89 mmol/L (98-107); Estimated GFR-MDRD Greater than 90; Globulin 3.3 g/dL (2.4-3.5); Glucose 99 mg/dL (70-105); Potassium 3.5 mmol/L (3.5-5.1); Protein, Total 6.1 g/dL (6.0-8.3); Sodium 129 mmol/L (136-145)
[2020-06-19 05:06] LABS: Phosphorus 1.9 mg/dL (2.3-4.7)
--- NOTE | 2020-06-19 05:32 | PDOC.FM ---
- Subjective Subjective: Mr. Morgan is doing well this morning. He used his BIPAP all night and got better sleep than the night before. He was on 2L nasal cannula, explaining he always has trouble breathing right after he comes off the BIPAP in the morning. - Objective Vital Signs & Weight: Vital Signs (12 hours) Temp Pulse Resp BP Pulse Ox 06/19/20 04:00 97.6 F 95 20 125/59 L 92 L 06/18/20 23:43 98.4 F 98 18 145/69 H 98 06/18/20 23:12 98 06/18/20 20:00 94 L 06/18/20 19:12 98.4 F 101 H 16 137/69 93 L Weight Admit Weight 169.445 kg Weight 168.328 kg Most Recent Monitor Data Heart Rate from ECG 114 NIBP 105/58 NIBP BP-Mean 73 Respiration from ECG 17 SpO2 99 I&O: 06/17/20 06/18/20 06/19/20 06:59 06:59 06:59 Intake Total 2677 2660 2800 Output Total 1600 1150 1800 Balance 1077 1510 1000 Result Diagrams: 06/19/20 04:05 06/19/20 04:05 EKG Reviewed by me: Yes (tele: SR 90-100s) Phys Exam - Physical Examination Constitutional: NAD HEENT: moist MMs Neck: no JVD, full ROM Respiratory: no wheezing, clear to auscultation bilateral Cardiovascular: RRR, no significant murmur Gastrointestinal: soft, non-tender, positive bowel sounds chronic lymphedema LE bilaterally Neurological: moves all 4 limbs Psychiatric: normal affect, A&O x 3 Deviation from normal: jaundice skin Dx/Plan - Plan Plan: Acute hepatic failure - Likely acute alcoholic hepatitis - Protonix 40 mg QD - Consulted GI -Prednisolone 40 QD - trend LFTs - TBili: 17.6>17.5, AST 131>148, ALT 62>73 - Follow GI recs New onset HIV??? - positive HIV Ab screen, CD4 442 - reflex confirmation of HIV was negative - RPR nonreactive - [facility]lu recs Hypophosphatemia - 1.8>1.9 - PO BID while admitted - Recheck in AM Hypotension - Likely 2/2 orthostatic hypotension given low UOP with IVF treatment - patient does not appear hypervolemic on exam Respiratory acidosis with compensated metabolic alkalosis - likely chronic given COPD and JULIA diagnosis - CPAP at night - requiring 2L nasal cannula in the mornings for comfort after coming off CPAP Dizziness -> lightheadedness - Patient reports sx start when he stands up from lying down/sitting - appears to be orthostatic hypotension CHRIS - Hepatorenal syndrome vs ATN vs HIVAN - SCr improved to 0.76 from 1.65 with mIVF - Continue to monitor SCr Bilateral Conjunctivitis - Likely bacterial given course and purulent discharge - polymyxin B/ TMP eye drops QID for 5 d Alcohol abuse - history of DT, question of seizure caused by DT vs hyponatremia - likely cause of chronic liver disease - ASE protocol - 2 mg Ativan q4h PRN per protocol - PO vitamin replacement Hypokalemia - Home KCl QD - continue to monitor Hyponatremia - chronic, appears to be near baseline - continue to monitor COPD - Q4h PRN duonebs CHF - HFpEF - monitor fluid status - consider restarting lasix with improvement of CHRIS Lymphedema - Chronic condition - Monitor skin for breakdown Hx of A flutter s/p ablation - sinus rhythm with episodes of tachycardia 90-100s on telemetry - Continue to monitor VTE: hold 2/2 liver dysfunction and hx of bleed Fluids: SL Diet: HH Code: Full Dispo: Admit to stroke inpatient Addendum - Attending - Attending Attestation Date/Time: 06/19/20 [id number] I personally evaluated the patient and discussed the management with Dr. Jordan. I agree with the History, Examination, Assessment and Plan documented above with any addition or exceptions noted below. The patient rested well overnight. Liver enzymes just slightly increased. Will continue steroids. Appreciate recs from Dr. Raines. Awaiting some additional labs but currently it appears the positive HIV test may be a false positive. Appreciate GI recs. H/h stable.
[2020-06-19 05:44] LABS: Band 8 % (5-11); Hemoglobin 10.7 g/dL (14.0-18.0); Lymphocytes 33 % (21-51); MDiff Complete? YES; Mean Corpuscular HGB CONC 32.4 g/dL (32.0-36.0); Mean Corpuscular Hemoglobin 32.6 pg (27.0-31.0); Mean Platelet Volume 8.3 fL (7.4-10.4); Monocytes 7 % (0-10); Neutrophil 52 % (42-75); Platelet Count 204 thou/uL (130-400); Red Blood Cell (RBC) Count 3.28 mill/uL (4.70-6.10)
[2020-06-19] MEDS: prednisoLONE 10 MG ODT TAB PO SCH (10:04)
[2020-06-19] MEDS: Folic Acid 1 MG TAB PO SCH (10:06)
[2020-06-19] MEDS: PHOS-NAK 1 PKT PACK PO SCH ×2 (10:06→21:38)
[2020-06-19] MEDS: Thiamine 100 MG TAB PO SCH (10:07)
[2020-06-19] MEDS: Multivit, Therapeutic 1 TAB PO SCH (10:07)
[2020-06-19] MEDS: Polymyxin B Sulf/Trimethoprim 10 ML OPHTH DROPS OP SCH ×4 (10:07→21:37)
--- NOTE | 2020-06-19 13:04 | PRG ---
DATE OF SERVICE: 06/19/2020 SUBJECTIVE: Mr. Morgan felt better last night and feels better today. Has no abdominal pain. No diarrhea or constipation. He had 2 bowel movements yesterday. OBJECTIVE: VITAL SIGNS: Temperature 98.7, pulse 86, and blood pressure 120/64. GENERAL: He is in no acute distress. Alert and oriented x3, in jaundice, morbidly obese. LUNGS: Clear to auscultation bilaterally. HEART: Regular rate and rhythm without murmur. ABDOMEN: Soft, nontender, and nondistended. Bowel sounds are present. EXTREMITIES: Lower extremities have lymphedema. LABORATORY DATA: White blood cell count 5.0, hemoglobin 10.7, and platelets 204. INR 1.3. Creatinine 0.79, bilirubin 17.5, AST 148, ALT 73, and alkaline phosphatase 389. IMPRESSION: 1. Severe alcoholic hepatitis. His liver tests have remained fairly stable. His INR is stable. If we eventually do not see any significant improvement in the liver tests, then we may consider discontinuation of steroids. For now, we will continue the prednisolone. 2. Sleep apnea and obesity hypoventilation syndrome. 3. Abnormal HIV serology, which could be false positive. He is being evaluated by Infectious Disease for that. 4. Alcohol abuse with history of DTs. RECOMMENDATIONS: 1. Continue prednisolone. 2. Continue to follow trend of his liver tests. Job ID: [id number]
[2020-06-19] MEDS: Acetaminophen 500 MG TAB PO PRN (17:07)
[2020-06-19] MEDS: cefTRIAXone\\ROCEPHIN 1 GM in Sodium Chloride 0.9% 100 ML IVPB SCH ×2 (21:38→21:39)
[2020-06-20 05:11] LABS: INR-International Normal Ratio 1.2; PTT 31.8 sec (22.9-36.1); Prothrombin Time 15.4 sec (12.0-14.7)
[2020-06-20 05:25] LABS: Phosphorus 2.1 mg/dL (2.3-4.7)
[2020-06-20 05:27] LABS: ALT (SGPT) 84 U/L (8-55); AST (SGOT) 151 U/L (5-34); Albumin 2.7 g/dL (3.5-5.0); Alkaline Phosphatase 405 U/L (40-110); Anion Gap 11 mmol/L (10-20); BUN (Urea Nitrogen) 12 mg/dL (8.9-20.6); Bilirubin, Total 17.9 mg/dL (0.2-1.2); Calc. Creatinine Clearance 279 mL/min (70-130); Calcium 8.6 mg/dL (7.8-10.44); Carbon Dioxide 33 mmol/L (22-29); Chloride 90 mmol/L (98-107); Estimated GFR-MDRD Greater than 90; Globulin 3.4 g/dL (2.4-3.5); Glucose 113 mg/dL (70-105); Potassium 3.3 mmol/L (3.5-5.1); Protein, Total 6.1 g/dL (6.0-8.3); Sodium 131 mmol/L (136-145)
[2020-06-20 05:47] LABS: Hemoglobin 11.2 g/dL (14.0-18.0); Mean Corpuscular Hemoglobin 33.3 pg (27.0-31.0); Mean Platelet Volume 8.4 fL (7.4-10.4); Platelet Count 244 thou/uL (130-400); RBC Distribution Width 21.3 % (11.5-14.5); Red Blood Cell (RBC) Count 3.35 mill/uL (4.70-6.10); White Blood Cell (WBC) Count 5.4 thou/uL (4.8-10.8)
[2020-06-20 05:54] LABS: Band 3 % (5-11); Lymphocytes 21 % (21-51); MDiff Complete? YES; Macrocytosis SLIGHT = 6-15 cells (100X) (0-5/hpf); Monocytes 12 % (0-10); Neutrophil 64 % (42-75); Target Cells SLIGHT = 2-5 cells (100X) (0-1/hpf)
--- NOTE | 2020-06-20 06:08 | PDOC.FM ---
- Subjective Subjective: Patient reports he is doing well, didn't sleep last night 2/2 not receiving CPAP. Thinks his lower extremity edema is getting worse. - Objective Vital Signs & Weight: Vital Signs (12 hours) Temp Pulse Resp BP BP Pulse Ox 06/20/20 04:45 99 06/20/20 04:00 98.4 F 105 H 18 145/76 H 94 L 06/19/20 23:45 98 06/19/20 20:00 98.8 F 97 18 132/61 132/61 94 L Weight Admit Weight 169.445 kg Weight 168.328 kg Most Recent Monitor Data Heart Rate from ECG 114 NIBP 105/58 NIBP BP-Mean 73 Respiration from ECG 17 SpO2 99 I&O: 06/18/20 06/19/20 06/20/20 06:59 06:59 06:59 Intake Total 2660 2800 960 Output Total 1150 1800 3880 Balance 1510 1000 -2920 Result Diagrams: 06/20/20 04:46 06/20/20 04:46 Phys Exam - Physical Examination Constitutional: NAD HEENT: PERRLA scleral icterus Respiratory: no wheezing, no rales, no rhonchi, clear to auscultation bilateral Cardiovascular: RRR, no significant murmur, no rub Gastrointestinal: soft, non-tender, no distention, positive bowel sounds significant chronic edema, appears to be worse on exam. Neurological: non-focal, moves all 4 limbs Lymphatic: no nodes Psychiatric: A&O x 3 Dx/Plan - Plan Plan: Acute hepatic failure - Likely acute alcoholic hepatitis - Protonix 40 mg QD - Consulted GI -Prednisolone 40 QD - trend LFTs - TBili: 17.6>17.5, AST 131>148, ALT 62>73 - Follow GI recs Hypophosphatemia - 2.1 this AM - PO BID while admitted, consider IV supplementation - Recheck in AM Respiratory acidosis with compensated metabolic alkalosis - likely chronic given COPD and JULIA diagnosis - CPAP at night Dizziness -> lightheadedness/presyncope - Patient reports sx start when he stands up from lying down/sitting - appears to be orthostatic hypotension Bilateral Conjunctivitis - Likely bacterial given course and purulent discharge - polymyxin B/ TMP eye drops QID for 5 d Alcohol abuse - history of DT, question of seizure caused by DT vs hyponatremia - likely cause of chronic liver disease - ASE protocol - 2 mg Ativan q4h PRN per protocol - PO vitamin replacement Hypokalemia - Home KCl QD, replete magnesium - continue to monitor Hyponatremia - chronic, appears to be near baseline - continue to monitor COPD - Q4h PRN duonebs CHF - HFpEF - monitor fluid status - consider restarting lasix with improvement of CHRIS Lymphedema - Chronic condition - Monitor skin for breakdown - Start home Lasix Hx of A flutter s/p ablation - sinus rhythm with episodes of tachycardia 90-100s on telemetry - Continue to monitor Hypotension, improving - Likely 2/2 orthostatic hypotension given low UOP with IVF treatment - patient does not appear hypervolemic on exam CHRIS, improved - Hepatorenal syndrome vs ATN - SCr improved to 0.76 from 1.65 with mIVF - Continue to monitor SCr False positive HIV test - positive HIV Ab screen, CD4 442 - reflex confirmation of HIV was negative - RPR nonreactive - Olu recs VTE: hold 2/2 liver dysfunction and hx of bleed Fluids: SL Diet: HH Code: Full Dispo: Admit to stroke inpatient Addendum - Attending - Attending Attestation Date/Time: 06/20/20 1140 I personally evaluated the patient and discussed the management with Dr. Plunkett. I agree with the History, Examination, Assessment and Plan documented above with any addition or exceptions noted below. Patient here with acute alcoholic hepatitis 2/2 noncompliance with alcohol abstinence. Electrolytes improved, hepatic function stable. GI on board, continues on steroids for his severity of alcoholic hepatitis. The patient should either begin abstaining from alcohol or choose hospice services as his care home prognosis is very poor.
[2020-06-20] MEDS ORDERED: Potassium Chloride 20 MEQ TAB PO SCH (06:15)
[2020-06-20] MEDS: Furosemide 40 MG TAB PO SCH (08:51)
[2020-06-20] MEDS: Folic Acid 1 MG TAB PO SCH (08:51)
[2020-06-20] MEDS: Potassium Chloride 10 MEQ TAB PO SCH (08:52)
[2020-06-20] MEDS: PHOS-NAK 1 PKT PACK PO SCH ×2 (08:52→20:58)
[2020-06-20] MEDS: Multivit, Therapeutic 1 TAB PO SCH (08:52)
[2020-06-20] MEDS: Thiamine 100 MG TAB PO SCH (08:52)
[2020-06-20] MEDS: Magnesium Oxide 250 MG TAB PO SCH (08:52)
[2020-06-20] MEDS: prednisoLONE 10 MG ODT TAB PO SCH (08:59)
--- NOTE | 2020-06-20 12:20 | PQF ---
Q26 2018 [facility] Updated: CLINICAL DOCUMENTATION CLARIFICATION FORM: Dear Dr. Plunkett Date: 06/20/20 Please exercise your independent, professional judgment in responding to the clarification form. Clinical indicators are provided on the bottom of this form for your review. Please check appropriate box(es): HEART FAILURE: A. ACUITY [ ] Acute [ ] Acute on Chronic [X ] Chronic B. TYPE: [ ] Systolic / HFrEF [ X] Diastolic / HFpEF [ ] Combined Systolic / Diastolic [ ] Hypertensive Heart and Kidney disease [ ] Hypertensive Heart Disease [ ] Hypertensive Kidney Disease [ ] Other diagnosis [ ] Unable to determine In addition, please specify: Present on Admission (POA): [ X] Yes [ ] No [ ] Unable to determine For continuity of documentation, please document condition throughout progress notes and discharge summary. Thank You. PROGRESS NOTE 06/15 (SILVINA): "CHF, MONITOR FLUID STATUS" H&P: "INCREASED SOB WITH INCREASED WHITE SPUTUM PRODUCTION AND MILD WHEEZING." "COURSE BREATH SOUND DIFFUSELY, POOR AIR MOVEMENT" "SIGNIFICANT BL EDEMA" PN 06/20 (SILVINA): "LOWER EXTREMITY EDEMA GETTING WORSE" RISKS H/O CHF (H&P 06/14) H/O AFIB (H&P 06/14) CHRIS (PN - SILVINA 06/16) ETOH ABUSE (PN -KEIN) 06/18 TREATMENT: CHEST XRAY 06/14 SUPPLEMENTAL O2 (H&P 06/14) LASIX RESUMED (06/10- SEE MAR) I&O'S 06/16-PRESENT CDS Signature: Maria De Jesus Whalen RN Phone #: [phone] Date: 06/20/20 This is a permanent part of the Medical Record [facility]
[2020-06-20 13:13] VITALS: BMI 59.8
--- NOTE | 2020-06-20 16:52 | PRG ---
DATE OF SERVICE: 06/20/2020 SUBJECTIVE: Mr. Morgan has no acute complaints. He is having one or two bowel movements per day. No abdominal pain. OBJECTIVE: VITAL SIGNS: Temperature 98.3, pulse 104, and blood pressure 131/63. GENERAL: He was jaundiced. No acute distress. He is bedbound, largely related to chronic severe lymphedema of the lower extremities. LUNGS: Clear to auscultation bilaterally. HEART: Regular rate and rhythm without murmur. ABDOMEN: Soft, nontender, and nondistended. Bowel sounds are present. LABORATORY DATA: White blood cell count 5.4, hemoglobin 11.2, and platelets 244. Creatinine 1.2, bilirubin 17.9, AST 151, ALT 84, and alkaline phosphatase 405. IMPRESSION: Severe alcoholic hepatitis. RECOMMENDATIONS: 1. Continue prednisolone. 2. If his bilirubin is not trending down significantly by Saturday, then the prednisolone can be discontinued, and I would expect that, by then, he should be ready to discharge. If his bilirubin is trending down, then he can complete a 28-day course of the prednisolone. 3. Dr. Ji will be rounding for the GI Service tomorrow. Job ID: [id number]
--- NOTE | 2020-06-20 17:04 | EKG ---
Test Reason : STAT Blood Pressure : / mmHG Vent. Rate : 125 BPM Atrial Rate : 125 BPM P-R Int : 132 ms QRS Dur : 082 ms QT Int : 340 ms P-R-T Axes : 043 060 027 degrees QTc Int : 490 ms Sinus tachycardia Otherwise normal ECG No previous ECGs available Confirmed by DES PERALTA (2) on 06/20/2020 5:04:03 PM Referred By: NOEL Confirmed By:DES PERALTA
[2020-06-21 04:48] LABS: #Lymphocytes 1.1 thou/uL (1.20-3.40); #Monocytes 0.8 thou/uL (0.11-0.59); #Neutrophils 3.3 thou/uL (1.40-6.50); %Basophils 0.8 % (0.0-1.0); %Eosinophils 0.9 % (0.0-10.0); %Lymphocytes 21.5 % (21.0-51.0); %Monocytes 14.6 % (0.0-10.0); %Neutrophils 62.1 % (42.0-75.0); Hemoglobin 10.6 g/dL (14.0-18.0); Mean Corpuscular Hemoglobin 32.3 pg (27.0-31.0); Platelet Count 302 thou/uL (130-400); RBC Distribution Width 21.3 % (11.5-14.5); Red Blood Cell (RBC) Count 3.29 mill/uL (4.70-6.10); White Blood Cell (WBC) Count 5.3 thou/uL (4.8-10.8)
[2020-06-21 05:34] LABS: INR-International Normal Ratio 1.1; Prothrombin Time 14.6 sec (12.0-14.7)
[2020-06-21 05:35] LABS: ALT (SGPT) 95 U/L (8-55); AST (SGOT) 150 U/L (5-34); Albumin 2.7 g/dL (3.5-5.0); Alkaline Phosphatase 414 U/L (40-110); Anion Gap 18 mmol/L (10-20); BUN (Urea Nitrogen) 13 mg/dL (8.9-20.6); Bilirubin, Total 15.7 mg/dL (0.2-1.2); Calc. Creatinine Clearance 291 mL/min (70-130); Calcium 8.4 mg/dL (7.8-10.44); Carbon Dioxide 25 mmol/L (22-29); Chloride 94 mmol/L (98-107); Estimated GFR-MDRD Greater than 90; Globulin 3.2 g/dL (2.4-3.5); Glucose 87 mg/dL (70-105); Potassium 3.8 mmol/L (3.5-5.1); Protein, Total 5.9 g/dL (6.0-8.3); Sodium 133 mmol/L (136-145)
--- NOTE | 2020-06-21 06:10 | PDOC.FM ---
- Subjective Subjective: Patient has no acute concerns, slept well last night with CPAP/BiPAP. Breathing well this morning. - Objective MAR Reviewed: Yes Vital Signs & Weight: Vital Signs (12 hours) Temp Pulse Resp BP Pulse Ox 06/21/20 03:56 98 06/21/20 03:51 97.7 F 90 22 H 155/60 H 93 L 06/21/20 00:00 98.1 F 91 19 139/85 96 06/20/20 23:30 98 06/20/20 20:45 94 L 06/20/20 20:00 98.7 F 101 H 20 139/72 94 L Weight Admit Weight 169.445 kg Weight 168.328 kg Most Recent Monitor Data Heart Rate from ECG 114 NIBP 105/58 NIBP BP-Mean 73 Respiration from ECG 17 SpO2 99 I&O: 06/19/20 06/20/20 06/21/20 06:59 06:59 06:59 Intake Total 2800 960 800 Output Total 1800 3880 1875 Balance 1000 -8770 -1078 Result Diagrams: 06/21/20 04:14 06/21/20 04:14 Phys Exam - Physical Examination Constitutional: NAD HEENT: moist MMs Respiratory: no wheezing, no rales, no rhonchi, clear to auscultation bilateral Cardiovascular: RRR, no significant murmur, no rub Gastrointestinal: soft, non-tender, no distention, positive bowel sounds Chronic lymphedema Neurological: non-focal, moves all 4 limbs Dx/Plan - Plan Plan: Acute hepatic failure - Likely acute alcoholic hepatitis - Protonix 40 mg QD - Consulted GI -Prednisolone 40 QD - trend LFTs, watch bilirubin Hypophosphatemia - PO BID while admitted, consider IV supplementation - Recheck in AM Respiratory acidosis with compensated metabolic alkalosis - likely chronic given COPD and JULIA diagnosis - CPAP at night Dizziness -> lightheadedness/presyncope - Patient reports sx start when he stands up from lying down/sitting - appears to be orthostatic hypotension Bilateral Conjunctivitis - Likely bacterial given course and purulent discharge - polymyxin B/ TMP eye drops QID for 5 d Alcohol abuse - history of DT, question of seizure caused by DT vs hyponatremia - likely cause of chronic liver disease - ASE protocol - 2 mg Ativan q4h PRN per protocol - PO vitamin replacement Hypokalemia - Home KCl QD, replete magnesium - continue to monitor Hyponatremia - chronic, appears to be near baseline - continue to monitor COPD - Q4h PRN duonebs CHF - HFpEF - monitor fluid status - consider restarting lasix with improvement of CHRIS Lymphedema - Chronic condition - Monitor skin for breakdown - Home Lasix Hx of A flutter s/p ablation - sinus rhythm with episodes of tachycardia 90-100s on telemetry - Continue to monitor Hypotension, improving - Likely 2/2 orthostatic hypotension given low UOP with IVF treatment - patient does not appear hypervolemic on exam CHRIS, improved - Hepatorenal syndrome vs ATN - SCr improved to 0.76 from 1.65 with mIVF - Continue to monitor SCr False positive HIV test - positive HIV Ab screen, CD4 442 - reflex confirmation of HIV was negative - RPR nonreactive - Olu recs VTE: hold 2/2 liver dysfunction and hx of bleed Fluids: SL Diet: HH Code: Full Dispo: LOS<48 hrs Addendum - Attending - Attending Attestation Date/Time: 06/21/20 1116 I personally evaluated the patient and discussed the management with Dr. Plunkett. I agree with the History, Examination, Assessment and Plan documented above with any addition or exceptions noted below. Patient overall stable. TBili has downtrended, suspect will continue steroids. Monitor until tomorrow. Awaiting further GI input. Hopeful to d/c tomorrow.
[2020-06-21 06:47] LABS: Phosphorus 2.5 mg/dL (2.3-4.7)
[2020-06-21] MEDS: PHOS-NAK 1 PKT PACK PO SCH ×2 (08:02→20:57)
[2020-06-21] MEDS: Multivit, Therapeutic 1 TAB PO SCH (08:03)
[2020-06-21] MEDS: Furosemide 40 MG TAB PO SCH (08:03)
[2020-06-21] MEDS: prednisoLONE 10 MG ODT TAB PO SCH (08:03)
[2020-06-21] MEDS: Magnesium Oxide 250 MG TAB PO SCH (08:03)
[2020-06-21] MEDS: Thiamine 100 MG TAB PO SCH (08:03)
[2020-06-21] MEDS: Potassium Chloride 10 MEQ TAB PO SCH (08:04)
[2020-06-21] MEDS: Folic Acid 1 MG TAB PO SCH (08:04)
--- NOTE | 2020-06-21 18:43 | PRG ---
DATE OF SERVICE: 06/21/2020 SUBJECTIVE: Mr. Morgan is without complaint. He is mostly bedridden, although he was able to get out of bed and ambulate to the door twice today. He has no nausea or vomiting, and tolerating all oral intake well. Denies any abdominal pain. PHYSICAL EXAMINATION: VITAL SIGNS: Temperature is 97.7, blood pressure 127/61, and pulse of 97. GENERAL: He is alert, lucid, in no distress. HEENT: Shows icteric sclerae. CV: Shows normal S1 and S2. Regular rate and rhythm. CHEST: Shows bilateral breath sounds, no adventitious sounds. ABDOMEN: Very protuberant, nontender. normal active bowel sounds. No tenderness. Organomegaly cannot be assessed. EXTREMITIES: Show 1+ edema. LABORATORY DATA: WBCs 5.3, hemoglobin 10.6, and platelet count of 302. Electrolytes within normal range. Creatinine 0.74, bilirubin 15.7, AST 150, ALT of 95, and alkaline phosphatase 414. ASSESSMENT: Severe alcoholic hepatitis, clinically stable. The patient has been on prednisolone since last week. His bilirubin is trending down from a high of 20 to current 15. RECOMMENDATIONS: 1. Continue prednisolone. 2. The patient can be discharged home to complete 28-day course of prednisolone. Ultimately, his prognosis will rest on whether he will be able to completely abstain from alcohol or not. Job ID: [id number] MTDD
[2020-06-22] MEDS: cefTRIAXone\\ROCEPHIN 1 GM in Sodium Chloride 0.9% 100 ML IVPB SCH (00:35)
[2020-06-22 04:07] LABS: #Eosinphils 0.1 thou/uL (0.0-0.7); #Lymphocytes 1.2 thou/uL (1.20-3.40); #Monocytes 0.8 thou/uL (0.11-0.59); #Neutrophils 3.8 thou/uL (1.40-6.50); %Basophils 0.4 % (0.0-1.0); %Eosinophils 1.5 % (0.0-10.0); %Lymphocytes 20.9 % (21.0-51.0); %Monocytes 13.6 % (0.0-10.0); %Neutrophils 63.7 % (42.0-75.0); Hemoglobin 10.7 g/dL (14.0-18.0); Mean Corpuscular HGB CONC 31.9 g/dL (32.0-36.0); Mean Corpuscular Hemoglobin 32.4 pg (27.0-31.0); Mean Platelet Volume 8.4 fL (7.4-10.4); Platelet Count 326 thou/uL (130-400); RBC Distribution Width 21.1 % (11.5-14.5); Red Blood Cell (RBC) Count 3.31 mill/uL (4.70-6.10); White Blood Cell (WBC) Count 5.9 thou/uL (4.8-10.8)
[2020-06-22 04:15] LABS: INR-International Normal Ratio 1.2; Prothrombin Time 15.2 sec (12.0-14.7)
[2020-06-22 04:32] LABS: ALT (SGPT) 115 U/L (8-55); AST (SGOT) 168 U/L (5-34); Albumin 2.8 g/dL (3.5-5.0); Alkaline Phosphatase 457 U/L (40-110); Anion Gap 12 mmol/L (10-20); BUN (Urea Nitrogen) 13 mg/dL (8.9-20.6); Bilirubin, Total 13.3 mg/dL (0.2-1.2); Calc. Creatinine Clearance 287 mL/min (70-130); Calcium 8.4 mg/dL (7.8-10.44); Carbon Dioxide 31 mmol/L (22-29); Chloride 94 mmol/L (98-107); Estimated GFR-MDRD Greater than 90; Globulin 3.3 g/dL (2.4-3.5); Glucose 84 mg/dL (70-105); Potassium 3.7 mmol/L (3.5-5.1); Protein, Total 6.1 g/dL (6.0-8.3); Sodium 133 mmol/L (136-145)
[2020-06-22 04:49] LABS: PTT 22.4 sec (22.9-36.1)
--- NOTE | 2020-06-22 05:54 | PDOC.FM ---
- Subjective Subjective: Patient reports no acute concerns and no acute events overnight. He slept well and was breathing well with CPAP. Discussed discharge today and importance of abstaining from etoh. He had 2 mins of A flutter on tele at around 4 am. pt was asymptomatic. - Objective MAR Reviewed: Yes Vital Signs & Weight: Vital Signs (12 hours) Temp Pulse Resp BP Pulse Ox 06/22/20 04:00 97.7 F 99 22 H 143/68 H 96 06/22/20 03:49 99 06/21/20 23:55 98 06/21/20 20:00 97.7 F 99 16 143/69 H 96 Weight Admit Weight 169.445 kg Weight 168.328 kg Most Recent Monitor Data Heart Rate from ECG 114 NIBP 105/58 NIBP BP-Mean 73 Respiration from ECG 17 SpO2 99 I&O: 06/20/20 06/21/20 06/22/20 06:59 06:59 06:59 Intake Total 960 1700 950 Output Total 3880 2375 1550 Balance -2987 -675 -600 Result Diagrams: 06/22/20 03:31 06/22/20 03:31 Phys Exam - Physical Examination Constitutional: NAD HEENT: moist MMs scleral icterus Respiratory: no wheezing, no rales, no rhonchi, clear to auscultation bilateral Cardiovascular: RRR, no significant murmur, no rub Gastrointestinal: soft, non-tender, no distention, positive bowel sounds significant LE edema Neurological: non-focal, moves all 4 limbs Psychiatric: normal affect, A&O x 3 Skin: no rash, cap refill <2 seconds Dx/Plan - Plan Plan: Acute hepatic failure - Likely acute alcoholic hepatitis - Protonix 40 mg QD - Consulted GI -Prednisolone 40 QD for 28 day course (21 more days) - trend LFTs, watch bilirubin Hypophosphatemia - PO BID while admitted, consider IV supplementation - Recheck in AM Respiratory acidosis with compensated metabolic alkalosis - likely chronic given COPD and JULIA diagnosis - CPAP at night Dizziness -> lightheadedness/presyncope - Patient reports sx start when he stands up from lying down/sitting - appears to be orthostatic hypotension Bilateral Conjunctivitis, improved - Likely bacterial given course and purulent discharge - polymyxin B/ TMP eye drops QID for 5 d Alcohol abuse - history of DT, question of seizure caused by DT vs hyponatremia - likely cause of chronic liver disease - ASE protocol - 2 mg Ativan q4h PRN per protocol - PO vitamin replacement Hypokalemia - Home KCl QD, replete magnesium - continue to monitor Hyponatremia - chronic, appears to be near baseline - continue to monitor COPD - Q4h PRN duonebs CHF - HFpEF - monitor fluid status - consider restarting lasix with improvement of CHRIS Lymphedema - Chronic condition - Monitor skin for breakdown - Home Lasix Hx of A flutter s/p ablation - sinus rhythm with episodes of tachycardia 90-100s on telemetry - Continue to monitor Hypotension, improving - Likely 2/2 orthostatic hypotension given low UOP with IVF treatment - patient does not appear hypervolemic on exam CHRIS, improved - Hepatorenal syndrome vs ATN - SCr improved to 0.76 from 1.65 with mIVF - Continue to monitor SCr False positive HIV test - positive HIV Ab screen, CD4 442 - reflex confirmation of HIV was negative - RPR nonreactive - Olu recs VTE: hold 2/2 liver dysfunction and hx of bleed Fluids: SL Diet: HH Code: Full Dispo: likely discharge today Addendum - Attending - Attending Attestation Date/Time: 06/22/20 0586 I personally evaluated the patient and discussed the management with Dr. Plunkett. I agree with the History, Examination, Assessment and Plan documented above with any addition or exceptions noted below. Patient labs continue to downtrend. GI has cleared for dc to complete steroid course outpatient for alcoholic hepatitis. 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
[2020-06-22] MEDS: Furosemide 40 MG TAB PO SCH (08:46)
[2020-06-22] MEDS: Magnesium Oxide 250 MG TAB PO SCH (08:46)
[2020-06-22] MEDS: Folic Acid 1 MG TAB PO SCH (08:47)
[2020-06-22] MEDS: prednisoLONE 10 MG ODT TAB PO SCH (08:47)
[2020-06-22] MEDS: Thiamine 100 MG TAB PO SCH (08:47)
[2020-06-22] MEDS: Multivit, Therapeutic 1 TAB PO SCH (08:47)
[2020-06-22] MEDS: Potassium Chloride 10 MEQ TAB PO SCH (08:47)
[2020-06-22] MEDS: PHOS-NAK 1 PKT PACK PO SCH (08:47)
[2020-06-22 17:42] VITALS: BP 132/68; TEMP 98.7
--- NOTE | 2020-06-23 04:14 | DIS ---
DATE OF ADMISSION: 06/14/2020 DATE OF DISCHARGE: 06/22/2020 RESIDENT: Jarad Plunkett MD ADMITTING ATTENDING: Ralph Starks MD DISCHARGE ATTENDING: George Scott MD CONSULTS: GI, Dr. Ji and Infectious Disease, Dr. Raines. PROCEDURES: Brain CT showing no acute intracranial processes. Chest x-ray showing right lower lobe opacity, no suspicious for atelectasis. Abdominal ultrasound showing chronic liver disease and fatty infiltration and cholelithiasis, concern for cholecystitis. Exam was technically difficult due to body habitus and overlying bowel gas. PRIMARY DIAGNOSIS: Acute liver failure. SECONDARY DIAGNOSES: Acute kidney injury, dizziness, bilateral conjunctivitis bacterial, alcohol abuse, hypokalemia, hyponatremia, chronic obstructive pulmonary disease, congestive heart failure, lymphedema chronic, history of atrial flutter/atrial fibrillation status post ablation, hypophosphatemia. DISCHARGE MEDICATIONS: 1. Aspirin 81 mg p.o. daily. 2. Tums 1000 mg p.o. q.4 hours. 3. Vitamin B12 of 2500 mcg p.o. daily. 4. Folic acid 1 mg p.o. daily. 5. Lasix 40 mg p.o. daily. 6. Magnesium oxide 1000 mg p.o. daily. 7. Metoprolol succinate 25 mg p.o. daily. 8. Multivitamin one tablet p.o. daily. 9. Pantoprazole 40 mg p.o. daily. 10. PHOS-NaK one packet p.o. b.i.d. 11. Potassium chloride 10 mEq p.o. daily. 12. Prednisolone 40 mg p.o. daily. 13. Thiamine 100 mg p.o. daily. DISCONTINUED MEDICATIONS: None. HISTORY OF PRESENT ILLNESS/HOSPITAL COURSE: The patient is a 49-year-old male with past medical history of alcoholism, COPD, heart failure with preserved ejection fraction, and chronic lymphedema, who presented to the ED for dizziness and malaise. The patient reports over the past week he has fallen out of bed twice with most recent fall being about three days ago. He reports that for the past two days, he had been feeling dizzy when he stands up. He also feels unsteady when walking. He denies any trauma or head injury with the falls. He also reports during this time he has been having blurry vision and eye discharge. He denies fevers. He also reports over the past week he has had increased shortness of breath with increased white sputum production and mild wheezing. He reports that his last alcohol drink was 5 to 6 days ago and normally drinks about 6 shots a day of vodka. Of note, he has a history of alcohol withdrawal and DT with seizures that could have been due to hyponatremia or delirium tremens. GI was consulted on the patient as he was leaving the ER. When I saw the patient the next day, they recommended starting prednisolone 40 mg daily. The patient received 1 L normal saline bolus in the ER. Labs were significant for a total bilirubin of 20.9 on admission. Labs also showed mild transaminitis. Negative Tylenol level. Ammonia level of 50. Alcohol level was negative. Ultrasound of the abdomen and other images on admission as shown above. The patient was found to have CHRIS with serum creatinine of 1.65. The patient's liver enzymes were stable during hospital admission. Bilirubin trended down to 13.3 on day of discharge. Other medical problems in the hospital included runs of atrial fibrillation/atrial flutter. These runs were typically 30 seconds to 2 minutes long. The patient was asymptomatic during these episodes and they typically occurred at night. The patient was started on 25 mg of metoprolol for that reason. For the CHRIS, the patient was given IV fluids over two days, which eventually led to increase urine output and reduction of serum creatinine. The patient was worked up for other causes of acute hepatitis. His hepatitis panel was negative. His HIV antibody test came back positive; however, confirmatory test showed that the patient was actually not HIV positive. His CD4 count was 442. His viral load was negative. We had many discussions with the patient about cessation of alcohol and then if he continued alcohol, he would likely experience significant health complications or even within the next year. The patient appears to understand the significance of alcohol cessation. DISPOSITION: Stable. DISCHARGE INSTRUCTIONS: 1. Location: Home. 2. Diet: Heart healthy. 3. Activity: As tolerated, outpatient physical therapy and occupational therapy ordered. 4. Followup: Follow up with your PCP, Dr. Garcia within 2 weeks and GI, Dr. Ji within 4 weeks. Job ID: [id number]
[2020-06-23 13:14] LABS: QuantiFERON-TB Gold Plus Negative (Negative)
--- NOTE | 2020-06-24 08:21 | PQF ---
CLINICAL DOCUMENTATION CLARIFICATION FORM: Dear : George Scott Date / Time: 06/24/2020 Please exercise your independent, professional judgment in responding to the clarification form. Clinical indicators are provided on the bottom of this form for your review Please check appropriate box(es) to clarify if the following diagnosis has been ruled in our ruled out: Hepatorenal syndrome [ ] Ruled in diagnosis [ ] Continue to treat [ ] Resolved [ X ] Ruled out diagnosis [ ] Improving [ ] Cannot rule out diagnosis [ ] Other diagnosis [ ] Unable to determine In addition, please specify: Present on Admission (POA): [ ] Yes [X ] No [ ] Unable to determine To be completed by CDI/Coding staff for physician review: Present Clinical Indicators - Signs / Symptoms / Labs Results and Location in Medical Record [ x ] CHRIS Administer fluids, likely secondary to dehydration. Monitor for progression of ATN vs hepatorenal H&P [ x ] CHRIS Hepatorenal syndrome vs ATN vs [id number] Scr Progress note 06/15 by Jarad Plunkett MD [ x ] Acute hepatis failure, concern for acute on chronic hepatic failure. Admission AST 180, ALT 79, etoh abuse Progress note 06/17 by Jarad Plunkett MD [ x ] Hepatorenal syndrome vs ATN, Scr improved to 0.76 from 1.65 with mIVF. Continue to monitor Scr Progress note 06/22 by George Scott MD Present Risk Factors Results and Location in Medical Record [ x ] Acute liver failure, likely acute alcohol hepatitis, alcohol abuse, CHRIS H& P Present Treatments Results and Location in Medical Record [ x ] IVF fluids 06/14 06/22 Medications CDS/Broker Assistant Signature: [email or web address] Phone #: Date/ Time: 06/24/2020 This is a permanent part of the Medical Record [facility]
--- NOTE | 2020-06-24 08:44 | PQF ---
CLINICAL DOCUMENTATION CLARIFICATION FORM: Dear : George Scott Date / Time: 06/24/20 Please exercise your independent, professional judgment in responding to the clarification form. Clinical indicators are provided on the bottom of this form for your review Please check appropriate box(es) to clarify if the following diagnosis has been ruled in our ruled out: Acute tubular necrosis [ ] Ruled in diagnosis [ ] Continue to treat [ ] Resolved [ X ]X Ruled out diagnosis [ ] Improving [ ] Cannot rule out diagnosis [ ] Other diagnosis [ ] Unable to determine In addition, please specify: Present on Admission (POA): [ ] Yes [ X ] No [ ] Unable to determine To be completed by CDI/Coding staff for physician review: Present Clinical Indicators - Signs / Symptoms / Labs Results and Location in Medical Record [ x ] CHRIS, history of dialysis. Administer fluids likely due to dehydration. Monitor for progression to ATN vs hepatorenal H&P [ x ] Creatinine 1.65 on 06/14 and 1.45 on 06/15. BUN is 21 on 06/14 Laboratory [ x ] Hepatorenal syndrome vs ATN baseline Scr < 1 mIVF monitor Scr Progress note 06/16 by Jarad Plunkett MD [ x ] CHRIS, hepatorenal vs ATN. Scr improved to 0.76 from 1.65 with mIVF. Continue to monitor Scr Progress note 06/18 by Dia Cortez MD Present Risk Factors Results and Location in Medical Record [ x ] Acute hepatic failure, alcoholic hepatitis, alcohol abuse, history of dialysis H&P Present Treatments Results and Location in Medical Record [ x ] IV fluids 06/14-06/22 Medications [ x ] Trend kidney function, hold nephrotoxic agents H&P CDS/Silver Steward Signature: [email or web address] Phone #: Date/ Time: 06/24/2020 This is a permanent part of the Medical Record [facility]
== END 2020-06-22 19:10 | disposition home or self-care (01) | DRG 433 ==
LOC: ERS 13:56 → T4-A 17:06 → ERHOLD 19:16 → T4-A 19:46 → IMCU/EMU 19:58 → 2NO 23:42
PROVIDERS: ADMIT Family Medicine; ATTEND Family Medicine
DX: K70.40 Alcoholic hepatic failure without coma (principal); E87.1 Hypo-osmolality and hyponatremia; D61.818 Other pancytopenia; N17.9 Acute kidney failure, unspecified; Z68.43 Body mass index [BMI] 50.0-59.9, adult; E87.4 Mixed disorder of acid-base balance; F10.239 Alcohol dependence with withdrawal, unspecified; I50.32 Chronic diastolic (congestive) heart failure; I48.92 Unspecified atrial flutter; Z20.828 Contact with and (suspected) exposure to other viral communicable diseases; J44.9 Chronic obstructive pulmonary disease, unspecified; I89.0 Lymphedema, not elsewhere classified; H10.9 Unspecified conjunctivitis; E87.6 Hypokalemia; K70.10 Alcoholic hepatitis without ascites; E83.39 Other disorders of phosphorus metabolism; E86.0 Dehydration; E86.9 Volume depletion, unspecified; E66.01 Morbid (severe) obesity due to excess calories; I11.0 Hypertensive heart disease with heart failure; G47.33 Obstructive sleep apnea (adult) (pediatric); K80.20 Calculus of gallbladder without cholecystitis without obstruction; I95.1 Orthostatic hypotension; Z88.8 Allergy status to other drugs, medicaments and biological substances; Z79.82 Long term (current) use of aspirin; Z90.49 Acquired absence of other specified parts of digestive tract; Z90.89 Acquired absence of other organs; Z87.891 Personal history of nicotine dependence; Z71.41 Alcohol abuse counseling and surveillance of alcoholic; Z91.19 Patient's noncompliance with other medical treatment and regimen
CPT/HCPCS: 36415; 70450; 71045; 76705; 80053; 80307; 81001; 82103; 82140; 82248; 82805; 83690; 83735; 83880; 84100; 84145; 85025; 85048; 85610; 85730; 86361; 86480; 86701; 86702; 86704; 86706; 86709; 86780; 86803; 87340; 87389; 87536; 87635; 93005; 93010; 94660; 96360; J0696; J3411; J3490; J7042; J7050; J7510; U0003

== ENCOUNTER 2020-09-05 20:02 | Inpatient (IN) | payer OTHER ==
[~2020-09-05 20:02] MED LIST: Heparin 1,000 UNITS/ML VIAL ONE
[2020-09-05] MEDS ORDERED: Magnesium 2 GM/50 ML BAG (IN WATER) ONE (20:30)
[2020-09-05] MEDS ORDERED: Cefepime 2 GM VIAL ONE (20:30)
[2020-09-05] MEDS ORDERED: Vancomycin 1 GM/200 ML BAG ONE (20:30)
[2020-09-05] MEDS ORDERED: Dexamethasone 4 mg/ml Vial ONE (20:33)
[2020-09-05 20:41] LABS: #Eosinphils 0.1 thou/uL (0.0-0.7); #Lymphocytes 0.8 thou/uL (1.20-3.40); #Monocytes 0.7 thou/uL (0.11-0.59); #Neutrophils 4.3 thou/uL (1.40-6.50); %Basophils 0.7 % (0.0-1.0); %Eosinophils 0.8 % (0.0-10.0); %Neutrophils 72.5 % (42.0-75.0); Hemoglobin 12.4 g/dL (14.0-18.0); Mean Corpuscular HGB CONC 32.5 g/dL (32.0-36.0); Mean Corpuscular Hemoglobin 27.9 pg (27.0-31.0); Mean Corpuscular Volume 85.7 fL (78.0-98.0); Mean Platelet Volume 7.4 fL (7.4-10.4); Platelet Count 226 thou/uL (130-400); RBC Distribution Width 16.7 % (11.5-14.5); Red Blood Cell (RBC) Count 4.44 mill/uL (4.70-6.10); White Blood Cell (WBC) Count 5.9 thou/uL (4.8-10.8)
[2020-09-05] MEDS ORDERED: Albuterol Sulfate 2.5 mg/3 ml Neb ONE (20:49)
--- NOTE | 2020-09-05 20:50 | RAD ---
RADIOGRAPH CHEST 1 VIEW: DATE: 09/05/2020 TIME: 8:36 PM HISTORY: 50-year-old male with cough and dyspnea COMPARISON: 06/14/2020 FINDINGS: There is a new finding of multifocal patchy mixed interstitial and alveolar infiltrates in the bilate ral lungs, mostly in the mid and lower lung zones. No pneumothorax. No cardiomegaly. Lateral costophrenic angles are not effaced. IMPRESSION: Multifocal bilateral infiltrates: Evidence for pneumonia, perhaps COVID-19 pneumonia
[2020-09-05 21:03] LABS: ALT (SGPT) 33 U/L (8-55); AST (SGOT) 88 U/L (5-34); Albumin 3.3 g/dL (3.5-5.0); Alkaline Phosphatase 359 U/L (40-110); Anion Gap 20 mmol/L (10-20); BUN (Urea Nitrogen) 6 mg/dL (8.9-20.6); CK (CPK) 29 U/L (30-200); Calc. Creatinine Clearance 0 mL/min (70-130); Calcium 8.9 mg/dL (7.8-10.44); Carbon Dioxide 31 mmol/L (22-29); Chloride 76 mmol/L (98-107); Globulin 4.5 g/dL (2.4-3.5); Glucose 111 mg/dL (70-105); Lipase 11 U/L (8-78); Potassium 4.7 mmol/L (3.5-5.1); Protein, Total 7.8 g/dL (6.0-8.3); Sodium 122 mmol/L (136-145)
[2020-09-05 21:12] LABS: Actual Bicarbonate (HCO3a) 35.3 mEq/L (22-28); Analyzer IN Cardio OR; CO2 Tension 45.2 mmHg (35.0-45.0); Calcium, Ionized (arterial) 1.03 mmol/L (1.12-1.30); Carboxyhemoglobin (COHb) 4.9 gm% (0.0-3.0); Hemoglobin (Hb) 12.6 g/dL (14.0-18.0); Potassium - ABG Lab 4.35 mmol/L (3.70-5.30); pH, Arterial 7.51 (7.35-7.45)
[2020-09-05] MEDS ORDERED: Aspirin Chewable 81 MG TAB ONE (21:32)
[2020-09-05] MEDS ORDERED: Enoxaparin Sodium 60 MG/0.6 ML SYRINGE ONE (21:32)
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
[2020-09-05] MEDS ORDERED: Ondansetron PF 4 MG/2 ML Vial IVP PRN (22:11)
[2020-09-05] MEDS ORDERED: Ondansetron ODT 4 MG TAB PO PRN (22:11)
[2020-09-05] MEDS ORDERED: Acetaminophen 325 MG TAB PO PRN (22:11)
[2020-09-05 22:31] LABS: SARS-CoV-2 NAA Rapid Test Not Detected (NotDetected)
[2020-09-05 22:37] LABS: Bacteria/HPF 2+ HPF (None Seen); Bilirubin Negative (Negative); Blood, Urine Negative (Negative); Clarity Clear (Clear); Glucose, Urine (Dipstick) Normal (Negative); Ketone, Urine Negative (Negative); Leukocyte 500 Leu/uL (Negative); Nitrite Negative (Negative); Protein, Urine (Dipstick) Negative (Neg-Trace); RBC/HPF 0-3 HPF (0-3); Specific Gravity, Urine 1.008 (1.002-1.036); Squamous Epithelial None Seen HPF (0-3); Urobilinogen Normal mg/dL (Less than 2); pH, Urine 6.5 (5.0-9.0)
[2020-09-05] MEDS ORDERED: Lorazepam 1 MG TAB PO PRN (23:15)
[2020-09-05 23:18] LABS: O2 Tension (PaO2), arterial 51.4 mmHg (80.0-100.0); Puncture Site LRA
[2020-09-06] MEDS ORDERED: cefTRIAXone\\ROCEPHIN 1 GM in Sodium Chloride 0.9% 100 ML IVPB SCH (01:00)
[2020-09-06] MEDS ORDERED: Furosemide 40 MG/4 ML VIAL SLOW IVP SCH ×2 (02:15→12:00)
[2020-09-06 02:44] LABS: #Lymphocytes 0.3 thou/uL (1.20-3.40); #Monocytes 0.2 thou/uL (0.11-0.59); #Neutrophils 4.3 thou/uL (1.40-6.50); %Basophils 0.4 % (0.0-1.0); %Eosinophils 0.1 % (0.0-10.0); %Lymphocytes 6.7 % (21.0-51.0); %Monocytes 3.5 % (0.0-10.0); %Neutrophils 89.4 % (42.0-75.0); Hemoglobin 11.6 g/dL (14.0-18.0); Mean Corpuscular HGB CONC 32.1 g/dL (32.0-36.0); Mean Corpuscular Hemoglobin 27.5 pg (27.0-31.0); Mean Corpuscular Volume 85.7 fL (78.0-98.0); Mean Platelet Volume 7.1 fL (7.4-10.4); Platelet Count 210 thou/uL (130-400); RBC Distribution Width 16.5 % (11.5-14.5); Red Blood Cell (RBC) Count 4.21 mill/uL (4.70-6.10); White Blood Cell (WBC) Count 4.9 thou/uL (4.8-10.8)
[2020-09-06 03:03] LABS: Anion Gap 12 mmol/L (10-20); BUN (Urea Nitrogen) 6 mg/dL (8.9-20.6); Calc. Creatinine Clearance 322 mL/min (70-130); Calcium 8.6 mg/dL (7.8-10.44); Carbon Dioxide 37 mmol/L (22-29); Chloride 78 mmol/L (98-107); Glucose 123 mg/dL (70-105); Potassium 4.3 mmol/L (3.5-5.1); Sodium 123 mmol/L (136-145)
[2020-09-06 03:18] LABS: ALT (SGPT) 26 U/L (8-55); AST (SGOT) 69 U/L (5-34); Alkaline Phosphatase 332 U/L (40-110); Anion Gap 14 mmol/L (10-20); BUN (Urea Nitrogen) 6 mg/dL (8.9-20.6); Bilirubin, Total 2.1 mg/dL (0.2-1.2); Calc. Creatinine Clearance 313 mL/min (70-130); Calcium 8.5 mg/dL (7.8-10.44); Carbon Dioxide 36 mmol/L (22-29); Chloride 78 mmol/L (98-107); Globulin 4.4 g/dL (2.4-3.5); Glucose 124 mg/dL (70-105); Potassium 4.3 mmol/L (3.5-5.1); Protein, Total 7.4 g/dL (6.0-8.3); Sodium 124 mmol/L (136-145)
--- NOTE | 2020-09-06 06:30 | PDOC.FM ---
- Subjective Subjective: Pt resting in bed with venti mask on. States his swelling in LE had been getting worse for the past week and had SOB with exertion, also complains of abd bloating. Has also had diarrhea for 3-4 days, 5-6 loose, watery stools per day. Has taken pepto bismol to help. - Objective Vital Signs & Weight: Vital Signs (12 hours) Temp Pulse Resp BP BP Pulse Ox 09/06/20 04:00 98.2 F 105 H 18 131/64 93 L 09/06/20 01:48 104 H 22 H 93 L 09/06/20 00:00 151/84 H 09/05/20 23:06 98 F 104 H 20 151/84 H 90 L 09/05/20 23:00 90 L Weight Weight 181.437 kg I&O: 09/04/20 09/05/20 09/06/20 06:59 06:59 06:59 Output Total 2350 Balance -2350 Result Diagrams: 09/06/20 02:32 09/06/20 02:32 Phys Exam - Physical Examination Constitutional: NAD morbidly obese Neck: supple Respiratory: wheezing present Cardiovascular: RRR distant heart sounds Gastrointestinal: soft, non-tender Musculoskeletal: edema present Neurological: non-focal Psychiatric: normal affect Deviation from normal: LE erythema, chronic skin changes, non-painful to palpation Dx/Plan - Plan Plan: #Acute Hypoxic Respiratory Failure 2/2 COPD exac vs CHF exac vs PNA -ABG O2 51, pH 7.5, COVID negative -on 3L NC at home, supposed to be on bipap at night but hasn't been able to get it -currently on venti mask at 9L, will wean as tolerated -CXR showed multifocal bilteral infiltrates, possible pna -given vanc and cefepime in ED, did not continue, on rocephin for UTI -procal 0.1, will trend -predinsone and duonebs jeb -given 80mg lasix IV overnight and had output of 2.5L, will continue IV treatment for now #Diarrhea -pending C diff studies -black stools likely due to recent use of pepto-bismol #Hyponatremia -Na 123 -this seems to be a chronic issue -continue to monitor #UTI, asymptomatic -UA + for leuks, bacteria -pending UCx -Abx: rocephin, to also cover for CAP with exception of atypicals #Transaminitis, likely related to ETOH abuse -AST/ALT 88/33 -most likely due to alcohol and hepatasteatosis -ASE protocol -on thiamine and ativan prn #HFpEF -continue with home meds, held home lasix PO -last echo was in 04/2019: EF 55-60%, mild valvular disease, study limited by body habitus -pending echo -monitor I/O, daily weights #Lymphedema - Chronic condition - Monitor skin for breakdown #Hx of A flutter s/p ablation -not on anticoagulation -Monitor HR CODE: FULL VTE: Lovenox DIET: HH, fluid restrict PCP: JOVITA: Jose Dispo: admitted to medicine. continue to monitor symptoms. LOS > 48hrs Addendum - Attending - Attending Attestation Date/Time: 09/06/20 4722 I personally evaluated the patient and discussed the management with Dr. Barragan. I agree with the History, Examination, Assessment and Plan documented above with any addition or exceptions noted below. Was receiving echo during exam. States breathing is improving. continue steroids and diuresis. added diamox due to elevated bicarb. hopefully d/c in the next 24-48 hours.
[2020-09-06] MEDS ORDERED: Dexamethasone 4 MG TAB PO SCH (08:00)
[2020-09-06] MEDS: Aspirin 81 mg Enteric Coated Tablet PO SCH (08:02)
[2020-09-06] MEDS: Cyanocobalamin (Vitamin B-12) 1,000 MCG TAB PO SCH (08:02)
[2020-09-06] MEDS: Folic Acid 1 MG TAB PO SCH (08:03)
[2020-09-06] MEDS: Thiamine 100 MG TAB PO SCH (08:03)
[2020-09-06] MEDS: Multivitamin W/ Minerals 1 TAB PO SCH (08:03)
[2020-09-06] MEDS: Potassium Chloride 10 MEQ TAB PO SCH (08:04)
[2020-09-06] MEDS: predniSONE 20 MG TAB PO SCH (08:04)
[2020-09-06] MEDS ORDERED: Albuterol Sulfate 4 mg SR Tablet PO SCH (09:00)
[2020-09-06] MEDS ORDERED: Furosemide 40 MG TAB PO SCH (09:00)
[2020-09-06] MEDS: AcetaZOLAMIDE 250 MG TAB PO SCH (12:29)
[2020-09-06] MEDS: chlordiazePOXIDE HCl 25 MG CAP PO SCH ×2 (12:30→23:07)
[2020-09-06] MEDS ORDERED: FLU VACC QS2020-21(6MOS UP)/PF 60 MCG/0.5 ML SYRINGE IM ONE (21:00)
[2020-09-07] MEDS: chlordiazePOXIDE HCl 25 MG CAP PO SCH ×3 (05:33→19:13)
[2020-09-07] MEDS: Furosemide 40 MG/4 ML VIAL SLOW IVP SCH ×2 (05:34→14:38)
--- NOTE | 2020-09-07 06:23 | PDOC.FM ---
- Subjective Subjective: Pt resting comfortably this morning. Says he still feels like he has extra fluid in his legs. Breathing is at baseline - Objective Vital Signs & Weight: Vital Signs (12 hours) Temp Pulse Resp BP BP Pulse Ox 09/07/20 04:00 98 F 96 20 132/70 132/70 95 09/07/20 02:18 86 20 93 L 09/07/20 00:00 98.0 F 99 22 H 129/71 97 09/06/20 22:42 103 H 24 H 89 L 09/06/20 20:00 116/62 96 09/06/20 19:21 98.0 F 107 H 20 115/62 96 09/06/20 19:12 103 H 20 94 L Weight Weight 181.437 kg I&O: 09/05/20 09/06/20 09/07/20 06:59 06:59 06:59 Intake Total 880 Output Total 2350 1525 Balance -6150 -662 Result Diagrams: 09/07/20 06:10 09/07/20 06:10 Phys Exam - Physical Examination Constitutional: NAD morbid obesity Neck: supple Respiratory: wheezing present Cardiovascular: RRR distant heart sounds Gastrointestinal: soft, non-tender Musculoskeletal: edema present Neurological: non-focal Psychiatric: A&O x 3 Deviation from normal: LE chronic skin changes Dx/Plan - Plan Plan: 50yo male with morbid obesity, COPD and CHF presents w/ increased swelling and SOB #Acute Hypoxic Respiratory Failure 2/2 COPD exac vs CHF exac -on 3L NC, this is his baseline, supposed to be on bipap at night but hasn't been able to get it -procal 0.1 -predinsone and duonebs jeb -on lasix IV 40mg bid -I/O: -4L total #Diarrhea -resolved #Hyponatremia -Na 129 -this seems to be a chronic issue -continue to monitor #UTI, asymptomatic -UA + for leuks, bacteria -pending UCx -Abx: rocephin, to also cover for CAP #Transaminitis, likely related to ETOH abuse -AST/ALT 60/26, improving -most likely due to alcohol and hepatasteatosis -ASE protocol -on thiamine and librium taper #HFpEF -continue with home meds, held home lasix PO -echo: EF 55-60%, poor quality due to body habitus -monitor I/O, daily weights #Lymphedema - Chronic condition - Monitor skin for breakdown #Hx of A flutter s/p ablation -not on anticoagulation -Monitor HR CODE: FULL VTE: Lovenox DIET: HH, fluid restrict PCP: JANNETH Garcia Dispo: admitted to medicine. continue diuresing. LOS > 48hrs Addendum - Attending - Attending Attestation Date/Time: 09/07/20 1322 I personally evaluated the patient and discussed the management with Dr. Barragan. I agree with the History, Examination, Assessment and Plan documented above with any addition or exceptions noted below. clinically improving but still c/o SOB. will observe one more night and anticipate d/c tomorrow.
[2020-09-07 06:28] LABS: #Lymphocytes 0.9 thou/uL (1.20-3.40); #Monocytes 0.7 thou/uL (0.11-0.59); #Neutrophils 4.3 thou/uL (1.40-6.50); %Basophils 0.4 % (0.0-1.0); %Eosinophils 0.1 % (0.0-10.0); %Lymphocytes 14.6 % (21.0-51.0); %Monocytes 12.1 % (0.0-10.0); %Neutrophils 72.8 % (42.0-75.0); Hemoglobin 10.9 g/dL (14.0-18.0); Mean Corpuscular HGB CONC 30.9 g/dL (32.0-36.0); Mean Corpuscular Hemoglobin 27.2 pg (27.0-31.0); Mean Platelet Volume 7.1 fL (7.4-10.4); Platelet Count 228 thou/uL (130-400); RBC Distribution Width 16.7 % (11.5-14.5); Red Blood Cell (RBC) Count 4.02 mill/uL (4.70-6.10)
[2020-09-07 06:52] LABS: ALT (SGPT) 26 U/L (8-55); AST (SGOT) 60 U/L (5-34); Albumin 3.1 g/dL (3.5-5.0); Alkaline Phosphatase 275 U/L (40-110); BUN (Urea Nitrogen) 8 mg/dL (8.9-20.6); Bilirubin, Total 1.2 mg/dL (0.2-1.2); Calc. Creatinine Clearance 290 mL/min (70-130); Globulin 4.1 g/dL (2.4-3.5); Glucose 109 mg/dL (70-105); Protein, Total 7.2 g/dL (6.0-8.3)
[2020-09-07 07:04] LABS: Anion Gap 19 mmol/L (10-20); Carbon Dioxide 33 mmol/L (22-29); Chloride 81 mmol/L (98-107); Potassium 3.6 mmol/L (3.5-5.1); Sodium 129 mmol/L (136-145)
[2020-09-07] MEDS: Aspirin 81 mg Enteric Coated Tablet PO SCH (08:22)
[2020-09-07] MEDS: Multivitamin W/ Minerals 1 TAB PO SCH (08:23)
[2020-09-07] MEDS: AcetaZOLAMIDE 250 MG TAB PO SCH (08:23)
[2020-09-07] MEDS: Cyanocobalamin (Vitamin B-12) 1,000 MCG TAB PO SCH (08:23)
[2020-09-07] MEDS: predniSONE 20 MG TAB PO SCH (08:24)
[2020-09-07] MEDS: Folic Acid 1 MG TAB PO SCH (08:24)
[2020-09-07] MEDS: Potassium Chloride 10 MEQ TAB PO SCH (08:24)
[2020-09-07] MEDS: Thiamine 100 MG TAB PO SCH (08:24)
[2020-09-08] MEDS: chlordiazePOXIDE HCl 25 MG CAP PO SCH ×3 (00:28→21:24)
[2020-09-08] MEDS: Furosemide 40 MG/4 ML VIAL SLOW IVP SCH ×2 (05:21→15:17)
[2020-09-08 06:03] LABS: #Lymphocytes 1.2 thou/uL (1.20-3.40); #Monocytes 0.7 thou/uL (0.11-0.59); #Neutrophils 4.2 thou/uL (1.40-6.50); %Basophils 0.6 % (0.0-1.0); %Eosinophils 0.3 % (0.0-10.0); %Lymphocytes 19.8 % (21.0-51.0); %Monocytes 11.2 % (0.0-10.0); %Neutrophils 68.1 % (42.0-75.0); Hemoglobin 11.1 g/dL (14.0-18.0); Mean Corpuscular HGB CONC 30.4 g/dL (32.0-36.0); Mean Corpuscular Hemoglobin 27.5 pg (27.0-31.0); Mean Corpuscular Volume 90.7 fL (78.0-98.0); Mean Platelet Volume 7.1 fL (7.4-10.4); Platelet Count 214 thou/uL (130-400); RBC Distribution Width 16.6 % (11.5-14.5); Red Blood Cell (RBC) Count 4.04 mill/uL (4.70-6.10); White Blood Cell (WBC) Count 6.1 thou/uL (4.8-10.8)
[2020-09-08 06:23] LABS: ALT (SGPT) 48 U/L (8-55); AST (SGOT) 114 U/L (5-34); Albumin 3.1 g/dL (3.5-5.0); Alkaline Phosphatase 277 U/L (40-110); BUN (Urea Nitrogen) 10 mg/dL (8.9-20.6); Bilirubin, Total 1.3 mg/dL (0.2-1.2); Calc. Creatinine Clearance 283 mL/min (70-130); Calcium 8.9 mg/dL (7.8-10.44); Globulin 4.1 g/dL (2.4-3.5); Glucose 96 mg/dL (70-105); Protein, Total 7.2 g/dL (6.0-8.3)
[2020-09-08 06:33] LABS: Anion Gap 15 mmol/L (10-20); Carbon Dioxide 35 mmol/L (22-29); Chloride 84 mmol/L (98-107); Potassium 3.5 mmol/L (3.5-5.1); Sodium 130 mmol/L (136-145)
--- NOTE | 2020-09-08 06:35 | PDOC.FM ---
- Subjective Subjective: Pt says his breathing is worse since being in the hospital, feels like he can't take a deep breath. No CP. Was not able to work with PT yesterday due to SOB. - Objective Vital Signs & Weight: Vital Signs (12 hours) Temp Pulse Resp BP BP Pulse Ox 09/08/20 04:00 151/67 H 09/08/20 03:48 97.8 F 98 20 151/67 H 96 09/08/20 02:40 100 16 95 09/08/20 00:00 154/84 H 09/07/20 23:54 97.7 F 95 22 H 153/84 H 96 09/07/20 21:58 95 20 96 09/07/20 20:00 151/78 H 09/07/20 19:38 97.8 F 97 22 H 151/78 H 97 09/07/20 19:03 103 H 20 93 L Weight Weight 181.437 kg I&O: 09/06/20 09/07/20 09/08/20 06:59 06:59 06:59 Intake Total 1330 1314 Output Total 2356 4731 6960 Balance -7001 -1745 -0941 Result Diagrams: 09/08/20 05:21 09/08/20 05:21 Phys Exam - Physical Examination Constitutional: NAD morbid obestity Neck: supple Respiratory: wheezing present, clear to auscultation bilateral Cardiovascular: RRR, no significant murmur Gastrointestinal: soft, non-tender, no distention Musculoskeletal: edema present Neurological: non-focal Psychiatric: normal affect Deviation from normal: LE chronic skin changes Dx/Plan (1) Acute and chronic respiratory failure with hypoxia Code(s): J96.21 - ACUTE AND CHRONIC RESPIRATORY FAILURE WITH HYPOXIA Status: Acute (2) Alcohol abuse Code(s): F10.10 - ALCOHOL ABUSE, UNCOMPLICATED Status: Chronic (3) HTN (hypertension) Code(s): I10 - ESSENTIAL (PRIMARY) HYPERTENSION Status: Chronic Qualifiers: (4) Lymphedema of both lower extremities Code(s): I89.0 - LYMPHEDEMA, NOT ELSEWHERE CLASSIFIED Status: Chronic (5) Transaminitis Code(s): R74.0 - NONSPEC ELEV OF LEVELS OF TRANSAMNS & LACTIC * DO NOT USE * Status: Chronic (6) Morbid obesity with BMI of 70 and over, adult Code(s): E66.01 - MORBID (SEVERE) OBESITY DUE TO EXCESS CALORIES; Z68.45 - BODY MASS INDEX [BMI] 70 OR GREATER, ADULT Status: Acute - Plan Plan: 50yo male with morbid obesity, COPD and CHF presents w/ increased swelling and SOB #Acute Hypoxic Respiratory Failure 2/2 COPD exac vs CHF exac -on 3L NC, this is his baseline, supposed to be on bipap at night but hasn't been able to get it -destini and gene [facility] -will repeat BNP and CXR due to worsening of SOB -switch IV lasix to home po dose -I/O: -6L total #Diarrhea -resolved #Hyponatremia -Na 129 -this seems to be a chronic issue -continue to monitor #UTI, asymptomatic -UA + for leuks, bacteria -pending UCx -Abx: rocephin, to also cover for CAP #Transaminitis, likely related to ETOH abuse -AST/ALT 60/26, improving -most likely due to alcohol and hepatasteatosis -ASE protocol -on thiamine and librium taper #HFpEF -continue with home meds, held home lasix PO -echo: EF 55-60%, poor quality due to body habitus -monitor I/O, daily weights #Lymphedema - Chronic condition - Monitor skin for breakdown #Hx of A flutter s/p ablation -not on anticoagulation -Monitor HR CODE: FULL VTE: Lovenox DIET: HH, fluid restrict PCP: JANNETH Garcia Dispo: admitted to medicine. continue diuresing. LOS > 48hrs Addendum - Attending - Attending Attestation Date/Time: 09/08/20 1257 I personally evaluated the patient and discussed the management with Dr. Barragan. I agree with the History, Examination, Assessment and Plan documented above with any addition or exceptions noted below. BNP elevated today after large diuresis. move to tele. d-dimer to r/o PE. CXR looks concerning for worsening fluid overload. Will continue to aggressively diuresis. Procal down trending. Do not suspect infection. Likely mixed COPD exacerbation with CHF exacerbation.
[2020-09-08] MEDS ORDERED: Furosemide 20 MG TAB PO SCH (09:00)
[2020-09-08] MEDS ORDERED: Furosemide 40 MG TAB PO SCH (09:00)
[2020-09-08] MEDS ORDERED: chlordiazePOXIDE HCl 5 MG CAP PO SCH (09:00)
[2020-09-08] MEDS: Cyanocobalamin (Vitamin B-12) 1,000 MCG TAB PO SCH (09:43)
[2020-09-08] MEDS: Aspirin 81 mg Enteric Coated Tablet PO SCH (09:43)
[2020-09-08] MEDS: predniSONE 20 MG TAB PO SCH (09:43)
[2020-09-08] MEDS: Potassium Chloride 10 MEQ TAB PO SCH (09:44)
[2020-09-08] MEDS: Folic Acid 1 MG TAB PO SCH (09:44)
[2020-09-08] MEDS: Multivitamin W/ Minerals 1 TAB PO SCH (09:44)
[2020-09-08] MEDS: Thiamine 100 MG TAB PO SCH (09:45)
--- NOTE | 2020-09-08 11:54 | RAD ---
CHEST 1 VIEW: Date: 09/08/2020 INDICATION: History of shortness of breath. COMPARISON: Prior exam dated 09/05/2020. FINDINGS: Bilateral pneumonia is stable appearing. Mild cardiomegaly is stable appearing. No pleural effusion o r pneumothorax evident. IMPRESSION: Stable bilateral pneumonia. POS: [facility] [place]
--- NOTE | 2020-09-08 14:06 | PQF ---
CLINICAL DOCUMENTATION CLARIFICATION FORM: Dear Dr. Barragan Date: 09/08/20 Please exercise your independent, professional judgment in responding to the clarification form. Clinical indicators are provided on the bottom of this form for your review. Please check appropriate box(es): HEART FAILURE: TYPE: [ ] Systolic / HFrEF [x ] Diastolic / HFpEF [ ] Combined Systolic / Diastolic [ ] Hypertensive Heart and Kidney disease [ ] Hypertensive Heart Disease [ ] Hypertensive Kidney Disease [ ] Other diagnosis [ ] Unable to determine In addition, please specify: Present on Admission (POA): [ x] Yes [ ] No [ ] Unable to determine For continuity of documentation, please document condition throughout progress notes and discharge summary. Thank You. To be completed by CDI/Coding staff for physician review: CLINICAL INDICATORS - SIGNS / SYMPTOMS / LABS / RESULTS AND LOCATION IN EMR ECHOCARDIOGRAM 09/06: "EJECTION FRACTION IS VISUALLY ESTIMATED AT 55-60% CHEST XRAY 09/05: "THERE IS A NEW FINDING OF MULTIFOCAL PATCHY MIXED INTERSTITIAL INFILTRATES IN THE BILATERAL LUNGS, MOSTLY IN THE MID AND LOWER ZONES." PN 09/08: "LIKELY CHF EXACERBATION" BNP 09/08: 156.7 RISKS FACTORS / RESULTS AND LOCATION IN EMR H/O CHF INCREASED SWELLING AND SHORTNESS OF BREATH (PN 09/08- NOEL) TREATMENTS / RESULTS AND LOCATION IN EMR ECHOCARDIOGRAM IV LASIX (09/07-PRESENT) DIAMOX (09/06-09/07) CDS Signature: Maria De Jesus Whalen RN Phone #: [phone] Date: 09/08/20 MILA
--- NOTE | 2020-09-08 14:31 | PQF ---
CLINICAL DOCUMENTATION CLARIFICATION FORM: Dear Dr. Barragan Date: 09/08/20 Please exercise your independent, professional judgment in responding to the clarification form. Clinical indicators are provided on the bottom of this form for your review. Please check appropriate box(es) to clarify if the following diagnosis has been ruled in our ruled out: "PNEUMONIA" [ ] Ruled in diagnosis [ ] Continue to treat [ ] Resolved [ x ] Ruled out diagnosis [ ] Improving [ ] Cannot rule out diagnosis [ ] Other diagnosis [ ] Unable to determine In addition, please specify: Present on Admission (POA): [ x] Yes [ ] No [ ] Unable to determine For continuity of documentation, please document condition throughout progress notes and discharge summary. Thank You. To be completed by CDI/Coding staff for physician review: CLINICAL INDICATORS - SIGNS / SYMPTOMS / LABS / RESULTS AND LOCATION IN MR PN 09/06 (NOEL): "ACUTE HYPOXIC RESPIRATORY FAILURE 2/2 COPD EXAC VS CHF VS PNA." "POSSIBLE PNA" PN 09/07 (NOEL): "ACUTE HYPOXIC RESPIRATORY FAILURE 2/2 COPD EXAC VS CHF EXAC" CHEST XRAY 09/08: "BILATERAL PNEUMONIA IS STABLE APPEARING. NO PLEURAL EFFUSION OR PNEUMOTHORAX EVIDENT" IMPRESSION: STABLE BILATERAL PNEUMONIA" RISK FACTORS / RESULTS AND LOCATION IN MR ACUTE HYPOXIC RESPIRATORY FAILURE (PN 09/08) MORBID OBESITY (BMI 73) H/O COPD (ER NOTE) TREATMENTS / RESULTS AND LOCATION IN MR ALBUTEROL INHALATION (ER) DUONEBS (ER-PRESENT) IV VANCOMYCIN (ER) IV DEXAMETHASONE SODIUM PHOSPHATE INJECTION (ER) IV CEFEPIME (ER) PREDNISONE (09/06-PRESENT) CDS Signature: Maria De Jesus Whalen RN Phone #: [phone] Date: 09/08/20 This is a permanent part of the Medical Record [facility]
[2020-09-08] MEDS ORDERED: Iopamidol-370 76% 500 ML 1 ML ONE (14:40)
--- NOTE | 2020-09-08 17:06 | CT ---
CTA CHEST WITH CONTRAST: Date: 09/08/2020 Axial tomograms obtained following angio protocol with multiplanar reconstruction and 3D postprocessi ng. INDICATION: Tachycardia. Shortness of breath with elevated D-Dimer. FINDINGS: There is cardiomegaly with vascular congestion noted. The pulmonary arteries are suboptimally opacified and distal emboli cannot be definitely excluded. Th ere is no evidence of proximal pulmonary emboli to the segmental level. There are scattered areas of patchy atelectasis and/or confluent infiltrates seen throughout both janessa gs. Areas of hazy ground-glass opacity could represent edema. Small left effusion, some of which appe ars to be loculated in the mid posterior left lung. Associated dense atelectasis of the left posterio r mid lung probably superior left lower lobe. Nonspecific mediastinal lymph nodes with nonspecific me diastinal and hilar adenopathy. The thoracic aorta is opacified and there is no evidence of dissection or aneurysm. Upper abdomen shows splenomegaly. Numerous small gallstones in the neck of the gallbladder. Vertebral bodies maintain height and alignment with moderate degenerative change. IMPRESSION: 1. Suboptimal opacification of pulmonary arteries. No evidence of proximal pulmonary embolus. 2. Cardiomegaly with vascular congestion. 3. Scattered patchy bilateral areas of atelectasis and/or confluent infiltrate. Loculated fluid in t he left mid lung with associated dense lung atelectasis, probably involving superior segment left low er lobe. Multifocal infiltrates and atelectasis superimposed on vascular congestion and edema would b e suspected. 4. Nonspecific mediastinal and hilar adenopathy. 5. Cholelithiasis. 6. Splenomegaly. POS: [facility]
[2020-09-09] MEDS ORDERED: Furosemide 40 MG/4 ML VIAL SLOW IVP SCH (03:30)
[2020-09-09] MEDS ORDERED: Potassium Chloride 20 MEQ TAB PO SCH (04:00)
[2020-09-09] MEDS ORDERED: Albuterol Sulfate 2.5 mg/3 ml Neb NEB SCH (05:00)
[2020-09-09 05:01] LABS: ALT (SGPT) 88 U/L (8-55); AST (SGOT) 145 U/L (5-34); Albumin 3.1 g/dL (3.5-5.0); Alkaline Phosphatase 263 U/L (40-110); BUN (Urea Nitrogen) 10 mg/dL (8.9-20.6); Bilirubin, Total 1.1 mg/dL (0.2-1.2); Calc. Creatinine Clearance 287 mL/min (70-130); Calcium 8.9 mg/dL (7.8-10.44); Globulin 3.9 g/dL (2.4-3.5); Glucose 105 mg/dL (70-105)
[2020-09-09 05:10] LABS: Anion Gap 20 mmol/L (10-20); Carbon Dioxide 33 mmol/L (22-29); Chloride 85 mmol/L (98-107); Potassium 3.6 mmol/L (3.5-5.1); Sodium 134 mmol/L (136-145)
--- NOTE | 2020-09-09 06:52 | PDOC.FM ---
- Subjective Subjective: Pt sleeping well on BIPAP. He had O2 sats at 51% overnight and was started on bipap. Refused ABG. - Objective Vital Signs & Weight: Vital Signs (12 hours) Temp Pulse Resp BP BP Pulse Ox 09/09/20 03:17 97.3 F L 95 20 137/73 137/73 97 09/09/20 02:53 100 18 94 L 09/09/20 02:08 98 14 95 09/09/20 01:29 96 09/09/20 00:00 98.5 F 97 20 137/68 137/68 94 L 09/08/20 21:50 99 20 96 09/08/20 21:25 96 09/08/20 19:45 98.2 F 104 H 20 146/65 H 146/65 H 96 Weight Weight 181.437 kg I&O: 09/07/20 09/08/20 09/09/20 06:59 06:59 06:59 Intake Total 1330 1314 1220 Output Total 3070 0513 2870 Balance -5166 -1990 -7769 Result Diagrams: 09/08/20 05:21 09/09/20 04:06 Phys Exam - Physical Examination Constitutional: NAD on bipap Neck: supple Respiratory: no wheezing, clear to auscultation bilateral Cardiovascular: RRR, no significant murmur Gastrointestinal: soft, non-tender Musculoskeletal: edema present Neurological: non-focal Psychiatric: A&O x 3 Dx/Plan (1) Acute and chronic respiratory failure with hypoxia Code(s): J96.21 - ACUTE AND CHRONIC RESPIRATORY FAILURE WITH HYPOXIA Status: Acute (2) Alcohol abuse Code(s): F10.10 - ALCOHOL ABUSE, UNCOMPLICATED Status: Chronic (3) HTN (hypertension) Code(s): I10 - ESSENTIAL (PRIMARY) HYPERTENSION Status: Chronic Qualifiers: (4) Lymphedema of both lower extremities Code(s): I89.0 - LYMPHEDEMA, NOT ELSEWHERE CLASSIFIED Status: Chronic (5) Transaminitis Code(s): R74.0 - NONSPEC ELEV OF LEVELS OF TRANSAMNS & LACTIC * DO NOT USE * Status: Chronic (6) Morbid obesity with BMI of 70 and over, adult Code(s): E66.01 - MORBID (SEVERE) OBESITY DUE TO EXCESS CALORIES; Z68.45 - BODY MASS INDEX [BMI] 70 OR GREATER, ADULT Status: Acute - Plan Plan: 50yo male with morbid obesity, COPD and CHF presents w/ increased swelling and SOB #Acute Hypoxic Respiratory Failure 2/2 COPD exac vs CHF exac -desat overnight, placed on bipap, refused ABG, repeat CXR: vascular congestion, unchanged from previous -yesterday elevated d-dimer, CTA: no PE, loculation left lobe, atelectasis, congestion and edema -predinsone and duonebs jeb -BNP increased, pending procal for evaluation of possible pna -continue IV lasix, will add metolazone -I/O: -8.5L total -needs cpap at night, will need outpt f/u to help set up -LO 04/2019 showed right side chamber enlargement -consider consulting cardiolog, Dr Lorenzo, for further HF eval #Transaminitis -AST/ALT 145/88, worsening -likely due to congestion, plan as above -also hx of EtOH abuse -continue to monitor #Diarrhea -resolved #Hyponatremia -Na 134 -this seems to be a chronic issue -continue to monitor #UTI, asymptomatic -UA + for leuks, bacteria -pending UCx -rocephin dc'd #EtOH abuse -ASE protocol -on thiamine and librium taper #HFpEF -continue with home meds, held home lasix PO -echo: EF 55-60%, poor quality due to body habitus -monitor I/O, daily weights #Lymphedema - Chronic condition - Monitor skin for breakdown #Hx of A flutter s/p ablation -not on anticoagulation -Monitor HR CODE: FULL VTE: Lovenox DIET: HH, fluid restrict PCP: JANNETH Garcia Dispo: admitted to tele. continue diuresing. LOS > 48hrs Addendum - Attending - Attending Attestation Date/Time: 09/09/20 3300 I personally evaluated the patient and discussed the management with Dr. Barragan. I agree with the History, Examination, Assessment and Plan documented above with any addition or exceptions noted below. His LFTs have worsened today. Will give additional day of diuresis and if no improvement tomorrow, consider cardiology consultation for further recommendations. He is diuresing well but likely has a significant amount of fluid that will take several days to mobilize. Continue nocturnal BiPAP as needed. The likely cause of his HF is due to JULIA/Obesity hypoventilation.
--- NOTE | 2020-09-09 08:08 | RAD ---
PORTABLE CHEST: INDICATION: Hypoxia. COMPARISON: 09/08/2020. FINDINGS/IMPRESSION: Cardiomegaly with vascular congestion. Bilateral hazy and patchy infiltrates are again seen, not sig nificantly changed from 09/08/2020. POS: OFF
[2020-09-09] MEDS ORDERED: chlordiazePOXIDE HCl 25 MG CAP PO SCH (09:00)
[2020-09-09] MEDS: Furosemide 40 MG/4 ML VIAL SLOW IVP SCH ×2 (09:53→14:52)
[2020-09-09] MEDS: Potassium Chloride 10 MEQ TAB PO SCH (09:53)
[2020-09-09] MEDS: Cyanocobalamin (Vitamin B-12) 1,000 MCG TAB PO SCH (09:53)
[2020-09-09] MEDS: Folic Acid 1 MG TAB PO SCH (09:54)
[2020-09-09] MEDS: Multivitamin W/ Minerals 1 TAB PO SCH (09:54)
[2020-09-09] MEDS: predniSONE 20 MG TAB PO SCH (09:54)
[2020-09-09] MEDS: Aspirin 81 mg Enteric Coated Tablet PO SCH (09:55)
[2020-09-09] MEDS: Thiamine 100 MG TAB PO SCH (09:55)
[2020-09-09] MEDS ORDERED: Metolazone 5 MG TAB PO SCH (12:00)
[2020-09-10] MEDS ORDERED: Enoxaparin Sodium 40 MG/0.4 ML SYRINGE SC SCH ×2 (01:15→21:00)
[2020-09-10] MEDS ORDERED: Diltiazem 125 MG in Sodium Chloride 0.9% 100 ML IVPB SCH ×2 (01:15→08:20)
--- NOTE | 2020-09-10 01:18 | PDOC.BPN ---
- Brief Progress Note Encounter Date: 09/10/20 Encounter Time: 01:00 Paged with report that patient was found to be saturating in the 70s with bipap off. Bipap was replaced and saturation improved to 90s. Approximately 20 min later, pt noted to be in afib/aflutter with rate 140-160s on tele. Asymptomatic. BP 134/80. Bedside exam remarkable for tachycardia, expiratory wheezes. Resting comfortably, feeling tired but otherwise without complaint. a/p: - EKG obtained - a flutter w/rate 144 - CXR obtained - mild improvement in volume overload compared to yesterday, otherwise unchanged - subsequently found to have approx 10 beats vtach on tele - will start diltiazem 20 mg slow IVP and start diltiazem drip at 5 mg/hr - continue to monitor vitals, tele - resumed lovenox 40mg SC daily - consider cardiology consult in AM B. Rehg, DO, PGY-1
[2020-09-10 05:11] LABS: #Monocytes 0.7 thou/uL (0.11-0.59); #Neutrophils 3.8 thou/uL (1.40-6.50); %Basophils 0.4 % (0.0-1.0); %Eosinophils 0.4 % (0.0-10.0); %Lymphocytes 17.6 % (21.0-51.0); %Monocytes 12.5 % (0.0-10.0); %Neutrophils 69.1 % (42.0-75.0); Hemoglobin 10.3 g/dL (14.0-18.0); Mean Corpuscular HGB CONC 30.2 g/dL (32.0-36.0); Mean Corpuscular Hemoglobin 27.3 pg (27.0-31.0); Mean Corpuscular Volume 90.5 fL (78.0-98.0); Mean Platelet Volume 6.6 fL (7.4-10.4); Platelet Count 207 thou/uL (130-400); RBC Distribution Width 16.2 % (11.5-14.5); Red Blood Cell (RBC) Count 3.78 mill/uL (4.70-6.10); White Blood Cell (WBC) Count 5.5 thou/uL (4.8-10.8)
[2020-09-10 05:14] LABS: ALT (SGPT) 145 U/L (8-55); AST (SGOT) 178 U/L (5-34); Albumin 3.2 g/dL (3.5-5.0); Alkaline Phosphatase 254 U/L (40-110); BUN (Urea Nitrogen) 11 mg/dL (8.9-20.6); Bilirubin, Total 1.1 mg/dL (0.2-1.2); Calc. Creatinine Clearance 302 mL/min (70-130); Calcium 9.1 mg/dL (7.8-10.44); Glucose 109 mg/dL (70-105); Magnesium 1.9 mg/dL (1.6-2.6); Protein, Total 7.2 g/dL (6.0-8.3)
[2020-09-10 05:22] LABS: Anion Gap 18 mmol/L (10-20); Carbon Dioxide 37 mmol/L (22-29); Chloride 84 mmol/L (98-107); Potassium 3.8 mmol/L (3.5-5.1); Sodium 135 mmol/L (136-145)
--- NOTE | 2020-09-10 05:46 | PDOC.FM ---
- Subjective Subjective: Patient is resting comfortably in bed. Has no acute concerns at this time. Per overnight team patient started satting in the 70s overnight, was not wearing his bipap while sleeping, bipap was put on and patient went back up into the 90s. About 20 min after that he went into afib/flutter with 10 beat vtach, he was given 1 dose 20 IVP dilt, and started on dilt drip at 5. Patient states that he did not have any shortness of breath or chest pain overnight stating that he was sleeping. - Objective MAR Reviewed: Yes Vital Signs & Weight: Vital Signs (12 hours) Temp Pulse Resp BP BP Pulse Ox 09/10/20 04:11 94 L 09/10/20 01:50 135 H 20 135/74 09/10/20 00:08 20 93 L 09/10/20 00:01 99 17 94 L 09/10/20 00:00 94 20 147/74 H 71 L 09/09/20 19:45 97.8 F 105 H 20 137/71 137/71 92 L 09/09/20 19:10 92 L 09/09/20 19:09 102 H 21 H 92 L Weight Weight 181.437 kg I&O: 09/08/20 09/09/20 09/10/20 06:59 06:59 06:59 Intake Total 1314 1220 1989 Output Total 2975 5152 1250 Balance -1661 -2680 -2910 Result Diagrams: 09/10/20 04:57 09/10/20 03:51 Phys Exam - Physical Examination Constitutional: NAD HEENT: PERRLA, moist MMs Respiratory: wheezing present (expiratory) Cardiovascular: RRR, no significant murmur Gastrointestinal: soft, non-tender, positive bowel sounds Musculoskeletal: pulses present, edema present Neurological: non-focal, moves all 4 limbs Psychiatric: normal affect, A&O x 3 Dx/Plan - Plan Plan: 50yo male with morbid obesity, COPD and CHF presents w/ increased swelling and SOB #Acute Hypoxic Respiratory Failure 2/2 COPD exac vs CHF exac -desat overnight, placed on bipap, also went into afib/flutter, given 20 IVP dilt and started on dilt drip at 5; EKG - aflutter, repeat CXR: vascular congestion, mild improvement -09/08 elevated DD --> CTA: no PE, loculation left lobe, atelectasis, congestion and edema -predinsone and duonebs jeb -BNP increased -continue IV lasix -I/O: -2.5L last 24 hours -needs cpap at night, will need outpt f/u to help set up -LO 04/2019 showed right side chamber enlargement -consulted Dr. Lorenzo due to worsening BNP, elevated LFTs, appreciate recs #Transaminitis -AST/ALT 178/145, worsening -likely due to congestion -also hx of EtOH abuse - d/w Dr. Lorenzo -continue to monitor #A flutter s/p ablation No hx of taking anticoagulation - started on lovenox for ppx - Afib/flutter overnight, with 10 beats vtach, patient asx -given 1 dose 20 IV dilt, drip started @5 -Dr. Lorenzo recs stopping dilt until he sees patient this morning, noting he will go there first -Monitor HR, currently HR 98bpm #Diarrhea -resolved #Hyponatremia -Na 132 -this seems to be a chronic issue -continue to monitor #UTI, asymptomatic -UA + for leuks, bacteria -pending UCx -received rocephin, no current abx #EtOH abuse -ASE protocol -on thiamine and librium taper #HFpEF -continue with home meds -lasix 40mg IV BID -echo: EF 55-60%, poor quality due to body habitus -monitor I/O, daily weights #Lymphedema - Chronic condition - Monitor skin for breakdown CODE: FULL VTE: Lovenox DIET: HH, fluid restrict PCP: JANNETH Garcia Dispo: admitted to tele. continue diuresing. LOS > 48hrs, awaiting HF Dr. Lorenzo recommendations. Addendum - Attending - Attending Attestation Date/Time: 09/10/20 1352 I personally evaluated the patient and discussed the management with Dr. Childs. I agree with the History, Examination, Assessment and Plan documented above with any addition or exceptions noted below. Liver enzymes are elevated. Pt went into a.fib overnight and converted with diltiazem bolus and drip. In sinus rhythm today. Pt is continuing diuresis. Consulting Dr. Lorenzo for the heart failure.
[2020-09-10] MEDS: Furosemide 40 MG/4 ML VIAL SLOW IVP SCH ×2 (06:30→13:32)
--- NOTE | 2020-09-10 08:51 | RAD ---
EXAM: Chest one view: HISTORY: Atrial fibrillation COMPARISON: 09/09/2020 FINDINGS: Heart size: Stable but enlarged. Lungs: Patchy interstitial and alveolar parenchymal changes throughout both lungs. Stable exam. IMPRESSION: Stable bilateral parenchymal changes.
[2020-09-10] MEDS: predniSONE 20 MG TAB PO SCH (09:32)
[2020-09-10] MEDS: Potassium Chloride 10 MEQ TAB PO SCH ×2 (09:33→17:57)
[2020-09-10] MEDS: Aspirin 81 mg Enteric Coated Tablet PO SCH (09:33)
[2020-09-10] MEDS: Cyanocobalamin (Vitamin B-12) 1,000 MCG TAB PO SCH (09:33)
[2020-09-10] MEDS: Multivitamin W/ Minerals 1 TAB PO SCH (09:33)
[2020-09-10] MEDS: Folic Acid 1 MG TAB PO SCH (09:34)
[2020-09-10] MEDS: Thiamine 100 MG TAB PO SCH (09:34)
[2020-09-10] MEDS ORDERED: Magnesium 2 GM/50 ML 2 GM in Premix Bag 1 BAG IVPB SCH (13:00)
[2020-09-10] MEDS ORDERED: Potassium Chloride 10 MEQ TAB PO SCH (13:00)
[2020-09-10] MEDS ORDERED: Spironolactone 25 MG TAB PO SCH (13:00)
[2020-09-10] MEDS ORDERED: AcetaZOLAMIDE 250 MG TAB PO SCH (13:00)
[2020-09-10] MEDS ORDERED: Sotalol HCl 80 MG TAB PO SCH ×2 (14:45→21:00)
[2020-09-10] MEDS ORDERED: Metoprolol Tartrate 5 MG/5 ML VIAL IVP PRN (14:47)
--- NOTE | 2020-09-10 17:53 | EKG ---
Test Reason : Blood Pressure : / mmHG Vent. Rate : 106 BPM Atrial Rate : 106 BPM P-R Int : 132 ms QRS Dur : 086 ms QT Int : 360 ms P-R-T Axes : 036 032 047 degrees QTc Int : 478 ms Sinus tachycardia Possible Left atrial enlargement Borderline ECG Confirmed by GABRIEL CORTEZ, ALYSA ([id number]), assignment desk editor FITZ DICKEY ([id number]) on 09/10/2020 5:53:25 PM Referred By: Confirmed By:ALYSA RIOS MD
[2020-09-10 19:14] LABS: BUN (Urea Nitrogen) 11 mg/dL (8.9-20.6); Calc. Creatinine Clearance 298 mL/min (70-130); Calcium 9.5 mg/dL (7.8-10.44); Glucose 125 mg/dL (70-105); Magnesium 1.9 mg/dL (1.6-2.6)
[2020-09-10 19:23] LABS: Anion Gap 20 mmol/L (10-20); Carbon Dioxide 35 mmol/L (22-29); Chloride 83 mmol/L (98-107); Potassium 3.8 mmol/L (3.5-5.1); Sodium 134 mmol/L (136-145)
[2020-09-11 04:54] LABS: Anion Gap 19 mmol/L (10-20); Carbon Dioxide 33 mmol/L (22-29); Chloride 86 mmol/L (98-107); Potassium 3.6 mmol/L (3.5-5.1); Sodium 134 mmol/L (136-145)
[2020-09-11 04:59] LABS: ALT (SGPT) 275 U/L (8-55); AST (SGOT) 322 U/L (5-34); Albumin 3.1 g/dL (3.5-5.0); Alkaline Phosphatase 400 U/L (40-110); BUN (Urea Nitrogen) 12 mg/dL (8.9-20.6); Bilirubin, Total 2.2 mg/dL (0.2-1.2); Calc. Creatinine Clearance 299 mL/min (70-130); Calcium 9.3 mg/dL (7.8-10.44); Glucose 112 mg/dL (70-105); Protein, Total 7.1 g/dL (6.0-8.3)
[2020-09-11] MEDS: Furosemide 40 MG/4 ML VIAL SLOW IVP SCH ×2 (05:45→14:21)
--- NOTE | 2020-09-11 06:11 | PDOC.FM ---
- Subjective Subjective: Patient is resting comfortably in bed. States he had one of his best nights of sleep last night. Denies chest pain, shortness of breath, abdominal pain, N/V. - Objective MAR Reviewed: Yes Vital Signs & Weight: Vital Signs (12 hours) Temp Pulse Resp BP BP Pulse Ox 09/11/20 04:15 97.1 F L 83 18 141/67 H 141/67 H 98 09/11/20 03:04 97 09/11/20 03:02 95 09/10/20 23:15 98.5 F 85 14 124/66 124/66 94 L 09/10/20 23:11 96 09/10/20 19:33 98.4 F 96 22 H 110/57 L 94 L 09/10/20 19:30 110/57 L 09/10/20 18:47 93 L 09/10/20 18:46 100 18 93 L Weight Weight 179.8 kg I&O: 09/09/20 09/10/20 09/11/20 06:59 06:59 06:59 Intake Total 1220 1990 1300 Output Total 3900 4900 7900 Balance -6008 -9023 -8854 Result Diagrams: 09/10/20 04:57 09/11/20 03:48 Phys Exam - Physical Examination Constitutional: NAD HEENT: PERRLA, moist MMs Respiratory: wheezing present expiratory wheeze Cardiovascular: RRR, no significant murmur Gastrointestinal: soft, non-tender, positive bowel sounds Musculoskeletal: edema present Neurological: non-focal, moves all 4 limbs Psychiatric: normal affect, A&O x 3 Skin: no rash Dx/Plan - Plan Plan: 50yo male with morbid obesity, COPD and CHF presents w/ increased swelling and SOB #Acute Hypoxic Respiratory Failure 2/2 COPD exac vs CHF exac -09/08 elevated DD --> CTA: no PE, loculation left lobe, atelectasis, congestion and edema -predinsone and duonebs jeb -BNP increased -continue IV lasix -I/O: -6.6L last 24 hours -needs cpap at night, will need outpt f/u to help set up -LO 04/2019 showed right side chamber enlargement -consulted Dr. Lorenzo due to worsening BNP, elevated LFTs, appreciate recs - stopped diltiazam, added metoprolol tartate prn hr >130, added spironolactone, acetazolamide, sotalol, gave Mag and K #Transaminitis -AST/ALT 322/275, alk phos 400, worsening -likely due to congestion -also hx of EtOH abuse - Dr. Lorenzo ordered RUQ abdominal US - consider consult GI pending results -continue to monitor #A flutter s/p ablation No hx of taking anticoagulation - lovenox for ppx -Dr. Lorenzo recs: added metoprolol tartrate prn hr >130, sotalol, monitor Mag/K closely -Monitor HR, NSR overnight #Diarrhea -resolved #Hyponatremia -Na 132 -this seems to be a chronic issue -continue to monitor #UTI, asymptomatic -UA + for leuks, bacteria -pending UCx -received rocephin, no current abx #EtOH abuse -ASE protocol -on thiamine #HFpEF -continue with home meds -lasix 40mg IV BID - Dr. Lorenzo consulted, appreciate recs, as above added added spironolactone, acetazolamide, sotalol -echo: EF 55-60%, poor quality due to body habitus -monitor I/O, daily weights #Lymphedema - Chronic condition - Monitor skin for breakdown CODE: FULL VTE: Lovenox DIET: HH, fluid restrict PCP: JANNETH Garcia Dispo:in tele. continue diuresing. LOS > 48hrs, appreciate HF Dr. Lorenzo higinio mmendations, consider GI consult Addendum - Attending - Attending Attestation Date/Time: 09/11/20 3942 I personally evaluated the patient and discussed the management with Dr. Childs. I agree with the History, Examination, Assessment and Plan documented above with any addition or exceptions noted below. The patient was feeling well this morning. Liver enzymes continue to rise. Pt has no tenderness on abdominal palpation. Abdominal ultrasound taken and results pending. Consulting GI to evaluate the elevated transaminases. Appreciate Dr. Lorenzo's recommendations. Pt went into a.fib/a.flutter this morning. Pt is being transferred to [facility] per Dr. Lorenzo and will be started on additional medications.
--- NOTE | 2020-09-11 07:49 | ULT ---
Sonogram abdomen complete HISTORY: Ascites. Cirrhosis. Abdomen pain. FINDINGS: Echogenic sludge and stones present within the gallbladder lumen. Mild gallbladder wall thi ckening is nonspecific in the setting of chronic liver disease. Patient was reportedly not tender over the gallbladder fossa at the time of the exam. Common duct is 0.6 cm. Liver is diffusely echogen ic without focal mass or intrahepatic biliary dilatation. No significant free fluid. The spleen is diffusely hypoechoic and measures up to 17.9 cm. The homogeneous decreased echogenicity is of uncertain origin, given that the spleen showed no abnormal density on recent CT. Portal vein is patent. Kidneys are unremarkable. Visualized portions of the IVC are within normal limits. The pancreas and a carolyn are mostly obscured. IMPRESSION : Cholelithiasis and biliary sludge. No evidence of acute biliary obstruction. Hepato-steatosis. Moderate to severe splenomegaly. Cause is not evident. (Portal venous hypertension versus infiltrativ e disease)
[2020-09-11] MEDS: Spironolactone 25 MG TAB PO SCH (08:16)
[2020-09-11] MEDS: predniSONE 20 MG TAB PO SCH (08:16)
[2020-09-11] MEDS: Potassium Chloride 10 MEQ TAB PO SCH ×2 (08:17→17:34)
[2020-09-11] MEDS ORDERED: Sotalol HCl 80 MG TAB PO SCH (09:00)
[2020-09-11] MEDS: Cyanocobalamin (Vitamin B-12) 1,000 MCG TAB PO SCH (09:12)
[2020-09-11] MEDS: Aspirin 81 mg Enteric Coated Tablet PO SCH (09:14)
[2020-09-11] MEDS: Thiamine 100 MG TAB PO SCH (09:15)
[2020-09-11] MEDS: AcetaZOLAMIDE 250 MG TAB PO SCH (09:15)
[2020-09-11] MEDS: Folic Acid 1 MG TAB PO SCH (09:15)
[2020-09-11] MEDS: Multivitamin W/ Minerals 1 TAB PO SCH (09:15)
[2020-09-11] MEDS ORDERED: Potassium Chloride 20 MEQ TAB PO SCH ×2 (09:30→09:31)
[2020-09-11] MEDS ORDERED: Magnesium 2 GM/50 ML 2 GM in Premix Bag 1 BAG IVPB SCH ×2 (09:33→19:30)
--- NOTE | 2020-09-11 11:10 | CON ---
DATE OF CONSULTATION: 09/10/2020 SERVICE: Advanced Heart Failure/Cardiology Consult Service. REASON FOR CONSULTATION: Management of heart failure with preserved ejection fraction with increasing liver enzymes. HISTORY OF PRESENT ILLNESS: Mr. Nikita Morgan, 50-year-old gentleman with heart failure with preserved ejection fraction and AFib, was admitted for increasing edema and heart failure exacerbation. Mr. Morgan has a long cardiac history. He did abuse alcohol. He is morbidly obese, at one time over 517 pounds. He did have atrial fibrillation with heart failure with preserved ejection fraction. Apparently, atrial fibrillation ablation took place on May 11, 2019. He has been in and out of the hospital for different reasons. Sometimes for alcohol abuse. Last hospitalization, he drank a significant amount of alcohol and caused liver dysfunction, renal dysfunction, he was hydrated and was sent home. He was told not to drink alcohol anymore. However, since arriving home, he has been drinking vodka about 2-3 vodkas per night. He said that he was doing fairly well on Lasix 40 mg daily until about 10 days ago. He then notices increasing lower extremity edema when the feet are not up, worse on the right than left. Then he began to have much more difficulty walking. Then on the day of admission, he tripped over his chair and fell down. He was not able to get back up, that is when he called 911 and brought in. Since being in the hospital, he has been successfully diuresed with combination of metolazone and also IV Lasix. However, despite a large urine output, his brain natriuretic peptide has been increasing, his liver enzymes also has been increasing. He felt more short of breath. Thus consult request was made. PAST MEDICAL HISTORY: Significant for, 1. Atrial flutter/atrial fibrillation was ablated in April 2019. 2. History of heart failure with preserved ejection fraction. 3. History of hypertension. 4. History of alcohol abuse. 5. History of COPD. 6. History of GI bleed. 7. History of lymphedema. This has been going on for 6 to 7 years. 8. Obesity. 9. Severe renal dysfunction required temporary dialysis at one time. SOCIAL HISTORY: 1. He has been smoking since age 14. His age is 50, so he has been smoking for 36 years. He attempted to quit several times, but his smokes and he has returned to cigarette smoking. 2. He admits to a large amount of alcohol use, sometimes up to 12 beers per day. However, he has reduced down to 2 vodkas per night now. 3. He denies any illicit drug use. 4. He has been disabled since 2019. He lives with his . They live in an , so consequently there is not much room. FAMILY HISTORY: 1. His father is alive age 73 with atrial fibrillation post ablation. 2. His mother is alive age 73 in good health. 3. He has 2 sisters, they are in good health. REVIEW OF SYSTEMS: GENERAL: Fatigued, edema with shortness of breath. HEENT: There is no change in his vision, hearing, or swallowing. PULMONARY: Please see HPI. CARDIAC: Please see HPI. GI: There is no nausea or vomiting; however, he states he is more constipated. : It is difficult to go, but he is on PureWick. MUSCULOSKELETAL: He has difficulty moving his legs because of huge amount of obesity, lymphedema, and also heart failure edema. INTEGUMENT: There is no report of new skin breakdown. NEUROLOGIC: There are no new focal deficits or weaknesses. CURRENT MEDICATIONS: Include, 1. Albuterol. 2. Ipratropium nebs q.4 hours. 3. Aspirin 81 mg daily. 4. Vitamin B12 500 mcg daily. 5. Enoxaparin 40 mg subcutaneous daily. 6. Folic acid 1 mg daily. 7. Furosemide 40 mg IV b.i.d. 8. Multivitamin 1 tablet daily. 9. Toprol-XL 25 mg daily. 10. Protonix 40 mg daily. 11. K-Dur 10 mEq daily. 12. Prednisone 40 mEq daily. 13. Thiamine at 100 mg p.o. daily. 14. He was on a diltiazem drip, it looks like 5 mg/hour. PHYSICAL EXAMINATION: Telemetry is reviewed. He is currently is in sinus tachycardia, rate about 110. He has bouts of atrial flutter/atrial fibrillation. This morning, there is a 10- beat wide complex tachycardia, this could be true ventricular tachycardia or it could be AFib with aberrancy is difficult to tell. CURRENT VITAL SIGNS: Heart rate 106, blood pressure 141/67. His breathing on 3 L with oxygen saturation about 94%. GENERAL: He is a very large, obese gentleman who is lying in bed with his legs propped up. He is visibly short of breath on nasal cannula oxygen. HEENT: Show EOMI. Oropharynx has poor dentition. Moist mucosa. NECK: His JVP is difficult to assess, but he has a large wide neck. However, his JVP apparently is about where his earlobe is. ABDOMEN: Very large, is distended, soft, nontender. Positive bowel sounds. LOWER EXTREMITIES: Extraordinary. He has external large upper legs with combination of pitting edema to about 1 cm and adipose tissue on his lower extremity from knee down. There is pitting edema. There is also lymphedema. LABORATORY DATA: White cell count 5.5, hemoglobin 10.3, and hematocrit 34, platelets 207. His chemistry shows sodium 135, potassium 3.8, chloride at 84, and bicarb of 37. His BUN is 11, his creatinine is 0.76. Echocardiogram from September 06, 2020, was reviewed. 1. His heart is mildly dilated. 2. His LVEF is about 55%. 3. His right ventricle is mildly dilated with mildly depressed function. There is a tricuspid regurgitation. 4. Overall has very poor quality echo, it is difficult to truly to ascertain. His other laboratory value shows that he has elevated AST at 178, elevated ALT at 145, and elevated alkaline phosphatase of 254. His BUN was normal, now it is up to 203. ASSESSMENT: 50-year-old gentleman resides in a very difficult situation. He has combination of atrial fibrillation/atrial flutter and heart failure with preserved ejection fraction. His extraordinary body habitus makes treatment quite difficult. Currently, it is likely diltiazem is causing the liver enzymes to rise. It does have the adverse reaction. Furthermore it can cause his congestion to worse. So please do not use diltiazem on this patient right now. Amiodarone can be used, however, he already had elevated liver enzymes, so consequently, then we will try to control his rhythm with sotalol. Sotalol can be used since his EF is 55%. Sotalol also has good effect of controlling potential ventricular tachycardia too. However, we would need to measure his QRS and also QT intervals every day for 3 days to ensure there is not severe prolonging of his QT and also QRS. He may not need inotropic therapy for right now. Currently, he has sufficient net output if that is documented correctly, it is documented that he had net 3900 out 2 days ago, and net 2900 out yesterday. So, current level of diuresis is sufficient. Please see the following for my recommendations. RECOMMENDATIONS: 1. Discontinue diltiazem. 2. Increase frequency of Toprol-XL to 25 mg p.o. q.12 hours. 3. Add spironolactone 25 mg p.o. daily, first dose today. We can increase this to 50 mg p.o. daily, this will help him. 4. Start sotalol 80 mg p.o. q.12 hours, first dose today after ECG has been done. 5. Magnesium sulfate 2 g IV one dose now. 6. K-Dur 10 mEq p.o. one dose now and increase the frequency of K-Dur to 10 mEq b.i.d. 7. Check daily EKG for 3 days. 8. Acetazolamide 250 mg p.o. daily, first dose now because he also has metabolic acidosis. It has been my pleasure taking care of Mr. Morgan, if you have any question please give me a call. The total time for this visit is 75 minutes. This includes personally performing history and physical, reading echocardiogram, reviewing telemetry, coordinating care with the medical staff. Job ID: [id number] [facility]OSPITALNick
--- NOTE | 2020-09-11 13:11 | SPC ---
Left upper extremity PICC placement sonographic guided HISTORY: Heart failure. FINDINGS: After explaining the procedure and answering all questions, left upper extremity was preppe d and draped in usual sterile fashion. Sterile technique, buffered local anesthesia, sonographic guidance, and a 22-gauge needle were used t o carefully access the left basilic vein. Standard technique was used to place the tip of a 5 [place] single lumen PICC so that the tip lies at the level of the superior vena cava. Catheter was flushed and secured externally. Patient tolerated the procedure well and was returned in unchanged condition. IMPRESSION : Left upper extremity PICC is ready for use.
--- NOTE | 2020-09-11 13:19 | PRG ---
DATE OF SERVICE: 09/11/2020 SUBJECTIVE: Metoprolol succinate 25 mg was increased to q.12 hours. Sotalol at 80 mg p.o. q.12 hours was initiated yesterday and with that combination, brought his rate under control. He was in sinus rhythm all day until this morning. He said he felt very good with that. He had about 7000 mL of urine output on combination of Lasix 40 mg IV b.i.d. and spironolactone. This was maximum amount, and because of that, he says he is breathing easier and generally feels much energetic and better. REVIEW OF SYSTEMS: GENERAL: There is no fever, chills, productive cough. HEENT: There is no change in vision, hearing, swallowing. PULMONARY: He is less short of breath. GI: There is no nausea, vomiting. He is eating well. : It is difficult, is incontinent. He actually has a PureWick in place, that is working. MUSCULOSKELETAL: There are no new complaints of muscle or joint pains. INTEGUMENT: There are no new reports of skin breakdown. NEUROLOGIC: There are no focal deficits or weaknesses. CURRENT MEDICATIONS: Includes 1. Albuterol and ipratropium nebs q.4 hours. 2. Aspirin 81 mg daily. 3. Enoxaparin 40 mg at bedtime. 4. Furosemide 40 mg IV b.i.d. 5. Metoprolol succinate 25 mg p.o. q.12 hours. 6. Metoprolol tartrate 5 mg IV q.8 hours p.r.n. for tachycardia with heart rate above 140. 7. Protonix 40 mg daily. 8. K-Dur at 10 mEq b.i.d. 9. Prednisone 40 mg daily. 10. Sotalol 80 mg q.12 hours. 11. Spironolactone at 25 mg daily. PHYSICAL EXAMINATION: Telemetry, reviewed, since last night until this morning, he is in sinus rhythm. GENERAL: He is alert and conversational, relaxing while eating breakfast, breathing easier, more energetic today than yesterday. VITAL SIGNS: His blood pressure is 145/69. HEENT: Show EOMI. Oropharynx benign. NECK: JVP is not well seen because he is laying flat and has a very large diameter neck. PULMONARY: He has crackles at the right lung mid to base. His air movement better on the left. CARDIAC: Regular rate and rhythm with normal S1, S2. There is 2/6 holosystolic murmur near at the apex. ABDOMEN: Very large, soft, nontender. Positive bowel sounds. There is no tenderness. EXTREMITIES: Lower extremities have very large amount of adipose tissue, and edema. There is pitting edema in his thighs. His lower extremity from knee on down his feet, there is combination of lymphedema edema and CHF edema. LABORATORY DATA: This morning are sodium 134, potassium 3.6, chloride 86, bicarb 33, BUN 12, creatinine 0.76. His magnesium slightly low at 1.9. However, on the second visit, apparently when he moves round and interacts with people, his heart rate will go up to 140s. It looks like atrial flutter or atrial fibrillation. When his rate went that high, a single dose of metoprolol IV brought it back down to sinus rhythm and then he will go in and out between a flutter and sinus rhythm. He also has increased liver in size. His total bilirubin 2.2, AST is 322, ALT is 275. ASSESSMENT: 50-year-old gentleman has difficult to treat pulmonary and cardiac conditions. He has right ventricular dysfunction and likely pulmonary hypertension. However, his left ventricular ejection fraction is low normal. He has atrial fibrillation and atrial flutter that is intermittent. He deteriorates into acute heart failure with AFIB/Aflutter. However, sotalol and toprol-xl combined is keeping it under control At this point, he has seemingly out of proportion rise in liver enzymes in light of his input and output from yesterday of 1300 mL in and 7900 out so it net negative 6.6 L. Thus, it will be good to consult GI to see if there are liver causes for this. He does have a good radial pulse. He does have a decent blood pressure. In the meantime, we will also add on milrinone to decrease pulmonary hypertension and increase right ventricular function, if this is right heart failure congestion. Please see the following for my recommendations. Due to his SVT, hypoxia, and hemodynamic instability, he was transferred to [facility] for higher level of care. RECOMMENDATIONS: 1. Give K-Dur 40 mEq now to bring potassium to 4 or higher to keep the arrhythmia at bay. 2. To give magnesium sulfate 2 g IV now. We will need to keep the magnesium at 2 or better. 3. Increase sotalol to 120 mg p.o. q.12 hours. This is a very large person. His EKG this morning has normal QRS and normal QT interval, so this dose will be safe. 4. If he goes fast again, I will ask for a loading dose of digoxin 0.25 mg, start digoxin tomorrow to keep it under control and in sinus rhythm. 5. I will also contact electrophysiology for relook at ablation since recurrent A-Flutter causes heart failure. 6. Start milrinone 0.125 mcg/kg per minute, wait for 2 hours. If his systolic blood pressure remains above 110, then increase to 0.25 mcg/kg per minute. If he has too much of recurrent supraventricular tachycardia, we will have to stop the milrinone. It has been a pleasure taking care of Mr. Morgan. If any questions, please give me a call. Critical care time is 50 minutes. This includes multiple visits, coordinating care, start/titrate milrinone drip, personally performing history and physical and counseling patient. Job ID: [id number] MTDD
[2020-09-11 18:15] LABS: Anion Gap 13 mmol/L (10-20); BUN (Urea Nitrogen) 17 mg/dL (8.9-20.6); Calc. Creatinine Clearance 291 mL/min (70-130); Calcium 9.4 mg/dL (7.8-10.44); Carbon Dioxide 36 mmol/L (22-29); Chloride 89 mmol/L (98-107); Glucose 133 mg/dL (70-105); Magnesium 1.8 mg/dL (1.6-2.6); Potassium 4.2 mmol/L (3.5-5.1); Sodium 134 mmol/L (136-145)
[2020-09-11] MEDS: Sotalol HCl 80 MG TAB PO SCH (20:51)
[2020-09-11] MEDS: Apixaban 2.5 MG TAB PO SCH (21:31)
[2020-09-12 03:34] LABS: #Eosinphils 0.1 thou/uL (0.0-0.7); #Lymphocytes 1.5 thou/uL (1.20-3.40); #Monocytes 1.1 thou/uL (0.11-0.59); #Neutrophils 5.3 thou/uL (1.40-6.50); %Basophils 0.2 % (0.0-1.0); %Eosinophils 0.8 % (0.0-10.0); %Lymphocytes 19.4 % (21.0-51.0); %Monocytes 13.6 % (0.0-10.0); Hemoglobin 10.3 g/dL (14.0-18.0); Mean Corpuscular HGB CONC 30.9 g/dL (32.0-36.0); Mean Corpuscular Hemoglobin 27.4 pg (27.0-31.0); Mean Corpuscular Volume 88.7 fL (78.0-98.0); Mean Platelet Volume 7.2 fL (7.4-10.4); Platelet Count 243 thou/uL (130-400); RBC Distribution Width 15.9 % (11.5-14.5); Red Blood Cell (RBC) Count 3.75 mill/uL (4.70-6.10)
[2020-09-12 04:01] LABS: ALT (SGPT) 202 U/L (8-55); AST (SGOT) 173 U/L (5-34); Albumin 2.9 g/dL (3.5-5.0); Alkaline Phosphatase 334 U/L (40-110); BUN (Urea Nitrogen) 19 mg/dL (8.9-20.6); Bilirubin, Total 1.3 mg/dL (0.2-1.2); Calc. Creatinine Clearance 261 mL/min (70-130); Calcium 9.1 mg/dL (7.8-10.44); Globulin 3.7 g/dL (2.4-3.5); Glucose 109 mg/dL (70-105); Magnesium 2.2 mg/dL (1.6-2.6); Protein, Total 6.6 g/dL (6.0-8.3)
[2020-09-12 04:11] LABS: Anion Gap 16 mmol/L (10-20); Carbon Dioxide 33 mmol/L (22-29); Chloride 89 mmol/L (98-107); Potassium 3.6 mmol/L (3.5-5.1); Sodium 134 mmol/L (136-145)
--- NOTE | 2020-09-12 05:59 | PDOC.FM ---
- Subjective Subjective: Pt was doing very well this morning. He was able to raise both legs into the air, roll over on his own and did not have any SOB. He says he feels much better. Has been having some mild constipation. Has a desire to work with PT/OT. - Objective Vital Signs & Weight: Vital Signs (12 hours) Temp Pulse Resp Pulse Ox 09/12/20 03:57 97.5 F L 09/12/20 02:15 82 16 96 09/12/20 00:23 96 09/11/20 23:29 97.9 F 09/11/20 22:22 92 18 94 L 09/11/20 20:51 92 09/11/20 20:00 95 09/11/20 19:16 97.7 F 09/11/20 18:59 92 20 97 Weight Weight 179.8 kg Most Recent Monitor Data Heart Rate from ECG 85 NIBP 115/66 NIBP BP-Mean 82 Respiration from ECG 24 SpO2 95 I&O: 09/10/20 09/11/20 09/12/20 06:59 06:59 06:59 Intake Total 1989 1299 720 Output Total 4900 7900 2750 Balance -2910 -6600 -2030 Result Diagrams: 09/12/20 03:07 09/12/20 03:07 Phys Exam - Physical Examination Constitutional: NAD Neck: supple Respiratory: no wheezing, clear to auscultation bilateral Cardiovascular: RRR, no significant murmur Gastrointestinal: soft, non-tender, no distention Musculoskeletal: edema present edema significantly improved Neurological: non-focal Psychiatric: A&O x 3 Dx/Plan (1) Acute and chronic respiratory failure with hypoxia Code(s): J96.21 - ACUTE AND CHRONIC RESPIRATORY FAILURE WITH HYPOXIA Status: Acute (2) Alcohol abuse Code(s): F10.10 - ALCOHOL ABUSE, UNCOMPLICATED Status: Chronic (3) HTN (hypertension) Code(s): I10 - ESSENTIAL (PRIMARY) HYPERTENSION Status: Chronic Qualifiers: (4) Lymphedema of both lower extremities Code(s): I89.0 - LYMPHEDEMA, NOT ELSEWHERE CLASSIFIED Status: Chronic (5) Transaminitis Code(s): R74.0 - NONSPEC ELEV OF LEVELS OF TRANSAMNS & LACTIC * DO NOT USE * Status: Chronic (6) Morbid obesity with BMI of 70 and over, adult Code(s): E66.01 - MORBID (SEVERE) OBESITY DUE TO EXCESS CALORIES; Z68.45 - BODY MASS INDEX [BMI] 70 OR GREATER, ADULT Status: Acute - Plan Plan: 50yo male with morbid obesity, COPD and CHF presents w/ increased swelling and SOB #Acute Hypoxic Respiratory Failure 2/2 COPD exac vs CHF exac -CTA: no PE, loculation left lobe, atelectasis, congestion and edema -predinsone and duonebs jeb -continue IV lasix -I/O: -2.7L last 24 hours -needs cpap at night, will need outpt f/u to help set up -LO 04/2019 showed right side chamber enlargement -consulted Dr. Lorenzo: stopped diltiazam, metoprolol tartate prn hr >130, spironolactone, acetazolamide, sotalol, metoprolol succinate, milrinone gtt #Transaminitis -AST/ALT 173/202, improving -likely due to congestion -also hx of EtOH abuse - RUQ abdominal US: hepatosteatosis, splenomegaly, biliary sludge, cholelithiasis -continue to monitor #A flutter s/p ablation - had been on warfarin in past and had GI bleed - lovenox for ppx - Dr. Lorenzo recs as above - consider consulting EP - Monitor HR #Diarrhea -resolved #Hyponatremia -Na 134 -this seems to be a chronic issue -continue to monitor #UTI, asymptomatic -UA + for leuks, bacteria -pending UCx -received rocephin, no current abx #EtOH abuse -ASE protocol -on thiamine #HFpEF -continue with home meds -lasix 40mg IV BID - Dr. Lorenzo consulted, appreciate recs, as above -echo: EF 55-60%, poor quality due to body habitus -monitor I/O, daily weights #Lymphedema - Chronic condition - Monitor skin for breakdown CODE: FULL VTE: Lovenox DIET: HH, fluid restrict PCP: JANNETH Garcia Dispo:in tele. continue diuresing. appreciate HF Dr. Lorenzo recommendations, consider EP consult Addendum - Attending - Attending Attestation Date/Time: 09/12/201938 I personally evaluated the patient and discussed the management with Dr. Barragan. I agree with the History, Examination, Assessment and Plan documented above with any addition or exceptions noted below. The patient is feeling better. His liver enzymes are improving. Pt continues on milrinone drip.
[2020-09-12] MEDS: Furosemide 40 MG/4 ML VIAL SLOW IVP SCH ×2 (06:08→14:57)
--- NOTE | 2020-09-12 06:15 | CON ---
DATE OF CONSULTATION: 09/11/2020 REASON FOR CONSULTATION: Abnormal LFTs with increasing AST and ALT on admission. HISTORY OF PRESENT ILLNESS: Mr. Nikita Morgan is a very obese male with history of alcohol hepatitis from before. The patient has history of diastolic heart failure, COPD, morbid obesity, etc. The patient had been seen by Dr. Fabricio Rebolledo in the past and also by Dr. Lit Ji in the past. Apparently, the patient was seen here in 2019 with alcoholic hepatitis . Patient hospitalized because of dyspnea, dizziness, and edema in legs. The patient was diuresed since admission. On admission, his liver function tests were slightly elevated, on 09/08; the bilirubin level was 1.3, AST 114, ALT 48, and alkaline phosphatase 277. sodium going up. Yesterday, AST was 178, ALT 145, and alkaline phosphatase 254. Today; the bilirubin is 2.2, AST is 322, ALT 275, and alkaline phosphatase 400. The patient states he has no GI symptoms. Denies abdominal pain, nausea, or vomiting. He has good appetite and he is eating well. The patient diuresed since admission and BNP today has come down to 178.1. The abdominal sonogram was done because the LFTs going up showed basically splenomegaly, fatty liver, gallstones. He also has enlarged spleen mostly from chronic liver disease. The patient had no symptoms except for the abnormal LFTs. ALLERGIES: WARFARIN. MEDICAL ILLNESSES: 1. Congestive heart failure with diastolic dysfunction. 2. Morbid obesity. 3. Obstructive sleep apnea. 4. COPD. 5. Hypertension. 6. Chronic alcohol abuse. 7. Atrial fibrillation status post ablation. 8. Appendectomy. 9. History of ankle surgery. SOCIAL HISTORY: The patient is a chronic smoker. Also, he has COPD, he continues to smoke a pack and half cigarettes per day. He has cut down his drinking to 2 drinks every day. Before, he was drinking heavy alcohol intake. Over the last several months, he drinks alcohol, but still not a lot. FAMILY HISTORY: No liver disease, any cancer, any cardiac disease, or lung disease. MEDICATION LIST: Reviewed. He is on; 1. Diamox. 2. Neb treatment. 3. Eliquis. 4. Aspirin. 5. Vitamin B12. 6. Folic acid. 7. Furosemide. 8. Metoprolol. 9. Zoloft. 10. Potassium. 11. Prednisone. 12. Sotalol. 13. Aldactone. 14. Lovenox. SYSTEM REVIEW: ABDOMEN: Actually unremarkable. No abdominal pain. No nausea or vomiting. He has good appetite. CVS: No chest pain. No dyspnea at the present time. No orthopnea or PND. RESPIRATORY SYSTEM: History of COPD, history of some wheezing off and on, and chronic coughing. PHYSICAL EXAMINATION: GENERAL: He is morbidly obese, appears comfortable. VITAL SIGNS: Actually stable. Afebrile, pulse is 88, and blood pressure 133/62. HEENT: Conjunctivae are clear. NECK: Supple. CARDIOVASCULAR SYSTEM: Normal heart sounds. LUNGS: He has mild wheezing, rhonchi. ABDOMEN: Slightly pendulous. Abdomen is soft. Abdomen is nontender. No organomegaly. No masses. Bowel sounds normal. EXTREMITIES: Chronic lymphedema. LABORATORY DATA: Today; bilirubin 2.2, AST 322, ALT 275, alkaline phosphatase 400, and albumin 3.1. Lytes are normal. BUN is 12. CBC; WBC 5500, hemoglobin 10.3, hematocrit 34.2, platelet count 207,000, polymorphs 69, lymphocytes 17, and monocytes 12. CLINICAL IMPRESSION: 1. A 50-year-old morbidly obese male with chronic heart failure, COPD, presents with symptoms of heart failure. He has been diuresed. He is feeling better. Interestingly liver function tests are going up. His heart failure is coming down. The patient is not any new medications to cause his LFTs to go up. From increasing LFTs, the patient has really no specific GI syndrome. The patient had seen Dr. Fabricio Rebolledo in the past and he has had extensive workup done including hepatitis markers, ceruloplasmin, and all other workup for liver disease. 2. Congestive heart failure. 3. Chronic obstructive pulmonary disease. 4. Sleep apnea. 5. Morbid obesity. 6. Previous appendectomy. RECOMMENDATION: As he is asymptomatic, I would probably recommend follow the LFTs periodically. There is no mention of any portal vein thrombosis on sonogram. I will continue the present medications what he is taking, I will probably repeat LFTs tomorrow or later. Dr. Rebolledo had seen the patient before, I will ask Dr. Rebolledo to see him from tomorrow. Job ID: [id number]
[2020-09-12] MEDS ORDERED: Potassium Chloride 20 MEQ TAB PO SCH (08:30)
--- NOTE | 2020-09-12 08:43 | ULT ---
Hepatic sonogram with duplex evaluation HISTORY: Elevated liver function tests. FINDINGS: Echogenic sludge within the dependent portion of the gallbladder lumen not as well document ed as on recent abdominal sonogram. Common duct is 0.6 cm diameter on today's exam. Liver is diffusely echogenic without focal mass or intrahepatic biliary dilatation. No free fluid. Spleen measures up to 16.5 cm on today's exam. Good color and spectral Doppler flow within the hepatic and splenic arteries. Portal venous flow is t owards the liver. Hepatic veins are patent. IMPRESSION : Hepato-steatosis. Moderate splenomegaly may reflect portal venous hypertension. Appropriate direction al portal venous flow. Biliary sludge within the gallbladder is evidence of chronic gallbladder dyskinesis. No evidence of a cute biliary obstruction.
[2020-09-12] MEDS: Polyethylene Glycol 3350 17 GM Packet PO SCH (09:17)
[2020-09-12] MEDS: Cyanocobalamin (Vitamin B-12) 1,000 MCG TAB PO SCH (09:18)
[2020-09-12] MEDS: AcetaZOLAMIDE 250 MG TAB PO SCH (09:21)
[2020-09-12] MEDS: predniSONE 20 MG TAB PO SCH (09:21)
[2020-09-12] MEDS: Aspirin 81 mg Enteric Coated Tablet PO SCH (09:21)
[2020-09-12] MEDS: Folic Acid 1 MG TAB PO SCH (09:22)
[2020-09-12] MEDS: Multivitamin W/ Minerals 1 TAB PO SCH (09:22)
[2020-09-12] MEDS: Potassium Chloride 10 MEQ TAB PO SCH ×2 (09:22→18:16)
[2020-09-12] MEDS: Apixaban 2.5 MG TAB PO SCH ×2 (09:22→20:31)
[2020-09-12] MEDS: Thiamine 100 MG TAB PO SCH (09:22)
[2020-09-12] MEDS: Sotalol HCl 80 MG TAB PO SCH ×2 (09:24→20:30)
--- NOTE | 2020-09-12 10:37 | PRG ---
DATE OF SERVICE: 09/12/2020 SUBJECTIVE: Mr. Morgan says he is breathing a lot better. He is not having any abdominal pain or nausea. He is tolerating his diet well. He has no other complaints for me. OBJECTIVE: VITAL SIGNS: Temperature 97.8, blood pressure 107/56, heart rate 98, 93% oxygen saturation on 4 L by nasal cannula. GENERAL: Obese, chronically ill, lying in bed comfortably, in no distress. Mental, alert and fully oriented. HEART: Regular rate and rhythm. LUNGS: Distant breath sounds. No wheezing. No respiratory distress. ABDOMEN: Obese. Bowel sounds present. Soft, nontender to palpation. EXTREMITIES: 1+ bilateral lower extremity edema. LABORATORY STUDIES: WBC 8.0, hemoglobin 10.3, platelets 243. Sodium 134, potassium 3.6, BUN 19, creatinine 0.87, glucose 109. Total bilirubin down to 1.3, alkaline phosphatase down to 334, AST down to 173, ALT down to 202. BNP is 178.1. Albumin 2.9. COVID PCR negative. IMAGING STUDIES: Abdominal ultrasound with duplex reviewed. This demonstrates some biliary sludge, but no evidence of acute biliary obstruction. Common bile duct is only 6 mm. Diffuse echogenicity of the liver. Moderate splenomegaly to 16.5 cm. Good color and Doppler flow within the portal and hepatic veins, hepatic and splenic arteries. ASSESSMENT AND PLAN: Alcoholic liver disease. The patient is still having 2 alcoholic beverages per day. Note that he had a more severe presentation with acute alcoholic hepatitis back in May/June of this year, but this really seems to have resolved with a course of prednisolone. I had a long discussion with the patient that he really needs to stop drinking alcohol completely or he may not be so david next time. That being said, I do think his acute alcoholic hepatitis has resolved, and what we are seeing now is likely secondary to underlying chronic alcoholic liver disease as well as possible contribution from his diastolic dysfunction. Liver tests are stable today. No further liver workup planned at this time. Continue with cardiopulmonary supportive care as you are doing. We would have the patient on a low-sodium diet. With regard to steroids, these are not needed for his liver disease at this time, I understand he is being treated for COPD exacerbation. GI will sign off at this time, but please feel free to call back anytime if questions or concerns. Job ID: [id number]
[2020-09-12] MEDS: Spironolactone 25 MG TAB PO SCH (11:30)
[2020-09-13 05:08] LABS: ALT (SGPT) 186 U/L (8-55); AST (SGOT) 134 U/L (5-34); Albumin 2.9 g/dL (3.5-5.0); Alkaline Phosphatase 325 U/L (40-110); Anion Gap 12 mmol/L (10-20); BUN (Urea Nitrogen) 21 mg/dL (8.9-20.6); Bilirubin, Total 0.9 mg/dL (0.2-1.2); Calc. Creatinine Clearance 270 mL/min (70-130); Calcium 8.9 mg/dL (7.8-10.44); Carbon Dioxide 35 mmol/L (22-29); Chloride 95 mmol/L (98-107); Globulin 3.6 g/dL (2.4-3.5); Glucose 109 mg/dL (70-105); Potassium 3.8 mmol/L (3.5-5.1); Protein, Total 6.5 g/dL (6.0-8.3); Sodium 138 mmol/L (136-145)
[2020-09-13] MEDS ORDERED: Potassium Chloride 20 MEQ TAB PO SCH ×2 (05:45→10:00)
--- NOTE | 2020-09-13 05:46 | PDOC.FM ---
- Subjective Subjective: Pt doing well this morning. Feels the CPAP is helping him sleep at night. Breathing is back to baseline. Says he was able to partially work with PT yesterday but they couldn't figure out how to lower the bed so he wasn't able to walk. He looks forward to working with them today. - Objective Vital Signs & Weight: Vital Signs (12 hours) Temp Pulse Resp BP Pulse Ox 09/13/20 04:00 97.1 F L 09/13/20 02:51 76 17 92 L 09/13/20 00:00 97.1 F L 09/12/20 22:06 86 16 97 09/12/20 20:30 91 125/59 L 09/12/20 20:00 125/50 L 94 L 09/12/20 19:15 97.8 F 09/12/20 18:38 91 16 95 Weight Weight 175.495 kg Most Recent Monitor Data Heart Rate from ECG 76 NIBP 115/63 NIBP BP-Mean 80 Respiration from ECG 27 SpO2 97 I&O: 09/11/20 09/12/20 09/13/20 06:59 06:59 06:59 Intake Total 1300 1330 1300 Output Total 7900 4050 2850 Balance -8096 -1604 -7190 Result Diagrams: 09/12/20 03:07 09/13/20 04:30 Phys Exam - Physical Examination Constitutional: NAD Neck: supple Respiratory: no wheezing, clear to auscultation bilateral Cardiovascular: RRR, no significant murmur Gastrointestinal: soft, non-tender, no distention Musculoskeletal: edema present Neurological: non-focal Psychiatric: A&O x 3 Dx/Plan (1) Acute and chronic respiratory failure with hypoxia Code(s): J96.21 - ACUTE AND CHRONIC RESPIRATORY FAILURE WITH HYPOXIA Status: Acute (2) Alcohol abuse Code(s): F10.10 - ALCOHOL ABUSE, UNCOMPLICATED Status: Chronic (3) HTN (hypertension) Code(s): I10 - ESSENTIAL (PRIMARY) HYPERTENSION Status: Chronic Qualifiers: (4) Lymphedema of both lower extremities Code(s): I89.0 - LYMPHEDEMA, NOT ELSEWHERE CLASSIFIED Status: Chronic (5) Transaminitis Code(s): R74.0 - NONSPEC ELEV OF LEVELS OF TRANSAMNS & LACTIC * DO NOT USE * Status: Chronic (6) Morbid obesity with BMI of 70 and over, adult Code(s): E66.01 - MORBID (SEVERE) OBESITY DUE TO EXCESS CALORIES; Z68.45 - BODY MASS INDEX [BMI] 70 OR GREATER, ADULT Status: Acute - Plan Plan: 50yo male with morbid obesity, COPD and CHF presents w/ increased swelling and SOB #Acute Hypoxic Respiratory Failure 2/2 COPD exac vs CHF exac -predinsone and duonebs jeb -continue IV lasix -I/O: -1.5L last 24 hours -needs cpap at night, will need outpt f/u to help set up -[place] 04/2019 showed right side chamber enlargement -consulted Dr. Lorenzo:milrinone gtt until LFT's back to baseline #Transaminitis -AST/ALT 134/186, improving -likely due to congestion -also hx of EtOH abuse - RUQ abdominal US: hepatosteatosis, splenomegaly, biliary sludge, cholelithiasis - GI consulted: due to alcoholic hepatitis and right heart failure, now trending down, no intervention needed #A flutter s/p ablation - had been on warfarin in past and had GI bleed - lovenox for ppx - Dr. Lorenzo recs as above - consulted Dr Francisco: continue oral antiarrhythmic, oral anticoagulation, will need to lose weight to be candidate for ablation in future - replace K and Mg as needed #Diarrhea -resolved #Hyponatremia -Na 138 -this seems to be a chronic issue -continue to monitor #UTI, asymptomatic -UA + for leuks, bacteria -UCx: no growth -received rocephin #EtOH abuse -ASE protocol -on thiamine #HFpEF -continue with home meds -lasix 40mg IV BID - Dr. Lorenzo consulted, appreciate recs, as above -echo: EF 55-60%, poor quality due to body habitus -monitor I/O, daily weights #Lymphedema - Chronic condition - Monitor skin for breakdown CODE: FULL VTE: Lovenox DIET: HH, fluid restrict PCP: JANNETH Garcia Dispo:in tele. continue diuresing. appreciate HF Dr. Lorenzo recommendations, EP consulted, will transfer out of [facility] when off milrinone Addendum - Attending - Attending Attestation Date/Time: 09/13/201926 I personally evaluated the patient and discussed the management with Dr. Barragan. I agree with the History, Examination, Assessment and Plan documented above with any addition or exceptions noted below. LFT's downtrending. Will continue milrinone. Patient is responding to sotalol. Continue PT. Will continue diuresis.
[2020-09-13] MEDS: Furosemide 40 MG/4 ML VIAL SLOW IVP SCH ×2 (06:30→16:12)
--- NOTE | 2020-09-13 06:48 | CON ---
DATE OF CONSULTATION: 09/12/2020 Dictated by Arely Romero, nurse practitioner, as a scribe for Dr. Star Francisco. REASON FOR CONSULTATION: Atrial arrhythmia management. HISTORY OF PRESENT ILLNESS: Mr. Morgan is a 50-year-old gentleman with a history of atrial flutter with prior CTI flutter ablation. He presented to the hospital with increasing edema and congestive heart failure symptoms. PROBLEM LIST: 1. Typical atrial flutter status post cavotricuspid isthmus flutter ablation in 04/2019. 2. Preserved left ventricular ejection fraction by echo on 02/10/2019. 3. Morbid obesity. 4. Chronic obstructive pulmonary disease. 5. Chronic lymphedema of bilateral lower extremities. 6. Diastolic heart failure exacerbation versus pneumonia. 7. History of alcohol abuse. 8. History of gastrointestinal bleed. 9. History of severe renal dysfunction, previously on dialysis transiently. SUBJECTIVE: Mr. Morgan came in with progressive shortness of breath and diastolic heart failure exacerbation versus rule out COVID pneumonia. He is morbidly obese and also struggles with excessive alcohol consumption. He noticed that his lower extremities were retaining fluid and was beginning to have falls at home. He was unable to get up and called 911 and was then brought in. He has been diuresed with Lasix and metolazone and has been seen to have new onset of atrial fibrillation with RVR. Initially, he was rate controlled with diltiazem, but LFTs began to rise and there was concern about a possible medication reaction from the diltiazem, causing congestive symptoms. Diltiazem was stopped and he was placed on sotalol for rhythm suppression as he had also been seen to have some nonsustained wide-complex tachycardic runs. EP consultation has been requested for arrhythmia management and possible ablation. REVIEW OF SYSTEMS: A 12-point review of systems positive for shortness of breath, fatigue, lower extremity swelling, progressive dyspnea. Negative for heart racing, palpitations, chest pain, syncope, or near syncope. Positive for falls. Otherwise, 12-point review of systems unremarkable. PAST MEDICAL HISTORY: As above. SOCIAL HISTORY: Positive for tobacco use. Positive for alcohol, sometimes up to 12 beers a day. Denies illicit drug use. Lives with his . FAMILY HISTORY: Negative for sudden cardiac . Positive for atrial fibrillation. ALLERGIES: ADVERSE REACTION TO WARFARIN IN THE PAST. HOME MEDICATIONS: 1. Multivitamin. 2. Folic acid. 3. Tylenol. 4. Klor-Con. 5. Calcium. 6. Thiamine. 7. PHOS-NaK. 8. Protonix. 9. Toprol-XL 25 mg daily. 10. Furosemide 40 mg daily. 11. Cyanocobalamin. 12. Aspirin. OBJECTIVE: GROWTH PARAMETERS: Height 5 feet 2 inches, weight 386 pounds, and BMI is 71. VITAL SIGNS: Temperature 98.1, pulse 94, blood pressure 99/84, respirations 17, and oxygen 91% on nasal cannula. GENERAL: The patient is alert and oriented. Speech is clear. His affect is appropriate. He is resting nearly recumbent in bed, in no apparent distress. He is morbidly obese. HEENT: Normocephalic and atraumatic. Sclerae anicteric. EOMs are intact. Oral mucosa is moist and pink with poor dentition. NECK: Obese. Trachea is midline. JVD would be difficult to assess due to habitus. CARDIAC: Heart rate is regular with distant heart tones due to habitus. RESPIRATORY: Lung sounds are distant, possibly bibasilar crackles. No wheezes heard. GASTROINTESTINAL: Abdomen is obese, soft, and nontender. Positive bowel sounds are noted throughout. EXTREMITIES: Large with some pitting edema noted in addition to his lymphedema. NEUROLOGIC: Grossly intact and nonfocal. Gait was not assessed. LABORATORY DATA: WBC 8, hemoglobin 10.3, hematocrit 33, and platelet count 243. D-dimer 0.94. Chemistry: Potassium 3.6, creatinine 0.87, magnesium 2.2, AST 173, ALT 202, and alkaline phosphatase 334. BNP initially 84, currently 102. Echocardiogram on 09/06/2020: EF 55% to 60%. Technically difficult due to habitus. Left atrial dimension 4.55 cm. Telemetry and EKG initially shows sinus rhythm with episodes of atrial fibrillation and RVR, eventually somewhat organized into an atypical atrial flutter, but with persisting RVR. There is a wide-complex tachycardia run, possibly nonsustained ventricular tachycardia versus atrial fibrillation with aberrancy. He is now in sinus rhythm with the QTc measuring 459 milliseconds on sotalol. IMPRESSION: 1. Paroxysmal atrial fibrillation/atypical atrial flutter with rapid ventricular response, responsive to sotalol. 2. Diastolic congestive heart failure, left ventricular ejection fraction 55%. 3. Hypokalemia and mild hypomagnesemia at 1.9. 4. Morbid obesity. 5. Chronic lymphedema. 6. Transaminitis. PLAN AND RECOMMENDATIONS: Mr. Morgan is a 50-year-old male who struggles with morbid obesity. He was previously seen to have typical atrial flutter and had undergone CTI flutter line ablation in 2019. At that point, he was not inducible for left atrial arrhythmias. Now in the setting of acute diastolic congestive heart failure, he is seen to have atrial fibrillation, sometimes organizing into atypical atrial flutter. He was started on sotalol for arrhythmia suppression, which has worked well stabilizing his arrhythmias. So far, his QT and QRS are tolerating this well with recent QTc measuring 459 milliseconds. I had a discussion with Mr. Morgan regarding long-term treatment options including continued antiarrhythmic therapy versus a possible option of ablation in the future. For this to occur or have an improved chance of success, he needs to lose a significant amount of weight. Currently, his BMI is 71. At this point, antiarrhythmic therapy is best option. Given this new discovery of left atrial arrhythmias, oral anticoagulation will be indicated long-term unless there is contraindication to this therapy. We will continue with serial EKGs 2 to 3 hours after every dose of sotalol for the first 6 doses. For now, EKG is stable and may continue sotalol 120 mg p.o. b.i.d. Thank you for allowing me to participate in the care of this patient. Job ID: [id number]
[2020-09-13] MEDS ORDERED: Magnesium 2 GM/50 ML 2 GM in Premix Bag 1 BAG IVPB SCH (08:15)
[2020-09-13] MEDS: Multivitamin W/ Minerals 1 TAB PO SCH (08:44)
[2020-09-13] MEDS: Cyanocobalamin (Vitamin B-12) 1,000 MCG TAB PO SCH (08:44)
[2020-09-13] MEDS: Folic Acid 1 MG TAB PO SCH (08:44)
[2020-09-13] MEDS: AcetaZOLAMIDE 250 MG TAB PO SCH (08:45)
[2020-09-13] MEDS: Aspirin 81 mg Enteric Coated Tablet PO SCH (08:45)
[2020-09-13] MEDS: Spironolactone 25 MG TAB PO SCH (08:45)
[2020-09-13] MEDS: Sotalol HCl 80 MG TAB PO SCH ×2 (08:45→21:36)
[2020-09-13] MEDS: predniSONE 20 MG TAB PO SCH (08:45)
[2020-09-13] MEDS: Potassium Chloride 10 MEQ TAB PO SCH ×2 (08:46→16:12)
[2020-09-13] MEDS: Polyethylene Glycol 3350 17 GM Packet PO SCH ×2 (08:46→09:01)
[2020-09-13] MEDS: Apixaban 5 MG TAB PO SCH ×2 (09:01→21:36)
[2020-09-13] MEDS: Thiamine 100 MG TAB PO SCH (09:01)
--- NOTE | 2020-09-13 09:23 | PDOC.EP ---
- Subjective Date: 09/13/20 Time: 09:17 Interval History: No major events overnight. He is breathing easier. No heart racing, palpitations, chest discomfort, dizziness, or passing out. - Review of Systems Constitutional: reports: weakness Respiratory: reports: shortness of breath. denies: cough, dry, hemoptysis Cardiology: reports: swelling. denies: chest pain, heart racing, light headedness, palpitations Gastrointestinal: denies: abdominal pain, constipation, diarrhea - Objective Allergies/Adverse Reactions: Allergies Allergy/AdvReac Type Severity Reaction Status Date / Time warfarin Allergy Rash Verified 09/07/20 06:16 Current Medications Acetazolamide (Acetazolamide 250 Mg Tab) 250 mg PO DAILY [facility] Last Admin: 09/13/20 08:45 Dose: 250 mg Documented by: Albuterol/Ipratropium (Ipratropium/Albuterol Sulfate 3 Ml Neb) 3 ml NEB [id number] [facility] Last Admin: 09/13/20 07:12 Dose: 3 ml Documented by: Albuterol/Ipratropium (Ipratropium/Albuterol Sulfate 3 Ml Neb) 3 ml NEB [id number] PRN PRN Reason: SOB &/or Wheezing Apixaban (Apixaban 5 Mg Tab) 5 mg PO BID [facility] Last Admin: 09/13/20 09:01 Dose: 5 mg Documented by: Aspirin (Aspirin 81 Mg Enteric Coated Tablet) 81 mg PO DAILY [facility] Last Admin: 09/13/20 08:45 Dose: 81 mg Documented by: Cyanocobalamin (Cyanocobalamin (Vitamin B-12) 1,000 Mcg Tab) 2,500 mcg PO DAILY [facility] Last Admin: 09/13/20 08:44 Dose: 2,500 mcg Documented by: Folic Acid (Folic Acid 1 Mg Tab) 1 mg PO DAILY [facility] Last Admin: 09/13/20 08:44 Dose: 1 mg Documented by: Furosemide (Furosemide 40 Mg/4 Ml Vial) 40 mg SLOW IVP 0600,1400 [facility] Last Admin: 09/13/20 06:30 Dose: 40 mg Documented by: Milrinone Lactate/Dextrose (Milrinone Lactate/D5w) 100 mls @ 6.743 mls/hr IVPB INF [facility] Last Admin: 09/13/20 08:53 Dose: 100 mls Documented by: Magnesium Sulfate 2 gm/ Device 50 mls @ 50 mls/hr IVPB NOW [facility] Stop: 09/13/20 11:00 Last Admin: 09/13/20 08:47 Dose: 50 mls Documented by: Iron/Minerals/Multivitamins (Multivitamin W/ Minerals 1 Tab) 1 tab PO DAILY [facility] Last Admin: 09/13/20 08:44 Dose: 1 tab Documented by: Metoprolol Succinate (Metoprolol Succinate Xl 25 Mg Tab) 25 mg PO Q12HR [facility] Last Admin: 09/13/20 08:47 Dose: 25 mg Documented by: Metoprolol Tartrate (Metoprolol Tartrate 5 Mg/5 Ml Vial) 5 mg IVP Q8H PRN PRN Reason: HR>130 Last Admin: 09/11/20 09:34 Dose: 5 mg Documented by: Ondansetron HCl (Ondansetron Odt 4 Mg Tab) 4 mg PO Q6H PRN PRN Reason: Nausea/Vomiting Ondansetron HCl (Ondansetron Pf 4 Mg/2 Ml Vial) 4 mg IVP Q6H PRN PRN Reason: Nausea/Vomiting Pantoprazole Sodium (Pantoprazole 40 Mg Tab) 40 mg PO [facility] Last Admin: 09/13/20 08:45 Dose: 40 mg Documented by: Polyethylene Glycol (Polyethylene Glycol 3350 17 Gm Packet) 17 gm PO DAILY [facility] Last Admin: 09/13/20 09:01 Dose: 17 gm Documented by: Potassium Chloride (Potassium Chloride 10 Meq Tab) 10 meq PO BID[facility] Last Admin: 09/13/20 08:46 Dose: 10 meq Documented by: Prednisone (Prednisone 20 Mg Tab) 40 mg PO [facility] Last Admin: 09/13/20 08:45 Dose: 40 mg Documented by: Sodium Chloride (Flush - Normal Saline 10 Ml Syringe) 10 ml IVF PRN PRN PRN Reason: Saline Flush Last Admin: 09/12/20 14:57 Dose: 10 ml Documented by: Sotalol HCl (Sotalol Hcl 80 Mg Tab) 120 mg PO Q12HR [facility] Last Admin: 09/13/20 08:45 Dose: 120 mg Documented by: Spironolactone (Spironolactone 25 Mg Tab) 25 mg PO [facility] Last Admin: 09/13/20 08:45 Dose: 25 mg Documented by: Thiamine HCl (Thiamine 100 Mg Tab) 100 mg PO DAILY [facility] Last Admin: 09/13/20 09:01 Dose: 100 mg Documented by: Vital Signs & Weight: Vital Signs Temp Pulse Resp Pulse Ox 09/13/20 08:45 83 09/13/20 07:19 97.6 F 09/13/20 07:12 83 20 96 09/13/20 04:00 97.1 F L 09/13/20 02:51 76 17 92 L 09/13/20 00:00 97.1 F L 09/12/20 22:06 86 16 97 Weight 383 lb 9.669 oz I/O: I/O 09/12/20 09/13/20 09/14/20 06:59 06:59 06:59 Intake Total 1330 1456 Output Total 4050 2850 Balance -0680 -1394 - Physical Exam General: alert & oriented x3, no apparent distress, speech clear, affect appropriate. negative: appears well HEENT: mucus membranes moist, normocephaly, EOMI Neck: supple neck, midline trachea, no JVD/HJR Cardiology: regular rate and rhythm, no murmur, regular rate Lungs: clear to auscultation, normal breath sounds Neurology: cranial nerve 2-12 intact, grossly intact, coordination normal Abdomen: unremarkable, active bowel sounds, HJR negative Extremities: dry, strong pulses, warm Skin: groin sites stable - Labs Result Diagrams: 09/12/20 03:07 09/13/20 04:30 - EKG Interpretation EKG Method: Telemetry EKG shows: Sinus rhythm - Assessment/Plan Assessment/Plan: IMPRESSION: 1. Paroxysmal atrial fibrillation/atypical atrial flutter with rapid ventricular response, responsive to sotalol. 2. Diastolic congestive heart failure, left ventricular ejection fraction 55%. 3. Hypokalemia and mild hypomagnesemia at 1.9. 4. Morbid obesity. 5. Chronic lymphedema. 6. Transaminitis. Sotalol loading, 4th dose this AM. 12 lead ECG ordered/due at noon. QTc stable so far. Continue Sotalol 120mg BID. Replacement for electrolytes ordered. K 3.8 and Mg 1.8 today. Goal: K>4.0 and Mag >2.0
[2020-09-14 05:32] LABS: ALT (SGPT) 249 U/L (8-55); AST (SGOT) 192 U/L (5-34); Albumin 3.1 g/dL (3.5-5.0); Alkaline Phosphatase 371 U/L (40-110); Anion Gap 12 mmol/L (10-20); BUN (Urea Nitrogen) 22 mg/dL (8.9-20.6); Calc. Creatinine Clearance 289 mL/min (70-130); Calcium 9.1 mg/dL (7.8-10.44); Carbon Dioxide 33 mmol/L (22-29); Chloride 96 mmol/L (98-107); Globulin 4.1 g/dL (2.4-3.5); Glucose 98 mg/dL (70-105); Potassium 3.9 mmol/L (3.5-5.1); Protein, Total 7.2 g/dL (6.0-8.3); Sodium 137 mmol/L (136-145)
[2020-09-14] MEDS: Furosemide 40 MG/4 ML VIAL SLOW IVP SCH ×2 (05:36→15:16)
[2020-09-14 05:47] LABS: #Eosinphils 0.1 thou/uL (0.0-0.7); #Lymphocytes 1.4 thou/uL (1.20-3.40); #Monocytes 1.1 thou/uL (0.11-0.59); #Neutrophils 4.5 thou/uL (1.40-6.50); %Basophils 0.6 % (0.0-1.0); %Eosinophils 1.1 % (0.0-10.0); %Lymphocytes 20.1 % (21.0-51.0); %Monocytes 14.9 % (0.0-10.0); %Neutrophils 63.3 % (42.0-75.0); Hemoglobin 10.9 g/dL (14.0-18.0); Mean Corpuscular HGB CONC 29.2 g/dL (32.0-36.0); Mean Corpuscular Hemoglobin 26.1 pg (27.0-31.0); Mean Corpuscular Volume 89.1 fL (78.0-98.0); Mean Platelet Volume 7.8 fL (7.4-10.4); Platelet Count 263 thou/uL (130-400); RBC Distribution Width 15.7 % (11.5-14.5); Red Blood Cell (RBC) Count 4.18 mill/uL (4.70-6.10); White Blood Cell (WBC) Count 7.1 thou/uL (4.8-10.8)
--- NOTE | 2020-09-14 06:55 | PDOC.FM ---
- Subjective Subjective: Pt doing well this morning. Has no complaints. - Objective Vital Signs & Weight: Vital Signs (12 hours) Temp Pulse Resp BP BP Pulse Ox 09/14/20 04:00 98.8 F 99 20 120/67 09/14/20 02:31 79 17 98 09/14/20 02:30 17 98 09/13/20 22:17 88 22 H 92 L 09/13/20 21:36 86 119/63 09/13/20 21:00 22 H 92 L 09/13/20 20:00 119/63 97 09/13/20 19:18 98.1 F 09/13/20 19:09 87 16 97 Weight Weight 174 kg Most Recent Monitor Data Heart Rate from ECG 87 NIBP 128/56 NIBP BP-Mean 80 Respiration from ECG 28 SpO2 96 I&O: 09/12/20 09/13/20 09/14/20 06:59 06:59 06:59 Intake Total 1330 1456 220 Output Total 4050 8040 3804 Balance -4337 -3416 -5271 Result Diagrams: 09/14/20 04:31 09/14/20 04:31 Phys Exam - Physical Examination Constitutional: NAD Neck: supple Respiratory: no wheezing, clear to auscultation bilateral Cardiovascular: RRR, no significant murmur Gastrointestinal: soft, non-tender, no distention Musculoskeletal: edema present Neurological: non-focal, moves all 4 limbs Psychiatric: A&O x 3 Dx/Plan (1) Acute and chronic respiratory failure with hypoxia Code(s): J96.21 - ACUTE AND CHRONIC RESPIRATORY FAILURE WITH HYPOXIA Status: Acute (2) Alcohol abuse Code(s): F10.10 - ALCOHOL ABUSE, UNCOMPLICATED Status: Chronic (3) HTN (hypertension) Code(s): I10 - ESSENTIAL (PRIMARY) HYPERTENSION Status: Chronic Qualifiers: (4) Lymphedema of both lower extremities Code(s): I89.0 - LYMPHEDEMA, NOT ELSEWHERE CLASSIFIED Status: Chronic (5) Transaminitis Code(s): R74.0 - NONSPEC ELEV OF LEVELS OF TRANSAMNS & LACTIC * DO NOT USE * Status: Chronic (6) Morbid obesity with BMI of 70 and over, adult Code(s): E66.01 - MORBID (SEVERE) OBESITY DUE TO EXCESS CALORIES; Z68.45 - BODY MASS INDEX [BMI] 70 OR GREATER, ADULT Status: Acute - Plan Plan: 50yo male with morbid obesity, COPD and CHF presents w/ increased swelling and SOB #Acute Hypoxic Respiratory Failure 2/2 COPD exac vs CHF exac -predinsone and duonebs jeb -continue IV lasix -I/O: -2.7L last 24 hours -needs cpap at night, will need outpt f/u to help set up -LO 04/2019 showed right side chamber enlargement -consulted Dr. Lorenzo:milrinone gtt until LFT's back to baseline #Transaminitis - AST/ALT 192/149 - hx: EtOH abuse and HF - RUQ abdominal US: hepatosteatosis, splenomegaly, biliary sludge, laith lithiasis - GI consulted: due to alcoholic hepatitis and right heart failure, no intervention needed #A flutter s/p ablation - on eliquis 5mg bid - Dr. Lorenzo recs as above - consulted Dr Francisco: continue oral antiarrhythmic, oral anticoagulation, will need to lose weight to be candidate for ablation in future - replace K and Mg as needed #Diarrhea -resolved #Hyponatremia -Na 138 -this seems to be a chronic issue -continue to monitor #UTI, asymptomatic -UA + for leuks, bacteria -UCx: no growth -received rocephin #EtOH abuse -ASE protocol -on thiamine #HFpEF -continue with home meds -lasix 40mg IV BID - Dr. Lorenzo consulted, appreciate recs, as above -echo: EF 55-60%, poor quality due to body habitus -monitor I/O, daily weights #Lymphedema - Chronic condition - Monitor skin for breakdown CODE: FULL VTE: Lovenox DIET: HH, fluid restrict PCP: JANNETH Garcia Dispo:in tele. continue diuresing. appreciate HF Dr. Lorenzo recommendations Addendum - Attending - Attending Attestation Date/Time: 09/14/20 0551 I personally evaluated the patient and discussed the management with Dr. Barragan. I agree with the History, Examination, Assessment and Plan documented above with any addition or exceptions noted below. Patient is doing well. Liver enzymes increase slightly but pt is symptomatically improved. Will continue milrinone. Continue diuresis.
[2020-09-14] MEDS ORDERED: Potassium Chloride 20 MEQ TAB PO SCH (07:00)
--- NOTE | 2020-09-14 08:33 | EKG ---
Test Reason : Blood Pressure : / mmHG Vent. Rate : 144 BPM Atrial Rate : 337 BPM P-R Int : 000 ms QRS Dur : 090 ms QT Int : 302 ms P-R-T Axes : 000 037 035 degrees QTc Int : 467 ms Atrial flutter with variable A-V block Abnormal ECG When compared with ECG of 05-SEP-2020 20:29, (Unconfirmed) Atrial flutter has replaced Sinus rhythm Confirmed by DIPTI CORTEZ, SANTIAGO ([id number]) on 09/14/2020 8:33:13 AM Referred By: Confirmed By:SANTIAGO RESENDEZ MD
[2020-09-14] MEDS: Sotalol HCl 80 MG TAB PO SCH ×2 (09:16→20:57)
--- NOTE | 2020-09-14 09:18 | EKG ---
Test Reason : Blood Pressure : / mmHG Vent. Rate : 107 BPM Atrial Rate : 107 BPM P-R Int : 144 ms QRS Dur : 084 ms QT Int : 334 ms P-R-T Axes : 048 034 055 degrees QTc Int : 445 ms Sinus tachycardia with Premature atrial complexes Biatrial enlargement Abnormal ECG When compared with ECG of 10-SEP-2020 01:09, (Unconfirmed) Sinus rhythm has replaced Atrial flutter Confirmed by DIPTI CORTEZ, SANTIAGO ([id number]) on 09/14/2020 9:17:39 AM Referred By: NUBIA Confirmed By:SANTIAGO RESENDEZ MD
--- NOTE | 2020-09-14 09:19 | EKG ---
Test Reason : AM Blood Pressure : / mmHG Vent. Rate : 080 BPM Atrial Rate : 080 BPM P-R Int : 146 ms QRS Dur : 090 ms QT Int : 396 ms P-R-T Axes : 052 038 044 degrees QTc Int : 456 ms Normal sinus rhythm Normal ECG When compared with ECG of 10-SEP-2020 14:11, (Unconfirmed) Premature atrial complexes are no longer Present Confirmed by DIPTI CORTEZ, SANTIAGO ([id number]) on 09/14/2020 9:19:44 AM Referred By: NUBIA Confirmed By:SANTIAGO RESENDEZ MD
[2020-09-14] MEDS: predniSONE 20 MG TAB PO SCH (09:20)
[2020-09-14] MEDS: Potassium Chloride 10 MEQ TAB PO SCH ×2 (09:20→16:28)
[2020-09-14] MEDS: AcetaZOLAMIDE 250 MG TAB PO SCH (09:20)
[2020-09-14] MEDS: Spironolactone 25 MG TAB PO SCH (09:20)
[2020-09-14] MEDS: Thiamine 100 MG TAB PO SCH (09:21)
[2020-09-14] MEDS: Apixaban 5 MG TAB PO SCH ×2 (09:21→20:57)
[2020-09-14] MEDS: Aspirin 81 mg Enteric Coated Tablet PO SCH (09:21)
[2020-09-14] MEDS: Cyanocobalamin (Vitamin B-12) 1,000 MCG TAB PO SCH (09:22)
[2020-09-14] MEDS: Folic Acid 1 MG TAB PO SCH (09:23)
[2020-09-14] MEDS: Polyethylene Glycol 3350 17 GM Packet PO SCH (09:23)
[2020-09-14] MEDS: Multivitamin W/ Minerals 1 TAB PO SCH (09:23)
--- NOTE | 2020-09-14 13:44 | PDOC.EP ---
- Subjective Date: 09/14/20 Time: 13:45 Interval History: No new symptoms. Transferred to Tele floor. - Review of Systems Constitutional: denies: chills, fever, malaise, sweats, weakness, other Respiratory: denies: cough, dry, hemoptysis, pleuritic pain, shortness of breath, SOB with excertion, sputum, wheezing, other Cardiology: denies: chest pain, edema, heart racing, light headedness, paroxysmal noc. dyspnea, orthopnea, palpitations, passing out, pleuritic pain, pressure, swelling, other Gastrointestinal: denies: abdominal pain, constipation, diarrhea, hematochezia, melena, nausea, vomitting, other Musculoskeletal: denies: unstable gait, falls, neck pain, shoulder pain, arm pain, hand pain, leg pain, foot pain, other Neurological: denies: headache, vision changes, other - Objective Allergies/Adverse Reactions: Allergies Allergy/AdvReac Type Severity Reaction Status Date / Time warfarin Allergy Rash Verified 09/07/20 06:16 Current Medications Acetazolamide (Acetazolamide 250 Mg Tab) 250 mg PO DAILY [facility] Last Admin: 09/14/20 09:20 Dose: 250 mg Documented by: Albuterol/Ipratropium (Ipratropium/Albuterol Sulfate 3 Ml Neb) 3 ml NEB [id number] [facility] Last Admin: 09/14/20 10:33 Dose: 3 ml Documented by: Albuterol/Ipratropium (Ipratropium/Albuterol Sulfate 3 Ml Neb) 3 ml NEB [id number] PRN PRN Reason: SOB &/or Wheezing Apixaban (Apixaban 5 Mg Tab) 5 mg PO BID [facility] Last Admin: 09/14/20 09:21 Dose: 5 mg Documented by: Aspirin (Aspirin 81 Mg Enteric Coated Tablet) 81 mg PO DAILY [facility] Last Admin: 09/14/20 09:21 Dose: 81 mg Documented by: Cyanocobalamin (Cyanocobalamin (Vitamin B-12) 1,000 Mcg Tab) 2,500 mcg PO DAILY [facility] Last Admin: 09/14/20 09:22 Dose: 2,500 mcg Documented by: Folic Acid (Folic Acid 1 Mg Tab) 1 mg PO DAILY [facility] Last Admin: 09/14/20 09:23 Dose: 1 mg Documented by: Furosemide (Furosemide 40 Mg/4 Ml Vial) 40 mg SLOW IVP 0600,1400 [facility] Last Admin: 09/14/20 05:36 Dose: 40 mg Documented by: Milrinone Lactate/Dextrose (Milrinone Lactate/D5w) 100 mls @ 6.743 mls/hr IVPB INF [facility] Last Admin: 09/14/20 09:34 Dose: 100 mls Documented by: Iron/Minerals/Multivitamins (Multivitamin W/ Minerals 1 Tab) 1 tab PO DAILY [facility] Last Admin: 09/14/20 09:23 Dose: 1 tab Documented by: Metoprolol Succinate (Metoprolol Succinate Xl 25 Mg Tab) 25 mg PO Q12HR [facility] Last Admin: 09/14/20 09:16 Dose: 25 mg Documented by: Metoprolol Tartrate (Metoprolol Tartrate 5 Mg/5 Ml Vial) 5 mg IVP Q8H PRN PRN Reason: HR>130 Last Admin: 09/11/20 09:34 Dose: 5 mg Documented by: Ondansetron HCl (Ondansetron Odt 4 Mg Tab) 4 mg PO Q6H PRN PRN Reason: Nausea/Vomiting Ondansetron HCl (Ondansetron Pf 4 Mg/2 Ml Vial) 4 mg IVP Q6H PRN PRN Reason: Nausea/Vomiting Pantoprazole Sodium (Pantoprazole 40 Mg Tab) 40 mg PO [facility] Last Admin: 09/14/20 09:19 Dose: 40 mg Documented by: Polyethylene Glycol (Polyethylene Glycol 3350 17 Gm Packet) 17 gm PO DAILY [facility] Last Admin: 09/14/20 09:23 Dose: 17 gm Documented by: Potassium Chloride (Potassium Chloride 10 Meq Tab) 10 meq PO BID-[facility] Last Admin: 09/14/20 09:20 Dose: 10 meq Documented by: Prednisone (Prednisone 20 Mg Tab) 40 mg PO QAM[facility] Last Admin: 09/14/20 09:20 Dose: 40 mg Documented by: Sodium Chloride (Flush - Normal Saline 10 Ml Syringe) 10 ml IVF PRN PRN PRN Reason: Saline Flush Last Admin: 09/12/20 14:57 Dose: 10 ml Documented by: Sotalol HCl (Sotalol Hcl 80 Mg Tab) 120 mg PO Q12HR [facility] Last Admin: 09/14/20 09:16 Dose: 120 mg Documented by: Spironolactone (Spironolactone 25 Mg Tab) 25 mg PO QAM-WM [facility] Last Admin: 09/14/20 09:20 Dose: 25 mg Documented by: Thiamine HCl (Thiamine 100 Mg Tab) 100 mg PO DAILY [facility] Last Admin: 09/14/20 09:21 Dose: 100 mg Documented by: Vital Signs & Weight: Vital Signs Temp Pulse Resp BP BP Pulse Ox 09/14/20 12:00 99.3 F 81 22 H 117/66 117/66 95 09/14/20 10:33 80 20 96 09/14/20 09:16 86 118/63 09/14/20 08:00 117/59 L 09/14/20 07:46 99.7 F H 86 20 117/59 L 94 L 09/14/20 07:14 79 18 97 09/14/20 04:00 98.8 F 99 20 120/67 09/14/20 02:31 79 17 98 09/14/20 02:30 17 98 Admit Weight 399 lb 0.587 oz Weight 383 lb 9.669 oz I/O: I/O 09/13/20 09/14/20 09/15/20 06:59 06:59 06:59 Intake Total 1456 220 Output Total 2850 2925 Balance -1754 -6955 - Physical Exam General: alert & oriented x3, appears well Neck: midline trachea Cardiology: regular rate and rhythm, no murmur Lungs: clear to auscultation Neurology: grossly intact Abdomen: unremarkable Extremities: warm - Chadsvasc Risk factors Hypertension: 1 Risk Score: 1 - Labs Result Diagrams: 09/14/20 04:31 09/14/20 04:31 - Assessment/Plan Assessment/Plan: IMPRESSION: 1. Paroxysmal atrial fibrillation/atypical atrial flutter with rapid ventricular response, responsive to sotalol. 2. Diastolic congestive heart failure, left ventricular ejection fraction 55%. 3. Hypokalemia and mild hypomagnesemia at 1.9. 4. Morbid obesity. 5. Chronic lymphedema. 6. Transaminitis. Sotalol loading, 4th dose this AM. 12 lead ECG ordered/due at noon. QTc stable so far. Continue Sotalol 120mg BID. Replacement for electrolytes ordered. K 3.8 and Mg 1.8 today. Goal: K>4.0 and Mag >2.0 09/14/20 Remains in SR. No pro-arrhythmia.Would continue Sotlalol, OAC. Weight loss/ETOH cessation recommended prior to any ablation plans. Would sign out. Can see in office in 4-6 weeks.
[2020-09-15 05:17] LABS: ALT (SGPT) 292 U/L (8-55); AST (SGOT) 194 U/L (5-34); Albumin 3.1 g/dL (3.5-5.0); Alkaline Phosphatase 352 U/L (40-110); Anion Gap 12 mmol/L (10-20); BUN (Urea Nitrogen) 22 mg/dL (8.9-20.6); Bilirubin, Total 0.9 mg/dL (0.2-1.2); Calc. Creatinine Clearance 301 mL/min (70-130); Calcium 9.2 mg/dL (7.8-10.44); Carbon Dioxide 33 mmol/L (22-29); Chloride 98 mmol/L (98-107); Glucose 103 mg/dL (70-105); Magnesium 1.8 mg/dL (1.6-2.6); Potassium 3.9 mmol/L (3.5-5.1); Protein, Total 7.1 g/dL (6.0-8.3); Sodium 139 mmol/L (136-145)
--- NOTE | 2020-09-15 05:54 | PDOC.FM ---
- Subjective Subjective: Doing well this morning. In good spirits. Denies CP, abdominal pain, SOB. Reports marked improvement in his edema. - Objective MAR Reviewed: Yes Vital Signs & Weight: Vital Signs (12 hours) Temp Pulse Resp BP Pulse Ox 09/15/20 04:00 98.7 F 75 105/51 L 100 09/15/20 03:01 20 100 09/15/20 02:59 69 16 99 09/14/20 22:04 17 100 09/14/20 22:02 82 20 100 09/14/20 20:57 85 09/14/20 20:00 98 09/14/20 19:30 98.5 F 85 16 101/49 L 98 09/14/20 18:54 88 20 98 Weight Admit Weight 181 kg Weight 173.7 kg Most Recent Monitor Data Heart Rate from ECG 87 NIBP 128/56 NIBP BP-Mean 80 Respiration from ECG 28 SpO2 96 I&O: 09/13/20 09/14/20 09/15/20 06:59 06:59 06:59 Intake Total 5081 389 7538 Output Total 2850 2925 2800 Balance -1394 -2705 -1039 Result Diagrams: 09/14/20 04:31 09/15/20 04:18 EKG Reviewed by me: Yes (SR 60-80) Phys Exam - Physical Examination Constitutional: NAD HEENT: moist MMs Neck: supple, full ROM Respiratory: no wheezing, clear to auscultation bilateral Cardiovascular: RRR, no significant murmur Gastrointestinal: soft, non-tender, positive bowel sounds Musculoskeletal: edema present Psychiatric: normal affect Skin: normal turgor Dx/Plan - Plan Plan: 50yo male with morbid obesity, COPD and CHF presents w/ increased swelling and S OB Acute Hypoxic Respiratory Failure 2/2 COPD exac vs CHF exac -predinsone and duonebs jeb -continue IV lasix -I/O: -2.7L last 24 hours -needs cpap at night, will need outpt f/u to help set up -LO 04/2019 showed right side chamber enlargement -consulted Dr. Lorenzo: milrinone gtt until LFT's back to baseline Transaminitis - AST/ALT 194/292 - hx: EtOH abuse and HF - RUQ abdominal US: hepatosteatosis, splenomegaly, biliary sludge, cholelithiasis - GI consulted: due to alcoholic hepatitis and right heart failure, no intervention needed A flutter s/p ablation - on eliquis 5mg bid - Dr. Lorenzo recs as above - consulted Dr Francisco: continue oral antiarrhythmic, oral anticoagulation, will need to lose weight to be candidate for ablation in future - replace K and Mg as needed Diarrhea -resolved Hyponatremia, resolved -Na 139 -this seems to be a chronic issue, could be 2/2 to alcohol consumption -continue to monitor UTI, asymptomatic -UA + for leuks, bacteria -UCx: no growth -received rocephin EtOH abuse -ASE protocol -on thiamine HFpEF -continue with home meds -lasix 40mg IV BID - Dr. Lorenzo consulted, appreciate recs, as above -echo: EF 55-60%, poor quality due to body habitus -monitor I/O, daily weights Lymphedema - Chronic condition - Monitor skin for breakdown Dispo: continue diuresis on tele, will continue to f/u Dr. Lorenzo's recs Addendum - Attending - Attending Attestation Date/Time: 09/15/20 [id number] I personally evaluated the patient and discussed the management with Dr. Mae. I agree with the History, Examination, Assessment and Plan documented above with any addition or exceptions noted below. Patient is doing well. He continues to get over large amounts of fluid each day. Will continue diuresis. Liver enzymes have stabilized but are not back to normal. Will monitor.
[2020-09-15] MEDS: Furosemide 40 MG/4 ML VIAL SLOW IVP SCH ×2 (06:22→17:01)
[2020-09-15] MEDS: predniSONE 20 MG TAB PO SCH (08:58)
[2020-09-15] MEDS: Spironolactone 25 MG TAB PO SCH (08:58)
[2020-09-15] MEDS: Aspirin 81 mg Enteric Coated Tablet PO SCH (08:59)
[2020-09-15] MEDS: Cyanocobalamin (Vitamin B-12) 1,000 MCG TAB PO SCH (08:59)
[2020-09-15] MEDS: Potassium Chloride 10 MEQ TAB PO SCH ×2 (09:01→17:01)
[2020-09-15] MEDS: Sotalol HCl 80 MG TAB PO SCH ×2 (09:01→20:45)
[2020-09-15] MEDS: Folic Acid 1 MG TAB PO SCH (09:02)
[2020-09-15] MEDS: Multivitamin W/ Minerals 1 TAB PO SCH (09:02)
[2020-09-15] MEDS: Thiamine 100 MG TAB PO SCH (09:02)
[2020-09-15] MEDS: Apixaban 5 MG TAB PO SCH ×2 (09:02→20:45)
[2020-09-15] MEDS: AcetaZOLAMIDE 250 MG TAB PO SCH (09:02)
[2020-09-15] MEDS: Polyethylene Glycol 3350 17 GM Packet PO SCH (09:02)
[2020-09-16 05:04] LABS: ALT (SGPT) 348 U/L (8-55); AST (SGOT) 203 U/L (5-34); Alkaline Phosphatase 310 U/L (40-110); Anion Gap 11 mmol/L (10-20); BUN (Urea Nitrogen) 20 mg/dL (8.9-20.6); Bilirubin, Total 0.8 mg/dL (0.2-1.2); Calc. Creatinine Clearance 314 mL/min (70-130); Calcium 8.9 mg/dL (7.8-10.44); Carbon Dioxide 32 mmol/L (22-29); Chloride 99 mmol/L (98-107); Globulin 3.6 g/dL (2.4-3.5); Glucose 102 mg/dL (70-105); Magnesium 1.8 mg/dL (1.6-2.6); Potassium 3.7 mmol/L (3.5-5.1); Protein, Total 6.6 g/dL (6.0-8.3); Sodium 138 mmol/L (136-145)
--- NOTE | 2020-09-16 05:43 | PDOC.FM ---
- Subjective Subjective: Patient resting comfortably in bed. He was not wearing his CPAP, but reported that he wore it overnight. Denies any current CP, SOB, abdominal pain. Reports BM last night. - Objective MAR Reviewed: Yes Vital Signs & Weight: Vital Signs (12 hours) Temp Pulse Resp BP BP Pulse Ox 09/16/20 04:00 113/56 L 09/16/20 03:00 96.9 F L 72 16 113/56 L 97 09/16/20 01:53 21 H 98 09/16/20 01:52 74 16 99 09/16/20 01:14 94 L 09/16/20 00:00 79 20 117/56 L 117/56 L 09/15/20 22:31 85 16 94 L 09/15/20 20:45 88 117/58 L 09/15/20 20:00 98.1 F 88 20 117/58 L 117/58 L 95 09/15/20 19:11 88 16 92 L Weight Admit Weight 181 kg Weight 173.7 kg Most Recent Monitor Data Heart Rate from ECG 87 NIBP 128/56 NIBP BP-Mean 80 Respiration from ECG 28 SpO2 96 I&O: 09/14/20 09/15/20 09/16/20 06:59 06:59 06:59 Intake Total 220 1761 1200 Output Total 2925 3400 2100 Balance -4933 -6102 -900 Result Diagrams: 09/14/20 04:31 09/16/20 04:15 EKG Reviewed by me: Yes (SR 70-90) Phys Exam - Physical Examination Constitutional: NAD HEENT: moist MMs Neck: supple Respiratory: no wheezing, no rales, clear to auscultation bilateral Cardiovascular: RRR, no significant murmur Gastrointestinal: soft, non-tender, positive bowel sounds Musculoskeletal: edema present Neurological: non-focal Psychiatric: normal affect Skin: normal turgor Dx/Plan - Plan Plan: 50yo male with morbid obesity, COPD and CHF presents w/ increased swelling and SOB Acute Hypoxic Respiratory Failure 2/2 COPD exac vs CHF exac -predinsone and duonebs jeb -continue IV lasix -I/O: -2.7L last 24 hours -needs cpap at night, will need outpt f/u to help set up -LO 04/2019 showed right side chamber enlargement -consulted Dr. Lorenzo: milrinone gtt until LFT's back to baseline, will contact Dr. Lorenzo today regarding further recommendations as LFTs may be at new baseline Transaminitis - AST/ALT 203/348, may be approaching new baseline - hx: EtOH abuse and HF - RUQ abdominal US: hepatosteatosis, splenomegaly, biliary sludge, cholelithiasis - GI consulted: due to alcoholic hepatitis and right heart failure, no intervention needed A flutter s/p ablation - on eliquis 5mg bid - Dr. Lorenzo recs as above - consulted Dr Francisco: continue oral antiarrhythmic, oral anticoagulation, will need to lose weight to be candidate for ablation in future - replace K and Mg as needed Diarrhea -resolved Hyponatremia, resolved -Na 139 -this seems to be a chronic issue, could be 2/2 to alcohol consumption -continue to monitor UTI, asymptomatic -UA + for leuks, bacteria -UCx: no growth -received rocephin EtOH abuse -ASE protocol -on thiamine HFpEF -continue with home meds -lasix 40mg IV BID - Dr. Lorenzo consulted, appreciate recs, as above -echo: EF 55-60%, poor quality due to body habitus -monitor I/O, daily weights Lymphedema - Chronic condition - Monitor skin for breakdown Dispo: continue diuresis on tele, will continue to f/u Dr. Lorenzo's recs Addendum - Attending - Attending Attestation Date/Time: 09/16/20 5702 I personally evaluated the patient and discussed the management with Dr. Mae. I agree with the History, Examination, Assessment and Plan documented above with any addition or exceptions noted below. Milrinone drip is being increased, liver enzymes have increased. Continue diuresis.
[2020-09-16] MEDS: Furosemide 40 MG/4 ML VIAL SLOW IVP SCH ×2 (06:26→13:47)
[2020-09-16] MEDS: Aspirin 81 mg Enteric Coated Tablet PO SCH (08:11)
[2020-09-16] MEDS: Cyanocobalamin (Vitamin B-12) 1,000 MCG TAB PO SCH (08:11)
[2020-09-16] MEDS: predniSONE 20 MG TAB PO SCH (08:12)
[2020-09-16] MEDS: Folic Acid 1 MG TAB PO SCH (08:12)
[2020-09-16] MEDS: Apixaban 5 MG TAB PO SCH ×2 (08:12→21:33)
[2020-09-16] MEDS: Potassium Chloride 10 MEQ TAB PO SCH ×2 (08:12→17:21)
[2020-09-16] MEDS: Thiamine 100 MG TAB PO SCH (08:13)
[2020-09-16] MEDS: Spironolactone 25 MG TAB PO SCH (08:13)
[2020-09-16] MEDS: Sotalol HCl 80 MG TAB PO SCH ×2 (08:13→21:32)
[2020-09-16] MEDS: Multivitamin W/ Minerals 1 TAB PO SCH (08:13)
[2020-09-16] MEDS: AcetaZOLAMIDE 250 MG TAB PO SCH (08:13)
[2020-09-16] MEDS: Polyethylene Glycol 3350 17 GM Packet PO SCH (08:14)
[2020-09-16] MEDS ORDERED: Magnesium 2 GM/50 ML 2 GM in Premix Bag 1 BAG IVPB SCH (16:30)
[2020-09-16] MEDS ORDERED: Potassium Chloride 20 MEQ TAB PO SCH (16:30)
[2020-09-17] MEDS: Furosemide 40 MG/4 ML VIAL SLOW IVP SCH ×2 (05:18→14:16)
--- NOTE | 2020-09-17 05:19 | PDOC.FM ---
- Subjective Subjective: Pt slept well on cpap last night. Has been working with PT. Complaining about low sodium diet and threatening he is going to stop eating. - Objective Vital Signs & Weight: Vital Signs (12 hours) Temp Pulse Resp BP BP Pulse Ox 09/17/20 04:30 99/56 L 09/17/20 03:38 79 18 111/54 L 93 L 09/17/20 01:56 81 16 96 09/17/20 01:45 98 09/17/20 00:38 116/55 L 116/55 L 09/16/20 22:37 16 98 09/16/20 22:34 84 16 98 09/16/20 21:34 98.0 F 87 16 109/57 L 95 09/16/20 20:00 109/57 L 09/16/20 18:08 127 H 24 H 89 L Weight Admit Weight 181 kg Weight 168.639 kg Most Recent Monitor Data Heart Rate from ECG 87 NIBP 128/56 NIBP BP-Mean 80 Respiration from ECG 28 SpO2 96 I&O: 09/15/20 09/16/20 09/17/20 06:59 06:59 06:59 Intake Total 1761 1640 1160 Output Total 3400 3075 2500 Balance -3807 -9617 -4830 Result Diagrams: 09/14/20 04:31 09/17/20 04:22 Phys Exam - Physical Examination Constitutional: NAD Neck: supple, full ROM Respiratory: no wheezing, clear to auscultation bilateral Cardiovascular: RRR, no significant murmur Gastrointestinal: soft, non-tender, no distention Musculoskeletal: edema present Neurological: non-focal Psychiatric: A&O x 3 Dx/Plan (1) Acute and chronic respiratory failure with hypoxia Code(s): J96.21 - ACUTE AND CHRONIC RESPIRATORY FAILURE WITH HYPOXIA Status: Acute (2) Alcohol abuse Code(s): F10.10 - ALCOHOL ABUSE, UNCOMPLICATED Status: Chronic (3) HTN (hypertension) Code(s): I10 - ESSENTIAL (PRIMARY) HYPERTENSION Status: Chronic Qualifiers: (4) Lymphedema of both lower extremities Code(s): I89.0 - LYMPHEDEMA, NOT ELSEWHERE CLASSIFIED Status: Chronic (5) Transaminitis Code(s): R74.0 - NONSPEC ELEV OF LEVELS OF TRANSAMNS & LACTIC * DO NOT USE * Status: Chronic (6) Morbid obesity with BMI of 70 and over, adult Code(s): E66.01 - MORBID (SEVERE) OBESITY DUE TO EXCESS CALORIES; Z68.45 - BODY MASS INDEX [BMI] 70 OR GREATER, ADULT Status: Acute - Plan Plan: 50yo male with morbid obesity, COPD and CHF presents w/ increased swelling and SOB Acute Hypoxic Respiratory Failure 2/2 COPD exac vs CHF exac -predinsone and duonebs jeb -continue IV lasix -I/O: -2.2L last 24 hours, total has diuresed close to 30L to date -needs cpap at night, will need outpt f/u to help set up -LO 04/2019 showed right side chamber enlargement -consulted Dr. Lorenzo: milrinone gtt until LFT's back to baseline Transaminitis - enzymes increased due to unintended decrease in milrinone gtt, will increase back to 0.25 - AST/ALT 203/348 - hx: EtOH abuse and HF - RUQ abdominal US: hepatosteatosis, splenomegaly, biliary sludge, cholelithi asis - GI consulted: due to alcoholic hepatitis and right heart failure, no intervention needed A flutter s/p ablation - on eliquis 5mg bid - Dr. Lorenzo recs as above - consulted Dr Francisco: continue oral antiarrhythmic, oral anticoagulation, will need to lose weight to be candidate for ablation in future - replace K and Mg as needed Diarrhea -resolved Hyponatremia, resolved -Na 139 -this seems to be a chronic issue, could be 2/2 to alcohol consumption -continue to monitor UTI, asymptomatic -UA + for leuks, bacteria -UCx: no growth -received rocephin EtOH abuse -ASE protocol -on thiamine HFpEF -continue with home meds -lasix 40mg IV BID - Dr. Lorenzo consulted, appreciate recs, as above -echo: EF 55-60%, poor quality due to body habitus -monitor I/O, daily weights Lymphedema - Chronic condition - Monitor skin for breakdown Dispo: continue diuresis on tele, will continue to f/u Dr. Lorenzo's recs
[2020-09-17 05:43] LABS: ALT (SGPT) 364 U/L (8-55); AST (SGOT) 194 U/L (5-34); Alkaline Phosphatase 287 U/L (40-110); Anion Gap 11 mmol/L (10-20); BUN (Urea Nitrogen) 21 mg/dL (8.9-20.6); Bilirubin, Total 0.8 mg/dL (0.2-1.2); Calc. Creatinine Clearance 296 mL/min (70-130); Carbon Dioxide 31 mmol/L (22-29); Chloride 100 mmol/L (98-107); Globulin 3.8 g/dL (2.4-3.5); Glucose 99 mg/dL (70-105); Magnesium 1.9 mg/dL (1.6-2.6); Potassium 3.8 mmol/L (3.5-5.1); Protein, Total 6.8 g/dL (6.0-8.3); Sodium 138 mmol/L (136-145)
[2020-09-17] MEDS ORDERED: Magnesium 2 GM/50 ML 2 GM in Premix Bag 1 BAG IVPB SCH (08:15)
[2020-09-17] MEDS ORDERED: Potassium Chloride 20 MEQ TAB PO SCH (08:30)
[2020-09-17] MEDS: Polyethylene Glycol 3350 17 GM Packet PO SCH ×2 (09:26→09:41)
[2020-09-17] MEDS: predniSONE 20 MG TAB PO SCH (09:26)
[2020-09-17] MEDS: Folic Acid 1 MG TAB PO SCH (09:27)
[2020-09-17] MEDS: Spironolactone 25 MG TAB PO SCH (09:28)
[2020-09-17] MEDS: Sotalol HCl 80 MG TAB PO SCH ×2 (09:28→21:02)
[2020-09-17] MEDS: Aspirin 81 mg Enteric Coated Tablet PO SCH (09:28)
[2020-09-17] MEDS: Apixaban 5 MG TAB PO SCH ×2 (09:28→21:03)
[2020-09-17] MEDS: Multivitamin W/ Minerals 1 TAB PO SCH (09:29)
[2020-09-17] MEDS: Thiamine 100 MG TAB PO SCH (09:29)
[2020-09-17] MEDS: AcetaZOLAMIDE 250 MG TAB PO SCH (09:31)
[2020-09-17] MEDS: Potassium Chloride 10 MEQ TAB PO SCH (09:51)
--- NOTE | 2020-09-17 12:25 | PRG ---
DATE OF SERVICE: 09/17/2020 Please see the note from Dr. Barragan, which I agree. The patient was seen, evaluated, discussed, and examined with the residents. Here for COPD and preserved ejection fraction, heart failure exacerbation. Dr. Lorenzo, heart failure specialist, is following along. Looks like we may be have diuresed over 30 L on him. Things have been fairly stable and they are watching the EKGs closely with all his medicines and are following electrolytes while we diurese him. At home, he is already on nasal cannula O2, so I do not imagine that is going to change much baseline the same by now and is fairly stable, so we are waiting to see what Dr. Lorenzo recommends as far as how much more diuresis he wants. Job ID: [id number]
[2020-09-17] MEDS: Potassium Chloride 20 MEQ TAB PO SCH (17:28)
[2020-09-18 05:23] LABS: ALT (SGPT) 317 U/L (8-55); AST (SGOT) 148 U/L (5-34); Alkaline Phosphatase 272 U/L (40-110); Anion Gap 13 mmol/L (10-20); BUN (Urea Nitrogen) 20 mg/dL (8.9-20.6); Bilirubin, Total 0.8 mg/dL (0.2-1.2); Calc. Creatinine Clearance 271 mL/min (70-130); Calcium 8.7 mg/dL (7.8-10.44); Carbon Dioxide 29 mmol/L (22-29); Chloride 100 mmol/L (98-107); Globulin 3.5 g/dL (2.4-3.5); Glucose 94 mg/dL (70-105); Potassium 3.8 mmol/L (3.5-5.1); Protein, Total 6.5 g/dL (6.0-8.3); Sodium 138 mmol/L (136-145)
--- NOTE | 2020-09-18 05:50 | PDOC.FM ---
- Subjective Subjective: Pt awake and alert this morning. Continued to complain about low sodium diet. On his bedside table was packaged container of smoked oysters that was brought to him by his . He says he is ready to go home and he feels back to his baseline. Did have one episode of a fib overnight for 28seconds on tele monitor. - Objective Vital Signs & Weight: Vital Signs (12 hours) Temp Pulse Resp BP BP BP Pulse Ox 09/18/20 04:00 98.1 F 79 18 111/55 L 111/55 L 97 09/18/20 01:45 72 16 98 09/18/20 01:18 74 19 96 09/18/20 00:00 72 18 104/55 L 97 09/17/20 22:30 84 16 100 09/17/20 21:02 88 109/56 L 09/17/20 20:00 98.9 F 87 20 109/56 L 109/56 L 96 09/17/20 19:20 81 16 95 Weight Admit Weight 181 kg Weight 162.893 kg Most Recent Monitor Data Heart Rate from ECG 87 NIBP 128/56 NIBP BP-Mean 80 Respiration from ECG 28 SpO2 96 I&O: 09/16/20 09/17/20 09/18/20 06:59 06:59 06:59 Intake Total 1640 1389 977 Output Total 3710 4077 1760 Balance -2206 -8527 -6525 Result Diagrams: 09/14/20 04:31 09/18/20 03:57 Phys Exam - Physical Examination Constitutional: NAD Neck: supple, full ROM Respiratory: no rhonchi minimal end exp wheezing heart on ant lung jacques Cardiovascular: RRR, no significant murmur Gastrointestinal: soft, non-tender, no distention Musculoskeletal: edema present Neurological: non-focal, moves all 4 limbs Psychiatric: normal affect, A&O x 3 Skin: no rash Dx/Plan (1) Acute and chronic respiratory failure with hypoxia Code(s): J96.21 - ACUTE AND CHRONIC RESPIRATORY FAILURE WITH HYPOXIA Status: Acute (2) Alcohol abuse Code(s): F10.10 - ALCOHOL ABUSE, UNCOMPLICATED Status: Chronic (3) HTN (hypertension) Code(s): I10 - ESSENTIAL (PRIMARY) HYPERTENSION Status: Chronic Qualifiers: (4) Lymphedema of both lower extremities Code(s): I89.0 - LYMPHEDEMA, NOT ELSEWHERE CLASSIFIED Status: Chronic (5) Transaminitis Code(s): R74.0 - NONSPEC ELEV OF LEVELS OF TRANSAMNS & LACTIC * DO NOT USE * Status: Chronic (6) Morbid obesity with BMI of 70 and over, adult Code(s): E66.01 - MORBID (SEVERE) OBESITY DUE TO EXCESS CALORIES; Z68.45 - BODY MASS INDEX [BMI] 70 OR GREATER, ADULT Status: Acute - Plan Plan: 50yo male with morbid obesity, COPD and CHF presents w/ increased swelling and SOB Acute Hypoxic Respiratory Failure 2/2 COPD exac vs CHF exac -duonebs jeb q8h, prednisone (09/06-09/18) -continue IV lasix -I/O: -2.5L last 24 hours -needs cpap at night, will need outpt f/u to help set up -LO 04/2019 showed right side chamber enlargement -consulted Dr. Lorenzo: milrinone gtt until LFT's back to baseline, will touch base with him about plan going forward Transaminitis - enzymes increased due to unintended decrease in milrinone gtt, will increase back to 0.25 - AST/ALT 203/348 - hx: EtOH abuse and HF - RUQ abdominal US: hepatosteatosis, splenomegaly, biliary sludge, cholelithiasis - GI consulted: due to alcoholic hepatitis and right heart failure, no intervention needed A flutter s/p ablation - on eliquis 5mg bid - Dr. Lorenzo recs as above - consulted Dr Francisco: continue oral antiarrhythmic, oral anticoagulation, will need to lose weight to be candidate for ablation in future - replace K and Mg as needed Diarrhea -resolved Hyponatremia, resolved -Na 139 -this seems to be a chronic issue, could be 2/2 to alcohol consumption -continue to monitor UTI, asymptomatic -UA + for leuks, bacteria -UCx: no growth -received rocephin EtOH abuse -ASE protocol -on thiamine HFpEF -continue with home meds -lasix 40mg IV BID - Dr. Lorenzo consulted, appreciate recs, as above -echo: EF 55-60%, poor quality due to body habitus -monitor I/O, daily weights Lymphedema - Chronic condition - Monitor skin for breakdown Dispo: continue diuresis on tele, will continue to f/u Dr. Lorenzo's recs
[2020-09-18] MEDS: Furosemide 40 MG/4 ML VIAL SLOW IVP SCH (05:52)
[2020-09-18] MEDS ORDERED: Potassium Chloride 20 MEQ TAB PO SCH (06:00)
[2020-09-18] MEDS: Thiamine 100 MG TAB PO SCH (08:42)
[2020-09-18] MEDS: Spironolactone 25 MG TAB PO SCH (08:42)
[2020-09-18] MEDS: Folic Acid 1 MG TAB PO SCH (08:43)
[2020-09-18] MEDS: Aspirin 81 mg Enteric Coated Tablet PO SCH (08:44)
[2020-09-18] MEDS: Cyanocobalamin (Vitamin B-12) 1,000 MCG TAB PO SCH (08:44)
[2020-09-18] MEDS: AcetaZOLAMIDE 250 MG TAB PO SCH (08:44)
[2020-09-18] MEDS: Potassium Chloride 20 MEQ TAB PO SCH ×2 (08:45→16:24)
[2020-09-18] MEDS: Multivitamin W/ Minerals 1 TAB PO SCH (08:45)
[2020-09-18] MEDS: Apixaban 5 MG TAB PO SCH ×2 (08:45→20:50)
[2020-09-18] MEDS: Polyethylene Glycol 3350 17 GM Packet PO SCH (08:46)
[2020-09-18] MEDS: Sotalol HCl 80 MG TAB PO SCH ×2 (09:17→20:48)
[2020-09-18] MEDS: predniSONE 20 MG TAB PO SCH (10:36)
--- NOTE | 2020-09-18 11:56 | PRG ---
DATE OF SERVICE: 09/18/2020 Please see note from Dr[address] Nicol Barragan, for which I agree. The patient was seen, evaluated, discussed, and examined with the residents by bedside. The patient is down another 2.5 L. He is having a hard time being compliant on a low-salt diet. LFTs are still an issue with him, but it sounds likely a chronic issue with a lot of alcohol at home. Dr. Lorenzo is following those closely. In and out of atrial fibrillation. But in general, things are going on in the right direction, I am not sure what the ultimate plan is when Dr. Lorenzo feels like he is ready to be discharged. Lungs sound fairly good, oxygen level sounds like he is basically at baseline. I encouraged him to continue to try to avoid falls and decrease overall fluids, although it has been a little bit difficult for the nursing staff to keep him compliant. Job ID: [id number]
[2020-09-18 13:03] LABS: Ferritin 71.89 ng/mL (22-322)
[2020-09-18 13:39] LABS: HBCM Index 0.16 S/CO (0-0.79); HBSAB Concentration Less than 8.00 mIU/mL; Hep B Surf AB Non-Reactive (NonReactive); Hep C IgG Ab Non-Reactive (NonReactive); Hep C Index 0.22 S/CO (0-0.79); Hepatitis B Core IgM Abs Non-Reactive (NonReactive)
--- NOTE | 2020-09-18 14:35 | PRG ---
DATE OF SERVICE: 09/18/2020 TRANSITION OF CARE NOTE: The patient is a 50-year-old male, who presented to the ED with dizziness and shortness of breath. Has a history of morbid obesity, COPD and CHF, chronically on 3 L of oxygen at home. He states he had increased swelling of his legs, so much so that he was not able to climb the stairs in his RV that he lives in to get up to his bedroom and was having to sleep in the recliner. He also has a history of alcohol abuse, drinks three shots of vodka per day and tobacco abuse, smoking one pack of cigarettes per day since age 14. Also has a history of atrial fibrillation/atrial flutter, status post ablation. Had been on Coumadin for a while, but then was stopped due to GI bleed. In the ED, was found to have sats around 78% on 3 L, so oxygen was increased to 5 L with improved O2 saturations. Flu and COVID were negative. Chest x-ray showed multifocal bilateral infiltrates suspecting pneumonia. Was started on cefepime and vancomycin in the ED, but did not continue these due to the patient having no source for infection. Also started on steroids for suspected COPD exacerbation. Was found to have a UA positive for leukocytes and bacteria. Was placed on Rocephin and completed antibiotic treatment. Noted to have AST and ALT of 88 and 33 respectively, likely due to alcohol abuse and hepatosteatosis. The patient was started on the ASE protocol and a Librium taper for the alcohol abuse. The patient states that he was taking his Lasix as prescribed at home. He has diagnosis of obstructive sleep apnea and is supposed to wear CPAP at night, but was not able to get the CPAP at home yet. Transthoracic echo done on 09/06/2020 showed ejection fraction of 55% to 60%, but had overall poor visualization due to body habitus. After some chart review, it was noted that a LO had been done in 2019 showing right-sided enlargement. The patient complained of continued shortness of breath and possibly felt that it was worsening, so labs and repeat chest x-ray done. An elevated D-dimer resulted in a CTA showing no pulmonary embolus, but positive for loculation in the left lobe, atelectasis, congestion, and edema. Chest x-ray also showed vascular congestion, unchanged from previous. The BNP was redrawn, and it had increased from initial BNP. The patient continued to diurese well on IV Lasix b.i.d. Due to patient's deterioration and difficulty with managing his suspected right heart failure, Dr. Lorenzo, cableway operator, was consulted. On 09/10/2020, night team was contacted regarding the patient saturating in the 70s with nasal cannula. Respiratory Therapy came in and placed the patient on BiPAP with improvement of O2 sats in the 90s. The patient noted to be in atrial fibrillation/atrial flutter with rates in the 140s to 160s on tele, but was asymptomatic. The patient was placed on diltiazem drip at 5 mg/hour and the patient was on Lovenox daily, [facility] Abdominal ultrasound was done on 09/11/2020 due to continued transaminitis, which showed hepatic steatosis, biliary sludge, and moderate to severe splenomegaly. Dr. Lorenzo saw the patient and recommended to discontinue diltiazem. He also adjusted some of his other diuretics and antihypertensive. Started him on sotalol b.i.d. for rhythm control. Was suggested to maintain the patient's magnesium to greater than 2 and potassium to greater than 4 for the rest of the hospital stay. The patient had other episodes of SVT, so sotalol was increased to 120 mg b.i.d. We also consulted Dr. Francisco, shingle sawyer, for help in managing this. He had seen the patient in the past having done his ablation. Dr. Francisco recommended that the patient would need to lose weight before being a candidate for ablation and that he was to continue the sotalol with repeat echocardiograms after the first 6 doses to watch his QTc. Dr. Lorenzo saw the patient throughout his stay, and with his continued decline in liver function, he suggested to start the patient on milrinone drip and to consult GI. GI, Dr. Rebolledo, saw the patient on 09/12/2020 and said that the transaminitis was due to patient's alcoholic liver disease in combination with hepatic congestion due to the heart failure. No further liver workup was planned at this time. The original goal was for the patient to stay on milrinone drip until transaminases return back to patient's baseline. At one point, the patient was transferred from [facility] to floor, and the milrinone was decreased from 0.25 to 0.125, and liver enzymes then increased. The patient started back on the correct dose, and liver enzymes only slightly improved. Dr. Lorenzo was consulted again for help with determining goals of care. At this point, the patient had diuresed at least 30 L and was feeling back to his baseline in terms of his breathing and his fluid status. He had been working with PT/OT and was beginning to walk in the halls. The patient was anxious to return home. Dr. Lorenzo suggested that the patient be worked up a little further to investigate why liver enzymes were not returning back to the patient's original baseline upon admission. Advising us to draw a ferritin level as well as repeat hepatitis B and C labs. The patient's ferritin was noted to be very high in September of 2019, and workup for hemochromatosis was done including genetic testing, which was found to be negative. Dr. Lorenzo suggested that if ferritin is high now to consider consulting GI for liver biopsy. Also an option for the patient is to transfer to [facility] to see Dr. Carrasco for further treatment of his pulmonary hypertension and right heart failure. The patient could be transferred from the hospital or see him as outpatient if he chooses to go that route. Dr. Lorenzo feels the patient may be dependent upon milrinone going forward and may need to get in touch with infusion clinic and home health to help with getting milrinone drip set up for outpatient at home. It is very important that per the patient's future help that he completely cease all alcohol consumption. Job ID: [id number] [facility]
[2020-09-18] MEDS: Bumetanide 1 MG TAB PO SCH (16:24)
[2020-09-19 04:47] LABS: ALT (SGPT) 279 U/L (8-55); AST (SGOT) 125 U/L (5-34); Alkaline Phosphatase 260 U/L (40-110); Anion Gap 12 mmol/L (10-20); BUN (Urea Nitrogen) 19 mg/dL (8.9-20.6); Bilirubin, Total 0.9 mg/dL (0.2-1.2); Calc. Creatinine Clearance 271 mL/min (70-130); Calcium 8.7 mg/dL (7.8-10.44); Carbon Dioxide 29 mmol/L (22-29); Chloride 100 mmol/L (98-107); Globulin 3.5 g/dL (2.4-3.5); Glucose 100 mg/dL (70-105); Magnesium 1.7 mg/dL (1.6-2.6); Potassium 3.9 mmol/L (3.5-5.1); Protein, Total 6.5 g/dL (6.0-8.3); Sodium 137 mmol/L (136-145)
--- NOTE | 2020-09-19 06:06 | PDOC.FM ---
- Subjective Subjective: Patient is resting comfortably in bed, receiving nebulizer treatment. States that he slept well, no concerns. No chest pain, shortness of breath or abdominal pain. Per tele monitoring patient went into aflutter for 2 hours overnight, then converted back to sinus on his own. They did not give his metoprolol due to soft blood pressures. Patient was sleeping during this time. - Objective MAR Reviewed: Yes Vital Signs & Weight: Vital Signs (12 hours) Temp Pulse Resp BP BP BP Pulse Ox 09/19/20 05:34 84 104/54 L 09/19/20 03:53 98.1 F 83 17 94/51 L 98 09/19/20 01:41 21 H 09/19/20 00:00 97 09/18/20 22:43 120 H 20 99 09/18/20 20:48 89 121/59 L 09/18/20 20:00 98.1 F 89 20 122/63 95 Weight Admit Weight 181 kg Weight 162.439 kg Most Recent Monitor Data Heart Rate from ECG 87 NIBP 128/56 NIBP BP-Mean 80 Respiration from ECG 28 SpO2 96 I&O: 09/17/20 09/18/20 09/19/20 06:59 06:59 06:59 Intake Total 1389 1217 1780 Output Total 3623 8122 9620 Balance -0403 -8032 -5036 Result Diagrams: 09/14/20 04:31 09/19/20 03:52 Phys Exam - Physical Examination Constitutional: NAD HEENT: PERRLA, moist MMs minimal end exp wheezing heart on ant lung jacques Cardiovascular: RRR, no significant murmur Gastrointestinal: soft, non-tender, positive bowel sounds Musculoskeletal: edema present Neurological: non-focal Psychiatric: normal affect, A&O x 3 Skin: no rash Dx/Plan - Plan Plan: 50yo male with morbid obesity, COPD and CHF presents w/ increased swelling and SOB Acute Hypoxic Respiratory Failure 2/2 COPD exac vs CHF exac -duonebs jeb q8h, prednisone (09/06-09/18) -continue IV lasix -I/O: -2.4L last 24 hours -needs cpap at night, will need outpt f/u to help set up -LO 04/2019 showed right side chamber enlargement -consulted Dr. Lorenzo: milrinone gtt until LFT's back to baseline, likely to need to be discharged on milrinone, will need HH -Started bumex 2mg bid, then decrease to 1mg bid Transaminitis - AST/ALT 125/279 - hx: EtOH abuse and HF - RUQ abdominal US: hepatosteatosis, splenomegaly, biliary sludge, cholelithiasis - GI consulted: due to alcoholic hepatitis and right heart failure, no intervention needed - milrinone drip increased after spike in LFTs, reduced today - Ferritin ordered --78, unlikely hemochromatosis A flutter s/p ablation - on eliquis 5mg bid - Dr. Lorenzo recs as above - consulted Dr Francisco: continue oral antiarrhythmic, oral anticoagulation, will need to lose weight to be candidate for ablation in future - replace K and Mg as needed - will discuss with Dr. Lorenzo possibily increasing milrinone in order to increase sotalol due to aflutter episode overnight Diarrhea -resolved Hyponatremia, resolved -Na 137 -this seems to be a chronic issue, could be 2/2 to alcohol consumption -continue to monitor UTI, asymptomatic -UA + for leuks, bacteria -UCx: no growth -received rocephin x1 EtOH abuse -ASE protocol -on thiamine HFpEF -continue with home meds -Bumex 2mg BID - Dr. Lorenzo consulted, appreciate recs, as above -echo: EF 55-60%, poor quality due to body habitus -monitor I/O, daily weights Lymphedema - Chronic condition - Monitor skin for breakdown Dispo: continue diuresis on tele, will continue to f/u Dr. Lorenzo's recs
[2020-09-19] MEDS ORDERED: Magnesium 2 GM/50 ML 2 GM in Premix Bag 1 BAG IVPB SCH (08:00)
[2020-09-19] MEDS: Bumetanide 1 MG TAB PO SCH ×2 (08:17→16:40)
[2020-09-19] MEDS: Cyanocobalamin (Vitamin B-12) 1,000 MCG TAB PO SCH (08:49)
[2020-09-19] MEDS: Polyethylene Glycol 3350 17 GM Packet PO SCH (08:49)
[2020-09-19] MEDS: Multivitamin W/ Minerals 1 TAB PO SCH (08:50)
[2020-09-19] MEDS: Potassium Chloride 20 MEQ TAB PO SCH ×2 (08:50→16:40)
[2020-09-19] MEDS: Magnesium Oxide 400 MG TAB PO SCH ×2 (08:50→20:40)
[2020-09-19] MEDS: Thiamine 100 MG TAB PO SCH (08:50)
[2020-09-19] MEDS: Spironolactone 25 MG TAB PO SCH (08:50)
[2020-09-19] MEDS: Sotalol HCl 80 MG TAB PO SCH ×2 (08:51→20:39)
[2020-09-19] MEDS: Apixaban 5 MG TAB PO SCH ×2 (08:51→20:40)
[2020-09-19] MEDS: Folic Acid 1 MG TAB PO SCH (08:51)
[2020-09-19] MEDS: AcetaZOLAMIDE 250 MG TAB PO SCH (08:52)
[2020-09-19] MEDS: Aspirin 81 mg Enteric Coated Tablet PO SCH (09:28)
--- NOTE | 2020-09-19 10:26 | PRG ---
DATE OF SERVICE: 09/19/2020 SUBJECTIVE: Mr. Morgan has been improving with milrinone. He is able to walk again. He is able to walk down the [place] and back. He also felt like that his legs again are getting a lot smaller. He could notice lots of fluid being removed, he is quite pleased with that. However, he does want to go home sometime soon. He felt like an atrial fibrillation/atrial flutter palpitation occurring about an hour after he has taken his Bumex in the afternoon. This was confirmed at the telemetry monitoring. Overall, he said he feels a lot better. He wants to go when it is possible, but he understands it may take some time. The need for chronic milrinone was discussed. It has been shown that with milrinone, his liver function gets better, but without milrinone or decreased milrinone, his liver enzymes increases. He seemed to be able to accept this possibility. REVIEW OF SYSTEMS: GENERAL: There is no fever, chills, or productive cough; however, he does have some chronic dry cough, it is less now. HEENT. There is no change in vision, hearing, or swallowing. PULMONARY: See HPI. Overall, he is breathing better. CARDIAC: He does feel palpitations when they come on. GI: There is no nausea, vomiting, or diarrhea. : He actually uses a PureWick. MUSCULOSKELETAL: He does not complain of joint or muscular pains. INTEGUMENT: There are no skin breakdowns; however, he noticed that he is losing quite a bit of fluid, his legs are getting a lot smaller. NEUROLOGIC: There are no focal deficits or weaknesses. MEDICATIONS: 1. Acetazolamide 250 mg daily. 2. Albuterol/ipratropium nebs q.8 hours. 3. Apixaban 5 mg twice a day. 4. Aspirin 81 mg daily. 5. Bumex 2 mg p.o. b.i.d. 6. Vitamin B12 of 2500 mcg daily. 7. Folic acid 1 mg daily. 8. Multivitamin one tablet. 9. Toprol-XL 25 mg q.12 hours. 10. Metoprolol tartrate 5 mg IV q.8 hours p.r.n. for heart rate greater than 150. 11. Milrinone currently at 0.25 mcg/kg/minute. 12. Protonix 40 mg q.a.m. 13. MiraLAX 17 g daily. 14. K-Dur 20 mEq b.i.d. 15. Sotalol 120 mg p.o. q.12 hours. 16. Spironolactone 25 mg daily. His telemetry was reviewed. He is currently in sinus rhythm; however, yesterday afternoon around 5, there are bouts of atrial flutter/atrial fibrillation pattern with rate approximately about 150. OBJECTIVE: VITAL SIGNS: His latest vitals are heart rate 84 and blood pressure 104/54. GENERAL: He is alert and conversational, resting comfortably in bed on 2 L oxygen. HEENT: Show EOMI. Oropharynx is benign with moist mucosa. NECK: His JVP is elevated about to his earlobe, this is at least 13 or 14 cm. PULMONARY: There are significant crackles most prominent in the left base. CARDIAC: Regular rate and rhythm with normal S1 and S2. There is 2/6 holosystolic murmur about the apex. ABDOMEN: Distended, soft, and nontender. Positive bowel sounds. EXTREMITIES: Lower extremities, he has a very large lower extremity; however, from his knee and below towards his feet diameter has greatly decreased since the last week, but there are still pitting edema. LABORATORY DATA: His chemistry shows sodium 137, potassium 3.9, BUN 19, and creatinine 0.76. His ALT is decreasing from 317 down through 279, his AST is decreasing from 148 down to 125, and his total bilirubin is normalized at 0.9. His ferritin is actually at 71.89. His magnesium today is low at 1.7. ASSESSMENT: This is a 50-year-old gentleman has a host of problems. First, most likely it is right ventricular failure. This right ventricular failure is most likely due to pulmonary hypertension and obesity syndrome. This is evidenced by the need for milrinone. As soon as milrinone drops below 0.25, his liver enzymes increases. This is likely due to congestion. He also has qmejgqrqn-cc-keqkhjs atrial fibrillation/atrial flutter that is very sensitive to loss of electrolyte as illustrated by his history, about 1 hour after he takes his diuretics, he will go into atrial fibrillation/atrial flutter, this likely due to loss of electrolytes. He has alcoholic-induced liver dysfunction. So consequence of this his liver is very sensitive to insults. Lastly, he is very obese. Please see the following for my recommendations. RECOMMENDATIONS: 1. Continue milrinone at 0.25 mcg/kg/minute. He will likely need to have this long-term due to right ventricular failure. His final dose is still to be determined. 2. Increase sotalol to 160 mg p.o. q.12 hours. This was discussed with Dr. Francisco. 3. Please give magnesium sulfate 2 g IV one dose now. 4. Please provide magnesium supplement 800 mg p.o. q.12 hours. 5. Please keep his potassium above 4 and keep magnesium above 2. He is very sensitive to changing electrolytes. By keeping these electrolytes in good range, then he can avoid atrial fibrillation/atrial flutter. 6. We will need to arrange for long-term milrinone infusion. The final dose is yet to be determined. I suspect, he will probably need 0.3 or 0.375 mcg/kg/minute; however, we cannot reach that dose until sotalol at 160 twice a day has been reached for least 24 hours. It has been a pleasure taking care of Mr. Morgan. If you have any questions, please give me a call. This visitation time is about 50 minutes that include personally performing history and physical, coordinating care with Dr. Francisco and primary team, and counseling and explaining to the patient. Job ID: [id number] [facility]
--- NOTE | 2020-09-19 11:29 | PRG ---
DATE OF SERVICE: 09/19/2020 Mr. Morgan is a 50-year-old man, admitted with acute hypoxic respiratory failure secondary to COPD and heart failure exacerbation. He is looking and feeling much better. He has had a transaminitis worked up and is likely due to hepatic congestion from his heart failure. Dr. Lorenzo has been on board and we appreciate his input. Clinically, Mr. Morgan is improved. Job ID: [id number]
--- NOTE | 2020-09-19 16:20 | PDOC.EP ---
- Subjective Date: 09/19/20 Time: 10:00 Interval History: Feeling fair. he does not endorse any heart racing or palpitations - Review of Systems Constitutional: reports: weakness. denies: chills, fever Respiratory: reports: shortness of breath. denies: cough, hemoptysis Cardiology: denies: chest pain, edema, heart racing Gastrointestinal: denies: abdominal pain, constipation, diarrhea - Objective Allergies/Adverse Reactions: Allergies Allergy/AdvReac Type Severity Reaction Status Date / Time warfarin Allergy Rash Verified 09/07/20 06:16 Current Medications Acetazolamide (Acetazolamide 250 Mg Tab) 250 mg PO DAILY [facility] Last Admin: 09/19/20 08:52 Dose: 250 mg Documented by: Albuterol/Ipratropium (Ipratropium/Albuterol Sulfate 3 Ml Neb) 3 ml NEB [id number] PRN PRN Reason: SOB &/or Wheezing Albuterol/Ipratropium (Ipratropium/Albuterol Sulfate 3 Ml Neb) 3 ml NEB [id number] [facility] Last Admin: 09/19/20 14:30 Dose: 3 ml Documented by: Apixaban (Apixaban 5 Mg Tab) 5 mg PO BID [facility] Last Admin: 09/19/20 08:51 Dose: 5 mg Documented by: Aspirin (Aspirin 81 Mg Enteric Coated Tablet) 81 mg PO DAILY [facility] Last Admin: 09/19/20 09:28 Dose: 81 mg Documented by: Bumetanide (Bumetanide 1 Mg Tab) 2 mg PO BID-AC [facility] Last Admin: 09/19/20 08:17 Dose: 2 mg Documented by: Cyanocobalamin (Cyanocobalamin (Vitamin B-12) 1,000 Mcg Tab) 2,500 mcg PO DAILY [facility] Last Admin: 09/19/20 08:49 Dose: 2,500 mcg Documented by: Folic Acid (Folic Acid 1 Mg Tab) 1 mg PO DAILY [facility] Last Admin: 09/19/20 08:51 Dose: 1 mg Documented by: Milrinone Lactate/Dextrose (Milrinone Lactate/D5w) 100 mls @ 13.485 mls/hr IVPB INF [facility] Last Admin: 09/19/20 13:32 Dose: 100 mls Documented by: Iron/Minerals/Multivitamins (Multivitamin W/ Minerals 1 Tab) 1 tab PO DAILY [facility] Last Admin: 09/19/20 08:50 Dose: 1 tab Documented by: Magnesium Oxide (Magnesium Oxide 400 Mg Tab) 800 mg PO BID [facility] Last Admin: 09/19/20 08:50 Dose: 800 mg Documented by: Metoprolol Succinate (Metoprolol Succinate Xl 25 Mg Tab) 25 mg PO Q12HR [facility] Last Admin: 09/19/20 08:51 Dose: 25 mg Documented by: Metoprolol Tartrate (Metoprolol Tartrate 5 Mg/5 Ml Vial) 5 mg IVP Q8H PRN PRN Reason: HR>130 Last Admin: 09/11/20 09:34 Dose: 5 mg Documented by: Ondansetron HCl (Ondansetron Odt 4 Mg Tab) 4 mg PO Q6H PRN PRN Reason: Nausea/Vomiting Ondansetron HCl (Ondansetron Pf 4 Mg/2 Ml Vial) 4 mg IVP Q6H PRN PRN Reason: Nausea/Vomiting Pantoprazole Sodium (Pantoprazole 40 Mg Tab) 40 mg PO [facility] Last Admin: 09/19/20 09:26 Dose: 40 mg Documented by: Polyethylene Glycol (Polyethylene Glycol 3350 17 Gm Packet) 17 gm PO DAILY [facility] Last Admin: 09/19/20 08:49 Dose: 17 gm Documented by: Potassium Chloride (Potassium Chloride 20 Meq Tab) 20 meq PO BID-[facility] Last Admin: 09/19/20 08:50 Dose: 20 meq Documented by: Sodium Chloride (Flush - Normal Saline 10 Ml Syringe) 10 ml IVF PRN PRN PRN Reason: Saline Flush Last Admin: 09/17/20 09:30 Dose: 10 ml Documented by: Sotalol HCl (Sotalol Hcl 80 Mg Tab) 160 mg PO Q12HR [facility] Last Admin: 09/19/20 08:51 Dose: 160 mg Documented by: Spironolactone (Spironolactone 25 Mg Tab) 25 mg PO [facility] Last Admin: 09/19/20 08:50 Dose: 25 mg Documented by: Thiamine HCl (Thiamine 100 Mg Tab) 100 mg PO DAILY [facility] Last Admin: 09/19/20 08:50 Dose: 100 mg Documented by: Vital Signs & Weight: Vital Signs Temp Pulse Resp BP BP BP Pulse Ox 09/19/20 14:30 82 20 96 09/19/20 11:25 97.8 F 100 14 133/93 H 96 09/19/20 08:51 86 124/59 L 09/19/20 07:43 98.3 F 83 15 108/62 95 09/19/20 07:08 92 L 09/19/20 07:07 86 20 92 L 09/19/20 05:34 84 104/54 L Admit Weight 399 lb 0.587 oz Weight 358 lb 1.875 oz I/O: I/O 09/18/20 09/19/20 09/20/20 06:59 06:59 06:59 Intake Total 1217 1780 477 Output Total 4313 3755 Balance -2668 -7501 477 - Quality Measures Condition: Atrial Fibrillation/Flutter (hx or current) CV meds: Eliquis: Yes - Physical Exam General: alert & oriented x3, no apparent distress, speech clear, affect appropriate. negative: appears well HEENT: mucus membranes moist, normocephaly Neck: supple neck, midline trachea Cardiology: regular rate and rhythm, no murmur, PMI nondisplaced Lungs: no wheeze, rales, rhonchi, decreased breath sounds Neurology: cranial nerve 2-12 intact, grossly intact, no lateralizing findings - Labs Result Diagrams: 09/14/20 04:31 09/19/20 03:52 - EKG Interpretation EKG Method: Telemetry EKG shows: Sinus rhythm - Assessment/Plan Assessment/Plan: IMPRESSION: 1. Paroxysmal atrial fibrillation/atypical atrial flutter with rapid ventricular response, responsive to sotalol. 2. Diastolic congestive heart failure, left ventricular ejection fraction 55%. 3. Hypokalemia and mild hypomagnesemia at 1.9. 4. Morbid obesity. 5. Chronic lymphedema. 6. Transaminitis. Had recurrent PxAF and sotalol was increased to 160mg BID. ECGs 2-3 hrs post sotalol to monitor QTc with increased dose Labs in AM to monitor electrolytes. Goal: K>4.0 and Mag >2.0 On eliquis for OAC. Addendum - Attending - Attending Attestation Date/Time: 09/19/20 1708 I personally evaluated the patient and discussed the management with mrs Romero. I agree with the History, Examination, Assessment and Plan documented above with any addition or exceptions noted below. Parox afib, recurent. Agree with dr Lorenzo on increasing sotlaol ocntinue monit oring QTc.
--- NOTE | 2020-09-19 16:55 | EKG ---
Test Reason : STAT Blood Pressure : / mmHG Vent. Rate : 143 BPM Atrial Rate : 143 BPM P-R Int : 114 ms QRS Dur : 072 ms QT Int : 278 ms P-R-T Axes : 029 036 038 degrees QTc Int : 429 ms Atrial tachycardia with 2:1 conduction and aberrant conduction abnormal EKG When compared with ECG of 14-SEP-2020 22:56, (Unconfirmed) Premature ventricular complexes are now Present Vent. rate has increased BY [address] Mike LOWE (3) on 09/19/2020 4:55:11 PM Referred By: WALTER Confirmed By:DR. Mike LOWE
[2020-09-20 04:52] LABS: Hemoglobin 12.1 g/dL (14.0-18.0); Platelet Count 219 thou/uL (130-400)
[2020-09-20 05:20] LABS: ALT (SGPT) 215 U/L (8-55); AST (SGOT) 93 U/L (5-34); Alkaline Phosphatase 256 U/L (40-110); Anion Gap 15 mmol/L (10-20); BUN (Urea Nitrogen) 17 mg/dL (8.9-20.6); Bilirubin, Total 0.9 mg/dL (0.2-1.2); Calc. Creatinine Clearance 263 mL/min (70-130); Calcium 8.7 mg/dL (7.8-10.44); Carbon Dioxide 26 mmol/L (22-29); Chloride 98 mmol/L (98-107); Globulin 3.8 g/dL (2.4-3.5); Glucose 128 mg/dL (70-105); Magnesium 1.9 mg/dL (1.6-2.6); Potassium 3.5 mmol/L (3.5-5.1); Protein, Total 6.8 g/dL (6.0-8.3); Sodium 135 mmol/L (136-145)
--- NOTE | 2020-09-20 06:27 | PDOC.FM ---
- Subjective Subjective: Patient is resting comfortably in bed. No acute concerns. No events overnight. Denies shortness of breath, chest pain or abdominal pain. - Objective MAR Reviewed: Yes Vital Signs & Weight: Vital Signs (12 hours) Temp Pulse Resp BP Pulse Ox 09/20/20 03:54 99.5 F 80 20 102/57 L 100 09/20/20 00:00 81 98/55 L 09/19/20 22:17 85 23 H 99 09/19/20 21:00 23 H 09/19/20 20:00 97.3 F L 83 18 119/59 L 96 Weight Admit Weight 181 kg Weight 163 kg Most Recent Monitor Data Heart Rate from ECG 87 NIBP 128/56 NIBP BP-Mean 80 Respiration from ECG 28 SpO2 96 I&O: 09/18/20 09/19/20 09/20/20 06:59 06:59 06:59 Intake Total 1217 1780 2372 Output Total 3675 4170 3630 Balance -7928 -2390 -778 Result Diagrams: 09/20/20 04:32 09/20/20 04:32 Phys Exam - Physical Examination Constitutional: NAD HEENT: PERRLA, moist MMs Respiratory: no wheezing, clear to auscultation bilateral Cardiovascular: RRR Gastrointestinal: soft, non-tender, positive bowel sounds Musculoskeletal: edema present Neurological: non-focal Psychiatric: A&O x 3 Skin: no rash Dx/Plan - Plan Plan: 50yo male with morbid obesity, COPD and CHF presents w/ increased swelling and SOB Acute Hypoxic Respiratory Failure 2/2 COPD exac vs CHF exac -duonebs jeb q8h, prednisone (09/06-09/18) -continue IV lasix -I/O: -778mL last 24 hours -needs cpap at night, will need outpt f/u to help set up -LO 04/2019 showed right side chamber enlargement -consulted Dr. Lorenzo: milrinone gtt until LFT's back to baseline, likely to need to be discharged on milrinone, will need HH vs SNF -Started bumex 2mg bid Transaminitis - AST/ALT 93/215 - hx: EtOH abuse and HF - RUQ abdominal US: hepatosteatosis, splenomegaly, biliary sludge, cholelithiasis - GI consulted: due to alcoholic hepatitis and right heart failure, no i ntervention needed - Ferritin ordered --78, unlikely hemochromatosis - will likely need milrinone gtt when he leaves to prevent liver enzymes from increasing A flutter s/p ablation - on eliquis 5mg bid - Dr. Lorenzo recs as above - consulted Dr Francisco: continue oral antiarrhythmic, oral anticoagulation, will need to lose weight to be candidate for ablation in future - replace K and Mg as needed - Dr. Lorenzo increased sotalol to 160 q12h (09/19), spoke with Dr. Francisco who agreed, no overnight episodes of aflutter/afib Diarrhea -resolved Hyponatremia, resolved -Na 137 -this seems to be a chronic issue, could be 2/2 to alcohol consumption -continue to monitor UTI, asymptomatic -UA + for leuks, bacteria -UCx: no growth -received rocephin x1 EtOH abuse -ASE protocol -on thiamine HFpEF -continue with home meds -Bumex 2mg BID - Dr. Lorenzo consulted, appreciate recs, as above -echo: EF 55-60%, poor quality due to body habitus -monitor I/O, daily weights Lymphedema - Chronic condition - Monitor skin for breakdown Dispo: continue diuresis on tele, will continue to f/u Dr. Lorenzo's recs Addendum - Attending - Attending Attestation Date/Time: 09/20/20 5732 I personally evaluated the patient and discussed the management with the team. I agree with the History, Examination, Assessment and Plan documented above with any addition or exceptions noted below. Await for Dr. Lorenzo recs.
[2020-09-20] MEDS ORDERED: Potassium Chloride 20 MEQ TAB PO SCH (08:45)
[2020-09-20] MEDS: Apixaban 5 MG TAB PO SCH ×2 (09:19→21:06)
[2020-09-20] MEDS: Bumetanide 1 MG TAB PO SCH ×2 (09:19→17:05)
[2020-09-20] MEDS: AcetaZOLAMIDE 250 MG TAB PO SCH (09:19)
[2020-09-20] MEDS: Spironolactone 25 MG TAB PO SCH (09:19)
[2020-09-20] MEDS: Cyanocobalamin (Vitamin B-12) 1,000 MCG TAB PO SCH (09:19)
[2020-09-20] MEDS: Thiamine 100 MG TAB PO SCH (09:20)
[2020-09-20] MEDS: Multivitamin W/ Minerals 1 TAB PO SCH (09:20)
[2020-09-20] MEDS: Magnesium Oxide 400 MG TAB PO SCH ×2 (09:20→21:06)
[2020-09-20] MEDS: Sotalol HCl 80 MG TAB PO SCH ×2 (09:20→22:52)
[2020-09-20] MEDS: Aspirin 81 mg Enteric Coated Tablet PO SCH (09:20)
[2020-09-20] MEDS: Folic Acid 1 MG TAB PO SCH (09:20)
[2020-09-20] MEDS: Polyethylene Glycol 3350 17 GM Packet PO SCH (09:21)
[2020-09-20] MEDS: Potassium Chloride 20 MEQ TAB PO SCH ×2 (09:21→17:05)
--- NOTE | 2020-09-20 11:17 | PRG ---
DATE OF SERVICE: 09/20/2020 SERVICE: Advanced Heart Failure Cardiology Consulting Service. SUBJECTIVE: Mr. Nikita Morgan had a good day. He feels well. He is breathing easy. He said he was able to ambulate down the hallway and back. He did notice his urine output slowing down some, but he is still net negative fluid balance. However, he drank a little bit much fluid yesterday. Yesterday, he did not have any feeling of palpitation. REVIEW OF SYSTEMS: GENERAL: There is no fever, chills, or productive cough. He has increased energy level. HEENT: There is no change in vision, hearing, or swallowing. PULMONARY: He is breathing easier. CARDIAC: There is no chest pain, palpitations, or syncope. GASTROINTESTINAL: There is no nausea, vomiting, or diarrhea. GENITOURINARY: He apparently is able to go on his own. MUSCULOSKELETAL: There are no complaints of new muscle pains or joint pains. INTEGUMENT: There are no new skin breakdown. NEUROLOGIC: There are no new focal deficits or weaknesses. MEDICATIONS: Include, 1. Apixaban 5 mg b.i.d. 2. Aspirin 81 mg daily. 3. Bumex at 2 mg b.i.d. 4. Vitamin B12 2500 mcg daily. 5. Folic acid at 1 mg daily. 6. Albuterol/ipratropium nebs q.8 hours. 7. Magnesium oxide 800 mg twice a day. 8. Toprol-XL 25 mg p.o. q.12 hours. 9. Milrinone currently at 0.25 mcg/kg/minute. 10. Multivitamin one tablet daily. 11. Protonix 40 mg daily. 12. Potassium chloride (K-Dur) 20 mEq twice per day. 13. Sotalol 160 mg p.o. q.12 hours. 14. Spironolactone 25 mg daily. OBJECTIVE: TELEMETRY: Reviewed. He is maintaining sinus rhythm. There are no atrial fibrillation or atrial flutter in last 24 hours. VITAL SIGNS: His systolic blood pressure ranged from 102 to 133. His diastolic blood pressure ranged from 57 to 66. His heart rate is about 80s. GENERAL: He is alert, conversational, energetic, relaxing, reclining in bed. HEENT: Show EOMI. Oropharynx is benign with moist mucosa. NECK: His JVP continues to be elevated at least 12 cm. PULMONARY: There are bibasilar crackles. CARDIAC: Regular rate and rhythm with normal S1 and S2. There is a 2/6 holosystolic murmur near the apex. ABDOMEN: Very large, distended, soft, and nontender. Positive bowel sounds. EXTREMITIES: Lower extremities are looser now with loose skin. However, he still has quite a bit of edema from his hips to thighs towards his feet. LABORATORY VALUES: This morning, sodium 135, potassium 3.5, chloride 98, bicarb at 26, BUN is 17, creatinine 0.78, magnesium 1.9. His AST is decreased down to 93 and his ALT is decreasing down to 215; however, his alkaline phosphatase is still elevated at 256. This is better than yesterday. ASSESSMENT: 50-year-old gentleman has a multitude of problems. First, he has a right ventricular failure that is needing Milrinone augmentation. By improving his right ventricular function, it decongests the liver. He has aqzguckuz-np-gejpxft atrial fibrillation and atrial flutter. Sotalol 160 mg twice a day plus Toprol-XL plus correction of electrolytes is helping with maintaining sinu rhythm. We need to continue the potassium above 4 and magnesium at 2. Although good progress has been made in correcting his congestive hepatic dysfunction. He also has baseline steatosis. He could be reaching the limit of what low dose milrinone at 0.25 mcg/kg/min can do. Please see the following for my recommendations. RECOMMENDATIONS: 1. Increase milrinone to 0.375 mcg/kg/minute. 2. Increase K-Dur to 40 mEq p.o. twice per day. 3. Thank you for supplementing magnesium. 4. I will contact the infusion company to see if milrinone is doable. 5. Please consult Case Management about him. 6. Strongly advised the patient never ever to drink alcohol again. 7. We will also need to consult the patient on how to lose weight. Losing weight will be extremely beneficial for him. It has been a pleasure taking care of Mr. Morgan. If any questions, please give me a call. Time for this visit is 40 minutes. Job ID: [id number] [facility]
[2020-09-20 12:10] LABS: Hep C PCR-Quant HCV Not Detected IU/mL (.)
--- NOTE | 2020-09-20 12:40 | EKG ---
Test Reason : Blood Pressure : / mmHG Vent. Rate : 080 BPM Atrial Rate : 080 BPM P-R Int : 140 ms QRS Dur : 084 ms QT Int : 418 ms P-R-T Axes : 035 036 043 degrees QTc Int : 482 ms Normal sinus rhythm Prolonged QT Abnormal ECG When compared with ECG of 18-SEP-2020 21:27, Previous ECG has undetermined rhythm, needs review Confirmed by DR. Mike LOWE (3) on 09/20/2020 12:40:17 PM Referred By: WALTER Confirmed By:DR. Mike LOWE
[2020-09-20 14:11] LABS: HBV as IU/mL HBV DNA not detected IU/mL (.)
--- NOTE | 2020-09-20 16:25 | PDOC.EP ---
- Subjective Date: 09/20/20 Time: 08:00 Interval History: Stable rhythm overnight. No new events. - Review of Systems Constitutional: reports: weakness. denies: chills, fever Respiratory: denies: cough, dry, shortness of breath, SOB with excertion Cardiology: denies: edema, heart racing, light headedness Gastrointestinal: denies: abdominal pain, constipation Musculoskeletal: denies: unstable gait, falls - Objective Allergies/Adverse Reactions: Allergies Allergy/AdvReac Type Severity Reaction Status Date / Time warfarin Allergy Rash Verified 09/07/20 06:16 Current Medications Acetazolamide (Acetazolamide 250 Mg Tab) 250 mg PO DAILY [facility] Last Admin: 09/20/20 09:19 Dose: 250 mg Documented by: Albuterol/Ipratropium (Ipratropium/Albuterol Sulfate 3 Ml Neb) 3 ml NEB [id number] PRN PRN Reason: SOB &/or Wheezing Albuterol/Ipratropium (Ipratropium/Albuterol Sulfate 3 Ml Neb) 3 ml NEB [id number] [facility] Last Admin: 09/20/20 15:02 Dose: 3 ml Documented by: Apixaban (Apixaban 5 Mg Tab) 5 mg PO BID [facility] Last Admin: 09/20/20 09:19 Dose: 5 mg Documented by: Aspirin (Aspirin 81 Mg Enteric Coated Tablet) 81 mg PO DAILY [facility] Last Admin: 09/20/20 09:20 Dose: 81 mg Documented by: Bumetanide (Bumetanide 1 Mg Tab) 2 mg PO BID-AC [facility] Last Admin: 09/20/20 09:19 Dose: 2 mg Documented by: Cyanocobalamin (Cyanocobalamin (Vitamin B-12) 1,000 Mcg Tab) 2,500 mcg PO DAILY [facility] Last Admin: 09/20/20 09:19 Dose: 2,500 mcg Documented by: Folic Acid (Folic Acid 1 Mg Tab) 1 mg PO DAILY [facility] Last Admin: 09/20/20 09:20 Dose: 1 mg Documented by: Milrinone Lactate/Dextrose (Milrinone Lactate/D5w) 100 mls @ 20.228 mls/hr IVPB INF [facility] Last Admin: 09/20/20 12:17 Dose: 100 mls Documented by: Iron/Minerals/Multivitamins (Multivitamin W/ Minerals 1 Tab) 1 tab PO DAILY [facility] Last Admin: 09/20/20 09:20 Dose: 1 tab Documented by: Magnesium Oxide (Magnesium Oxide 400 Mg Tab) 800 mg PO BID [facility] Last Admin: 09/20/20 09:20 Dose: 800 mg Documented by: Metoprolol Succinate (Metoprolol Succinate Xl 25 Mg Tab) 25 mg PO Q12HR [facility] Last Admin: 09/20/20 09:19 Dose: 25 mg Documented by: Metoprolol Tartrate (Metoprolol Tartrate 5 Mg/5 Ml Vial) 5 mg IVP Q8H PRN PRN Reason: HR>130 Last Admin: 09/11/20 09:34 Dose: 5 mg Documented by: Ondansetron HCl (Ondansetron Odt 4 Mg Tab) 4 mg PO Q6H PRN PRN Reason: Nausea/Vomiting Ondansetron HCl (Ondansetron Pf 4 Mg/2 Ml Vial) 4 mg IVP Q6H PRN PRN Reason: Nausea/Vomiting Pantoprazole Sodium (Pantoprazole 40 Mg Tab) 40 mg PO PENDING SALE TO [facility] Last Admin: 09/20/20 09:20 Dose: 40 mg Documented by: Polyethylene Glycol (Polyethylene Glycol 3350 17 Gm Packet) 17 gm PO DAILY [facility] Last Admin: 09/20/20 09:21 Dose: Not Given Documented by: Potassium Chloride (Potassium Chloride 20 Meq Tab) 40 meq PO BID-[facility] Sodium Chloride (Flush - Normal Saline 10 Ml Syringe) 10 ml IVF PRN PRN PRN Reason: Saline Flush Last Admin: 09/17/20 09:30 Dose: 10 ml Documented by: Sotalol HCl (Sotalol Hcl 80 Mg Tab) 160 mg PO Q12HR [facility] Last Admin: 09/20/20 09:20 Dose: 160 mg Documented by: Spironolactone (Spironolactone 25 Mg Tab) 25 mg PO QAM-[facility] Last Admin: 09/20/20 09:19 Dose: 25 mg Documented by: Thiamine HCl (Thiamine 100 Mg Tab) 100 mg PO DAILY [facility] Last Admin: 09/20/20 09:20 Dose: 100 mg Documented by: Vital Signs & Weight: Vital Signs Temp Pulse Pulse Pulse Resp BP BP 09/20/20 15:31 98.4 F 86 17 09/20/20 15:02 85 20 09/20/20 12:15 98.1 F 89 16 09/20/20 10:15 95 86 134/78 122/64 09/20/20 09:14 98.2 F 90 18 09/20/20 07:44 09/20/20 07:42 80 20 BP Pulse Ox Pulse Ox Pulse Ox 09/20/20 15:31 104/64 96 09/20/20 15:02 97 09/20/20 12:15 127/69 95 09/20/20 10:15 99 99 09/20/20 09:14 114/61 97 09/20/20 07:44 92 L 09/20/20 07:42 92 L Admit Weight 399 lb 0.587 oz Weight 359 lb 5.655 oz I/O: I/O 09/19/20 09/20/20 09/21/20 06:59 06:59 06:59 Intake Total 1780 2372 Output Total 3257 3034 Balance -6460 -341 - Quality Measures Condition: Atrial Fibrillation/Flutter (hx or current) CV meds: Eliquis: Yes - Physical Exam General: alert & oriented x3 HEENT: mucus membranes moist, normocephaly Neck: supple neck, midline trachea Cardiology: regular rate and rhythm, no murmur, PMI nondisplaced Lungs: clear to auscultation, normal breath sounds, no wheeze, rales, rhonchi, decreased breath sounds Neurology: cranial nerve 2-12 intact, grossly intact, no lateralizing findings - Labs Result Diagrams: 09/20/20 04:32 09/20/20 04:32 - EKG Interpretation EKG Method: Telemetry EKG shows: Sinus rhythm - Assessment/Plan Assessment/Plan: IMPRESSION: 1. Paroxysmal atrial fibrillation/atypical atrial flutter with rapid ventricular response, responsive to sotalol. 2. Diastolic congestive heart failure, left ventricular ejection fraction 55%. 3. Hypokalemia and mild hypomagnesemia at 1.9. 4. Morbid obesity. 5. Chronic lymphedema. 6. Transaminitis. 09/19: Had recurrent PxAF and sotalol was increased to 160mg BID. ECGs 2-3 hrs post sotalol to monitor QTc with increased dose 09/20: SR overnight. Labs in AM to monitor electrolytes. Goal: K>4.0 and Mag >2.0 On eliquis for OAC.
[2020-09-20 17:33] LABS: Anion Gap 10 mmol/L (10-20); BUN (Urea Nitrogen) 18 mg/dL (8.9-20.6); Calc. Creatinine Clearance 245 mL/min (70-130); Carbon Dioxide 34 mmol/L (22-29); Chloride 97 mmol/L (98-107); Glucose 99 mg/dL (70-105); Sodium 137 mmol/L (136-145)
--- NOTE | 2020-09-20 19:42 | EKG ---
Test Reason : Blood Pressure : / mmHG Vent. Rate : 086 BPM Atrial Rate : 086 BPM P-R Int : 138 ms QRS Dur : 086 ms QT Int : 384 ms P-R-T Axes : 048 044 051 degrees QTc Int : 459 ms Normal sinus rhythm Normal ECG When compared with ECG of 10-SEP-2020 01:09, (Unconfirmed) Sinus rhythm has replaced Atrial flutter Vent. rate has decreased BY [address] elevation now present in Inferior leads Confirmed by DES PERALTA (2) on 09/20/2020 7:42:17 PM Referred By: NUBIA Confirmed By:DES PERALTA
--- NOTE | 2020-09-20 19:44 | EKG ---
Test Reason : ROUTINE Blood Pressure : / mmHG Vent. Rate : 079 BPM Atrial Rate : 079 BPM P-R Int : 142 ms QRS Dur : 086 ms QT Int : 406 ms P-R-T Axes : 036 040 041 degrees QTc Int : 465 ms Normal sinus rhythm Possible Left atrial enlargement Borderline ECG When compared with ECG of 12-SEP-2020 08:21, (Unconfirmed) No significant change was found Confirmed by DES PERALTA (2) on 09/20/2020 7:44:18 PM Referred By: TORY LAURENT Confirmed By:DES PERALTA
[2020-09-21 05:07] LABS: ALT (SGPT) 154 U/L (8-55); AST (SGOT) 66 U/L (5-34); Albumin 3.2 g/dL (3.5-5.0); Alkaline Phosphatase 248 U/L (40-110); Anion Gap 15 mmol/L (10-20); BUN (Urea Nitrogen) 17 mg/dL (8.9-20.6); Calc. Creatinine Clearance 248 mL/min (70-130); Carbon Dioxide 26 mmol/L (22-29); Chloride 99 mmol/L (98-107); Globulin 3.6 g/dL (2.4-3.5); Glucose 107 mg/dL (70-105); Magnesium 1.9 mg/dL (1.6-2.6); Protein, Total 6.8 g/dL (6.0-8.3); Sodium 136 mmol/L (136-145)
--- NOTE | 2020-09-21 06:47 | PDOC.FM ---
- Subjective Subjective: Patient is resting comfortably in bed. No concerns, no acute events overnight. Patient denies chest pain, shortness of breath, n/v and abdominal pain. - Objective MAR Reviewed: Yes Vital Signs & Weight: Vital Signs (12 hours) Temp Pulse Resp BP Pulse Ox 09/21/20 03:47 97.7 F 86 20 101/53 L 100 09/21/20 02:33 17 100 09/21/20 00:00 86 108/59 L 99 09/20/20 22:25 83 19 100 09/20/20 21:00 15 100 09/20/20 20:00 97.3 F L 93 18 112/58 L 94 L Weight Admit Weight 181 kg Weight 163 kg Most Recent Monitor Data Heart Rate from ECG 87 NIBP 128/56 NIBP BP-Mean 80 Respiration from ECG 28 SpO2 96 I&O: 09/19/20 09/20/20 09/21/20 06:59 06:59 06:59 Intake Total 1780 2372 1240 Output Total 4170 3150 1550 Balance -2390 -778 -310 Result Diagrams: 09/20/20 04:32 09/21/20 04:30 Phys Exam - Physical Examination Constitutional: NAD HEENT: PERRLA, moist MMs faint wheezing Cardiovascular: RRR, no significant murmur Gastrointestinal: soft, non-tender, positive bowel sounds Musculoskeletal: edema present Neurological: non-focal Psychiatric: normal affect, A&O x 3 Skin: no rash Dx/Plan - Plan Plan: Plan: 50yo male with morbid obesity, COPD and CHF presents w/ increased swelling and SOB Acute Hypoxic Respiratory Failure 2/2 COPD exac vs CHF exac -duonebs jeb q8h, prednisone (09/06-09/18) -continue IV lasix -I/O: -778mL last 24 hours -needs cpap at night, will need outpt f/u to help set up -[place] 04/2019 showed right side chamber enlargement -consulted Dr. Lorenzo: milrinone gtt until LFT's back to baseline, likely to need to be discharged on milrinone, will need HH vs SN --> 09/20: increased milrinone to .375mcg/kg/min, increased Kdurr to [id number] BID, Dr. Lorenzo plans to discuss with infusion company possible outpatient care, CM onboard -On bumex 2mg bid Transaminitis - AST/ALT 66/154 - hx: EtOH abuse and HF - RUQ abdominal US: hepatosteatosis, splenomegaly, biliary sludge, cholelithiasis - GI consulted: due to alcoholic hepatitis and right heart failure, no intervention needed - Ferritin ordered --78, unlikely hemochromatosis - will likely need milrinone gtt when he leaves to prevent liver enzymes from increasing A flutter s/p ablation - on eliquis 5mg bid - Dr. Lorenzo recs as above - consulted Dr Francisco: continue oral antiarrhythmic, oral anticoagulation, will need to lose weight to be candidate for ablation in future - replace K and Mg as needed - Dr. Lorenzo increased sotalol to 160 q12h (09/19), spoke with Dr. Francisco who agreed, 6 seconds of aflutter, and 25 seconds of afib overnight, asx Diarrhea -resolved Hyponatremia, resolved -Na 137 -this seems to be a chronic issue, could be 2/2 to alcohol consumption -continue to monitor UTI, asymptomatic -UA + for leuks, bacteria -UCx: no growth -received rocephin x1 EtOH abuse -ASE protocol -on thiamine HFpEF -continue with home meds -Bumex 2mg BID - Dr. Lorenzo consulted, appreciate recs, as above -echo: EF 55-60%, poor quality due to body habitus -monitor I/O, daily weights Lymphedema - Chronic condition - Monitor skin for breakdown Dispo: continue diuresis on tele, will continue to f/u Dr. Lorenzo's recs Addendum - Attending - Attending Attestation Date/Time: 09/21/20 3012 I personally evaluated the patient and discussed the management with Dr. Childs. I agree with the History, Examination, Assessment and Plan documented above with any addition or exceptions noted below. Scant basilar crackles, otherwise relatively unremarkable exam.
--- NOTE | 2020-09-21 07:10 | EKG ---
Test Reason : Blood Pressure : / mmHG Vent. Rate : 083 BPM Atrial Rate : 083 BPM P-R Int : 142 ms QRS Dur : 078 ms QT Int : 396 ms P-R-T Axes : 056 043 052 degrees QTc Int : 465 ms Normal sinus rhythm Right atrial enlargement When compared with ECG of 20-SEP-2020 01:35, (Unconfirmed) No significant change was found Confirmed by DR. Mike LOWE (3) on 09/21/2020 7:10:45 AM Referred By: LISANDRA DEY Confirmed By:DR. Mike LOWE
[2020-09-21] MEDS: Multivitamin W/ Minerals 1 TAB PO SCH (08:56)
[2020-09-21] MEDS: AcetaZOLAMIDE 250 MG TAB PO SCH (08:56)
[2020-09-21] MEDS: Cyanocobalamin (Vitamin B-12) 1,000 MCG TAB PO SCH (08:56)
[2020-09-21] MEDS: Bumetanide 1 MG TAB PO SCH ×2 (08:57→17:44)
[2020-09-21] MEDS: Magnesium Oxide 400 MG TAB PO SCH ×2 (08:57→20:19)
[2020-09-21] MEDS: Potassium Chloride 20 MEQ TAB PO SCH ×2 (08:57→17:44)
[2020-09-21] MEDS: Sotalol HCl 80 MG TAB PO SCH ×2 (08:58→20:19)
[2020-09-21] MEDS: Folic Acid 1 MG TAB PO SCH (08:58)
[2020-09-21] MEDS: Apixaban 5 MG TAB PO SCH ×2 (08:58→20:19)
[2020-09-21] MEDS: Thiamine 100 MG TAB PO SCH (08:58)
[2020-09-21] MEDS: Polyethylene Glycol 3350 17 GM Packet PO SCH (08:58)
[2020-09-21] MEDS: Spironolactone 25 MG TAB PO SCH (08:58)
[2020-09-21] MEDS: Aspirin 81 mg Enteric Coated Tablet PO SCH (08:58)
--- NOTE | 2020-09-21 11:03 | PDOC.EP ---
- Subjective Date: 09/21/20 Time: 11:08 Interval History: no new events or concerns overnight. he has been out of bed and is encouraged by this. - Review of Systems Constitutional: reports: weakness. denies: chills, fever, malaise, sweats Respiratory: reports: shortness of breath. denies: cough, pleuritic pain, sputum, wheezing Cardiology: denies: chest pain, heart racing, light headedness, orthopnea, palpitations Gastrointestinal: denies: abdominal pain, constipation, diarrhea Musculoskeletal: reports: unstable gait - Objective Allergies/Adverse Reactions: Allergies Allergy/AdvReac Type Severity Reaction Status Date / Time warfarin Allergy Rash Verified 09/07/20 06:16 Current Medications Acetazolamide (Acetazolamide 250 Mg Tab) 250 mg PO DAILY [facility] Last Admin: 09/21/20 08:56 Dose: 250 mg Documented by: Albuterol/Ipratropium (Ipratropium/Albuterol Sulfate 3 Ml Neb) 3 ml NEB [id number] PRN PRN Reason: SOB &/or Wheezing Albuterol/Ipratropium (Ipratropium/Albuterol Sulfate 3 Ml Neb) 3 ml NEB Q4FR-TT [facility] Last Admin: 09/21/20 10:56 Dose: Not Given Documented by: Apixaban (Apixaban 5 Mg Tab) 5 mg PO BID [facility] Last Admin: 09/21/20 08:58 Dose: 5 mg Documented by: Aspirin (Aspirin 81 Mg Enteric Coated Tablet) 81 mg PO DAILY [facility] Last Admin: 09/21/20 08:58 Dose: 81 mg Documented by: Bumetanide (Bumetanide 1 Mg Tab) 2 mg PO BID-AC [facility] Last Admin: 09/21/20 08:57 Dose: 2 mg Documented by: Cyanocobalamin (Cyanocobalamin (Vitamin B-12) 1,000 Mcg Tab) 2,500 mcg PO DAILY [facility] Last Admin: 09/21/20 08:56 Dose: 2,500 mcg Documented by: Folic Acid (Folic Acid 1 Mg Tab) 1 mg PO DAILY [facility] Last Admin: 09/21/20 08:58 Dose: 1 mg Documented by: Milrinone Lactate/Dextrose (Milrinone Lactate/D5w) 100 mls @ 20.228 mls/hr IVPB INF [facility] Last Admin: 09/21/20 06:51 Dose: 100 mls Documented by: Iron/Minerals/Multivitamins (Multivitamin W/ Minerals 1 Tab) 1 tab PO DAILY [facility] Last Admin: 09/21/20 08:56 Dose: 1 tab Documented by: Magnesium Oxide (Magnesium Oxide 400 Mg Tab) 800 mg PO BID [facility] Last Admin: 09/21/20 08:57 Dose: 800 mg Documented by: Metoprolol Succinate (Metoprolol Succinate Xl 25 Mg Tab) 25 mg PO Q12HR [facility] Last Admin: 09/21/20 08:58 Dose: 25 mg Documented by: Metoprolol Tartrate (Metoprolol Tartrate 5 Mg/5 Ml Vial) 5 mg IVP Q8H PRN PRN Reason: HR>130 Last Admin: 09/11/20 09:34 Dose: 5 mg Documented by: Ondansetron HCl (Ondansetron Odt 4 Mg Tab) 4 mg PO Q6H PRN PRN Reason: Nausea/Vomiting Ondansetron HCl (Ondansetron Pf 4 Mg/2 Ml Vial) 4 mg IVP Q6H PRN PRN Reason: Nausea/Vomiting Pantoprazole Sodium (Pantoprazole 40 Mg Tab) 40 mg PO QA-[facility] Last Admin: 09/21/20 08:58 Dose: 40 mg Documented by: Polyethylene Glycol (Polyethylene Glycol 3350 17 Gm Packet) 17 gm PO DAILY [facility] Last Admin: 09/21/20 08:58 Dose: Not Given Documented by: Potassium Chloride (Potassium Chloride 20 Meq Tab) 40 meq PO BID-[facility] Last Admin: 09/21/20 08:57 Dose: 40 meq Documented by: Sodium Chloride (Flush - Normal Saline 10 Ml Syringe) 10 ml IVF PRN PRN PRN Reason: Saline Flush Last Admin: 09/17/20 09:30 Dose: 10 ml Documented by: Sotalol HCl (Sotalol Hcl 80 Mg Tab) 160 mg PO Q12HR [facility] Last Admin: 09/21/20 08:58 Dose: 160 mg Documented by: Spironolactone (Spironolactone 25 Mg Tab) 25 mg PO QAM-[facility] Last Admin: 09/21/20 08:58 Dose: 25 mg Documented by: Thiamine HCl (Thiamine 100 Mg Tab) 100 mg PO DAILY [facility] Last Admin: 09/21/20 08:58 Dose: 100 mg Documented by: Vital Signs & Weight: Vital Signs Temp Pulse Resp BP BP Pulse Ox 09/21/20 08:58 81 09/21/20 08:00 96.7 F L 81 17 113/61 96 09/21/20 03:47 97.7 F 86 20 101/53 L 100 09/21/20 02:33 17 100 09/21/20 00:00 86 108/59 L 99 Admit Weight 399 lb 0.587 oz Weight 355 lb 6.162 oz I/O: I/O 09/20/20 09/21/20 09/22/20 06:59 06:59 06:59 Intake Total 2232 1714 Output Total 3150 3000 Balance -423 -0956 - Quality Measures Condition: Atrial Fibrillation/Flutter (hx or current) CV meds: Eliquis: Yes - Physical Exam General: alert & oriented x3, no apparent distress, speech clear, affect appropriate. negative: appears well HEENT: mucus membranes moist, normocephaly, EOMI Neck: supple neck, midline trachea, no JVD/HJR Cardiology: regular rate and rhythm Lungs: no wheeze, rales, rhonchi, decreased breath sounds Neurology: cranial nerve 2-12 intact, grossly intact, coordination normal Abdomen: active bowel sounds, soft, no masses - Labs Result Diagrams: 09/20/20 04:32 09/21/20 04:30 - EKG Interpretation EKG Method: Telemetry EKG shows: Sinus rhythm - Assessment/Plan Assessment/Plan: IMPRESSION: 1. Paroxysmal atrial fibrillation/atypical atrial flutter with rapid ventricular response, responsive to sotalol. 2. Diastolic congestive heart failure, left ventricular ejection fraction 55%. 3. Hypokalemia and mild hypomagnesemia at 1.9. 4. Morbid obesity. 5. Chronic lymphedema. 6. Transaminitis. 09/19: Had recurrent PxAF and sotalol was increased to 160mg BID. ECGs 2-3 hrs post sotalol to monitor QTc with increased dose 09/20: SR overnight. Labs in AM to monitor electrolytes. Goal: K>4.0 and Mag >2.0 On eliquis for OAC. 09/21: QT/QTc 390/474msec after dose last night. 406/479msec at 1100 09/21. Had Paroxysmal atrial flutter/PAT last night. No sustained arrhythmias, frequent runs around 1800 and 2300 last night. Longest episode 25second. Would not increase sotalol futher at this time. He is limited to medical management unless significant weight loss is achieved. Keep Mag >2 and K >4 with sotalol.
--- NOTE | 2020-09-21 13:27 | PRG ---
DATE OF SERVICE: 09/21/2020 SERVICE: Advanced Heart Failure/Transplant Cardiology Consult Service. SUBJECTIVE: Mr. Nikita Morgan had a good day. He felt more fluids are coming off his legs. He was able to ambulate down the hallway and back. He was able to sleep well. He was able to eat well. However, he is wanting to go home. 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 REVIEW OF SYSTEMS: GENERAL: There is no fever, chills, or productive cough. HEENT: There is no change in vision, hearing, or swallowing. PULMONARY: There is no short of breath. CARDIAC: There is no chest pain, palpitations, or syncope. GI: There is no nausea, vomiting, diarrhea. : He is able to go on his own but then he has to use [employer]. MUSCULOSKELETAL: There is no joint or muscle pains. INTEGUMENT: There are no complaints of new skin breakdown. NEUROLOGIC: There are no new focal deficits or weaknesses. CURRENT MEDICATIONS: 1. Acetazolamide 250 mg daily. 2. Albuterol/ipratropium nebs q.8 hours. 3. Apixaban 5 mg b.i.d. 4. Aspirin 81 mg daily. 5. Bumex 2 mg b.i.d. 6. Vitamin B12 2500 mcg daily. 7. Folic acid 1 mg daily. 8. Multivitamin tab one daily. 9. Magnesium oxide 800 mg twice a day. 10. Toprol-XL 25 mg q.12 hours. 11. Milrinone currently at 0.375 mcg/kg per minutes. 12. Protonix 40 mg daily. 13. Potassium chloride which is K-Dur 40 mEq daily. 14. Sotalol 160 mg p.o. q.12 hours. 15. Spironolactone 25 mg daily. 16. Thiamine supplement at 100 mg daily. His telemetry is reviewed. He is in sinus rhythm predominantly. He did have 2- 3 runs of AFib, A-Flutter, look like A-Flutter less than 25 seconds overnight during sleep but during the day he is in sinus rhythm. OBJECTIVE: VITAL SIGNS: His latest vitals include heart rate 86, blood pressure 113/61. His 24 hour in's and out's are 1714 in and 3000 out that would give him a net negative of 1286 mL. GENERAL: He is alert, conversational, reclining comfortably in bed while eating late breakfast or early lunch. He is alert and conversational. HEENT: Show EOMI. Oropharynx is benign with moist mucosa. NECK: JVP is probably 11 cm. PULMONARY: He has bibasilar crackles. CARDIAC: Regular rate and rhythm with normal S1/S2, there is 2/6 holosystolic murmur at the left sternal border and at the apex. ABDOMEN: Very large, soft, nontender. Positive bowel sounds. There is a bit of fluid wave still. EXTREMITIES: He has lower extremity edema in his thighs, however, now edema has greatly decreased. It has been decreasing steadily for a number of days now. The loss of fluids is leaving large skin folds. LABORATORY DATA: Chemistry: His sodium is 136, potassium 4, BUN 17, creatinine 0.83. His AST has decreased from 893 to 866. His ALT has decreased from 215 down to 154. His alkaline phosphatase is decreased down to 248. His albumin is 3.2. Says his liver enzymes continued to decrease. ASSESSMENT: 50-year-old gentleman is improving from his right ventricular failure. His liver is now being decongested that explains why his liver enzymes have been steadily returning back to normal for last several days. Likely pulmonary hypertension with RV dysfunction is causing the liver congestion. His atrial fibrillation/atrial flutter is well controlled now. He remains in sinus rhythm on sotalol 160 mg and Toprol-XL 25 mg q.12 hours. He will need several more days to be inotrope to clear his liver enzyme. Long-term fuller, it will be difficult to return his right ventricle back to near normal function. He will need to lose a lot of weight for this to happen. For now, we will continue the current regimen to clear his liver enzymes as much as possible. RECOMMENDATIONS: Please see the following for my recommendations: 1. We will continue milrinone at 0.375 mcg/kg/minute. 2. Continue current regimen of diuretics, which is Bumex 2 mg twice a day and also spironolactone 25 mg daily. 3. Keep potassium at least 4 and keep magnesium at least 2. 4. We will work with the patient's pharmacy company and egg caser in finding his outpatient care for him. If does not possible, we will go through an algorithm to wean him off the milrinone as much as possible. It has been a pleasure taking care of Mr. Morgan. If you any questions, please give me a call. The total time for this visit is 35 minutes. Job ID: [id number]
[2020-09-22 04:20] LABS: ALT (SGPT) 117 U/L (8-55); AST (SGOT) 54 U/L (5-34); Albumin 3.2 g/dL (3.5-5.0); Alkaline Phosphatase 237 U/L (40-110); Anion Gap 13 mmol/L (10-20); BUN (Urea Nitrogen) 20 mg/dL (8.9-20.6); Calc. Creatinine Clearance 237 mL/min (70-130); Calcium 9.3 mg/dL (7.8-10.44); Carbon Dioxide 27 mmol/L (22-29); Chloride 97 mmol/L (98-107); Glucose 108 mg/dL (70-105); Protein, Total 7.2 g/dL (6.0-8.3); Sodium 133 mmol/L (136-145)
--- NOTE | 2020-09-22 06:44 | PDOC.FM ---
- Subjective Subjective: Patient is resting comfortably in bed. No acute concerns, no events overnight. Denies chest pain, shortness of breath, N/V, abdominal pain. He states he did not work with PT yesterday because his was coming to the hospital when they came by. - Objective MAR Reviewed: Yes Vital Signs & Weight: Vital Signs (12 hours) Temp Pulse Resp BP Pulse Ox 09/22/20 04:00 97.8 F 76 16 103/57 L 100 09/22/20 02:25 20 99 09/21/20 23:13 21 H 100 09/21/20 23:12 82 21 H 100 09/21/20 20:00 98.9 F 87 18 111/60 95 Weight Admit Weight 181 kg Weight 162 kg Most Recent Monitor Data Heart Rate from ECG 87 NIBP 128/56 NIBP BP-Mean 80 Respiration from ECG 28 SpO2 96 I&O: 09/20/20 09/21/20 09/22/20 06:59 06:59 06:59 Intake Total 2372 1714 750 Output Total 3150 3000 2500 Balance -150 -9327 -4510 Result Diagrams: 09/20/20 04:32 09/22/20 03:39 Phys Exam - Physical Examination Constitutional: NAD HEENT: PERRLA faint expiratory wheeze Cardiovascular: RRR, no significant murmur Gastrointestinal: soft, non-tender, positive bowel sounds Musculoskeletal: edema present Neurological: non-focal, moves all 4 limbs Psychiatric: normal affect, A&O x 3 Skin: no rash Dx/Plan - Plan Plan: 50yo male with morbid obesity, COPD and CHF presents w/ increased swelling and SOB Acute Hypoxic Respiratory Failure 2/2 COPD exac vs CHF exac -duonebs jeb q8h, prednisone (09/06-09/18) -continue IV lasix -I/O: -778mL last 24 hours -needs cpap at night, will need outpt f/u to help set up -LO 04/2019 showed right side chamber enlargement -On bumex 2mg bid -consulted Dr. Lorenzo: milrinone gtt until LFT's back to baseline, likely to need to be discharged on milrinone, will need HH vs SN --> 09/20: increased milrinone to .375mcg/kg/min, increased Kdurr to [id number] BID, Dr. Lorenzo plans to discuss with infusion company possible outpatient care, CM onboard - difficulty finding outpatient milrinone care with patient's insurance. Per Dr. Lorenzo, if unable to set-up, will begin to wean milrinone Transaminitis, improving - AST/ALT 55.117 - hx: EtOH abuse and HF - RUQ abdominal US: hepatosteatosis, splenomegaly, biliary sludge, cholelithiasis - GI consulted: due to alcoholic hepatitis and right heart failure, no intervention needed - Ferritin ordered --78, unlikely hemochromatosis - will likely need milrinone gtt when he leaves to prevent liver enzymes from increasing A flutter s/p ablation - on eliquis 5mg bid - Dr. Lorenzo recs as above - consulted Dr Francisco: continue oral antiarrhythmic, oral anticoagulation, will need to lose weight to be candidate for ablation in future - replace K and Mg as needed - Dr. Lorenzo increased sotalol to 160 q12h (09/19), spoke with Dr. Francisco who agre ed, 6-8 sec runs of afib overnight, none sustained, asx Diarrhea -resolved Hyponatremia, resolved -Na 137 -this seems to be a chronic issue, could be 2/2 to alcohol consumption -continue to monitor UTI, asymptomatic -UA + for leuks, bacteria -UCx: no growth -received rocephin x1 EtOH abuse -ASE protocol -on thiamine HFpEF -continue with home meds -Bumex 2mg BID - Dr. Lorenzo consulted, appreciate recs, as above -echo: EF 55-60%, poor quality due to body habitus -monitor I/O, daily weights Lymphedema - Chronic condition - Monitor skin for breakdown Dispo: continue diuresis on tele, will continue to f/u Dr. Lorenzo's recs Addendum - Attending - Attending Attestation Date/Time: 09/22/20 1023 I personally evaluated the patient and discussed the management with Dr. Childs. I agree with the History, Examination, Assessment and Plan documented above with any addition or exceptions noted below.
--- NOTE | 2020-09-22 07:04 | EKG ---
Test Reason : TIMED Blood Pressure : / mmHG Vent. Rate : 089 BPM Atrial Rate : 089 BPM P-R Int : 142 ms QRS Dur : 078 ms QT Int : 390 ms P-R-T Axes : 036 037 037 degrees QTc Int : 474 ms Normal sinus rhythm Possible Left atrial enlargement Borderline ECG When compared with ECG of 20-SEP-2020 12:03, No significant change was found Confirmed by DR. Mike LOWE ([id number]) on 09/22/2020 7:04:15 AM Referred By: Phyllis LAURENT Confirmed By:DR. Mike LOWE
--- NOTE | 2020-09-22 07:10 | EKG ---
Test Reason : 2 HR POST MED Blood Pressure : / mmHG Vent. Rate : 084 BPM Atrial Rate : 084 BPM P-R Int : 140 ms QRS Dur : 084 ms QT Int : 406 ms P-R-T Axes : 058 045 058 degrees QTc Int : 479 ms Normal sinus rhythm Right atrial enlargement Borderline ECG When compared with ECG of 21-SEP-2020 02:22, (Unconfirmed) No significant change was found Confirmed by DR. Mike LOWE (3) on 09/22/2020 7:09:47 AM Referred By: NUBIA Confirmed By:DR. Mike LOWE
[2020-09-22] MEDS: Bumetanide 1 MG TAB PO SCH ×2 (09:02→17:51)
[2020-09-22] MEDS: Aspirin 81 mg Enteric Coated Tablet PO SCH (09:02)
[2020-09-22] MEDS: Sotalol HCl 80 MG TAB PO SCH ×2 (09:02→20:10)
[2020-09-22] MEDS: Folic Acid 1 MG TAB PO SCH (09:03)
[2020-09-22] MEDS: Apixaban 5 MG TAB PO SCH ×2 (09:03→20:11)
[2020-09-22] MEDS: Thiamine 100 MG TAB PO SCH (09:03)
[2020-09-22] MEDS: Cyanocobalamin (Vitamin B-12) 1,000 MCG TAB PO SCH (09:03)
[2020-09-22] MEDS: Potassium Chloride 20 MEQ TAB PO SCH ×2 (09:03→17:51)
[2020-09-22] MEDS: Multivitamin W/ Minerals 1 TAB PO SCH (09:03)
[2020-09-22] MEDS: Magnesium Oxide 400 MG TAB PO SCH ×2 (09:03→20:10)
[2020-09-22] MEDS: AcetaZOLAMIDE 250 MG TAB PO SCH (09:03)
[2020-09-22] MEDS: Spironolactone 25 MG TAB PO SCH (09:04)
[2020-09-22] MEDS: Polyethylene Glycol 3350 17 GM Packet PO SCH (09:04)
--- NOTE | 2020-09-22 11:25 | PRG ---
DATE OF SERVICE: 09/22/2020 SUBJECTIVE: Mr. Morgan had a good day. He was able to participate with PT. He was able to ambulate down the hallway and come back. However, he does need assistance to get in and out of bed. He no longer needs Purewick. Now, he is able to use the urinal on his own. This is overall much, much better. Currently, he is waiting on finding a way for his insurance to pay for home health care. This is a barrier for discharge. He does use CPAP at night, and he feels better when he does. REVIEW OF SYSTEMS: GENERAL: There are no fever, chills, or productive cough. HEENT: There is no change in vision, hearing, or swallowing. CARDIAC: There is no chest pain or syncope. GI: There is no nausea, vomiting, diarrhea. : Please see HPI. MUSCULOSKELETAL: He said his edema has continued to decrease including his thighs. INTEGUMENT: There is no new skin breakdown. NEUROLOGIC: There are no focal deficits or weaknesses. MEDICATIONS: His current medications consist of, 1. Acetazolamide 250 mg daily. 2. Albuterol ipratropium nebulization q.8 hours by RT. 3. Apixaban 5 mg p.o. b.i.d. 4. Aspirin 81 mg daily. 5. Bumex 2 mg twice a day. 6. Vitamin B12 2500 mcg daily. 7. Folic acid 1 mg daily. 8. Magnesium oxide 800 mg b.i.d. 9. Toprol-XL 25 mg p.o. q.12 hours. 10. Milrinone currently at 0.375 mcg/kg/minute. 11. Protonix 40 mg daily. 12. MiraLAX 17 g daily. 13. K-Dur 40 mEq b.i.d. 14. Sotalol 160 mg p.o. q.12 hours. 15. Spironolactone 25 mg daily. 16. Thiamine 100 mg daily. PHYSICAL EXAMINATION: Telemetry was reviewed. He is predominantly in sinus rhythm at nighttime. About midnight to 1 a.m., he will have short runs of AFib/A flutter, sometimes PAT last about 25 seconds, but no more than that. When he is awake, he is in sinus rhythm. VITAL SIGNS: His latest vitals at bedside were heart rate 76, blood pressure 121/62. His oxygen saturation 97%. GENERAL: He is alert and conversational, reclining comfortably in bed. HEENT: EOMI. Oropharynx is benign with moist mucosa. NECK: Has large diameter, difficult to tell; however, the JVP is still elevated at about 11 cm at least. PULMONARY: There is good air movement. There are slight bibasilar crackles. CARDIAC: Regular rate and rhythm with 2/6 holosystolic murmur at the apex and also 2/6 holosystolic murmur at the left upper sternal, so he has most likely both mitral regurgitation and tricuspid regurgitation. ABDOMEN: Very large, soft, nontender. Positive bowel sounds. EXTREMITIES: Very large size from the lymphedema, but then there is also fluid edema on top of that that has decreased. His knees down to his feet has decreased edema. He has much loose skin now at location of previous edema. LABORATORY DATA: Laboratory values from today are sodium 135, potassium 4, chloride 97, bicarbonate 24, BUN 20, creatinine 0.86. His AST continued to decrease now at 54, this is the lowest ever. His ALT also decreasing down to 117, so these are the best liver enzyme numbers yet today. His magnesium is 2.0. ASSESSMENT: 50-year-old gentleman continues to improve from right heart failure. His liver is being decongested. His liver enzymes continued to decrease. However, he is requiring continued milrinone to sustain this. His in's and out's was also negative again. According to records, he has 750 in and 4050 out, net negative 3.3 L. He has lot more fluid to go. He is currently requiring milrinone at 0.375 mcg/kg/minute to augment the right ventricle and Bumex 2 mg twice a day to diurese. He does have paroxysmal AFib/A flutter. This is now converted to sinus rhythm by sotalol. It is likely that sleep apnea episodes trigger episodic short runs of AFib/A flutter. This is probably the best one can do at this point. Sotalol 160 mg twice a day is providing sufficient rhythm control. With him continuing to improving and waiting on insurance issues, there are no medication changes today. Please see the following for my recommendations. RECOMMENDATIONS: 1. Continue milrinone at 0.375 mcg/kg/minute. 2. Please continue sotalol 160 mg twice a day along with Toprol-XL 25 mg twice a day. 3. Current dosage of diuretic is enough. 4. Continue to supplement his potassium and magnesium. Keep potassium to be above 4 and keep magnesium to be above 2. 5. I strongly counseled the patient against ever using alcohol again. 6. We will wait on Case Management to work out the details of the possibility of discharging with milrinone. It has been a pleasure taking care of Mr. Morgan. If you have any questions, please give me a call. The total visitation time is 35 minutes. Job ID: [id number] MTDD
--- NOTE | 2020-09-22 17:06 | PDOC.EP ---
- Subjective Date: 09/22/20 Time: 08:00 Interval History: no new events overnight. He is resting comfortably in bed. He denies any heart racing, palpitations, chest pain, stroke or stroke-like symptoms - Review of Systems Constitutional: reports: weakness. denies: chills, fever, malaise, sweats, other Respiratory: reports: shortness of breath. denies: cough, dry, hemoptysis, pleuritic pain, SOB with excertion, sputum, wheezing, other Cardiology: denies: chest pain, edema, heart racing, light headedness, paroxysmal noc. dyspnea, orthopnea, palpitations, passing out, pleuritic pain, pressure, swelling, other Gastrointestinal: denies: abdominal pain, constipation, diarrhea, hematochezia, melena, nausea, vomitting, other - Objective Allergies/Adverse Reactions: Allergies Allergy/AdvReac Type Severity Reaction Status Date / Time warfarin Allergy Rash Verified 09/07/20 06:16 Current Medications Acetazolamide (Acetazolamide 250 Mg Tab) 250 mg PO DAILY [facility] Last Admin: 09/22/20 09:03 Dose: 250 mg Documented by: Albuterol/Ipratropium (Ipratropium/Albuterol Sulfate 3 Ml Neb) 3 ml NEB [id number] PRN PRN Reason: SOB &/or Wheezing Albuterol/Ipratropium (Ipratropium/Albuterol Sulfate 3 Ml Neb) 3 ml NEB [id number]-DH [facility] Last Admin: 09/22/20 14:34 Dose: 3 ml Documented by: Apixaban (Apixaban 5 Mg Tab) 5 mg PO BID [facility] Last Admin: 09/22/20 09:03 Dose: 5 mg Documented by: Aspirin (Aspirin 81 Mg Enteric Coated Tablet) 81 mg PO DAILY [facility] Last Admin: 09/22/20 09:02 Dose: 81 mg Documented by: Bumetanide (Bumetanide 1 Mg Tab) 2 mg PO BID-[facility] Last Admin: 09/22/20 09:02 Dose: 2 mg Documented by: Cyanocobalamin (Cyanocobalamin (Vitamin B-12) 1,000 Mcg Tab) 2,500 mcg PO DAILY [facility] Last Admin: 09/22/20 09:03 Dose: 2,500 mcg Documented by: Folic Acid (Folic Acid 1 Mg Tab) 1 mg PO DAILY [facility] Last Admin: 12/03/20 09:03 Dose: 1 mg Documented by: Milrinone Lactate 20 mg/ (Sodium Chloride) 100 mls @ 20.228 mls/hr IVPB INF [facility] Last Admin: 09/22/20 13:12 Dose: 100 mls Documented by: Iron/Minerals/Multivitamins (Multivitamin W/ Minerals 1 Tab) 1 tab PO DAILY [facility] Last Admin: 09/22/20 09:03 Dose: 1 tab Documented by: Magnesium Oxide (Magnesium Oxide 400 Mg Tab) 800 mg PO BID [facility] Last Admin: 09/22/20 09:03 Dose: 800 mg Documented by: Metoprolol Succinate (Metoprolol Succinate Xl 25 Mg Tab) 25 mg PO Q12HR [facility] Last Admin: 09/22/20 09:04 Dose: 25 mg Documented by: Metoprolol Tartrate (Metoprolol Tartrate 5 Mg/5 Ml Vial) 5 mg IVP Q8H PRN PRN Reason: HR>130 Last Admin: 09/11/20 09:34 Dose: 5 mg Documented by: Ondansetron HCl (Ondansetron Odt 4 Mg Tab) 4 mg PO Q6H PRN PRN Reason: Nausea/Vomiting Ondansetron HCl (Ondansetron Pf 4 Mg/2 Ml Vial) 4 mg IVP Q6H PRN PRN Reason: Nausea/Vomiting Pantoprazole Sodium (Pantoprazole 40 Mg Tab) 40 mg PO [facility] Last Admin: 09/22/20 09:03 Dose: 40 mg Documented by: Polyethylene Glycol (Polyethylene Glycol 3350 17 Gm Packet) 17 gm PO DAILY [facility] Last Admin: 09/22/20 09:04 Dose: Not Given Documented by: Potassium Chloride (Potassium Chloride 20 Meq Tab) 40 meq PO BID-[facility] Last Admin: 09/22/20 09:03 Dose: 40 meq Documented by: Sodium Chloride (Flush - Normal Saline 10 Ml Syringe) 10 ml IVF PRN PRN PRN Reason: Saline Flush Last Admin: 09/17/20 09:30 Dose: 10 ml Documented by: Sotalol HCl (Sotalol Hcl 80 Mg Tab) 160 mg PO Q12HR [facility] Last Admin: 09/22/20 09:02 Dose: 160 mg Documented by: Spironolactone (Spironolactone 25 Mg Tab) 25 mg PO [facility] Last Admin: 09/22/20 09:04 Dose: 25 mg Documented by: Thiamine HCl (Thiamine 100 Mg Tab) 100 mg PO DAILY [facility] Last Admin: 09/22/20 09:03 Dose: 100 mg Documented by: Vital Signs & Weight: Vital Signs Temp Pulse Pulse Pulse Resp BP BP 09/22/20 14:34 83 16 09/22/20 13:16 121/67 122/72 09/22/20 12:00 97.2 F L 85 17 09/22/20 09:06 83 87 116/61 121/62 09/22/20 09:02 84 09/22/20 08:00 97.4 F L 84 17 09/22/20 07:32 09/22/20 07:31 82 20 BP BP Pulse Ox Pulse Ox Pulse Ox 09/22/20 14:34 96 09/22/20 13:16 09/22/20 12:00 114/60 96 09/22/20 09:06 98 98 09/22/20 09:02 09/22/20 08:00 107/58 L 96 09/22/20 07:32 97 09/22/20 07:31 97 Admit Weight 399 lb 0.587 oz Weight 357 lb 2.382 oz I/O: I/O 09/21/20 09/22/20 09/23/20 06:59 06:59 06:59 Intake Total 1714 750 Output Total 3000 4050 Balance -1286 -3300 - Quality Measures Condition: Atrial Fibrillation/Flutter (hx or current) CV meds: Eliquis: Yes - Physical Exam General: alert & oriented x3, no apparent distress, speech clear, affect appr opriate. negative: appears well HEENT: mucus membranes moist, normocephaly, EOMI Neck: supple neck, midline trachea, no lymphadenopathy Cardiology: regular rate and rhythm Lungs: clear to auscultation, no wheeze, rales, rhonchi, decreased breath sounds - Labs Result Diagrams: 09/20/20 04:32 09/22/20 03:39 - EKG Interpretation EKG Method: Telemetry EKG shows: Sinus rhythm - Assessment/Plan Assessment/Plan: IMPRESSION: 1. Paroxysmal atrial fibrillation/atypical atrial flutter with rapid ventricular response, responsive to sotalol. 2. Diastolic congestive heart failure, left ventricular ejection fraction 55%. 3. Hypokalemia and mild hypomagnesemia at 1.9. 4. Morbid obesity. 5. Chronic lymphedema. 6. Transaminitis. 09/19: Had recurrent PxAF and sotalol was increased to 160mg BID. ECGs 2-3 hrs post sotalol to monitor QTc with increased dose 09/20: SR overnight. Labs in AM to monitor electrolytes. Goal: K>4.0 and Mag >2.0 On eliquis for OAC. 09/21: QT/QTc 390/474msec after dose last night. 406/479msec at 1100 09/21. Had Paroxysmal atrial flutter/PAT last night. No sustained arrhythmias, frequent runs around 1800 and 2300 last night. Longest episode 25second. Would not increase sotalol futher at this time. He is limited to medical management unless significant weight loss is achieved. Keep Mag >2 and K >4 with sotalol. 09/22: continues to have paroxysmal atrial tachycardia/ fib episodes up to 25 seconds in duration largely well as sleep. I suspect this is due to sleep apnea. Recommend he wear CPAP at night and consider outpatient sleep study. otherwise no changes. continue sotalol and Eliquis. Continue electrolyte replacement as needed
[2020-09-23 04:41] LABS: Hemoglobin 12.1 g/dL (14.0-18.0); Platelet Count 182 thou/uL (130-400)
[2020-09-23 05:05] LABS: ALT (SGPT) 91 U/L (8-55); AST (SGOT) 45 U/L (5-34); Albumin 3.3 g/dL (3.5-5.0); Alkaline Phosphatase 224 U/L (40-110); Anion Gap 17 mmol/L (10-20); BUN (Urea Nitrogen) 22 mg/dL (8.9-20.6); Bilirubin, Total 1.2 mg/dL (0.2-1.2); Calc. Creatinine Clearance 191 mL/min (70-130); Calcium 9.2 mg/dL (7.8-10.44); Carbon Dioxide 26 mmol/L (22-29); Chloride 98 mmol/L (98-107); Glucose 105 mg/dL (70-105); Potassium 3.7 mmol/L (3.5-5.1); Protein, Total 7.3 g/dL (6.0-8.3); Sodium 137 mmol/L (136-145)
--- NOTE | 2020-09-23 06:25 | PDOC.FM ---
- Subjective Subjective: Patient is resting comfortably in bed. No acute events overnight. No concerns. Denied chest pain, shortness of breath, abdominal pain n/v. - Objective MAR Reviewed: Yes Vital Signs & Weight: Vital Signs (12 hours) Temp Pulse Resp BP BP BP Pulse Ox 09/23/20 03:47 98.2 F 78 20 95/50 L 99 09/23/20 00:00 77 20 91/53 L 100 09/22/20 21:52 20 100 09/22/20 21:50 96 09/22/20 20:10 85 112/62 09/22/20 19:40 98.5 F 85 20 112/62 99 Weight Admit Weight 181 kg Weight 159.4 kg Most Recent Monitor Data Heart Rate from ECG 87 NIBP 128/56 NIBP BP-Mean 80 Respiration from ECG 28 SpO2 96 I&O: 09/21/20 09/22/20 09/23/20 06:59 06:59 06:59 Intake Total 6535 459 5237 Output Total 3000 4050 2950 Balance -1286 -0790 -1170 Result Diagrams: 09/23/20 04:09 09/23/20 04:09 Phys Exam - Physical Examination Constitutional: NAD HEENT: PERRLA, moist MMs faint crackles bilaterally Cardiovascular: RRR, no significant murmur Gastrointestinal: soft, non-tender, positive bowel sounds Musculoskeletal: edema present Neurological: non-focal, moves all 4 limbs Psychiatric: normal affect, A&O x 3 Skin: no rash Dx/Plan - Plan Plan: 50yo male with morbid obesity, COPD and CHF presents w/ increased swelling and SOB Acute Hypoxic Respiratory Failure 2/2 COPD exac vs CHF exac -duonebs jeb q8h, prednisone (09/06-09/18) -continue IV lasix -I/O: -3.3L last 24 hours -needs cpap at night, will need outpt f/u to help set up -LO 04/2019 showed right side chamber enlargement -On bumex 2mg bid -consulted Dr. Lorenzo: milrinone gtt until LFT's back to baseline, likely to need to be discharged on milrinone, will need HH vs SN --> 09/20: increased milrinone to .375mcg/kg/min, increased Kdurr to [id number] BID, Dr. Lorenzo plans to discuss with infusion company possible outpatient care, CM onboard - difficulty finding outpatient milrinone care with patient's insurance. Per Dr. Lorenzo, if unable to set-up, will attempt to wean milrinone Transaminitis, improving - AST/ALT / - hx: EtOH abuse and HF - RUQ abdominal US: hepatosteatosis, splenomegaly, biliary sludge, cholelithiasis - GI consulted: due to alcoholic hepatitis and right heart failure, no intervention needed - Ferritin ordered --78, unlikely hemochromatosis - will likely need milrinone gtt when he leaves to prevent liver enzymes from increasing A flutter s/p ablation - on eliquis 5mg bid - Dr. Lorenzo recs as above - consulted Dr Francisco: continue oral antiarrhythmic, oral anticoagulation, will need to lose weight to be candidate for ablation in future - replace K and Mg as needed - Dr. Lorenzo increased sotalol to 160 q12h (09/19), spoke with Dr. Francisco who agreed Diarrhea -resolved Hyponatremia, resolved -Na 137 -this seems to be a chronic issue, could be 2/2 to alcohol consumption -continue to monitor UTI, asymptomatic -UA + for leuks, bacteria -UCx: no growth -received rocephin x1 EtOH abuse -ASE protocol -on thiamine HFpEF -continue with home meds -Bumex 2mg BID - Dr. Lorenzo consulted, appreciate recs, as above -echo: EF 55-60%, poor quality due to body habitus -monitor I/O, daily weights Lymphedema - Chronic condition - Monitor skin for breakdown Dispo: continue diuresis on tele, will continue to f/u Dr. Lorenzo's recs Addendum - Attending - Attending Attestation Date/Time: 09/23/20 2834 I personally evaluated the patient and discussed the management with Dr. Childs. I agree with the History, Examination, Assessment and Plan documented above with any addition or exceptions noted below.
--- NOTE | 2020-09-23 07:14 | EKG ---
Test Reason : POST Blood Pressure : / mmHG Vent. Rate : 084 BPM Atrial Rate : 084 BPM P-R Int : 150 ms QRS Dur : 080 ms QT Int : 408 ms P-R-T Axes : 037 041 044 degrees QTc Int : 482 ms Sinus rhythm PAC's Prolonged QT Abnormal ECG When compared with ECG of 21-SEP-2020 11:02, No significant change was found Confirmed by DR. Mike LOWE (3) on 09/23/2020 7:14:20 AM Referred By: [facility] Confirmed By:DR. Mike LOWE
[2020-09-23] MEDS: Thiamine 100 MG TAB PO SCH (08:48)
[2020-09-23] MEDS: Cyanocobalamin (Vitamin B-12) 1,000 MCG TAB PO SCH (08:48)
[2020-09-23] MEDS: Magnesium Oxide 400 MG TAB PO SCH ×2 (08:48→21:02)
[2020-09-23] MEDS: Aspirin 81 mg Enteric Coated Tablet PO SCH (08:48)
[2020-09-23] MEDS: Apixaban 5 MG TAB PO SCH ×2 (08:48→21:02)
[2020-09-23] MEDS: Bumetanide 1 MG TAB PO SCH (08:49)
[2020-09-23] MEDS: Sotalol HCl 80 MG TAB PO SCH ×2 (08:49→21:02)
[2020-09-23] MEDS: Potassium Chloride 20 MEQ TAB PO SCH ×2 (08:49→17:12)
[2020-09-23] MEDS: Folic Acid 1 MG TAB PO SCH (08:50)
[2020-09-23] MEDS: AcetaZOLAMIDE 250 MG TAB PO SCH (08:50)
[2020-09-23] MEDS: Multivitamin W/ Minerals 1 TAB PO SCH (08:50)
[2020-09-23] MEDS: Spironolactone 25 MG TAB PO SCH (08:50)
[2020-09-23] MEDS: Polyethylene Glycol 3350 17 GM Packet PO SCH (08:50)
[2020-09-23] MEDS ORDERED: Potassium Chloride 20 MEQ TAB PO SCH (10:00)
--- NOTE | 2020-09-23 10:49 | PRG ---
DATE OF SERVICE: 09/23/2020 SUBJECTIVE: Mr. Morgan had a good day overall. He was able to ambulate down the danielle and then come back. He is able to urinate using a urinal instead of using PureWick. He has generally regain his baseline function. However, due to his insurance issues, there has been difficulty in obtaining funding and also Home Health Care for outpatient milrinone. It has been proven that he needs milrinone at 0.375 mcg/kg/minute. He was not pleased about being woken up at 3 o'clock in the morning for blood pressure measurements and blood draw, otherwise, he is doing well. REVIEW OF SYSTEMS: GENERAL: There is no fever, chills, or productive cough. HEENT: There is no change in vision, hearing, or swallowing. PULMONARY: He is breathing well. CARDIAC: He is not complaining of chest pain, palpitations, or syncope. GI: He is eating well. There is no nausea, vomiting, diarrhea. However, he does not like the low-salt diet. : He is able to use urinal now. MUSCULOSKELETAL: There is no muscle or joint pains. INTEGUMENT: There is no skin breakdown. NEUROLOGIC: There are no focal deficits or weaknesses. CURRENT MEDICATIONS: Include, 1. Acetazolamide 250 mg daily. 2. Albuterol and ipratropium nebs q.8 hours. 3. Apixaban 5 mg twice a day. 4. Aspirin 81 mg daily. 5. Bumex 2 mg b.i.d. 6. Vitamin B12 2500 mcg daily. 7. Folic acid 1 mg daily. 8. Multivitamin one tab daily. 9. Magnesium oxide 800 mg twice a day. 10. Toprol-XL 25 mg q.12 hours. 11. Milrinone 0.375 mcg/kg/minute. 12. Protonix 40 mg daily. 13. K-Dur at 40 mEq twice a day. 14. Sotalol 160 mg p.o. q.2 hours. 15. Spironolactone 25 mg p.o. daily. PHYSICAL EXAMINATION: Telemetry was reviewed. He is in sinus rhythm. He has predominantly sinus; however, he has episodic short runs of atrial fibrillation that last less than a minute. These are infrequent and converts back in sinus rhythm. VITAL SIGNS: His latest vitals are heart rate 82, blood pressure 111/58. GENERAL: He is alert, conversational, lying comfortably in bed, wearing 2 L of oxygen by nasal cannula. HEENT: Show EOMI. Oropharynx is benign with moist mucosa. NECK: Large diameter neck, JVP difficult to assess that is probably about 10 cm. PULMONARY: There is good air movement. He still has bibasilar crackles, worse on the right than left. CARDIAC: Regular rate and rhythm. Normal S1, S2. There is 2/6 holosystolic murmur at the left upper sternal border and also at the apex. ABDOMEN: Large soft, nontender. Positive bowel sounds. EXTREMITIES: Lower extremity has large amount of adipose tissue. His edema is nearly all gone. He is warm and well perfused. LABORATORY DATA: His current chemistry values are sodium 137, potassium 3.7, BUN 22, creatinine 1.07. His net 24 hour In's and output were 1780 in and 2950 out, so he is net -1170 mL. ASSESSMENT: 50-year-old gentleman has combination of right heart failure, cor pulmonale and likely heart failure with preserved ejection fraction. This combination causes liver congestion. Milrinone at 0.375 mcg/kg/minute is relieving the congestion, thereby normalizing his liver enzymes. Per the records, he went from 400 pounds down to 351 pounds. Thus, he may have lost about 49 pounds off water weight since this visit. He still has fluid on board; however, with a slight increase in BUN and creatinine and is trending up, we will need to slow down diuretics. At this point, I will switch over to torsemide that is gentler, but then long-lasting. Long- term fuller, he will need combination of milrinone and diuretics. He has had at one time difficult to control atrial fibrillation/atrial flutter. Currently, he is maintaining sinus rhythm by combination of sotalol 160 mg twice a day and also Toprol-XL 25 mg q.12 hours, so this will need to be continued. Please see the following for my recommendations. RECOMMENDATIONS 1. Please provide K-Dur 40 mEq one dose now 2. Stop Bumex 2 mg twice a day. 3. Change that to torsemide 20 mg p.o. twice a day. I hope that he will be able to maintain his net negative with torsemide. 4. We will continue to work with Case Management to provide a way for him to continue milrinone as outpatient. If not, we will need to titrate this slowly over time and find a way to compensate as much as possible. It has been a pleasure taking care of Mr. Morgan. If any questions, please give me a call. The total visitation time is 40 minutes. Job ID: [id number] MTDD
--- NOTE | 2020-09-23 12:50 | EKG ---
Test Reason : Blood Pressure : / mmHG Vent. Rate : 081 BPM Atrial Rate : 081 BPM P-R Int : 138 ms QRS Dur : 086 ms QT Int : 404 ms P-R-T Axes : 049 047 052 degrees QTc Int : 469 ms Normal sinus rhythm Normal ECG When compared with ECG of 12-SEP-2020 23:47, (Unconfirmed) No significant change was found Confirmed by DES PERALTA (2) on 09/23/2020 12:50:36 PM Referred By: MEHRAN Confirmed By:DES PERALTA
--- NOTE | 2020-09-23 12:51 | EKG ---
Test Reason : 2 HR POST MED Blood Pressure : / mmHG Vent. Rate : 076 BPM Atrial Rate : 076 BPM P-R Int : 142 ms QRS Dur : 088 ms QT Int : 412 ms P-R-T Axes : 058 044 049 degrees QTc Int : 463 ms Normal sinus rhythm Normal ECG When compared with ECG of 13-SEP-2020 07:53, (Unconfirmed) No significant change was found Confirmed by DES PERALTA (2) on 09/23/2020 12:51:28 PM Referred By: MEHRAN Confirmed By:DES PERALTA
--- NOTE | 2020-09-23 12:53 | EKG ---
Test Reason : Blood Pressure : / mmHG Vent. Rate : 080 BPM Atrial Rate : 080 BPM P-R Int : 142 ms QRS Dur : 082 ms QT Int : 406 ms P-R-T Axes : 033 033 034 degrees QTc Int : 468 ms Normal sinus rhythm Possible Left atrial enlargement Borderline ECG When compared with ECG of 13-SEP-2020 11:26, (Unconfirmed) No significant change was found Confirmed by DES PERALTA (2) on 09/23/2020 12:53:10 PM Referred By: MEHRAN Confirmed By:DES PERALTA
--- NOTE | 2020-09-23 12:55 | EKG ---
Test Reason : 2 HR POST MED Blood Pressure : / mmHG Vent. Rate : 082 BPM Atrial Rate : 082 BPM P-R Int : 148 ms QRS Dur : 088 ms QT Int : 398 ms P-R-T Axes : 035 046 055 degrees QTc Int : 464 ms Sinus rhythm with occasional Premature ventricular complexes Otherwise normal ECG When compared with ECG of 13-SEP-2020 11:26, (Unconfirmed) Premature ventricular complexes are now Present Confirmed by DES PERALTA (2) on 09/23/2020 12:54:53 PM Referred By: MEHRAN Confirmed By:DES PERALTA
--- NOTE | 2020-09-23 13:04 | EKG ---
Test Reason : CP Blood Pressure : / mmHG Vent. Rate : 079 BPM Atrial Rate : 079 BPM P-R Int : 142 ms QRS Dur : 086 ms QT Int : 412 ms P-R-T Axes : 040 038 041 degrees QTc Int : 472 ms Normal sinus rhythm Possible Left atrial enlargement Borderline ECG When compared with ECG of 14-SEP-2020 10:56, (Unconfirmed) Premature ventricular complexes are no longer Present Confirmed by DES PERALTA (2) on 09/23/2020 1:04:12 PM Referred By: WALTER Confirmed By:DES PERALTA
[2020-09-23] MEDS: Torsemide 20 MG TAB PO SCH (15:23)
--- NOTE | 2020-09-23 15:37 | PDOC.EP ---
- Subjective Date: 09/23/20 Time: 11:00 Interval History: Temins with no new symptoms. Continues on Milrinone drip. - Review of Systems Constitutional: denies: chills, fever, malaise, sweats, weakness, other Respiratory: denies: cough, dry, hemoptysis, pleuritic pain, shortness of breath, SOB with excertion, sputum, wheezing, other Cardiology: denies: chest pain, edema, heart racing, light headedness, paroxysmal noc. dyspnea, orthopnea, palpitations, passing out, pleuritic pain, pressure, swelling, other Gastrointestinal: denies: abdominal pain, constipation, diarrhea, hematochezia, melena, nausea, vomitting, other - Objective Allergies/Adverse Reactions: Allergies Allergy/AdvReac Type Severity Reaction Status Date / Time warfarin Allergy Rash Verified 09/07/20 06:16 Current Medications Acetazolamide (Acetazolamide 250 Mg Tab) 250 mg PO DAILY [facility] Last Admin: 09/23/20 08:50 Dose: 250 mg Documented by: Albuterol/Ipratropium (Ipratropium/Albuterol Sulfate 3 Ml Neb) 3 ml NEB [id number] PRN PRN Reason: SOB &/or Wheezing Albuterol/Ipratropium (Ipratropium/Albuterol Sulfate 3 Ml Neb) 3 ml NEB [id number] [facility] Last Admin: 09/23/20 14:26 Dose: 3 ml Documented by: Apixaban (Apixaban 5 Mg Tab) 5 mg PO BID [facility] Last Admin: 09/23/20 08:48 Dose: 5 mg Documented by: Aspirin (Aspirin 81 Mg Enteric Coated Tablet) 81 mg PO DAILY [facility] Last Admin: 09/23/20 08:48 Dose: 81 mg Documented by: Cyanocobalamin (Cyanocobalamin (Vitamin B-12) 1,000 Mcg Tab) 2,500 mcg PO DAILY [facility] Last Admin: 09/23/20 08:48 Dose: 2,500 mcg Documented by: Folic Acid (Folic Acid 1 Mg Tab) 1 mg PO DAILY [facility] Last Admin: 09/23/20 08:50 Dose: 1 mg Documented by: Milrinone Lactate/Dextrose (Milrinone Lactate/D5w) 100 mls @ 20.228 mls/hr IVPB INF [facility] Last Admin: 09/23/20 15:23 Dose: 100 mls Documented by: Iron/Minerals/Multivitamins (Multivitamin W/ Minerals 1 Tab) 1 tab PO DAILY [facility] Last Admin: 09/23/20 08:50 Dose: 1 tab Documented by: Magnesium Oxide (Magnesium Oxide 400 Mg Tab) 800 mg PO BID [facility] Last Admin: 09/23/20 08:48 Dose: 800 mg Documented by: Metoprolol Succinate (Metoprolol Succinate Xl 25 Mg Tab) 25 mg PO Q12HR [facility] Last Admin: 09/23/20 08:50 Dose: 25 mg Documented by: Metoprolol Tartrate (Metoprolol Tartrate 5 Mg/5 Ml Vial) 5 mg IVP Q8H PRN PRN Reason: HR>130 Last Admin: 09/11/20 09:34 Dose: 5 mg Documented by: Ondansetron HCl (Ondansetron Odt 4 Mg Tab) 4 mg PO Q6H PRN PRN Reason: Nausea/Vomiting Ondansetron HCl (Ondansetron Pf 4 Mg/2 Ml Vial) 4 mg IVP Q6H PRN PRN Reason: Nausea/Vomiting Pantoprazole Sodium (Pantoprazole 40 Mg Tab) 40 mg PO QA[facility] Last Admin: 09/23/20 08:50 Dose: 40 mg Documented by: Polyethylene Glycol (Polyethylene Glycol 3350 17 Gm Packet) 17 gm PO DAILY [facility] Last Admin: 09/23/20 08:50 Dose: Not Given Documented by: Potassium Chloride (Potassium Chloride 20 Meq Tab) 40 meq PO BID[facility] Last Admin: 09/23/20 08:49 Dose: 40 meq Documented by: Sodium Chloride (Flush - Normal Saline 10 Ml Syringe) 10 ml IVF PRN PRN PRN Reason: Saline Flush Last Admin: 09/17/20 09:30 Dose: 10 ml Documented by: Sotalol HCl (Sotalol Hcl 80 Mg Tab) 160 mg PO Q12HR [facility] Last Admin: 09/23/20 08:49 Dose: 160 mg Documented by: Spironolactone (Spironolactone 25 Mg Tab) 25 mg PO QAM[facility] Last Admin: 09/23/20 08:50 Dose: 25 mg Documented by: Thiamine HCl (Thiamine 100 Mg Tab) 100 mg PO DAILY [facility] Last Admin: 09/23/20 08:48 Dose: 100 mg Documented by: Torsemide (Torsemide 20 Mg Tab) 20 mg PO 0900,1400 RAIN Last Admin: 09/23/20 15:23 Dose: 20 mg Documented by: Vital Signs & Weight: Vital Signs Temp Pulse Resp BP BP Pulse Ox 09/23/20 14:26 83 16 91 L 09/23/20 08:49 83 09/23/20 08:00 96.1 F L 74 18 110/65 96 09/23/20 07:08 91 L 09/23/20 07:07 83 16 91 L 09/23/20 03:47 98.2 F 78 20 95/50 L 99 Admit Weight 399 lb 0.587 oz Weight 351 lb 6.669 oz I/O: I/O 09/22/20 09/23/20 09/24/20 06:59 06:59 06:59 Intake Total 750 1780 Output Total 4050 2950 Balance -0670 -0430 - Quality Measures Condition: Atrial Fibrillation/Flutter (hx or current) CV meds: Eliquis: Yes - Physical Exam General: alert & oriented x3, appears well, no apparent distress Neck: no JVD/HJR Cardiology: regular rate and rhythm, no murmur Lungs: clear to auscultation, normal exam Neurology: grossly intact Abdomen: unremarkable, active bowel sounds Musculoskeletal: no pain - Chadsvasc Risk factors Congestive heart failure: 1 Hypertension: 1 Risk Score: 2 - Labs Result Diagrams: 09/23/20 04:09 09/23/20 04:09 - EKG Interpretation EKG Method: Telemetry EKG shows: Sinus rhythm - Assessment/Plan Assessment/Plan: 1. Paroxysmal atrial fibrillation/atypical atrial flutter with rapid ventricular response, responsive to sotalol. 2. Diastolic congestive heart failure, left ventricular ejection fraction 55%. 3. Hypokalemia and mild hypomagnesemia at 1.9. 4. Morbid obesity. 5. Chronic lymphedema. 6. Transaminitis. 09/19: Had recurrent PxAF and sotalol was increased to 160mg BID. ECGs 2-3 hrs post sotalol to monitor QTc with increased dose 09/20: SR overnight. Labs in AM to monitor electrolytes. Goal: K>4.0 and Mag >2.0 On eliquis for OAC. 09/21: QT/QTc 390/474msec after dose last night. 406/479msec at 1100 09/21. Had Paroxysmal atrial flutter/PAT last night. No sustained arrhythmias, frequent runs around 1800 and 2300 last night. Longest episode 25second. Would not increase sotalol futher at this time. He is limited to medical management unless significant weight loss is achieved. Keep Mag >2 and K >4 with sotalol. 09/22: continues to have paroxysmal atrial tachycardia/ fib episodes up to 25 seconds in duration largely well as sleep. I suspect this is due to sleep apnea. Recommend he wear CPAP at night and consider outpatient sleep study. otherwise no changes. continue sotalol and Eliquis. Continue electrolyte replacement as needed 09/23. Remains clinically stable. No new issues. Still no acceptance in NH. Still on Milrinone drip. Will check again 09/26/20
[2020-09-24 05:19] LABS: ALT (SGPT) 74 U/L (8-55); AST (SGOT) 43 U/L (5-34); Albumin 3.2 g/dL (3.5-5.0); Alkaline Phosphatase 198 U/L (40-110); Anion Gap 14 mmol/L (10-20); BUN (Urea Nitrogen) 22 mg/dL (8.9-20.6); Bilirubin, Total 1.1 mg/dL (0.2-1.2); Calc. Creatinine Clearance 166 mL/min (70-130); Calcium 9.2 mg/dL (7.8-10.44); Carbon Dioxide 27 mmol/L (22-29); Chloride 98 mmol/L (98-107); Glucose 113 mg/dL (70-105); Potassium 3.9 mmol/L (3.5-5.1); Protein, Total 7.2 g/dL (6.0-8.3); Sodium 135 mmol/L (136-145)
--- NOTE | 2020-09-24 06:11 | PDOC.FM ---
- Subjective Subjective: Patient is resting comfortably in bed. No acute events overnight, no concerns. Denies chest pain, shortness of breath, abdominal pain, N/V. - Objective MAR Reviewed: Yes Vital Signs & Weight: Vital Signs (12 hours) Temp Pulse Resp BP BP Pulse Ox 09/24/20 04:00 98.4 F 78 18 105/53 L 98 09/23/20 23:40 23 H 97 09/23/20 23:39 96 09/23/20 21:02 95 09/23/20 21:00 92 L 09/23/20 20:00 99.4 F 95 16 109/64 95 Weight Admit Weight 181 kg Weight 158.803 kg Most Recent Monitor Data Heart Rate from ECG 87 NIBP 128/56 NIBP BP-Mean 80 Respiration from ECG 28 SpO2 96 I&O: 09/22/20 09/23/20 09/24/20 06:59 06:59 06:59 Intake Total 750 1780 920 Output Total 4050 2950 2600 Balance -3300 -1170 -1680 Result Diagrams: 09/23/20 04:09 09/24/20 04:39 Phys Exam - Physical Examination Constitutional: NAD HEENT: PERRLA, moist MMs faint crackles Cardiovascular: RRR, no significant murmur Gastrointestinal: soft, non-tender, positive bowel sounds Musculoskeletal: edema present Neurological: non-focal, moves all 4 limbs Psychiatric: normal affect, A&O x 3 Skin: no rash Dx/Plan - Plan Plan: Plan: 50yo male with morbid obesity, COPD and CHF presents w/ increased swelling and SOB Acute Hypoxic Respiratory Failure 2/2 COPD exac vs CHF exac -duonebs jeb q8h, prednisone (09/06-09/18) -continue IV lasix -I/O: -1.6L last 24 hours -needs cpap at night, will need outpt f/u to help set up -[place] 04/2019 showed right side chamber enlargement -TTE 09/23: Severely dilated RV -consulted Dr. Lorenzo: --> 09/20: increased milrinone to .375mcg/kg/min, increased Kdurr to [id number] BID, Dr. Lorenzo plans to discuss with infusion company possible outpatient care, feels outpatient milrinone necessary for HF and liver congestion, CM onboard - difficulty finding outpatient milrinone care with patient's insurance. Per Dr. Lorenzo, if unable to set-up, will attempt to wean milrinone - Bumex 2mg switched to torsemide 20mg BID Transaminitis, improving - AST/ALT 43/74 - hx: EtOH abuse and HF - RUQ abdominal US: hepatosteatosis, splenomegaly, biliary sludge, cholelithiasis - GI consulted: due to alcoholic hepatitis and right heart failure, no intervention needed - Ferritin ordered --78, unlikely hemochromatosis - will likely need milrinone gtt when he leaves to prevent liver enzymes from increasing A flutter s/p ablation - on eliquis 5mg bid - Dr. Lorenzo recs as above - consulted Dr Francisco: continue oral antiarrhythmic, oral anticoagulation, will need to lose weight to be candidate for ablation in future - replace K and Mg as needed - Dr. Lorenzo increased sotalol to 160 q12h (09/19), spoke with Dr. Francisco who agreed; SR 70-80s overnight on tele - continue to monitor on tele Diarrhea -resolved Hyponatremia, resolved -Na 137 -this seems to be a chronic issue, could be 2/2 to alcohol consumption -continue to monitor UTI, asymptomatic -UA + for leuks, bacteria -UCx: no growth -received rocephin x1 EtOH abuse -ASE protocol -on thiamine HFpEF -continue with home meds -Bumex 2mg BID - Dr. Lorenzo consulted, appreciate recs, as above -echo: EF 55-60%, poor quality due to body habitus -monitor I/O, daily weights Lymphedema - Chronic condition - Monitor skin for breakdown Dispo: continue diuresis on tele, will continue to f/u Dr. Lorenzo's recs Addendum - Attending - Attending Attestation Date/Time: 09/24/20 [id number] I personally evaluated the patient and discussed the management with Dr. Childs. I agree with the History, Examination, Assessment and Plan documented above with any addition or exceptions noted below. Appreciate Dr. Bettencourt recs. Awaiting CM to help set up home milrinone gtt.
[2020-09-24] MEDS ORDERED: Potassium Chloride 20 MEQ TAB PO SCH (09:00)
[2020-09-24] MEDS: Potassium Chloride 20 MEQ TAB PO SCH ×2 (09:49→17:38)
[2020-09-24] MEDS: Spironolactone 25 MG TAB PO SCH (09:49)
[2020-09-24] MEDS: Folic Acid 1 MG TAB PO SCH (09:50)
[2020-09-24] MEDS: AcetaZOLAMIDE 250 MG TAB PO SCH (09:50)
[2020-09-24] MEDS: Aspirin 81 mg Enteric Coated Tablet PO SCH (09:50)
[2020-09-24] MEDS: Apixaban 5 MG TAB PO SCH ×2 (09:50→20:55)
[2020-09-24] MEDS: Cyanocobalamin (Vitamin B-12) 1,000 MCG TAB PO SCH (09:50)
[2020-09-24] MEDS: Multivitamin W/ Minerals 1 TAB PO SCH (09:51)
[2020-09-24] MEDS: Thiamine 100 MG TAB PO SCH (09:51)
[2020-09-24] MEDS: Torsemide 20 MG TAB PO SCH ×2 (09:51→15:09)
[2020-09-24] MEDS: Sotalol HCl 80 MG TAB PO SCH ×2 (09:51→20:58)
[2020-09-24] MEDS: Magnesium Oxide 400 MG TAB PO SCH ×2 (09:51→20:54)
[2020-09-24] MEDS: Polyethylene Glycol 3350 17 GM Packet PO SCH (09:52)
--- NOTE | 2020-09-24 12:31 | PRG ---
DATE OF SERVICE: 09/24/2020 SERVICE: Advanced Heart Failure Cardiology Consult Service. SUBJECTIVE: Mr. Nikita Morgan had a good day. He was breathing easy. He is able to move and do as much as he wanted. However, there was some miscommunication about activities yesterday. He wanted to go walking, but no one came to help him walk. He did not get his shower done, so he was not happy with what happened yesterday. Otherwise, he has no other complaints. REVIEW OF SYSTEMS: GENERAL: There is no fever, chills, or productive cough. HEENT: There is no change in vision, hearing, or swallowing. PULMONARY: There is no shortness of breath. CARDIAC: There is no chest pain, palpitations, or syncope. GI: There is no nausea, vomiting, or diarrhea. : He is able to urinate on his own. MUSCULOSKELETAL: There are no new joint pains or muscle pains. INTEGUMENT: There is no new skin breakdown. NEUROLOGIC: There are no new focal deficits and weaknesses. CURRENT MEDICATIONS: Include 1. Albuterol/ipratropium nebs q.8 hours. 2. Apixaban 5 mg b.i.d. 3. Aspirin 81 mg daily. 4. Folic acid 1 mg daily. 5. Magnesium oxide 800 mg b.i.d. 6. Toprol-XL 25 mg p.o. q.12 hours. 7. Milrinone at 0.375 mcg/kg per minute. 8. Protonix 40 mg daily. 9. K-Dur 40 mEq p.o. b.i.d. 10. Sotalol 160 mg p.o. q.12 hours. 11. Spironolactone 25 mg p.o. daily. 12. Torsemide now at 20 mg twice a day. Telemetry was reviewed. He was in sinus rhythm this whole time for the last 24 hours. There are occasional PVCs and PACs. There are no concerning arrhythmias. PHYSICAL EXAMINATION: VITAL SIGNS: Heart rate is 78, blood pressure 107/58, his input and output are 920 in and 2600 out, so he is negative about 1500 mL. GENERAL: He is alert, conversational, reclined comfortably in bed. HEENT: EOMI. Oropharynx is benign with moist mucosa. NECK: He has a large diameter neck. His JVP is approximately 10 cm. PULMONARY: He has right basilar crackles, but his left lung is clear. CARDIAC: Regular rate and rhythm with 2/6 holosystolic murmur near the apex. ABDOMEN: Large, soft, nontender. Positive bowel sounds. EXTREMITIES: He has large diameter lower extremities. There is adipose tissue; however, he has decreased edema in his thighs and also from the knees to his feet. LABORATORY DATA: His chemistry from today are sodium 135, potassium 3.9, chloride 98, bicarb 27, BUN 22, creatinine 1.21. His AST has continued to decrease, now at 43; his ALT is now down to 74; and alk phosphatase is down to 198, so this is the lowest set of liver enzymes yet. ASSESSMENT: 50-year-old gentleman has right heart failure/cor pulmonale and likely heart failure with preserved ejection fraction. This combination caused liver congestion. Milrinone at 0.375 mcg/min is providing enough cardiac output by augmenting his right ventricle and decreased pulmonary hypertension that is decongesting his liver. Torsemide is providing sufficient diuresis at this point. He does have paroxysmal atrial fibrillation and proximal atrial flutter. Combination of sotalol 160 mg p.o. q.12 hours and Toprol-XL 25 mg twice a day is maintaining his sinus rhythm, keeps rate in control. RECOMMENDATIONS: Please see the following for my recommendations 1. Continue milrinone at 0.375 mcg/kg per minute until liver enzymes are cleared. 2. Work with Case Management to see if the patient can obtain outpatient milrinone. If this is not possible, we will need to titrate it off and substitute. 3. The algorithm for titration will be to decrease from 0.375 down to 0.25 mcg/kg per minute on the first night. 4. Run at 0.25 mcg/kg for the next 24 hours, then decrease down to 0.125 mcg/kg per minute overnight and after that, the next morning, stop. 5. We can try a low-dose Entresto at combination at the night when he has decreased down to 0.125 mcg/kg per minute, perhaps the low-dose Entresto can provide decreased pulmonary vascular resistance and provide enough vasodilation systemically that would help to augment his right heart when the milrinone is titrated off. It has been a pleasure taking care of Mr. Morgan. If you have any questions, please give me a call. The total visitation time is 40 minutes. Job ID: [id number] MTDD
[2020-09-25 04:29] LABS: ALT (SGPT) 68 U/L (8-55); AST (SGOT) 42 U/L (5-34); Albumin 3.2 g/dL (3.5-5.0); Alkaline Phosphatase 194 U/L (40-110); Anion Gap 16 mmol/L (10-20); BUN (Urea Nitrogen) 24 mg/dL (8.9-20.6); Calc. Creatinine Clearance 197 mL/min (70-130); Calcium 9.4 mg/dL (7.8-10.44); Carbon Dioxide 25 mmol/L (22-29); Chloride 98 mmol/L (98-107); Glucose 106 mg/dL (70-105); Magnesium 2.1 mg/dL (1.6-2.6); Potassium 4.2 mmol/L (3.5-5.1); Protein, Total 7.2 g/dL (6.0-8.3); Sodium 135 mmol/L (136-145)
--- NOTE | 2020-09-25 06:38 | PDOC.FM ---
- Subjective Subjective: Patient is resting comfortably in bed. No acute concerns. No events overnight. No chest pain/abdominal pain fevers or chills. - Objective MAR Reviewed: Yes Vital Signs & Weight: Vital Signs (12 hours) Pulse Resp BP Pulse Ox 09/25/20 05:03 22 H 98 09/24/20 23:28 98 09/24/20 20:58 84 111/58 L 09/24/20 20:00 93 L Weight Admit Weight 181 kg Weight 158.803 kg Most Recent Monitor Data Heart Rate from ECG 87 NIBP 128/56 NIBP BP-Mean 80 Respiration from ECG 28 SpO2 96 I&O: 09/23/20 09/24/20 09/25/20 06:59 06:59 06:59 Intake Total 1780 920 850 Output Total 2950 2600 1650 Balance -1170 -1680 -800 Result Diagrams: 09/23/20 04:09 09/25/20 03:35 Phys Exam - Physical Examination Constitutional: NAD HEENT: PERRLA, moist MMs faint crackles Cardiovascular: RRR, no significant murmur Gastrointestinal: soft, non-tender, positive bowel sounds trace edema Neurological: non-focal, moves all 4 limbs Psychiatric: normal affect, A&O x 3 Skin: no rash Dx/Plan - Plan Plan: 50yo male with morbid obesity, COPD and CHF presents w/ increased swelling and SOB Acute Hypoxic Respiratory Failure 2/2 COPD exac vs CHF exac -duonebs jeb q8h, prednisone (09/06-09/18) -continue IV lasix -I/O: -1.15L last 24 hours -needs cpap at night, will need outpt f/u to help set up -LO 04/2019 showed right side chamber enlargement -TTE 09/23: Markedly enlarged R atrium size. Severely dilated R ventricle. RV failure -consulted Dr. Lorenzo: --> 09/20: increased milrinone to .375mcg/kg/min, Dr. Lorenzo plans to discuss with infusion company possible outpatient care, feels outpatient milrinone necessary for HF and liver congestion, CM onboard - difficulty finding outpatient milrinone care with patient's insurance. Per Dr. Lorenzo, if unable to set-up by Wednesday 09/26, will attempt to wean milrinone Transaminitis, improving - AST/ALT 42/68 - hx: EtOH abuse and HF - RUQ abdominal US: hepatosteatosis, splenomegaly, biliary sludge, cholelithiasis - GI consulted: due to alcoholic hepatitis and right heart failure, no intervention needed - Ferritin ordered --78, unlikely hemochromatosis - per Dr. Lorenzo will need milrinone gtt when he leaves to prevent liver enzymes from increasing A flutter s/p ablation - on eliquis 5mg bid - Dr. Lorenzo recs as above - consulted Dr Francisco: continue oral antiarrhythmic, oral anticoagulation, will need to lose weight to be candidate for ablation in future - replace K and Mg as needed - Dr. Lorenzo increased sotalol to 160 q12h (09/19), spoke with Dr. Francisco who agreed; SR 70-80s overnight on tele - continue to monitor on tele Diarrhea -resolved Hyponatremia, resolved -Na 137 -this seems to be a chronic issue, could be 2/2 to alcohol consumption -continue to monitor UTI, asymptomatic -UA + for leuks, bacteria -UCx: no growth -received rocephin x1 EtOH abuse -on thiamine HFpEF -continue with home meds -Bumex 2mg BID changed to torsemide - Dr. Lorenzo consulted, appreciate recs, as above -prev echo: EF 55-60%, poor quality due to body habitus - TTE 09/23: Markedly enlarged R atrium size. Severely dilated R ventricle. RV failure -monitor I/O, daily weights Lymphedema - Chronic condition - Monitor skin for breakdown Dispo: continue diuresis on tele, will continue to f/u Dr. Lorenzo's recs, attempting outpatient milrinon gtt set-up Addendum - Attending - Attending Attestation Date/Time: 09/25/20 3041 I personally evaluated the patient and discussed the management with Dr. Childs I agree with the History, Examination, Assessment and Plan documented above with any addition or exceptions noted below. Awaiting milrinone gtt for home use with case management.
[2020-09-25] MEDS: Aspirin 81 mg Enteric Coated Tablet PO SCH (08:57)
[2020-09-25] MEDS: Magnesium Oxide 400 MG TAB PO SCH ×2 (08:57→20:50)
[2020-09-25] MEDS: Thiamine 100 MG TAB PO SCH (08:57)
[2020-09-25] MEDS: Multivitamin W/ Minerals 1 TAB PO SCH (08:57)
[2020-09-25] MEDS: Cyanocobalamin (Vitamin B-12) 1,000 MCG TAB PO SCH (08:58)
[2020-09-25] MEDS: Sotalol HCl 80 MG TAB PO SCH ×2 (08:59→20:50)
[2020-09-25] MEDS: Apixaban 5 MG TAB PO SCH ×2 (08:59→20:50)
[2020-09-25] MEDS: Folic Acid 1 MG TAB PO SCH (08:59)
[2020-09-25] MEDS: Spironolactone 25 MG TAB PO SCH (08:59)
[2020-09-25] MEDS: AcetaZOLAMIDE 250 MG TAB PO SCH (09:00)
[2020-09-25] MEDS: Torsemide 20 MG TAB PO SCH ×2 (09:00→13:53)
[2020-09-25] MEDS: Polyethylene Glycol 3350 17 GM Packet PO SCH (09:02)
[2020-09-25] MEDS: Potassium Chloride 20 MEQ TAB PO SCH ×2 (09:07→16:10)
--- NOTE | 2020-09-25 14:01 | PRG ---
DATE OF SERVICE: 09/25/2020 SERVICE: [facility] Consulting Service. SUBJECTIVE: Mr. Morgan had a good day. He felt good. He is breathing easy. He was able to participate with physical therapy. Since there is only one person, they did not walk down the danielle. He did stand up. He was walking in place and doing other exercises. He went through that without difficulties. REVIEW OF SYSTEMS: GENERAL: There is no fever, chills, or productive cough. HEENT: There is no change in vision, hearing, or swallowing. PULMONARY: There is no shortness of breath. CARDIAC: There is no complaints of chest pain or syncope. GI: There is no nausea, vomiting, diarrhea. : He is able to urinate on his own. MUSCULOSKELETAL: He has great knee strength. There are no complaints of muscle pains or joint pains. INTEGUMENT: There is no report of new skin breakdown. NEUROLOGIC: There are no new focal deficits or weaknesses. CURRENT MEDICATIONS: 1. Acetazolamide 250 mg daily. 2. Albuterol/ipratropium nebs q.8 hours. 3. Apixaban 5 mg p.o. b.i.d. 4. Aspirin 81 mg daily. 5. Vitamin B12, 2500 mcg daily. 6. Folic acid 1 mg daily. 7. Magnesium oxide 800 mg twice a day. 8. Toprol-XL 25 mg p.o. q.12 hours. 9. Milrinone currently at 0.375 mcg/kg/minute. 10. Protonix 40 mg daily. 11. K-Dur at 40 mEq twice a day. 12. Sotalol 160 mg p.o. q.12 hours. 13. Spironolactone 25 mg daily. 14. Torsemide at 20 mg twice a day. PHYSICAL EXAMINATION: Telemetry was reviewed. He is in sinus rhythm. However, overnight, there was one brief 4 beats of wide-complex ventricular tachycardia. After that there is about 7 beats of irregular wide-complex tachycardia so that could be ventricular tachycardia or atrial fibrillation with aberrancy. Since then, there are no other concerning arrhythmias. VITAL SIGNS: Include heart rate 81, blood pressure 106/59. His input and output yesterday were 1300 in and 2450 out. GENERAL: He is alert and conversational, relaxed, reclining comfortably in bed while on 2 L oxygen by nasal cannula. HEENT: Show EOMI. Oropharynx is benign with moist mucosa. PULMONARY: There are some velcro like crackles at the right base, but everywhere else is good air movement with clear to auscultation. CARDIAC: Regular rate and rhythm with normal S1, S2. There is 2/6 holosystolic murmur at left sternal border and also at apex. ABDOMEN: Large, soft, nontender. EXTREMITIES: Lower extremities warm, well perfused. There is a large diameter at the thighs and calves. There is still some edema, but there are palpable pulses bilaterally. LABORATORY VALUES: Sodium 135, potassium 4.2, chloride 98, bicarb 25, BUN 24, creatinine 1.02, and magnesium at 2.1. ASSESSMENT: 50-year-old gentleman has AHA stage C and [place] Heart Class III right ventricular heart failure. This is likely due to his lung disease and hypoventilation and pulmonary hypertension. His AST and ALT values have dropped the lowest ever has been. I believe this is a plateau. He also had probably a very short run of nonsustained ventricular tachycardia last night. This could be an adverse effect of milrinone. Combination of lowest liver enzymes, lack of ability to support milrinone as outpatient for him, and now paroxysmal wide-complex tachycardia suggest that It is best to start titrating off Milrinone now. We will need to find oral medication that can provide a level of substitution for milrinone. He has a paroxysmal atrial fibrillation and atrial flutter. Currently, it is well-controlled and maintaining sinus rhythm by combination of sotalol and Toprol-XL, so these need to be continued. He has ascites with combination of RV dysfunction and alcoholic and also fatty liver. He will need to have his diuretics in terms of both spironolactone and loop diuretics to keep that maintained. He also has electrolyte imbalance, so he will also always need electrolyte supplementation. Please see the following for my recommendations; 1. Titrate down Milrinone to 0.25 mcg/kg per minute tonight. 2. Titrate Milrinone down to 0.125 mcg/kg per minute on Saturday night. 3. On Saturday morning, stop Milrinone altogether and substitute with Entresto 24/26 mg q.12 hours. 4. Monitor him for about 24 hours, then he can be discharged afterwards. At discharge, he will need close followup to titrate his heart failure and diuretic medications. 5. Pleased to do a noncontrast CT to ensure that his lungs are clear. I suspect there is lymphadenopathy and possibly scarring. He had a right basal lung. It has been a pleasure taking care of Mr. Morgan. If any other questions, please give me a call. I will be rotating off service today. Visitation time is 40 minutes. Job ID: [id number] MTDD
--- NOTE | 2020-09-25 16:36 | PDOC.BPN ---
- Brief Progress Note discussed recs w/ Dr. Lorenzo. Decreasing milrinone tonight to 0.25. Tomorrow night, he would like us to decrease milrinone to 0.125. Saturday night, he wants milrinone stopped. He then wants us to start Entresto 24-26 mg BID on Saturday evening. 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
[2020-09-25 18:47] VITALS: BMI 24.2
[2020-09-26 04:18] LABS: ALT (SGPT) 57 U/L (8-55); AST (SGOT) 42 U/L (5-34); Albumin 3.2 g/dL (3.5-5.0); Alkaline Phosphatase 180 U/L (40-110); Anion Gap 16 mmol/L (10-20); BUN (Urea Nitrogen) 22 mg/dL (8.9-20.6); Calc. Creatinine Clearance 94 mL/min (70-130); Calcium 9.3 mg/dL (7.8-10.44); Carbon Dioxide 24 mmol/L (22-29); Chloride 98 mmol/L (98-107); Globulin 3.8 g/dL (2.4-3.5); Glucose 105 mg/dL (70-105); Potassium 4.1 mmol/L (3.5-5.1); Sodium 134 mmol/L (136-145)
--- NOTE | 2020-09-26 06:41 | PDOC.FM ---
- Subjective Subjective: Patient is resting comfortably in bed. No acute concerns, no events overnight. No chest pain, shortness of breath, abdominal pain, N/V. - Objective MAR Reviewed: Yes Vital Signs & Weight: Vital Signs (12 hours) Temp Pulse Resp BP Pulse Ox 09/26/20 03:48 98.1 F 84 16 90/53 L 91 L 09/25/20 22:16 80 20 09/25/20 20:50 75 09/25/20 20:00 98.7 F 79 16 113/61 91 L Weight Admit Weight 181 kg Weight 72.291 kg Most Recent Monitor Data Heart Rate from ECG 87 NIBP 128/56 NIBP BP-Mean 80 Respiration from ECG 28 SpO2 96 I&O: 09/24/20 09/25/20 09/26/20 06:59 06:59 06:59 Intake Total 920 1300 1977 Output Total 2600 2450 2875 Balance -1680 -1150 -898 Result Diagrams: 09/23/20 04:09 09/26/20 03:47 Phys Exam - Physical Examination Constitutional: NAD HEENT: PERRLA, moist MMs faint crackles Cardiovascular: RRR, no significant murmur Gastrointestinal: soft, non-tender, positive bowel sounds Musculoskeletal: edema present Neurological: non-focal, moves all 4 limbs Psychiatric: normal affect, A&O x 3 Skin: no rash Dx/Plan - Plan Plan: 50yo male with morbid obesity, COPD and CHF presents w/ increased swelling and SOB Acute Hypoxic Respiratory Failure 2/2 COPD exac vs CHF exac -duonebs jeb q8h, prednisone (09/06-09/18) -continue torsemide -I/O: -0.9L last 24 hours -needs cpap at night, will need outpt f/u to help set up -LO 04/2019 showed right side chamber enlargement -TTE 09/23: Markedly enlarged R atrium size. Severely dilated R ventricle. RV failure -Dr. Lorenzo recs: -09/25: decreased milrinone to .275, tonight will decrease milrinone to 0.125. Saturday night, he wants milrinone stopped. -Start Entresto 24-26 mg BID on Saturday evening 09/27 - continue to monitor LFTs Transaminitis, improving - AST/ALT 42/57 - hx: EtOH abuse and HF - RUQ abdominal US: hepatosteatosis, splenomegaly, biliary sludge, cholelithiasis - GI consulted: due to alcoholic hepatitis and right heart failure, no intervention needed - Ferritin ordered --78, unlikely hemochromatosis - Titrating down on milrinone A flutter s/p ablation - on eliquis 5mg bid - Dr. Lorenzo recs as above - consulted Dr Francisco: continue oral antiarrhythmic, oral anticoagulation, will need to lose weight to be candidate for ablation in future - replace K and Mg as needed - Dr. Lorenzo increased sotalol to 160 q12h (09/19), spoke with Dr. Francisco who agreed; 24 sec aflutter overnight - continue to monitor on tele Diarrhea -resolved Hyponatremia, resolved -Na 137 -this seems to be a chronic issue, could be 2/2 to alcohol consumption -continue to monitor UTI, asymptomatic -UA + for leuks, bacteria -UCx: no growth -received rocephin x1 EtOH abuse -on thiamine HFpEF -continue with home meds -Bumex 2mg BID changed to torsemide - Dr. Lorenzo consulted, appreciate recs, as above -prev echo: EF 55-60%, poor quality due to body habitus -TTE 09/23: Markedly enlarged R atrium size. Severely dilated R ventricle. RV failure -monitor I/O, daily weights Lymphedema - Chronic condition - Monitor skin for breakdown Dispo: continue diuresis on tele, will continue to f/u Dr. Lorenzo's recs, weaning milrinone Addendum - Attending - Attending Attestation Date/Time: 09/26/20 1107 I personally evaluated the patient and discussed the management with Dr. Childs. I agree with the History, Examination, Assessment and Plan documented above with any addition or exceptions noted below. Patient reports feeling well. Continue to wean Milrinone per HF team recs. Continue other chronic meds.
[2020-09-26] MEDS: Cyanocobalamin (Vitamin B-12) 1,000 MCG TAB PO SCH (09:27)
[2020-09-26] MEDS: Apixaban 5 MG TAB PO SCH ×2 (09:27→20:49)
[2020-09-26] MEDS: Folic Acid 1 MG TAB PO SCH (09:27)
[2020-09-26] MEDS: Sotalol HCl 80 MG TAB PO SCH ×2 (09:27→20:49)
[2020-09-26] MEDS: Spironolactone 25 MG TAB PO SCH (09:28)
[2020-09-26] MEDS: Magnesium Oxide 400 MG TAB PO SCH ×2 (09:28→20:49)
[2020-09-26] MEDS: Potassium Chloride 20 MEQ TAB PO SCH ×2 (09:28→16:23)
[2020-09-26] MEDS: Torsemide 20 MG TAB PO SCH ×2 (09:28→14:19)
[2020-09-26] MEDS: Thiamine 100 MG TAB PO SCH (09:28)
[2020-09-26] MEDS: Multivitamin W/ Minerals 1 TAB PO SCH (09:28)
[2020-09-26] MEDS: Polyethylene Glycol 3350 17 GM Packet PO SCH (09:29)
[2020-09-26] MEDS: Aspirin 81 mg Enteric Coated Tablet PO SCH (09:29)
--- NOTE | 2020-09-26 15:22 | PDOC.EP ---
- Subjective Date: 09/26/20 Time: 15:20 Interval History: no new cardiac events over the weekend. He denies any heart racing or palpitations. - Review of Systems Constitutional: reports: weakness. denies: chills, fever, malaise, sweats Respiratory: reports: SOB with excertion. denies: cough, dry, shortness of breath Cardiology: reports: edema. denies: chest pain, heart racing, light headedness, orthopnea Gastrointestinal: denies: abdominal pain, constipation, diarrhea - Objective Allergies/Adverse Reactions: Allergies Allergy/AdvReac Type Severity Reaction Status Date / Time warfarin Allergy Rash Verified 09/07/20 06:16 Current Medications Albuterol/Ipratropium (Ipratropium/Albuterol Sulfate 3 Ml Neb) 3 ml NEB [id number] PRN PRN Reason: SOB &/or Wheezing Albuterol/Ipratropium (Ipratropium/Albuterol Sulfate 3 Ml Neb) 3 ml NEB [id number] [facility] Last Admin: 09/26/20 14:40 Dose: 3 ml Documented by: Apixaban (Apixaban 5 Mg Tab) 5 mg PO BID [facility] Last Admin: 09/26/20 09:27 Dose: 5 mg Documented by: Aspirin (Aspirin 81 Mg Enteric Coated Tablet) 81 mg PO DAILY [facility] Last Admin: 09/26/20 09:29 Dose: 81 mg Documented by: Cyanocobalamin (Cyanocobalamin (Vitamin B-12) 1,000 Mcg Tab) 2,500 mcg PO DAILY [facility] Last Admin: 09/26/20 09:27 Dose: 2,500 mcg Documented by: Folic Acid (Folic Acid 1 Mg Tab) 1 mg PO DAILY [facility] Last Admin: 09/26/20 09:27 Dose: 1 mg Documented by: Milrinone Lactate/Dextrose (Milrinone Lactate/D5w) 100 mls @ 13.485 mls/hr IVPB INF [facility] Stop: 09/26/20 19:00 Last Admin: 09/26/20 08:29 Dose: 100 mls Documented by: Milrinone Lactate/Dextrose 20 (mg/ Device) 100 mls @ 2.711 mls/hr IV INF [facility]; Protocol Iron/Minerals/Multivitamins (Multivitamin W/ Minerals 1 Tab) 1 tab PO DAILY [facility] Last Admin: 09/26/20 09:28 Dose: 1 tab Documented by: Magnesium Oxide (Magnesium Oxide 400 Mg Tab) 800 mg PO BID [facility] Last Admin: 09/26/20 09:28 Dose: 800 mg Documented by: Metoprolol Succinate (Metoprolol Succinate Xl 25 Mg Tab) 25 mg PO Q12HR [facility] Last Admin: 09/26/20 09:29 Dose: 25 mg Documented by: Metoprolol Tartrate (Metoprolol Tartrate 5 Mg/5 Ml Vial) 5 mg IVP Q8H PRN PRN Reason: HR>130 Last Admin: 09/11/20 09:34 Dose: 5 mg Documented by: Ondansetron HCl (Ondansetron Odt 4 Mg Tab) 4 mg PO Q6H PRN PRN Reason: Nausea/Vomiting Ondansetron HCl (Ondansetron Pf 4 Mg/2 Ml Vial) 4 mg IVP Q6H PRN PRN Reason: Nausea/Vomiting Pantoprazole Sodium (Pantoprazole 40 Mg Tab) 40 mg PO [facility] Last Admin: 09/26/20 09:29 Dose: 40 mg Documented by: Polyethylene Glycol (Polyethylene Glycol 3350 17 Gm Packet) 17 gm PO DAILY [facility] Last Admin: 09/26/20 09:29 Dose: Not Given Documented by: Potassium Chloride (Potassium Chloride 20 Meq Tab) 40 meq PO BID[facility] Last Admin: 09/26/20 09:28 Dose: 40 meq Documented by: Sodium Chloride (Flush - Normal Saline 10 Ml Syringe) 10 ml IVF PRN PRN PRN Reason: Saline Flush Last Admin: 09/17/20 09:30 Dose: 10 ml Documented by: Sotalol HCl (Sotalol Hcl 80 Mg Tab) 160 mg PO Q12HR [facility] Last Admin: 09/26/20 09:27 Dose: 160 mg Documented by: Spironolactone (Spironolactone 25 Mg Tab) 25 mg PO [facility] Last Admin: 09/26/20 09:28 Dose: 25 mg Documented by: Thiamine HCl (Thiamine 100 Mg Tab) 100 mg PO DAILY [facility] Last Admin: 09/26/20 09:28 Dose: 100 mg Documented by: Torsemide (Torsemide 20 Mg Tab) 20 mg PO 0900,1400 [facility] Last Admin: 09/26/20 14:19 Dose: 20 mg Documented by: Vital Signs & Weight: Vital Signs Temp Pulse Pulse Pulse Resp BP BP 09/26/20 14:40 78 16 09/26/20 12:10 98.1 F 89 20 09/26/20 11:20 85 83 128/77 09/26/20 09:27 76 115/69 09/26/20 08:36 98.5 F 76 15 09/26/20 08:00 09/26/20 07:04 20 09/26/20 07:03 82 20 09/26/20 03:48 98.1 F 84 16 BP BP Pulse Ox Pulse Ox Pulse Ox 09/26/20 14:40 92 L 09/26/20 12:10 128/77 93 L 09/26/20 11:20 122/69 92 L 94 L 09/26/20 09:27 09/26/20 08:36 110/66 96 09/26/20 08:00 96 09/26/20 07:04 98 09/26/20 07:03 98 09/26/20 03:48 90/53 L 91 L Admit Weight 399 lb 0.587 oz Weight 159 lb 6 oz I/O: I/O 09/25/20 09/26/20 09/27/20 06:59 06:59 06:59 Intake Total 1300 1977 480 Output Total 1670 0985 520 Balance -1150 -898 -40 - Quality Measures Condition: Atrial Fibrillation/Flutter (hx or current) CV meds: Eliquis: Yes - Physical Exam General: alert & oriented x3, no apparent distress, speech clear, affect appropriate. negative: appears well HEENT: mucus membranes moist, normocephaly, EOMI Neck: supple neck, midline trachea. negative: no JVD/HJR Cardiology: regular rate and rhythm, no murmur Lungs: clear to auscultation, normal breath sounds, decreased breath sounds Neurology: cranial nerve 2-12 intact, grossly intact, coordination normal - Labs Result Diagrams: 09/23/20 04:09 09/26/20 03:47 - EKG Interpretation EKG Method: Telemetry EKG shows: Sinus rhythm - Assessment/Plan Assessment/Plan: 1. Paroxysmal atrial fibrillation/atypical atrial flutter with rapid ventricular response, responsive to sotalol. 2. Diastolic congestive heart failure, left ventricular ejection fraction 55%. 3. Hypokalemia and mild hypomagnesemia at 1.9. 4. Morbid obesity. 5. Chronic lymphedema. 6. Transaminitis. 7. NSVT 09/19: Had recurrent PxAF and sotalol was increased to 160mg BID. ECGs 2-3 hrs post sotalol to monitor QTc with increased dose 09/20: SR overnight. Labs in AM to monitor electrolytes. Goal: K>4.0 and Mag >2.0 On eliquis for OAC. 09/21: QT/QTc 390/474msec after dose last night. 406/479msec at 1100 09/21. Had Paroxysmal atrial flutter/PAT last night. No sustained arrhythmias, frequent runs around 1800 and 2300 last night. Longest episode 25second. Would not increase sotalol futher at this time. He is limited to medical management unless significant weight loss is achieved. Keep Mag >2 and K >4 with sotalol. 09/22: continues to have paroxysmal atrial tachycardia/ fib episodes up to 25 seconds in duration largely well as sleep. I suspect this is due to sleep apne a. Recommend he wear CPAP at night and consider outpatient sleep study. otherwise no changes. continue sotalol and Eliquis. Continue electrolyte replacement as needed 09/23. Remains clinically stable. No new issues. Still no acceptance in NH. Still on Milrinone drip. 09/26: Rhythm stable overall with no significant changes recently. Continues to have short PAT runs while asleep. Also had a short Nonsustained VT event. No procedures planned.Continue medication management with sotalol and eliquis. also toprol XL, especially now with NSVT seen. EP signing off. 6 week follow up requested.
[2020-09-26] MEDS ORDERED: Milrinone Lactate/D5W 20 MG in Premix Bag 1 BAG IV SCH (19:01)
[2020-09-27 04:43] LABS: ALT (SGPT) 53 U/L (8-55); AST (SGOT) 45 U/L (5-34); Albumin 3.3 g/dL (3.5-5.0); Alkaline Phosphatase 177 U/L (40-110); Anion Gap 16 mmol/L (10-20); BUN (Urea Nitrogen) 20 mg/dL (8.9-20.6); Bilirubin, Total 0.9 mg/dL (0.2-1.2); Calc. Creatinine Clearance 89 mL/min (70-130); Calcium 9.5 mg/dL (7.8-10.44); Carbon Dioxide 23 mmol/L (22-29); Chloride 99 mmol/L (98-107); Glucose 92 mg/dL (70-105); Potassium 4.3 mmol/L (3.5-5.1); Protein, Total 7.3 g/dL (6.0-8.3); Sodium 134 mmol/L (136-145)
--- NOTE | 2020-09-27 07:23 | PDOC.FM ---
- Subjective Subjective: Patient is resting comfortably in bed. No events overnight, no acute concerns. No chest pain, shortness of breath, abdominal pain, N/V. - Objective MAR Reviewed: Yes Vital Signs & Weight: Vital Signs (12 hours) Temp Pulse Resp BP Pulse Ox 09/27/20 07:17 96 09/27/20 07:16 75 20 96 09/27/20 04:00 99.5 F 71 15 94/55 L 97 09/26/20 23:43 72 35 H 09/26/20 22:10 85 22 H 09/26/20 20:49 77 Weight Admit Weight 181 kg Weight 71.259 kg Most Recent Monitor Data Heart Rate from ECG 87 NIBP 128/56 NIBP BP-Mean 80 Respiration from ECG 28 SpO2 96 I&O: 09/26/20 09/27/20 09/28/20 06:59 06:59 06:59 Intake Total 1977 1658.7 Output Total 2875 2290 Balance -898 -631.3 Result Diagrams: 09/23/20 04:09 09/27/20 03:58 Phys Exam - Physical Examination Constitutional: NAD HEENT: PERRLA, moist MMs faint crackles throughout Cardiovascular: RRR, no significant murmur Gastrointestinal: soft, non-tender, positive bowel sounds Musculoskeletal: no edema, pulses present Neurological: non-focal, moves all 4 limbs Psychiatric: normal affect, A&O x 3 Skin: no rash Dx/Plan - Plan Plan: 50yo male with morbid obesity, COPD and CHF presents w/ increased swelling and SOB Acute Hypoxic Respiratory Failure 2/2 COPD exac vs CHF exac -duonebs jeb q8h, prednisone (09/06-09/18) -continue torsemide -I/O: -0.6L last 24 hours -needs cpap at night, will need outpt f/u to help set up -LO 04/2019 showed right side chamber enlargement -TTE 09/23: Markedly enlarged R atrium size. Severely dilated R ventricle. RV failure -Dr. Lorenzo recs: -continue to titrate off milrinone, at 0.125 mcg/kg/min right now, will stop tonight and start Entresto 24-26 mg BID tonight - continue to monitor LFTs - PT recs, rehab vs SNU, patient does not wish to go to facility, plans to go home Transaminitis, improving - AST/ALT 45/53 - hx: EtOH abuse and HF - RUQ abdominal US: hepatosteatosis, splenomegaly, biliary sludge, cholelithiasis - GI consulted: due to alcoholic hepatitis and right heart failure, no interve ntion needed - Ferritin ordered --78, unlikely hemochromatosis - Titrating down on milrinone A flutter s/p ablation - on eliquis 5mg bid - Dr. Lorenzo recs as above - consulted Dr Francisco: continue oral antiarrhythmic, oral anticoagulation, will need to lose weight to be candidate for ablation in future - replace K and Mg as needed; , signed off 09/27, with 6 week f/u recommended - Dr. Lorenzo increased sotalol to 160 q12h (09/19), spoke with Dr. Francisco who agreed - continue to monitor on tele Diarrhea -resolved Hyponatremia, resolved -Na 137 -this seems to be a chronic issue, could be 2/2 to alcohol consumption -continue to monitor UTI, asymptomatic -UA + for leuks, bacteria -UCx: no growth -received rocephin x1 EtOH abuse -on thiamine HFpEF -continue with home meds -Bumex 2mg BID changed to torsemide - Dr. Lorenzo consulted, appreciate recs, as above -prev echo: EF 55-60%, poor quality due to body habitus -TTE 09/23: Markedly enlarged R atrium size. Severely dilated R ventricle. RV failure -monitor I/O, daily weights Lymphedema - Chronic condition - Monitor skin for breakdown Dispo: continue diuresis on tele, will continue to f/u Dr. Lorenzo's recs, weaning milrinone, likely d/c home tomorrow Addendum - Attending - Attending Attestation Date/Time: 09/27/20 9416 I personally evaluated the patient and discussed the management with Dr. Childs. I agree with the History, Examination, Assessment and Plan documented above with any addition or exceptions noted below. Continue Milrinone wean per HF team. Hopeful to dc home tomorrow.
[2020-09-27] MEDS: Potassium Chloride 20 MEQ TAB PO SCH ×2 (08:37→17:45)
[2020-09-27] MEDS: Sotalol HCl 80 MG TAB PO SCH ×2 (08:38→21:15)
[2020-09-27] MEDS: Magnesium Oxide 400 MG TAB PO SCH ×2 (08:38→21:15)
[2020-09-27] MEDS: Cyanocobalamin (Vitamin B-12) 1,000 MCG TAB PO SCH (08:38)
[2020-09-27] MEDS: Aspirin 81 mg Enteric Coated Tablet PO SCH (08:39)
[2020-09-27] MEDS: Folic Acid 1 MG TAB PO SCH (08:39)
[2020-09-27] MEDS: Torsemide 20 MG TAB PO SCH ×2 (08:40→15:09)
[2020-09-27] MEDS: Apixaban 5 MG TAB PO SCH ×2 (08:40→21:15)
[2020-09-27] MEDS: Polyethylene Glycol 3350 17 GM Packet PO SCH (08:40)
[2020-09-27] MEDS: Multivitamin W/ Minerals 1 TAB PO SCH (08:40)
[2020-09-27] MEDS: Thiamine 100 MG TAB PO SCH (08:43)
[2020-09-27] MEDS: Spironolactone 25 MG TAB PO SCH (11:20)
[2020-09-27] MEDS ORDERED: Milrinone Lactate/D5W 20 MG in Premix Bag 1 BAG IVPB SCH (16:30)
[2020-09-28 04:59] LABS: ALT (SGPT) 53 U/L (8-55); AST (SGOT) 41 U/L (5-34); Albumin 3.4 g/dL (3.5-5.0); Alkaline Phosphatase 173 U/L (40-110); Anion Gap 15 mmol/L (10-20); BUN (Urea Nitrogen) 19 mg/dL (8.9-20.6); Bilirubin, Total 0.8 mg/dL (0.2-1.2); Calc. Creatinine Clearance 219 mL/min (70-130); Calcium 9.7 mg/dL (7.8-10.44); Carbon Dioxide 28 mmol/L (22-29); Chloride 98 mmol/L (98-107); Globulin 4.1 g/dL (2.4-3.5); Glucose 102 mg/dL (70-105); Potassium 4.2 mmol/L (3.5-5.1); Protein, Total 7.5 g/dL (6.0-8.3); Sodium 137 mmol/L (136-145)
--- NOTE | 2020-09-28 06:11 | PDOC.FM ---
- Subjective Subjective: Patient is resting comfortably in bed. Reports no Chest Pain, SOB, abdominal pain, N/V. States that he is ready to leave today. When discussing recommendations PT made - Objective MAR Reviewed: Yes Vital Signs & Weight: Vital Signs (12 hours) Temp Pulse Resp BP BP Pulse Ox 09/28/20 04:00 98.9 F 64 22 H 96/50 L 95 09/28/20 00:20 66 18 115/69 96 09/28/20 00:05 90 L 09/27/20 23:04 72 19 09/27/20 22:32 72 18 90 L 09/27/20 21:15 78 133/71 09/27/20 20:20 98.4 F 78 18 112/59 L 95 Weight Admit Weight 181 kg Weight 158 kg Most Recent Monitor Data Heart Rate from ECG 87 NIBP 128/56 NIBP BP-Mean 80 Respiration from ECG 28 SpO2 96 I&O: 09/26/20 09/27/20 09/28/20 06:59 06:59 06:59 Intake Total 1976 1658.7 800.4 Output Total 2875 2290 2250 Balance -898 -631.3 -1449.6 Result Diagrams: 09/23/20 04:09 09/28/20 04:15 Phys Exam - Physical Examination Constitutional: NAD HEENT: PERRLA, moist MMs faint crackles Cardiovascular: RRR, no significant murmur Gastrointestinal: soft, non-tender, positive bowel sounds Musculoskeletal: edema present Neurological: non-focal, moves all 4 limbs Psychiatric: normal affect, A&O x 3 Skin: no rash Dx/Plan - Plan Plan: 50yo male with morbid obesity, COPD and CHF presents w/ increased swelling and SOB Acute Hypoxic Respiratory Failure 2/2 COPD exac vs CHF exac -duonebs jeb q8h, prednisone (09/06-09/18) -continue torsemide -I/O: -0.6L last 24 hours -needs cpap at night, will need outpt f/u to help set up -LO 04/2019 showed right side chamber enlargement -TTE 09/23: Markedly enlarged R atrium size. Severely dilated R ventricle. RV failure -Dr. Lorenzo recs: -Milrinone stopped 09/27, Entresto 24-26 mg BID started 09/27, will leave on this medication -Can be d/c with Outpatient HF follow up - PT recs, rehab vs SNU, patient does not wish to go to facility, notes insurance will never cover it, plans to go home Transaminitis, improving - AST/ALT 41/53 - hx: EtOH abuse and HF - RUQ abdominal US: hepatosteatosis, splenomegaly, biliary sludge, cholelithiasis - GI consulted: due to alcoholic hepatitis and right heart failure, no intervention needed - Ferritin ordered --78, unlikely hemochromatosis - milrinone d/c , recommend outpatient follow up on LFTs on d/c A flutter s/p ablation - on eliquis 5mg bid - Dr. Lorenzo recs as above - consulted Dr Francisco: continue oral antiarrhythmic, oral anticoagulation, will need to lose weight to be candidate for ablation in future - replace K and Mg as needed; , signed off 09/27, with 6 week f/u recommended - Dr. Lorenzo increased sotalol to 160 q12h (09/19), spoke with Dr. Francisco who agreed - continue to monitor on tele Diarrhea -resolved Hyponatremia, resolved -Na 137 -this seems to be a chronic issue, could be 2/2 to alcohol consumption -continue to monitor UTI, asymptomatic -UA + for leuks, bacteria -UCx: no growth -received rocephin x1 EtOH abuse -on thiamine HFpEF -continue with home meds -Bumex 2mg BID changed to torsemide - Dr. Lorenzo consulted, appreciate recs, as above -prev echo: EF 55-60%, poor quality due to body habitus -TTE 09/23: Markedly enlarged R atrium size. Severely dilated R ventricle. RV fa ilure -monitor I/O, daily weights Lymphedema - Chronic condition - Monitor skin for breakdown Dispo: continue diuresis on tele, will continue to f/u Dr. Lorenzo's recs, weaning milrinone, likely d/c home tomorrow Addendum - Attending - Attending Attestation Date/Time: 09/28/20 [id number] I personally evaluated the patient and discussed the management with Dr. Childs. I agree with the History, Examination, Assessment and Plan documented above with any addition or exceptions noted below. Patient now off Milrinone, continued to diurese well. On Entresto and tolerating well. He needs short term follow up outpatient with Cardiology and HF team. He is resistant to any dispo other than home, and so with his stability, he should be discharged home today.
[2020-09-28 07:27] VITALS: TEMP 97.8
[2020-09-28] MEDS: Magnesium Oxide 400 MG TAB PO SCH (10:19)
[2020-09-28] MEDS: Sotalol HCl 80 MG TAB PO SCH (10:19)
[2020-09-28] MEDS: Potassium Chloride 20 MEQ TAB PO SCH (10:19)
[2020-09-28] MEDS: Cyanocobalamin (Vitamin B-12) 1,000 MCG TAB PO SCH (10:20)
[2020-09-28] MEDS: Multivitamin W/ Minerals 1 TAB PO SCH (10:20)
[2020-09-28] MEDS: Torsemide 20 MG TAB PO SCH (10:21)
[2020-09-28] MEDS: Folic Acid 1 MG TAB PO SCH (10:22)
[2020-09-28] MEDS: Apixaban 5 MG TAB PO SCH (10:22)
[2020-09-28] MEDS: Thiamine 100 MG TAB PO SCH (10:22)
[2020-09-28] MEDS: Spironolactone 25 MG TAB PO SCH (10:22)
[2020-09-28] MEDS: Polyethylene Glycol 3350 17 GM Packet PO SCH (10:22)
[2020-09-28] MEDS: Aspirin 81 mg Enteric Coated Tablet PO SCH (10:22)
[2020-09-28 12:18] VITALS: BP 108/60
== END 2020-09-28 15:17 | disposition home or self-care (01) | DRG 291 ==
LOC: ERS 20:02 → T4-A 21:30 → 2NO 09-08 12:10 → IMCU/EMU 09-11 13:03 → 2NO 09-13 20:29
PROVIDERS: ADMIT Family Medicine; ATTEND Family Medicine
PROC: 8E0ZXY6 Isolation (ICD-10-PCS; principal; 2020-09-05)
PROC: 02HV33Z Insertion of Infusion Device into Superior Vena Cava, Percutaneous Approach (ICD-10-PCS; 2020-09-11)
DX: I13.0 Hypertensive heart and chronic kidney disease with heart failure and stage 1 through stage 4 chronic kidney disease, or unspecified chronic kidney disease (principal); J96.21 Acute and chronic respiratory failure with hypoxia; J96.22 Acute and chronic respiratory failure with hypercapnia; I50.33 Acute on chronic diastolic (congestive) heart failure; J44.1 Chronic obstructive pulmonary disease with (acute) exacerbation; E87.1 Hypo-osmolality and hyponatremia; N39.0 Urinary tract infection, site not specified; R65.10 Systemic inflammatory response syndrome (SIRS) of non-infectious origin without acute organ dysfunction; E87.2 Acidosis; Z68.43 Body mass index [BMI] 50.0-59.9, adult; I47.2 Ventricular tachycardia; Z20.828 Contact with and (suspected) exposure to other viral communicable diseases; E66.01 Morbid (severe) obesity due to excess calories; E78.5 Hyperlipidemia, unspecified; I27.20 Pulmonary hypertension, unspecified; K70.10 Alcoholic hepatitis without ascites; G47.33 Obstructive sleep apnea (adult) (pediatric); K70.9 Alcoholic liver disease, unspecified; R19.7 Diarrhea, unspecified; I48.0 Paroxysmal atrial fibrillation; G40.909 Epilepsy, unspecified, not intractable, without status epilepticus; F17.210 Nicotine dependence, cigarettes, uncomplicated; F10.10 Alcohol abuse, uncomplicated; I89.0 Lymphedema, not elsewhere classified; N18.9 Chronic kidney disease, unspecified; Z90.49 Acquired absence of other specified parts of digestive tract; Z88.8 Allergy status to other drugs, medicaments and biological substances; Z79.82 Long term (current) use of aspirin; Z79.899 Other long term (current) drug therapy; Z99.81 Dependence on supplemental oxygen
CPT/HCPCS: 36415; 36416; 36569; 36600; 71045; 71275; 76705; 80053; 81003; 81015; 82550; 82728; 82805; 83605; 83690; 83735; 83880; 84145; 84484; 85014; 85018; 85025; 85049; 85379; 86705; 86706; 86803; 87040; 87086; 87350; 87517; 87522; 87804; 93005; 93010; 93306; 93975; 94640; 94660; 96365; 96366; 96372; 96374; 96375; C1751; J0692; J0696; J1100; J1644; J1650; J1940; J2260; J3370; J3475; J3490; J7512; J7611; J7620; Q9967; U0002

== ENCOUNTER 2020-10-07 14:13 | Emergency (ER) | payer OTHER ==
[2020-10-07 14:38] LABS: #Basophils 0.1 thou/uL (0.0-0.2); #Eosinphils 0.4 thou/uL (0.0-0.7); #Lymphocytes 4.4 thou/uL (1.20-3.40); #Monocytes 0.9 thou/uL (0.11-0.59); #Neutrophils 6.8 thou/uL (1.40-6.50); %Basophils 0.8 % (0.0-1.0); %Eosinophils 3.2 % (0.0-10.0); %Lymphocytes 34.7 % (21.0-51.0); %Monocytes 7.2 % (0.0-10.0); %Neutrophils 54.1 % (42.0-75.0); Hemoglobin 11.7 g/dL (14.0-18.0); Mean Corpuscular HGB CONC 33.2 g/dL (32.0-36.0); Mean Corpuscular Volume 81.4 fL (78.0-98.0); Mean Platelet Volume 9.3 fL (7.4-10.4); Platelet Count 288 thou/uL (130-400); RBC Distribution Width 16.4 % (11.5-14.5); Red Blood Cell (RBC) Count 4.34 mill/uL (4.70-6.10); White Blood Cell (WBC) Count 12.5 thou/uL (4.8-10.8)
[2020-10-07 14:57] LABS: ALT (SGPT) 20 U/L (8-55); AST (SGOT) 29 U/L (5-34); Albumin 3.4 g/dL (3.5-5.0); Alkaline Phosphatase 150 U/L (40-110); Anion Gap 17 mmol/L (10-20); BUN (Urea Nitrogen) 21 mg/dL (8.9-20.6); Calc. Creatinine Clearance 0 mL/min (70-130); Calcium 9.2 mg/dL (7.8-10.44); Carbon Dioxide 25 mmol/L (22-29); Chloride 83 mmol/L (98-107); Glucose 94 mg/dL (70-105); Potassium 5.3 mmol/L (3.5-5.1); Protein, Total 7.4 g/dL (6.0-8.3); Sodium 120 mmol/L (136-145)
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
== END 2020-10-07 17:55 | disposition left against medical advice (07) ==
LOC: ERS 14:13
DX: N17.9 Acute kidney failure, unspecified (principal); E78.5 Hyperlipidemia, unspecified; J44.9 Chronic obstructive pulmonary disease, unspecified; I48.91 Unspecified atrial fibrillation; E87.1 Hypo-osmolality and hyponatremia; I89.0 Lymphedema, not elsewhere classified; F17.210 Nicotine dependence, cigarettes, uncomplicated; F17.220 Nicotine dependence, chewing tobacco, uncomplicated; Z79.82 Long term (current) use of aspirin; Z79.899 Other long term (current) drug therapy
CPT/HCPCS: 80053; 84484; 85025; 93005; 94760

== ENCOUNTER 2020-10-12 03:13 | Inpatient (IN) | payer OTHER ==
[2020-10-12] MEDS ORDERED: Midazolam HCl 2 mg/2 ml Vial ONE (03:17)
[2020-10-12] MEDS ORDERED: Vancomycin 1 GM/200 ML BAG ONE (03:22)
[2020-10-12] MEDS ORDERED: metroNIDAZOLE 500 MG/100 ML BAG ONE (03:22)
[2020-10-12] MEDS ORDERED: Racepinephrine 2.25% 0.5 ML NEB ONE (03:22)
[2020-10-12] MEDS ORDERED: Boostrix 0.5 ML (Tdap) VIAL ONE (03:36)
[2020-10-12 03:56] LABS: Hemoglobin 11.8 g/dL (14.0-18.0); Mean Corpuscular HGB CONC 32.9 g/dL (32.0-36.0); Mean Corpuscular Hemoglobin 26.9 pg (27.0-31.0); Mean Corpuscular Volume 81.6 fL (78.0-98.0); Mean Platelet Volume 8.6 fL (7.4-10.4); Platelet Count 278 thou/uL (130-400); RBC Distribution Width 16.8 % (11.5-14.5); White Blood Cell (WBC) Count 15.2 thou/uL (4.8-10.8)
[2020-10-12 04:01] LABS: Prothrombin Time 13.6 sec (12.0-14.7)
[2020-10-12] MEDS ORDERED: Promethazine HCl 25 MG/ML VIAL IM PRN ×3 (04:03→15:53)
[2020-10-12] MEDS ORDERED: Dextrose 50% Abboject 50 ML SYRINGE SLOW IVP PRN (04:03)
[2020-10-12] MEDS ORDERED: HumaLOG 300 UNITS/3 ML VIAL SC PRN (04:03)
[2020-10-12] MEDS ORDERED: Dextrose 5% in Water 1,000 ML IV PRN (04:03)
[2020-10-12 04:06] LABS: ALT (SGPT) 15 U/L (8-55); AST (SGOT) 21 U/L (5-34); Albumin 3.5 g/dL (3.5-5.0); Alcohol 324 mg/dL (Less than 10); Alkaline Phosphatase 139 U/L (40-110); Anion Gap 19 mmol/L (10-20); BUN (Urea Nitrogen) 18 mg/dL (8.9-20.6); Bilirubin, Total 0.6 mg/dL (0.2-1.2); Calc. Creatinine Clearance 0 mL/min (70-130); Calcium 8.7 mg/dL (7.8-10.44); Carbon Dioxide 25 mmol/L (22-29); Chloride 85 mmol/L (98-107); Globulin 4.1 g/dL (2.4-3.5); Glucose 99 mg/dL (70-105); Protein, Total 7.6 g/dL (6.0-8.3); Sodium 124 mmol/L (136-145)
[2020-10-12] MEDS ORDERED: Morphine 2 MG/ML VIAL SLOW IVP PRN (04:10)
[2020-10-12 04:31] LABS: Band 3 % (5-11); Eosinophils 3 % (0-10); Lymphocytes 50 % (21-51); MDiff Complete? YES; Monocytes 6 % (0-10); Neutrophil 37 % (42-75); Reactive Lymphocytes 1 % (0-10)
[2020-10-12] MEDS ORDERED: Morphine 2 MG/ML VIAL ONE (04:36)
[2020-10-12] MEDS ORDERED: Gentamicin 5 MG in Sodium Chloride 0.9% 100 ML IVPB SCH (05:00)
[2020-10-12 05:59] LABS: SARS-CoV-2 NAA Rapid Test Not Detected (NotDetected)
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
[2020-10-12] MEDS: Gentamicin Sulfate 120 MG in Premix Bag 1 BAG IVPB SCH ×3 (06:50→21:31)
[2020-10-12] MEDS ORDERED: Acetaminophen 500 MG TAB ONE (06:50)
[2020-10-12] MEDS: Acetaminophen 500 MG TAB PO SCH ×3 (06:54→21:29)
[2020-10-12] MEDS: Oxazepam 10 MG CAP PO SCH ×4 (06:54→21:29)
[2020-10-12] MEDS ORDERED: Famotidine 20 MG TAB PO SCH (09:00)
[2020-10-12] MEDS ORDERED: Oxazepam 10 MG CAP PO SCH (09:00)
[2020-10-12] MEDS: Magnesium Oxide 400 MG TAB PO SCH (09:33)
[2020-10-12] MEDS: Folic Acid 1 MG TAB PO SCH (09:33)
[2020-10-12] MEDS: Multivit, Therapeutic 1 TAB PO SCH (09:33)
[2020-10-12] MEDS: Thiamine 100 MG TAB PO SCH (09:34)
[2020-10-12] MEDS: Sotalol HCl 80 MG TAB PO SCH ×2 (09:34→20:42)
--- NOTE | 2020-10-12 09:38 | RAD ---
CHEST 1 VIEW: Date: 10/12/2020 INDICATION: Fall from standing. COMPARISON: Prior exam dated 09/10/2020. FINDINGS: There is worsening cardiomegaly and pulmonary vascular congestion. Patchy air space opacities remain within both lungs. Left costophrenic angle is excluded. No definite pneumothorax is evident. IMPRESSION: 1. Worsening cardiomegaly with pulmonary vascular congestion. 2. Persistent bilateral peripheral air space disease suspicious for persistent pneumonia. 3. No pneumothorax. POS: BH
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
[2020-10-12] MEDS ORDERED: Glycopyrrolate 0.2 MG/ML 5 ML SYRINGE ONE (09:42)
[2020-10-12] MEDS ORDERED: Lidocaine 1% PF 5 ML VIAL ONE (09:42)
[2020-10-12] MEDS ORDERED: PHENYLEPHRINE-NS 100 MCG/ML 10 ML SYRINGE ONE ×2 (09:42→17:06)
[2020-10-12] MEDS ORDERED: Rocuronium Bromide 10 MG/ML (10ML VIAL) ONE (09:42)
[2020-10-12] MEDS ORDERED: ePHEDrine 50 MG/ML VIAL ONE (09:42)
[2020-10-12] MEDS ORDERED: Ondansetron PF 4 MG/2 ML Vial ONE (09:42)
[2020-10-12] MEDS ORDERED: Succinylcholine 200 MG/10 ml SYRINGE FS ONE (09:42)
[2020-10-12] MEDS ORDERED: PROPOFOL 200 MG/20 ML VIAL ONE (09:42)
--- NOTE | 2020-10-12 09:44 | RAD ---
RIGHT ANKLE 2 VIEWS: Date: 10/12/2020 INDICATION: History of fall from standing. COMPARISON: None. FINDINGS/IMPRESSION: There is a comminuted fracture with subluxation of the right ankle with posterior and lateral displac ement of the talar dome in relationship to the tibial plafond. There is a trimalleolar fracture compo nentS involving the medial, posterior, and lateral malleolus. There is moderate displacement of the f racture fragments. There is soft tissue gas within the surrounding soft tissues indicative of an open injury. There is also a syndesmotic injury as there is a proximal fibular shaft fracture. POS: BH
[2020-10-12 09:57] LABS: Anion Gap 17 mmol/L (10-20); BUN (Urea Nitrogen) 17 mg/dL (8.9-20.6); Calc. Creatinine Clearance 0 mL/min (70-130); Calcium 8.1 mg/dL (7.8-10.44); Carbon Dioxide 25 mmol/L (22-29); Chloride 88 mmol/L (98-107); Glucose 95 mg/dL (70-105); Potassium 4.9 mmol/L (3.5-5.1); Sodium 125 mmol/L (136-145)
[2020-10-12] MEDS ORDERED: Bupivacaine HCl 0.5%/Epinephrine 1:200,000/PF 30 ml Vial ONE (10:18)
--- NOTE | 2020-10-12 11:42 | CON ---
DATE OF CONSULTATION: 10/12/2020 REQUESTING PHYSICIAN: Louie Rice DO CONSULTING PHYSICIAN: Tristen Washburn MD REASON FOR CONSULTATION: Open right ankle trimalleolar fracture. BRIEF CLINICAL HISTORY: Nikita is a 50-year-old white male, who sustained a ground level fall yesterday evening. He had an isolated injury of the right ankle, resulted in an open trimalleolar fracture of the ankle. Our service has been consulted for evaluation of this injury in definitive orthopedic management of this problem. The patient was admitted with elevated alcohol levels, hyponatremia. He has early-onset congestive heart failure, but no diabetes. He has a lifelong morbid obesity and chronic alcohol use. PAST MEDICAL HISTORY: Significant for COPD, heart failure, chronic alcohol abuse, atrial fibrillation, hyponatremia, morbid obesity, and obstructive sleep apnea. MEDICATIONS: Please see medication reconciliation. ALLERGIES: WARFARIN. DENIES ANY CONTACT ALLERGIES. SOCIAL HISTORY: He consumes ethanol on daily basis. He smokes one pack cigarettes per day. He has done so most of his life. He is . He uses a walker and a cane. I believe he is disabled. PHYSICAL EXAMINATION: This is a morbidly obese large white male, appearing his stated age. He is uncomfortable, but he is in no apparent distress. He is alert, appropriate, responsive with the examiner, but he does complain bitterly of pain as pain medications have been judiciously used due to the patient's history of hypotension with pain medicines and judicious fluids to keep him from going into decompensated heart failure from fluid overload. Visual inspection of the right lower extremity demonstrates him to have good capillary refill of the digits. He is in a posterior splint. No strike through is noted. He is neurovascularly intact with good digital excursion. IMAGING STUDIES: Two-view right ankle demonstrates a displaced Araiza C distal fibular fracture with a medial and posterior malleolar fracture pattern with little bit of shift laterally of the mortise, best appreciated on the anterior view. Quite a bit of soft tissue density is noted in and around the fracture. Subcutaneous air is also appreciated. IMPRESSION: 1. Open displaced right ankle trimalleolar fracture. 2. Obesity. 3. Congestive heart failure. 4. Chronic alcohol use. PLAN: 1. The risks, benefits, options, and alternatives rationale for proceeding with irrigation, debridement, open reduction and internal fixation of the right ankle has been explained in great detail to the patient. He is ready to proceed. All questions were answered. No guarantee of outcome has been stated or implied. 2. Please see orders. Job ID: [id number]
[2020-10-12] MEDS ORDERED: Fentanyl 100 MCG/2 ML VIAL ONE (11:50)
[2020-10-12] MEDS ORDERED: Phenylephrine 10 MG/ML VIAL ONE (12:38)
[2020-10-12] MEDS ORDERED: Milrinone 10 MG/10 ML VIAL ONE (12:46)
[2020-10-12] MEDS ORDERED: Milrinone Lactate/D5W 20 MG in Premix Bag 1 BAG IV SCH (13:00)
[2020-10-12] MEDS ORDERED: traMADol HCl 50 MG TAB PO PRN ×2 (13:15)
[2020-10-12] MEDS ORDERED: Zolpidem Tartrate 5 MG TAB PO PRN (13:15)
[2020-10-12] MEDS ORDERED: HYDROcodone/Acetaminophen 10/325 mg Tablet PO PRN ×2 (13:15)
[2020-10-12] MEDS ORDERED: Ondansetron PF 4 MG/2 ML Vial IVP PRN (13:15)
[2020-10-12] MEDS ORDERED: Ropivacaine 0.2% 550 ML 550 ML NERVE BLCK SCH ×2 (13:15→16:00)
--- NOTE | 2020-10-12 14:33 | RAD ---
TWO VIEWS RIGHT ANKLE: 10/12/20 PROVIDED CLINICAL HISTORY: Ankle fracture. FINDINGS: Comparison 10/12/20. Multiple spot fluoroscopic images of the right ankle were obtained during the course of external ronn ce placemen. IMPRESSION: As above. POS: CRIS
[2020-10-12] MEDS ORDERED: SUGAMMADEX SODIUM 200 MG/2 ML VIAL ONE (15:06)
[2020-10-12] MEDS ORDERED: Albumin 5% 500 ML ONE (15:30)
[2020-10-12] MEDS ORDERED: Sodium Chloride 0.9% 10 ML ONE (15:35)
[2020-10-12] MEDS ORDERED: Promethazine HCl 25 MG/ML VIAL SLOW IVP PRN (15:53)
[2020-10-12] MEDS ORDERED: Ondansetron HCl/PF 4 MG/2 ML Vial IVP PRN (15:53)
[2020-10-12] MEDS ORDERED: DOPamine 400 MG/D5W 250 ML 250 ML ONE (16:04)
[2020-10-12 16:29] LABS: Actual Bicarbonate (HCO3a) 25.4 mEq/L (22-28); Base Excess (BEa) -3.4 mEq/L (-2.0 to +3.0); Calcium, Ionized (arterial) 1.14 mmol/L (1.12-1.30); Carboxyhemoglobin (COHb) 2.2 gm% (0.0-3.0); Hemoglobin (Hb) 10.7 g/dL (14.0-18.0); O2 Tension (PaO2), arterial 124.3 mmHg (80.0-100.0); Potassium - ABG Lab 4.52 mmol/L (3.70-5.30)
[2020-10-12 16:34] LABS: CO2 Tension 66.2 mmHg (35.0-45.0); Puncture Site Arterial Line
[2020-10-12] MEDS ORDERED: Norepinephrine 4 MG/4 ML VIAL ONE (16:57)
[2020-10-12] MEDS ORDERED: Norepinephrine 8 MG/0.9% NS 250 ML IVPB SCH (17:00)
[2020-10-12] MEDS: traMADol HCl 50 MG TAB PO SCH ×3 (18:46→21:25)
[2020-10-12] MEDS: CEFAZOLIN 2 GM in Premix Bag 1 BAG IVPB SCH ×2 (18:48→20:41)
[2020-10-13 04:49] LABS: #Lymphocytes 1.6 thou/uL (1.20-3.40); #Monocytes 0.8 thou/uL (0.11-0.59); #Neutrophils 5.9 thou/uL (1.40-6.50); %Basophils 0.5 % (0.0-1.0); %Eosinophils 0.3 % (0.0-10.0); %Lymphocytes 19.2 % (21.0-51.0); Hemoglobin 9.1 g/dL (14.0-18.0); Mean Corpuscular HGB CONC 33.2 g/dL (32.0-36.0); Mean Corpuscular Hemoglobin 27.3 pg (27.0-31.0); Mean Platelet Volume 8.4 fL (7.4-10.4); Platelet Count 162 thou/uL (130-400); RBC Distribution Width 16.5 % (11.5-14.5); Red Blood Cell (RBC) Count 3.32 mill/uL (4.70-6.10); White Blood Cell (WBC) Count 8.4 thou/uL (4.8-10.8)
[2020-10-13] MEDS: CEFAZOLIN 2 GM in Premix Bag 1 BAG IVPB SCH ×3 (05:00→20:35)
[2020-10-13] MEDS: traMADol HCl 50 MG TAB PO SCH ×4 (05:04→22:16)
[2020-10-13] MEDS: Acetaminophen 500 MG TAB PO SCH ×4 (05:05→22:15)
[2020-10-13] MEDS: Oxazepam 10 MG CAP PO SCH ×4 (05:05→22:15)
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
[2020-10-13 05:12] LABS: Anion Gap 14 mmol/L (10-20); BUN (Urea Nitrogen) 15 mg/dL (8.9-20.6); Calc. Creatinine Clearance 170 mL/min (70-130); Carbon Dioxide 30 mmol/L (22-29); Chloride 92 mmol/L (98-107); Glucose 93 mg/dL (70-105); Magnesium 1.7 mg/dL (1.6-2.6); Phosphorus 4.4 mg/dL (2.3-4.7); Potassium 5.7 mmol/L (3.5-5.1); Sodium 130 mmol/L (136-145)
[2020-10-13] MEDS: Gentamicin Sulfate 120 MG in Premix Bag 1 BAG IVPB SCH ×3 (06:43→22:14)
[2020-10-13] MEDS ORDERED: Prevnar 13-Val Conj/PF 0.5 ML SYRINGE IM ONE (09:00)
[2020-10-13] MEDS ORDERED: FLU VACC QS2020-21(6MOS UP)/PF 60 MCG/0.5 ML SYRINGE IM ONE (09:00)
[2020-10-13] MEDS ORDERED: Hydrocortisone Sod Succ/PF 100 mg/2 ml Vial IVP SCH (09:45)
[2020-10-13] MEDS: Sotalol HCl 80 MG TAB PO SCH ×2 (09:58→20:36)
[2020-10-13] MEDS: Magnesium Oxide 400 MG TAB PO SCH (09:58)
[2020-10-13] MEDS: Folic Acid 1 MG TAB PO SCH (09:59)
[2020-10-13] MEDS: Multivit, Therapeutic 1 TAB PO SCH (09:59)
[2020-10-13] MEDS: Thiamine 100 MG TAB PO SCH (09:59)
[2020-10-13 10:50] LABS: Anion Gap 14 mmol/L (10-20); BUN (Urea Nitrogen) 14 mg/dL (8.9-20.6); Calc. Creatinine Clearance 189 mL/min (70-130); Carbon Dioxide 29 mmol/L (22-29); Chloride 92 mmol/L (98-107); Glucose 88 mg/dL (70-105); Potassium 5.1 mmol/L (3.5-5.1); Sodium 130 mmol/L (136-145)
--- NOTE | 2020-10-13 12:09 | PRG ---
DATE OF SERVICE: 10/13/2020 SUBJECTIVE: Mr. Morgan is a 50-year-old, whom I have seen in the hospital in the past, but never as an outpatient. He probably has severe sleep apnea. On top of that, he has developed pulmonary hypertension. He is currently in for treatment of ankle fracture on the right. He has been hypotensive postoperatively and is on Levophed drip. OBJECTIVE: GENERAL: Right now, he is awake, alert, and in no distress. VITAL SIGNS: On exam, his temperature is 99, pulse 86, blood pressure 106/50, O2 saturation 98%. HEENT: Unremarkable. NECK: No JVD. LUNGS: Clear anteriorly. CARDIAC: S1 and S2, regular. EXTREMITIES: Edematous. LABORATORY DATA: Sodium 130, potassium 5.1, BUN 14, creatinine 1.2. White blood cell count 8.4, hematocrit 27, and platelet count 162. ASSESSMENT: 1. Hypotension, which is improving. 2. Pulmonary hypertension. 3. Underlying obstructive sleep apnea. 4. Ankle fracture. PLAN: Discussed with Dr. Rice. Agree with weaning off the Levophed and continue his cardiac medications. If further help is needed with his hemodynamic issue, we would suggest consulting Dr. Lorenzo, his applications intern. We will be available as needed for problems, please call. Job ID: [id number]
--- NOTE | 2020-10-13 13:04 | PRG ---
DATE OF SERVICE: 10/13/2020 SUBJECTIVE: Mr. Morgan is a 50-year-old morbidly obese man, BMI of 59. The patient is postoperative day #1, status post external fixation to an open right ankle trimalleolar fracture. Postoperatively, the patient is on vasopressor support, norepinephrine currently a 5 mcg/minute. He is on BiPAP overnight. Urinary output is adequate for this patient's age and weight. OBJECTIVE: VITAL SIGNS: This morning include blood pressure 120/51, pulse rate 84, respiratory rate 15, maximum temperature in last 24 hours is 99 degrees Fahrenheit, oxygen saturation currently is 99% on FiO2 of 40% on BiPAP. HEENT: Pupils are equal, round, and reactive to light bilaterally. NECK: He no jugular venous distention noted. HEART: Reveals regular rate and rhythm. LUNGS: Reveals bibasilar rhonchi. Breathing regular and nonlabored. ABDOMEN: Soft and obese, but nontender to palpation. NEUROLOGIC: Reveals no focal deficits present. LABORATORY FINDINGS: Laboratory findings today includes a CBC with 8400 white blood cells hemoglobin and hematocrit 9.1 and 27.2 respectively. The platelet count is 162,000. Metabolic profile; sodium 130, potassium 5.1, chloride is 92, bicarb is 29, BUN 14, creatinine is 1.19, and glucose is 88. Serum cortisol level is 11.20. IMPRESSION: 1. Postoperative day #1, status post external fixation to open right trimalleolar ankle fracture. 2. Acute pulmonary insufficiency, resolving. 3. Acute adrenal insufficiency. PLAN: 1. We will initiate wean from vasopressor support. 2. Initiate physical and occupational therapy. 3. Continue with pulmonary toilet and bronchodilator therapy and we will use intermittent noninvasive mechanical ventilator support. Job ID: [id number]
--- NOTE | 2020-10-13 16:57 | OP ---
DATE OF PROCEDURE: 10/12/2020 PREOPERATIVE DIAGNOSIS: Grade 3 open right ankle fracture-dislocation. POSTOPERATIVE DIAGNOSIS: Grade 3 open right ankle fracture-dislocation. PROCEDURES PERFORMED: 1. Open reduction of right ankle fracture-dislocation with application of delta frame external fixator. 2. K-wire stabilization of right tibiotalar joint. 3. Irrigation and debridement of right open ankle wound. 4. Complex wound closure, right ankle (15 cm). ANESTHESIA: General. TURBINE ENGINE ASSEMBLER: Darius Carlin PA-C TOURNIQUET TIME: Zero. IMPLANTS: Synthes large external fixator with the addition of 2.0 mm K-wires. COMPLICATIONS: None. DRAINS: None. SPECIMENS: None. OUTCOME: Satisfactory. INDICATION FOR PROCEDURE: The patient is a 50-year-old gentleman, who is morbidly obese and sustained ground level fall while walking with an open fracture-dislocation of the right ankle. Upon arrival at [facility], he was given IV antibiotics and the open fracture-dislocation was reduced and splinted. The patient is now being taken to the operating room for stabilization of this injury. Informed consent has been obtained. I believe all questions have been answered. DESCRIPTION OF PROCEDURE: The patient was brought to the operating room and a time-out performed followed by induction of general anesthesia. Next, the splint was removed. He was found to have a laceration that started posterior to the medial malleolus, extended around the anterior distal tibia and ankle stopping just prior to the fibula at the anterolateral aspect of the ankle. This revealed the underlying articular surface of the tibia as well as the talus with a fracture of the medial malleolus. The patient did have a foot which was warm with capillary refill of 3 seconds. It was difficult to ascertain neurologic status preoperatively as the patient was in a great deal of pain and it was difficult to exam, although he did report gross sensation intact over both the dorsal and plantar surface of the foot. Next, a sterile prep and drape was performed of the right lower extremity. At this point, 5 L of normal saline was irrigated through this large traumatic open wound. [place] through this irrigation, the ankle was reduced and provisionally held in place with two 2.0 mm K-wires that were passed from the distal medial aspect of the tibia obliquely across the ankle joint capturing the talus to hold it in a near-anatomic alignment. Following this, a large external fixator delta frame was applied with 2 half pins placed in the tibia and a [id number] pin through the calcaneus. At the completion of this delta frame external fixator, AP, lateral C-arm images were obtained that showed near-anatomic alignment of the tibiotalar articulation, but still with some displacement of the lateral malleolar fracture. The medial malleolus was relatively well reduced with this maneuver. The remaining 5 L was irrigated through the wound. At this point, given the severity of the open wound injury, it was opted not to proceed with any formal open reduction and internal fixation beyond K-wire stabilization due to risk for infection. As such, the traumatic wound after a debridement procedure that consisted of sharp debridement with a scalpel of the skin and subcutaneous tissue down to periosteum was performed. Following debridement of all nonvascular, devitalized tissue, wound closure was then performed. This was done with a layer of 3-0 Prolene suture reapproximating the skin and getting coverage of the ankle joint proper. At the completion of this, Xeroform gauze and bulky short-leg splint were then applied to the ankle and then the patient was transferred to the recovery room in stable condition. There were no complications. The patient tolerated the procedure well. Job ID: [id number]
[2020-10-13] MEDS: Hydrocortisone Sod Succ/PF 100 mg/2 ml Vial IVP SCH (17:20)
[2020-10-14] MEDS: Hydrocortisone Sod Succ/PF 100 mg/2 ml Vial IVP SCH ×3 (01:41→17:43)
[2020-10-14] MEDS: CEFAZOLIN 2 GM in Premix Bag 1 BAG IVPB SCH ×3 (03:30→21:02)
[2020-10-14] MEDS: Acetaminophen 500 MG TAB PO SCH ×4 (03:31→22:11)
[2020-10-14] MEDS: Oxazepam 10 MG CAP PO SCH ×4 (03:31→22:11)
[2020-10-14] MEDS: traMADol HCl 50 MG TAB PO SCH ×4 (03:31→22:11)
[2020-10-14 04:20] LABS: #Lymphocytes 1.1 thou/uL (1.20-3.40); #Monocytes 0.5 thou/uL (0.11-0.59); #Neutrophils 4.2 thou/uL (1.40-6.50); %Basophils 0.4 % (0.0-1.0); %Eosinophils 0.2 % (0.0-10.0); %Lymphocytes 18.8 % (21.0-51.0); %Monocytes 8.3 % (0.0-10.0); %Neutrophils 72.2 % (42.0-75.0); Hemoglobin 7.9 g/dL (14.0-18.0); Mean Corpuscular HGB CONC 32.3 g/dL (32.0-36.0); Mean Corpuscular Hemoglobin 27.1 pg (27.0-31.0); Mean Corpuscular Volume 83.9 fL (78.0-98.0); Mean Platelet Volume 8.6 fL (7.4-10.4); Platelet Count 133 thou/uL (130-400); RBC Distribution Width 16.6 % (11.5-14.5); Red Blood Cell (RBC) Count 2.91 mill/uL (4.70-6.10); White Blood Cell (WBC) Count 5.8 thou/uL (4.8-10.8)
[2020-10-14 04:55] LABS: Anion Gap 11 mmol/L (10-20); BUN (Urea Nitrogen) 13 mg/dL (8.9-20.6); Calc. Creatinine Clearance 212 mL/min (70-130); Carbon Dioxide 30 mmol/L (22-29); Chloride 93 mmol/L (98-107); Glucose 114 mg/dL (70-105); Magnesium 1.6 mg/dL (1.6-2.6); Phosphorus 2.4 mg/dL (2.3-4.7); Potassium 4.7 mmol/L (3.5-5.1); Sodium 129 mmol/L (136-145)
[2020-10-14] MEDS: Gentamicin Sulfate 120 MG in Premix Bag 1 BAG IVPB SCH ×2 (05:04→17:42)
[2020-10-14] MEDS ORDERED: Magnesium 2 GM/50 ML 2 GM in Premix Bag 1 BAG IVPB SCH (09:45)
[2020-10-14] MEDS: Sotalol HCl 80 MG TAB PO SCH ×2 (09:45→21:03)
[2020-10-14] MEDS: Thiamine 100 MG TAB PO SCH (09:45)
[2020-10-14] MEDS: Folic Acid 1 MG TAB PO SCH (09:45)
[2020-10-14] MEDS: Multivit, Therapeutic 1 TAB PO SCH (09:45)
[2020-10-14] MEDS ORDERED: Sodium Phosphate 15 MMOL in Sodium Chloride 0.9% 250 ML 250 ML IVPB SCH (09:45)
[2020-10-14] MEDS: Magnesium Oxide 400 MG TAB PO SCH (09:45)
--- NOTE | 2020-10-14 15:16 | PRG ---
DATE OF SERVICE: 10/14/2020 SUBJECTIVE: The patient was seen this morning during rounds with Dr. Rice. The patient was awake and alert. He reported he is tolerating his diet. He has been working with physical therapy, doing exercises in bed. Lower extremity is warm and motor function is intact. The patient reports pain is well controlled. OBJECTIVE: VITAL SIGNS: Temperature 98.8, pulse 100, respirations 14, oxygen saturation 100% on nasal cannula, and blood pressure 125/55. GENERAL: Well-appearing middle-aged male, sitting up in bed with no signs of acute distress. PULMONARY: Equal chest rise and fall. Clear breath sounds bilaterally. No signs of acute respiratory distress. CARDIAC: Regular rate and rhythm. GASTROINTESTINAL: Abdomen is soft, nontender, and nondistended. EXTREMITIES: 2+ pulses in all extremities. Gross motor and sensation intact. Right lower extremity with postop dressing and ex-fix in place. No signs of oozing from his dressing or his pin site. NEUROLOGIC: GCS is 15. LABORATORY FINDINGS: White count 5.8, hemoglobin 7.9, hematocrit 24.4, and platelets 133. Sodium 124, potassium 4.7, chloride 95, bicarb 30, BUN 13, creatinine 1.06, glucose 114, phosphorus 2.4, and magnesium 1.6. BNP 472. DIAGNOSTIC FINDINGS: There are no new diagnostic findings to report. ASSESSMENT: 1. Status post ground level fall. 2. Right open tibia-fibula fracture, status post repair with ex-fix in place. 3. Acute kidney injury, resolved. 4. Acute on chronic hyponatremia. 5. Acute adrenal insufficiency. 6. History of chronic obstructive pulmonary disease. 7. Congestive heart failure. 8. Pulmonary hypertension. 9. Obesity. 10. Hyponatremia. 11. Atrial fibrillation. 12. Ethanol abuse. 13. Obstructive sleep apnea. PLAN: Continue current heart-healthy diet. Discontinue IV fluid. Restrict the patient free water to 1 L in 24 hours. The patient can have gatorade or juice with his hyponatremia. Discontinue [place]. Continue current pain regimen. Restart home Eliquis today. The patient was originally supposed to go back to the OR on October [address] Washburn. However, nursing reports that he is not going to the OR tomorrow. Replace sodium, phosphorus, and magnesium today. This patient was seen and evaluated by myself and Dr. Rice this morning during rounds. Job ID: [id number] MTDNick
[2020-10-14] MEDS: Apixaban 5 MG TAB PO SCH (21:04)
[2020-10-15] MEDS: Hydrocortisone Sod Succ/PF 100 mg/2 ml Vial IVP SCH ×3 (01:13→16:18)
[2020-10-15] MEDS ORDERED: Gentamicin Sulfate 120 MG in Premix Bag 1 BAG IVPB SCH (02:00)
[2020-10-15] MEDS: Acetaminophen 500 MG TAB PO SCH ×4 (03:41→22:08)
[2020-10-15] MEDS: Oxazepam 10 MG CAP PO SCH ×4 (03:41→22:08)
[2020-10-15] MEDS: CEFAZOLIN 2 GM in Premix Bag 1 BAG IVPB SCH (03:42)
[2020-10-15] MEDS: traMADol HCl 50 MG TAB PO SCH ×4 (04:15→22:08)
[2020-10-15 05:50] LABS: #Monocytes 0.4 thou/uL (0.11-0.59); %Basophils 0.2 % (0.0-1.0); %Eosinophils 0.6 % (0.0-10.0); %Lymphocytes 18.9 % (21.0-51.0); %Monocytes 7.1 % (0.0-10.0); %Neutrophils 73.2 % (42.0-75.0); Hemoglobin 7.9 g/dL (14.0-18.0); Mean Corpuscular Hemoglobin 27.2 pg (27.0-31.0); Mean Platelet Volume 8.5 fL (7.4-10.4); Platelet Count 137 thou/uL (130-400); RBC Distribution Width 16.9 % (11.5-14.5); Red Blood Cell (RBC) Count 2.89 mill/uL (4.70-6.10); White Blood Cell (WBC) Count 5.4 thou/uL (4.8-10.8)
[2020-10-15 06:19] LABS: Anion Gap 12 mmol/L (10-20); BUN (Urea Nitrogen) 12 mg/dL (8.9-20.6); Calc. Creatinine Clearance 212 mL/min (70-130); Calcium 8.5 mg/dL (7.8-10.44); Carbon Dioxide 30 mmol/L (22-29); Chloride 95 mmol/L (98-107); Glucose 111 mg/dL (70-105); Phosphorus 3.4 mg/dL (2.3-4.7); Sodium 132 mmol/L (136-145)
[2020-10-15] MEDS: Multivit, Therapeutic 1 TAB PO SCH (10:00)
[2020-10-15] MEDS: Magnesium Oxide 400 MG TAB PO SCH (10:01)
[2020-10-15] MEDS: Folic Acid 1 MG TAB PO SCH (10:01)
[2020-10-15] MEDS: Apixaban 5 MG TAB PO SCH ×2 (10:01→22:08)
[2020-10-15] MEDS: Sotalol HCl 80 MG TAB PO SCH ×2 (10:02→22:08)
[2020-10-15] MEDS: Thiamine 100 MG TAB PO SCH (10:04)
[2020-10-15] MEDS: Cephalexin 250 MG CAP PO SCH ×2 (11:42→17:16)
[2020-10-15] MEDS ORDERED: Calcium Carbonate 500 MG ChewTAB PO PRN (13:44)
[2020-10-15] MEDS: PHOS-NAK 1 PKT PACK PO SCH (22:09)
--- NOTE | 2020-10-15 22:56 | PRG ---
DATE OF SERVICE: SUBJECTIVE: The patient is currently on the surgical floor. He is status post external fixation of an open right ankle fracture dislocation. He is postop day 3 from that procedure. He is doing well. Unfortunately, he is nonweightbearing on his injured extremity and due to his body habitus, has extreme difficulty bearing weight on his uninjured side. This is delaying his progress with Physical Therapy. The patient is tolerating a diet and his pain is controlled. Per Orthopedics, the patient will likely have prolonged external fixation. Due to his comorbidities, he is not a great surgical candidate for repeat surgeries. PHYSICAL EXAMINATION: VITAL SIGNS: Temperature is 97.9, heart rate 79, blood pressure 135/72, respirations 18, and oxygen saturation is 97% on 3 L via nasal cannula. GENERAL: The patient is resting comfortably in bed. He is awake, alert, conversant, and appropriate. [place] Coma Scale is 15. HEENT: Unremarkable. LUNGS: Clear to auscultation bilaterally. HEART: Regular rate and rhythm. ABDOMEN: Soft, nontender with active bowel sounds. EXTREMITIES: Neurovascularly intact x4. His right lower extremity has external fixator in place. The dressing is clean, dry, and intact. Pin sites are clean. LABORATORY FINDINGS: White blood cell count 5.4, hemoglobin 7.9, hematocrit 24.6, platelets 137. Sodium 132, potassium 5.0, chloride 95, CO2 of 30, BUN 12, creatinine 1.04, glucose 111, magnesium 2.0, phosphorus 3.4. There are no radiographs reviewed this morning. ASSESSMENT: 1. Status post ground level fall. 2. Status post irrigation and debridement and external fixator placement of grade 3 right open tib-fib fracture dislocation. 3. Acute kidney injury, resolved. 4. Acute on chronic hyponatremia. 5. Acute adrenal insufficiency. 6. History of chronic obstructive pulmonary disease, congestive heart failure, pulmonary hypertension, morbid obesity, atrial fibrillation, alcohol abuse, and obstructive sleep apnea. PLAN: Plan will be to continue encouraging physical and occupational therapy. We will continue all supportive care to include care of his comorbidities. We will also begin discussing placement. Job ID: [id number]
[2020-10-16] MEDS: Cephalexin 250 MG CAP PO SCH ×4 (00:20→17:38)
[2020-10-16] MEDS: Hydrocortisone Sod Succ/PF 100 mg/2 ml Vial IVP SCH ×3 (00:20→17:42)
[2020-10-16] MEDS: Acetaminophen 500 MG TAB PO SCH ×4 (05:15→21:07)
[2020-10-16] MEDS: traMADol HCl 50 MG TAB PO SCH ×4 (05:16→21:08)
[2020-10-16] MEDS: Oxazepam 10 MG CAP PO SCH ×4 (05:16→21:09)
[2020-10-16 05:30] LABS: #Lymphocytes 1.1 thou/uL (1.20-3.40); #Monocytes 0.3 thou/uL (0.11-0.59); #Neutrophils 4.2 thou/uL (1.40-6.50); %Basophils 0.1 % (0.0-1.0); %Eosinophils 0.3 % (0.0-10.0); %Lymphocytes 18.6 % (21.0-51.0); Hemoglobin 8.1 g/dL (14.0-18.0); Mean Corpuscular Hemoglobin 26.6 pg (27.0-31.0); Mean Corpuscular Volume 85.9 fL (78.0-98.0); Mean Platelet Volume 7.8 fL (7.4-10.4); Platelet Count 143 thou/uL (130-400); RBC Distribution Width 16.7 % (11.5-14.5); Red Blood Cell (RBC) Count 3.03 mill/uL (4.70-6.10); White Blood Cell (WBC) Count 5.7 thou/uL (4.8-10.8)
[2020-10-16 05:50] LABS: Magnesium 1.7 mg/dL (1.6-2.6); Phosphorus 3.2 mg/dL (2.3-4.7)
[2020-10-16] MEDS: PHOS-NAK 1 PKT PACK PO SCH ×2 (09:11→21:06)
[2020-10-16] MEDS: Folic Acid 1 MG TAB PO SCH (09:12)
[2020-10-16] MEDS: Aspirin 81 mg Enteric Coated Tablet PO SCH (09:12)
[2020-10-16] MEDS: Potassium Chloride 10 MEQ TAB PO SCH (09:12)
[2020-10-16] MEDS: Magnesium Oxide 400 MG TAB PO SCH (09:12)
[2020-10-16] MEDS: Sotalol HCl 80 MG TAB PO SCH ×2 (09:12→21:08)
[2020-10-16] MEDS: Thiamine 100 MG TAB PO SCH (09:12)
[2020-10-16] MEDS: Multivit, Therapeutic 1 TAB PO SCH (09:13)
[2020-10-16] MEDS: Apixaban 5 MG TAB PO SCH ×2 (09:13→21:08)
[2020-10-16] MEDS: Furosemide 40 MG TAB PO SCH (09:13)
[2020-10-16] MEDS: Spironolactone 25 MG TAB PO SCH (10:19)
[2020-10-16 10:26] LABS: Anion Gap 15 mmol/L (10-20); BUN (Urea Nitrogen) 12 mg/dL (8.9-20.6); Calc. Creatinine Clearance 266 mL/min (70-130); Calcium 8.5 mg/dL (7.8-10.44); Carbon Dioxide 27 mmol/L (22-29); Chloride 97 mmol/L (98-107); Glucose 109 mg/dL (70-105); Potassium 4.7 mmol/L (3.5-5.1); Sodium 134 mmol/L (136-145)
[2020-10-16] MEDS: traMADol HCl 50 MG TAB PO PRN (11:44)
[2020-10-17] MEDS: Hydrocortisone Sod Succ/PF 100 mg/2 ml Vial IVP SCH ×4 (00:08→23:55)
[2020-10-17] MEDS: Cephalexin 250 MG CAP PO SCH ×5 (00:08→23:54)
[2020-10-17] MEDS: traMADol HCl 50 MG TAB PO PRN ×4 (00:09→23:54)
[2020-10-17] MEDS: traMADol HCl 50 MG TAB PO SCH ×4 (05:21→21:16)
[2020-10-17] MEDS: Acetaminophen 500 MG TAB PO SCH ×4 (05:21→21:16)
[2020-10-17] MEDS: Oxazepam 10 MG CAP PO SCH ×4 (05:22→21:16)
[2020-10-17 06:40] LABS: #Lymphocytes 1.1 thou/uL (1.20-3.40); #Monocytes 0.4 thou/uL (0.11-0.59); #Neutrophils 3.2 thou/uL (1.40-6.50); %Basophils 0.5 % (0.0-1.0); %Eosinophils 0.3 % (0.0-10.0); %Monocytes 7.3 % (0.0-10.0); %Neutrophils 67.9 % (42.0-75.0); Hemoglobin 8.4 g/dL (14.0-18.0); Mean Corpuscular HGB CONC 30.4 g/dL (32.0-36.0); Mean Corpuscular Volume 85.6 fL (78.0-98.0); Mean Platelet Volume 7.9 fL (7.4-10.4); Platelet Count 171 thou/uL (130-400); RBC Distribution Width 17.3 % (11.5-14.5); Red Blood Cell (RBC) Count 3.23 mill/uL (4.70-6.10); White Blood Cell (WBC) Count 4.7 thou/uL (4.8-10.8)
[2020-10-17 06:45] LABS: Anion Gap 12 mmol/L (10-20); BUN (Urea Nitrogen) 9 mg/dL (8.9-20.6); Calc. Creatinine Clearance 287 mL/min (70-130); Calcium 8.8 mg/dL (7.8-10.44); Carbon Dioxide 30 mmol/L (22-29); Chloride 97 mmol/L (98-107); Glucose 96 mg/dL (70-105); Magnesium 1.5 mg/dL (1.6-2.6); Phosphorus 3.7 mg/dL (2.3-4.7); Potassium 4.6 mmol/L (3.5-5.1); Sodium 134 mmol/L (136-145)
[2020-10-17] MEDS: Sotalol HCl 80 MG TAB PO SCH ×2 (08:34→21:16)
[2020-10-17] MEDS: Apixaban 5 MG TAB PO SCH ×2 (08:34→21:16)
[2020-10-17] MEDS: Potassium Chloride 10 MEQ TAB PO SCH (08:34)
[2020-10-17] MEDS: Folic Acid 1 MG TAB PO SCH (08:34)
[2020-10-17] MEDS: Spironolactone 25 MG TAB PO SCH (08:34)
[2020-10-17] MEDS: PHOS-NAK 1 PKT PACK PO SCH ×2 (08:35→21:17)
[2020-10-17] MEDS: Thiamine 100 MG TAB PO SCH (08:35)
[2020-10-17] MEDS: Multivit, Therapeutic 1 TAB PO SCH (08:35)
[2020-10-17] MEDS: Aspirin 81 mg Enteric Coated Tablet PO SCH (08:35)
[2020-10-17] MEDS: Magnesium Oxide 400 MG TAB PO SCH (08:35)
[2020-10-17] MEDS: Furosemide 40 MG TAB PO SCH (08:35)
[2020-10-17] MEDS ORDERED: Magnesium Sulfate 4 GM in Sodium Chloride 0.9% 250 ML 250 ML IVPB SCH (09:00)
--- NOTE | 2020-10-17 22:25 | PRG ---
DATE OF SERVICE: This is Den [place] PA-C dictating a report for Louie Rice DO. HISTORY: Patient remains on the surgical floor. He is status post external fixation of a right open tibia-fibular fracture. The patient is currently awaiting placement which Case Management has informed us that due to his Medicaid, it may be difficult, but they will explore what options are available. The patient had no issues overnight. He reports his pain is controlled, he is tolerating a diet, and his bowel function has returned. PHYSICAL EXAMINATION: VITAL SIGNS: Temperature is 98.1, heart rate 88, blood pressure 147/73, respirations 20, oxygen saturation is 98% on room air. GENERAL: The patient is resting comfortably in bed. He is awake, alert, conversant, appropriate. [place] Coma Scale is 15. HEENT: Unremarkable. LUNGS: Clear to auscultation bilaterally. HEART: Regular rate and rhythm. ABDOMEN: Soft, nontender with active bowel sounds. EXTREMITIES: Neurovascularly intact x4. Right lower extremity; external fixation device is clean, dry, and intact. His pin sites are clean. LABORATORY DATA: White blood cell count 4.7, hemoglobin 8.4, hematocrit 27.6, platelets 171. Sodium 134, potassium 4.6, chloride 97, CO2 30, BUN 9, creatinine 0.77, glucose 96, magnesium 1.5, phosphorus 3.7. There are no radiographs to review this morning. ASSESSMENT: 1. Status post ground level fall. 2. Status post irrigation and debridement and external fixator placement of grade 3 right open tibia-fibula fracture dislocation. 3. Acute kidney injury, resolved. 4. Acute on chronic hyponatremia, stable. 5. Acute adrenal insufficiency, stable. 6. History of chronic obstructive pulmonary disease, congestive heart failure, pulmonary hypertension, morbid obesity, atrial fibrillation, alcohol abuse, and obstructive sleep apnea. PLAN: Plan will be to continue encouraging physical and occupational therapy. Encourage out of bed. Continue all supportive care to include CPAP at night and await placement options. Patient was evaluated this morning with Dr. Rice. Job ID: [id number]
[2020-10-17] MEDS ORDERED: Melatonin 3 MG TAB PO PRN (23:45)
[2020-10-18] MEDS: Acetaminophen 500 MG TAB PO SCH ×4 (05:12→21:08)
[2020-10-18] MEDS: Oxazepam 10 MG CAP PO SCH ×4 (05:13→21:08)
[2020-10-18] MEDS: traMADol HCl 50 MG TAB PO SCH ×4 (05:13→21:07)
[2020-10-18] MEDS: Cephalexin 250 MG CAP PO SCH ×4 (05:13→23:14)
[2020-10-18] MEDS: Potassium Chloride 10 MEQ TAB PO SCH (08:52)
[2020-10-18] MEDS: Magnesium Oxide 400 MG TAB PO SCH (08:52)
[2020-10-18] MEDS: Multivit, Therapeutic 1 TAB PO SCH (08:52)
[2020-10-18] MEDS: PHOS-NAK 1 PKT PACK PO SCH ×2 (08:52→21:09)
[2020-10-18] MEDS: Apixaban 5 MG TAB PO SCH ×2 (08:52→21:09)
[2020-10-18] MEDS: Sotalol HCl 80 MG TAB PO SCH ×2 (08:52→21:08)
[2020-10-18] MEDS: Furosemide 40 MG TAB PO SCH (08:52)
[2020-10-18] MEDS: Aspirin 81 mg Enteric Coated Tablet PO SCH (08:53)
[2020-10-18] MEDS: Spironolactone 25 MG TAB PO SCH (08:54)
[2020-10-18] MEDS: Thiamine 100 MG TAB PO SCH (08:54)
[2020-10-18] MEDS: Folic Acid 1 MG TAB PO SCH (08:54)
[2020-10-18] MEDS: Hydrocortisone Sod Succ/PF 100 mg/2 ml Vial IVP SCH (08:54)
[2020-10-18] MEDS: traMADol HCl 50 MG TAB PO PRN ×2 (12:42→23:14)
--- NOTE | 2020-10-18 18:21 | PRG ---
DATE OF SERVICE: 10/18/2020 SUBJECTIVE: The patient was seen during morning rounds on the surgical floor. The patient is awake, alert, no distress. The patient is postop external fixation of his right open tib-fib fracture. The patient is only able to sit on the side of the bed with physical therapy. The patient's pain is currently controlled at this time. The patient is tolerating a diet and voices no complaints or concerns. Case Management has informed us that his insurance does not provide services for rehab or detention facility. The patient is nonweightbearing to his right lower extremity, but is having difficulties due to large body habitus. OBJECTIVE: VITAL SIGNS: Temperature 98.3, pulse 73, respirations 20, SpO2 of 97% on room air, and blood pressure 138/74. GENERAL: Middle-aged obese male, lying in hospital bed, in no distress. HEENT: Unremarkable. RESPIRATORY: Good inspiratory and expiratory effort, respirations are even and nonlabored. CARDIAC: Regular rate and regular rhythm. EXTREMITIES: Neurovascularly intact x4. Right lower extremity, external fixation device is clean, dry, and intact. LABORATORY DATA: There are no new labs to evaluate today. DIAGNOSTIC DATA: There are no new diagnostics to evaluate. ASSESSMENT: 1. Status post ground level fall. 2. Status post irrigation and debridement and external fixator placement of grade 3 right open tibia-fibula fracture dislocation. 3. Acute kidney injury, resolved. 4. Acute on chronic hyponatremia, stable. 5. Acute adrenal insufficiency, stable. 6. History of chronic obstructive pulmonary disease. 7. Congestive heart failure. 8. Pulmonary hypertension. 9. Morbid obesity. 10. Atrial fibrillation. 11. Alcohol abuse. 12. Obstructive sleep apnea. PLAN: Continue supportive care and pain regimen. Increase physical and occupational therapy. Encourage the patient to be out of bed as much as possible. Continue CPAP at night. Plan is to obtain a [facility] for continued physical and occupational therapy. Continue gastric prophylaxis and VTE prophylaxis. Job ID: [id number] [facility]
[2020-10-18] MEDS: Senokot S 8.6-50 MG TAB PO SCH (21:09)
--- NOTE | 2020-10-19 03:57 | PRG ---
DATE OF SERVICE: 10/18/2020 SUBJECTIVE: Patient was seen this evening during rounds. He was lying in bed, resting comfortably and asleep with BiPAP in place. Nursing reported no acute events. OBJECTIVE: VITAL SIGNS: Temperature 97.9, pulse 97, respirations 18, oxygen saturation 93% on BiPAP, blood pressure 145/71. GENERAL: Well-appearing young male, lying in bed, resting comfortably and asleep with no signs of acute distress. ASSESSMENT: 1. Status post ground level fall. 2. Open right tib-fib fracture, status post repair. 3. Acute kidney injury, resolved. 4. Acute adrenal insufficiency, resolved. 5. History of chronic obstructive pulmonary disease, congestive heart failure, pulmonary hypertension, obesity, hyponatremia, atrial fibrillation, aflutter, and alcohol abuse. PLAN: Continue current diet and pain regimen. Continue physical and occupational therapy. Continue supportive care. We are pending [facility] bed. He is ready for discharge at this time. Job ID: [id number]
[2020-10-19] MEDS: Acetaminophen 500 MG TAB PO SCH ×4 (05:02→20:06)
[2020-10-19] MEDS: Oxazepam 10 MG CAP PO SCH ×4 (05:02→20:08)
[2020-10-19] MEDS: traMADol HCl 50 MG TAB PO SCH ×4 (05:03→20:07)
[2020-10-19] MEDS: Cephalexin 250 MG CAP PO SCH ×4 (05:03→23:02)
[2020-10-19 06:54] LABS: Hemoglobin 8.5 g/dL (14.0-18.0); Mean Corpuscular HGB CONC 31.2 g/dL (32.0-36.0); Mean Corpuscular Hemoglobin 26.8 pg (27.0-31.0); Mean Corpuscular Volume 86.1 fL (78.0-98.0); Mean Platelet Volume 7.6 fL (7.4-10.4); Platelet Count 193 thou/uL (130-400); RBC Distribution Width 17.7 % (11.5-14.5); Red Blood Cell (RBC) Count 3.17 mill/uL (4.70-6.10); White Blood Cell (WBC) Count 6.8 thou/uL (4.8-10.8)
[2020-10-19 07:10] LABS: Anion Gap 12 mmol/L (10-20); BUN (Urea Nitrogen) 10 mg/dL (8.9-20.6); Calc. Creatinine Clearance 251 mL/min (70-130); Calcium 8.7 mg/dL (7.8-10.44); Carbon Dioxide 31 mmol/L (22-29); Chloride 97 mmol/L (98-107); Glucose 95 mg/dL (70-105); Magnesium 1.6 mg/dL (1.6-2.6); Phosphorus 4.3 mg/dL (2.3-4.7); Potassium 4.5 mmol/L (3.5-5.1); Sodium 135 mmol/L (136-145)
[2020-10-19 07:45] LABS: Band 5 % (5-11); Eosinophils 1 % (0-10); Lymphocytes 29 % (21-51); MDiff Complete? YES; Monocytes 10 % (0-10); Neutrophil 55 % (42-75); RBC Morphology Normal
[2020-10-19] MEDS: Aspirin 81 mg Enteric Coated Tablet PO SCH (09:20)
[2020-10-19] MEDS: Sotalol HCl 80 MG TAB PO SCH ×2 (09:20→20:06)
[2020-10-19] MEDS: PHOS-NAK 1 PKT PACK PO SCH ×2 (09:20→20:07)
[2020-10-19] MEDS: Folic Acid 1 MG TAB PO SCH (09:20)
[2020-10-19] MEDS: Furosemide 40 MG TAB PO SCH (09:20)
[2020-10-19] MEDS: Magnesium Oxide 400 MG TAB PO SCH (09:20)
[2020-10-19] MEDS: Potassium Chloride 10 MEQ TAB PO SCH (09:20)
[2020-10-19] MEDS: Polyethylene Glycol 3350 17 GM Packet PO SCH (09:21)
[2020-10-19] MEDS: Senokot S 8.6-50 MG TAB PO SCH ×2 (09:21→20:07)
[2020-10-19] MEDS: Multivit, Therapeutic 1 TAB PO SCH (09:21)
[2020-10-19] MEDS: Apixaban 5 MG TAB PO SCH ×2 (09:21→20:06)
[2020-10-19] MEDS: Thiamine 100 MG TAB PO SCH (09:21)
[2020-10-19] MEDS: Spironolactone 25 MG TAB PO SCH (09:22)
--- NOTE | 2020-10-19 19:04 | PRG ---
DATE OF SERVICE: 10/19/2020 SUBJECTIVE: The patient was seen during morning rounds on the surgical floor. He is awake and alert, in no distress with his BiPAP currently in place. The patient is postoperative external fixation of his right open tib-fib fracture. The patient reports that he worked with Physical Therapy earlier today and was able to sit on the side of the bed. The patient did report some moderate pain with physical therapy, but is controlled at this time. The patient reports that he did not sleep very well last night. The patient continues to have a good appetite. OBJECTIVE: VITAL SIGNS: Temperature 98.2, pulse 77, respirations 20, SpO2 of 96% on room air, and blood pressure 121/57. GENERAL: A middle-aged male, morbidly obese, lying in hospital bed, in no distress. HEENT: Unremarkable. RESPIRATORY: Good inspiratory and expiratory effort. Respirations are even and nonlabored. CARDIAC: Regular rate and regular rhythm. EXTREMITIES: Neurovascularly intact x4, right lower extremity with external fixator in place. NEUROLOGIC: No focal deficits. GCS 15. LABORATORY DATA: WBC 6.8, RBC 3.17, hemoglobin 8.5, hematocrit 27.3, and platelets 193. Sodium 135, potassium 4.3, chloride 97, BUN 10, creatinine 0.88, estimated GFR greater than 90, and glucose 95. Phosphorus 4.3. Magnesium 1.6. DIAGNOSTIC STUDIES: There are no new diagnostics to review today. ASSESSMENT: 1. Status post ground-level fall. 2. Status post irrigation and debridement and external fixator placement of a grade 3 right open tibia fibula fracture, dislocation. 3. Acute kidney injury, resolved. 4. [id number] hyponatremia, stable. 5. Acute adrenal insufficiency, stable. 6. History of chronic obstructive pulmonary disease. 7. Congestive heart failure. 8. Pulmonary hypertension. 9. Morbid obesity. 10. Atrial fibrillation. 11. Alcohol abuse. 12. Obstructive sleep apnea. PLAN: Continue supportive care and pain regimen. Continue BiPAP at night or as needed. Increase physical and occupational therapy. Replace magnesium. We will add melatonin at night to see if this helps with his sleep. The plan was discussed with the patient and attending. Job ID: [id number]
[2020-10-19] MEDS ORDERED: Magnesium Sulfate 3 GM in Sodium Chloride 0.9% 100 ML IVPB SCH (20:00)
[2020-10-19] MEDS: Melatonin 3 MG TAB PO SCH (20:06)
[2020-10-19] MEDS ORDERED: Melatonin 3 MG TAB PO SCH (21:00)
--- NOTE | 2020-10-20 02:29 | PRG ---
DATE OF SERVICE: 10/19/2020 SUBJECTIVE: Patient was seen this evening during rounds. He was lying in bed, resting comfortably and asleep with no signs of acute distress. BiPAP was in place and fitting appropriately. OBJECTIVE: VITAL SIGNS: Temperature 98.2, pulse 76, respirations 20, oxygen saturation 96% on BiPAP, blood pressure 149/72. ASSESSMENT: 1. Status post ground level fall. 2. Right open tibia-fibula fracture, status post external fixator. 3. Acute kidney injury, resolved. 4. Acute adrenal insufficiency, resolved. 5. History of chronic obstructive pulmonary disease, congestive heart failure, pulmonary hypertension, obesity, hyponatremia, atrial fibrillation/flutter, alcohol abuse, and obstructive sleep apnea. PLAN: Continue current diet and pain regimen. Continue physical and occupational therapy. Continue supportive care. The patient does not have resources to go to rehab facility and such, we are [facility] bed. Job ID: [id number]
[2020-10-20] MEDS: Oxazepam 10 MG CAP PO SCH ×4 (03:23→22:13)
[2020-10-20] MEDS: traMADol HCl 50 MG TAB PO SCH ×4 (03:23→22:14)
[2020-10-20] MEDS: Acetaminophen 500 MG TAB PO SCH ×4 (03:24→22:13)
[2020-10-20] MEDS: Cephalexin 250 MG CAP PO SCH ×4 (05:10→23:11)
[2020-10-20] MEDS: Apixaban 5 MG TAB PO SCH ×2 (08:37→22:13)
[2020-10-20] MEDS: Thiamine 100 MG TAB PO SCH (08:38)
[2020-10-20] MEDS: Sotalol HCl 80 MG TAB PO SCH ×2 (08:38→22:13)
[2020-10-20] MEDS: Aspirin 81 mg Enteric Coated Tablet PO SCH (08:38)
[2020-10-20] MEDS: Spironolactone 25 MG TAB PO SCH (08:39)
[2020-10-20] MEDS: Potassium Chloride 10 MEQ TAB PO SCH (08:39)
[2020-10-20] MEDS: Multivit, Therapeutic 1 TAB PO SCH (08:39)
[2020-10-20] MEDS: Furosemide 40 MG TAB PO SCH (08:39)
[2020-10-20] MEDS: Magnesium Oxide 400 MG TAB PO SCH (08:39)
[2020-10-20] MEDS: Folic Acid 1 MG TAB PO SCH (08:39)
[2020-10-20] MEDS: PHOS-NAK 1 PKT PACK PO SCH ×2 (08:46→22:15)
[2020-10-20] MEDS: Senokot S 8.6-50 MG TAB PO SCH ×3 (08:48→23:10)
[2020-10-20] MEDS: Polyethylene Glycol 3350 17 GM Packet PO SCH (08:48)
[2020-10-20 13:24] VITALS: BMI 58.6
--- NOTE | 2020-10-20 18:30 | PRG ---
DATE OF SERVICE: 10/20/2020 SUBJECTIVE: Patient was seen during morning rounds by Dr. Rice. The patient is awake, alert, in no distress. The patient has no overnight events. The patient voices no complaints or concerns at this time. The patient is tolerating his diet. The patient did have a bowel movement this morning. OBJECTIVE: VITAL SIGNS: Temperature 97.9, pulse 89, respirations 18, SpO2 88% on room air, blood pressure 137/69. GENERAL: Middle-aged male, morbidly obese, lying in hospital bed, in no distress. HEENT: Unremarkable. RESPIRATORY: Good inspiratory and expiratory effort. Respirations are even and nonlabored. CARDIAC: Regular rate, regular rhythm. EXTREMITIES: Neurovascularly intact x4. Right lower extremity with external fixator in place. NEUROLOGIC: No focal deficits. LABORATORY DATA: No new labs to evaluate today. DIAGNOSTICS: No new diagnostics. ASSESSMENT: 1. Status post ground level fall. 2. Morbid obesity. 3. Status post irrigation and debridement and external fixator placement of a grade 3 right open tibia-fibula fracture, dislocation. 4. Acute kidney injury, resolved. 5. Acute on chronic hyponatremia, stable. 6. Acute adrenal insufficiency, stable. 7. History of chronic obstructive pulmonary disease, congestive heart failure, pulmonary hypertension, morbid obesity, atrial fibrillation, alcohol abuse, and obstructive sleep apnea. PLAN: Continue supportive care and pain regimen. Continue BiPAP at night or as needed. Increase physical and occupational therapy. Unfortunately, patient's insurance does not provide any type of rehab or skilled facility nor does it include home health. Case Management is working on a [facility] bed at this time. The plan was discussed with the patient who agrees. Request has been sent to [facility] for a [facility] bed and Dr. Leahy is reviewing at this time. The plan was discussed with the patient who agrees. The patient was examined by Dr. Rice. Job ID: [id number]
[2020-10-20] MEDS: Melatonin 3 MG TAB PO SCH (22:13)
--- NOTE | 2020-10-21 00:17 | PRG ---
DATE OF SERVICE: 10/20/2020 SUBJECTIVE: Patient was seen this evening during rounds. He was lying in bed with no signs of acute distress. The patient reported that he felt like his breathing was a little bit worse today, has not received his nighttime nebulizer. Nursing was asked to call RT. There were no signs of acute respiratory distress at the time of my evaluation. OBJECTIVE: VITAL SIGNS: Temperature 98.1, pulse 93, respirations 18, oxygen saturation 92% on 3 L nasal cannula, blood pressure 117/67. ASSESSMENT: 1. Status post ground-level fall. 2. Right open tib-fib fracture, status post ex-fix. 3. Acute kidney injury, resolved. 4. Acute adrenal insufficiency, resolved. 5. History of chronic obstructive pulmonary disease, congestive heart failure, pulmonary hypertension, obesity, hyponatremia, atrial fibrillation, atrial flutter, alcohol abuse, and obstructive sleep apnea. PLAN: Continue current diet and pain regimen. Continue physical and occupational therapy. Continue aggressive pulmonary hygiene with incentive spirometry. RT to give the patient neb this evening as per schedule. We will add additional nebs p.r.n. for additional needs. Job ID: [id number]
[2020-10-21] MEDS: traMADol HCl 50 MG TAB PO SCH ×4 (05:06→22:15)
[2020-10-21] MEDS: Acetaminophen 500 MG TAB PO SCH ×4 (05:06→22:14)
[2020-10-21] MEDS: Cephalexin 250 MG CAP PO SCH ×4 (05:07→23:20)
[2020-10-21] MEDS: Oxazepam 10 MG CAP PO SCH ×4 (05:07→22:14)
[2020-10-21] MEDS: PHOS-NAK 1 PKT PACK PO SCH ×2 (08:42→20:28)
[2020-10-21] MEDS: Folic Acid 1 MG TAB PO SCH (08:42)
[2020-10-21] MEDS: Aspirin 81 mg Enteric Coated Tablet PO SCH (08:42)
[2020-10-21] MEDS: Sotalol HCl 80 MG TAB PO SCH ×2 (08:42→20:26)
[2020-10-21] MEDS: Magnesium Oxide 400 MG TAB PO SCH (08:42)
[2020-10-21] MEDS: Apixaban 5 MG TAB PO SCH ×2 (08:42→20:28)
[2020-10-21] MEDS: Potassium Chloride 10 MEQ TAB PO SCH (08:43)
[2020-10-21] MEDS: Multivit, Therapeutic 1 TAB PO SCH (08:43)
[2020-10-21] MEDS: Furosemide 40 MG TAB PO SCH (08:43)
[2020-10-21] MEDS: Spironolactone 25 MG TAB PO SCH (08:44)
[2020-10-21] MEDS: Polyethylene Glycol 3350 17 GM Packet PO SCH (08:45)
[2020-10-21] MEDS: Thiamine 100 MG TAB PO SCH (08:45)
[2020-10-21] MEDS: Senokot S 8.6-50 MG TAB PO SCH ×2 (08:45→20:29)
--- NOTE | 2020-10-21 18:57 | PRG ---
DATE OF SERVICE: 10/21/2020 SUBJECTIVE: The patient was seen during morning rounds, resting with his BiPAP in place. The patient had no overnight events. OBJECTIVE: VITAL SIGNS: Temperature 98.0, pulse 71, respirations 20, SpO2 of 97% on room air, blood pressure 126/70. GENERAL: Middle-aged male, resting comfortably in no distress. HEENT: Unremarkable. RESPIRATORY: Good inspiratory and expiratory effort, nonlabored. CARDIAC: Regular rate, regular rhythm. EXTREMITIES: Neurovascularly intact x4. Right lower extremity with external fixator in place. ASSESSMENT: 1. Status post ground level fall. 2. Morbid obesity. 3. Status post irrigation and debridement and external fixator placement of grade 3 right open tibia-fibular fracture, dislocation. 4. Acute kidney injury, resolved. 5. Acute on chronic hyponatremia, stable. 6. Acute adrenal insufficiency, stable. 7. History of chronic obstructive pulmonary disease, congestive heart failure, pulmonary hypertension, morbid obesity, atrial fibrillation, alcohol abuse, and obstructive sleep apnea. PLAN: Continue supportive care and pain regimen. Increase physical and occupational therapy. Continue BiPAP at night or as needed for sleep. The patient is pending a [facility] bed for continued prison and rehab. Job ID: [id number]
[2020-10-21] MEDS: Melatonin 3 MG TAB PO SCH (20:28)
--- NOTE | 2020-10-22 01:57 | PRG ---
DATE OF SERVICE: 10/21/2020 SUBJECTIVE: The patient was seen this evening during rounds. He was lying in bed, resting comfortably and asleep with BiPAP in place. Nursing reported no acute events. OBJECTIVE: VITAL SIGNS: Temperature 98.0, pulse 70, respirations 16, oxygen saturation 96% on BiPAP, blood pressure 116/61. ASSESSMENT: 1. Status post ground level fall. 2. Right open tibia-fibula fracture, status post repair. 3. Acute kidney injury, resolved. 4. Acute renal insufficiency, resolved. 5. History of chronic obstructive pulmonary disease, congestive heart failure, pulmonary hypertension, obesity, hyponatremia, atrial fibrillation and atrial flutter, alcohol abuse, and obstructive sleep apnea. PLAN: Continue current diet and pain regimen. Continue physical and occupational therapy. Continue supportive care. The patient is pending discharge to acute rehab facility via [facility]. We are pending decision by [facility]. He is ready for discharge at this time. Job ID: [id number]
[2020-10-22] MEDS: traMADol HCl 50 MG TAB PO SCH (03:21)
[2020-10-22] MEDS: Oxazepam 10 MG CAP PO SCH (03:21)
[2020-10-22] MEDS: Acetaminophen 500 MG TAB PO SCH ×4 (03:22→22:06)
[2020-10-22] MEDS: Cephalexin 250 MG CAP PO SCH ×4 (05:17→22:51)
[2020-10-22] MEDS: Potassium Chloride 10 MEQ TAB PO SCH (09:04)
[2020-10-22] MEDS: Apixaban 5 MG TAB PO SCH ×2 (09:04→20:01)
[2020-10-22] MEDS: Aspirin 81 mg Enteric Coated Tablet PO SCH (09:04)
[2020-10-22] MEDS: Multivit, Therapeutic 1 TAB PO SCH (09:04)
[2020-10-22] MEDS: Thiamine 100 MG TAB PO SCH (09:05)
[2020-10-22] MEDS: Furosemide 40 MG TAB PO SCH (09:05)
[2020-10-22] MEDS: Sotalol HCl 80 MG TAB PO SCH ×2 (09:05→20:01)
[2020-10-22] MEDS: Folic Acid 1 MG TAB PO SCH (09:05)
[2020-10-22] MEDS: Magnesium Oxide 400 MG TAB PO SCH (09:05)
[2020-10-22] MEDS: PHOS-NAK 1 PKT PACK PO SCH ×2 (09:05→20:01)
[2020-10-22] MEDS: Polyethylene Glycol 3350 17 GM Packet PO SCH (09:06)
[2020-10-22] MEDS: Senokot S 8.6-50 MG TAB PO SCH ×2 (09:08→20:01)
[2020-10-22] MEDS: Spironolactone 25 MG TAB PO SCH (09:11)
[2020-10-22] MEDS ORDERED: traMADol HCl 50 MG TAB PO PRN (11:45)
--- NOTE | 2020-10-22 12:15 | EKG ---
Test Reason : Blood Pressure : / mmHG Vent. Rate : 085 BPM Atrial Rate : 085 BPM P-R Int : 164 ms QRS Dur : 086 ms QT Int : 374 ms P-R-T Axes : 045 055 043 degrees QTc Int : 445 ms Normal sinus rhythm Normal ECG Confirmed by ANSELMO PRUITT ([id number]), scientific publications editor FITZ DICKEY ([id number]) on 10/22/2020 12:15:05 PM Referred By: Confirmed By:ANSELMO PRUITT
[2020-10-22] MEDS: traMADol HCl 50 MG TAB PO PRN ×2 (12:45→22:07)
--- NOTE | 2020-10-22 14:58 | PRG ---
DATE OF SERVICE: 10/22/2020 SUBJECTIVE: Nikita is a 50-year-old male, postop day 10 with external fixation treatment of an open fracture dislocation of the right ankle. He has been doing relatively well. He is complaining of discomfort and pain management per Trauma Team. OBJECTIVE: His splint looks good. It is intact. There is no strike through. No erythema. No drainage. IMPRESSION: A 50-year-old obese male postop day 10 from external fixation device for open fracture dislocation of the right ankle. PLAN: We will plan for taking out his dressing tomorrow, initiating pin site care. Job ID: [id number]
--- NOTE | 2020-10-22 15:27 | PRG ---
DATE OF SERVICE: 10/22/2020 SUBJECTIVE: The patient was seen during morning rounds in hospital bed, in no distress. The patient does report some increased pain today as he worked with Physical Therapy and put some weight on it. Otherwise, tolerating a diet and his BiPAP when asleep. OBJECTIVE: VITAL SIGNS: Temperature 98, pulse 75, respirations 14, SpO2 95% on 2 L nasal cannula, blood pressure 109/65. GENERAL: Middle-aged male, morbidly obese, in no distress. HEENT: Unremarkable. RESPIRATORY: Good inspiratory and expiratory effort. Respirations are even and nonlabored. EXTREMITIES: Moves all extremities, external fixator to right lower extremity. ASSESSMENT: 1. Status post ground-level fall. 2. Right open tibia-fibula fracture, status post repair with external fixator. 3. Acute kidney injury, resolved. 4. Acute adrenal insufficiency, resolved. 5. History of chronic obstructive pulmonary disease, congestive heart failure, pulmonary hypertension, obesity, hyponatremia, atrial fibrillation and atrial flutter, alcohol abuse, and obstructive sleep apnea. PLAN: Continue current diet and pain regimen. Continue to increase physical and occupational therapy. The patient is pending acceptance to a [facility] bed. Unfortunately, the patient's insurance does not cover any rehab or detention facilities. The patient is ready for discharge at this time. Job ID: [id number] MTDD
[2020-10-22] MEDS: Melatonin 3 MG TAB PO SCH (20:01)
--- NOTE | 2020-10-23 01:27 | PRG ---
DATE OF SERVICE: 10/22/2020 SUBJECTIVE: The patient was seen this evening during rounds. He was sitting up in bed, awake and alert with no signs of acute distress. He reported he started putting weight on his extremities, working with physical therapy. Pain is controlled. Tolerating a diet. Reports respiratory status is baseline and unlabored. OBJECTIVE: VITAL SIGNS: Temperature 97.8, pulse 86, respirations 20, oxygen saturation 95% on 3 L nasal cannula, blood pressure 113/66. ASSESSMENT: 1. Status post ground level fall. 2. Right open tib-fib fracture, status post Ex-Fix. 3. Acute kidney injury, resolved. 4. Acute adrenal insufficiency, resolved. 5. History of chronic obstructive pulmonary disease, congestive heart failure, pulmonary hypertension, obesity, hyponatremia, atrial fibrillation and atrial flutter, alcohol abuse, and obstructive sleep apnea. PLAN: Continue current diet and pain regimen. Continue physical and occupational therapy. Continue supportive care. The patient is pending discharge to rehab facility with [facility]. He is ready for discharge at this time. Job ID: [id number]
[2020-10-23] MEDS: Cephalexin 250 MG CAP PO SCH ×3 (05:04→18:16)
[2020-10-23] MEDS: Acetaminophen 500 MG TAB PO SCH ×4 (05:05→21:32)
[2020-10-23] MEDS: Aspirin 81 mg Enteric Coated Tablet PO SCH (08:22)
[2020-10-23] MEDS: Polyethylene Glycol 3350 17 GM Packet PO SCH (08:22)
[2020-10-23] MEDS: Folic Acid 1 MG TAB PO SCH (08:23)
[2020-10-23] MEDS: PHOS-NAK 1 PKT PACK PO SCH ×2 (08:23→20:40)
[2020-10-23] MEDS: Magnesium Oxide 400 MG TAB PO SCH (08:23)
[2020-10-23] MEDS: Spironolactone 25 MG TAB PO SCH (08:23)
[2020-10-23] MEDS: Sotalol HCl 80 MG TAB PO SCH ×2 (08:23→20:40)
[2020-10-23] MEDS: Senokot S 8.6-50 MG TAB PO SCH ×2 (08:24→20:40)
[2020-10-23] MEDS: Potassium Chloride 10 MEQ TAB PO SCH (08:24)
[2020-10-23] MEDS: traMADol HCl 50 MG TAB PO PRN ×2 (08:24→18:17)
[2020-10-23] MEDS: Multivit, Therapeutic 1 TAB PO SCH (08:24)
[2020-10-23] MEDS: Thiamine 100 MG TAB PO SCH (08:24)
[2020-10-23] MEDS: Apixaban 5 MG TAB PO SCH ×2 (08:24→20:41)
[2020-10-23] MEDS: Furosemide 40 MG TAB PO SCH (08:24)
[2020-10-23] MEDS: Oxazepam 10 MG CAP PO SCH ×2 (13:15→18:16)
--- NOTE | 2020-10-23 17:51 | PRG ---
DATE OF SERVICE: 10/23/2020 SUBJECTIVE: The patient was seen during morning rounds, awake, alert, in no distress. The patient states that he did not sleep as well last night. The patient says it is possible he slept too much during the day. Pain is controlled at this time. He is tolerating his diet. The patient continues to use the CPAP when asleep. OBJECTIVE: VITAL SIGNS: Temperature 98.0, pulse 77, respirations 18, SpO2 of 95% on room air, and BP 146/79. GENERAL: Middle-age male, morbidly obese, in no distress. HEENT: Unremarkable. RESPIRATORY: Good inspiratory and expiratory effort, respirations even and nonlabored. Extremities: Moves all extremities, neurovascularly intact x4, external fixator to right lower extremity, bandaged. Dressing clean, dry, and intact. NEUROLOGIC: No focal deficits. LABORATORY DATA: There are no new labs or diagnostics to review today. ASSESSMENT: 1. Status post ground level fall. 2. Right open tibia-fibula fracture, status post repair with external fixator. 3. Acute kidney injury, resolved. 4. Acute renal insufficiency, resolved. 5. History of chronic obstructive pulmonary disease, congestive heart failure, pulmonary hypertension, obesity, hyponatremia, atrial fibrillation and atrial flutter, alcohol abuse, and obstructive sleep apnea. PLAN: Continue supportive care and pain regimen. Continue to increase physical and occupational therapy. The patient is pending acceptance to a [facility] at inpatient rehab. Job ID: [id number]
[2020-10-23] MEDS: Melatonin 3 MG TAB PO SCH (20:40)
[2020-10-23] MEDS: traMADol HCl 50 MG TAB PO SCH (21:32)
--- NOTE | 2020-10-23 23:36 | PRG ---
DATE OF SERVICE: 10/23/2020 SUBJECTIVE: The patient was seen this evening during rounds. He was sitting up, awake and alert with no signs of acute distress. He reported that since his pain regimen was deescalated earlier today he was needing more pain medications. His tramadol was decreased from q.6 hours to q.8 hours with no breakthrough pain medications. I did discuss with him the importance of occasionally downgrade the pain medications and making additional adjustments if they were not working. He was in agreement. I did add breakthrough pain medications with tramadol q.6 hours. OBJECTIVE: VITAL SIGNS: Temperature 98.3, pulse 76, respirations 18, oxygen saturation 95% on 3 L nasal cannula, blood pressure 125/74. ASSESSMENT: 1. Status post ground level fall. 2. Right open tibia-fibula fracture, status post external fixation. 3. History of chronic obstructive pulmonary disease, congestive heart failure, pulmonary hypertension, obesity, hyponatremia, atrial fibrillation/atrial flutter, alcohol abuse, and obstructive sleep apnea. PLAN: Continue current diet and pain regimen. Continue physical and occupational therapy. Continue supportive care. Pain regimen has been adjusted. Nursing to contact Trauma Team if the patient having pain issues overnight. Trauma team will discuss duration of Keflex tomorrow. Continue overnight. The patient is pending discharge to [facility] rehab bed. He is ready for discharge at this time. Job ID: [id number]
[2020-10-24] MEDS: Cephalexin 250 MG CAP PO SCH ×4 (00:29→18:19)
[2020-10-24] MEDS: Oxazepam 10 MG CAP PO SCH ×4 (00:29→18:19)
[2020-10-24] MEDS: Acetaminophen 500 MG TAB PO SCH ×4 (03:17→21:56)
[2020-10-24 06:02] LABS: #Basophils 0.1 thou/uL (0.0-0.2); #Eosinphils 0.1 thou/uL (0.0-0.7); #Lymphocytes 2.2 thou/uL (1.20-3.40); #Monocytes 0.8 thou/uL (0.11-0.59); %Basophils 0.7 % (0.0-1.0); %Eosinophils 2.1 % (0.0-10.0); %Lymphocytes 30.6 % (21.0-51.0); %Monocytes 11.4 % (0.0-10.0); %Neutrophils 55.3 % (42.0-75.0); Hemoglobin 9.2 g/dL (14.0-18.0); Mean Corpuscular HGB CONC 30.7 g/dL (32.0-36.0); Mean Corpuscular Hemoglobin 26.1 pg (27.0-31.0); Mean Corpuscular Volume 84.9 fL (78.0-98.0); Mean Platelet Volume 7.8 fL (7.4-10.4); Platelet Count 309 thou/uL (130-400); RBC Distribution Width 17.3 % (11.5-14.5); Red Blood Cell (RBC) Count 3.54 mill/uL (4.70-6.10); White Blood Cell (WBC) Count 7.2 thou/uL (4.8-10.8)
[2020-10-24] MEDS: traMADol HCl 50 MG TAB PO SCH ×3 (06:02→21:55)
[2020-10-24 06:23] LABS: Anion Gap 15 mmol/L (10-20); BUN (Urea Nitrogen) 14 mg/dL (8.9-20.6); Calc. Creatinine Clearance 233 mL/min (70-130); Calcium 9.3 mg/dL (7.8-10.44); Carbon Dioxide 27 mmol/L (22-29); Chloride 96 mmol/L (98-107); Glucose 100 mg/dL (70-105); Magnesium 1.7 mg/dL (1.6-2.6); Phosphorus 5.5 mg/dL (2.3-4.7); Potassium 4.3 mmol/L (3.5-5.1); Sodium 134 mmol/L (136-145)
[2020-10-24] MEDS: PHOS-NAK 1 PKT PACK PO SCH ×2 (09:05→21:54)
[2020-10-24] MEDS: Polyethylene Glycol 3350 17 GM Packet PO SCH (09:05)
[2020-10-24] MEDS: Multivit, Therapeutic 1 TAB PO SCH (09:06)
[2020-10-24] MEDS: Magnesium Oxide 400 MG TAB PO SCH (09:06)
[2020-10-24] MEDS: Sotalol HCl 80 MG TAB PO SCH ×2 (09:06→21:56)
[2020-10-24] MEDS: Aspirin 81 mg Enteric Coated Tablet PO SCH (09:06)
[2020-10-24] MEDS: Senokot S 8.6-50 MG TAB PO SCH ×2 (09:07→21:55)
[2020-10-24] MEDS: Spironolactone 25 MG TAB PO SCH (09:07)
[2020-10-24] MEDS: Folic Acid 1 MG TAB PO SCH (09:07)
[2020-10-24] MEDS: Thiamine 100 MG TAB PO SCH (09:07)
[2020-10-24] MEDS: Magnesium 2 GM/50 ML 2 GM in Premix Bag 1 BAG IVPB SCH ×2 (09:07→10:21)
[2020-10-24] MEDS: Apixaban 5 MG TAB PO SCH ×2 (09:07→21:55)
[2020-10-24] MEDS: Potassium Chloride 10 MEQ TAB PO SCH (09:07)
[2020-10-24] MEDS: Furosemide 40 MG TAB PO SCH (09:21)
[2020-10-24] MEDS: traMADol HCl 50 MG TAB PO PRN (13:32)
--- NOTE | 2020-10-24 15:55 | PRG ---
DATE OF SERVICE: 10/24/2020 SUBJECTIVE: The patient was seen during morning rounds with Dr. Rice. The patient is currently awake, alert, no distress. The patient's pain is controlled at this time. The patient had no overnight events. The patient continues to use CPAP when asleep. OBJECTIVE: VITAL SIGNS: Temperature 98.3, pulse 68, respirations 20, SpO2 of 97% on BiPAP, blood pressure 108/55. GENERAL: Well-appearing male, morbidly obese, in no distress. HEENT: Unremarkable. RESPIRATORY: Good inspiratory and expiratory effort, no respiratory distress. EXTREMITIES: Neurovascularly intact x4, external fixator in place in the right lower extremity, bandage clean, dry, and intact. NEUROLOGIC: No focal deficits. LABORATORY DATA: WBC 7.2, RBC 3.54, hemoglobin 9.4, hematocrit 30.1, platelets 309. Sodium 134, potassium 4.3, chloride 96, BUN 14, creatinine 0.95, estimated GFR 84, glucose 100, calcium 9.3, phosphorus 5.5, magnesium 1.7. ASSESSMENT: 1. Status post ground level fall. 2. Right open tibia-fibula fracture, status post repair with external fixator. 3. Acute kidney injury, resolved. 4. Acute adrenal insufficiency, resolved. 5. History of chronic obstructive pulmonary disease, congestive heart failure, pulmonary hypertension, obesity, hyponatremia, atrial fibrillation and atrial flutter, alcohol abuse, and obstructive sleep apnea. 6. Congestive heart failure exacerbation, resolved. PLAN: Continue supportive care and pain regimen. Continue to increase physical and occupational therapy. Case Management has sent out referrals to multiple locations in attempt to obtain a [facility] bed. Job ID: [id number]
[2020-10-24] MEDS: Melatonin 3 MG TAB PO SCH (21:56)
[2020-10-25] MEDS: Oxazepam 10 MG CAP PO SCH ×4 (00:15→18:45)
[2020-10-25] MEDS: Cephalexin 250 MG CAP PO SCH ×4 (00:15→17:41)
--- NOTE | 2020-10-25 02:27 | PRG ---
DATE OF SERVICE: 10/24/2020 SUBJECTIVE: The patient was seen this evening during rounds. He was lying in bed, resting comfortably, and asleep with no signs of acute distress. Nursing reported no acute events. OBJECTIVE: VITAL SIGNS: Temperature 97.7, pulse 75, respirations 18, oxygen saturation 96% on BiPAP, blood pressure 114/62. ASSESSMENT: 1. Status post ground level fall. 2. Right open tibia-fibula fracture, status post repair. 3. History of chronic obstructive pulmonary disease, congestive heart failure, pulmonary hypertension, obesity, hyponatremia, atrial fibrillation/atrial flutter, alcohol abuse, and obstructive sleep apnea. PLAN: Continue current diet and pain regimen. Continue physical and occupational therapy. The patient is pending discharge to [facility]. He is ready for discharge at this time. Job ID: [id number]
[2020-10-25] MEDS: Acetaminophen 500 MG TAB PO SCH ×4 (04:39→21:20)
[2020-10-25] MEDS: traMADol HCl 50 MG TAB PO SCH ×3 (06:08→21:21)
[2020-10-25] MEDS: Polyethylene Glycol 3350 17 GM Packet PO SCH (08:36)
[2020-10-25] MEDS: PHOS-NAK 1 PKT PACK PO SCH ×2 (08:37→21:21)
[2020-10-25] MEDS: Senokot S 8.6-50 MG TAB PO SCH ×2 (08:38→21:21)
[2020-10-25] MEDS: Magnesium Oxide 400 MG TAB PO SCH (08:38)
[2020-10-25] MEDS: Apixaban 5 MG TAB PO SCH ×2 (08:38→21:21)
[2020-10-25] MEDS: Aspirin 81 mg Enteric Coated Tablet PO SCH (08:38)
[2020-10-25] MEDS: Multivit, Therapeutic 1 TAB PO SCH (08:39)
[2020-10-25] MEDS: Sotalol HCl 80 MG TAB PO SCH ×2 (08:39→21:21)
[2020-10-25] MEDS: Potassium Chloride 10 MEQ TAB PO SCH (08:39)
[2020-10-25] MEDS: Folic Acid 1 MG TAB PO SCH (08:39)
[2020-10-25] MEDS: Furosemide 40 MG TAB PO SCH (08:40)
[2020-10-25] MEDS: Spironolactone 25 MG TAB PO SCH (08:40)
[2020-10-25] MEDS: Thiamine 100 MG TAB PO SCH (08:40)
--- NOTE | 2020-10-25 16:12 | PRG ---
DATE OF SERVICE: 10/25/2020 SUBJECTIVE: This patient was seen during morning rounds. Awake, alert, in no distress. The patient's pain has been controlled. The patient had no overnight events. The patient continues to use his BiPAP at night or when sleeping. The patient continues to tolerate his diet. OBJECTIVE: VITAL SIGNS: Temperature 97.8, pulse 71, respirations 20, SpO2 of 95% on 3 L nasal cannula, and blood pressure 116/65. GENERAL: Middle aged male, severely obese, in no distress. HEENT: Unremarkable. RESPIRATORY: Good inspiratory and expiratory effort, no distress. EXTREMITIES: Neurologically intact x4, external fixator in place in right lower extremity. NEUROLOGIC: No focal deficits. LABORATORY DATA: There are no new labs or diagnostics to review today. ASSESSMENT: 1. Status post ground level fall. 2. Right open tibia-fibula fracture, status post repair with external fixator. 3. Acute kidney injury, resolved. 4. Acute adrenal insufficiency, resolved. 5. Congestive heart failure exacerbation, resolved. 6. History of chronic obstructive pulmonary disease. 7. Morbid obesity. 8. Congestive heart failure. 9. Pulmonary hypertension. 10. Hyponatremia. 11. Atrial fibrillation and atrial flutter. 12. Alcohol abuse. 13. Obstructive sleep apnea. PLAN: Continue supportive care and pain regimen. Continue to increase physical and occupational therapy. A [facility] referral was sent to inpatient rehab and the regional medical director feels that inpatient rehab is not appropriate for this patient at this time as he is morbidly obese and unable to bear weight. They feel the patient is more appropriate for group home or swing bed. Case Management is region out to multiple facilities to attempt to obtain a [facility] skilled bed or swing bed. Job ID: [id number]
[2020-10-25] MEDS: traMADol HCl 50 MG TAB PO PRN (17:43)
[2020-10-25] MEDS: Melatonin 3 MG TAB PO SCH (21:21)
[2020-10-26] MEDS: Oxazepam 10 MG CAP PO SCH ×4 (00:29→20:18)
--- NOTE | 2020-10-26 02:59 | PRG ---
DATE OF SERVICE: 10/25/2020 SUBJECTIVE: The patient was seen this evening during rounds. He was lying in bed, resting comfortably on CPAP with no signs of acute distress. Nursing reported no acute events. OBJECTIVE: VITAL SIGNS: Temperature 98.0, pulse 74, respirations 19, oxygen saturation 96% on BiPAP, blood pressure 117/66. ASSESSMENT: 1. Status post ground level fall. 2. Right open tib-fib fracture. 3. History of chronic obstructive pulmonary disease, congestive heart failure, pulmonary hypertension, obesity, hyponatremia, atrial fibrillation and atrial flutter, alcohol abuse, and obstructive sleep apnea. PLAN: Continue current diet and pain regimen. Continue physical and occupational therapy. The patient is pending discharge to on license of [facility]. Job ID: [id number]
[2020-10-26] MEDS: Acetaminophen 500 MG TAB PO SCH ×4 (05:04→22:28)
[2020-10-26] MEDS: traMADol HCl 50 MG TAB PO SCH ×3 (05:51→22:28)
[2020-10-26] MEDS: Senokot S 8.6-50 MG TAB PO SCH ×2 (10:09→20:19)
[2020-10-26] MEDS: Sotalol HCl 80 MG TAB PO SCH ×2 (10:09→20:19)
[2020-10-26] MEDS: Multivit, Therapeutic 1 TAB PO SCH (10:09)
[2020-10-26] MEDS: Aspirin 81 mg Enteric Coated Tablet PO SCH (10:10)
[2020-10-26] MEDS: Thiamine 100 MG TAB PO SCH (10:10)
[2020-10-26] MEDS: Apixaban 5 MG TAB PO SCH ×2 (10:11→20:19)
[2020-10-26] MEDS: Folic Acid 1 MG TAB PO SCH (10:11)
[2020-10-26] MEDS: Polyethylene Glycol 3350 17 GM Packet PO SCH (10:11)
[2020-10-26] MEDS: Potassium Chloride 10 MEQ TAB PO SCH (10:11)
[2020-10-26] MEDS: Magnesium Oxide 400 MG TAB PO SCH (10:11)
[2020-10-26] MEDS: Furosemide 40 MG TAB PO SCH (10:11)
[2020-10-26] MEDS: PHOS-NAK 1 PKT PACK PO SCH (10:49)
[2020-10-26] MEDS: Spironolactone 25 MG TAB PO SCH (11:13)
[2020-10-26] MEDS: traMADol HCl 50 MG TAB PO PRN ×2 (13:58→17:18)
--- NOTE | 2020-10-26 19:40 | PRG ---
DATE OF SERVICE: SUBJECTIVE: The patient is continued to be on the surgical floor. He is status post ground level fall, in which he sustained an open right tib-fib fracture, requiring external fixation. Unfortunately, the patient is unfunded for any type of post acute care, so our Case Management team is working diligently to attempt to find him [facility] placement. Otherwise, the patient continues to not have any complaints. He is tolerating a diet. His pain is controlled. He is using his BiPAP at night for his obstructive sleep apnea. PHYSICAL EXAMINATION: VITAL SIGNS: Temperature is 98.2, heart rate 72, blood pressure 117/67, respirations 18, and oxygen saturation is 96% on 3 L via nasal cannula. GENERAL: The patient is resting comfortably in bed. He has no reported issues. RESPIRATIONS: Nonlabored. ABDOMEN: Nondistended. EXTREMITIES: Neurovascularly intact. His right lower extremity has a clean, dry, and intact external fixator, specifically the pin sites. LABORATORY DATA: There are no labs or radiographs to review this morning. ASSESSMENT: 1. Status post ground level fall. 2. Right open tibia and fibular fracture, status post external fixator placement. 3. Multiple comorbidities, stable. PLAN: Plan will be to continue supportive care. Encourage working with Physical and Occupational Therapy and await placement decision. Job ID: [id number]
[2020-10-26] MEDS: Melatonin 3 MG TAB PO SCH (20:19)
[2020-10-27] MEDS: Oxazepam 10 MG CAP PO SCH ×2 (00:43→05:43)
[2020-10-27] MEDS: Acetaminophen 500 MG TAB PO SCH ×4 (05:41→21:02)
[2020-10-27] MEDS: traMADol HCl 50 MG TAB PO SCH ×3 (05:42→21:02)
[2020-10-27] MEDS: Aspirin 81 mg Enteric Coated Tablet PO SCH (09:19)
[2020-10-27] MEDS: Sotalol HCl 80 MG TAB PO SCH ×2 (09:19→19:51)
[2020-10-27] MEDS: Folic Acid 1 MG TAB PO SCH (09:20)
[2020-10-27] MEDS: Apixaban 5 MG TAB PO SCH ×2 (09:20→19:52)
[2020-10-27] MEDS: Magnesium Oxide 400 MG TAB PO SCH (09:20)
[2020-10-27] MEDS: Thiamine 100 MG TAB PO SCH (09:20)
[2020-10-27] MEDS: Multivit, Therapeutic 1 TAB PO SCH (09:20)
[2020-10-27] MEDS: Furosemide 40 MG TAB PO SCH (09:21)
[2020-10-27] MEDS: Potassium Chloride 10 MEQ TAB PO SCH (09:21)
[2020-10-27] MEDS: Spironolactone 25 MG TAB PO SCH (09:21)
[2020-10-27] MEDS: Senokot S 8.6-50 MG TAB PO SCH ×2 (09:22→19:52)
[2020-10-27] MEDS: Polyethylene Glycol 3350 17 GM Packet PO SCH (09:22)
--- NOTE | 2020-10-27 16:13 | PRG ---
DATE OF SERVICE: SUBJECTIVE: The patient remains on the surgical floor. He is status post ground level fall, in which he sustained a right open tib-fib fracture. He underwent operative procedure for placement of external fixator, which he is going to keep for the duration of his fracture healing. The patient is very slowly working with physical and occupational therapy and unfortunately, he is unfunded which is making placement very difficult. Otherwise, the patient's pain is controlled. He is tolerating a diet. His bowel function has returned. PHYSICAL EXAMINATION: VITAL SIGNS: Temperature is 98.0, heart rate 74, blood pressure 112/62, respirations 16, oxygen saturation 94% on 3 L via nasal cannula. GENERAL: The patient is resting comfortably in bed. He is awake, alert, conversant, and appropriate. [place] Coma Scale is 15. RESPIRATIONS: Nonlabored. ABDOMEN: Nondistended. EXTREMITIES: Neurovascularly intact x4. His external fixator pins are clean, dry, and intact. LABORATORY DATA: There are no labs or radiographs reviewed this morning. ASSESSMENT: 1. Status post ground level fall. 2. Right open tibia and fibular fracture, status post external fixator placement. 3. Multiple comorbidities, stable. PLAN: Will be to continue supportive care, encourage physical and occupational therapy, and await placement decision. The Case Management team is working on [facility] placement if possible and will also begin the Medicaid process if the patient will likely need this in the future for placement. Job ID: [id number]
[2020-10-27] MEDS: traMADol HCl 50 MG TAB PO PRN (18:31)
[2020-10-27] MEDS: Melatonin 3 MG TAB PO SCH (19:52)
[2020-10-28] MEDS: Acetaminophen 500 MG TAB PO SCH ×4 (05:05→22:01)
[2020-10-28] MEDS: traMADol HCl 50 MG TAB PO SCH ×3 (05:06→21:51)
[2020-10-28] MEDS: Sotalol HCl 80 MG TAB PO SCH ×2 (09:03→21:53)
[2020-10-28] MEDS: Magnesium Oxide 400 MG TAB PO SCH (09:04)
[2020-10-28] MEDS: Aspirin 81 mg Enteric Coated Tablet PO SCH (09:04)
[2020-10-28] MEDS: Thiamine 100 MG TAB PO SCH (09:04)
[2020-10-28] MEDS: Multivit, Therapeutic 1 TAB PO SCH (09:05)
[2020-10-28] MEDS: Furosemide 40 MG TAB PO SCH (09:06)
[2020-10-28] MEDS: Potassium Chloride 10 MEQ TAB PO SCH (09:06)
[2020-10-28] MEDS: Oxazepam 10 MG CAP PO SCH (09:06)
[2020-10-28] MEDS: Folic Acid 1 MG TAB PO SCH (09:06)
[2020-10-28] MEDS: Apixaban 5 MG TAB PO SCH ×2 (09:07→21:54)
[2020-10-28] MEDS: Polyethylene Glycol 3350 17 GM Packet PO SCH (09:07)
[2020-10-28] MEDS: Senokot S 8.6-50 MG TAB PO SCH ×2 (09:07→22:14)
[2020-10-28] MEDS: Spironolactone 25 MG TAB PO SCH (09:18)
[2020-10-28] MEDS: traMADol HCl 50 MG TAB PO PRN (17:52)
[2020-10-28] MEDS ORDERED: Melatonin 3 MG TAB PO SCH (22:15)
[2020-10-29] MEDS: traMADol HCl 50 MG TAB PO SCH ×3 (05:21→21:55)
[2020-10-29] MEDS: Acetaminophen 500 MG TAB PO SCH ×4 (05:22→21:56)
[2020-10-29] MEDS: Aspirin 81 mg Enteric Coated Tablet PO SCH (09:00)
[2020-10-29] MEDS: Sotalol HCl 80 MG TAB PO SCH ×2 (09:00→21:56)
[2020-10-29] MEDS: Thiamine 100 MG TAB PO SCH (09:01)
[2020-10-29] MEDS: Magnesium Oxide 400 MG TAB PO SCH (09:01)
[2020-10-29] MEDS: Apixaban 5 MG TAB PO SCH ×2 (09:01→21:57)
[2020-10-29] MEDS: Multivit, Therapeutic 1 TAB PO SCH (09:02)
[2020-10-29] MEDS: Potassium Chloride 10 MEQ TAB PO SCH (09:02)
[2020-10-29] MEDS: Folic Acid 1 MG TAB PO SCH (09:02)
[2020-10-29] MEDS: Furosemide 40 MG TAB PO SCH (09:02)
[2020-10-29] MEDS: Oxazepam 10 MG CAP PO SCH (09:03)
[2020-10-29] MEDS: Polyethylene Glycol 3350 17 GM Packet PO SCH (09:05)
[2020-10-29] MEDS: Senokot S 8.6-50 MG TAB PO SCH ×2 (11:16→21:57)
[2020-10-29] MEDS: Spironolactone 25 MG TAB PO SCH (11:16)
[2020-10-29] MEDS: traMADol HCl 50 MG TAB PO PRN ×2 (11:21→17:02)
--- NOTE | 2020-10-29 14:53 | PRG ---
DATE OF SERVICE: 10/29/2020 SUBJECTIVE: The patient is hospital day #17, status post ground level fall, in which he sustained an open fracture dislocation of his right ankle. The patient has undergone external fixator placement. He is unfunded, which has caused him to have an extended stay at our facility. The patient is continuing to work with therapy albeit slowly. The patient is tolerating a diet. His pain is controlled. He is voiding without difficulty and his bowel function has resumed. PHYSICAL EXAMINATION: VITAL SIGNS: Temperature is 98.0, heart rate 68, blood pressure 110/61, respirations 20, oxygen saturation 98% on 3 L via nasal cannula. GENERAL: The patient is resting comfortably in bed. He is awake, alert, conversant, appropriate. [place] Coma Scale is 15. RESPIRATIONS: Nonlabored. ABDOMEN: Nondistended. EXTREMITIES: Neurovascularly intact x4. His external fixator is clean, dry, and intact. The pins are clean, dry, and intact. LABORATORY DATA: There are no labs or radiographs reviewed this morning. ASSESSMENT AND PLAN: 1. Status post ground level fall. 2. Status post open right tibia and fibular fractures with external fixator placed. 3. Multiple comorbidities, stable. PLAN: Plan will be to continue encouraging physical and occupational therapy, work on placement. The patient was evaluated with Dr. Rice this morning during rounds. Job ID: [id number]
[2020-10-29] MEDS: Melatonin 3 MG TAB PO SCH (21:57)
[2020-10-30] MEDS: traMADol HCl 50 MG TAB PO SCH ×3 (05:28→21:26)
[2020-10-30] MEDS: Acetaminophen 500 MG TAB PO SCH ×4 (05:29→21:26)
[2020-10-30] MEDS: Apixaban 5 MG TAB PO SCH ×2 (09:22→21:26)
[2020-10-30] MEDS: Aspirin 81 mg Enteric Coated Tablet PO SCH (09:22)
[2020-10-30] MEDS: Folic Acid 1 MG TAB PO SCH (09:22)
[2020-10-30] MEDS: Magnesium Oxide 400 MG TAB PO SCH (09:22)
[2020-10-30] MEDS: Furosemide 40 MG TAB PO SCH (09:22)
[2020-10-30] MEDS: Multivit, Therapeutic 1 TAB PO SCH (09:23)
[2020-10-30] MEDS: Spironolactone 25 MG TAB PO SCH (09:23)
[2020-10-30] MEDS: Senokot S 8.6-50 MG TAB PO SCH ×2 (09:23→21:27)
[2020-10-30] MEDS: Potassium Chloride 10 MEQ TAB PO SCH (09:23)
[2020-10-30] MEDS: Polyethylene Glycol 3350 17 GM Packet PO SCH (09:24)
[2020-10-30] MEDS: Thiamine 100 MG TAB PO SCH (09:24)
[2020-10-30] MEDS: Sotalol HCl 80 MG TAB PO SCH ×2 (09:42→21:25)
--- NOTE | 2020-10-30 15:46 | PRG ---
DATE OF SERVICE: 10/30/2020 SUBJECTIVE: The patient is currently hospital day #18, status post ground level fall which he sustained an open fracture, dislocation, that required external fixation. The patient is unfunded, so he has been waiting for placement which we believe is going to happen this week. Otherwise, he is doing well. He is tolerating a diet. His bowel function was removed, and he is participating with therapy as much as he can. PHYSICAL EXAMINATION: VITAL SIGNS: Temperature is 99.0, heart rate 75, blood pressure 130/72, respirations 20, and oxygen saturation is 96% on 2 L via nasal cannula. GENERAL: The patient is resting comfortably in bed. He is awake, alert. [place] Coma Scale is 15. RESPIRATIONS: Nonlabored. ABDOMEN: Nondistended. EXTREMITIES: Neurovascularly intact x4. His external fixator is clean, dry, and intact. LABORATORY DATA: There were no labs or radiographs reviewed this morning. ASSESSMENT: 1. Status post ground level fall, hospital day #18. 2. Status post open right tibia and fibular fracture with external fixator placed. 3. Multiple comorbidities, stable. PLAN: Plan will be to continue encouraging physical and occupational therapy and await placement. Job ID: [id number]
[2020-10-30] MEDS: Melatonin 3 MG TAB PO SCH (21:26)
[2020-10-31] MEDS: Acetaminophen 500 MG TAB PO SCH ×4 (05:10→21:32)
[2020-10-31] MEDS: traMADol HCl 50 MG TAB PO SCH ×3 (05:10→21:33)
[2020-10-31] MEDS: Sotalol HCl 80 MG TAB PO SCH ×2 (09:59→21:32)
[2020-10-31] MEDS: Aspirin 81 mg Enteric Coated Tablet PO SCH (09:59)
[2020-10-31] MEDS: Folic Acid 1 MG TAB PO SCH (10:00)
[2020-10-31] MEDS: Apixaban 5 MG TAB PO SCH ×2 (10:00→21:33)
[2020-10-31] MEDS: Furosemide 40 MG TAB PO SCH (10:00)
[2020-10-31] MEDS: Potassium Chloride 10 MEQ TAB PO SCH (10:00)
[2020-10-31] MEDS: Magnesium Oxide 400 MG TAB PO SCH (10:00)
[2020-10-31] MEDS: Multivit, Therapeutic 1 TAB PO SCH (10:00)
[2020-10-31] MEDS: Spironolactone 25 MG TAB PO SCH (10:01)
[2020-10-31] MEDS: Thiamine 100 MG TAB PO SCH (10:01)
[2020-10-31] MEDS: Polyethylene Glycol 3350 17 GM Packet PO SCH (10:01)
[2020-10-31] MEDS: Senokot S 8.6-50 MG TAB PO SCH ×2 (10:01→21:34)
[2020-10-31] MEDS: traMADol HCl 50 MG TAB PO PRN ×2 (10:02→17:09)
--- NOTE | 2020-10-31 14:15 | PRG ---
DATE OF SERVICE: 10/31/2020 SUBJECTIVE: Nikita is a 50-year-old male, postop day #18 for an external fixation treatment of a large open ankle fracture dislocation with a very large skin complex laceration. He is doing relatively well. He has no complaints. He has not walked in and out of bed. OBJECTIVE: Temperature 98.1, pulse 70, respiratory rate 16, and blood pressure is 119/68. He is alert and oriented to person, place, time, and situation. His response is appropriate with examiner. His Ex-Fix is intact. He has no complaints of pain in and around fracture site. IMPRESSION: A 50-year-old obese male, postoperative day #18 for open ankle fracture dislocation and large complex skin laceration, treated with external fixation. PLAN: Continue current care. Placement per Trauma Team. Continue Ex-Fix for up to 6 weeks. Job ID: [id number]
--- NOTE | 2020-10-31 15:46 | PRG ---
DATE OF SERVICE: 10/31/2020 SUBJECTIVE: The patient is hospital day 19 status post a ground-level fall, which he sustained an open fracture dislocation of his right ankle. The patient had external fixator placed upon it. He is currently awaiting placement to [facility], which we believe is going to happen this week. Otherwise, the patient has no complaints. He is tolerating a diet. Pain is controlled. His bowel function is resumed. PHYSICAL EXAMINATION: VITAL SIGNS: Temperature 98.1, heart rate 70, blood pressure 119/68, respirations 16, and oxygen saturation 97% on room air. GENERAL: The patient is resting comfortably in bed. He is awake, alert, conversant, appropriate. [place] Coma Scale is 15. HEENT: Unremarkable. LUNGS: Clear to auscultation bilaterally. HEART: Regular rate and rhythm. ABDOMEN: Soft and nontender with active bowel sounds. EXTREMITIES: Neurovascularly intact x4. External fixator is in place, clean, dry, and intact. This was evaluated this morning by Orthopedics. LABORATORY DATA: There are no labs or radiographs to review this morning. ASSESSMENT AND PLAN: 1. Status post ground-level fall, hospital day 19. 2. Status post open right tibia-fibular fracture with external fixator placement. 3. Multiple comorbidities, stable. PLAN: Plan will be to encourage physical and occupational therapy and await placement. The patient was evaluated this morning with Dr. Haas during rounds. Job ID: [id number]
[2020-10-31] MEDS: Melatonin 3 MG TAB PO SCH (21:34)
[2020-11-01] MEDS: traMADol HCl 50 MG TAB PO SCH ×3 (05:04→21:17)
[2020-11-01] MEDS: Acetaminophen 500 MG TAB PO SCH ×4 (05:04→21:17)
[2020-11-01] MEDS: Potassium Chloride 10 MEQ TAB PO SCH (09:35)
[2020-11-01] MEDS: traMADol HCl 50 MG TAB PO PRN ×2 (09:35→17:03)
[2020-11-01] MEDS: Apixaban 5 MG TAB PO SCH ×2 (09:36→21:17)
[2020-11-01] MEDS: Multivit, Therapeutic 1 TAB PO SCH (09:36)
[2020-11-01] MEDS: Sotalol HCl 80 MG TAB PO SCH ×2 (09:36→21:18)
[2020-11-01] MEDS: Aspirin 81 mg Enteric Coated Tablet PO SCH (09:36)
[2020-11-01] MEDS: Magnesium Oxide 400 MG TAB PO SCH (09:36)
[2020-11-01] MEDS: Furosemide 40 MG TAB PO SCH (09:36)
[2020-11-01] MEDS: Thiamine 100 MG TAB PO SCH (09:36)
[2020-11-01] MEDS: Spironolactone 25 MG TAB PO SCH (09:36)
[2020-11-01] MEDS: Folic Acid 1 MG TAB PO SCH (09:36)
[2020-11-01] MEDS: Senokot S 8.6-50 MG TAB PO SCH ×2 (09:37→21:18)
[2020-11-01] MEDS: Polyethylene Glycol 3350 17 GM Packet PO SCH (09:37)
--- NOTE | 2020-11-01 18:21 | PRG ---
DATE OF SERVICE: 11/01/2020 SUBJECTIVE: The patient is hospital day #20 status post ground level fall, in which he sustained an open fracture dislocation of his right ankle. The patient had an external fixator placed by Orthopedic Surgery. The patient was approved for [facility] today. The patient is tolerating a diet and his pain is controlled at this time. The patient states that he was unaware that [facility] would be taken the majority of this check only leaving him with 40 dollars in which he cannot afford. The patient states that he needs all of his money to make payments on his trailer in which he lives in and needs all of his money to pay his bills. The patient is refusing to go to [facility] due to these reasons. Case Management has reached out to administration as the patient is refusing to go to [facility]. We have no other options as the patient is not safe to be discharged home as he is nonambulatory and unable to care for himself. OBJECTIVE: VITAL SIGNS: Temperature 98.1, pulse 66, respirations 18, SpO2 of 96% on 3 L nasal cannula, blood pressure 116/64. GENERAL: Middle-age male, morbidly obese, awake, alert, in no distress. GCS 15. HEENT: Unremarkable. RESPIRATORY: Good inspiratory and expiratory effort. Respirations are even and nonlabored. CARDIAC: Regular rate, regular rhythm. EXTREMITIES: Neurovascularly intact x4, external fixator in place and clean and dry to the right lower extremity. LABORATORY DATA: There are no new labs or diagnostics to review today. ASSESSMENT: 1. Status post ground level fall, hospital day #20. 2. Status post external fixator placement to the right open tib-fib fracture. PLAN: Continue supportive care and increase physical and occupational therapy. Again, the patient was approved [facility], but is refusing due to the requirement of the amount of money. Pending administration decision. Continue CPAP at night. The patient is not safe for discharge home due to his severe obesity and not ambulatory. Job ID: [id number]
[2020-11-01] MEDS: Melatonin 3 MG TAB PO SCH (21:17)
[2020-11-02] MEDS: traMADol HCl 50 MG TAB PO SCH ×3 (05:15→20:20)
[2020-11-02] MEDS: Acetaminophen 500 MG TAB PO SCH ×4 (05:15→20:20)
[2020-11-02] MEDS: Magnesium Oxide 400 MG TAB PO SCH (09:55)
[2020-11-02] MEDS: Spironolactone 25 MG TAB PO SCH (09:55)
[2020-11-02] MEDS: Aspirin 81 mg Enteric Coated Tablet PO SCH (09:55)
[2020-11-02] MEDS: Folic Acid 1 MG TAB PO SCH (09:56)
[2020-11-02] MEDS: Potassium Chloride 10 MEQ TAB PO SCH (09:56)
[2020-11-02] MEDS: Furosemide 40 MG TAB PO SCH (09:56)
[2020-11-02] MEDS: Multivit, Therapeutic 1 TAB PO SCH (09:56)
[2020-11-02] MEDS: Thiamine 100 MG TAB PO SCH (09:56)
[2020-11-02] MEDS: Apixaban 5 MG TAB PO SCH ×2 (09:56→20:21)
[2020-11-02] MEDS: Sotalol HCl 80 MG TAB PO SCH ×2 (09:56→20:18)
[2020-11-02] MEDS: traMADol HCl 50 MG TAB PO PRN ×2 (09:57→16:19)
[2020-11-02] MEDS: Polyethylene Glycol 3350 17 GM Packet PO SCH (09:58)
[2020-11-02] MEDS: Senokot S 8.6-50 MG TAB PO SCH ×2 (09:58→20:21)
--- NOTE | 2020-11-02 14:41 | PRG ---
DATE OF SERVICE: 11/02/2020 SUBJECTIVE: The patient is hospital day #21 status post ground level fall, in which he sustained an open fracture to his right distal tib-fib. An external fixator was placed by Orthopedic Surgery requiring to be on for 8 weeks. The patient has been approved for [facility], but the patient is continuing to refuse due to the amount of money they will take from this cheque leaving him with only 40 dollars a month. The patient had no overnight events. The patient's pain continues to be controlled. OBJECTIVE: VITAL SIGNS: Temperature 98.3, pulse 68, respirations 16, SpO2 of 99% on 3 L nasal cannula, blood pressure 136/70. GENERAL: Well-appearing, obese, middle-aged male, awake, alert, in no distress. RESPIRATORY: Good inspiratory and expiratory effort. Respirations are even and nonlabored. EXTREMITIES: Neurovascularly intact x4. External fixator in place. Clean and dry right lower extremity. LABORATORY DATA AND DIAGNOSTIC STUDIES: There is no new laboratory data or diagnostics to review. ASSESSMENT: 1. Status post ground level fall, hospital day #20. 2. Status post external fixator placement to the right open distal tib-fib fracture. PLAN: Continue supportive care. Increase physical and occupational therapy. The patient is ready for discharge to [facility] facility, but is refusing due to it not being free. Administration and case management working on situations. We will continue CPAP at night. The patient is not safe for discharge home due to his severe obesity and not able to get around. Job ID: [id number] MTDD
[2020-11-02] MEDS: Melatonin 3 MG TAB PO SCH (20:19)
[2020-11-03] MEDS: Acetaminophen 500 MG TAB PO SCH ×4 (03:39→20:09)
--- NOTE | 2020-11-03 08:33 | PRG ---
DATE OF SERVICE: 11/03/2020 SUBJECTIVE: Nikita is now postop day 22 for open right ankle fracture and large skin laceration. He is doing very well. He is still in his ex-fix and he has not been out of bed. OBJECTIVE: The incision looks exceptionally clean and reapproximated. Every other stitch was removed yesterday and they still appear clean and unmolested. IMPRESSION: A 50-year-old male, postop day 22, right open ankle fracture dislocation, treated with ex-fix and primary closure. PLAN: Continue current care. I will probably remove the rest of the stitches in the next day or two and leave him out of the splint. Job ID: [id number]
[2020-11-03] MEDS: Folic Acid 1 MG TAB PO SCH (08:42)
[2020-11-03] MEDS: Magnesium Oxide 400 MG TAB PO SCH (08:42)
[2020-11-03] MEDS: Apixaban 5 MG TAB PO SCH ×2 (08:42→20:09)
[2020-11-03] MEDS: Aspirin 81 mg Enteric Coated Tablet PO SCH (08:43)
[2020-11-03] MEDS: Multivit, Therapeutic 1 TAB PO SCH (08:43)
[2020-11-03] MEDS: Sotalol HCl 80 MG TAB PO SCH ×2 (08:43→20:09)
[2020-11-03] MEDS: Potassium Chloride 10 MEQ TAB PO SCH (08:43)
[2020-11-03] MEDS: Thiamine 100 MG TAB PO SCH (08:43)
[2020-11-03] MEDS: Furosemide 40 MG TAB PO SCH (08:43)
[2020-11-03] MEDS: Spironolactone 25 MG TAB PO SCH (08:43)
[2020-11-03] MEDS: Polyethylene Glycol 3350 17 GM Packet PO SCH (08:45)
[2020-11-03] MEDS: Senokot S 8.6-50 MG TAB PO SCH ×2 (08:45→20:03)
[2020-11-03] MEDS: traMADol HCl 50 MG TAB PO PRN ×2 (10:33→20:08)
--- NOTE | 2020-11-03 13:24 | PRG ---
DATE OF SERVICE: 11/03/2020 SUBJECTIVE: The patient is on hospital day #22 status post ground level fall in which he sustained an open fracture to the right distal tib-fib. External fixator was placed by Orthopedic Surgery. The patient has been approved for [facility] but continues to refuse due to "not wanting to give up his checks." The patient is tolerating diet and pain is controlled. OBJECTIVE: VITAL SIGNS: Blood pressure 120/69, pulse 85, temperature 98.3, respiratory rate 20, oxygen saturation 96% on 3 L. GENERAL: Awake, alert, and oriented, in no distress. HEENT: Unremarkable. RESPIRATORY: Good inspiratory and expiratory effort, nonlabored breathing. EXTREMITIES: Neurovascularly intact x4. External fixator in place on right leg. LABORATORY DATA: There are no new studies. ASSESSMENT: 1. Status post ground level fall, on hospital day #22. 2. Status post external fixator placement to the right lower extremity due to open distal tib-fib fracture. PLAN: Continue supportive care. Encourage physical and occupational therapy participation. The patient is ready for discharge to [facility] facility. Case Management including Administration are working on the situation. Recently, shared that his , who lives in his trailer with him, has intellectual disability and he is concerned for her if he does not go back home. The Administration and Case Management are working on possibly getting both he and his placement at this time. The patient is not safe for discharge home due to his injury, not being able to take care of himself and also not having any of the equipment he would need nor having someone who could help take care of him at home. Patient was seen and evaluated with Dr. Rice on morning rounds. Job ID: [id number] [facility]
[2020-11-03] MEDS: Melatonin 3 MG TAB PO SCH (20:08)
[2020-11-04] MEDS: Acetaminophen 500 MG TAB PO SCH ×4 (04:43→21:10)
[2020-11-04] MEDS: traMADol HCl 50 MG TAB PO PRN ×3 (04:43→21:18)
[2020-11-04] MEDS: Senokot S 8.6-50 MG TAB PO SCH ×2 (09:01→21:12)
[2020-11-04] MEDS: Aspirin 81 mg Enteric Coated Tablet PO SCH (09:01)
[2020-11-04] MEDS: Furosemide 40 MG TAB PO SCH (09:03)
[2020-11-04] MEDS: Potassium Chloride 10 MEQ TAB PO SCH (09:03)
[2020-11-04] MEDS: Thiamine 100 MG TAB PO SCH (09:03)
[2020-11-04] MEDS: Folic Acid 1 MG TAB PO SCH (09:03)
[2020-11-04] MEDS: Sotalol HCl 80 MG TAB PO SCH ×2 (09:03→21:10)
[2020-11-04] MEDS: Polyethylene Glycol 3350 17 GM Packet PO SCH (09:04)
[2020-11-04] MEDS: Apixaban 5 MG TAB PO SCH ×2 (09:04→21:11)
[2020-11-04] MEDS: Multivit, Therapeutic 1 TAB PO SCH (09:04)
[2020-11-04] MEDS: Magnesium Oxide 400 MG TAB PO SCH (11:29)
[2020-11-04] MEDS: Spironolactone 25 MG TAB PO SCH (11:29)
[2020-11-04] MEDS: Melatonin 3 MG TAB PO SCH (21:11)
[2020-11-05] MEDS: Acetaminophen 500 MG TAB PO SCH ×3 (04:46→16:12)
[2020-11-05] MEDS: traMADol HCl 50 MG TAB PO PRN ×3 (06:28→21:51)
[2020-11-05] MEDS: Apixaban 5 MG TAB PO SCH ×2 (08:53→20:02)
[2020-11-05] MEDS: Aspirin 81 mg Enteric Coated Tablet PO SCH (08:54)
[2020-11-05] MEDS: Furosemide 40 MG TAB PO SCH (08:54)
[2020-11-05] MEDS: Thiamine 100 MG TAB PO SCH (08:54)
[2020-11-05] MEDS: Potassium Chloride 10 MEQ TAB PO SCH (08:54)
[2020-11-05] MEDS: Multivit, Therapeutic 1 TAB PO SCH (08:54)
[2020-11-05] MEDS: Magnesium Oxide 400 MG TAB PO SCH (08:54)
[2020-11-05] MEDS: Sotalol HCl 80 MG TAB PO SCH ×2 (08:54→20:03)
[2020-11-05] MEDS: Spironolactone 25 MG TAB PO SCH (08:55)
[2020-11-05] MEDS: Folic Acid 1 MG TAB PO SCH (08:55)
[2020-11-05] MEDS: Senokot S 8.6-50 MG TAB PO SCH ×2 (11:16→20:02)
[2020-11-05] MEDS: Polyethylene Glycol 3350 17 GM Packet PO SCH (11:16)
--- NOTE | 2020-11-05 15:46 | PRG ---
DATE OF SERVICE: 11/05/2020 SUBJECTIVE: The patient was seen during morning rounds. He is hospital day #24, status post ground level fall, in which, he sustained an open fracture to his right distal tibia-fibula. External fixator remains in place. The pain is controlled at this time. The patient continues to tolerate a heart healthy diet. The patient has been approved for [facility] for intermediate facility, but the patient continues to refuse due to not wanting to get up his checks. He also mentioned Case Management over the last couple of days that he has a mentally retarded who is at home in their RV. It was also offered to have his possibly placed at [facility] temporarily. Also, the patient still refuses as he states that he has to have the money to pay for his RV. The patient states that he has ordered a lift chair and should arrive the middle of next week. The patient feels like he will be safe to go home with his lift chair and that he can use the bedside commode. OBJECTIVE: VITAL SIGNS: Temperature 98.1, pulse 64, respirations 12, SpO2 of 97% on room air, blood pressure 125/75. GENERAL: Awake, alert, and oriented, in no distress. RESPIRATORY: Good inspiratory and expiratory effort, respirations are even and nonlabored. EXTREMITIES: Moves all extremities, neurovascularly intact x4, external fixator in place in the right lower extremity, pin sites are clean, dry, and intact. NEUROLOGIC: No focal deficits. LABORATORY DATA AND DIAGNOSTICS: There is nothing new to review today. ASSESSMENT: 1. Status post ground level fall, hospital day #24. 2. Status post external fixator placement for his right distal tib-fib fracture. 3. History of chronic obstructive pulmonary disease, congestive heart failure, pulmonary hypertension, morbid obesity, hyponatremia, atrial fibrillation and atrial flutter, alcohol abuse, and obstructive sleep apnea. PLAN: Continue supportive care and pain management. Continue to increase and encourage physical and occupational therapy. We will have PT work with the patient on how he is going to get from the lift chair to the bedside commode safely. This needs to be accomplished before the patient is discharged home as he has no one will be able to assist him. Continue chemical VTE prophylaxis with Eliquis and aspirin. Continue BiPAP at night for sleep apnea. Continue to have Case Management and administration assist with Trauma Team getting the patient discharged at a safe location. Job ID: [id number] [facility]
[2020-11-05] MEDS: Melatonin 3 MG TAB PO SCH (21:52)
[2020-11-06] MEDS: Acetaminophen 500 MG TAB PO SCH ×5 (04:31→21:22)
[2020-11-06] MEDS: traMADol HCl 50 MG TAB PO PRN ×3 (06:10→20:29)
[2020-11-06] MEDS: Folic Acid 1 MG TAB PO SCH (08:31)
[2020-11-06] MEDS: Magnesium Oxide 400 MG TAB PO SCH (08:31)
[2020-11-06] MEDS: Apixaban 5 MG TAB PO SCH ×2 (08:31→20:28)
[2020-11-06] MEDS: Sotalol HCl 80 MG TAB PO SCH ×2 (08:31→20:27)
[2020-11-06] MEDS: Furosemide 40 MG TAB PO SCH (08:31)
[2020-11-06] MEDS: Spironolactone 25 MG TAB PO SCH (08:31)
[2020-11-06] MEDS: Aspirin 81 mg Enteric Coated Tablet PO SCH (08:31)
[2020-11-06] MEDS: Multivit, Therapeutic 1 TAB PO SCH (08:31)
[2020-11-06] MEDS: Thiamine 100 MG TAB PO SCH (08:31)
[2020-11-06] MEDS: Potassium Chloride 10 MEQ TAB PO SCH (08:31)
[2020-11-06] MEDS: Senokot S 8.6-50 MG TAB PO SCH ×2 (08:35→20:28)
[2020-11-06] MEDS: Polyethylene Glycol 3350 17 GM Packet PO SCH (08:38)
[2020-11-06] MEDS: Melatonin 3 MG TAB PO SCH (20:28)
[2020-11-07] MEDS: Acetaminophen 500 MG TAB PO SCH ×5 (05:15→22:28)
[2020-11-07] MEDS: traMADol HCl 50 MG TAB PO PRN ×3 (06:40→20:21)
[2020-11-07] MEDS: Polyethylene Glycol 3350 17 GM Packet PO SCH (09:14)
[2020-11-07] MEDS: Senokot S 8.6-50 MG TAB PO SCH ×2 (09:15→20:20)
[2020-11-07] MEDS: Magnesium Oxide 400 MG TAB PO SCH (09:15)
[2020-11-07] MEDS: Aspirin 81 mg Enteric Coated Tablet PO SCH (09:16)
[2020-11-07] MEDS: Multivit, Therapeutic 1 TAB PO SCH (09:16)
[2020-11-07] MEDS: Spironolactone 25 MG TAB PO SCH (09:17)
[2020-11-07] MEDS: Sotalol HCl 80 MG TAB PO SCH ×2 (09:17→20:20)
[2020-11-07] MEDS: Folic Acid 1 MG TAB PO SCH (09:17)
[2020-11-07] MEDS: Apixaban 5 MG TAB PO SCH ×2 (09:17→20:21)
[2020-11-07] MEDS: Potassium Chloride 10 MEQ TAB PO SCH (09:17)
[2020-11-07] MEDS: Thiamine 100 MG TAB PO SCH (09:17)
[2020-11-07] MEDS: Furosemide 40 MG TAB PO SCH (09:18)
[2020-11-07] MEDS: Melatonin 3 MG TAB PO SCH (20:21)
[2020-11-08] MEDS: Acetaminophen 500 MG TAB PO SCH ×3 (05:12→16:31)
[2020-11-08] MEDS: traMADol HCl 50 MG TAB PO PRN ×3 (05:45→16:31)
--- NOTE | 2020-11-08 06:20 | PRG ---
DATE OF SERVICE: 11/07/2020 SUBJECTIVE: This is a 50-year-old male, hospital day #26, status post ground level fall and subsequent open fracture to the right distal tibia-fibula. External fixator remains in place. The patient has been stable for discharge, but is currently still here due to a complex social situation. OBJECTIVE: VITAL SIGNS: Blood pressure 108/60, pulse 80, temperature 98.1, respiratory rate 18, oxygen saturation 98% on room air. GENERAL: Awake, alert, and oriented, in no distress. RESPIRATORY: Nonlabored breathing, good inspiratory and expiratory effort. EXTREMITIES: Moves all extremities, external fixator on right lower extremity. NEUROLOGIC: No focal deficits. LABORATORY DATA: No new labs. ASSESSMENT: 1. Status post ground level fall, hospital day #26. 2. Status post external fixator placement secondary to right distal tibia-fibula fracture. 3. History of chronic obstructive pulmonary disease, congestive heart failure, pulmonary hypertension, morbid obesity, hyponatremia, atrial fibrillation and flutter, alcohol abuse, and obstructive sleep apnea. PLAN: The patient was seen and evaluated with Dr. Rice on morning rounds. Continue supportive care and pain management. The biggest part of the plan is trying to figure out placement. The patient continues to refuse to go to jail due to the cost. He says he has a Hung lift ordered for his trailer that he lives in and it should come in later this week. He would like to know if he can stay in the hospital until that comes in and then he feels he would be safe to go home. This still is a concern due to the fact that he does not have a wheelchair nor anyone at home to help him get from the lift to the bedside commode. We appreciate Case Management's work on this situation and we will continue to work with Administration to see if we can find a solution that is safe for the patient. Job ID: [id number]
[2020-11-08] MEDS: Sotalol HCl 80 MG TAB PO SCH (08:33)
[2020-11-08] MEDS: Senokot S 8.6-50 MG TAB PO SCH (08:34)
[2020-11-08] MEDS: Multivit, Therapeutic 1 TAB PO SCH (08:34)
[2020-11-08] MEDS: Thiamine 100 MG TAB PO SCH (08:34)
[2020-11-08] MEDS: Apixaban 5 MG TAB PO SCH (08:35)
[2020-11-08] MEDS: Furosemide 40 MG TAB PO SCH (08:35)
[2020-11-08] MEDS: Magnesium Oxide 400 MG TAB PO SCH (08:35)
[2020-11-08] MEDS: Aspirin 81 mg Enteric Coated Tablet PO SCH (08:35)
[2020-11-08] MEDS: Potassium Chloride 10 MEQ TAB PO SCH (08:35)
[2020-11-08] MEDS: Folic Acid 1 MG TAB PO SCH (08:35)
[2020-11-08] MEDS: Polyethylene Glycol 3350 17 GM Packet PO SCH (08:38)
[2020-11-08] MEDS: Spironolactone 25 MG TAB PO SCH (08:42)
[2020-11-08 12:33] VITALS: TEMP 98
[2020-11-08 17:14] VITALS: BP 117/71
--- NOTE | 2020-11-10 04:25 | PQF ---
CLINICAL DOCUMENTATION CLARIFICATION FORM: Dear : Louie Rice Date / Time: 11/10/20423 Please exercise your independent, professional judgment in responding to the clarification form. Clinical indicators are provided on the bottom of this form for your review Please check appropriate box(s): [ ] Hypovolemic Shock [ ] Traumatic Shock [ X ] Shock Unspecified [ ] Other diagnosis, please specify [ ] Unable to determine In addition, please specify: Present on Admission (POA): [ x ] Yes [ ] No [ ] Unable to determine Physician Signature: Date/Time: For continuity of documentation, please document condition throughout progress notes and discharge summary. Thank You To be completed by CDI/Coding staff for physician review: Present Clinical Indicators - Signs / Symptoms / Labs Results and Location in Medical Record [x] BP 93/87; 106/67; 101/62, Pulse 87; 90, Resp 20; 19, Temp 97.8; 97.5 Vital signs 10/12 [x] s/p Fall H&P p1 10/12 Dawson PA-C [x] CHRIS H&P p1 10/12 Dawson PA-C [x] Elevated alcohol level H&P p3 10/12 Dawson PA-C [x] Hypotension PN p1 10/13 Dr Negrete Present Risk Factors Results and Location in Medical Record [x] Morbid obesity H&P p1 10/12 Dawson PA-C [x] CHF H&P p1 10/12 Dawson PA-C [x] HTN H&P p1 10/12 Dawson PA-C [x] Open right tib-fib fx H&P p3 10/12 Eunice PA-C [x] Pulmonary HTN PN p1 10/13 Dr Negrete [x] Smoker ED Notes 10/12 [x] CKD Consult 10/13 Present Treatments Results and Location in Medical Record [x] IV Vasopressin 20 units DEC 30 [x] IVF NS 1L DEC 30 [x] IV Levophed 4 mg DEC 30 CDS/Engineering Vice President Signature: Kajal Maldonado Phone #: [phone] Date/Time: 11/10/20423 This is a permanent part of the Medical Record [facility]
== END 2020-11-08 18:11 | DRG 492 ==
LOC: ERS 03:13 → ERHOLD 04:03 → IMCU/EMU 11:58 → CCU 17:44 → SURG A 10-14 11:42
PROVIDERS: ADMIT Emergency Medicine; ATTEND Emergency Medicine
PROC: 0QSJ04Z Reposition Right Fibula with Internal Fixation Device, Open Approach (ICD-10-PCS; principal; 2020-10-12)
PROC: 0QSG04Z Reposition Right Tibia with Internal Fixation Device, Open Approach (ICD-10-PCS; 2020-10-12)
PROC: 0QSJXZZ Reposition Right Fibula, External Approach (ICD-10-PCS; 2020-10-12)
PROC: 0QSGXZZ Reposition Right Tibia, External Approach (ICD-10-PCS; 2020-10-12)
PROC: 5A09357 Assistance with Respiratory Ventilation, Less than 24 Consecutive Hours, Continuous Positive Airway Pressure (ICD-10-PCS; 2020-10-12)
PROC: 3E033XZ Introduction of Vasopressor into Peripheral Vein, Percutaneous Approach (ICD-10-PCS; 2020-10-12)
DX: S82.851C Displaced trimalleolar fracture of right lower leg, initial encounter for open fracture type IIIA, IIIB, or IIIC (principal); I50.33 Acute on chronic diastolic (congestive) heart failure; Z68.43 Body mass index [BMI] 50.0-59.9, adult; Z20.822 Contact with and (suspected) exposure to COVID-19; Z23 Encounter for immunization; E87.1 Hypo-osmolality and hyponatremia; N17.9 Acute kidney failure, unspecified; E66.2 Morbid (severe) obesity with alveolar hypoventilation; E27.40 Unspecified adrenocortical insufficiency; R57.9 Shock, unspecified; J44.9 Chronic obstructive pulmonary disease, unspecified; E78.5 Hyperlipidemia, unspecified; F17.210 Nicotine dependence, cigarettes, uncomplicated; I48.0 Paroxysmal atrial fibrillation; I11.0 Hypertensive heart disease with heart failure; F10.10 Alcohol abuse, uncomplicated; Y90.8 Blood alcohol level of 240 mg/100 ml or more; W18.30XA Fall on same level, unspecified, initial encounter; I27.20 Pulmonary hypertension, unspecified; J98.4 Other disorders of lung; Z90.49 Acquired absence of other specified parts of digestive tract; Z79.899 Other long term (current) drug therapy; Z79.82 Long term (current) use of aspirin; Z79.01 Long term (current) use of anticoagulants; Z88.8 Allergy status to other drugs, medicaments and biological substances
CPT/HCPCS: 27840; 36415; 36416; 71045; 76000; 80048; 80053; 80170; 80307; 82533; 82805; 83735; 83880; 84100; 85007; 85025; 85027; 85610; 85730; 86850; 86900; 86901; 90471; 90662; 90670; 90715; 93005; 94002; 94640; 94660; 94760; 96361; 96365; 96367; 96375; A4306; C1713; G0008; G0009; G0390; J0690; J1265; J1580; J1720; J2250; J2260; J2270; J2370; J2405; J2704; J2795; J3010; J3370; J3475; J3490; J7050; J7620; P9045; U0002

== ENCOUNTER 2020-12-16 06:02 | Day surgery (SDC) | payer OTHER ==
[2020-12-15 14:45] VITALS: BMI 53.1
[2020-12-16] MEDS ORDERED: Fentanyl 100 MCG/2 ML VIAL ONE (06:30)
[2020-12-16] MEDS ORDERED: Ketamine 50 MG/ML (10ML VIAL) ONE (07:28)
[2020-12-16] MEDS ORDERED: SUGAMMADEX SODIUM 200 MG/2 ML VIAL ONE (08:22)
[2020-12-16] MEDS ORDERED: Bupivacaine PF 0.5% 30 ML VIAL ONE (08:32)
[2020-12-16] MEDS ORDERED: HYDROcodone/Acetaminophen 5/325 mg Tablet ONE (09:48)
[2020-12-16] MEDS ORDERED: Ondansetron PF 4 MG/2 ML Vial ONE (10:01)
[2020-12-16] MEDS ORDERED: ePHEDrine 50 MG/ML VIAL ONE (10:01)
[2020-12-16] MEDS ORDERED: Rocuronium Bromide 10 MG/ML (10ML VIAL) ONE (10:01)
[2020-12-16] MEDS ORDERED: Dexamethasone 20 MG/5 ML VIAL ONE (10:01)
[2020-12-16] MEDS ORDERED: Succinylcholine 200 MG/10 ml SYRINGE FS ONE (10:01)
[2020-12-16] MEDS ORDERED: Lidocaine 1% PF 5 ML VIAL ONE (10:01)
[2020-12-16] MEDS ORDERED: Ketorolac Tromethamine 30 MG/ML VIAL ONE (10:01)
[2020-12-16] MEDS ORDERED: PROPOFOL 200 MG/20 ML VIAL ONE (10:01)
--- NOTE | 2020-12-16 15:01 | RAD ---
3 intraoperative images of the right ankle: 12/16/2020 COMPARISON: 11/21/2020 HISTORY: Fracture, hardware removal FINDINGS: Stable displaced obliquely oriented distal fibular fracture. Osseous detail is limited on t his study with a stable obliquely oriented medial malleolus fracture noted. Previously noted hardware has been removed. Probable posterior malleolar fracture noted. IMPRESSION: Findings suspicious for trimalleolar fracture. Interval hardware removal.
--- NOTE | 2020-12-17 14:08 | OP ---
DATE OF PROCEDURE: 12/16/2020 PREOPERATIVE DIAGNOSIS: Right ankle bimalleolar fracture dislocation, status post pinning and application of Delta frame external fixator. POSTOPERATIVE DIAGNOSIS: Right ankle bimalleolar fracture dislocation, status post pinning and application of Delta frame external fixator. SURGICAL PROCEDURE: 1. Removal of deep implants from right tibia (K-wire x2). 2. Removal of ankle spanning Delta frame external fixator, right ankle. ANESTHESIA: General. TOURNIQUET TIME: Zero. ESTIMATED BLOOD LOSS: Less than 20 mL. COMPLICATIONS: None. DRAINS: None. SPECIMENS: Explanted K-wires x2, as well as removed external fixator. OUTCOME: Satisfactory. INDICATIONS: The patient is a 50-year-old gentleman with a history of severe cardiopulmonary disease which makes him at very high risk for anesthesia. The patient is status post severe open right ankle injury with fracture dislocation and near circumferential loss of skin and soft tissue almost 2 months ago. The patient was treated with an external fixator due to the condition of the soft tissue envelope. The soft tissue envelope took quite a while for it to really recover and as such, we opted just to continue with the external fixator and some provisional K-wires placed at the time of initial irrigation, debridement, and stabilization. The patient has done a phenomenal job with pin site care and the external fixator pin sites have been free of any infection or erythema or drainage. However, 2 months now, it is felt that it is time to proceed with removal of the external fixator and K-wires. Informed consent has been obtained. I believe all questions answered. DESCRIPTION OF PROCEDURE: The patient was brought to the operating room and a time-out performed followed by induction of general anesthesia. Next, the patient was positioned supine on the OR table and a sterile prep and drape performed after the external fixator and its Steinmann pins were removed. It should be noted that the pin sites were prepped with Betadine before the Steinmann pins removed. Following the sterile prep and drape, the C-arm was used to localize the area of the 2 deep K-wire implants. Following the scar from his prior laceration, the skin was incised and then dissection was carried down bluntly and then with C-arm guidance, the 2 K-wires were identified and able to be removed without difficulty. At this point, the ankle was brought through a range of motion from just beyond neutral to approximately 20 degrees of plantar flexion. The talus seemed to ride comfortably within the mortise. I did not see any movement of the medial malleolus that had been fractured. Did not see gross movement of the lateral malleolus, although this still shows some displacement above the level of the ankle mortise. After all hardware had been removed, the incision from the K-wire removal was irrigated with bulb syringe, then closed in layers with 0 Vicryl deep followed by 2-0 Vicryl and then nylon for the skin. The Steinmann pin sites were allowed to remain open. A Xeroform gauze, Webril and a Trilaminar fiberglass splint was then applied to the ankle and then patient was transferred to recovery room in stable condition. There were no complications. The patient tolerated the procedure well. Job ID: [id number]
== END 2020-12-16 11:48 | disposition home or self-care (01) ==
LOC: SDC 06:02
PROVIDERS: ATTEND Orthopaedic Surgery
PROC: 0YP9XYZ Removal of Other Device from Right Lower Extremity, External Approach (ICD-10-PCS; principal; 2020-12-16)
DX: Z47.2 Encounter for removal of internal fixation device (principal); I11.0 Hypertensive heart disease with heart failure; I50.32 Chronic diastolic (congestive) heart failure; N17.9 Acute kidney failure, unspecified; I48.20 Chronic atrial fibrillation, unspecified; Z79.899 Other long term (current) drug therapy; Z87.891 Personal history of nicotine dependence; Z88.8 Allergy status to other drugs, medicaments and biological substances
CPT/HCPCS: 76000; J0690; J1100; J1885; J2405; J2704; J3010; J3490; S0020

== ENCOUNTER 2021-01-24 00:37 | Inpatient (IN) | payer OTHER ==
[2021-01-24 01:18] LABS: #Basophils 0.1 thou/uL (0.0-0.2); #Eosinphils 0.5 thou/uL (0.0-0.7); #Monocytes 0.6 thou/uL (0.11-0.59); #Neutrophils 6.8 thou/uL (1.40-6.50); %Basophils 1.1 % (0.0-1.0); %Eosinophils 3.9 % (0.0-10.0); %Lymphocytes 38.4 % (21.0-51.0); %Monocytes 4.9 % (0.0-10.0); %Neutrophils 51.7 % (42.0-75.0); Hemoglobin 10.4 g/dL (14.0-18.0); Mean Corpuscular HGB CONC 32.9 g/dL (32.0-36.0); Mean Corpuscular Hemoglobin 24.6 pg (27.0-31.0); Mean Corpuscular Volume 74.6 fL (78.0-98.0); Platelet Count 270 thou/uL (130-400); Red Blood Cell (RBC) Count 4.23 mill/uL (4.70-6.10); White Blood Cell (WBC) Count 13.1 thou/uL (4.8-10.8)
[2021-01-24 01:34] LABS: ALT (SGPT) 13 U/L (8-55); AST (SGOT) 18 U/L (5-34); Albumin 3.6 g/dL (3.5-5.0); Alkaline Phosphatase 122 U/L (40-110); Anion Gap 19 mmol/L (10-20); BUN (Urea Nitrogen) 25 mg/dL (8.9-20.6); Bilirubin, Total 0.5 mg/dL (0.2-1.2); Calc. Creatinine Clearance 0 mL/min (70-130); Calcium 8.4 mg/dL (7.8-10.44); Carbon Dioxide 26 mmol/L (22-29); Chloride 85 mmol/L (98-107); Globulin 3.5 g/dL (2.4-3.5); Glucose 92 mg/dL (70-105); Potassium 4.5 mmol/L (3.5-5.1); Protein, Total 7.1 g/dL (6.0-8.3); Sodium 125 mmol/L (136-145)
[2021-01-24 01:48] LABS: Bilirubin Negative (Negative); Blood, Urine Negative (Negative); Clarity Clear (Clear); Glucose, Urine (Dipstick) Normal (Negative); Ketone, Urine Negative (Negative); Leukocyte Negative Leu/uL (Negative); Nitrite Negative (Negative); Protein, Urine (Dipstick) Negative (Neg-Trace); Specific Gravity, Urine 1.013 (1.002-1.036); Urobilinogen Normal mg/dL (Less than 2)
[2021-01-24 05:57] VITALS: BMI 62.6
[2021-01-24] MEDS: Acetaminophen 325 MG TAB PO PRN (05:58)
[2021-01-24 06:46] LABS: Anion Gap 17 mmol/L (10-20); BUN (Urea Nitrogen) 25 mg/dL (8.9-20.6); Calc. Creatinine Clearance 190 mL/min (70-130); Calcium 8.1 mg/dL (7.8-10.44); Carbon Dioxide 25 mmol/L (22-29); Chloride 87 mmol/L (98-107); Glucose 81 mg/dL (70-105); Magnesium 2.1 mg/dL (1.6-2.6); Phosphorus 4.5 mg/dL (2.3-4.7); Potassium 4.4 mmol/L (3.5-5.1); Sodium 125 mmol/L (136-145)
[2021-01-24] MEDS: Sotalol HCl 80 MG TAB PO SCH ×2 (08:30→20:36)
[2021-01-24] MEDS: Folic Acid 1 MG TAB PO SCH (08:30)
[2021-01-24] MEDS: Aspirin 81 mg Enteric Coated Tablet PO SCH (08:30)
[2021-01-24] MEDS: Apixaban 5 MG TAB PO SCH ×2 (08:30→20:37)
[2021-01-24] MEDS: Thiamine 100 MG TAB PO SCH (08:30)
[2021-01-24] MEDS: Magnesium Oxide 400 MG TAB PO SCH (08:30)
[2021-01-24] MEDS ORDERED: VITAMIN B12 2500 MCG PO SCH (09:00)
[2021-01-24] MEDS ORDERED: Furosemide 40 MG/4 ML VIAL SLOW IVP SCH (10:15)
[2021-01-24 12:43] LABS: SARS-CoV-2 PCR by NAA Not Detected (NotDetected)
[2021-01-24] MEDS: traMADol HCl 50 MG TAB PO PRN (20:35)
[2021-01-24] MEDS: Melatonin 3 MG TAB PO SCH (20:36)
[2021-01-25 06:10] LABS: Band 2 % (5-11); Hemoglobin 9.6 g/dL (14.0-18.0); Hypochromia SLIGHT = 6-15 cells (100X) (0-5/hpf); Lymphocytes 28 % (21-51); MDiff Complete? YES; Mean Corpuscular HGB CONC 31.6 g/dL (32.0-36.0); Mean Corpuscular Hemoglobin 23.6 pg (27.0-31.0); Mean Corpuscular Volume 74.5 fL (78.0-98.0); Mean Platelet Volume 8.5 fL (7.4-10.4); Microcytosis SLIGHT = 6-15 cells (100X) (0-5/hpf); Monocytes 15 % (0-10); Neutrophil 54 % (42-75); Platelet Count 236 thou/uL (130-400); Platelet Morphology Comment Appears Adequate; RBC Distribution Width 13.2 % (11.5-14.5); Reactive Lymphocytes 1 % (0-10); Red Blood Cell (RBC) Count 4.08 mill/uL (4.70-6.10); White Blood Cell (WBC) Count 7.3 thou/uL (4.8-10.8)
[2021-01-25 06:21] LABS: ALT (SGPT) 10 U/L (8-55); AST (SGOT) 18 U/L (5-34); Albumin 3.6 g/dL (3.5-5.0); Alkaline Phosphatase 118 U/L (40-110); Anion Gap 14 mmol/L (10-20); BUN (Urea Nitrogen) 17 mg/dL (8.9-20.6); Bilirubin, Total 0.9 mg/dL (0.2-1.2); Calc. Creatinine Clearance 291 mL/min (70-130); Calcium 8.9 mg/dL (7.8-10.44); Carbon Dioxide 33 mmol/L (22-29); Cardiac Risk 2.6 (Less than 4.5); Chloride 93 mmol/L (98-107); Cholesterol 185 mg/dl (< 200 Desired); Globulin 3.2 g/dL (2.4-3.5); Glucose 94 mg/dL (70-105); HDL Cholesterol 71 mg/dL (>60 Neg Risk); LDL Cholesterol, Calculated 103 mg/dL; Potassium 4.8 mmol/L (3.5-5.1); Protein, Total 6.8 g/dL (6.0-8.3); Sodium 135 mmol/L (136-145); Triglycerides 55 mg/dL (Less than 150)
[2021-01-25] MEDS ORDERED: Furosemide 40 MG/4 ML VIAL SLOW IVP SCH (07:45)
[2021-01-25] MEDS: Sotalol HCl 80 MG TAB PO SCH ×2 (08:21→20:46)
[2021-01-25] MEDS: Apixaban 5 MG TAB PO SCH ×2 (08:22→20:45)
[2021-01-25] MEDS: Folic Acid 1 MG TAB PO SCH (08:22)
[2021-01-25] MEDS: Spironolactone 25 MG TAB PO SCH (08:22)
[2021-01-25] MEDS: Magnesium Oxide 400 MG TAB PO SCH (08:22)
[2021-01-25] MEDS: Thiamine 100 MG TAB PO SCH (08:23)
[2021-01-25] MEDS: Potassium Chloride 10 MEQ TAB PO SCH (08:23)
[2021-01-25] MEDS: Aspirin 81 mg Enteric Coated Tablet PO SCH (08:23)
[2021-01-25] MEDS: traMADol HCl 50 MG TAB PO PRN ×2 (13:12→20:45)
[2021-01-25] MEDS: Melatonin 3 MG TAB PO SCH (20:44)
[2021-01-26] MEDS: traMADol HCl 50 MG TAB PO PRN ×3 (05:22→20:20)
[2021-01-26] MEDS: Magnesium Oxide 400 MG TAB PO SCH (08:19)
[2021-01-26] MEDS: Cyanocobalamin (Vitamin B-12) 1,000 MCG TAB PO SCH (08:19)
[2021-01-26] MEDS: Folic Acid 1 MG TAB PO SCH (08:19)
[2021-01-26] MEDS: Apixaban 5 MG TAB PO SCH ×2 (08:20→20:08)
[2021-01-26] MEDS: Thiamine 100 MG TAB PO SCH (08:20)
[2021-01-26] MEDS: Sotalol HCl 80 MG TAB PO SCH ×2 (08:20→20:13)
[2021-01-26] MEDS: Spironolactone 25 MG TAB PO SCH (08:20)
[2021-01-26] MEDS: Aspirin 81 mg Enteric Coated Tablet PO SCH (08:20)
[2021-01-26] MEDS: Potassium Chloride 10 MEQ TAB PO SCH (08:20)
[2021-01-26 10:00] LABS: #Eosinphils 0.1 thou/uL (0.0-0.7); #Monocytes 0.4 thou/uL (0.11-0.59); #Neutrophils 3.1 thou/uL (1.40-6.50); %Basophils 0.1 % (0.0-1.0); %Eosinophils 2.4 % (0.0-10.0); %Lymphocytes 35.4 % (21.0-51.0); %Monocytes 7.6 % (0.0-10.0); %Neutrophils 54.6 % (42.0-75.0); Hemoglobin 9.3 g/dL (14.0-18.0); Mean Corpuscular HGB CONC 32.1 g/dL (32.0-36.0); Mean Corpuscular Hemoglobin 24.6 pg (27.0-31.0); Mean Corpuscular Volume 76.4 fL (78.0-98.0); Mean Platelet Volume 8.3 fL (7.4-10.4); Platelet Count 173 thou/uL (130-400); RBC Distribution Width 13.4 % (11.5-14.5); White Blood Cell (WBC) Count 5.6 thou/uL (4.8-10.8)
[2021-01-26 10:20] LABS: Anion Gap 15 mmol/L (10-20); BUN (Urea Nitrogen) 10 mg/dL (8.9-20.6); Calc. Creatinine Clearance 295 mL/min (70-130); Calcium 9.1 mg/dL (7.8-10.44); Carbon Dioxide 31 mmol/L (22-29); Chloride 91 mmol/L (98-107); Glucose 118 mg/dL (70-105); Potassium 4.2 mmol/L (3.5-5.1); Sodium 133 mmol/L (136-145)
[2021-01-26] MEDS ORDERED: Furosemide 40 MG/4 ML VIAL SLOW IVP SCH (10:45)
[2021-01-26] MEDS: Melatonin 3 MG TAB PO SCH (20:13)
[2021-01-27 06:35] LABS: #Eosinphils 0.2 thou/uL (0.0-0.7); #Lymphocytes 2.1 thou/uL (1.20-3.40); #Monocytes 0.5 thou/uL (0.11-0.59); #Neutrophils 3.6 thou/uL (1.40-6.50); %Basophils 0.3 % (0.0-1.0); %Eosinophils 3.4 % (0.0-10.0); %Lymphocytes 33.1 % (21.0-51.0); %Monocytes 8.1 % (0.0-10.0); %Neutrophils 55.2 % (42.0-75.0); Hemoglobin 9.7 g/dL (14.0-18.0); Mean Corpuscular HGB CONC 31.4 g/dL (32.0-36.0); Mean Corpuscular Hemoglobin 24.2 pg (27.0-31.0); Mean Corpuscular Volume 76.8 fL (78.0-98.0); Mean Platelet Volume 8.1 fL (7.4-10.4); Platelet Count 170 thou/uL (130-400); RBC Distribution Width 13.4 % (11.5-14.5); Red Blood Cell (RBC) Count 4.03 mill/uL (4.70-6.10); White Blood Cell (WBC) Count 6.4 thou/uL (4.8-10.8)
[2021-01-27 06:38] LABS: Hemoglobin 9.7 g/dL (14.0-18.0); Platelet Count 167 thou/uL (130-400)
[2021-01-27 06:58] LABS: Anion Gap 14 mmol/L (10-20); BUN (Urea Nitrogen) 10 mg/dL (8.9-20.6); Calc. Creatinine Clearance 299 mL/min (70-130); Calcium 9.2 mg/dL (7.8-10.44); Carbon Dioxide 33 mmol/L (22-29); Chloride 91 mmol/L (98-107); Glucose 96 mg/dL (70-105); Potassium 4.2 mmol/L (3.5-5.1); Sodium 134 mmol/L (136-145)
[2021-01-27] MEDS: traMADol HCl 50 MG TAB PO PRN ×3 (08:58→21:15)
[2021-01-27] MEDS: Acetaminophen 325 MG TAB PO PRN ×2 (08:59→14:56)
[2021-01-27] MEDS: Aspirin 81 mg Enteric Coated Tablet PO SCH (09:00)
[2021-01-27] MEDS: Magnesium Oxide 400 MG TAB PO SCH (09:00)
[2021-01-27] MEDS ORDERED: Furosemide 40 MG TAB PO SCH ×2 (09:00)
[2021-01-27] MEDS: Cyanocobalamin (Vitamin B-12) 1,000 MCG TAB PO SCH (09:01)
[2021-01-27] MEDS: Ferrous Sulfate 325 MG TAB PO SCH (09:01)
[2021-01-27] MEDS: Apixaban 5 MG TAB PO SCH ×2 (09:01→20:37)
[2021-01-27] MEDS: Potassium Chloride 10 MEQ TAB PO SCH (09:02)
[2021-01-27] MEDS: Thiamine 100 MG TAB PO SCH (09:02)
[2021-01-27] MEDS: Spironolactone 25 MG TAB PO SCH (09:02)
[2021-01-27] MEDS: Folic Acid 1 MG TAB PO SCH (09:03)
[2021-01-27] MEDS: Sotalol HCl 80 MG TAB PO SCH ×2 (09:04→20:39)
[2021-01-27] MEDS: Furosemide 80 MG TAB PO SCH (09:14)
[2021-01-27] MEDS ORDERED: Ibuprofen 600 MG TAB PO SCH (13:15)
[2021-01-27] MEDS: Melatonin 3 MG TAB PO SCH (20:37)
[2021-01-28 05:45] LABS: #Eosinphils 0.2 thou/uL (0.0-0.7); #Lymphocytes 2.2 thou/uL (1.20-3.40); #Monocytes 0.6 thou/uL (0.11-0.59); #Neutrophils 3.3 thou/uL (1.40-6.50); %Basophils 0.2 % (0.0-1.0); %Eosinophils 3.8 % (0.0-10.0); %Lymphocytes 34.5 % (21.0-51.0); %Monocytes 9.9 % (0.0-10.0); %Neutrophils 51.6 % (42.0-75.0); Hemoglobin 9.1 g/dL (14.0-18.0); Mean Corpuscular HGB CONC 31.4 g/dL (32.0-36.0); Mean Corpuscular Hemoglobin 24.3 pg (27.0-31.0); Mean Corpuscular Volume 77.3 fL (78.0-98.0); Mean Platelet Volume 8.3 fL (7.4-10.4); Platelet Count 174 thou/uL (130-400); RBC Distribution Width 13.7 % (11.5-14.5); Red Blood Cell (RBC) Count 3.74 mill/uL (4.70-6.10); White Blood Cell (WBC) Count 6.4 thou/uL (4.8-10.8)
[2021-01-28 06:02] LABS: Anion Gap 13 mmol/L (10-20); BUN (Urea Nitrogen) 14 mg/dL (8.9-20.6); Calc. Creatinine Clearance 281 mL/min (70-130); Calcium 8.9 mg/dL (7.8-10.44); Carbon Dioxide 35 mmol/L (22-29); Chloride 90 mmol/L (98-107); Glucose 97 mg/dL (70-105); Potassium 4.3 mmol/L (3.5-5.1); Sodium 134 mmol/L (136-145)
[2021-01-28] MEDS: Magnesium Oxide 400 MG TAB PO SCH (09:06)
[2021-01-28] MEDS: Sotalol HCl 80 MG TAB PO SCH ×2 (09:06→22:30)
[2021-01-28] MEDS: Ferrous Sulfate 325 MG TAB PO SCH (09:07)
[2021-01-28] MEDS: Furosemide 80 MG TAB PO SCH (09:07)
[2021-01-28] MEDS: Cyanocobalamin (Vitamin B-12) 1,000 MCG TAB PO SCH (09:07)
[2021-01-28] MEDS: Folic Acid 1 MG TAB PO SCH (09:07)
[2021-01-28] MEDS: Thiamine 100 MG TAB PO SCH (09:07)
[2021-01-28] MEDS: Potassium Chloride 10 MEQ TAB PO SCH (09:08)
[2021-01-28] MEDS: Spironolactone 25 MG TAB PO SCH (09:08)
[2021-01-28] MEDS: Aspirin 81 mg Enteric Coated Tablet PO SCH (09:08)
[2021-01-28] MEDS: Apixaban 5 MG TAB PO SCH ×2 (09:08→22:30)
[2021-01-28] MEDS: traMADol HCl 50 MG TAB PO PRN ×3 (10:25→22:33)
[2021-01-28] MEDS: Melatonin 3 MG TAB PO SCH (22:29)
[2021-01-29 06:20] LABS: Anion Gap 12 mmol/L (10-20); BUN (Urea Nitrogen) 18 mg/dL (8.9-20.6); Calc. Creatinine Clearance 239 mL/min (70-130); Calcium 8.8 mg/dL (7.8-10.44); Carbon Dioxide 35 mmol/L (22-29); Chloride 91 mmol/L (98-107); Glucose 94 mg/dL (70-105); Potassium 4.5 mmol/L (3.5-5.1); Sodium 133 mmol/L (136-145)
[2021-01-29] MEDS: Aspirin 81 mg Enteric Coated Tablet PO SCH (08:22)
[2021-01-29] MEDS: Folic Acid 1 MG TAB PO SCH (08:22)
[2021-01-29] MEDS: Furosemide 80 MG TAB PO SCH (08:22)
[2021-01-29] MEDS: Sotalol HCl 80 MG TAB PO SCH ×2 (08:22→21:52)
[2021-01-29] MEDS: Cyanocobalamin (Vitamin B-12) 1,000 MCG TAB PO SCH (08:22)
[2021-01-29] MEDS: Spironolactone 25 MG TAB PO SCH (08:23)
[2021-01-29] MEDS: Ferrous Sulfate 325 MG TAB PO SCH (08:23)
[2021-01-29] MEDS: Apixaban 5 MG TAB PO SCH ×2 (08:23→21:52)
[2021-01-29] MEDS: Potassium Chloride 10 MEQ TAB PO SCH (08:23)
[2021-01-29] MEDS: Thiamine 100 MG TAB PO SCH (08:23)
[2021-01-29] MEDS: traMADol HCl 50 MG TAB PO PRN ×2 (08:24→16:41)
[2021-01-29] MEDS: Magnesium Oxide 400 MG TAB PO SCH (08:24)
[2021-01-29] MEDS: Melatonin 3 MG TAB PO SCH (21:52)
[2021-01-30] MEDS: traMADol HCl 50 MG TAB PO PRN ×3 (00:24→14:39)
[2021-01-30 07:23] LABS: #Eosinphils 0.3 thou/uL (0.0-0.7); #Lymphocytes 3.1 thou/uL (1.20-3.40); #Monocytes 0.8 thou/uL (0.11-0.59); #Neutrophils 3.7 thou/uL (1.40-6.50); %Basophils 0.5 % (0.0-1.0); %Eosinophils 3.5 % (0.0-10.0); %Lymphocytes 39.2 % (21.0-51.0); %Monocytes 10.3 % (0.0-10.0); %Neutrophils 46.4 % (42.0-75.0); Hemoglobin 9.7 g/dL (14.0-18.0); Mean Corpuscular HGB CONC 30.4 g/dL (32.0-36.0); Mean Corpuscular Hemoglobin 23.7 pg (27.0-31.0); Mean Corpuscular Volume 77.8 fL (78.0-98.0); Mean Platelet Volume 8.8 fL (7.4-10.4); Platelet Count 181 thou/uL (130-400); RBC Distribution Width 14.9 % (11.5-14.5); White Blood Cell (WBC) Count 7.9 thou/uL (4.8-10.8)
[2021-01-30 07:41] LABS: Anion Gap 16 mmol/L (10-20); BUN (Urea Nitrogen) 22 mg/dL (8.9-20.6); Calc. Creatinine Clearance 230 mL/min (70-130); Carbon Dioxide 31 mmol/L (22-29); Chloride 93 mmol/L (98-107); Glucose 88 mg/dL (70-105); Potassium 4.6 mmol/L (3.5-5.1); Sodium 135 mmol/L (136-145)
[2021-01-30] MEDS: Cyanocobalamin (Vitamin B-12) 1,000 MCG TAB PO SCH (09:13)
[2021-01-30] MEDS: Aspirin 81 mg Enteric Coated Tablet PO SCH (09:14)
[2021-01-30] MEDS: Ferrous Sulfate 325 MG TAB PO SCH (09:14)
[2021-01-30] MEDS: Magnesium Oxide 400 MG TAB PO SCH (09:14)
[2021-01-30] MEDS: Potassium Chloride 10 MEQ TAB PO SCH (09:15)
[2021-01-30] MEDS: Furosemide 80 MG TAB PO SCH (09:15)
[2021-01-30] MEDS: Folic Acid 1 MG TAB PO SCH (09:15)
[2021-01-30] MEDS: Thiamine 100 MG TAB PO SCH (09:15)
[2021-01-30] MEDS: Apixaban 5 MG TAB PO SCH (09:15)
[2021-01-30] MEDS: Spironolactone 25 MG TAB PO SCH (09:15)
[2021-01-30 11:34] VITALS: BP 101/65; TEMP 98.5
[2021-01-30] MEDS: Sotalol HCl 80 MG TAB PO SCH (12:04)
[2021-01-31] MEDS ORDERED: Polyethylene Glycol 3350 17 GM Packet PO SCH (09:00)
== END 2021-01-30 14:49 | DRG 682 ==
LOC: ERS 00:37 → T4-A 02:03 → OBSVTOIN 01-25 13:13
PROVIDERS: ADMIT Family Medicine; ATTEND Family Medicine
DX: N17.9 Acute kidney failure, unspecified (principal); I50.33 Acute on chronic diastolic (congestive) heart failure; J96.10 Chronic respiratory failure, unspecified whether with hypoxia or hypercapnia; E66.2 Morbid (severe) obesity with alveolar hypoventilation; E87.1 Hypo-osmolality and hyponatremia; Z68.44 Body mass index [BMI] 60.0-69.9, adult; J44.9 Chronic obstructive pulmonary disease, unspecified; F10.10 Alcohol abuse, uncomplicated; I48.91 Unspecified atrial fibrillation; I50.810 Right heart failure, unspecified; E78.5 Hyperlipidemia, unspecified; I11.0 Hypertensive heart disease with heart failure; D50.9 Iron deficiency anemia, unspecified; Z88.8 Allergy status to other drugs, medicaments and biological substances; Z79.01 Long term (current) use of anticoagulants; Z79.82 Long term (current) use of aspirin; Z79.899 Other long term (current) drug therapy; Z90.49 Acquired absence of other specified parts of digestive tract; Z87.891 Personal history of nicotine dependence
CPT/HCPCS: 36415; 80048; 80053; 80061; 81003; 82728; 83735; 83880; 83930; 83935; 84100; 84300; 84443; 85007; 85014; 85018; 85025; 85027; 85049; 85260; 87635; 96374; 96376; G0378; J1940; U0003; U0005

== ENCOUNTER 2021-04-18 23:52 | Inpatient (IN) | payer OTHER ==
[2021-04-19 00:53] LABS: #Basophils 0.1 thou/uL (0.0-0.2); #Eosinphils 0.1 thou/uL (0.0-0.7); #Lymphocytes 3.4 thou/uL (1.20-3.40); #Monocytes 0.5 thou/uL (0.11-0.59); #Neutrophils 5.1 thou/uL (1.40-6.50); %Basophils 0.6 % (0.0-1.0); %Eosinophils 1.1 % (0.0-10.0); %Lymphocytes 37.2 % (21.0-51.0); %Monocytes 5.5 % (0.0-10.0); %Neutrophils 55.6 % (42.0-75.0); Hemoglobin 10.8 g/dL (14.0-18.0); Mean Corpuscular HGB CONC 32.1 g/dL (32.0-36.0); Mean Corpuscular Hemoglobin 24.3 pg (27.0-31.0); Mean Corpuscular Volume 75.8 fL (78.0-98.0); Mean Platelet Volume 8.2 fL (7.4-10.4); Platelet Count 224 thou/uL (130-400); RBC Distribution Width 16.7 % (11.5-14.5); Red Blood Cell (RBC) Count 4.44 mill/uL (4.70-6.10); White Blood Cell (WBC) Count 9.2 thou/uL (4.8-10.8)
[2021-04-19] MEDS ORDERED: Aspirin 325 MG TAB ONE (01:05)
[2021-04-19 01:15] LABS: ALT (SGPT) 43 U/L (8-55); AST (SGOT) 56 U/L (5-34); Albumin 3.8 g/dL (3.5-5.0); Alcohol 259 mg/dL (Less than 10); Alkaline Phosphatase 135 U/L (40-110); Anion Gap 19 mmol/L (10-20); BUN (Urea Nitrogen) 34 mg/dL (8.9-20.6); Bilirubin, Total 0.8 mg/dL (0.2-1.2); Calc. Creatinine Clearance 0 mL/min (70-130); Calcium 8.6 mg/dL (7.8-10.44); Carbon Dioxide 28 mmol/L (22-29); Chloride 76 mmol/L (98-107); Globulin 3.5 g/dL (2.4-3.5); Glucose 86 mg/dL (70-105); Lipase 38 U/L (8-78); Potassium 5.1 mmol/L (3.5-5.1); Protein, Total 7.3 g/dL (6.0-8.3)
[2021-04-19 01:22] LABS: Sodium 118 mmol/L (136-145)
[2021-04-19 01:44] LABS: Amphetamine Not Detected (NotDetected); Barbiturates Screen Not Detected (NotDetected); Benzodiazepine Screen Not Detected (NotDetected); Cocaine Metabolite Screen Not Detected (NotDetected); Medtox Control Line Valid? VALID (VALID); Medtox Reader # READER 4; Methadone Not Detected (NotDetected); Methamphetamine Not Detected (NotDetected); Opiate Screen Not Detected (NotDetected); Oxycodone Screen Not Detected (NotDetected); Phencyclidine (PCP) Not Detected (NotDetected); THC/Cannabinoid Screen Not Detected (NotDetected); Tricyclic Screen Not Detected (NotDetected)
[2021-04-19] MEDS ORDERED: Albuterol Sulfate 2.5 mg/3 ml Neb NEB PRN (03:48)
[2021-04-19] MEDS ORDERED: Diazepam 5 MG TAB PO PRN (03:55)
[2021-04-19 04:14] LABS: #Basophils 0.1 thou/uL (0.0-0.2); #Eosinphils 0.1 thou/uL (0.0-0.7); #Lymphocytes 3.3 thou/uL (1.20-3.40); #Monocytes 0.7 thou/uL (0.11-0.59); #Neutrophils 5.4 thou/uL (1.40-6.50); %Basophils 0.8 % (0.0-1.0); %Eosinophils 1.1 % (0.0-10.0); %Lymphocytes 34.6 % (21.0-51.0); %Monocytes 6.8 % (0.0-10.0); %Neutrophils 56.7 % (42.0-75.0); Mean Corpuscular HGB CONC 31.1 g/dL (32.0-36.0); Mean Corpuscular Hemoglobin 23.6 pg (27.0-31.0); Mean Platelet Volume 7.9 fL (7.4-10.4); Platelet Count 232 thou/uL (130-400); Red Blood Cell (RBC) Count 4.24 mill/uL (4.70-6.10); White Blood Cell (WBC) Count 9.5 thou/uL (4.8-10.8)
[2021-04-19] MEDS ORDERED: Acetaminophen 500 MG TAB PO PRN (04:20)
[2021-04-19 04:34] LABS: Anion Gap 22 mmol/L (10-20); BUN (Urea Nitrogen) 34 mg/dL (8.9-20.6); Calc. Creatinine Clearance 0 mL/min (70-130); Calcium 8.3 mg/dL (7.8-10.44); Carbon Dioxide 23 mmol/L (22-29); Chloride 79 mmol/L (98-107); Glucose 86 mg/dL (70-105)
[2021-04-19 04:36] LABS: Sodium 119 mmol/L (136-145)
[2021-04-19] MEDS ORDERED: Diazepam 5 MG TAB PO SCH (05:00)
[2021-04-19] MEDS ORDERED: Thiamine HCl 200 MG/2 ML VIAL IM SCH (05:00)
[2021-04-19] MEDS ORDERED: Diazepam 5 MG TAB ONE (05:30)
[2021-04-19 05:41] LABS: SARS-CoV-2 NAA Rapid Test Not Detected (NotDetected)
[2021-04-19 07:59] LABS: Cardiac Risk 1.6 (Less than 4.5)
[2021-04-19] MEDS ORDERED: Enoxaparin Sodium 40 MG/0.4 ML SYRINGE SC SCH (09:00)
[2021-04-19] MEDS ORDERED: Folic Acid 1 MG TAB PO SCH (09:00)
[2021-04-19] MEDS ORDERED: Thiamine 100 MG TAB PO SCH (09:00)
[2021-04-19] MEDS ORDERED: Sotalol HCl 80 MG TAB PO SCH (09:00)
[2021-04-19] MEDS ORDERED: Cyanocobalamin (Vitamin B-12) 1,000 MCG TAB PO SCH (09:00)
[2021-04-19] MEDS ORDERED: Multivit, Therapeutic 1 TAB PO SCH (09:00)
[2021-04-19] MEDS ORDERED: Magnesium Oxide 400 MG TAB PO SCH (09:00)
[2021-04-19 09:23] LABS: Anion Gap 18 mmol/L (10-20); BUN (Urea Nitrogen) 33 mg/dL (8.9-20.6); Calc. Creatinine Clearance 0 mL/min (70-130); Calcium 8.6 mg/dL (7.8-10.44); Carbon Dioxide 27 mmol/L (22-29); Chloride 80 mmol/L (98-107); Glucose 88 mg/dL (70-105); Magnesium 2.5 mg/dL (1.6-2.6); Sodium 120 mmol/L (136-145)
[2021-04-19] MEDS ORDERED: Lorazepam 1 MG TAB PO PRN (09:42)
[2021-04-19] MEDS ORDERED: Thiamine 100 MG TAB ONE (09:51)
[2021-04-19] MEDS ORDERED: Enoxaparin Sodium 40 MG/0.4 ML SYRINGE ONE (09:51)
[2021-04-19] MEDS ORDERED: Folic Acid 1 MG TAB ONE (09:51)
[2021-04-19] MEDS ORDERED: Aspirin Chewable 81 MG TAB ONE (09:51)
[2021-04-19] MEDS: Sodium Chloride 0.9% 1,000 ML IV SCH (10:09)
[2021-04-19] MEDS: Aspirin 81 mg Enteric Coated Tablet PO SCH (10:09)
[2021-04-19] MEDS: Folic Acid 1 MG TAB PO SCH (10:09)
[2021-04-19] MEDS: Sotalol HCl 80 MG TAB PO SCH (10:10)
[2021-04-19] MEDS: Thiamine 100 MG TAB PO SCH (10:11)
[2021-04-19] MEDS ORDERED: Lorazepam 2 MG/ML VIAL SLOW IVP PRN (10:16)
[2021-04-19] MEDS: Cyanocobalamin (Vitamin B-12) 1,000 MCG TAB PO SCH (10:34)
[2021-04-19] MEDS: Ferrous Sulfate 325 MG TAB PO SCH (10:34)
[2021-04-19] MEDS: Multivitamin W/ Minerals 1 TAB PO SCH (10:34)
[2021-04-19 11:42] LABS: Anion Gap 23 mmol/L (10-20); BUN (Urea Nitrogen) 32 mg/dL (8.9-20.6); Calc. Creatinine Clearance 0 mL/min (70-130); Calcium 8.6 mg/dL (7.8-10.44); Carbon Dioxide 23 mmol/L (22-29); Chloride 79 mmol/L (98-107); Glucose 77 mg/dL (70-105); Potassium 4.6 mmol/L (3.5-5.1); Sodium 120 mmol/L (136-145)
[2021-04-19] MEDS ORDERED: chlordiazePOXIDE HCl 25 MG CAP PO SCH ×7 (12:00→21:00)
[2021-04-19 13:37] LABS: Anion Gap 24 mmol/L (10-20); BUN (Urea Nitrogen) 31 mg/dL (8.9-20.6); Calc. Creatinine Clearance 0 mL/min (70-130); Calcium 8.5 mg/dL (7.8-10.44); Carbon Dioxide 23 mmol/L (22-29); Chloride 81 mmol/L (98-107); Glucose 81 mg/dL (70-105); Sodium 123 mmol/L (136-145)
[2021-04-19 13:40] LABS: Prothrombin Time 13.2 sec (12.0-14.7)
[2021-04-19 13:41] LABS: PTT 37.7 sec (22.9-36.1)
[2021-04-19] MEDS ORDERED: chlordiazePOXIDE HCl 25 MG CAP ONE ×2 (14:18→21:49)
[2021-04-19 15:07] LABS: Anion Gap 20 mmol/L (10-20); BUN (Urea Nitrogen) 31 mg/dL (8.9-20.6); Calc. Creatinine Clearance 0 mL/min (70-130); Carbon Dioxide 26 mmol/L (22-29); Chloride 81 mmol/L (98-107); Glucose 82 mg/dL (70-105); Potassium 4.8 mmol/L (3.5-5.1); Sodium 122 mmol/L (136-145)
[2021-04-19 18:21] LABS: Anion Gap 21 mmol/L (10-20); BUN (Urea Nitrogen) 29 mg/dL (8.9-20.6); Calc. Creatinine Clearance 0 mL/min (70-130); Carbon Dioxide 22 mmol/L (22-29); Chloride 84 mmol/L (98-107); Glucose 95 mg/dL (70-105); Potassium 5.2 mmol/L (3.5-5.1); Sodium 122 mmol/L (136-145)
[2021-04-19 20:49] LABS: Anion Gap 20 mmol/L (10-20); BUN (Urea Nitrogen) 29 mg/dL (8.9-20.6); Calc. Creatinine Clearance 0 mL/min (70-130); Calcium 9.2 mg/dL (7.8-10.44); Carbon Dioxide 26 mmol/L (22-29); Chloride 84 mmol/L (98-107); Glucose 89 mg/dL (70-105); Potassium 5.4 mmol/L (3.5-5.1); Sodium 125 mmol/L (136-145)
[2021-04-19] MEDS ORDERED: Dextrose 5% in Water 1,000 ML IV SCH (21:15)
[2021-04-19] MEDS: chlordiazePOXIDE HCl 25 MG CAP PO SCH (22:10)
[2021-04-19 22:51] LABS: Anion Gap 19 mmol/L (10-20); BUN (Urea Nitrogen) 29 mg/dL (8.9-20.6); Calc. Creatinine Clearance 0 mL/min (70-130); Calcium 9.2 mg/dL (7.8-10.44); Carbon Dioxide 25 mmol/L (22-29); Chloride 84 mmol/L (98-107); Glucose 89 mg/dL (70-105); Potassium 5.2 mmol/L (3.5-5.1); Sodium 123 mmol/L (136-145)
[2021-04-20 01:07] LABS: Anion Gap 20 mmol/L (10-20); BUN (Urea Nitrogen) 26 mg/dL (8.9-20.6); Calc. Creatinine Clearance 0 mL/min (70-130); Carbon Dioxide 23 mmol/L (22-29); Chloride 84 mmol/L (98-107); Glucose 93 mg/dL (70-105); Potassium 5.2 mmol/L (3.5-5.1); Sodium 122 mmol/L (136-145)
[2021-04-20] MEDS: Nicotine 14 MG PATCH TD SCH ×2 (03:39→03:51)
[2021-04-20] MEDS: Sotalol HCl 80 MG TAB PO SCH ×3 (03:47→20:24)
[2021-04-20] MEDS: Melatonin 3 MG TAB PO SCH ×2 (03:47→21:32)
[2021-04-20] MEDS: chlordiazePOXIDE HCl 25 MG CAP PO SCH ×4 (03:48→17:40)
[2021-04-20] MEDS ORDERED: Diazepam 5 MG TAB PO PRN (04:00)
[2021-04-20 04:26] VITALS: BMI 55.7
[2021-04-20] MEDS: Sodium Chloride 0.9% 1,000 ML IV SCH ×2 (04:48→11:49)
[2021-04-20 05:47] LABS: Anion Gap 16 mmol/L (10-20); BUN (Urea Nitrogen) 25 mg/dL (8.9-20.6); Calc. Creatinine Clearance 107 mL/min (70-130); Calcium 9.3 mg/dL (7.8-10.44); Carbon Dioxide 28 mmol/L (22-29); Chloride 84 mmol/L (98-107); Glucose 95 mg/dL (70-105); Potassium 5.2 mmol/L (3.5-5.1); Sodium 123 mmol/L (136-145)
[2021-04-20] MEDS: Folic Acid 1 MG TAB PO SCH (08:31)
[2021-04-20] MEDS: Cyanocobalamin (Vitamin B-12) 1,000 MCG TAB PO SCH (08:31)
[2021-04-20] MEDS: Thiamine 100 MG TAB PO SCH (08:31)
[2021-04-20] MEDS: Aspirin 81 mg Enteric Coated Tablet PO SCH (08:31)
[2021-04-20] MEDS: Multivitamin W/ Minerals 1 TAB PO SCH (08:32)
[2021-04-20 08:57] LABS: Anion Gap 16 mmol/L (10-20); BUN (Urea Nitrogen) 25 mg/dL (8.9-20.6); Calc. Creatinine Clearance 112 mL/min (70-130); Calcium 9.1 mg/dL (7.8-10.44); Carbon Dioxide 26 mmol/L (22-29); Chloride 85 mmol/L (98-107); Glucose 91 mg/dL (70-105); Potassium 5.2 mmol/L (3.5-5.1); Sodium 122 mmol/L (136-145)
[2021-04-20] MEDS ORDERED: Thiamine 100 MG TAB PO SCH (09:00)
[2021-04-20] MEDS ORDERED: Magnesium Oxide 400 MG TAB PO SCH (09:00)
[2021-04-20] MEDS ORDERED: Apixaban 5 MG TAB PO SCH (10:30)
[2021-04-20 12:33] LABS: Anion Gap 15 mmol/L (10-20); BUN (Urea Nitrogen) 26 mg/dL (8.9-20.6); Calc. Creatinine Clearance 108 mL/min (70-130); Calcium 9.1 mg/dL (7.8-10.44); Carbon Dioxide 29 mmol/L (22-29); Chloride 84 mmol/L (98-107); Glucose 111 mg/dL (70-105); Potassium 5.1 mmol/L (3.5-5.1); Sodium 123 mmol/L (136-145)
[2021-04-20] MEDS ORDERED: traMADol HCl 50 MG TAB PO SCH (13:00)
[2021-04-20] MEDS ORDERED: traMADol HCl 50 MG TAB PO PRN (15:13)
[2021-04-20 16:52] LABS: Anion Gap 16 mmol/L (10-20); BUN (Urea Nitrogen) 27 mg/dL (8.9-20.6); Calc. Creatinine Clearance 104 mL/min (70-130); Calcium 8.9 mg/dL (7.8-10.44); Carbon Dioxide 25 mmol/L (22-29); Chloride 87 mmol/L (98-107); Glucose 109 mg/dL (70-105); Potassium 5.1 mmol/L (3.5-5.1); Sodium 123 mmol/L (136-145)
[2021-04-20] MEDS: Apixaban 5 MG TAB PO SCH (20:24)
[2021-04-21] MEDS: chlordiazePOXIDE HCl 25 MG CAP PO SCH ×4 (00:02→21:31)
[2021-04-21] MEDS: Sodium Chloride 0.9% 1,000 ML IV SCH (00:02)
[2021-04-21] MEDS: Nicotine 14 MG PATCH TD SCH (03:55)
[2021-04-21 05:16] LABS: Anion Gap 16 mmol/L (10-20); BUN (Urea Nitrogen) 27 mg/dL (8.9-20.6); Calc. Creatinine Clearance 108 mL/min (70-130); Carbon Dioxide 28 mmol/L (22-29); Chloride 89 mmol/L (98-107); Glucose 99 mg/dL (70-105); Potassium 4.6 mmol/L (3.5-5.1); Sodium 128 mmol/L (136-145)
[2021-04-21] MEDS: Aspirin 81 mg Enteric Coated Tablet PO SCH (08:44)
[2021-04-21] MEDS: Cyanocobalamin (Vitamin B-12) 1,000 MCG TAB PO SCH (08:44)
[2021-04-21] MEDS: Apixaban 5 MG TAB PO SCH ×2 (08:44→21:31)
[2021-04-21] MEDS: Folic Acid 1 MG TAB PO SCH (08:45)
[2021-04-21] MEDS: Thiamine 100 MG TAB PO SCH (08:46)
[2021-04-21] MEDS: Multivitamin W/ Minerals 1 TAB PO SCH (08:46)
[2021-04-21] MEDS: Sotalol HCl 80 MG TAB PO SCH ×2 (08:46→21:25)
[2021-04-21] MEDS: Ferrous Sulfate 325 MG TAB PO SCH (08:50)
[2021-04-21 12:43] LABS: Anion Gap 17 mmol/L (10-20); BUN (Urea Nitrogen) 25 mg/dL (8.9-20.6); Calc. Creatinine Clearance 119 mL/min (70-130); Calcium 9.3 mg/dL (7.8-10.44); Carbon Dioxide 27 mmol/L (22-29); Chloride 90 mmol/L (98-107); Glucose 99 mg/dL (70-105); Potassium 4.7 mmol/L (3.5-5.1); Sodium 129 mmol/L (136-145)
[2021-04-21] MEDS: Dextrose 5% in Water 1,000 ML IV SCH ×2 (15:03→23:40)
[2021-04-21] MEDS: Acetaminophen 650 MG/20.3 ML UDCUP PO PRN (15:04)
[2021-04-21 16:38] LABS: Anion Gap 15 mmol/L (10-20); BUN (Urea Nitrogen) 26 mg/dL (8.9-20.6); Calc. Creatinine Clearance 123 mL/min (70-130); Carbon Dioxide 28 mmol/L (22-29); Chloride 90 mmol/L (98-107); Glucose 108 mg/dL (70-105); Potassium 4.6 mmol/L (3.5-5.1); Sodium 128 mmol/L (136-145)
[2021-04-21] MEDS: Melatonin 3 MG TAB PO SCH (21:31)
[2021-04-22] MEDS: Nicotine 14 MG PATCH TD SCH (06:12)
[2021-04-22] MEDS: chlordiazePOXIDE HCl 25 MG CAP PO SCH ×3 (06:41→20:31)
[2021-04-22] MEDS: Cyanocobalamin (Vitamin B-12) 1,000 MCG TAB PO SCH (09:30)
[2021-04-22] MEDS: Multivitamin W/ Minerals 1 TAB PO SCH (09:30)
[2021-04-22] MEDS: Folic Acid 1 MG TAB PO SCH (09:30)
[2021-04-22] MEDS: Apixaban 5 MG TAB PO SCH ×2 (09:30→20:32)
[2021-04-22] MEDS: Aspirin 81 mg Enteric Coated Tablet PO SCH (09:31)
[2021-04-22] MEDS: Magnesium Oxide 400 MG TAB PO SCH (09:31)
[2021-04-22] MEDS: Sotalol HCl 80 MG TAB PO SCH ×2 (09:31→20:32)
[2021-04-22] MEDS: Thiamine 100 MG TAB PO SCH (09:31)
[2021-04-22] MEDS: Dextrose 5% in Water 1,000 ML IV SCH (09:45)
[2021-04-22] MEDS: Acetaminophen 650 MG/20.3 ML UDCUP PO PRN (09:45)
[2021-04-22] MEDS ORDERED: Furosemide 20 MG/2 ML VIAL SLOW IVP SCH (11:00)
[2021-04-22] MEDS: PHOS-NAK 1 PKT PACK PO SCH ×2 (11:16→20:31)
[2021-04-22] MEDS ORDERED: traMADol HCl 50 MG TAB PO PRN (12:00)
[2021-04-22 12:04] LABS: Hemoglobin A1c 4.8 % (4.0-6.0)
[2021-04-22 12:17] LABS: Anion Gap 16 mmol/L (10-20); BUN (Urea Nitrogen) 17 mg/dL (8.9-20.6); Calc. Creatinine Clearance 169 mL/min (70-130); Calcium 9.4 mg/dL (7.8-10.44); Carbon Dioxide 27 mmol/L (22-29); Chloride 91 mmol/L (98-107); Glucose 92 mg/dL (70-105); Potassium 4.2 mmol/L (3.5-5.1); Sodium 130 mmol/L (136-145)
[2021-04-22 16:33] LABS: Anion Gap 18 mmol/L (10-20); BUN (Urea Nitrogen) 18 mg/dL (8.9-20.6); Calc. Creatinine Clearance 168 mL/min (70-130); Calcium 9.2 mg/dL (7.8-10.44); Carbon Dioxide 26 mmol/L (22-29); Chloride 92 mmol/L (98-107); Glucose 109 mg/dL (70-105); Potassium 4.8 mmol/L (3.5-5.1); Sodium 131 mmol/L (136-145)
[2021-04-22] MEDS ORDERED: Docusate 100 MG CAP PO PRN (17:17)
[2021-04-22] MEDS ORDERED: Polyethylene Glycol 3350 17 GM Packet PO PRN (17:17)
[2021-04-22] MEDS: Melatonin 3 MG TAB PO SCH (20:32)
[2021-04-23] MEDS: Nicotine 14 MG PATCH TD SCH (04:22)
[2021-04-23 07:13] LABS: Anion Gap 13 mmol/L (10-20); BUN (Urea Nitrogen) 17 mg/dL (8.9-20.6); Calc. Creatinine Clearance 192 mL/min (70-130); Carbon Dioxide 30 mmol/L (22-29); Chloride 94 mmol/L (98-107); Potassium 4.8 mmol/L (3.5-5.1); Sodium 132 mmol/L (136-145)
[2021-04-23 07:14] LABS: Calcium 9.2 mg/dL (7.8-10.44); Glucose 108 mg/dL (70-105)
[2021-04-23] MEDS: Magnesium Oxide 400 MG TAB PO SCH (08:45)
[2021-04-23] MEDS: PHOS-NAK 1 PKT PACK PO SCH ×2 (08:45→20:27)
[2021-04-23] MEDS: Folic Acid 1 MG TAB PO SCH (08:46)
[2021-04-23] MEDS: Cyanocobalamin (Vitamin B-12) 1,000 MCG TAB PO SCH (08:46)
[2021-04-23] MEDS: Multivitamin W/ Minerals 1 TAB PO SCH (08:46)
[2021-04-23] MEDS: Aspirin 81 mg Enteric Coated Tablet PO SCH (08:46)
[2021-04-23] MEDS: Thiamine 100 MG TAB PO SCH (08:47)
[2021-04-23] MEDS: Apixaban 5 MG TAB PO SCH ×2 (08:48→20:27)
[2021-04-23] MEDS: chlordiazePOXIDE HCl 25 MG CAP PO SCH ×2 (08:48→20:27)
[2021-04-23] MEDS: Acetaminophen 650 MG/20.3 ML UDCUP PO PRN (10:26)
[2021-04-23] MEDS: Ferrous Sulfate 325 MG TAB PO SCH (10:27)
[2021-04-23] MEDS: Sotalol HCl 80 MG TAB PO SCH ×2 (11:34→20:27)
[2021-04-23] MEDS: Melatonin 3 MG TAB PO SCH (20:26)
[2021-04-24] MEDS: Nicotine 14 MG PATCH TD SCH (04:14)
[2021-04-24 05:58] LABS: Anion Gap 15 mmol/L (10-20); BUN (Urea Nitrogen) 12 mg/dL (8.9-20.6); Calc. Creatinine Clearance 199 mL/min (70-130); Calcium 9.3 mg/dL (7.8-10.44); Carbon Dioxide 29 mmol/L (22-29); Chloride 94 mmol/L (98-107); Glucose 111 mg/dL (70-105); Potassium 4.5 mmol/L (3.5-5.1); Sodium 133 mmol/L (136-145)
[2021-04-24] MEDS: Cyanocobalamin (Vitamin B-12) 1,000 MCG TAB PO SCH (08:25)
[2021-04-24] MEDS: Thiamine 100 MG TAB PO SCH (08:25)
[2021-04-24] MEDS: Apixaban 5 MG TAB PO SCH ×2 (08:26→20:41)
[2021-04-24] MEDS: Aspirin 81 mg Enteric Coated Tablet PO SCH (08:26)
[2021-04-24] MEDS: PHOS-NAK 1 PKT PACK PO SCH ×2 (08:26→20:41)
[2021-04-24] MEDS: Magnesium Oxide 400 MG TAB PO SCH (08:26)
[2021-04-24] MEDS: Multivitamin W/ Minerals 1 TAB PO SCH (08:26)
[2021-04-24] MEDS: Folic Acid 1 MG TAB PO SCH (08:26)
[2021-04-24 08:52] LABS: #Eosinphils 0.2 thou/uL (0.0-0.7); #Lymphocytes 1.5 thou/uL (1.20-3.40); #Monocytes 0.5 thou/uL (0.11-0.59); #Neutrophils 1.6 thou/uL (1.40-6.50); %Basophils 0.4 % (0.0-1.0); %Lymphocytes 38.2 % (21.0-51.0); %Neutrophils 43.4 % (42.0-75.0); Hemoglobin 9.5 g/dL (14.0-18.0); Mean Corpuscular HGB CONC 31.3 g/dL (32.0-36.0); Mean Corpuscular Hemoglobin 25.3 pg (27.0-31.0); Mean Corpuscular Volume 80.7 fL (78.0-98.0); Mean Platelet Volume 8.9 fL (7.4-10.4); Platelet Count 111 thou/uL (130-400); Platelet Morphology Comment Appears Decreased; Red Blood Cell (RBC) Count 3.77 mill/uL (4.70-6.10); White Blood Cell (WBC) Count 3.8 thou/uL (4.8-10.8)
[2021-04-24] MEDS: Sotalol HCl 80 MG TAB PO SCH ×3 (10:49→20:41)
[2021-04-24] MEDS: Nystatin Powder 15 GM BOT TOP SCH ×2 (12:03→20:41)
[2021-04-24] MEDS ORDERED: chlordiazePOXIDE HCl 25 MG CAP PO SCH ×2 (15:00→21:00)
[2021-04-24 19:23] VITALS: BP 128/71; TEMP 98.2
[2021-04-24] MEDS: Melatonin 3 MG TAB PO SCH (20:41)
== END 2021-04-24 21:40 | disposition home or self-care (01) | DRG 683 ==
LOC: ERS 23:52 → ERHOLD 04-19 01:49 → 2NO 04-20 03:27 → T4-B 04-22 18:37
PROVIDERS: ADMIT Emergency Medicine; ATTEND Emergency Medicine
DX: N17.9 Acute kidney failure, unspecified (principal); E87.1 Hypo-osmolality and hyponatremia; I13.0 Hypertensive heart and chronic kidney disease with heart failure and stage 1 through stage 4 chronic kidney disease, or unspecified chronic kidney disease; I48.92 Unspecified atrial flutter; I50.32 Chronic diastolic (congestive) heart failure; Z68.43 Body mass index [BMI] 50.0-59.9, adult; Z20.822 Contact with and (suspected) exposure to COVID-19; E78.5 Hyperlipidemia, unspecified; J44.9 Chronic obstructive pulmonary disease, unspecified; I48.91 Unspecified atrial fibrillation; F17.210 Nicotine dependence, cigarettes, uncomplicated; E66.01 Morbid (severe) obesity due to excess calories; Y90.8 Blood alcohol level of 240 mg/100 ml or more; D63.1 Anemia in chronic kidney disease; I50.810 Right heart failure, unspecified; G47.33 Obstructive sleep apnea (adult) (pediatric); F10.229 Alcohol dependence with intoxication, unspecified; E87.5 Hyperkalemia; N18.30 Chronic kidney disease, stage 3 unspecified; Z88.8 Allergy status to other drugs, medicaments and biological substances; Z79.899 Other long term (current) drug therapy; Z79.82 Long term (current) use of aspirin; Z90.49 Acquired absence of other specified parts of digestive tract; Z79.51 Long term (current) use of inhaled steroids; Z98.890 Other specified postprocedural states; E87.70 Fluid overload, unspecified; I89.0 Lymphedema, not elsewhere classified
CPT/HCPCS: 36415; 71045; 76770; 80048; 80053; 80061; 80306; 80307; 83036; 83690; 83735; 83880; 83930; 83935; 84300; 85025; 85610; 85730; 93005; 94640; 94660; J1650; J1940; J3411; J3475; J3490; J7620; U0002; U0005

== ENCOUNTER 2021-05-20 23:08 | Inpatient (IN) | payer OTHER ==
[2021-05-20] MEDS ORDERED: Norepinephrine 8 MG/0.9% NS 250 ML ONE ×2 (23:20→23:22)
[2021-05-20] MEDS ORDERED: Vecuronium 10 MG VIAL ONE ×2 (23:22→23:23)
[2021-05-20] MEDS ORDERED: Midazolam HCl 2 mg/2 ml Vial ONE (23:22)
[2021-05-20] MEDS ORDERED: Water For Inject, Bacteriostat 30 ML ONE (23:24)
[2021-05-20 23:45] LABS: Actual Bicarbonate (HCO3a) 22.3 mEq/L (22-28); Analyzer IN Cardio ER; Base Excess (BEa) -3.1 mEq/L (-2.0 to +3.0); CO2 Tension 41.5 mmHg (35.0-45.0); Calcium, Ionized (arterial) 0.98 mmol/L (1.12-1.30); Carboxyhemoglobin (COHb) 4.1 gm% (0.0-3.0); Hemoglobin (Hb) 11.4 g/dL (14.0-18.0); Potassium - ABG Lab 5.75 mmol/L (3.70-5.30); pH, Arterial 7.35 (7.35-7.45)
[2021-05-20] MEDS ORDERED: Acetaminophen 650 MG Suppository ONE (23:56)
[2021-05-20] MEDS ORDERED: Acetaminophen 325 MG Suppository ONE (23:56)
[2021-05-21] MEDS ORDERED: Fentanyl 100 MCG/2 ML VIAL ONE (00:01)
[2021-05-21 00:06] LABS: ALT (SGPT) 19 U/L (8-55); AST (SGOT) 39 U/L (5-34); Albumin 3.2 g/dL (3.5-5.0); Alcohol 146 mg/dL (Less than 10); Alkaline Phosphatase 127 U/L (40-110); Anion Gap 27 mmol/L (10-20); BUN (Urea Nitrogen) 10 mg/dL (8.9-20.6); Bilirubin, Total 0.5 mg/dL (0.2-1.2); Calc. Creatinine Clearance 0 mL/min (70-130); Calcium 8.1 mg/dL (7.8-10.44); Carbon Dioxide 23 mmol/L (22-29); Chloride 82 mmol/L (98-107); Globulin 3.4 g/dL (2.4-3.5); Glucose 113 mg/dL (70-105); Lipase 28 U/L (8-78); Potassium 6.1 mmol/L (3.5-5.1); Protein, Total 6.6 g/dL (6.0-8.3); Sodium 126 mmol/L (136-145)
[2021-05-21 00:08] LABS: Hemoglobin 10.6 g/dL (14.0-18.0); Mean Corpuscular HGB CONC 31.3 g/dL (32.0-36.0); Mean Corpuscular Volume 80.1 fL (78.0-98.0); Mean Platelet Volume 8.6 fL (7.4-10.4); Platelet Count 292 thou/uL (130-400); RBC Distribution Width 18.2 % (11.5-14.5); Red Blood Cell (RBC) Count 4.22 mill/uL (4.70-6.10); White Blood Cell (WBC) Count 17.1 thou/uL (4.8-10.8)
[2021-05-21 00:17] LABS: Band 2 % (5-11); Lymphocytes 57 % (21-51); MDiff Complete? YES; Monocytes 2 % (0-10); Myelocyte 2 % (0-0); Neutrophil 37 % (42-75); Platelet Clumps SLIGHT; Platelet Morphology Comment PLT clumps seen-ADEQ
[2021-05-21 00:31] LABS: CKMB 0.5 ng/mL (0-6.6)
[2021-05-21 00:31] LABS: SARS-CoV-2 NAA Rapid Test Not Detected (NotDetected)
[2021-05-21 00:40] LABS: ALV-art Gradient 447.125 mmHg (0-20); Puncture Site RRA
[2021-05-21] MEDS ORDERED: Sodium Bicarb 50 MEQ/50 ML Abboject 8.4% SYRINGE ONE (00:54)
[2021-05-21] MEDS ORDERED: Calcium Chloride 1 GM/10 ML Abboject SYRINGE ONE (00:54)
[2021-05-21] MEDS ORDERED: Insulin Regular 300 UNITS/3 ML VIAL ONE (00:54)
[2021-05-21] MEDS ORDERED: Cefepime 2 GM VIAL ONE (00:54)
[2021-05-21] MEDS ORDERED: Dextrose 50% Abboject 50 ML SYRINGE ONE (00:54)
[2021-05-21] MEDS ORDERED: Electrolyte Replacement Protocol 1 EACH IVPB PRN (00:58)
[2021-05-21] MEDS ORDERED: Acetaminophen 650 MG Suppository PR PRN (00:58)
[2021-05-21] MEDS ORDERED: HumaLOG 300 UNITS/3 ML VIAL SC PRN (00:58)
[2021-05-21] MEDS ORDERED: Ventilator Sedation Protocol 1 EACH FS SCH (01:00)
[2021-05-21] MEDS ORDERED: Morphine 2 MG/ML VIAL SLOW IVP PRN (01:30)
[2021-05-21] MEDS ORDERED: Lorazepam 2 MG/ML VIAL SLOW IVP PRN (01:30)
[2021-05-21] MEDS ORDERED: Fentanyl BOLUS 250 ML IVPB PRN (01:30)
[2021-05-21] MEDS ORDERED: Propofol BOLUS 1,000 MG/100 ML VIAL IV PRN (01:30)
[2021-05-21] MEDS ORDERED: DISCONTINUE PREVIOUS NARCOTIC PAIN MEDICATIONS AND BENZODIAZEPINES FS SCH (01:30)
[2021-05-21 01:36] LABS: Bacteria/HPF None Seen HPF (None Seen); Bilirubin Negative (Negative); Blood, Urine 3+ (Negative); Clarity Turbid (Clear); Glucose, Urine (Dipstick) 30 mg/dL (Negative); Ketone, Urine Negative (Negative); Leukocyte Negative Leu/uL (Negative); Nitrite Negative (Negative); Protein, Urine (Dipstick) 300 mg/dL (Neg-Trace); Specific Gravity, Urine 1.012 (1.002-1.036); Squamous Epithelial 0-3 HPF (0-3); Urobilinogen Normal mg/dL (Less than 2); pH, Urine 6.5 (5.0-9.0)
[2021-05-21 01:38] LABS: Amphetamine Not Detected (NotDetected); Barbiturates Screen Not Detected (NotDetected); Benzodiazepine Screen Detected (NotDetected); Cocaine Metabolite Screen Not Detected (NotDetected); Methadone Not Detected (NotDetected); Methamphetamine Not Detected (NotDetected); Opiate Screen Not Detected (NotDetected); Oxycodone Screen Not Detected (NotDetected); Phencyclidine (PCP) Not Detected (NotDetected); THC/Cannabinoid Screen Not Detected (NotDetected); Tricyclic Screen Detected (NotDetected)
[2021-05-21] MEDS ORDERED: Lactated Ringer's 1,000 ML IV SCH (02:00)
[2021-05-21] MEDS ORDERED: VANCOMYCIN 2 GRAM/400 ML BAG 2 GM in Premix Bag 1 BAG IVPB SCH (02:15)
[2021-05-21 02:42] LABS: INR-International Normal Ratio 1.4
[2021-05-21 02:43] LABS: PTT 33.5 sec (22.9-36.1)
[2021-05-21] MEDS ORDERED: Non-Formulary Item 1 EACH (Ipratropium/Albuterol Sulfate [Combivent Respimat] 120 PUFF In INH PRN (06:05)
[2021-05-21 06:48] LABS: Potassium 4.7 mmol/L (3.5-5.1)
[2021-05-21 06:49] LABS: Lactic Acid 3.1 mmol/L (0.5-2.2)
[2021-05-21] MEDS: Norepinephrine 8 MG/0.9% NS 250 ML IVPB PRN ×3 (07:28→17:55)
[2021-05-21] MEDS ORDERED: Vecuronium 10 MG VIAL ONE (08:08)
[2021-05-21] MEDS: Vecuronium 10 MG VIAL IVP PRN ×3 (08:10→11:10)
[2021-05-21] MEDS ORDERED: Vecuronium 10 MG VIAL IVP SCH (08:15)
[2021-05-21] MEDS ORDERED: Sodium Chloride 0.9% 2,000 ML IV SCH (08:15)
[2021-05-21] MEDS: Lactated Ringer's 1,000 ML IV SCH ×4 (08:17→22:47)
[2021-05-21 08:30] LABS: Actual Bicarbonate (HCO3a) 25.5 mEq/L (22-28); CO2 Tension 39.9 mmHg (35.0-45.0); Calcium, Ionized (arterial) 1.08 mmol/L (1.12-1.30); Carboxyhemoglobin (COHb) 1.1 gm% (0.0-3.0); Hemoglobin (Hb) 12.7 g/dL (14.0-18.0); O2 Tension (PaO2), arterial 61.6 mmHg (80.0-100.0); Potassium - ABG Lab 4.52 mmol/L (3.70-5.30); pH, Arterial 7.42 (7.35-7.45)
[2021-05-21 08:32] LABS: Puncture Site RRA
[2021-05-21 08:33] LABS: ALV-art Gradient 458.925 mmHg (0-20)
[2021-05-21 08:39] LABS: ALT (SGPT) 233 U/L (8-55); AST (SGOT) 345 U/L (5-34); Albumin 3.4 g/dL (3.5-5.0); Alkaline Phosphatase 152 U/L (40-110); Anion Gap 19 mmol/L (10-20); BUN (Urea Nitrogen) 21 mg/dL (8.9-20.6); Bilirubin, Total 1.5 mg/dL (0.2-1.2); CK (CPK) 497 U/L (30-200); Calc. Creatinine Clearance 95 mL/min (70-130); Calcium 9.2 mg/dL (7.8-10.44); Carbon Dioxide 28 mmol/L (22-29); Chloride 87 mmol/L (98-107); Globulin 3.6 g/dL (2.4-3.5); Glucose 98 mg/dL (70-105); Potassium 4.9 mmol/L (3.5-5.1); Sodium 129 mmol/L (136-145)
[2021-05-21 08:41] LABS: Band 5 % (5-11); Eosinophils 1 % (0-10); Hemoglobin 11.9 g/dL (14.0-18.0); Lymphocytes 16 % (21-51); MDiff Complete? YES; Mean Corpuscular HGB CONC 30.3 g/dL (32.0-36.0); Mean Corpuscular Hemoglobin 24.2 pg (27.0-31.0); Mean Corpuscular Volume 79.7 fL (78.0-98.0); Mean Platelet Volume 8.7 fL (7.4-10.4); Monocytes 11 % (0-10); Neutrophil 67 % (42-75); Nucleated RBC 1 % (0); Platelet Count 204 thou/uL (130-400); RBC Distribution Width 18.7 % (11.5-14.5); Red Blood Cell (RBC) Count 4.91 mill/uL (4.70-6.10); White Blood Cell (WBC) Count 16.8 thou/uL (4.8-10.8)
[2021-05-21] MEDS ORDERED: Enoxaparin Sodium 40 MG/0.4 ML SYRINGE SC SCH (09:00)
[2021-05-21] MEDS ORDERED: Furosemide 40 MG TAB PO SCH (09:00)
[2021-05-21] MEDS: Cyanocobalamin (Vitamin B-12) 1,000 MCG TAB PO SCH (09:04)
[2021-05-21] MEDS: Thiamine 100 MG TAB PO SCH (09:05)
[2021-05-21] MEDS: Folic Acid 1 MG TAB PO SCH (09:05)
[2021-05-21] MEDS: Aspirin 81 mg Enteric Coated Tablet PO SCH (09:05)
[2021-05-21] MEDS: PHOS-NAK 1 PKT PACK PO SCH ×2 (09:05→20:24)
[2021-05-21] MEDS: Famotidine/PF 20 mg/2ml Vial SLOW IVP SCH ×2 (09:05→20:24)
[2021-05-21] MEDS: Cefepime 2 GM in Sodium Chloride 0.9% 100 ML IVPB SCH ×2 (11:38→23:14)
[2021-05-21] MEDS: VANCOMYCIN 1.75 GM/350 ML BAG 1.75 GM in Premix Bag 1 BAG IVPB SCH ×2 (11:38→23:14)
[2021-05-21] MEDS: Propofol 1,000 MG/100 ML VIAL IV PRN (13:55)
[2021-05-21] MEDS: Apixaban 5 MG TAB PO SCH (20:24)
[2021-05-21] MEDS ORDERED: Fentanyl CADD 100 ML IV SCH (23:45)
[2021-05-22] MEDS: Norepinephrine 8 MG/0.9% NS 250 ML IVPB PRN ×3 (03:44→12:03)
[2021-05-22] MEDS: Propofol 1,000 MG/100 ML VIAL IV PRN (03:44)
[2021-05-22 05:01] LABS: ALT (SGPT) 853 U/L (8-55); AST (SGOT) 1097 U/L (5-34); Albumin 3.1 g/dL (3.5-5.0); Alkaline Phosphatase 123 U/L (40-110); Anion Gap 19 mmol/L (10-20); BUN (Urea Nitrogen) 21 mg/dL (8.9-20.6); Bilirubin, Total 2.1 mg/dL (0.2-1.2); CK (CPK) 681 U/L (30-200); Calc. Creatinine Clearance 100 mL/min (70-130); Calcium 8.6 mg/dL (7.8-10.44); Carbon Dioxide 26 mmol/L (22-29); Chloride 102 mmol/L (98-107); Globulin 3.3 g/dL (2.4-3.5); Glucose 121 mg/dL (70-105); Potassium 3.7 mmol/L (3.5-5.1); Protein, Total 6.4 g/dL (6.0-8.3); Sodium 143 mmol/L (136-145)
[2021-05-22] MEDS: Lactated Ringer's 1,000 ML IV SCH ×3 (05:18→14:00)
[2021-05-22 05:55] LABS: Hemoglobin 12.4 g/dL (14.0-18.0); Mean Corpuscular HGB CONC 29.6 g/dL (32.0-36.0); Mean Corpuscular Hemoglobin 23.7 pg (27.0-31.0); Mean Corpuscular Volume 80.2 fL (78.0-98.0); Mean Platelet Volume 11.6 fL (7.4-10.4); Platelet Count 93 thou/uL (130-400); RBC Distribution Width 19.4 % (11.5-14.5); Red Blood Cell (RBC) Count 5.21 mill/uL (4.70-6.10); White Blood Cell (WBC) Count 18.5 thou/uL (4.8-10.8)
[2021-05-22 05:59] LABS: #Basophils 0.1 thou/uL (0.0-0.2); #Lymphocytes 3.3 thou/uL (1.20-3.40); #Monocytes 0.4 thou/uL (0.11-0.59); #Neutrophils 14.7 thou/uL (1.40-6.50); %Basophils 0.4 % (0.0-1.0); %Eosinophils 0.1 % (0.0-10.0); %Lymphocytes 17.9 % (21.0-51.0); %Monocytes 2.4 % (0.0-10.0); %Neutrophils 79.3 % (42.0-75.0); Platelet Morphology Comment Appears Decreased
[2021-05-22] MEDS ORDERED: Lactated Ringer's 1,000 ML IV SCH (07:00)
[2021-05-22 07:05] LABS: Actual Bicarbonate (HCO3a) 24.9 mEq/L (22-28); Base Excess (BEa) 0.2 mEq/L (-2.0 to +3.0); CO2 Tension 40.3 mmHg (35.0-45.0); Calcium, Ionized (arterial) 1.08 mmol/L (1.12-1.30); Carboxyhemoglobin (COHb) 0.6 gm% (0.0-3.0); Hemoglobin (Hb) 13.1 g/dL (14.0-18.0); Potassium - ABG Lab 3.62 mmol/L (3.70-5.30); pH, Arterial 7.41 (7.35-7.45)
[2021-05-22 07:15] LABS: ALV-art Gradient 236.125 mmHg (0-20); Puncture Site RRA
[2021-05-22] MEDS ORDERED: Pantoprazole 40 MG VIAL IVP SCH (09:00)
[2021-05-22] MEDS ORDERED: EPINEPHrine 4 MG in Dextrose 5% in Water 250 ML IV SCH (09:30)
[2021-05-22] MEDS: Cyanocobalamin (Vitamin B-12) 1,000 MCG TAB PO SCH (09:41)
[2021-05-22] MEDS: Folic Acid 1 MG TAB PO SCH (09:41)
[2021-05-22] MEDS: Aspirin 81 mg Enteric Coated Tablet PO SCH (09:41)
[2021-05-22] MEDS: Thiamine 100 MG TAB PO SCH (09:41)
[2021-05-22] MEDS: PHOS-NAK 1 PKT PACK PO SCH (09:41)
[2021-05-22] MEDS: Apixaban 5 MG TAB PO SCH (09:42)
[2021-05-22] MEDS: Famotidine/PF 20 mg/2ml Vial SLOW IVP SCH (09:54)
[2021-05-22 10:27] VITALS: TEMP 99.7
[2021-05-22 11:38] LABS: Vancomycin, Trough 45.5 ug/mL
[2021-05-22] MEDS: Cefepime 2 GM in Sodium Chloride 0.9% 100 ML IVPB SCH (12:06)
[2021-05-22 12:14] LABS: INR-International Normal Ratio 3.9; Prothrombin Time 38.3 sec (12.0-14.7)
[2021-05-22] MEDS: VANCOMYCIN 1.75 GM/350 ML BAG 1.75 GM in Premix Bag 1 BAG IVPB SCH (12:14)
[2021-05-22] MEDS ORDERED: VANCOMYCIN 1.75 GM/350 ML BAG 1.75 GM in Premix Bag 1 BAG IVPB SCH (12:15)
[2021-05-22 12:20] VITALS: BMI 53.4
== END 2021-05-22 14:45 | disposition expired | DRG 922 ==
LOC: ERS 23:08 → CCU 05-21 01:01
PROVIDERS: ADMIT Family Medicine; ATTEND Family Medicine
PROC: 5A1945Z Respiratory Ventilation, 24-96 Consecutive Hours (ICD-10-PCS; principal; 2021-05-20)
PROC: 0D9670Z Drainage of Stomach with Drainage Device, Via Natural or Artificial Opening (ICD-10-PCS; 2021-05-20)
PROC: 3E043XZ Introduction of Vasopressor into Central Vein, Percutaneous Approach (ICD-10-PCS; 2021-05-20)
PROC: 06HY33Z Insertion of Infusion Device into Lower Vein, Percutaneous Approach (ICD-10-PCS; 2021-05-20)
DX: T67.01XA Heatstroke and sunstroke, initial encounter (principal); A41.9 Sepsis, unspecified organism; K72.00 Acute and subacute hepatic failure without coma; R65.21 Severe sepsis with septic shock; J96.21 Acute and chronic respiratory failure with hypoxia; J18.9 Pneumonia, unspecified organism; I21.9 Acute myocardial infarction, unspecified; I13.0 Hypertensive heart and chronic kidney disease with heart failure and stage 1 through stage 4 chronic kidney disease, or unspecified chronic kidney disease; Z68.43 Body mass index [BMI] 50.0-59.9, adult; E87.1 Hypo-osmolality and hyponatremia; I50.32 Chronic diastolic (congestive) heart failure; G93.1 Anoxic brain damage, not elsewhere classified; M62.82 Rhabdomyolysis; N17.9 Acute kidney failure, unspecified; J44.0 Chronic obstructive pulmonary disease with (acute) lower respiratory infection; I46.8 Cardiac arrest due to other underlying condition; E78.5 Hyperlipidemia, unspecified; F17.210 Nicotine dependence, cigarettes, uncomplicated; E66.01 Morbid (severe) obesity due to excess calories; I48.91 Unspecified atrial fibrillation; E87.6 Hypokalemia; I45.10 Unspecified right bundle-branch block; D63.1 Anemia in chronic kidney disease; N18.9 Chronic kidney disease, unspecified; I08.1 Rheumatic disorders of both mitral and tricuspid valves; F10.20 Alcohol dependence, uncomplicated; E87.5 Hyperkalemia; Z20.822 Contact with and (suspected) exposure to COVID-19; Z78.1 Physical restraint status; Z86.79 Personal history of other diseases of the circulatory system; Z90.49 Acquired absence of other specified parts of digestive tract; Z90.89 Acquired absence of other organs; Z74.01 Bed confinement status; Z79.899 Other long term (current) drug therapy; Z88.8 Allergy status to other drugs, medicaments and biological substances; Z79.82 Long term (current) use of aspirin; Z79.01 Long term (current) use of anticoagulants; Z98.890 Other specified postprocedural states; X30.XXXA Exposure to excessive natural heat, initial encounter; Y90.6 Blood alcohol level of 120-199 mg/100 ml
CPT/HCPCS: 0240U; 31500; 36415; 36556; 36600; 43752; 51702; 71045; 78610; 80053; 80202; 80306; 80307; 81003; 81015; 82550; 82553; 82805; 83605; 83690; 83880; 84132; 84145; 84484; 85025; 85610; 85730; 87040; 87086; 87149; 93005; 93306; 94002; 94003; 94640; 94760; 96365; 96366; 96375; 99292; A9521; C9113; J0171; J0692; J1650; J1815; J2060; J2250; J2270; J2704; J3010; J3370; J3490; J7070; J7620; S0028